=== PATIENT | female | born 1935 | race Caucasian/White ===

== ENCOUNTER 2018-05-09 16:05 | Inpatient (IN) | payer MEDICARE, OTHER ==
[~2018-05-09] VITALS: Ht 160 cm; Wt 59.7 kg
[~2018-05-09 16:05] MED LIST: APIX2.5T PO; ATOR10TA65 PO; CALC500T99 PO; CARV3.12 PO; CENTSILV PO; FERR325C PO; FURO-109 PO; LEVO-86 PO; PANT40TA4 PO; [UNRECOGNIZED DRUG - CODE] PO
[2018-05-09] MEDS ORDERED: SOD CHLORIDE 0.9% 500 ML IV STA (16:31)
--- NOTE | 2018-05-09 16:34 | ERD ---
ER Documentation Chief Complaint Chief Complaint BLOOD IN STOOL AND FEELING LIGHT HEADED HPI This is a 82-year-old female here for bright red blood in from rectum. The patient says she had a bowel movement today when she wiped there was bright red blood on the toilet paper. She says she is been constipated lately with straining. She says she does not remember if she was straining with his bowel movement. She said that she has no abdominal pain no rectal pain. The nephew has been taking care of her while the usual caretakers been out of town and he said that she has been sleeping more than usual and not eating quite as much. Patient has some mild dementia. She denies any cough or dysuria no vomiting or fever ROS All systems reviewed and are negative except as per history of present illness. Medications Home Meds Active Scripts Pantoprazole* (Pantoprazole*) 40 Mg Tabec, 40 MG PO DAILY@06 for 30 Days Prov:REGESTELLA SAUL 02/27/15 Furosemide* (Lasix*) 40 Mg Tab, 40 MG PO DAILY for 30 Days, TAB Prov:ESTELLA DRAKE 02/27/15 Reported Medications Apixaban* (Eliquis*) 2.5 Mg Tablet, 2.5 MG PO BID, TAB 02/22/15 Calcium Carbonate ([id number]) 1 Tab Tablet, 1 TAB PO BID, TAB 02/22/15 Atorvastatin Calcium (Atorvastatin Calcium) 10 Mg Tablet, 10 MG PO QHS, #30 TAB 02/22/15 Carvedilol* (Coreg*) 3.125 Mg Tablet, 3.125 MG PO BID, TAB 02/22/15 Levothyroxine Sodium (Levothroid) 100 Mcg Tablet, 100 MCG PO DAILY 02/22/12 Ferrous Sulfate (Iron) 325 Mg Capsr, 325 MG PO TID 02/22/12 Cyanocobalamin (Cyanocobalamin) 1,000 Mcg Tablet, 1000 MCG PO DAILY 02/22/12 Multivitamins/Minerals (Centrum Silver) 1 Tab Tab, 1 TAB PO DAILY 07/04/11 Allergies Allergies: Coded Allergies: No Known Allergy (Unverified , 03/01/15) PMhx/Soc History of Surgery: Yes (see EMR) Anesthesia Reaction: No 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 EDEMA) Hx Psychiatric Problems: Yes (PSYCHOSIS) Hx Miscellaneous Medical Probl: No Hx Alcohol Use: No Hx Substance Use: No Hx Tobacco Use: No FmHx Family History: No coronary disease Physical Exam Vitals Vital Signs Date Temp Pulse Resp B/P (MAP) Pulse Ox O2 O2 Flow FiO2 Time Delivery Rate 05/09/18 Nasal 16:38 Cannula 05/09/18 98.0 60 18 110/59 99 Room Air 16:35 (76) 05/09/18 97.2 71 18 111/55 99 16:11 (73) Physical Exam Const: Well-developed, well-nourished Head: Atraumatic, normocephalic Eyes: Normal Conjunctiva, PERRLA, EOMI, normal sclera, no nystagmus ENT: Normal External Ears, Nose and Mouth, moist mucus membranes. Neck: Full range of motion. No meningismus, no lymphadenopathy. Resp: Clear to auscultation bilaterally, no wheezing, rhonchi, rales Cardio: Regular rate and rhythm, no murmurs, S1 S2 present Abd: Soft, non tender x 4, non distended. Normal bowel sounds, no guarding or rebound, no pulsitile abdominal masses or bruits Skin: No petechiae or rashes, no ecchymosis , no maculopapular rash Back: No midline or flank tenderness Ext: No cyanosis, or edema, FROM x 4, normal inspection, neurovascularly intact x 4 Neur: Awake and alert, STR 5/5 x 4, sensation intact x 4, no focal findings, cerebellum intact Psych: Normal Mood and Affect Result Diagram: 05/09/18 1651 05/09/18 1651 Results 24 hrs Laboratory Tests Test 05/09/18 16:51 White Blood Count 8.1 10^3/ul Red Blood Count 2.23 10^6/ul Hemoglobin 7.6 g/dl Hematocrit 24.5 % Mean Corpuscular Volume 109.9 fl Mean Corpuscular Hemoglobin 34.1 pg Mean Corpuscular Hemoglobin Concent 31.0 g/dl Red Cell Distribution Width 13.9 % Platelet Count 223 10^3/UL Mean Platelet Volume 9.1 fl Immature Granulocytes % 0.500 % Neutrophils % 80.2 % Lymphocytes % 10.1 % Monocytes % 7.5 % Eosinophils % 1.2 % Basophils % 0.5 % Nucleated Red Blood Cells % 0.0 /100WBC Immature Granulocytes # 0.040 10^3/ul Neutrophils # 6.5 10^3/ul Lymphocytes # 0.8 10^3/ul Monocytes # 0.6 10^3/ul Eosinophils # 0.1 10^3/ul Basophils # 0.0 10^3/ul Nucleated Red Blood Cells # 0.0 10^3/ul Prothrombin Time 16.2 Sec Prothrombin Time Ratio 1.3 INR International Normalized Ratio 1.29 Activated Partial Thromboplast Time 30.1 Sec Sodium Level 139 mmol/L Potassium Level 4.4 mmol/L Chloride Level 102 mmol/L Carbon Dioxide Level 26 mmol/L Anion Gap 11 Blood Urea Nitrogen 43 mg/dl Creatinine 1.88 mg/dl Est Glomerular Filtrat Rate mL/min mL/min Glucose Level 117 mg/dl Calcium Level 9.4 mg/dl Total Bilirubin 0.0 mg/dl Direct Bilirubin 0.00 mg/dl Indirect Bilirubin 0.0 mg/dl Aspartate Amino Transf (AST/SGOT) 27 IU/L Alanine Aminotransferase (ALT/SGPT) 20 IU/L Alkaline Phosphatase 55 IU/L Total Protein 6.6 g/dl Albumin 3.9 g/dl Globulin 2.70 g/dl Albumin/Globulin Ratio 1.44 Current Medications Medications Dose Sig/Arvin Start Time Status Last (Trade) Ordered Route PRN Stop Time Admin Dose Reason Admin Sodium 500 ml @ Q1H STAT 05/09/18 DC 05/09/18 Chloride 500 mls/hr IV 16:31 16:48 05/09/18 17:30 Procedures/MDM PROCEDURE: CT abdomen and pelvis without contrast. CLINICAL INDICATION: GI bleed TECHNIQUE: CT scan of the abdomen and pelvis without contrast was performed and is reconstructed at 2.5 mm contiguous axial intervals from the dome of the diaphragm to the inferior pubic rami.. The patient was scanned without intravenous contrast. Sagittal and coronal reformatted images were obtained from the axial source images. The calculated radiation dose measures 627 mGy centimeters. The CTDI measures 11.7 mGy. Individualized dose optimization technique was used for the performance of this exam. This included 1. Automated exposure control. 2. Adjustment of the mA and / or kV according to the patient's size. 3. Use of iterative reconstructed technique. COMPARISON: None. FINDINGS: Lungs are clear of any infiltrate or mass. There is no pleural effusion. There is cardiomegaly with a small pericardial effusion. The patient is post transaortic valve replacement. The liver is of normal size, contour and attenuation with no mass . Gallbladder has been removed and there is mild intrahepatic and extrahepatic bile duct dila tation. No stone is seen.. No splenic, adrenal or pancreatic abnormalities present. The left kidney is atrophic. Right kidney is of normal size. Noted is a 15 mm cortical cyst of the right kidney. No hydronephrosis, calculus or masses seen. Ureters are of normal course and caliber with no stone. No bladder masses stone is present. Atrophic postmenopausal uterus appears normal. Atrophic postmenop ausal uterus appears normal. No adnexal mass is seen. There is no aneurysm. There is calcified plaque in the aorta and iliac arteries. No adenopathy is present. No bowel mass or obstruction is present. There is diverticulosis. The appendix is not confidently visualized.. No phlegmon, ascites or pneumoperitoneum is visualized. Senescent degenerative changes are seen in the spine. There is a chronic mild superior endplate compression fracture of T12. IMPRESSION: No evidence of urolithiasis, obstructive uropathy or diverticulitis. Diverticulosis. Nonvisualization appendix. Atrophic left kidney. Right renal cyst. No further workup required. Cholecystectomy. Cardiomegaly. T A V R.. Vascular calcifications. .Trevor Horn MD, MD Date Time Electronically viewed and signed by .Trevor Horn MD, MD on 05/09/2018 17:25 .A/ CC: EDYTA GARZON DO [id number] Ordering MD: EDYTA GARZON DO Location: E/R Room/Bed: PROCEDURE: XR Chest. CLINICAL INDICATION: GI bleed TECHNIQUE: Frontal chest x-ray was obtained. COMPARISON: Chest x-ray January 26, 2016 FINDINGS: There is cardiomegaly. Pacemaker wire is seen in the heart and patient is status post transaortic valve replacement.. Mediastinum is not widened. No hilar masses seen. Lungs are clear of any infiltrates. There is no effusion or pneumothorax. The osseous structures appear normal. IMPRESSION: Cardiomegaly. No pneumonia or failure. .Trevor Horn MD, Date Time Electronically viewed and signed by .Trevor Horn MD, on 05/09/2018 17:15 .A/ CC: EDYTA GARZON DO [id number] Type and cross 2 units of packed red cells to get for hemoglobin of 7.6. Patient is having some lower GI bleeding, she is on Xarelto for blood thinning purposes and is anemia requiring some blood I think is best to admit her give her some blood, have GI see her for colonoscopy. She likely has internal hemorrhoids but we need to make sure there is no other pathology there. I have paged Dr. robertson Departure Diagnosis: Primary Impression: Lower GI bleed Condition: Stable EDYTA GARZON DO May 09, 2018 16:34
[2018-05-09] MEDS ORDERED: ONDANSETRON 4 MG INJ IV PRN (21:00)
[2018-05-09] MEDS ORDERED: ACETAMINOPHEN 325 MG TAB PO PRN (21:00)
--- NOTE | 2018-05-09 21:15 | HP ---
Date/Time of Note Date/Time of Note DATE: 05/09/18 TIME: 21:03 Assessment/Plan VTE Prophylaxis SCD applied (from Nsg): Yes Pharmacological prophylaxis: NA/contraindicated Pharm contraindication: bleeding Lines/Catheters IV Catheter Type (from Nrsg): Saline Lock Assessment/Plan Hospital Course 82 yo female with h/o TAVR, A Fib on Xarelto, CKD II, dementia presents with GI bleeding Acute blood loss anemia: - Hold Xarelto - Transfuse PRBCs and monitor H/H - Start PPI - GI consulted A Fib, s/p TAVR: - Hold Xarelto for now - [facility] Dr Garcia alerted to admission, will see on Friday. If needed contact Dr Michelle tomorrow S/p PPM for SSS CKD III: - Stable, monitor creatinine CHF: - Continue lasix - Hold Coreg and Entresto until hemodynamics and bleeding stabilize Dementia: - Stable Dispo to home when stable Result Diagram: 05/09/18 1651 05/09/18 1651 Results 24hrs Laboratory Tests Test 05/09/18 16:51 White Blood Count 8.1 Red Blood Count 2.23 #L Hemoglobin 7.6 #L Hematocrit 24.5 #L Mean Corpuscular Volume 109.9 H Mean Corpuscular Hemoglobin 34.1 H Mean Corpuscular Hemoglobin Concent 31.0 L Red Cell Distribution Width 13.9 Platelet Count 223 Mean Platelet Volume 9.1 Immature Granulocytes % 0.500 H Neutrophils % 80.2 H Lymphocytes % 10.1 L Monocytes % 7.5 Eosinophils % 1.2 Basophils % 0.5 Nucleated Red Blood Cells % 0.0 Immature Granulocytes # 0.040 H Neutrophils # 6.5 Lymphocytes # 0.8 Monocytes # 0.6 Eosinophils # 0.1 Basophils # 0.0 Nucleated Red Blood Cells # 0.0 Prothrombin Time 16.2 H Prothrombin Time Ratio 1.3 INR International Normalized Ratio 1.29 Activated Partial Thromboplast Time 30.1 Sodium Level 139 Potassium Level 4.4 Chloride Level 102 Carbon Dioxide Level 26 Anion Gap 11 Blood Urea Nitrogen 43 H Creatinine 1.88 H Est Glomerular Filtrat Rate mL/min Glucose Level 117 Calcium Level 9.4 Total Bilirubin 0.0 L Direct Bilirubin 0.00 Indirect Bilirubin 0.0 Aspartate Amino Transf (AST/SGOT) 27 Alanine Aminotransferase (ALT/SGPT) 20 Alkaline Phosphatase 55 Total Protein 6.6 Albumin 3.9 Globulin 2.70 Albumin/Globulin Ratio 1.44 HPI/ROS Admit Date/Time Admit Date/Time Hx of Present Illness 82 yo female wtih h/o TAVR, A Fib s/p PPM, COPD, CKD II, dementia presenting with hematochezia Patient with mild dementia, unable to provide comprehensive history. Says she generally feels well however. No pain, no SOB. Per daughter at bedside, her mother complained of blood in the toilet today. She has noticed her being less energetic lately as well. In ED, found to be anemic to 7 Hgb, being tranfused PRBCs. No other complaints. Currently on Xarelto. No NSAIDs ROS Constitutional: no complaints, improved Eyes: no complaints ENT: no complaints Respiratory: no complaints Cardiovascular: no complaints Gastrointestinal: no complaints Genitourinary: no complaints Musculoskeletal: no complaints Skin: no complaints Neurologic: no complaints Endocrine: no complaints Lymphatic: no complaints Psychological: no complaints, nl mood/affect Immunologic: no complaints PMH/Family/Social Past Medical History TAVR Dementia CHF CKD II Medications Current Medications Ondansetron HCl (Zofran Inj) 4 mg ER BRIDGE PRN IV NAUSEA/VOMITING; Start 05/09/18 at 21:00; Stop 05/10/18 at 20:59 Acetaminophen (Tylenol Tab) 650 mg ER BRIDGE PRN PO .MILD PAIN 1-3 OR TEMP; Start 05/09/18 at 21:00; Stop 05/10/18 at 20:59 Coded Allergies: No Known Allergy (Unverified , 03/01/15) Social History Smoking Status: Never smoker Exam/Review of Systems Vital Signs Vitals Vital Signs Date Temp Pulse Resp B/P (MAP) Pulse Ox O2 O2 Flow FiO2 Time Delivery Rate 05/09/18 Nasal 16:38 Cannula 05/09/18 98.0 60 18 110/59 99 16:35 (76) Exam Exam Alert, pleasant, interactive Pale No distress Mild dementia RRR, 1/6 systolic murmur Slightly elevated neck veins Breathing comfortably Abdomen soft nt nd Ext without edema ANNE MARIEGRKATHY ELIZABETH MD May 09, 2018 21:15
[2018-05-09] MEDS ORDERED: NACL 0.9% 3 ML SYG IV SCH (21:30)
[2018-05-09 21:47] VITALS: PULSE 60
[2018-05-09] MEDS: PANTOPRAZOLE 40 MG INJ IV SCH (23:40)
[2018-05-10] VITALS (13 sets, daily range): BP systolic 116–172; BP diastolic 56–85; PULSE 60–79; RESP 18–20
[2018-05-10] MEDS: DEXTROSE 5% 1,000 ML IV SCH ×3 (03:11→23:13)
[2018-05-10] MEDS: LEVOTHYROXINE 100 MCG TAB PO SCH (05:59)
[2018-05-10] MEDS: PANTOPRAZOLE 40 MG INJ IV SCH ×2 (06:01→17:00)
[2018-05-10] MEDS: FUROSEMIDE 40 MG TAB PO SCH (08:45)
[2018-05-10] MEDS ORDERED: LEVOTHYROXINE (25 MCG/ML PO SYG) PO SCH (09:00)
--- NOTE | 2018-05-10 13:32 | CONS ---
Assessment/Plan Assessment/Plan Assessment/Plan (Daily) Assessment: Hematochezia Anemia Dementia A-fib - on Xarelto - held CKD CHF Plan: Colonoscopy tomorrow Clear liquid diet INR - 1.29 Monitor H and H Transfuse for hemoglobin less then 7.5 Patient seen in collaboration with Dr. Hendrickson Consultation Date/Type/Reason Admit Date/Time Date of Consultation: May 10, 2018 Type of Consult GI Reason for Consultation Hematochezia Date/Time of Note DATE: 05/10/18 TIME: 13:18 Hx of Present Illness This is an 82 yo female with h/o TAVR, A Fib s/p PPM, COPD, CKD II, dementia who was admitted for rectal bleeding that started yesterday. Patient had Hgb of 7.6 requiring a blood transfusion . She denies any h/o EGD of colonoscopy. She was on Xarelto for A-fib. Currently denies abd pain, nausea, vomiting, Hematemesis, Melena, diarrhea or constipation . Patient has occasional constipation at baseline. The plan is to prep the patient for Colonoscopy for tomorrow. Risks and benefits of the procedure have been discussed with the patient. Patient is agreeable to the procedure. Gastrointestinal: no complaints Past Medical History CHF, A-fib, CKD, Dementia Home Meds Active Scripts Pantoprazole* (Pantoprazole*) 40 Mg Tabec, 40 MG PO DAILY@06 for 30 Days Prov:ESTELLA DRAKE 02/27/15 Furosemide* (Lasix*) 40 Mg Tab, 40 MG PO DAILY for 30 Days, TAB Prov:ESTELLA DRAKE 02/27/15 Reported Medications Apixaban* (Eliquis*) 2.5 Mg Tablet, 2.5 MG PO BID, TAB 02/22/15 Calcium Carbonate ([id number]) 1 Tab Tablet, 1 TAB PO BID, TAB 02/22/15 Atorvastatin Calcium (Atorvastatin Calcium) 10 Mg Tablet, 10 MG PO QHS, #30 TAB 02/22/15 Carvedilol* (Coreg*) 3.125 Mg Tablet, 3.125 MG PO BID, TAB 02/22/15 Levothyroxine Sodium (Levothroid) 100 Mcg Tablet, 100 MCG PO DAILY 02/22/12 Ferrous Sulfate (Iron) 325 Mg Capsr, 325 MG PO TID 02/22/12 Cyanocobalamin (Cyanocobalamin) 1,000 Mcg Tablet, 1000 MCG PO DAILY 02/22/12 Multivitamins/Minerals (Centrum Silver) 1 Tab Tab, 1 TAB PO DAILY 07/04/11 Medications Current Medications Ondansetron HCl (Zofran Inj) 4 mg ER BRIDGE PRN IV NAUSEA/VOMITING; Start 05/09/18 at 21:00; Stop 05/10/18 at 20:59 Acetaminophen (Tylenol Tab) 650 mg ER BRIDGE PRN PO .MILD PAIN 1-3 OR TEMP; Start 05/09/18 at 21:00; Stop 05/10/18 at 20:59 Furosemide (Lasix) 40 mg DAILY PO Last administered on 05/10/18at 08:45; Admin Dose 40 MG; Start 05/10/18 at 09:00 Levothyroxine Sodium (Synthroid) 100 mcg DAILY@06 PO ; Start 05/10/18 at 06:00 IV Flush (NS 3 ml) 3 ml PER PROTOCOL IV ; Start 05/09/18 at 21:30 Pantoprazole (Protonix Iv) 40 mg BID@0600,1800 IV Last administered on 05/10/18at 06:01; Admin Dose 40 MG; Start 05/09/18 at 21:30 Dextrose 1,000 ml @ 80 mls/hr [id number] IV Last administered on 05/10/18at 10:26; Admin Dose 80 MLS/HR; Start 05/09/18 at 21:30 Allergies: Coded Allergies: No Known Allergy (Unverified , 03/01/15) Social History Alcohol Use: none Smoking Status: Never smoker Drug Use: none Exam/Review of Systems Exam Vitals Vital Signs Date Temp Pulse Resp B/P (MAP) Pulse Ox O2 O2 Flow FiO2 Time Delivery Rate 05/10/18 60 12:43 05/10/18 97.8 19 132/66 96 11:25 (88) 05/10/18 Room Air 03:45 Intake and Output 05/09/18 05/09/18 05/10/18 1515:00 23:00 07:00 IntakeIntake Total 240 ml OutputOutput Total 2 ml BalanceBalance 238 ml Exam PHYSICAL EXAMINATION: GENERAL: Well developed, well nourished, alert & oriented x 3, in no acute d istress SKIN: No lesions, no stigmata chronic liver disease, no evidence of bleeding diathesis LYMPHATIC: No palpable lymphadenopathy. HEAD: Normocephalic, atraumatic, no tenderness. EYES: Pupils equal reactive to light and accommodation, full extraocular movements, sclera clear, non-icteric, no discharge. EARS/NOSE AND THROAT: Ears normal, nose normal, oropharynx normal, oral membranes well hydrated without lesions. NECK: Supple, no masses, thyroid normal, JVP within normal limits, carotids nor mal without bruits. CHEST: Inspection within normal limits. CARDIOVASCULAR: Heart: Regular rate and rhythm, no murmurs, gallops or rubs. Peripheral pulses present within normal limits, no cyanosis, clubbing or edemas. No pulsatile abdominal mass RESPIRATORY: Lungs clear to auscultation and percussion, no wheezing, no rubs GASTROINTESTINAL AND LIVER: Abdomen: Soft, non tenderness, non-distended, no hernias, no masses, no organomegaly, no ascites, no guarding, no rebound tenderness, normoactive bowel sounds. Rectal: Deferred. GENITOURINARY: Female genitalia within normal limits. EXTREMITIES: No cyanosis, clubbing or edema. Results Result Diagram: 05/10/18 0459 05/10/18 0459 Results 24hrs Laboratory Tests Test 05/09/18 16:51 05/10/18 04:55 05/10/18 04:58 05/10/18 04:59 White Blood Count 8.1 6.9 Red Blood Count 2.23 #L 3.08 #L Hemoglobin 7.6 #L 10.0 #L Hematocrit 24.5 #L 30.9 #L Mean Corpuscular 109.9 H 100.3 Volume Mean Corpuscular 34.1 H 32.5 Hemoglobin Mean Corpuscular 31.0 L 32.4 Hemoglobin Concen t Red Cell 13.9 16.3 H Distribution Width Platelet Count 223 192 Mean Platelet 9.1 9.8 Volume Immature 0.500 H 0.300 Granulocytes % Neutrophils % 80.2 H 71.0 Lymphocytes % 10.1 L 17.5 Monocytes % 7.5 9.1 Eosinophils % 1.2 1.7 Basophils % 0.5 0.4 Nucleated Red 0.0 0.0 Blood Cells % Immature 0.040 H 0.020 Granulocytes # Neutrophils # 6.5 4.9 Lymphocytes # 0.8 1.2 Monocytes # 0.6 0.6 Eosinophils # 0.1 0.1 Basophils # 0.0 0.0 Nucleated Red 0.0 0.0 Blood Cells # Prothrombin Time 16.2 H Prothrombin Time 1.3 Ratio INR International 1.29 Normalized Ratio Activated 30.1 Partial Thrombopl ast Time Sodium Level 139 141 Potassium Level 4.4 4.6 Chloride Level 102 109 Carbon Dioxide 26 23 Level Anion Gap 11 9 Blood Urea 43 H 41 H Nitrogen Creatinine 1.88 H 1.67 H Est Glomerular Filtrat Rate mL/min Glucose Level 117 93 Calcium Level 9.4 9.0 Total Bilirubin 0.0 L 0.6 Direct Bilirubin 0.00 0.00 Indirect 0.0 0.6 Bilirubin Aspartate Amino 27 32 Transf (AST/SGOT) Alanine 20 15 Aminotransferase (ALT/SGPT) Alkaline 55 42 Phosphatase Total Protein 6.6 5.7 L Albumin 3.9 3.3 Globulin 2.70 2.40 Albumin/Globulin 1.44 1.37 Ratio Urine Color YELLOW Urine Clarity SLIGHTLY CLOUDY A Urine pH 6.0 Urine Specific 1.013 [place] Urine Ketones NEGATIVE Urine Nitrite NEGATIVE Urine Bilirubin NEGATIVE Urine NEGATIVE Urobilinogen Urine Leukocyte 3+ H Esterase Urine Microscopic 10 H RBC Urine Microscopic 40 H WBC Urine Squamous FEW Epithelial Cells Urine Amorphous FEW A Crystals Urine Bacteria FEW A Urine Hemoglobin 2+ H Urine Glucose NEGATIVE Urine Total NEGATIVE Protein Iron Level 127 Total Iron 253 Binding Capacity Percent Iron 50 Saturation Ferritin 523.0 H Hemoglobin A1c 5.4 Test 05/10/18 10:06 Stool Occult POSITIVE Blood Medications Medication Current Medications Ondansetron HCl (Zofran Inj) 4 mg ER BRIDGE PRN IV NAUSEA/VOMITING; Start 05/09/18 at 21:00; Stop 05/10/18 at 20:59 Acetaminophen (Tylenol Tab) 650 mg ER BRIDGE PRN PO .MILD PAIN 1-3 OR TEMP; Start 05/09/18 at 21:00; Stop 05/10/18 at 20:59 Furosemide (Lasix) 40 mg DAILY PO Last administered on 05/10/18at 08:45; Admin Dose 40 MG; Start 05/10/18 at 09:00 Levothyroxine Sodium (Synthroid) 100 mcg DAILY@06 PO ; Start 05/10/18 at 06:00 IV Flush (NS 3 ml) 3 ml PER PROTOCOL IV ; Start 05/09/18 at 21:30 Pantoprazole (Protonix Iv) 40 mg BID@0600,1800 IV Last administered on 05/10/18at 06:01; Admin Dose 40 MG; Start 05/09/18 at 21:30 Dextrose 1,000 ml @ 80 mls/hr [id number] IV Last administered on 05/10/18at 10:26; Admin Dose 80 MLS/HR; Start 05/09/18 at 21:30 RICKEY HARTMANN NP May 10, 2018 13:29
[2018-05-10] MEDS ORDERED: BISACODYL (EC) 5 MG TAB PO ONE (14:00)
--- NOTE | 2018-05-10 14:19 | PN ---
Date/Time of Note Date/Time of Note DATE: 05/10/18 TIME: 14:16 Assessment/Plan VTE Prophylaxis Risk score (from Ns)>0 risk: 6 SCD applied (from Ns): Yes Pharmacological prophylaxis: heparin Lines/Catheters IV Catheter Type (from Nrs): Saline Lock Urinary Cath still in place: No Assessment/Plan Hospital Course 82 yo female with h/o TAVR, A Fib on Xarelto, CKD II, dementia presents with GI bleeding Acute blood loss anemia: - Colonoscopy tomorrow - Hold Xarelto - Transfuse PRBCs and monitor H/H - Start PPI A Fib, s/p TAVR: - Hold Xarelto for now, decision to continue it post colonoscopy per Dr Garcia - Behavioral Health Case Manager Dr Garcia alerted to admission, will see on Friday S/p PPM for SSS CKD III: - Stable, monitor creatinine CHF: - Continue lasix - Hold Coreg and Entresto until hemodynamics and bleeding stabilize Dementia: - Stable Dispo to home when stable Result Diagram: 05/10/18 0459 05/10/18 0459 Results 24hrs Laboratory Tests Test 05/09/18 16:51 05/10/18 04:55 05/10/18 04:58 05/10/18 04:59 White Blood Count 8.1 6.9 Red Blood Count 2.23 #L 3.08 #L Hemoglobin 7.6 #L 10.0 #L Hematocrit 24.5 #L 30.9 #L Mean Corpuscular 109.9 H 100.3 Volume Mean Corpuscular 34.1 H 32.5 Hemoglobin Mean Corpuscular 31.0 L 32.4 Hemoglobin Concen t Red Cell 13.9 16.3 H Distribution Width Platelet Count 223 192 Mean Platelet 9.1 9.8 Volume Immature 0.500 H 0.300 Granulocytes % Neutrophils % 80.2 H 71.0 Lymphocytes % 10.1 L 17.5 Monocytes % 7.5 9.1 Eosinophils % 1.2 1.7 Basophils % 0.5 0.4 Nucleated Red 0.0 0.0 Blood Cells % Immature 0.040 H 0.020 Granulocytes # Neutrophils # 6.5 4.9 Lymphocytes # 0.8 1.2 Monocytes # 0.6 0.6 Eosinophils # 0.1 0.1 Basophils # 0.0 0.0 Nucleated Red 0.0 0.0 Blood Cells # Prothrombin Time 16.2 H Prothrombin Time 1.3 Ratio INR International 1.29 Normalized Ratio Activated 30.1 Partial Thrombopl ast Time Sodium Level 139 141 Potassium Level 4.4 4.6 Chloride Level 102 109 Carbon Dioxide 26 23 Level Anion Gap 11 9 Blood Urea 43 H 41 H Nitrogen Creatinine 1.88 H 1.67 H Est Glomerular Filtrat Rate mL/min Glucose Level 117 93 Calcium Level 9.4 9.0 Total Bilirubin 0.0 L 0.6 Direct Bilirubin 0.00 0.00 Indirect 0.0 0.6 Bilirubin Aspartate Amino 27 32 Transf (AST/SGOT) Alanine 20 15 Aminotransferase (ALT/SGPT) Alkaline 55 42 Phosphatase Total Protein 6.6 5.7 L Albumin 3.9 3.3 Globulin 2.70 2.40 Albumin/Globulin 1.44 1.37 Ratio Urine Color YELLOW Urine Clarity SLIGHTLY CLOUDY A Urine pH 6.0 Urine Specific 1.013 Rosamond Urine Ketones NEGATIVE Urine Nitrite NEGATIVE Urine Bilirubin NEGATIVE Urine NEGATIVE Urobilinogen Urine Leukocyte 3+ H Esterase Urine Microscopic 10 H RBC Urine Microscopic 40 H WBC Urine Squamous FEW Epithelial Cells Urine Amorphous FEW A Crystals Urine Bacteria FEW A Urine Hemoglobin 2+ H Urine Glucose NEGATIVE Urine Total NEGATIVE Protein Iron Level 127 Total Iron 253 Binding Capacity Percent Iron 50 Saturation Ferritin 523.0 H Hemoglobin A1c 5.4 Test 05/10/18 10:06 Stool Occult POSITIVE Blood Subjective 24 Hr Interval Summary Free Text/Dictation Stable since yesterday No further bleeding clinically To undergo prep for colonoscopy tomorrow Exam/Review of Systems Exam Vitals Vital Signs Date Temp Pulse Resp B/P (MAP) Pulse Ox O2 O2 Flow FiO2 Time Delivery Rate 05/10/18 60 12:43 05/10/18 97.8 19 132/66 96 11:25 (88) 05/10/18 Room Air 03:45 Intake and Output 05/09/18 05/09/18 05/10/18 1515:00 23:00 07:00 IntakeIntake Total 240 ml OutputOutput Total 2 ml BalanceBalance 238 ml Constitutional: alert, oriented, well developed Psych: no complaints, nl mood/affect Head: normocephalic, atraumatic Eyes: nl conjunctiva, EOMI, nl lids, nl sclera, PERRL ENMT: nl external ears & nose, nl lips & teeth, nl nasal mucosa & septum Neck: supple, non-tender Respiratory: clear to auscultation, normal air movement Cardiovascular: regular rate and rhythm, nl pulses Gastrointestinal: soft, nl liver, spleen, non-tender Musculoskeletal: nl extremities to inspection, nl gait and stance Extremities: normal pulses Neurological: [employer]NER [employer] CON[employer]ANT II-XII intact, nl mental status, nl speech, nl strength Skin: nl turgor; No rash or lesions Lymph: nl lymph nodes Results Results 24hrs Laboratory Tests Test 05/09/18 16:51 05/10/18 04:55 05/10/18 04:58 05/10/18 04:59 White Blood Count 8.1 6.9 Red Blood Count 2.23 #L 3.08 #L Hemoglobin 7.6 #L 10.0 #L Hematocrit 24.5 #L 30.9 #L Mean Corpuscular 109.9 H 100.3 Volume Mean Corpuscular 34.1 H 32.5 Hemoglobin Mean Corpuscular 31.0 L 32.4 Hemoglobin Concen t Red Cell 13.9 16.3 H Distribution Width Platelet Count 223 192 Mean Platelet 9.1 9.8 Volume Immature 0.500 H 0.300 Granulocytes % Neutrophils % 80.2 H 71.0 Lymphocytes % 10.1 L 17.5 Monocytes % 7.5 9.1 Eosinophils % 1.2 1.7 Basophils % 0.5 0.4 Nucleated Red 0.0 0.0 Blood Cells % Immature 0.040 H 0.020 Granulocytes # Neutrophils # 6.5 4.9 Lymphocytes # 0.8 1.2 Monocytes # 0.6 0.6 Eosinophils # 0.1 0.1 Basophils # 0.0 0.0 Nucleated Red 0.0 0.0 Blood Cells # Prothrombin Time 16.2 H Prothrombin Time 1.3 Ratio INR International 1.29 Normalized Ratio Activated 30.1 Partial Thrombopl ast Time Sodium Level 139 141 Potassium Level 4.4 4.6 Chloride Level 102 109 Carbon Dioxide 26 23 Level Anion Gap 11 9 Blood Urea 43 H 41 H Nitrogen Creatinine 1.88 H 1.67 H Est Glomerular Filtrat Rate mL/min Glucose Level 117 93 Calcium Level 9.4 9.0 Total Bilirubin 0.0 L 0.6 Direct Bilirubin 0.00 0.00 Indirect 0.0 0.6 Bilirubin Aspartate Amino 27 32 Transf (AST/SGOT) Alanine 20 15 Aminotransferase (ALT/SGPT) Alkaline 55 42 Phosphatase Total Protein 6.6 5.7 L Albumin 3.9 3.3 Globulin 2.70 2.40 Albumin/Globulin 1.44 1.37 Ratio Urine Color YELLOW Urine Clarity SLIGHTLY CLOUDY A Urine pH 6.0 Urine Specific 1.013 Rosamond Urine Ketones NEGATIVE Urine Nitrite NEGATIVE Urine Bilirubin NEGATIVE Urine NEGATIVE Urobilinogen Urine Leukocyte 3+ H Esterase Urine Microscopic 10 H RBC Urine Microscopic 40 H WBC Urine Squamous FEW Epithelial Cells Urine Amorphous FEW A Crystals Urine Bacteria FEW A Urine Hemoglobin 2+ H Urine Glucose NEGATIVE Urine Total NEGATIVE Protein Iron Level 127 Total Iron 253 Binding Capacity Percent Iron 50 Saturation Ferritin 523.0 H Hemoglobin A1c 5.4 Test 05/10/18 10:06 Stool Occult POSITIVE Blood Medications Medication Current Medications Ondansetron HCl (Zofran Inj) 4 mg ER BRIDGE PRN IV NAUSEA/VOMITING; Start 05/09/18 at 21:00; Stop 05/10/18 at 20:59 Acetaminophen (Tylenol Tab) 650 mg ER BRIDGE PRN PO .MILD PAIN 1-3 OR TEMP; Start 05/09/18 at 21:00; Stop 05/10/18 at 20:59 Furosemide (Lasix) 40 mg DAILY PO Last administered on 05/10/18at 08:45; Admin Dose 40 MG; Start 05/10/18 at 09:00 Levothyroxine Sodium (Synthroid) 100 mcg DAILY@06 PO ; Start 05/10/18 at 06:00 IV Flush (NS 3 ml) 3 ml PER PROTOCOL IV ; Start 05/09/18 at 21:30 Pantoprazole (Protonix Iv) 40 mg BID@0600,1800 IV Last administered on 05/10/18at 06:01; Admin Dose 40 MG; Start 05/09/18 at 21:30 Dextrose 1,000 ml @ 80 mls/hr [id number] IV Last administered on 05/10/18at 10:26; Admin Dose 80 MLS/HR; Start 05/09/18 at 21:30 Magnesium Citrate (Citroma) 300 ml ONCE ONCE PO ; Start 05/10/18 at 17:30; Stop 05/10/18 at 17:31 Polyethylene Glycol (Miralax) 119 gm ONCE ONCE PO ; Start 05/10/18 at 18:30; Stop 05/10/18 at 18:31 Polyethylene Glycol (Miralax) 119 gm 2ND DOSE (GI PREP) ONCE PO ; Start 05/11/18 at 06:00; Stop 05/11/18 at 06:01 Bisacodyl (Dulcolax) 10 mg 2ND DOSE (GI PREP) ONCE PO ; Start 05/11/18 at 08:00; Stop 05/11/18 at 08:01 KATHY ESTEVEZ MD May 10, 2018 14:19
[2018-05-10] MEDS ORDERED: MAGNESIUM CITRATE 300 ML BTL PO ONE (17:30)
[2018-05-10] MEDS ORDERED: POLYETHYLENE GLYCOL 3350 119 GM POWDER PO ONE (18:30)
[2018-05-11] VITALS (22 sets, daily range): BP systolic 99–167; BP diastolic 53–79; PULSE 59–78; RESP 16–24
[2018-05-11] MEDS: LEVOTHYROXINE 100 MCG TAB PO SCH (05:33)
[2018-05-11] MEDS: PANTOPRAZOLE 40 MG INJ IV SCH ×2 (05:49→18:34)
[2018-05-11] MEDS ORDERED: POLYETHYLENE GLYCOL 3350 119 GM POWDER PO ONE (06:00)
[2018-05-11] MEDS ORDERED: BISACODYL (EC) 5 MG TAB PO ONE (08:00)
[2018-05-11] MEDS: DEXTROSE 5% 1,000 ML IV SCH ×3 (11:00→23:30)
[2018-05-11] MEDS: POTASSIUM CHLORIDE 100 ML IVPB SCH ×2 (13:30→16:55)
--- NOTE | 2018-05-11 15:27 | PREAC ---
Date/Time of Note Date/Time of Note DATE: 05/11/18 TIME: 15:25 Anesthesia Eval and Record Evaluation Time Pre-Procedure Interview DATE: 05/11/18 TIME: 15:25 Age 82 Sex female NPO: 8 hrs Preoperative diagnosis lOWER gI BLEEDING Planned procedure COLONOSCOPY Past Medical History Past Medical History: Includes Cardio: CHF, Other (aFIB) Endo: Hypothyroid Renal: CKD Surgery & Anesthesia Issues No known issue Meds Anticoagulation: No Beta Jacob within 24 hr: No Reason Beta Jacob not given: Pt. not on B-Jacob Active Scripts Pantoprazole* (Pantoprazole*) 40 Mg Tabec, 40 MG PO DAILY@06 for 30 Days Prov:ESTELLA DRAKE 02/27/15 Furosemide* (Lasix*) 40 Mg Tab, 40 MG PO DAILY for 30 Days, TAB Prov:ESTELLA DRAKE 02/27/15 Reported Medications Apixaban* (Eliquis*) 2.5 Mg Tablet, 2.5 MG PO BID, TAB 02/22/15 Calcium Carbonate ([id number]) 1 Tab Tablet, 1 TAB PO BID, TAB 02/22/15 Atorvastatin Calcium (Atorvastatin Calcium) 10 Mg Tablet, 10 MG PO QHS, #30 TAB 02/22/15 Carvedilol* (Coreg*) 3.125 Mg Tablet, 3.125 MG PO BID, TAB 02/22/15 Levothyroxine Sodium (Levothroid) 100 Mcg Tablet, 100 MCG PO DAILY 02/22/12 Ferrous Sulfate (Iron) 325 Mg Capsr, 325 MG PO TID 02/22/12 Cyanocobalamin (Cyanocobalamin) 1,000 Mcg Tablet, 1000 MCG PO DAILY 02/22/12 Multivitamins/Minerals (Centrum Silver) 1 Tab Tab, 1 TAB PO DAILY 07/04/11 Current Medications Furosemide (Lasix) 40 mg DAILY PO Last administered on 05/10/18at 08:45; Admin Dose 40 MG; Start 05/10/18 at 09:00 Levothyroxine Sodium (Synthroid) 100 mcg DAILY@06 PO ; Start 05/10/18 at 06:00 IV Flush (NS 3 ml) 3 ml PER PROTOCOL IV ; Start 05/09/18 at 21:30 Pantoprazole (Protonix Iv) 40 mg BID@0600,1800 IV Last administered on 05/11/18at 05:49; Admin Dose 40 MG; Start 05/09/18 at 21:30 Dextrose 1,000 ml @ 80 mls/hr [id number] IV Last administered on 05/10/18at 23:13; Admin Dose 80 MLS/HR; Start 05/09/18 at 21:30 Potassium Chloride 100 ml @ 50 mls/hr Q2H IVPB ; Start 05/11/18 at 11:30; Stop 05/11/18 at 15:29 Meds reviewed: Yes Allergies Coded Allergies: No Known Allergy (Unverified , 03/01/15) Allergies Reviewed: Yes Labs/Studies Labs Reviewed: Reviewed by anesthesiologist Result Diagram: 05/11/18 0456 05/11/18 0456 Laboratory Tests 05/11/18 04:56 test: N/A Studies: ECG (A FIB), CXR (CARDIOMEGALLY) Pre-procedure Exam Last vitals Vital Signs Date Temp Pulse Resp B/P (MAP) Pulse Ox O2 O2 Flow FiO2 Time Delivery Rate 05/11/18 97.5 60 20 167/79 98 Room Air 14:53 (108) Airway: Adequate mouth opening Mallampati: Mallampati I Teeth: Abnormal Lung: Normal Heart: Normal ASA Physical Status ASA physical status: 2 Emergency: None Planned Anesthetic General/MAC: MAC Planned Pain Management Cont. Nerve Block, Parenteral pain med Pre-operative Attestations Prior to commencing anesthesia and surgery, the patient was re-evaluated, there was verification of: *The patient's identity *The results of appropriate recent lab work and preoperative vital signs *The above evaluation not changing prior to induction *Anesthetic plan, risk benefits, alternative and complications discussed with patient/family; questions answered; patient/family understands, accepts and wishes to proceed. MIGUEL PAEZ MD May 11, 2018 15:27
[2018-05-11] MEDS ORDERED: PROPOFOL 20 ML ONE (15:28)
[2018-05-11] MEDS ORDERED: ONDANSETRON 4 MG INJ IV PRN (15:30)
[2018-05-11] MEDS: FUROSEMIDE 40 MG TAB PO SCH (16:55)
--- NOTE | 2018-05-11 17:08 | CONS ---
Assessment/Plan Assessment/Plan Hospital Course (Demo Recall) 1. Lower GI bleed 2. Severe anemia probably secondary to above 3. History of chronic atrial fibrillation 4. History of severe aortic stenosis status post TAVR 5. Congestive heart failure chronic secondary systolic heart failure and stable 6. Severe cardiomyopathy 7. Sick sinus syndrome status post permanent pacemaker [employer] pacemaker 8. Hypertension 9. Dementia 10. History of CVA Recommendations: GI workup and treatment as per GI. Eliquis on hold now We will resume her carvedilol and Entresto aldactone to be continued Diuretic will be continued Eliquis to be resumed once GI clearance is given Thank you for his referral. We will continue to follow along with you KAYLAH BAXTER MD [facility] Consultation Date/Type/Reason Admit Date/Time Date of Consultation: May 11, 2018 Type of Consult Cardiology Reason for Consultation CHF. cardiomyopathy Requesting Provider: SHIRA ANTOINE MD Date/Time of Note DATE: 05/11/18 TIME: 16:55 Hx of Present Illness Interventional cardiology consultation note Chief complaint: Rectal bleeding Reason for consult: Congestive heart failure, cardiomyopathy History of present illness: Thank you for this referral. History was then from the patient discussion multiple family want the bedside. Review of systems review of the old chart. Patient also very well-known to me from previous admission to the hospital. Discussed with the physicians as well This is a pleasant 82-year-old female with multiple complicated medical history who was admitted because of rectal bleeding. Patient has a poor memory. According to the family they were out of town when they came back to see how she had complained that she started having rectal bleeding. She was brought into the emergency was noted to be severely anemic. GI workup is being done. Patient has significant cardiac history including history of coronary artery disease history of atrial fibrillation CVA severe cardiomyopathy and congestive heart failure. She is on Eliquis because of her multiple cardiac risk factors. Has not had any prior history of bleeding. Because of her multiple cardiac history coronary angiogram 3. Distant denies any chest pain or pressure to me denies any palpitation PND orthopnea to me. Allergies: No known drug allergies Medications were reviewed as per medical reconciliation sheet which includes Eliquis 2.5 mg p.o. twice daily Lipitor 10 mg p.o. nightly Coreg 6.25 p.o. twice daily iron Lasix daily levothyroxine 100 mcg p.o. daily omeprazole 20 Entresto [id number] Aldactone 12.5 a tablet p.o. daily Family history: No reported history of early coronary artery disease Social history: No tobacco alcohol drug abuse Past medical history: Severe aortic stenosis status post TAVR Chronic atrial fibrillation with a slow ventricular response status post permanent pacemaker Coronary artery disease status post PTCA Moderate to severe MR TR moderate AI Pulmonary hypertension/congestive heart failure CVA Dementia Hypertension Dyslipidemia Thyroid disorder Surgical history: 08/25/2012: VVI permanent pacemaker using a [employer] pacemaker done by 10/15/2011: TAVR at [facility] by Dr Leonard 04/18/11: [facility] corey PTCA RCA: LA 20% LAD 40% LCX 50% RCA distal 75% ---> 0% post PCI, KELLEN 0.6 cm, mod/severe MR Review of system: Patient denies all others except for above-mentioned Past Medical History Home Meds Active Scripts Pantoprazole* (Pantoprazole*) 40 Mg Tabec, 40 MG PO DAILY@06 for 30 Days Prov:ESTELLA DRAKE 02/27/15 Furosemide* (Lasix*) 40 Mg Tab, 40 MG PO DAILY for 30 Days, TAB Prov:ESTELLA DRAKE 02/27/15 Reported Medications Apixaban* (Eliquis*) 2.5 Mg Tablet, 2.5 MG PO BID, TAB 02/22/15 Calcium Carbonate ([id number]) 1 Tab Tablet, 1 TAB PO BID, TAB 02/22/15 Atorvastatin Calcium (Atorvastatin Calcium) 10 Mg Tablet, 10 MG PO QHS, #30 TAB 02/22/15 Carvedilol* (Coreg*) 3.125 Mg Tablet, 3.125 MG PO BID, TAB 02/22/15 Levothyroxine Sodium (Levothroid) 100 Mcg Tablet, 100 MCG PO DAILY 02/22/12 Ferrous Sulfate (Iron) 325 Mg Capsr, 325 MG PO TID 02/22/12 Cyanocobalamin (Cyanocobalamin) 1,000 Mcg Tablet, 1000 MCG PO DAILY 02/22/12 Multivitamins/Minerals (Centrum Silver) 1 Tab Tab, 1 TAB PO DAILY 07/04/11 Medications Current Medications Furosemide (Lasix) 40 mg DAILY PO Last administered on 05/10/18at 08:45; Admin Dose 40 MG; Start 2/24/19 at 09:00 Levothyroxine Sodium (Synthroid) 100 mcg DAILY@06 PO ; Start 05/10/18 at 06:00 IV Flush (NS 3 ml) 3 ml PER PROTOCOL IV ; Start 05/09/18 at 21:30 Pantoprazole (Protonix Iv) 40 mg BID@0600,1800 IV Last administered on 05/11/18at 05:49; Admin Dose 40 MG; Start 05/09/18 at 21:30 Dextrose 1,000 ml @ 80 mls/hr [id number] IV Last administered on 05/10/18at 23:13; Admin Dose 80 MLS/HR; Start 05/09/18 at 21:30 Ondansetron HCl (Zofran Inj) 4 mg PACU ORDER PRN IV NAUSEA/VOMITING; Start 05/11/18 at 15:30; Stop 05/11/18 at 19:30 Allergies: Coded Allergies: No Known Allergy (Unverified , 03/01/15) Social History Alcohol Use: none Smoking Status: Never smoker Drug Use: none Exam/Review of Systems Vital Signs Vitals Vital Signs Date Temp Pulse Resp B/P (MAP) Pulse Ox O2 O2 Flow FiO2 Time Delivery Rate 05/11/18 60 16:36 05/11/18 20 125/63 99 Room Air 16:25 (83) 05/11/18 2.0 16:15 05/11/18 98.3 15:51 Intake and Output 05/10/18 05/10/18 05/11/18 1515:00 23:00 07:00 IntakeIntake Total 1000 ml 2000 ml OutputOutput Total 5 ml 5 ml BalanceBalance 995 ml 1995 ml Exam Exam General: Thin elderly female acute to be older than stated age in no acute distress HEENT: NC/AT. pupils are equal. round. NECK: NO JVD. no stridor. CV: RRR. systolic murmur; no gallop or rubs. PULM: no wheezing or rhonchi. GI: SOFT, NT, ND, no rebound or guarding Extremity: trace B/L LE edema. no clubbing. neuro: awake and alert, OX2. Psych: calm and pleasant rectal: deferred Review of the old chart showed the patient echocardiogram done September 2017 has shown ejection fraction of 30% with mild to moderate MR with trace AI. Mild MR mild to moderate TR PA pressure was 49 mm mid Eulalio with biatrial enlargement History of present 05/09/2018 shows Cardiomegaly. No pneumonia or failure. Labs Result Diagram: 05/11/18 0456 05/11/18 0456 Results 24hrs Laboratory Tests Test 05/11/18 04:56 05/11/18 07:53 White Blood Count 7.7 Red Blood Count 3.52 L Hemoglobin 11.7 L Hematocrit 34.7 L Mean Corpuscular Volume 98.6 Mean Corpuscular Hemoglobin 33.2 H Mean Corpuscular Hemoglobin Concent 33.7 Red Cell Distribution Width 15.8 H Platelet Count 195 Mean Platelet Volume 9.5 Immature Granulocytes % 0.500 H Neutrophils % 76.5 Lymphocytes % 10.4 L Monocytes % 10.4 Eosinophils % 1.7 Basophils % 0.5 Nucleated Red Blood Cells % 0.0 Immature Granulocytes # 0.040 H Neutrophils # 5.9 Lymphocytes # 0.8 Monocytes # 0.8 Eosinophils # 0.1 Basophils # 0.0 Nucleated Red Blood Cells # 0.0 Sodium Level 141 Potassium Level 3.4 L Chloride Level 98 # Carbon Dioxide Level 31 Anion Gap 12 Blood Urea Nitrogen 35 H Creatinine 1.69 H Est Glomerular Filtrat Rate mL/min Glucose Level 99 Calcium Level 10.1 Lab Scanned Report BLOOD TRANSFUSION Medications Medications Current Medications Furosemide (Lasix) 40 mg DAILY PO Last administered on 05/10/18at 08:45; Admin Dose 40 MG; Start 05/10/18 at 09:00 Levothyroxine Sodium (Synthroid) 100 mcg DAILY@06 PO ; Start 05/10/18 at 06:00 IV Flush (NS 3 ml) 3 ml PER PROTOCOL IV ; Start 05/09/18 at 21:30 Pantoprazole (Protonix Iv) 40 mg BID@0600,1800 IV Last administered on 05/11/18at 05:49; Admin Dose 40 MG; Start 05/09/18 at 21:30 Dextrose 1,000 ml @ 80 mls/hr [id number] IV Last administered on 05/10/18at 23:13; Admin Dose 80 MLS/HR; Start 05/09/18 at 21:30 Ondansetron HCl (Zofran Inj) 4 mg PACU ORDER PRN IV NAUSEA/VOMITING; Start 04/18 08/02 at 15:30; Stop 05/11/18 at 19:30 KAYLAH BAXTER MD May 11, 2018 17:06
--- NOTE | 2018-05-11 17:23 | PN ---
Date/Time of Note Date/Time of Note DATE: 05/11/18 TIME: 17:06 Assessment/Plan VTE Prophylaxis Risk score (from Ns)>0 risk: 4 SCD applied (from [facility]): Yes Pharmacological prophylaxis: NA/contraindicated Pharm contraindication: bleeding Lines/Catheters IV [facility]ter [facility] (from [facility] Saline Lock Urinary Cath still in place: No Assessment/Plan Hospital Course 82 yo female with h/o TAVR, A Fib on Xarelto, CKD II, dementia presents with GI bleeding Acute blood loss anemia: - Colonoscopy today - Hold Xarelto - Transfuse PRBCs and monitor H/H -Continue PPI A Fib, s/p TAVR: - Hold Xarelto for now, decision to continue it post colonoscopy per Dr Gracia - [employer] Dr Garcia consultation appreciated S/p PPM for SSS CKD III: - Stable, monitor creatinine CHF: - Continue lasix -Resume home Coreg and Entresto per cardiology Dementia: - Stable Prophylaxis: SCDs Dispo to home when stable Result Diagram: 05/11/18 0456 05/11/18 0456 Results 24hrs Laboratory Tests Test 05/11/18 04:56 05/11/18 07:53 White Blood Count 7.7 Red Blood Count 3.52 L Hemoglobin 11.7 L Hematocrit 34.7 L Mean Corpuscular Volume 98.6 Mean Corpuscular Hemoglobin 33.2 H Mean Corpuscular Hemoglobin Concent 33.7 Red Cell Distribution Width 15.8 H Platelet Count 195 Mean Platelet Volume 9.5 Immature Granulocytes % 0.500 H Neutrophils % 76.5 Lymphocytes % 10.4 L Monocytes % 10.4 Eosinophils % 1.7 Basophils % 0.5 Nucleated Red Blood Cells % 0.0 Immature Granulocytes # 0.040 H Neutrophils # 5.9 Lymphocytes # 0.8 Monocytes # 0.8 Eosinophils # 0.1 Basophils # 0.0 Nucleated Red Blood Cells # 0.0 Sodium Level 141 Potassium Level 3.4 L Chloride Level 98 # Carbon Dioxide Level 31 Anion Gap 12 Blood Urea Nitrogen 35 H Creatinine 1.69 H Est Glomerular Filtrat Rate mL/min Glucose Level 99 Calcium Level 10.1 Lab Scanned Report BLOOD TRANSFUSION Subjective 24 Hr Interval Summary Gastrointestinal: blood Exam/Review of Systems Exam Vitals Vital Signs Date Temp Pulse Resp B/P (MAP) Pulse Ox O2 O2 Flow FiO2 Time Delivery Rate 05/11/18 60 16:36 2/25/19 20 125/63 99 Room Air 16:25 (83) 05/11/18 2.0 16:15 05/11/18 98.3 15:51 Intake and Output 05/10/18 05/10/18 05/11/18 1515:00 23:00 07:00 IntakeIntake Total 1000 ml 2000 ml OutputOutput Total 5 ml 5 ml BalanceBalance 995 ml 1995 ml Constitutional: alert Respiratory: clear to auscultation Cardiovascular: regular rate and rhythm Gastrointestinal: soft; No distended Musculoskeletal: nl extremities to inspection Results Results 24hrs Laboratory Tests Test 05/11/18 04:56 05/11/18 07:53 White Blood Count 7.7 Red Blood Count 3.52 L Hemoglobin 11.7 L Hematocrit 34.7 L Mean Corpuscular Volume 98.6 Mean Corpuscular Hemoglobin 33.2 H Mean Corpuscular Hemoglobin Concent 33.7 Red Cell Distribution Width 15.8 H Platelet Count 195 Mean Platelet Volume 9.5 Immature Granulocytes % 0.500 H Neutrophils % 76.5 Lymphocytes % 10.4 L Monocytes % 10.4 Eosinophils % 1.7 Basophils % 0.5 Nucleated Red Blood Cells % 0.0 Immature Granulocytes # 0.040 H Neutrophils # 5.9 Lymphocytes # 0.8 Monocytes # 0.8 Eosinophils # 0.1 Basophils # 0.0 Nucleated Red Blood Cells # 0.0 Sodium Level 141 Potassium Level 3.4 L Chloride Level 98 # Carbon Dioxide Level 31 Anion Gap 12 Blood Urea Nitrogen 35 H Creatinine 1.69 H Est Glomerular Filtrat Rate mL/min Glucose Level 99 Calcium Level 10.1 Lab Scanned Report BLOOD TRANSFUSION Medications Medication Current Medications Furosemide (Lasix) 40 mg DAILY PO Last administered on 05/11/18at 16:55; Admin Dose 40 MG; Start 05/10/18 at 09:00 Levothyroxine Sodium (Synthroid) 100 mcg DAILY@06 PO ; Start 05/10/18 at 06:00 IV Flush (NS 3 ml) 3 ml PER PROTOCOL IV ; Start 05/09/18 at 21:30 Pantoprazole (Protonix Iv) 40 mg BID@0600,1800 IV Last administered on 05/11/18at 05:49; Admin Dose 40 MG; Start 05/09/18 at 21:30 Dextrose 1,000 ml @ 80 mls/hr [id number] IV Last administered on 05/10/18at 23:13; Admin Dose 80 MLS/HR; Start 05/09/18 at 21:30 Ondansetron HCl (Zofran Inj) 4 mg PACU ORDER PRN IV NAUSEA/VOMITING; Start 05/11/18 at 15:30; Stop 05/11/18 at 19:30 IZABELA RIVERA May 11, 2018 17:16
[2018-05-11] MEDS ORDERED: POTASSIUM CHLORIDE (SR) 20 MEQ TAB PO STA (18:59)
[2018-05-11] MEDS: SACUBITRIL/VALSARTAN (49mg-51mg) TABLET PO SCH (20:47)
[2018-05-11] MEDS ORDERED: ATORVASTATIN 10 MG TAB PO SCH (21:00)
[2018-05-12] VITALS (8 sets, daily range): BP systolic 93–109; BP diastolic 51–59; PULSE 60; RESP 16–18
[2018-05-12] MEDS: LEVOTHYROXINE 100 MCG TAB PO SCH (06:03)
[2018-05-12] MEDS: PANTOPRAZOLE 40 MG INJ IV SCH (06:03)
[2018-05-12] MEDS: DEXTROSE 5% 1,000 ML IV SCH ×2 (06:03→12:00)
[2018-05-12] MEDS: SACUBITRIL/VALSARTAN (49mg-51mg) TABLET PO SCH (08:44)
[2018-05-12] MEDS ORDERED: SPIRONOLACTONE 25 MG TAB PO SCH (09:00)
--- NOTE | 2018-05-12 09:11 | PAC ---
Date/Time of Note Date/Time of Note DATE: 05/12/18 TIME: 09:11 Post-Anesthesia Notes Post-Anesthesia Note Last documented vital signs Vital Signs Date Temp Pulse Resp B/P (MAP) Pulse Ox O2 O2 Flow FiO2 Time Delivery Rate 05/12/18 60 08:37 05/12/18 98.0 60 18 109/59 96 07:51 (76) 05/11/18 Room Air 16:25 05/11/18 2.0 16:15 Activity: WNL Respiratory function: WNL Cardiovascular function: WNL Mental status: Baseline Pain reasonably controlled: Yes Hydration appropriate: Yes Nausea/Vomiting absent: No MIGUEL PAEZ MD May 12, 2018 09:11
--- NOTE | 2018-05-12 10:39 | CONS ---
Consult Date/Type/Reason Admit Date/Time May 09, 2018 at 20:31 Initial Consult Date 05/11/18 Type of Consultation: xc Requesting Provider: SHIRA ANTOINE MD Date/Time of Note DATE: 05/12/18 TIME: 10:34 Subjective Cardiology follow-up progress note Subjective: Discussed with the staff telemetry was reviewed. Patient remains a demand pacing. No chest pain or pressure no palpitation. Denies PND orthopnea to me Discussed with the family at the bedside who stated the patient has had a dark stool again Objective: General: Thin elderly female acute to be older than stated age in no acute distress HEENT: NC/AT. pupils are equal. round. NECK: NO JVD. no stridor. CV: RRR. systolic murmur; no gallop or rubs. PULM: no wheezing or rhonchi. GI: SOFT, NT, ND, no rebound or guarding Extremity: trace B/L LE edema. no clubbing. neuro: awake and alert, OX2. Psych: calm and pleasant rectal: deferred Review of the old chart showed the patient echocardiogram done September 2017 has shown ejection fraction of 30% with mild to moderate MR with trace AI. Mild MR mild to moderate TR PA pressure was 49 mm mid [place] with biatrial enlargement CXR 05/09/2018 shows Cardiomegaly. No pneumonia or failure. Objective Vitals Vital Signs Date Temp Pulse Resp B/P (MAP) Pulse Ox O2 O2 Flow FiO2 Time Delivery Rate 05/12/18 60 08:37 05/12/18 98.0 18 109/59 96 07:51 (76) 05/11/18 Room Air 16:25 05/11/18 2.0 16:15 Intake and Output 05/11/18 05/11/18 05/12/18 1515:00 23:00 07:00 IntakeIntake Total 1490 ml 1300 ml OutputOutput Total 4 ml BalanceBalance 1486 ml 1300 ml Results/Medications Result Diagram: 05/12/18 0501 05/12/18 0501 Results 24 hrs Laboratory Tests Test 05/12/18 05:01 White Blood Count 6.2 Red Blood Count 3.12 L Hemoglobin 10.2 L Hematocrit 31.0 L Mean Corpuscular Volume 99.4 Mean Corpuscular Hemoglobin 32.7 Mean Corpuscular Hemoglobin Concent 32.9 Red Cell Distribution Width 14.8 H Platelet Count 174 Mean Platelet Volume 9.4 Immature Granulocytes % 0.500 H Neutrophils % 72.7 Lymphocytes % 12.6 L Monocytes % 11.8 H Eosinophils % 2.1 Basophils % 0.3 Nucleated Red Blood Cells % 0.0 Immature Granulocytes # 0.030 Neutrophils # 4.5 Lymphocytes # 0.8 Monocytes # 0.7 Eosinophils # 0.1 Basophils # 0.0 Nucleated Red Blood Cells # 0.0 Sodium Level 136 Potassium Level 4.1 Chloride Level 101 Carbon Dioxide Level 28 Anion Gap 7 Blood Urea Nitrogen 33 H Creatinine 1.55 H Est Glomerular Filtrat Rate mL/min Glucose Level 106 Calcium Level 8.9 Magnesium Level 2.0 Total Bilirubin 0.3 Direct Bilirubin 0.00 Indirect Bilirubin 0.3 Aspartate Amino Transf (AST/SGOT) 28 Alanine Aminotransferase (ALT/SGPT) 22 Alkaline Phosphatase 44 Creatine Kinase 55 B-Type Natriuretic Peptide 5130 H Total Protein 5.6 L Albumin 3.3 Globulin 2.30 Albumin/Globulin Ratio 1.43 Triglycerides Level 85 Cholesterol Level 108 LDL Cholesterol, Calculated 51 HDL Cholesterol 40 Cholesterol/HDL Ratio 2.7 Thyroid Stimulating Hormone (TSH) 4.080 Free Thyroxine 0.94 Digoxin Level < 0.4 L Home Meds Active Scripts Pantoprazole* (Pantoprazole*) 40 Mg Tabec, 40 MG PO DAILY@06 for 30 Days Prov:ESTELLA DRAKE 02/27/15 Furosemide* (Lasix*) 40 Mg Tab, 40 MG PO DAILY for 30 Days, TAB Prov:ESTELLA DRAKE 02/27/15 Reported Medications Apixaban* (Eliquis*) 2.5 Mg Tablet, 2.5 MG PO BID, TAB 02/22/15 Calcium Carbonate ([id number]) 1 Tab Tablet, 1 TAB PO BID, TAB 02/22/15 Atorvastatin Calcium (Atorvastatin Calcium) 10 Mg Tablet, 10 MG PO QHS, #30 TAB 02/22/15 Carvedilol* (Coreg*) 3.125 Mg Tablet, 3.125 MG PO BID, TAB 02/22/15 Levothyroxine Sodium (Levothroid) 100 Mcg Tablet, 100 MCG PO DAILY 02/22/12 Ferrous Sulfate (Iron) 325 Mg Capsr, 325 MG PO TID 02/22/12 Cyanocobalamin (Cyanocobalamin) 1,000 Mcg Tablet, 1000 MCG PO DAILY 02/22/12 Multivitamins/Minerals (Centrum Silver) 1 Tab Tab, 1 TAB PO DAILY 07/04/11 Medications Current Medications Levothyroxine Sodium (Synthroid) 100 mcg DAILY@06 PO Last administered on 05/12/18at 06:03; Admin Dose 100 MCG; Start 05/10/18 at 06:00 IV Flush (NS 3 ml) 3 ml PER PROTOCOL IV ; Start 05/09/18 at 21:30 Pantoprazole (Protonix Iv) 40 mg BID@0600,1800 IV Last administered on 05/12/18 at 06:03; Admin Dose 40 MG; Start 05/09/18 at 21:30 Dextrose 1,000 ml @ 80 mls/hr [id number] IV Last administered on 05/12/18at 06:03; Admin Dose 80 MLS/HR; Start 05/09/18 at 21:30 Atorvastatin Calcium (Lipitor) 10 mg HS PO Last administered on 05/11/18at 20:47; Admin Dose 10 MG; Start 05/11/18 at 21:00 Carvedilol (Coreg) 6.25 mg BID PO Last administered on 05/12/18at 08:45; Admin Dose 6.25 MG; Start 05/11/18 at 21:00 Sacubitril/ Valsartan (Entresto 49 Mg-51 Mg) 1 tab BID PO Last administered on 05/12/18at 08:44; Admin Dose 1 TAB; Start 05/11/18 at 21:00 Spironolactone (Aldactone) 12.5 mg DAILY PO Last administered on 05/12/18at 08:45; Admin Dose 12.5 MG; Start 05/12/18 at 09:00 Furosemide (Lasix) 40 mg Q48H PO ; Start 05/13/18 at 09:00 Assessment/Plan Hospital Course (Demo Recall) 1. Lower GI bleed 2. Severe anemia probably secondary to above 3. History of chronic atrial fibrillation 4. History of severe aortic stenosis status post TAVR 5. Congestive heart failure chronic secondary systolic heart failure and stable 6. Severe cardiomyopathy 7. Sick sinus syndrome status post permanent pacemaker [employer] pacemaker 8. Hypertension 9. Dementia 10. History of CVA Recommendations: GI workup and treatment as per GI. Mukherjee on hold now We will resume her carvedilol and Entresto aldactone to be continued Diuretic will be continued Eliquis to be resumed once / IF GI clearance is given Thank you for his referral. We will continue to follow along with you KAYLAH BAXTER MD [facility] KAYLAH BAXTER MD May 12, 2018 10:39
--- NOTE | 2018-05-12 11:18 | PDOCDIS ---
Discharge Instructions CONDITION [id number] Patient Condition: [id number] Good HOME CARE INSTRUCTIONS: [id number] Diet Instructions: [id number] Reduced Sodium ACTIVITY: [id number] Activity Restrictions: [id number] Slowly Increase Activity FOLLOW UP/APPOINTMENTS Follow-up Plan FOLLOW UP WITH YOUR PCP AND BANK ADVISOR IN 1-2 WEEKS OTHER ORDERS: Other Orders: HOLD ELIQUIS FOR 3 DAYS IZABELA RIVERA May 12, 2018 11:18
--- NOTE | 2018-05-12 15:54 | DS ---
Date/Time of Note Date/Time of Note DATE: 05/12/18 TIME: 15:48 Discharge Summary Admission/Discharge Info Admit Date/Time May 09, 2018 at 20:31 Discharge Date/Time May 12, 2018 at 15:15 Discharge Diagnosis 82 yo female with h/o TAVR, A Fib on Xarelto, CKD II, dementia presents with GI bleeding Acute blood loss anemia secondary to lower GI bleed - Colonoscopy showed internal hemorrhoids as well as Dr. Prabhakar - Hold anticoagulation for 3 days per GI recommendations -Patient told to increase fiber in diet A Fib, s/p TAVR: -Hold anticoagulation for 3 days per GI but will resume -Supervisor [employer] Dr Garcia consultation appreciated S/p PPM for SSS CKD III: - Stable, monitor creatinine CHF: - Continue home meds Mild dementia: -Home health has been arranged Patient Condition: Good Hospital Course Patient is a 82 yo female with h/o TAVR, A Fib on anticoagulation, CKD II, dementia presents with GI bleeding. Patient was seen by GI and colonoscopy revealed internal hemorrhoids and diverticulosis, recommendation was to hold anticoagulation for 3 days. Patient was stable for DC to home with home health, on the day of discharge patient's vitals, labs of exam are stable. Home Meds Active Scripts Pantoprazole* (Pantoprazole*) 40 Mg Tabec, 40 MG PO DAILY@06 for 30 Days Prov:ESTELLA DRAKE 02/27/15 Furosemide* (Lasix*) 40 Mg Tab, 40 MG PO DAILY for 30 Days, TAB Prov:ESTELLA DRAKE 02/27/15 Reported Medications Apixaban* (Eliquis*) 2.5 Mg Tablet, 2.5 MG PO BID, TAB 02/22/15 Calcium Carbonate ([id number]) 1 Tab Tablet, 1 TAB PO BID, TAB 02/22/15 Atorvastatin Calcium (Atorvastatin Calcium) 10 Mg Tablet, 10 MG PO QHS, #30 TAB 02/22/15 Carvedilol* (Coreg*) 3.125 Mg Tablet, 3.125 MG PO BID, TAB 02/22/15 Levothyroxine Sodium (Levothroid) 100 Mcg Tablet, 100 MCG PO DAILY 02/22/12 Ferrous Sulfate (Iron) 325 Mg Capsr, 325 MG PO TID 02/22/12 Cyanocobalamin (Cyanocobalamin) 1,000 Mcg Tablet, 1000 MCG PO DAILY 02/22/12 Multivitamins/Minerals (Centrum Silver) 1 Tab Tab, 1 TAB PO DAILY 07/04/11 Follow-up Plan FOLLOW UP WITH YOUR PCP AND CLERK [employer] IN 1-2 WEEKS Primary Care Provider Fernando Lambert MD Time spent on discharge: > 30 minutes IZABELA RIVERA May 12, 2018 15:54
[2018-05-13] MEDS ORDERED: FUROSEMIDE 40 MG TAB PO SCH (09:00)
== END 2018-05-12 15:15 | disposition home health service (06) | DRG 378 ==
LOC: E/R 16:05 → 6WM 20:31
PROVIDERS: ADMIT Internal Medicine; ATTEND Internal Medicine
PROC: 0DJD8ZZ Inspection of Lower Intestinal Tract, Via Natural or Artificial Opening Endoscopic (ICD-10-PCS; principal; 2018-05-09)
PROC: 30233N1 Transfusion of Nonautologous Red Blood Cells into Peripheral Vein, Percutaneous Approach (ICD-10-PCS; 2018-05-11)
DX: K92.1 Melena (principal); D62 Acute posthemorrhagic anemia; I50.22 Chronic systolic (congestive) heart failure; I42.9 Cardiomyopathy, unspecified; N18.3 Chronic kidney disease, stage 3 (moderate); Z79.01 Long term (current) use of anticoagulants; F03.90 Unspecified dementia, unspecified severity, without behavioral disturbance, psychotic disturbance, mood disturbance, and anxiety; Z95.0 Presence of cardiac pacemaker; J44.9 Chronic obstructive pulmonary disease, unspecified; Z95.2 Presence of prosthetic heart valve; K57.30 Diverticulosis of large intestine without perforation or abscess without bleeding; K64.8 Other hemorrhoids; Z86.73 Personal history of transient ischemic attack (TIA), and cerebral infarction without residual deficits; I25.10 Atherosclerotic heart disease of native coronary artery without angina pectoris; I48.2 Chronic atrial fibrillation; I27.20 Pulmonary hypertension, unspecified; E07.9 Disorder of thyroid, unspecified
CPT/HCPCS: 36415; 36430; 71045; 74176; 80048; 80053; 80061; 80162; 81001; 82270; 82550; 82728; 83036; 83540; 83735; 83880; 84439; 84443; 85025; 85610; 85730; 86850; 86900; 86901; 86920; 97110; 97116; 97162; 97530; C9113; J3480; J7040; J7070; P9016

== ENCOUNTER 2018-05-28 16:45 | Inpatient (IN) | payer MEDICARE, OTHER ==
[~2018-05-28] VITALS: Ht 160 cm; Wt 59.8 kg
--- NOTE | 2018-05-28 17:30 | ERD ---
ER Documentation Chief Complaint Chief Complaint rectal bleeding x 1 week, pale HPI 82-year-old female history of paroxysmal atrial fibrillation on Eliquis, TAVR, congestive heart failure, lower GI bleeding with severe anemia requiring transfusion and recent colonoscopy which revealed internal hemorrhoids and diverticulosis presents the ED complaining of lower GI bleeding. Patient reports ongoing, dark, bloody stools since discharge 05/12/2018. Denies abdominal pain, nausea, vomiting or hematemesis. No chest pain, palpitations or shortness of breath. Generalized weakness but no headache, focal weakness or numbness. No fevers or chills. ROS All systems reviewed and are negative except as per history of present illness. Medications Home Meds Reported Medications Cyanocobalamin (Vitamin B-12) (Vitamin B-12) 1,000 Mcg Tab.subl, 1000 MCG SL DAILY 05/28/18 Multivitamin/Iron/Folic Acid (Centrum Adults Tablet) 1 Each Tablet, 1 EACH PO DAILY, TAB 05/28/18 Calcium Carbonate* (Calcium Carbonate*) 600 MG Ca Tab, 600 MG PO BID, TAB 05/28/18 Omeprazole* (Omeprazole*) 40 Mg Capsule.dr, 40 MG PO DAILY, #30 CAP 05/28/18 Atorvastatin Calcium (Atorvastatin Calcium) 10 Mg Tablet, 10 MG PO QHS, #30 TAB 05/28/18 Apixaban* (Eliquis*) 2.5 Mg Tablet, 2.5 MG PO DAILY, TAB 05/28/18 Sacubitril/Valsartan (Entresto 49 mg-51 mg Tablet) 1 Each Tablet, 1 EACH PO DAILY, TAB 05/28/18 Carvedilol* (Carvedilol*) 6.25 Mg Tablet, 6.25 MG PO DAILY, #60 TAB 05/28/18 Furosemide* (Furosemide*) 40 Mg Tablet, 40 MG PO DAILY, TAB 05/28/18 Spironolactone* (Aldactone*) 25 Mg Tablet, 25 MG PO DAILY, #30 TAB 05/28/18 Levothyroxine Sodium* (Levothyroxine Sodium*) 100 Mcg Tablet, 100 MCG PO BEFORE BREAKFAST, #30 TAB 05/28/18 Discontinued Reported Medications Apixaban* (Eliquis*) 2.5 Mg Tablet, 2.5 MG PO BID, TAB 02/22/15 Calcium Carbonate ([id number]) 1 Tab Tablet, 1 TAB PO BID, TAB 02/22/15 Atorvastatin Calcium (Atorvastatin Calcium) 10 Mg Tablet, 10 MG PO QHS, #30 TAB 02/22/15 Carvedilol* (Coreg*) 3.125 Mg Tablet, 3.125 MG PO BID, TAB 02/22/15 Levothyroxine Sodium (Levothroid) 100 Mcg Tablet, 100 MCG PO DAILY 02/22/12 Ferrous Sulfate (Iron) 325 Mg Capsr, 325 MG PO TID 02/22/12 Cyanocobalamin (Cyanocobalamin) 1,000 Mcg Tablet, 1000 MCG PO DAILY 02/22/12 Multivitamins/Minerals (Centrum Silver) 1 Tab Tab, 1 TAB PO DAILY 07/04/11 Discontinued Scripts Pantoprazole* (Pantoprazole*) 40 Mg Tabec, 40 MG PO DAILY@06 for 30 Days Prov:ESTELLA DRAKE 02/27/15 Furosemide* (Lasix*) 40 Mg Tab, 40 MG PO DAILY for 30 Days, TAB Prov:ESTELLA DRAKE 02/27/15 Allergies Allergies: Coded Allergies: No Known Allergy (Unverified , 05/28/18) PMhx/Soc Reviewed in chart. As per HPI. Lives with family History of Surgery: Yes (pacemaker, TAVR, gallbladder remove) Anesthesia Reaction: No Hx Neurological Disorder: Yes (CVA with no neuro deficits) Hx Respiratory Disorders: Yes (COPD) Hx Cardiac Disorders: Yes (HTN, hyperlipidemia, CHF, pulmonary edema) Hx Psychiatric Problems: Yes Hx Miscellaneous Medical Probl: Yes (internal hemorrhoids) Hx Alcohol Use: No Hx Substance Use: No Hx Tobacco Use: No Smoking Status: Never smoker FmHx No cancer or stroke Physical Exam Vitals Vital Signs Date Temp Pulse Resp B/P (MAP) Pulse Ox O2 O2 Flow FiO2 Time Delivery Rate 05/28/18 70 19 96/51 (66) 96 Room Air 17:59 05/28/18 98.0 60 18 87/47 (60) 100 16:53 Physical Exam Const: Mild distress Head: Atraumatic Eyes: Pale Conjunctiva ENT: Normal External Ears, Nose and Mouth. Mucous membranes are pale. Neck: Full range of motion. No meningismus. No JVD. Resp: Breath sounds are equal and clear to auscultation bilaterally Cardio: Regular rate and rhythm, 2/6 murmur. Abd: Soft, non tender, non distended. Normal bowel sounds. Rectal exam: Normal tone. Maroon stool Skin: Pale. No petechiae or rashes Back: No midline or flank tenderness Ext: No cyanosis, or edema Neur: Awake and alert Psych: Normal Mood and Affect Result Diagram: 05/31/18 1804 05/31/18 0517 Results 24 hrs Laboratory Tests Test 05/28/18 17:25 05/28/18 17:37 B-Type Natriuretic Peptide 60040 PG/ML Free Thyroxine 2.01 ng/dl White Blood Count 8.5 10^3/ul Red Blood Count 1.79 10^6/ul Hemoglobin 5.9 g/dl Hematocrit 19.7 % Mean Corpuscular Volume 110.1 fl Mean Corpuscular Hemoglobin 33.0 pg Mean Corpuscular Hemoglobin Concent 29.9 g/dl Red Cell Distribution Width 15.1 % Platelet Count 161 10^3/UL Mean Platelet Volume 9.8 fl Immature Granulocytes % 0.500 % Neutrophils % % Segmented Neutrophils % (Manual) 79 % Lymphocytes % % Lymphocytes % (Manual) 11 % Reactive Lymphocytes % (Manual) 1 % Monocytes % % Monocytes % (Manual) 9 % Eosinophils % % Basophils % % Nucleated Red Blood Cells % 0.4 /100WBC Immature Granulocytes # 0.040 10^3/ul Neutrophils # 10^3/ul Lymphocytes (Manual) 0.9 10^3/ul Lymphocytes # 10^3/ul Reactive Lymphocytes # 0.0 10^3/ul Monocytes # 10^3/ul Monocytes # (Manual) 0.7 10^3/ul Eosinophils # 10^3/ul Basophils # 10^3/ul Nucleated Red Blood Cells # 10^3/ul Platelet Estimate NORMAL Giant Platelets 1 % Polychromasia 3+ Hypochromasia 1+ Anisocytosis 1+ Microcytosis 1+ Prothrombin Time 14.6 Sec Prothrombin Time Ratio 1.1 INR International Normalized Ratio 1.13 Activated Partial Thromboplast Time 24.0 Sec Sodium Level 138 mmol/L Potassium Level 4.4 mmol/L Chloride Level 104 mmol/L Carbon Dioxide Level 20 mmol/L Anion Gap 14 Blood Urea Nitrogen 59 mg/dl Creatinine 2.30 mg/dl Est Glomerular Filtrat Rate mL/min mL/min Glucose Level 133 mg/dl Calcium Level 9.3 mg/dl Total Bilirubin 0.3 mg/dl Direct Bilirubin 0.00 mg/dl Indirect Bilirubin 0.3 mg/dl Aspartate Amino Transf (AST/SGOT) 25 IU/L Alanine Aminotransferase (ALT/SGPT) 25 IU/L Alkaline Phosphatase 43 IU/L Troponin I 0.091 ng/ml Total Protein 5.8 g/dl Albumin 3.5 g/dl Globulin 2.30 g/dl Albumin/Globulin Ratio 1.52 Current Medications Medications Dose Sig/Arvin Start Time Status Last (Trade) Ordered Route PRN Stop Time Admin Dose Reason Admin IV Flush 3 ml PER 05/28/18 (NS 3 ml) PROTOCOL IV 19:00 Ondansetron 4 mg Q6H PRN 05/28/18 HCl (Zofran IV 19:00 Inj) NAUSEA/VOMITI NG 650 mg Q6H PRN 05/28/18 Acetaminophen PO .PAIN 1-3 19:00 (Tylenol OR TEMP Tab) 1 tab Q6H PRN 05/28/18 Acetaminophen PO .MOD PAIN 19:00 / 4-6 Hydrocodone Bitart ([place] (5/325)) Morphine 2 mg Q4H PRN 05/28/18 Sulfate IV .SEVERE 19:00 (morphine) PAIN 7-10 Docusate 100 mg Q12H PRN 05/28/18 Sodium PO 19:00 (Colace) .CONSTIPATION Magnesium 30 ml DAILY PRN 05/28/18 Hydroxide PO 19:00 (Milk Of Mag) .CONSTIPATION Lorazepam 0.5 mg Q6H PRN 05/28/18 (Ativan) IV ANXIETY 19:00 Albuterol/ 3 ml Q4H RESP 05/28/18 Ipratropium THERAPY PRN 19:00 (Duoneb) HHN SHORTNESS OF BREATH Hydralazine 10 mg Q6H PRN 05/28/18 HCl IV ELEVATED 19:00 (Apresoline) BLOOD PRESSURE 1 tab Q5M PRN 05/28/18 Nitroglycerin SL ANGINA 19:00 (Nitroglyceri n (Sl Tab) 0.4 Mg) Procedures/MDM DOCUMENTS REVIEWED: ED nurse, prior ED, prior records EKG: Time: 17:42. Atrial flutter. Ventricular rate 60. Wide QRS: 154 ms. Left axis deviation. Lateral and inferior Q waves. No acute ST elevation or depression. MY Interpretation IMAGING: Cardiac silhouette is normal. The costophrenic angles are clear. No effusions or infiltrates. Cardiac rhythm device with wires intact. Prosthetic aortic valve. My interpretation. CONSENT FOR BLOOD/BLOOD PRODUCTS TRANSFUSION: Risks and benefits including but not limited to bacterial sepsis, viral transmission of HIV, hepatitis, malaria, variant Creutzfeldt-Didier disease, hemolytic reactions, anaphylactic reactions, fluid overload and transfusion related acute lung injury explained and understood by patient and daughter who was at the bedside. Informed consent obtained. CRITICAL CARE TIME: Due to the high probability of sudden clinically significant hemodynamic and cardiovascular deterioration, this patient with critical anemia secondary to GI bleeding required multiple, frequent reevaluations of vital signs and response to therapy including emergent transfusion of PRBCs. Additional critical care time was spent in extensive review of prior medical records, interpretation of relevant clinical data and arranging for admission and ongoing care. TOTAL CRITICAL CARE TIME: 35 minutes not including other separately reportable procedures. MEDICAL DECISION MAKIN-year-old female history of paroxysmal atrial fibrill ation on Eliquis, TAVR, congestive heart failure, lower GI bleeding with severe anemia requiring transfusion and recent colonoscopy which revealed internal hemorrhoids and diverticulosis presents the ED complaining of lower GI bleeding. CBC reveals critical anemia with H/H 5.9/19.7 but no leukocytosis or thrombocytopenia. Chemistry significant for elevated BUN/creatinine of 59/2.38 which is increased from 33/1.55 on 05/12/18 but no electrolyte abnormalities or hyperglycemia. Patient presents with severe anemia secondary to GI bleeding which is secondary to or exacerbated by anticoagulation on apixaban. Recent workup revealed internal hemorrhoids and diverticulosis. Hemodynamically stable . After informed consent was obtained transfusion initiated with PRBCs. Admit to telemetry for GI consultation, further evaluation and management. PATIENT CARE TRANSITIONED: Time: 18:12, Dr. Lynch. Counseled patient and family regarding diagnosis, diagnostic results and plan for admission. Departure Diagnosis: Primary Impression: Lower GI bleed Additional Impressions: Severe anemia Atrial flutter Atrial flutter type: unspecified Qualified Codes: I48.92 - Unspecified atrial flutter Anticoagulated by anticoagulation treatment S/P TAVR (transcatheter aortic valve replacement) Condition: Serious ABELINO ROB MD May 28, 2018 17:30
[2018-05-28] MEDS ORDERED: FURO40TA4 PO (18:19)
[2018-05-28] MEDS ORDERED: LEVO100T8 PO (18:19)
[2018-05-28] MEDS ORDERED: SPIR25TA PO (18:19)
[2018-05-28] MEDS ORDERED: CARV6.2579 PO (18:20)
[2018-05-28] MEDS ORDERED: SACU1TAB7 PO (18:20)
[2018-05-28] MEDS ORDERED: ATOR10TA65 PO (18:21)
[2018-05-28] MEDS ORDERED: APIX2.5T PO (18:21)
[2018-05-28] MEDS ORDERED: OMEP40CA6 PO (18:21)
[2018-05-28] MEDS ORDERED: CALC600T24 PO (18:22)
[2018-05-28] MEDS ORDERED: MULT-902 PO (18:23)
[2018-05-28] MEDS ORDERED: [UNRECOGNIZED DRUG - CODE] SL (18:24)
[2018-05-28] MEDS ORDERED: MAGNESIUM HYDROXIDE 30ML CUP PO PRN (19:00)
[2018-05-28] MEDS ORDERED: LORAZEPAM 2 MG INJ IV PRN (19:00)
[2018-05-28] MEDS ORDERED: ALBUTEROL/IPRATROPIUM (NEB) 3 ML AMP HHN PRN (19:00)
[2018-05-28] MEDS ORDERED: HYDROCODONE/APAP (5/325) TAB PO PRN (19:00)
[2018-05-28] MEDS ORDERED: ONDANSETRON 4 MG INJ IV PRN ×2 (19:00→19:30)
[2018-05-28] MEDS ORDERED: NITROGLYCERIN (SL) 0.4 MG TAB SL PRN (19:00)
[2018-05-28] MEDS ORDERED: NACL 0.9% 3 ML SYG IV SCH (19:00)
[2018-05-28] MEDS ORDERED: hydrALAzine 20 MG INJ IV PRN (19:00)
[2018-05-28] MEDS ORDERED: morphine 2 MG INJ IV PRN (19:00)
[2018-05-28] MEDS ORDERED: ACETAMINOPHEN 325 MG TAB PO PRN (19:30)
[2018-05-28] MEDS ORDERED: SOD CHLORIDE 0.45% 1,000 ML IV SCH (20:00)
--- NOTE | 2018-05-28 20:30 | HP ---
DATE OF ADMISSION: 05/28/2018 CHIEF COMPLAINT: Rectal bleeding x1 week, weakness. HISTORY OF PRESENT ILLNESS: An 82-year-old female with past medical history of paroxysmal AFib on El iquis, TAVR valve replacement, CHF, lower GI bleeding with severe anemia requiring blood transfusion last month when she was hospitalized here, and recent colonoscopy with internal hemorrhoids and diver ticulosis, who comes in with GI bleeding. The patient states that symptoms have been going on for e last 1 to 2 weeks, pretty much since she was discharged on 05/12/2018. She says she has been takin g her Eliquis at half the dose as recommended by her doctor. This was initially held when she was di scharged on 05/12/2018. She denies any upper GI bleeding. She denies any chest pain but she has been having generalized weak ness symptoms. She has noticed dark stool, not bright. No fevers or chills. No shortness of breath . No nausea or vomiting. No hemoptysis. When she came in today, she was found with a hemoglobin of 5.9 and the ER doctor ordered for 2 units of PRBC transfusion and that is currently being set up for patient to get right now, and a call was m brandon out to the GI doctor to come see the patient which will occur later. Again, patient was recently hospitalized here from 05/09 to 05/12/2018. At that time, she had acute blood loss secondary to lower GI bleeding and had a colonoscopy as mentioned above at that time. PAST MEDICAL HISTORY: As stated above. ALLERGIES: NO KNOWN DRUG ALLERGIES. HOME MEDICATIONS: 1. Eliquis 2.5 mg daily. 2. Atorvastatin 10 mg at bedtime. 3. Coreg 6.25 mg daily. 4. Entresto 49/51 daily. 5. Aldactone 25 mg daily. 6. Calcium carbonate 600 mg b.i.d. 7. Lasix 40 mg daily. 8. Omeprazole 40 mg daily. 9. Levothyroxine 100 mcg every morning. 10. Vitamin B12 1000 mcg sublingual daily. 11. Multivitamin 1 tab daily. PAST SURGICAL HISTORY: Again, TAVR. She also had a pacemaker placed in the past and gallbladder rem oval in the past. FAMILY HISTORY: Noncontributory. SOCIAL HISTORY: Negative for smoking, drinking or IV drug abuse. PHYSICAL EXAMINATION: VITAL SIGNS: Today, T-max 98.0, pulse 60, respirations 18, blood pressure 87/47, satting 100% on rickey m air. GENERAL: The patient lying in bed. Family members at the bedside. The patient is pale but answerin g questions and alert. HEENT: Pupils equal, round, reactive to light. Extraocular muscles intact. NECK: Supple. No thyromegaly. LUNGS: Clear to auscultation bilaterally. CARDIOVASCULAR: S1 and S2 heard. No rubs or gallops. ABDOMEN: Soft, nontender, nondistended. Normal bowel sounds. No rebound or guarding. MUSCULOSKELETAL: No lower extremity edema bilaterally. NEUROLOGIC: No focal deficits. LABORATORY DATA: Sodium 138, potassium 4.4, chloride 104, CO2 20, BUN of 59, creatinine 2.30, glucos e 133. Again, WBC 8.5, hemoglobin 5.9, hematocrit 19.7, platelets of 161. Coags appear to be normal . IMAGING STUDIES: There are no new imaging studies performed. ASSESSMENT AND PLAN: An 82-year-old female coming in with history of paroxysmal atrial fibrillation on Eliquis, transcatheter aortic valve replacement, congestive heart failure, recent lower gastrointe stinal bleeding 2 weeks ago, hospitalized for that, status post colonoscopy with internal hemorrhoids and diverticulosis, presents with continued lower gastrointestinal bleeding and anemia, hemoglobin 5 .9. 1. Anemia, lower gastrointestinal bleeding. Again, hemoglobin 5.9. Admit the patient. Get GI cons ult. Give her 2 units of PRBC transfusion. Monitor CBC in the morning. Hold all anticoagulants inc luding Eliquis. Get PT, OT and speech therapy consults. Consider checking TSH, A1c and lipid panel. We will discuss with GI team about whether to perform EGD or colonoscopy or both at this time. Con tinue Protonix. 2. History of congestive heart failure. BNP on last admission was 5130. Continue to monitor for no w. Continue current cardiac medications cautiously. 3. High cholesterol. Continue statin. Follow up lipid panel. 4. History of transcatheter aortic valve replacement. Again, holding Eliquis for now given likely g astrointestinal bleed. Continue to monitor heart rate. Carefully continue current cardiac medicatio ns. Otherwise, consider cardiology consult. 5. History of paroxysmal atrial fibrillation. Again, continue to monitor heart rate on telemetry. Holding off on anticoagulation given her gastrointestinal bleeding presently right now. 6. Thyroid issues. Continue current thyroid medications. Follow up thyroid panel. 7. Gastrointestinal prophylaxis. Again, continue on PPI IV b.i.d. 8. Deep venous thrombosis prophylaxis. SCDs. Dictated By: LES HOLLOWAY/SHAYNA Conf#: [id number] DID#: [id number]
[2018-05-28 21:15] VITALS: PULSE 60
[2018-05-28 22:38] VITALS: Ht 160 cm; Wt 59.8 kg
[2018-05-28] MEDS: PANTOPRAZOLE 40 MG INJ IV SCH (23:24)
[2018-05-28] MEDS: ATORVASTATIN 10 MG TAB PO SCH (23:24)
[2018-05-28] MEDS: CALCIUM CARBONATE 1.25 GM TAB PO SCH (23:24)
[2018-05-29] VITALS (22 sets, daily range): BP systolic 107–155; BP diastolic 57–83; PULSE 57–79; RESP 13–27
[2018-05-29] MEDS ORDERED: PANTOPRAZOLE (EC) 40 MG TAB PO SCH (06:00)
[2018-05-29] MEDS: PANTOPRAZOLE 40 MG INJ IV SCH ×2 (06:01→20:53)
[2018-05-29] MEDS: LEVOTHYROXINE 100 MCG TAB PO SCH (06:41)
[2018-05-29] MEDS: CYANOCOBALAMIN 500 MCG TAB PO SCH (09:00)
[2018-05-29] MEDS: CALCIUM CARBONATE 1.25 GM TAB PO SCH ×2 (09:00→21:00)
[2018-05-29] MEDS: MULTIVITAMINS/MINERALS TAB PO SCH (09:00)
--- NOTE | 2018-05-29 10:34 | PN ---
Date/Time of Note Date/Time of Note DATE: 05/29/18 TIME: 10:27 Assessment/Plan VTE Prophylaxis SCD applied (from Nsg): Yes Pharmacological prophylaxis: NA/contraindicated Pharm contraindication: bleeding Lines/Catheters IV Catheter Type (from Nrsg): Peripheral IV Assessment/Plan Hospital Course S: Patient received PRBC transfusion yesterday. No acute events overnight, no present signs of lower GI bleeding. O: VS - see below PHYSICAL EXAMINATION: GENERAL: lying in bed, NAD HEENT: Pupils equal, round, reactive to light. Extraocular muscles intact. NECK: Supple. No thyromegaly. LUNGS: Clear to auscultation bilaterally. CARDIOVASCULAR: S1 and S2 heard. No rubs or gallops. ABDOMEN: Soft, nontender, nondistended. Normal bowel sounds. No rebound or guarding. MUSCULOSKELETAL: No lower extremity edema bilaterally. NEUROLOGIC: No focal deficits. ASSESSMENT AND PLAN: 82-year-old female coming in with history of paroxysmal atrial fibrillation on Eliquis, transcatheter aortic valve replacement, congestive heart failure, recent lower gastrointestinal bleeding 2 weeks ago, hospitalized for that, status post colonoscopy with internal hemorrhoids and diverticulosis, presents with continued lower gastrointestinal bleeding and anemia, hemoglobin 5.9. 1. Anemia, lower gastrointestinal bleeding-on presentation the hemoglobin 5.9. -Status post 2 units of PRBC transfusion yesterday -hemoglobin improved. - Monitor CBC every morning and signs for further lower GI bleeding -Continue to hold all anticoagulants including Eliquis. -Follow-up GI team recommendations (particularly regarding whether to re- scope patient or not?), and PT, OT and speech therapy consults. - Continue Protonix IV BID for now 2. History of congestive heart failure. BNP 10,000 this admission. - Continue to monitor for now. - Continue current cardiac medications cautiously. 3. High cholesterol. - Continue statin. -Follow up lipid panel. 4. History of transcatheter aortic valve replacement (TAVR). - Again, holding Eliquis for now given likely gastrointestinal bleed. - Continue to monitor heart rate. - Carefully continue current cardiac medications, consider cardiology con sult. 5. History of paroxysmal atrial fibrillation. Presently rate controlled - again, continue to monitor heart rate on telemetry. -Again, holding off on anticoagulation given her gastrointestinal bleeding presently right now. 6. Thyroid issues. - Continue current thyroid medications. - Follow up thyroid panel. 7. Gastrointestinal prophylaxis. Again, continue on PPI IV b.i.d. 8. Deep venous thrombosis prophylaxis. SCDs. Result Diagram: 05/29/18 0509 05/29/18 0509 Results 24hrs Laboratory Tests Test 05/28/18 17:25 05/28/18 17:37 05/29/18 05:09 05/29/18 05:20 B-Type 64924 H Natriuretic Peptide Free Thyroxine 2.01 H White Blood Count 8.5 # 6.7 # Red Blood Count 1.79 #L 2.83 #L Hemoglobin 5.9 #*L 8.8 #L Hematocrit 19.7 #L 27.0 #L Mean Corpuscular 110.1 H 95.4 Volume Mean Corpuscular 33.0 31.1 Hemoglobin Mean Corpuscular 29.9 L 32.6 Hemoglobin Concen t Red Cell 15.1 H 19.3 #H Distribution Width Platelet Count 161 114 #L Mean Platelet 9.8 9.4 Volume Immature 0.500 H 0.400 Granulocytes % Neutrophils % 77.8 H Segmented 79 H Neutrophils % (Manual) Lymphocytes % 12.4 L Lymphocytes % 11 L (Manual) Reactive 1 H Lymphocytes % (Manual) Monocytes % 8.8 Monocytes % 9 (Manual) Eosinophils % 0.3 Basophils % 0.3 Nucleated Red 0.4 H 0.3 H Blood Cells % Immature 0.040 H 0.030 Granulocytes # Neutrophils # 5.2 Lymphocytes 0.9 (Manual) Lymphocytes # 0.8 Reactive 0.0 Lymphocytes # Monocytes # 0.6 Monocytes # 0.7 (Manual) Eosinophils # 0.0 Basophils # 0.0 Nucleated Red 0.0 Blood Cells # Platelet Estimate NORMAL Giant Platelets 1 H Polychromasia 3+ Hypochromasia 1+ Anisocytosis 1+ Microcytosis 1+ Prothrombin Time 14.6 Prothrombin Time 1.1 Ratio INR International 1.13 Normalized Ratio Activated 24.0 Partial Thrombopl ast Time Sodium Level 138 138 Potassium Level 4.4 4.2 Chloride Level 104 104 Carbon Dioxide 20 L 25 Level Anion Gap 14 H 9 # Blood Urea 59 H 57 H Nitrogen Creatinine 2.30 H 2.02 H Est Glomerular Filtrat Rate mL/min Glucose Level 133 78 # Calcium Level 9.3 8.7 Total Bilirubin 0.3 Direct Bilirubin 0.00 Indirect 0.3 Bilirubin Aspartate Amino 25 Transf (AST/SGOT) Alanine 25 Aminotransferase (ALT/SGPT) Alkaline 43 Phosphatase Troponin I 0.091 Total Protein 5.8 L Albumin 3.5 Globulin 2.30 Albumin/Globulin 1.52 Ratio Hemoglobin A1c 5.1 Phosphorus Level 5.1 H Magnesium Level 2.4 Triglycerides 58 Level Cholesterol Level 71 L LDL Cholesterol, 26 Calculated HDL Cholesterol 33 Cholesterol/HDL 2.1 Ratio Thyroid 0.838 Stimulating Hormone (TSH) Lab Scanned BLOOD TRANSFUSIO Report N Exam/Review of Systems Exam Vitals Vital Signs Date Temp Pulse Resp B/P (MAP) Pulse Ox O2 O2 Flow FiO2 Time Delivery Rate 05/29/18 60 08:07 05/29/18 97.7 16 107/57 97 07:34 (74) 05/29/18 Nasal 2.0 03:41 Cannula Intake and Output 05/28/18 05/28/18 05/29/18 1515:00 23:00 07:00 IntakeIntake Total 310 ml BalanceBalance 310 ml Results Results 24hrs Laboratory Tests Test 05/28/18 17:25 05/28/18 17:37 05/29/18 05:09 05/29/18 05:20 B-Type 84459 H Natriuretic Peptide Free Thyroxine 2.01 H White Blood Count 8.5 # 6.7 # Red Blood Count 1.79 #L 2.83 #L Hemoglobin 5.9 #*L 8.8 #L Hematocrit 19.7 #L 27.0 #L Mean Corpuscular 110.1 H 95.4 Volume Mean Corpuscular 33.0 31.1 Hemoglobin Mean Corpuscular 29.9 L 32.6 Hemoglobin Concen t Red Cell 15.1 H 19.3 #H Distribution Width Platelet Count 161 114 #L Mean Platelet 9.8 9.4 Volume Immature 0.500 H 0.400 Granulocytes % Neutrophils % 77.8 H Segmented 79 H Neutrophils % (Manual) Lymphocytes % 12.4 L Lymphocytes % 11 L (Manual) Reactive 1 H Lymphocytes % (Manual) Monocytes % 8.8 Monocytes % 9 (Manual) Eosinophils % 0.3 Basophils % 0.3 Nucleated Red 0.4 H 0.3 H Blood Cells % Immature 0.040 H 0.030 Granulocytes # Neutrophils # 5.2 Lymphocytes 0.9 (Manual) Lymphocytes # 0.8 Reactive 0.0 Lymphocytes # Monocytes # 0.6 Monocytes # 0.7 (Manual) Eosinophils # 0.0 Basophils # 0.0 Nucleated Red 0.0 Blood Cells # Platelet Estimate NORMAL Giant Platelets 1 H Polychromasia 3+ Hypochromasia 1+ Anisocytosis 1+ Microcytosis 1+ Prothrombin Time 14.6 Prothrombin Time 1.1 Ratio INR International 1.13 Normalized Ratio Activated 24.0 Partial Thrombopl ast Time Sodium Level 138 138 Potassium Level 4.4 4.2 Chloride Level 104 104 Carbon Dioxide 20 L 25 Level Anion Gap 14 H 9 # Blood Urea 59 H 57 H Nitrogen Creatinine 2.30 H 2.02 H Est Glomerular Filtrat Rate mL/min Glucose Level 133 78 # Calcium Level 9.3 8.7 Total Bilirubin 0.3 Direct Bilirubin 0.00 Indirect 0.3 Bilirubin Aspartate Amino 25 Transf (AST/SGOT) Alanine 25 Aminotransferase (ALT/SGPT) Alkaline 43 Phosphatase Troponin I 0.091 Total Protein 5.8 L Albumin 3.5 Globulin 2.30 Albumin/Globulin 1.52 Ratio Hemoglobin A1c 5.1 Phosphorus Level 5.1 H Magnesium Level 2.4 Triglycerides 58 Level Cholesterol Level 71 L LDL Cholesterol, 26 Calculated HDL Cholesterol 33 Cholesterol/HDL 2.1 Ratio Thyroid 0.838 Stimulating Hormone (TSH) Lab Scanned BLOOD TRANSFUSIO Report N Medications Medication Current Medications IV Flush (NS 3 ml) 3 ml PER PROTOCOL IV ; Start 05/28/18 at 19:00 Ondansetron HCl (Zofran Inj) 4 mg Q6H PRN IV NAUSEA/VOMITING; Start 05/28/18 at 19:00 Acetaminophen (Tylenol Tab) 650 mg Q6H PRN PO .PAIN 1-3 OR TEMP; Start 05/28/18 at 19:00 Acetaminophen/ Hydrocodone Bitart (Poneto (5/325)) 1 tab Q6H PRN PO .MOD PAIN 4- 6; Start 05/28/18 at 19:00 Morphine Sulfate (morphine) 2 mg Q4H PRN IV .SEVERE PAIN 7-10; Start 05/28/18 at 19:00 Docusate Sodium (Colace) 100 mg Q12H PRN PO .CONSTIPATION; Start 05/28/18 at 19:00 Magnesium Hydroxide (Milk Of Mag) 30 ml DAILY PRN PO .CONSTIPATION; Start 05/28/18 at 19:00 Lorazepam (Ativan) 0.5 mg Q6H PRN IV ANXIETY; Start 05/28/18 at 19:00 Albuterol/ Ipratropium (Duoneb) 3 ml Q4H RESP THERAPY PRN HHN SHORTNESS OF BREATH; Start 05/28/18 at 19:00 Hydralazine HCl (Apresoline) 10 mg Q6H PRN IV ELEVATED BLOOD PRESSURE; Start 05/28/18 at 19:00 Nitroglycerin (Nitroglycerin (Sl Tab) 0.4 Mg) 1 tab Q5M PRN SL ANGINA; Start 05/28/18 at 19:00 Atorvastatin Calcium (Lipitor) 10 mg QHS PO Last administered on 05/28/18at 23:24; Admin Dose 10 MG; Start 05/28/18 at 21:00 Carvedilol (Coreg) 6.25 mg DAILY PO ; Start 05/29/18 at 09:00 Levothyroxine Sodium (Synthroid) 100 mcg BEFORE BREAKFAST PO Last administered on 05/29/18at 06:41; Admin Dose 100 MCG; Start 05/29/18 at 07:00 Calcium Carbonate (Oyster Shell Calcium) 1.25 gm BID PO Last administered on 05/28/18at 23:24; Admin Dose 1.25 GM; Start 05/28/18 at 21:00 Cyanocobalamin (Vitamin B12) 1,000 mcg DAILY PO ; Start 05/29/18 at 09:00 Multivitamins/ Minerals (Theragran-M) 1 tab DAILY PO ; Start 05/29/18 at 09:00 Ondansetron HCl (Zofran Inj) 4 mg ER BRIDGE PRN IV NAUSEA/VOMITING; Start 05/28/18 at 19:30; Stop 05/29/18 at 19:29 Acetaminophen (Tylenol Tab) 650 mg ER BRIDGE PRN PO .MILD PAIN 1-3 OR TEMP; Start 05/28/18 at 19:30; Stop 05/29/18 at 19:29 Pantoprazole (Protonix Iv) 40 mg BID@06,18 IV Last administered on 05/29/18at 06:01; Admin Dose 40 MG; Start 05/28/18 at 19:30 LES SAUNDERS May 29, 2018 10:34
--- NOTE | 2018-05-29 13:03 | PREAC ---
Date/Time of Note Date/Time of Note DATE: 05/29/18 TIME: 13:01 Anesthesia Eval and Record Evaluation Time Pre-Procedure Interview DATE: 05/29/18 TIME: 13:01 Age 82 Sex female NPO: 8 hrs Preoperative diagnosis GI Bleed Planned procedure EGD Past Medical History Past Medical History: Includes Cardio: Dyslipidemia, Arrythmia (Proxysmal A-Fib), PPM/AICD, CHF Heme: Anemia Surgery & Anesthesia Issues No known issue Meds Anticoagulation: No Beta Jacob within 24 hr: No Reason Beta Jacob not given: Pt. not on B-Jacob Reported Medications Cyanocobalamin (Vitamin B-12) (Vitamin B-12) 1,000 Mcg Tab.subl, 1000 MCG SL DAILY 05/28/18 Multivitamin/Iron/Folic Acid (Centrum Adults Tablet) 1 Each Tablet, 1 EACH PO DAILY, TAB 05/28/18 Calcium Carbonate* (Calcium Carbonate*) 600 MG Ca Tab, 600 MG PO BID, TAB 05/28/18 Omeprazole* (Omeprazole*) 40 Mg Capsule.dr, 40 MG PO DAILY, #30 CAP 05/28/18 Atorvastatin Calcium (Atorvastatin Calcium) 10 Mg Tablet, 10 MG PO QHS, #30 TAB 05/28/18 Apixaban* (Eliquis*) 2.5 Mg Tablet, 2.5 MG PO DAILY, TAB 05/28/18 Sacubitril/Valsartan (Entresto 49 mg-51 mg Tablet) 1 Each Tablet, 1 EACH PO DAILY, TAB 05/28/18 Carvedilol* (Carvedilol*) 6.25 Mg Tablet, 6.25 MG PO DAILY, #60 TAB 05/28/18 Furosemide* (Furosemide*) 40 Mg Tablet, 40 MG PO DAILY, TAB 05/28/18 Spironolactone* (Aldactone*) 25 Mg Tablet, 25 MG PO DAILY, #30 TAB 05/28/18 Levothyroxine Sodium* (Levothyroxine Sodium*) 100 Mcg Tablet, 100 MCG PO BEFORE BREAKFAST, #30 TAB 05/28/18 Discontinued Reported Medications Apixaban* (Eliquis*) 2.5 Mg Tablet, 2.5 MG PO BID, TAB 02/22/15 Calcium Carbonate ([id number]) 1 Tab Tablet, 1 TAB PO BID, TAB 12/9/15 Atorvastatin Calcium (Atorvastatin Calcium) 10 Mg Tablet, 10 MG PO QHS, #30 TAB 02/22/15 Carvedilol* (Coreg*) 3.125 Mg Tablet, 3.125 MG PO BID, TAB 02/22/15 Levothyroxine Sodium (Levothroid) 100 Mcg Tablet, 100 MCG PO DAILY 02/22/12 Ferrous Sulfate (Iron) 325 Mg Capsr, 325 MG PO TID 02/22/12 Cyanocobalamin (Cyanocobalamin) 1,000 Mcg Tablet, 1000 MCG PO DAILY 02/22/12 Multivitamins/Minerals (Centrum Silver) 1 Tab Tab, 1 TAB PO DAILY 07/04/11 Discontinued Scripts Pantoprazole* (Pantoprazole*) 40 Mg Tabec, 40 MG PO DAILY@06 for 30 Days Prov:ESTELLA DRAKE 02/27/15 Furosemide* (Lasix*) 40 Mg Tab, 40 MG PO DAILY for 30 Days, TAB Prov:ESTELLA DRAKE 02/27/15 Current Medications IV Flush (NS 3 ml) 3 ml PER PROTOCOL IV ; Start 05/28/18 at 19:00 Ondansetron HCl (Zofran Inj) 4 mg Q6H PRN IV NAUSEA/VOMITING; Start 05/28/18 at 19:00 Acetaminophen (Tylenol Tab) 650 mg Q6H PRN PO .PAIN 1-3 OR TEMP; Start 05/28/18 at 19:00 Acetaminophen/ Hydrocodone Bitart ([place] (5/325)) 1 tab Q6H PRN PO .MOD PAIN 4- 6; Start 05/28/18 at 19:00 Morphine Sulfate (morphine) 2 mg Q4H PRN IV .SEVERE PAIN 7-10; Start 05/28/18 at 19:00 Docusate Sodium (Colace) 100 mg Q12H PRN PO .CONSTIPATION; Start 05/28/18 at 19:00 Magnesium Hydroxide (Milk Of Mag) 30 ml DAILY PRN PO .CONSTIPATION; Start 05/28/18 at 19:00 Lorazepam (Ativan) 0.5 mg Q6H PRN IV ANXIETY; Start 05/28/18 at 19:00 Albuterol/ Ipratropium (Duoneb) 3 ml Q4H RESP THERAPY PRN HHN SHORTNESS OF BREATH; Start 05/28/18 at 19:00 Hydralazine HCl (Apresoline) 10 mg Q6H PRN IV ELEVATED BLOOD PRESSURE; Start 05/28/18 at 19:00 Nitroglycerin (Nitroglycerin (Sl Tab) 0.4 Mg) 1 tab Q5M PRN SL ANGINA; Start 05/28/18 at 19:00 Atorvastatin Calcium (Lipitor) 10 mg QHS PO Last administered on 05/28/18at 23:24; Admin Dose 10 MG; Start 05/28/18 at 21:00 Carvedilol (Coreg) 6.25 mg DAILY PO ; Start 05/29/18 at 09:00 Levothyroxine Sodium (Synthroid) 100 mcg BEFORE BREAKFAST PO Last administered on 05/29/18at 06:41; Admin Dose 100 MCG; Start 05/29/18 at 07:00 Calcium Carbonate (Oyster Shell Calcium) 1.25 gm BID PO Last administered on 05/28/18at 23:24; Admin Dose 1.25 GM; Start 05/28/18 at 21:00 Cyanocobalamin (Vitamin B12) 1,000 mcg DAILY PO ; Start 05/29/18 at 09:00 Multivitamins/ Minerals (Theragran-M) 1 tab DAILY PO ; Start 05/29/18 at 09:00 Ondansetron HCl (Zofran Inj) 4 mg ER BRIDGE PRN IV NAUSEA/VOMITING; Start 05/28/18 at 19:30; Stop 05/29/18 at 19:29 Acetaminophen (Tylenol Tab) 650 mg ER BRIDGE PRN PO .MILD PAIN 1-3 OR TEMP; Start 05/28/18 at 19:30; Stop 05/29/18 at 19:29 Pantoprazole (Protonix Iv) 40 mg BID@06,18 IV Last administered on 05/29/18at 06:01; Admin Dose 40 MG; Start 05/28/18 at 19:30 Meds reviewed: Yes Allergies Coded Allergies: No Known Allergy (Unverified , 05/28/18) Allergies Reviewed: Yes Labs/Studies Labs Reviewed: Reviewed by anesthesiologist Result Diagram: 05/29/18 0509 05/29/18 0509 Laboratory Tests 05/29/18 05:09 Blood Bank Test 05/28/18 17:37 Antibody Screen NEGATIVE Blood Product Summary Counts Blood Type B NEGATIVE Crossmatch Red Blood Cells test: N/A Studies: ECG (n/a), CXR (n/a) Pre-procedure Exam Last vitals Vital Signs Date Temp Pulse Resp B/P (MAP) Pulse Ox O2 O2 Flow FiO2 Time Delivery Rate 05/29/18 60 12:03 05/29/18 97.7 18 140/67 98 11:32 (91) 05/29/18 Nasal 2.0 03:41 Cannula Airway: Adequate mouth opening, Adequate thyromental dist Mallampati: Mallampati II Teeth: Normal Lung: Normal Heart: Normal ASA Physical Status ASA physical status: 4 Emergency: None Planned Anesthetic General/MAC: MAC Planned Pain Management Parenteral pain med Pre-operative Attestations Prior to commencing anesthesia and surgery, the patient was re-evaluated, there was verification of: *The patient's identity *The results of appropriate recent lab work and preoperative vital signs *The above evaluation not changing prior to induction *Anesthetic plan, risk benefits, alternative and complications discussed with patient/family; questions answered; patient/family understands, accepts and wishes to proceed. KANG BURK MD May 29, 2018 13:03
[2018-05-29] MEDS ORDERED: PROPOFOL 20 ML ONE (13:15)
--- NOTE | 2018-05-29 13:19 | PAC ---
Date/Time of Note Date/Time of Note DATE: 05/29/18 TIME: 13:18 Post-Anesthesia Notes Post-Anesthesia Note Last documented vital signs Vital Signs Date Temp Pulse Resp B/P (MAP) Pulse Ox O2 O2 Flow FiO2 Time Delivery Rate 05/29/18 60 12:03 05/29/18 97.7 60 18 140/67 98 13:32 (91) 05/29/18 Nasal 2.0 03:41 Cannula Activity: WNL Respiratory function: WNL Cardiovascular function: WNL Mental status: Baseline Pain reasonably controlled: Yes Hydration appropriate: Yes Nausea/Vomiting absent: Yes KANG BURK MD May 29, 2018 13:19
--- NOTE | 2018-05-29 13:27 | CONS ---
Assessment/Plan Assessment/Plan Assessment/Plan (Daily) Assessment: GI bleeding/hematochezia/melena. Anemia. Anticoagulation Dementia A-fib - CKD CHF Plan: EGD now Monitor H and H Transfuse for hemoglobin less then 7.5 Consultation Date/Type/Reason Admit Date/Time May 28, 2018 at 19:26 Date of Consultation: May 29, 2018 Type of Consult Gastroenterology Reason for Consultation GI bleeding Date/Time of Note DATE: 05/29/18 TIME: 13:14 Hx of Present Illness 82-year-old female previously evaluated by GI team for gastrointestinal bleeding. The patient underwent colonoscopy at which time severe diverticulosis with evidence of recent bleeding was noted. No further bleeding occurred the patient was discharged. The patient returns with what she describes as dark melena and sometimes red bowel movements. She is again significantly anemic. The patient denies hematemesis. Patient denies abdominal pain. The patient will be evaluated endoscopically at this point to rule out upper GI source of bleeding. Further recommendation will depend on our findings. Review of Systems: [A 12 system, review was conducted and is negative except as noted in the HPI or here.] Gastrointestinal and liver: [As noted in HPI] Past Medical History Diverticulosis with evidence of recent bleeding. CHF, A-fib, CKD, Dementia Home Meds Reported Medications Cyanocobalamin (Vitamin B-12) (Vitamin B-12) 1,000 Mcg Tab.subl, 1000 MCG SL DAILY 05/28/18 Multivitamin/Iron/Folic Acid (Centrum Adults Tablet) 1 Each Tablet, 1 EACH PO DAILY, TAB 05/28/18 Calcium Carbonate* (Calcium Carbonate*) 600 MG Ca Tab, 600 MG PO BID, TAB 05/28/18 Omeprazole* (Omeprazole*) 40 Mg Capsule.dr, 40 MG PO DAILY, #30 CAP 05/28/18 Atorvastatin Calcium (Atorvastatin Calcium) 10 Mg Tablet, 10 MG PO QHS, #30 TAB 05/28/18 Apixaban* (Eliquis*) 2.5 Mg Tablet, 2.5 MG PO DAILY, TAB 05/28/18 Sacubitril/Valsartan (Entresto 49 mg-51 mg Tablet) 1 Each Tablet, 1 EACH PO DAILY, TAB 05/28/18 Carvedilol* (Carvedilol*) 6.25 Mg Tablet, 6.25 MG PO DAILY, #60 TAB 05/28/18 Furosemide* (Furosemide*) 40 Mg Tablet, 40 MG PO DAILY, TAB 05/28/18 Spironolactone* (Aldactone*) 25 Mg Tablet, 25 MG PO DAILY, #30 TAB 05/28/18 Levothyroxine Sodium* (Levothyroxine Sodium*) 100 Mcg Tablet, 100 MCG PO BEFORE BREAKFAST, #30 TAB 05/28/18 Discontinued Reported Medications Apixaban* (Eliquis*) 2.5 Mg Tablet, 2.5 MG PO BID, TAB 02/22/15 Calcium Carbonate (Qqcg-Sct-040) 1 Tab Tablet, 1 TAB PO BID, TAB 02/22/15 Atorvastatin Calcium (Atorvastatin Calcium) 10 Mg Tablet, 10 MG PO QHS, #30 TAB 02/22/15 Carvedilol* (Coreg*) 3.125 Mg Tablet, 3.125 MG PO BID, TAB 02/22/15 Levothyroxine Sodium (Levothroid) 100 Mcg Tablet, 100 MCG PO DAILY 02/22/12 Ferrous Sulfate (Iron) 325 Mg Capsr, 325 MG PO TID 02/22/12 Cyanocobalamin (Cyanocobalamin) 1,000 Mcg Tablet, 1000 MCG PO DAILY 02/22/12 Multivitamins/Minerals (Centrum Silver) 1 Tab Tab, 1 TAB PO DAILY 07/04/11 Discontinued Scripts Pantoprazole* (Pantoprazole*) 40 Mg Tabec, 40 MG PO DAILY@06 for 30 Days Prov:ESTELLA DRAKE 02/27/15 Furosemide* (Lasix*) 40 Mg Tab, 40 MG PO DAILY for 30 Days, TAB Prov:ESTELLA DRAKE 02/27/15 Medications Current Medications IV Flush (NS 3 ml) 3 ml PER PROTOCOL IV ; Start 05/28/18 at 19:00 Ondansetron HCl (Zofran Inj) 4 mg Q6H PRN IV NAUSEA/VOMITING; Start 05/28/18 at 19:00 Acetaminophen (Tylenol Tab) 650 mg Q6H PRN PO .PAIN 1-3 OR TEMP; Start 05/28/18 at 19:00 Acetaminophen/ Hydrocodone Bitart ([place] (5/325)) 1 tab Q6H PRN PO .MOD PAIN 4- 6; Start 05/28/18 at 19:00 Morphine Sulfate (morphine) 2 mg Q4H PRN IV .SEVERE PAIN 7-10; Start 05/28/18 at 19:00 Docusate Sodium (Colace) 100 mg Q12H PRN PO .CONSTIPATION; Start 05/28/18 at 19:00 Magnesium Hydroxide (Milk Of Mag) 30 ml DAILY PRN PO .CONSTIPATION; Start 05/28/18 at 19:00 Lorazepam (Ativan) 0.5 mg Q6H PRN IV ANXIETY; Start 05/28/18 at 19:00 Albuterol/ Ipratropium (Duoneb) 3 ml Q4H RESP THERAPY PRN HHN SHORTNESS OF BREATH; Start 05/28/18 at 19:00 Hydralazine HCl (Apresoline) 10 mg Q6H PRN IV ELEVATED BLOOD PRESSURE; Start 05/28/18 at 19:00 Nitroglycerin (Nitroglycerin (Sl Tab) 0.4 Mg) 1 tab Q5M PRN SL ANGINA; Start 05/28/18 at 19:00 Atorvastatin Calcium (Lipitor) 10 mg QHS PO Last administered on 05/28/18at 23:24; Admin Dose 10 MG; Start 05/28/18 at 21:00 Carvedilol (Coreg) 6.25 mg DAILY PO ; Start 05/29/18 at 09:00 Levothyroxine Sodium (Synthroid) 100 mcg BEFORE BREAKFAST PO Last administered on 05/29/18at 06:41; Admin Dose 100 MCG; Start 05/29/18 at 07:00 Calcium Carbonate (Oyster Shell Calcium) 1.25 gm BID PO Last administered on 05/28/18at 23:24; Admin Dose 1.25 GM; Start 05/28/18 at 21:00 Cyanocobalamin (Vitamin B12) 1,000 mcg DAILY PO ; Start 05/29/18 at 09:00 Multivitamins/ Minerals (Theragran-M) 1 tab DAILY PO ; Start 05/29/18 at 09:00 Ondansetron HCl (Zofran Inj) 4 mg ER BRIDGE PRN IV NAUSEA/VOMITING; Start 05/28/18 at 19:30; Stop 05/29/18 at 19:29 Acetaminophen (Tylenol Tab) 650 mg ER BRIDGE PRN PO .MILD PAIN 1-3 OR TEMP; Start 05/28/18 at 19:30; Stop 3/15/19 at 19:29 Pantoprazole (Protonix Iv) 40 mg BID@06,18 IV Last administered on 05/29/18at 06:01; Admin Dose 40 MG; Start 05/28/18 at 19:30 Allergies: Coded Allergies: No Known Allergy (Unverified , 05/28/18) Past Surgical History Past Surgical Hx: no surgical history Family History Significant Family History: no pertinent family hx Social History Alcohol Use: none Smoking Status: Never smoker Drug Use: none Exam/Review of Systems Exam Vitals Vital Signs Date Temp Pulse Resp B/P (MAP) Pulse Ox O2 O2 Flow FiO2 Time Delivery Rate 05/29/18 60 12:03 05/29/18 97.7 18 140/67 98 11:32 (91) 05/29/18 Nasal 2.0 03:41 Cannula Intake and Output 05/28/18 05/28/18 05/29/18 1515:00 23:00 07:00 IntakeIntake Total 310 ml BalanceBalance 310 ml Exam Exam PHYSICAL EXAMINATION: GENERAL: Well developed, poorly nourished, alert & oriented x 3, in no acute distress SKIN: No lesions, no stigmata chronic liver disease, no evidence of bleeding diathesis LYMPHATIC: No palpable lymphadenopathy. HEAD: Normocephalic, atraumatic, no tenderness. EYES: Pupils equal reactive to light and accommodation, full extraocular movements, sclera clear, non-icteric, no discharge. EARS/NOSE AND THROAT: Ears normal, nose normal, oropharynx normal, oral membranes well hydrated without lesions. NECK: Supple, no masses, thyroid normal, JVP within normal limits, carotids normal without bruits. CHEST: Inspection within normal limits. CARDIOVASCULAR: Heart: Regular rate and rhythm, no murmurs, gallops or rubs. Peripheral pulses present within normal limits, no cyanosis, clubbing or edemas. No pulsatile abdominal mass RESPIRATORY: Lungs clear to auscultation and percussion, no wheezing, no rubs GASTROINTESTINAL AND LIVER: Abdomen: Soft, non tenderness, non-distended, no hernias, no masses, no organomegaly, no ascites, no guarding, no rebound tenderness, normoactive bowel sounds. Rectal: Deferred. GENITOURINARY: Female genitalia within normal limits. EXTREMITIES: No cyanosis, clubbing or edema. Results Result Diagram: 05/29/18 0509 05/29/18 0509 Results 24hrs Laboratory Tests Test 05/28/18 17:25 05/28/18 17:37 05/29/18 05:09 05/29/18 05:20 B-Type 06650 H Natriuretic Peptide Free Thyroxine 2.01 H White Blood Count 8.5 # 6.7 # Red Blood Count 1.79 #L 2.83 #L Hemoglobin 5.9 #*L 8.8 #L Hematocrit 19.7 #L 27.0 #L Mean Corpuscular 110.1 H 95.4 Volume Mean Corpuscular 33.0 31.1 Hemoglobin Mean Corpuscular 29.9 L 32.6 Hemoglobin Concen t Red Cell 15.1 H 19.3 #H Distribution Width Platelet Count 161 114 #L Mean Platelet 9.8 9.4 Volume Immature 0.500 H 0.400 Granulocytes % Neutrophils % 77.8 H Segmented 79 H Neutrophils % (Manual) Lymphocytes % 12.4 L Lymphocytes % 11 L (Manual) Reactive 1 H Lymphocytes % (Manual) Monocytes % 8.8 Monocytes % 9 (Manual) Eosinophils % 0.3 Basophils % 0.3 Nucleated Red 0.4 H 0.3 H Blood Cells % Immature 0.040 H 0.030 Granulocytes # Neutrophils # 5.2 Lymphocytes 0.9 (Manual) Lymphocytes # 0.8 Reactive 0.0 Lymphocytes # Monocytes # 0.6 Monocytes # 0.7 (Manual) Eosinophils # 0.0 Basophils # 0.0 Nucleated Red 0.0 Blood Cells # Platelet Estimate NORMAL Giant Platelets 1 H Polychromasia 3+ Hypochromasia 1+ Anisocytosis 1+ Microcytosis 1+ Prothrombin Time 14.6 Prothrombin Time 1.1 Ratio INR International 1.13 Normalized Ratio Activated 24.0 Partial Thrombopl ast Time Sodium Level 138 138 Potassium Level 4.4 4.2 Chloride Level 104 104 Carbon Dioxide 20 L 25 Level Anion Gap 14 H 9 # Blood Urea 59 H 57 H Nitrogen Creatinine 2.30 H 2.02 H Est Glomerular Filtrat Rate mL/min Glucose Level 133 78 # Calcium Level 9.3 8.7 Total Bilirubin 0.3 Direct Bilirubin 0.00 Indirect 0.3 Bilirubin Aspartate Amino 25 Transf (AST/SGOT) Alanine 25 Aminotransferase (ALT/SGPT) Alkaline 43 Phosphatase Troponin I 0.091 Total Protein 5.8 L Albumin 3.5 Globulin 2.30 Albumin/Globulin 1.52 Ratio Hemoglobin A1c 5.1 Phosphorus Level 5.1 H Magnesium Level 2.4 Triglycerides 58 Level Cholesterol Level 71 L LDL Cholesterol, 26 Calculated HDL Cholesterol 33 Cholesterol/HDL 2.1 Ratio Thyroid 0.838 Stimulating Hormone (TSH) Lab Scanned BLOOD TRANSFUSIO Report N Medications Medication Current Medications IV Flush (NS 3 ml) 3 ml PER PROTOCOL IV ; Start 05/28/18 at 19:00 Ondansetron HCl (Zofran Inj) 4 mg Q6H PRN IV NAUSEA/VOMITING; Start 05/28/18 at 19:00 Acetaminophen (Tylenol Tab) 650 mg Q6H PRN PO .PAIN 1-3 OR TEMP; Start 05/28/18 at 19:00 Acetaminophen/ Hydrocodone Bitart ([place] (5/325)) 1 tab Q6H PRN PO .MOD PAIN 4- 6; Start 05/28/18 at 19:00 Morphine Sulfate (morphine) 2 mg Q4H PRN IV .SEVERE PAIN 7-10; Start 05/28/18 at 19:00 Docusate Sodium (Colace) 100 mg Q12H PRN PO .CONSTIPATION; Start 05/28/18 at 19:00 Magnesium Hydroxide (Milk Of Mag) 30 ml DAILY PRN PO .CONSTIPATION; Start 05/28/18 at 19:00 Lorazepam (Ativan) 0.5 mg Q6H PRN IV ANXIETY; Start 05/28/18 at 19:00 Albuterol/ Ipratropium (Duoneb) 3 ml Q4H RESP THERAPY PRN HHN SHORTNESS OF BREATH; Start 05/28/18 at 19:00 Hydralazine HCl (Apresoline) 10 mg Q6H PRN IV ELEVATED BLOOD PRESSURE; Start 05/28/18 at 19:00 Nitroglycerin (Nitroglycerin (Sl Tab) 0.4 Mg) 1 tab Q5M PRN SL ANGINA; Start 05/28/18 at 19:00 Atorvastatin Calcium (Lipitor) 10 mg QHS PO Last administered on 05/28/18at 23:24; Admin Dose 10 MG; Start 05/28/18 at 21:00 Carvedilol (Coreg) 6.25 mg DAILY PO ; Start 05/29/18 at 09:00 Levothyroxine Sodium (Synthroid) 100 mcg BEFORE BREAKFAST PO Last administered on 05/29/18at 06:41; Admin Dose 100 MCG; Start 05/29/18 at 07:00 Calcium Carbonate (Oyster Shell Calcium) 1.25 gm BID PO Last administered on 05/28/18at 23:24; Admin Dose 1.25 GM; Start 05/28/18 at 21:00 Cyanocobalamin (Vitamin B12) 1,000 mcg DAILY PO ; Start 05/29/18 at 09:00 Multivitamins/ Minerals (Theragran-M) 1 tab DAILY PO ; Start 05/29/18 at 09:00 Ondansetron HCl (Zofran Inj) 4 mg ER BRIDGE PRN IV NAUSEA/VOMITING; Start 05/28/18 at 19:30; Stop 05/29/18 at 19:29 Acetaminophen (Tylenol Tab) 650 mg ER BRIDGE PRN PO .MILD PAIN 1-3 OR TEMP; Start 05/28/18 at 19:30; Stop 05/29/18 at 19:29 Pantoprazole (Protonix Iv) 40 mg BID@06,18 IV Last administered on 05/29/18at 06:01; Admin Dose 40 MG; Start 05/28/18 at 19:30 ELVIRA MARK MD May 29, 2018 13:27
--- NOTE | 2018-05-29 16:35 | CONS ---
DATE OF ADMISSION: 05/28/2018 DATE OF CONSULTATION: 05/29/2018 TYPE OF CONSULTATION: Nephrology. REASON FOR CONSULTATION: Acute kidney injury, CKD. PHYSICIAN REQUESTING CONSULT: Isac Lynch M.D. HISTORY OF PRESENT ILLNESS: This is an 82-year-old female with the past medical history of CKD with the baseline creatinine around 1.5 to 2 mg/dL, history of atrial fibrillation, on Eliquis, history o f aortic valve replacement, history of CHF, history of lower GI bleed with rectal bleeding x1 week. The patient states her symptoms began last 1 to 2 weeks since her last discharge in mid April. Th e patient says she has been takingEliquis at half doses recommended by a physician. The patient upon arrival to the emergency room was noted to have hemoglobin of 5.9 mg/dL. The patient was typed and crossed, transfused 2 units of PRBC and admitted to telemetry for evaluation. In terms of the patien t's renal history, the patient has underlying CKD. She has an atrophic left kidney and right kidney that showed increased echogenicity. The patient states her renal function has been stable as far as she understood. She does not see an outpatient chief security officer. She denies any hematuria or any rashes . PAST MEDICAL HISTORY: History of paroxysmal atrial fibrillation, on Eliquis, history of aortic valve replacement, history of CHF, previous history of lower GI bleed. PAST SURGICAL HISTORY: Status post TVAR. ALLERGIES: NO KNOWN DRUG ALLERGIES. FAMILY HISTORY: No family history of kidney disease. SOCIAL HISTORY: Does not drink, smoke or do drugs. MEDICATIONS: The patient's medications have been reviewed. REVIEW OF SYSTEMS: A 14-point review of systems was conducted. Pertinent positives as stated in the HPI, otherwise negative. PHYSICAL EXAMINATION: VITAL SIGNS: Blood pressure is 100/67, respirations 16, pulse 60, temperature 98.0. HEENT: Head is normocephalic. NECK: Supple. HEART: Regular rate. LUNGS: Show diminished breath sounds at the base. ABDOMEN: Soft, nontender to palpation without rebound or guarding. EXTREMITIES: Negative for clubbing, cyanosis. Trace edema. DERMATOLOGIC: No rashes. MUSCULOSKELETAL: No joint effusion. NEUROLOGIC: No focal deficits. The patient's medications have been reviewed. LABORATORY DATA: Shows sodium 138, potassium 4.2, BUN 27, creatinine 2.02. White count 6.7, hemoglo bin 8.8, platelet count is 114. IMAGING STUDIES: Reviewed. ASSESSMENT AND PLAN: This is an 82-year-old female who presents with: 1. Nonoliguric chronic kidney disease with previous baseline creatinine of 1.5 to 2 mg/dL. Etiology of SHANEKA is likely secondary to hemodynamics from diuretic use. The possibility of tubular injury or interstitial nephritis is a consideration. Plan at this point is to do a full evaluation. We will c heck UA with microanalysis, check urine electrolytes, calculate a fractional excretion of urea. The patient's previous renal ultrasound was reviewed, which showed increased echogenicities consistent wi th chronic kidney disease. The patient's renal function has improved after gentle course of IV fluid s. At this point, we will continue to monitor closely. We would continue to hold diuretic therapy. Defer any CHARIS inhibitor or ARB at this time. 2. Mineral bone disorder, monitor calcium and phosphatase levels. 3. Anemia. Monitor H and H levels. The patient is status post blood transfusion. A GI consult has been placed. The patient is pending EGD. 4. Atrial fibrillation. Continue medical management. Holding anticoagulation in setting of possibl e gastrointestinal bleed. 5. History of congestive heart failure. The patient appears compensated. We will continue to monit or. If renal function remains stable, may reintroduce diuretic therapy. 6. History of dementia. Continue medical management. 7. High potassium. Continue Synthroid. 8. Dyslipidemia. Continue statin therapy. Thank you, Dr. Lynch, for this interesting consult. It will be a pleasure to follow patient with you throughout the hospital course. Dictated By: CATRACHO LILLY/SHAYNA Conf#: [id number] DID#: [id number]
[2018-05-29] MEDS: ATORVASTATIN 10 MG TAB PO SCH (21:00)
[2018-05-30] VITALS (11 sets, daily range): BP systolic 90–118; BP diastolic 52–62; PULSE 60–80; RESP 17–18
[2018-05-30] MEDS: LEVOTHYROXINE 100 MCG TAB PO SCH (06:02)
[2018-05-30] MEDS: PANTOPRAZOLE 40 MG INJ IV SCH ×2 (06:02→17:36)
[2018-05-30] MEDS ORDERED: DEXTROSE 50% 50 ML SYRINGE IV PRN (07:30)
[2018-05-30] MEDS: CYANOCOBALAMIN 500 MCG TAB PO SCH (08:22)
[2018-05-30] MEDS: MULTIVITAMINS/MINERALS TAB PO SCH (08:22)
[2018-05-30] MEDS: CALCIUM CARBONATE 1.25 GM TAB PO SCH ×2 (08:22→21:00)
--- NOTE | 2018-05-30 09:45 | PN ---
Date/Time of Note Date/Time of Note DATE: 05/30/18 TIME: 09:44 Assessment/Plan VTE Prophylaxis Risk score (from Ns)>0 risk: 4 SCD applied (from Ns): Yes Pharmacological prophylaxis: other Lines/Catheters IV Catheter Type ([facility]): Peripheral IV Assessment/Plan Hospital Course renal follow up all noted no significant event overnight d/w Dr Landis no fever, chills, hematuria or melena PHYSICAL EXAMINATION: HEENT: Head is normocephalic. NECK: Supple. HEART: Regular rate. LUNGS: Show diminished breath sounds at the base. ABDOMEN: Soft, nontender to palpation without rebound or guarding. EXTREMITIES: Negative for clubbing, cyanosis. Trace edema. DERMATOLOGIC: No rashes. MUSCULOSKELETAL: No joint effusion. NEUROLOGIC: No focal deficits. The patient's medications have been reviewed. IMAGING STUDIES: Reviewed. ASSESSMENT AND PLAN: This is an 82-year-old female who presents with: 1. Nonoliguric chronic kidney disease with previous baseline creatinine of 1.5 to 2 mg/dL. Etiology of SHANEKA is likely secondary to hemodynamics from diuretic use. The patient's renal function has improved after gentle course of IV fluids. At this point, we will continue to monitor closely. We would continue to hold diuretic therapy. Defer any CHARIS inhibitor or ARB at this time. 2. Mineral bone disorder, monitor calcium and phosphatase levels. 3. Anemia. Monitor H and H levels. The patient is status post blood transfusion. A GI consult has been placed. The patient is pending EGD. 4. Atrial fibrillation. Continue medical management. Holding anticoagulation in setting of possible gastrointestinal bleed. 5. History of congestive heart failure. The patient appears compensated. We will continue to monitor. If renal function remains stable, may reintroduce diuretic therapy. 6. History of dementia. Continue medical management. 7. High potassium. Continue Synthroid. 8. Dyslipidemia. Continue statin therapy. Result Diagram: 05/30/18 0506 05/30/18 0506 Results 24hrs Laboratory Tests Test 05/29/18 18:42 05/29/18 19:30 05/30/18 00:33 05/30/18 05:06 Hemoglobin 10.0 L 9.5 L 9.0 L Hematocrit 31.4 L 29.2 L 28.0 L Urine Color YELLOW Urine Clarity CLOUDY A Urine pH 5.0 Urine Specific 1.014 [place] Urine Ketones TRACE A Urine Nitrite NEGATIVE Urine Bilirubin NEGATIVE Urine Urobilinogen NEGATIVE Urine Leukocyte 3+ H Esterase Urine Microscopic 6 H RBC Urine Microscopic > 182 H WBC Urine Squamous FEW Epithelial Cells Urine Bacteria FEW A Urine Hemoglobin 3+ H Urine Random 76.57 Creatinine Urine Random Sodium 66 Urine Glucose NEGATIVE Urine Total Protein 16.0 H White Blood Count 6.4 Red Blood Count 2.87 L Mean Corpuscular 97.6 Volume Mean Corpuscular 31.4 Hemoglobin Mean Corpuscular 32.1 Hemoglobin Concent Red Cell 19.9 H Distribution Width Platelet Count 107 L Mean Platelet Volume 9.5 Immature 0.500 H Granulocytes % Neutrophils % 77.4 H Lymphocytes % 10.8 L Monocytes % 8.3 Eosinophils % 2.5 Basophils % 0.5 Nucleated Red Blood 0.3 H Cells % Immature 0.030 Granulocytes # Neutrophils # 5.0 Lymphocytes # 0.7 L Monocytes # 0.5 Eosinophils # 0.2 Basophils # 0.0 Nucleated Red Blood 0.0 Cells # Sodium Level 140 Potassium Level 4.3 Chloride Level 108 Carbon Dioxide Level 20 L Anion Gap 12 Blood Urea Nitrogen 51 H Creatinine 1.67 H Est Glomerular Filtrat Rate mL/min Glucose Level 42 #*L Calcium Level 8.9 Test 05/30/18 07:28 05/30/18 07:58 05/30/18 08:21 Bedside Glucose 44 *L 190 180 Exam/Review of Systems Exam Vitals Vital Signs Date Temp Pulse Resp B/P (MAP) Pulse Ox O2 O2 Flow FiO2 Time Delivery Rate 05/30/18 65 08:00 05/30/18 97.7 17 90/55 (67) 90 07:19 05/30/18 Room Air 03:42 Nasal Cannula 05/29/18 10 12:51 Intake and Output 05/29/18 05/29/18 05/30/18 1515:00 23:00 07:00 IntakeIntake Total 250 ml BalanceBalance 250 ml Results Results 24hrs Laboratory Tests Test 05/29/18 18:42 05/29/18 19:30 05/30/18 00:33 05/30/18 05:06 Hemoglobin 10.0 L 9.5 L 9.0 L Hematocrit 31.4 L 29.2 L 28.0 L Urine Color YELLOW Urine Clarity CLOUDY A Urine pH 5.0 Urine Specific 1.014 [place] Urine Ketones TRACE A Urine Nitrite NEGATIVE Urine Bilirubin NEGATIVE Urine Urobilinogen NEGATIVE Urine Leukocyte 3+ H Esterase Urine Microscopic 6 H RBC Urine Microscopic > 182 H WBC Urine Squamous FEW Epithelial Cells Urine Bacteria FEW A Urine Hemoglobin 3+ H Urine Random 76.57 Creatinine Urine Random Sodium 66 Urine Glucose NEGATIVE Urine Total Protein 16.0 H White Blood Count 6.4 Red Blood Count 2.87 L Mean Corpuscular 97.6 Volume Mean Corpuscular 31.4 Hemoglobin Mean Corpuscular 32.1 Hemoglobin Concent Red Cell 19.9 H Distribution Width Platelet Count 107 L Mean Platelet Volume 9.5 Immature 0.500 H Granulocytes % Neutrophils % 77.4 H Lymphocytes % 10.8 L Monocytes % 8.3 Eosinophils % 2.5 Basophils % 0.5 Nucleated Red Blood 0.3 H Cells % Immature 0.030 Granulocytes # Neutrophils # 5.0 Lymphocytes # 0.7 L Monocytes # 0.5 Eosinophils # 0.2 Basophils # 0.0 Nucleated Red Blood 0.0 Cells # Sodium Level 140 Potassium Level 4.3 Chloride Level 108 Carbon Dioxide Level 20 L Anion Gap 12 Blood Urea Nitrogen 51 H Creatinine 1.67 H Est Glomerular Filtrat Rate mL/min Glucose Level 42 #*L Calcium Level 8.9 Test 05/30/18 07:28 05/30/18 07:58 05/30/18 08:21 Bedside Glucose 44 *L 190 180 Medications Medication Current Medications IV Flush (NS 3 ml) 3 ml PER PROTOCOL IV ; Start 05/28/18 at 19:00 Ondansetron HCl (Zofran Inj) 4 mg Q6H PRN IV NAUSEA/VOMITING; Start 05/28/18 at 19:00 Acetaminophen (Tylenol Tab) 650 mg Q6H PRN PO .PAIN 1-3 OR TEMP; Start 05/28/18 at 19:00 Acetaminophen/ Hydrocodone Bitart ([place] (5/325)) 1 tab Q6H PRN PO .MOD PAIN 4- 6; Start 05/28/18 at 19:00 Morphine Sulfate (morphine) 2 mg Q4H PRN IV .SEVERE PAIN 7-10; Start 05/28/18 at 19:00 Docusate Sodium (Colace) 100 mg Q12H PRN PO .CONSTIPATION; Start 05/28/18 at 19:00 Magnesium Hydroxide (Milk Of Mag) 30 ml DAILY PRN PO .CONSTIPATION; Start 05/28/18 at 19:00 Lorazepam (Ativan) 0.5 mg Q6H PRN IV ANXIETY; Start 05/28/18 at 19:00 Albuterol/ Ipratropium (Duoneb) 3 ml Q4H RESP THERAPY PRN HHN SHORTNESS OF BREATH; Start 05/28/18 at 19:00 Hydralazine HCl (Apresoline) 10 mg Q6H PRN IV ELEVATED BLOOD PRESSURE; Start 05/28/18 at 19:00 Nitroglycerin (Nitroglycerin (Sl Tab) 0.4 Mg) 1 tab Q5M PRN SL ANGINA; Start 05/28/18 at 19:00 Atorvastatin Calcium (Lipitor) 10 mg QHS PO Last administered on 05/28/18 23:24; Admin Dose 10 MG; Start 05/28/18 at 21:00 Carvedilol (Coreg) 6.25 mg DAILY PO ; Start 05/29/18 at 09:00 Levothyroxine Sodium (Synthroid) 100 mcg BEFORE BREAKFAST PO Last administered on 05/30/18 06:02; Admin Dose 100 MCG; Start 05/29/18 at 07:00 Calcium Carbonate (Oyster Shell Calcium) 1.25 gm BID PO Last administered on 05/28/18 23:24; Admin Dose 1.25 GM; Start 05/28/18 at 21:00 Cyanocobalamin (Vitamin B12) 1,000 mcg DAILY PO ; Start 05/29/18 at 09:00 Multivitamins/ Minerals (Theragran-M) 1 tab DAILY PO ; Start 05/29/18 at 09:00 Pantoprazole (Protonix Iv) 40 mg BID@18 IV Last administered on 05/30/18 06:02; Admin Dose 40 MG; Start 05/28/18 at 19:30 Dextrose (D50w Syringe) 50 ml PRN PRN IV DECREASED GLUCOSE Last administered on 05/30/18 07:36; Admin Dose 50 ML; Start 05/30/18 at 07:30 RJ DEVINE DO May 30, 2018 09:45
--- NOTE | 2018-05-30 10:53 | PN ---
Date/Time of Note Date/Time of Note DATE: 05/30/18 TIME: 10:51 Assessment/Plan VTE Prophylaxis Risk score (from Ns)>0 risk: 4 SCD applied (from Ns): Yes Pharmacological prophylaxis: NA/contraindicated Pharm contraindication: bleeding Lines/Catheters IV Catheter Type (from [facility]): Peripheral IV Assessment/Plan Hospital Course S: Patient had no lower GI bleeding episodes overnight. Tagged RBC scan nuclear significant for positive result, likely right lower quadrant source of bleed. Seen by GI team and renal team today. O: VS - see below PHYSICAL EXAMINATION: GENERAL: lying in bed, NAD HEENT: Pupils equal, round, reactive to light. Extraocular muscles intact. NECK: Supple. No thyromegaly. LUNGS: Clear to auscultation bilaterally. CARDIOVASCULAR: S1 and S2 heard. No rubs or gallops. ABDOMEN: Soft, nontender, nondistended. Normal bowel sounds. No rebound or guarding. MUSCULOSKELETAL: No lower extremity edema bilaterally. NEUROLOGIC: No focal deficits. ASSESSMENT AND PLAN: 82-year-old female coming in with history of paroxysmal atrial fibrillation on Eliquis, transcatheter aortic valve replacement, congestive heart failure, recent lower gastrointestinal bleeding 2 weeks ago, hospitalized for that, status post colonoscopy with internal hemorrhoids and diverticulosis, presents with continued lower gastrointestinal bleeding and anemia, hemoglobin 5.9. 1. Anemia, lower gastrointestinal bleeding-on presentation the hemoglobin 5.9. -Status post 2 units of PRBC transfusion 2 days ago, hemoglobin since has been improved - Monitor CBC every morning and signs for further lower GI bleeding - Continue to hold all anticoagulants including Eliquis. - Per GI team recommendations -given positive nuclear tagged RBC scan results (likely right colon diverticular source), they feel no therapeutic intervention other than colectomy will decrease this risk -they are also recommending ordering small bowel series to rule out remote possibility of alternative explanation of bleeding from small bowel - Continue Protonix IV BID for now 2. History of congestive heart failure. BNP 10,000 this admission. - Continue to monitor for now. - Continue current cardiac medications cautiously. 3. High cholesterol. - Continue statin. -Follow up lipid panel. 4. History of transcatheter aortic valve replacement (TAVR). - Again, holding Eliquis for now given likely gastrointestinal bleed. - Continue to monitor heart rate. - Carefully continue current cardiac medications, will go ahead and get cardiology consult particularly now that GI team is recommending stopping the anticoagulation altogether given the patient's likely diverticular bleeding source. 5. History of paroxysmal atrial fibrillation. Presently rate controlled - again, continue to monitor heart rate on telemetry. -Again, holding off on anticoagulation given her gastrointestinal bleeding presently right now. 6. Thyroid issues. - Continue current thyroid medications. - Follow up thyroid panel. 7. Gastrointestinal prophylaxis. Again, continue on PPI IV b.i.d. 8. Deep venous thrombosis prophylaxis. SCDs. Result Diagram: 05/30/18 0506 05/30/18 0506 Results 24hrs Laboratory Tests Test 05/29/18 18:42 05/29/18 19:30 05/30/18 00:33 05/30/18 05:06 Hemoglobin 10.0 L 9.5 L 9.0 L Hematocrit 31.4 L 29.2 L 28.0 L Urine Color YELLOW Urine Clarity CLOUDY A Urine pH 5.0 Urine Specific 1.014 [place] Urine Ketones TRACE A Urine Nitrite NEGATIVE Urine Bilirubin NEGATIVE Urine Urobilinogen NEGATIVE Urine Leukocyte 3+ H Esterase Urine Microscopic 6 H RBC Urine Microscopic > 182 H WBC Urine Squamous FEW Epithelial Cells Urine Bacteria FEW A Urine Hemoglobin 3+ H Urine Random 76.57 Creatinine Urine Random Sodium 66 Urine Glucose NEGATIVE Urine Total Protein 16.0 H White Blood Count 6.4 Red Blood Count 2.87 L Mean Corpuscular 97.6 Volume Mean Corpuscular 31.4 Hemoglobin Mean Corpuscular 32.1 Hemoglobin Concent Red Cell 19.9 H Distribution Width Platelet Count 107 L Mean Platelet Volume 9.5 Immature 0.500 H Granulocytes % Neutrophils % 77.4 H Lymphocytes % 10.8 L Monocytes % 8.3 Eosinophils % 2.5 Basophils % 0.5 Nucleated Red Blood 0.3 H Cells % Immature 0.030 Granulocytes # Neutrophils # 5.0 Lymphocytes # 0.7 L Monocytes # 0.5 Eosinophils # 0.2 Basophils # 0.0 Nucleated Red Blood 0.0 Cells # Sodium Level 140 Potassium Level 4.3 Chloride Level 108 Carbon Dioxide Level 20 L Anion Gap 12 Blood Urea Nitrogen 51 H Creatinine 1.67 H Est Glomerular Filtrat Rate mL/min Glucose Level 42 #*L Calcium Level 8.9 Test 05/30/18 07:28 05/30/18 07:58 05/30/18 08:21 Bedside Glucose 44 *L 190 180 Exam/Review of Systems Exam Vitals Vital Signs Date Temp Pulse Resp B/P (MAP) Pulse Ox O2 O2 Flow FiO2 Time Delivery Rate 05/30/18 65 08:00 05/30/18 97.7 17 90/55 (67) 90 07:19 05/30/18 Room Air 03:42 Nasal Cannula 05/29/18 10 12:51 Intake and Output 05/29/18 05/29/18 05/30/18 1414:59 22:59 06:59 IntakeIntake Total 250 ml BalanceBalance 250 ml Results Results 24hrs Laboratory Tests Test 05/29/18 18:42 05/29/18 19:30 05/30/18 00:33 05/30/18 05:06 Hemoglobin 10.0 L 9.5 L 9.0 L Hematocrit 31.4 L 29.2 L 28.0 L Urine Color YELLOW Urine Clarity CLOUDY A Urine pH 5.0 Urine Specific 1.014 [place] Urine Ketones TRACE A Urine Nitrite NEGATIVE Urine Bilirubin NEGATIVE Urine Urobilinogen NEGATIVE Urine Leukocyte 3+ H Esterase Urine Microscopic 6 H RBC Urine Microscopic > 182 H WBC Urine Squamous FEW Epithelial Cells Urine Bacteria FEW A Urine Hemoglobin 3+ H Urine Random 76.57 Creatinine Urine Random Sodium 66 Urine Glucose NEGATIVE Urine Total Protein 16.0 H White Blood Count 6.4 Red Blood Count 2.87 L Mean Corpuscular 97.6 Volume Mean Corpuscular 31.4 Hemoglobin Mean Corpuscular 32.1 Hemoglobin Concent Red Cell 19.9 H Distribution Width Platelet Count 107 L Mean Platelet Volume 9.5 Immature 0.500 H Granulocytes % Neutrophils % 77.4 H Lymphocytes % 10.8 L Monocytes % 8.3 Eosinophils % 2.5 Basophils % 0.5 Nucleated Red Blood 0.3 H Cells % Immature 0.030 Granulocytes # Neutrophils # 5.0 Lymphocytes # 0.7 L Monocytes # 0.5 Eosinophils # 0.2 Basophils # 0.0 Nucleated Red Blood 0.0 Cells # Sodium Level 140 Potassium Level 4.3 Chloride Level 108 Carbon Dioxide Level 20 L Anion Gap 12 Blood Urea Nitrogen 51 H Creatinine 1.67 H Est Glomerular Filtrat Rate mL/min Glucose Level 42 #*L Calcium Level 8.9 Test 05/30/18 07:28 05/30/18 07:58 05/30/18 08:21 Bedside Glucose 44 *L 190 180 Medications Medication Current Medications IV Flush (NS 3 ml) 3 ml PER PROTOCOL IV ; Start 05/28/18 at 19:00 Ondansetron HCl (Zofran Inj) 4 mg Q6H PRN IV NAUSEA/VOMITING; Start 05/28/18 at 19:00 Acetaminophen (Tylenol Tab) 650 mg Q6H PRN PO .PAIN 1-3 OR TEMP; Start 05/28/18 at 19:00 Acetaminophen/ Hydrocodone Bitart ([place] (5/325)) 1 tab Q6H PRN PO .MOD PAIN 4- 6; Start 05/28/18 at 19:00 Morphine Sulfate (morphine) 2 mg Q4H PRN IV .SEVERE PAIN 7-10; Start 05/28/18 at 19:00 Docusate Sodium (Colace) 100 mg Q12H PRN PO .CONSTIPATION; Start 05/28/18 at 19:00 Magnesium Hydroxide (Milk Of Mag) 30 ml DAILY PRN PO .CONSTIPATION; Start at 19:00 Lorazepam (Ativan) 0.5 mg Q6H PRN IV ANXIETY; Start 05/28/18 at 19:00 Albuterol/ Ipratropium (Duoneb) 3 ml Q4H RESP THERAPY PRN HHN SHORTNESS OF BREATH; Start 05/28/18 at 19:00 Hydralazine HCl (Apresoline) 10 mg Q6H PRN IV ELEVATED BLOOD PRESSURE; Start 05/28/18 at 19:00 Nitroglycerin (Nitroglycerin (Sl Tab) 0.4 Mg) 1 tab Q5M PRN SL ANGINA; Start 05/28/18 at 19:00 Atorvastatin Calcium (Lipitor) 10 mg QHS PO Last administered on 05/28/18at 23:24; Admin Dose 10 MG; Start 05/28/18 at 21:00 Carvedilol (Coreg) 6.25 mg DAILY PO ; Start 05/29/18 at 09:00 Levothyroxine Sodium (Synthroid) 100 mcg BEFORE BREAKFAST PO Last administered on 05/30/18at 06:02; Admin Dose 100 MCG; Start 05/29/18 at 07:00 Calcium Carbonate (Oyster Shell Calcium) 1.25 gm BID PO Last administered on 05/28/18at 23:24; Admin Dose 1.25 GM; Start 05/28/18 at 21:00 Cyanocobalamin (Vitamin B12) 1,000 mcg DAILY PO ; Start 05/29/18 at 09:00 Multivitamins/ Minerals (Theragran-M) 1 tab DAILY PO ; Start 05/29/18 at 09:00 Pantoprazole (Protonix Iv) 40 mg BID@06,18 IV Last administered on 05/30/18at 06:02; Admin Dose 40 MG; Start 05/28/18 at 19:30 LES SAUNDERS May 30, 2018 10:53
[2018-05-30] MEDS: DEXTROSE 5%-0.45% NACL 1,000 ML IV SCH (11:03)
--- NOTE | 2018-05-30 11:20 | PN ---
Date/Time of Note Date/Time of Note DATE: 05/30/18 TIME: 11:15 Assessment/Plan VTE Prophylaxis Risk score (from [facility])>0 risk: 4 SCD applied (from [facility]): Yes Pharmacological prophylaxis: NA/contraindicated Pharm contraindication: bleeding Assessment/Plan Hospital Course Assessment: GI bleeding/hematochezia/melena. Likely right colon diverticular source EGD 05/29/2018 distal esophagitis/gastritis no active bleeding colonoscopy Colonoscopy 05/11/2018 plan diverticulitis with evidence of recent bleeding Anemia. Anticoagulation Dementia A-fib - CKD CHF Plan: Avoid anticoagulation as risk of rebleeding is very high Unfortunately no therapeutic intervention other than colectomy will decrease this risk We will obtain small bowel series to rule out remote possibility of alternative explanation of bleeding from small bowel Result Diagram: 05/30/18 0506 05/30/18 0506 Results 24hrs Laboratory Tests Test 05/29/18 18:42 05/29/18 19:30 05/30/18 00:33 05/30/18 05:06 Hemoglobin 10.0 L 9.5 L 9.0 L Hematocrit 31.4 L 29.2 L 28.0 L Urine Color YELLOW Urine Clarity CLOUDY A Urine pH 5.0 Urine Specific 1.014 [place] Urine Ketones TRACE A Urine Nitrite NEGATIVE Urine Bilirubin NEGATIVE Urine Urobilinogen NEGATIVE Urine Leukocyte 3+ H Esterase Urine Microscopic 6 H RBC Urine Microscopic > 182 H WBC Urine Squamous FEW Epithelial Cells Urine Bacteria FEW A Urine Hemoglobin 3+ H Urine Random 76.57 Creatinine Urine Random Sodium 66 Urine Glucose NEGATIVE Urine Total Protein 16.0 H White Blood Count 6.4 Red Blood Count 2.87 L Mean Corpuscular 97.6 Volume Mean Corpuscular 31.4 Hemoglobin Mean Corpuscular 32.1 Hemoglobin Concent Red Cell 19.9 H Distribution Width Platelet Count 107 L Mean Platelet Volume 9.5 Immature 0.500 H Granulocytes % Neutrophils % 77.4 H Lymphocytes % 10.8 L Monocytes % 8.3 Eosinophils % 2.5 Basophils % 0.5 Nucleated Red Blood 0.3 H Cells % Immature 0.030 Granulocytes # Neutrophils # 5.0 Lymphocytes # 0.7 L Monocytes # 0.5 Eosinophils # 0.2 Basophils # 0.0 Nucleated Red Blood 0.0 Cells # Sodium Level 140 Potassium Level 4.3 Chloride Level 108 Carbon Dioxide Level 20 L Anion Gap 12 Blood Urea Nitrogen 51 H Creatinine 1.67 H Est Glomerular Filtrat Rate mL/min Glucose Level 42 #*L Calcium Level 8.9 Test 05/30/18 07:28 05/30/18 07:58 05/30/18 08:21 Bedside Glucose 44 *L 190 180 Subjective 24 Hr Interval Summary Free Text/Dictation Course reviewed with nursing staff. All studies reviewed personally. Patient complains of feeling weak. No bowel movements, no overt gas intestinal bleeding. Bleeding scan late last night showed activity in the right lower quadrant consistent with proximal colon Patient was evaluated with colonoscopy 05/11/2018 found plan diverticulitis with evidence of recent bleeding but no active bleeding Given findings most likely examination is diverticular bleed recurrent while anticoagulated We will obtain small bowel series to rule out remote possibility of alternative explanations small intestine. Anticoagulation appears contraindicated, only option to decrease the risk of recurrent bleeding would be a colectomy Exam/Review of Systems Exam Vitals Vital Signs Date Temp Pulse Resp B/P (MAP) Pulse Ox O2 O2 Flow FiO2 Time Delivery Rate 05/30/18 65 08:00 05/30/18 97.7 17 90/55 (67) 90 07:19 05/30/18 Room Air 03:42 Nasal Cannula 05/29/18 10 12:51 Intake and Output 05/29/18 05/29/18 05/30/18 1515:00 23:00 07:00 IntakeIntake Total 250 ml BalanceBalance 250 ml Exam PHYSICAL EXAMINATION: GENERAL: Well developed, poorly nourished, alert & oriented x 3, in no acute distress SKIN: No lesions, no stigmata chronic liver disease, no evidence of bleeding diathesis LYMPHATIC: No palpable lymphadenopathy. HEAD: Normocephalic, atraumatic, no tenderness. EYES: Pupils equal reactive to light and accommodation, full extraocular movements, sclera clear, non-icteric, no discharge. EARS/NOSE AND THROAT: Ears normal, nose normal, oropharynx normal, oral membranes well hydrated without lesions. NECK: Supple, no masses, thyroid normal, JVP within normal limits, carotids normal without bruits. CHEST: Inspection within normal limits. CARDIOVASCULAR: Heart: Regular rate and rhythm, no murmurs, gallops or rubs. Peripheral pulses present within normal limits, no cyanosis, clubbing or edemas. No pulsatile abdominal mass RESPIRATORY: Lungs clear to auscultation and percussion, no wheezing, no rubs GASTROINTESTINAL AND LIVER: Abdomen: Soft, non tenderness, non-distended, no hernias, no masses, no organomegaly, no ascites, no guarding, no rebound tenderness, normoactive bowel sounds. Rectal: Deferred. GENITOURINARY: [Female genitalia within normal limits.] EXTREMITIES: No cyanosis, clubbing or edema. Results Results 24hrs Laboratory Tests Test 05/29/18 18:42 05/29/18 19:30 05/30/18 00:33 05/30/18 05:06 Hemoglobin 10.0 L 9.5 L 9.0 L Hematocrit 31.4 L 29.2 L 28.0 L Urine Color YELLOW Urine Clarity CLOUDY A Urine pH 5.0 Urine Specific 1.014 [place] Urine Ketones TRACE A Urine Nitrite NEGATIVE Urine Bilirubin NEGATIVE Urine Urobilinogen NEGATIVE Urine Leukocyte 3+ H Esterase Urine Microscopic 6 H RBC Urine Microscopic > 182 H WBC Urine Squamous FEW Epithelial Cells Urine Bacteria FEW A Urine Hemoglobin 3+ H Urine Random 76.57 Creatinine Urine Random Sodium 66 Urine Glucose NEGATIVE Urine Total Protein 16.0 H White Blood Count 6.4 Red Blood Count 2.87 L Mean Corpuscular 97.6 Volume Mean Corpuscular 31.4 Hemoglobin Mean Corpuscular 32.1 Hemoglobin Concent Red Cell 19.9 H Distribution Width Platelet Count 107 L Mean Platelet Volume 9.5 Immature 0.500 H Granulocytes % Neutrophils % 77.4 H Lymphocytes % 10.8 L Monocytes % 8.3 Eosinophils % 2.5 Basophils % 0.5 Nucleated Red Blood 0.3 H Cells % Immature 0.030 Granulocytes # Neutrophils # 5.0 Lymphocytes # 0.7 L Monocytes # 0.5 Eosinophils # 0.2 Basophils # 0.0 Nucleated Red Blood 0.0 Cells # Sodium Level 140 Potassium Level 4.3 Chloride Level 108 Carbon Dioxide Level 20 L Anion Gap 12 Blood Urea Nitrogen 51 H Creatinine 1.67 H Est Glomerular Filtrat Rate mL/min Glucose Level 42 #*L Calcium Level 8.9 Test 05/30/18 07:28 05/30/18 07:58 05/30/18 08:21 Bedside Glucose 44 *L 190 180 Medications Medication Current Medications IV Flush (NS 3 ml) 3 ml PER PROTOCOL IV ; Start 05/28/18 at 19:00 Ondansetron HCl (Zofran Inj) 4 mg Q6H PRN IV NAUSEA/VOMITING; Start 05/28/18 at 19:00 Acetaminophen (Tylenol Tab) 650 mg Q6H PRN PO .PAIN 1-3 OR TEMP; Start 05/28/18 at 19:00 Acetaminophen/ Hydrocodone Bitart ([place] (5/325)) 1 tab Q6H PRN PO .MOD PAIN 4- 6; Start 05/28/18 at 19:00 Morphine Sulfate (morphine) 2 mg Q4H PRN IV .SEVERE PAIN 7-10; Start 05/28/18 at 19:00 Docusate Sodium (Colace) 100 mg Q12H PRN PO .CONSTIPATION; Start 05/28/18 at 19:00 Magnesium Hydroxide (Milk Of Mag) 30 ml DAILY PRN PO .CONSTIPATION; Start 05/28/18 at 19:00 Lorazepam (Ativan) 0.5 mg Q6H PRN IV ANXIETY; Start 05/28/18 at 19:00 Albuterol/ Ipratropium (Duoneb) 3 ml Q4H RESP THERAPY PRN HHN SHORTNESS OF BREATH; Start 05/28/18 at 19:00 Hydralazine HCl (Apresoline) 10 mg Q6H PRN IV ELEVATED BLOOD PRESSURE; Start 05/28/18 at 19:00 Nitroglycerin (Nitroglycerin (Sl Tab) 0.4 Mg) 1 tab Q5M PRN SL ANGINA; Start 05/28/18 at 19:00 Atorvastatin Calcium (Lipitor) 10 mg QHS PO Last administered on 05/28/18at 23:24; Admin Dose 10 MG; Start 05/28/18 at 21:00 Carvedilol (Coreg) 6.25 mg DAILY PO ; Start 05/29/18 at 09:00 Levothyroxine Sodium (Synthroid) 100 mcg BEFORE BREAKFAST PO Last administered on 05/30/18at 06:02; Admin Dose 100 MCG; Start 05/29/18 at 07:00 Calcium Carbonate (Oyster Shell Calcium) 1.25 gm BID PO Last administered on 05/28/18at 23:24; Admin Dose 1.25 GM; Start 05/28/18 at 21:00 Cyanocobalamin (Vitamin B12) 1,000 mcg DAILY PO ; Start 05/29/18 at 09:00 Multivitamins/ Minerals (Theragran-M) 1 tab DAILY PO ; Start 05/29/18 at 09:00 Pantoprazole (Protonix Iv) 40 mg BID@06,18 IV Last administered on 05/30/18at 06:02; Admin Dose 40 MG; Start 05/28/18 at 19:30 Dextrose/Sodium Chloride 1,000 ml @ 70 mls/hr [id number] IV Last administered on 05/30/18at 11:03; Admin Dose 70 MLS/HR; Start 05/30/18 at 11:00; Stop 05/31/18 at 07:00 ELVIRA MARK MD May 30, 2018 11:20
[2018-05-30] MEDS ORDERED: BARIUM SULF 2% 450 ML BTL (BERRY SMOOTHIE) PO ONE (11:30)
--- NOTE | 2018-05-30 15:05 | CONS ---
Assessment/Plan Cardiology NYHA: III Heart Failure Type: Chronic Heart Failure Type: Both Assessment/Plan Assessment/Plan (Daily) Assessment 1. Lower GI bleed 2. Severe anemia probably secondary to above 3. History of chronic atrial fibrillation 4. History of severe aortic stenosis status post TAVR 5. Congestive heart failure chronic secondary systolic heart failure and stable 6. Severe cardiomyopathy 7. Sick sinus syndrome status post permanent pacemaker [employer] pacemaker 8. Hypertension 9. Dementia 10. History of CVA Plan: ok to held eliquis given ongoing bleed. patient at increased risk of CVA though AC contraindicated at this time continue other meds Consultation Date/Type/Reason Admit Date/Time May 28, 2018 at 19:26 Type of Consult Cardiology Date/Time of Note DATE: 05/30/18 TIME: 15:02 Hx of Present Illness admitted with LGI bleed, no chest pain, no sob, is weak, Respiratory: no complaints Cardiovascular: no complaints Gastrointestinal: blood Musculoskeletal: no complaints Skin: no complaints Neurologic: no complaints Past Medical History Medical History: congestive heart failure, coronary artery disease, GI bleed, high cholesterol, hypertension, renal disease Home Meds Reported Medications Cyanocobalamin (Vitamin B-12) (Vitamin B-12) 1,000 Mcg Tab.subl, 1000 MCG SL DAILY 05/28/18 Multivitamin/Iron/Folic Acid (Centrum Adults Tablet) 1 Each Tablet, 1 EACH PO DAILY, TAB 05/28/18 Calcium Carbonate* (Calcium Carbonate*) 600 MG Ca Tab, 600 MG PO BID, TAB 05/28/18 Omeprazole* (Omeprazole*) 40 Mg Capsule.dr, 40 MG PO DAILY, #30 CAP 05/28/18 Atorvastatin Calcium (Atorvastatin Calcium) 10 Mg Tablet, 10 MG PO QHS, #30 TAB 05/28/18 Apixaban* (Eliquis*) 2.5 Mg Tablet, 2.5 MG PO DAILY, TAB 05/28/18 Sacubitril/Valsartan (Entresto 49 mg-51 mg Tablet) 1 Each Tablet, 1 EACH PO DAILY, TAB 05/28/18 Carvedilol* (Carvedilol*) 6.25 Mg Tablet, 6.25 MG PO DAILY, #60 TAB 05/28/18 Furosemide* (Furosemide*) 40 Mg Tablet, 40 MG PO DAILY, TAB 05/28/18 Spironolactone* (Aldactone*) 25 Mg Tablet, 25 MG PO DAILY, #30 TAB 05/28/18 Levothyroxine Sodium* (Levothyroxine Sodium*) 100 Mcg Tablet, 100 MCG PO BEFORE BREAKFAST, #30 TAB 05/28/18 Discontinued Reported Medications Apixaban* (Eliquis*) 2.5 Mg Tablet, 2.5 MG PO BID, TAB 02/22/15 Calcium Carbonate ([id number]) 1 Tab Tablet, 1 TAB PO BID, TAB 02/22/15 Atorvastatin Calcium (Atorvastatin Calcium) 10 Mg Tablet, 10 MG PO QHS, #30 TAB 02/22/15 Carvedilol* (Coreg*) 3.125 Mg Tablet, 3.125 MG PO BID, TAB 02/22/15 Levothyroxine Sodium (Levothroid) 100 Mcg Tablet, 100 MCG PO DAILY 02/22/12 Ferrous Sulfate (Iron) 325 Mg Capsr, 325 MG PO TID 02/22/12 Cyanocobalamin (Cyanocobalamin) 1,000 Mcg Tablet, 1000 MCG PO DAILY 02/22/12 Multivitamins/Minerals (Centrum Silver) 1 Tab Tab, 1 TAB PO DAILY 07/04/11 Discontinued Scripts Pantoprazole* (Pantoprazole*) 40 Mg Tabec, 40 MG PO DAILY@06 for 30 Days Prov:ESTELLA DRAKE 02/27/15 Furosemide* (Lasix*) 40 Mg Tab, 40 MG PO DAILY for 30 Days, TAB Prov:ESTELLA DRAKE 02/27/15 Medications Current Medications IV Flush (NS 3 ml) 3 ml PER PROTOCOL IV ; Start 05/28/18 at 19:00 Ondansetron HCl (Zofran Inj) 4 mg Q6H PRN IV NAUSEA/VOMITING; Start 05/28/18 at 19:00 Acetaminophen (Tylenol Tab) 650 mg Q6H PRN PO .PAIN 1-3 OR TEMP; Start 05/28/18 at 19:00 Acetaminophen/ Hydrocodone Bitart ([place] (5/325)) 1 tab Q6H PRN PO .MOD PAIN 4- 6; Start 05/28/18 at 19:00 Morphine Sulfate (morphine) 2 mg Q4H PRN IV .SEVERE PAIN 7-10; Start 05/28/18 at 19:00 Docusate Sodium (Colace) 100 mg Q12H PRN PO .CONSTIPATION; Start 05/28/18 at 19:00 Magnesium Hydroxide (Milk Of Mag) 30 ml DAILY PRN PO .CONSTIPATION; Start 05/28/18 at 19:00 Lorazepam (Ativan) 0.5 mg Q6H PRN IV ANXIETY; Start 05/28/18 at 19:00 Albuterol/ Ipratropium (Duoneb) 3 ml Q4H RESP THERAPY PRN HHN SHORTNESS OF BREATH; Start 05/28/18 at 19:00 Hydralazine HCl (Apresoline) 10 mg Q6H PRN IV ELEVATED BLOOD PRESSURE; Start 05/28/18 at 19:00 Nitroglycerin (Nitroglycerin (Sl Tab) 0.4 Mg) 1 tab Q5M PRN SL ANGINA; Start 05/28/18 at 19:00 Atorvastatin Calcium (Lipitor) 10 mg QHS PO Last administered on 05/28/18at 23:24; Admin Dose 10 MG; Start 05/28/18 at 21:00 Carvedilol (Coreg) 6.25 mg DAILY PO ; Start 05/29/18 at 09:00 Levothyroxine Sodium (Synthroid) 100 mcg BEFORE BREAKFAST PO Last administered on 05/30/18at 06:02; Admin Dose 100 MCG; Start 05/29/18 at 07:00 Calcium Carbonate (Oyster Shell Calcium) 1.25 gm BID PO Last administered on 05/28/18at 23:24; Admin Dose 1.25 GM; Start 05/28/18 at 21:00 Cyanocobalamin (Vitamin B12) 1,000 mcg DAILY PO ; Start 05/29/18 at 09:00 Multivitamins/ Minerals (Theragran-M) 1 tab DAILY PO ; Start 05/29/18 at 09:00 Pantoprazole (Protonix Iv) 40 mg BID@06,18 IV Last administered on 05/30/18at 06:02; Admin Dose 40 MG; Start 05/28/18 at 19:30 Dextrose/Sodium Chloride 1,000 ml @ 70 mls/hr [id number] IV Last administered on 05/30/18at 11:03; Admin Dose 70 MLS/HR; Start 05/30/18 at 11:00; Stop 05/31/18 at 07:00 Allergies: Coded Allergies: No Known Allergy (Unverified , 05/28/18) Past Surgical History Past Surgical Hx: no surgical history Social History Alcohol Use: none Smoking Status: Never smoker Drug Use: none Exam/Review of Systems Vital Signs Vitals Vital Signs Date Temp Pulse Resp B/P (MAP) Pulse Ox O2 O2 Flow FiO2 Time Delivery Rate 05/30/18 60 12:00 05/30/18 97.8 17 104/57 98 11:16 (73) 05/30/18 Room Air 03:42 Nasal Cannula 05/29/18 10 12:51 Intake and Output 05/29/18 05/29/18 05/30/18 1515:00 23:00 07:00 IntakeIntake Total 250 ml BalanceBalance 250 ml Exam Constitutional: frail Neck: supple Respiratory: clear to auscultation Cardiovascular: regular rate and rhythm Gastrointestinal: soft Musculoskeletal: muscle weakness Extremities: normal pulses Labs Result Diagram: 05/30/18 1310 05/30/18 0506 Results 24hrs Laboratory Tests Test 05/29/18 18:42 05/29/18 19:30 05/30/18 00:33 05/30/18 05:06 Hemoglobin 10.0 L 9.5 L 9.0 L Hematocrit 31.4 L 29.2 L 28.0 L Urine Color YELLOW Urine Clarity CLOUDY A Urine pH 5.0 Urine Specific 1.014 [place] Urine Ketones TRACE A Urine Nitrite NEGATIVE Urine Bilirubin NEGATIVE Urine Urobilinogen NEGATIVE Urine Leukocyte 3+ H Esterase Urine Microscopic 6 H RBC Urine Microscopic > 182 H WBC Urine Squamous FEW Epithelial Cells Urine Bacteria FEW A Urine Hemoglobin 3+ H Urine Random 76.57 Creatinine Urine Random Sodium 66 Urine Glucose NEGATIVE Urine Total Protein 16.0 H White Blood Count 6.4 Red Blood Count 2.87 L Mean Corpuscular 97.6 Volume Mean Corpuscular 31.4 Hemoglobin Mean Corpuscular 32.1 Hemoglobin Concent Red Cell 19.9 H Distribution Width Platelet Count 107 L Mean Platelet Volume 9.5 Immature 0.500 H Granulocytes % Neutrophils % 77.4 H Lymphocytes % 10.8 L Monocytes % 8.3 Eosinophils % 2.5 Basophils % 0.5 Nucleated Red Blood 0.3 H Cells % Immature 0.030 Granulocytes # Neutrophils # 5.0 Lymphocytes # 0.7 L Monocytes # 0.5 Eosinophils # 0.2 Basophils # 0.0 Nucleated Red Blood 0.0 Cells # Sodium Level 140 Potassium Level 4.3 Chloride Level 108 Carbon Dioxide Level 20 L Anion Gap 12 Blood Urea Nitrogen 51 H Creatinine 1.67 H Est Glomerular Filtrat Rate mL/min Glucose Level 42 #*L Calcium Level 8.9 Test 05/30/18 07:28 05/30/18 07:58 05/30/18 08:21 05/30/18 13:10 Bedside Glucose 44 *L 190 180 Hemoglobin 9.2 L Hematocrit 29.2 L Medications Medications Current Medications IV Flush (NS 3 ml) 3 ml PER PROTOCOL IV ; Start 05/28/18 at 19:00 Ondansetron HCl (Zofran Inj) 4 mg Q6H PRN IV NAUSEA/VOMITING; Start 05/28/18 at 19:00 Acetaminophen (Tylenol Tab) 650 mg Q6H PRN PO .PAIN 1-3 OR TEMP; Start 05/28/18 at 19:00 Acetaminophen/ Hydrocodone Bitart ([place] (5/325)) 1 tab Q6H PRN PO .MOD PAIN 4- 6; Start 05/28/18 at 19:00 Morphine Sulfate (morphine) 2 mg Q4H PRN IV .SEVERE PAIN 7-10; Start 05/28/18 at 19:00 Docusate Sodium (Colace) 100 mg Q12H PRN PO .CONSTIPATION; Start 05/28/18 at 19:00 Magnesium Hydroxide (Milk Of Mag) 30 ml DAILY PRN PO .CONSTIPATION; Start 05/28/18 at 19:00 Lorazepam (Ativan) 0.5 mg Q6H PRN IV ANXIETY; Start 05/28/18 at 19:00 Albuterol/ Ipratropium (Duoneb) 3 ml Q4H RESP THERAPY PRN HHN SHORTNESS OF BREATH; Start 05/28/18 at 19:00 Hydralazine HCl (Apresoline) 10 mg Q6H PRN IV ELEVATED BLOOD PRESSURE; Start 05/28/18 at 19:00 Nitroglycerin (Nitroglycerin (Sl Tab) 0.4 Mg) 1 tab Q5M PRN SL ANGINA; Start 05/28/18 at 19:00 Atorvastatin Calcium (Lipitor) 10 mg QHS PO Last administered on 05/28/18at 23:24; Admin Dose 10 MG; Start 05/28/18 at 21:00 Carvedilol (Coreg) 6.25 mg DAILY PO ; Start 05/29/18 at 09:00 Levothyroxine Sodium (Synthroid) 100 mcg BEFORE BREAKFAST PO Last administered on 05/30/18at 06:02; Admin Dose 100 MCG; Start 05/29/18 at 07:00 Calcium Carbonate (Oyster Shell Calcium) 1.25 gm BID PO Last administered on 05/28/18at 23:24; Admin Dose 1.25 GM; Start 05/28/18 at 21:00 Cyanocobalamin (Vitamin B12) 1,000 mcg DAILY PO ; Start 05/29/18 at 09:00 Multivitamins/ Minerals (Theragran-M) 1 tab DAILY PO ; Start 05/29/18 at 09:00 Pantoprazole (Protonix Iv) 40 mg BID@06,18 IV Last administered on 05/30/18at 06:02; Admin Dose 40 MG; Start 05/28/18 at 19:30 Dextrose/Sodium Chloride 1,000 ml @ 70 mls/hr [id number] IV Last administered on 05/30/18at 11:03; Admin Dose 70 MLS/HR; Start 05/30/18 at 11:00; Stop 05/31/18 at 07:00 ANNA KHAN MD May 30, 2018 15:05
[2018-05-30] MEDS: ATORVASTATIN 10 MG TAB PO SCH (21:00)
[2018-05-30] MEDS ORDERED: VITAMIN A & D 5 GM OINT PACKET TOP ONE (21:37)
[2018-05-31] VITALS (18 sets, daily range): BP systolic 77–126; BP diastolic 41–60; PULSE 59–76; RESP 16–19
[2018-05-31] MEDS: DEXTROSE 5%-0.45% NACL 1,000 ML IV SCH (03:59)
[2018-05-31] MEDS: PANTOPRAZOLE 40 MG INJ IV SCH ×2 (06:59→17:29)
[2018-05-31] MEDS: CYANOCOBALAMIN 500 MCG TAB PO SCH (09:00)
[2018-05-31] MEDS: MULTIVITAMINS/MINERALS TAB PO SCH (09:00)
[2018-05-31] MEDS: CALCIUM CARBONATE 1.25 GM TAB PO SCH ×2 (09:00→20:52)
[2018-05-31] MEDS: LEVOTHYROXINE 100 MCG TAB PO SCH (09:41)
--- NOTE | 2018-05-31 09:57 | PN ---
Date/Time of Note Date/Time of Note DATE: 05/31/18 TIME: 09:57 Assessment/Plan VTE Prophylaxis Risk score (from Ns)>0 risk: 4 SCD applied (from Ns): Yes Pharmacological prophylaxis: NA/contraindicated Pharm contraindication: bleeding Lines/Catheters [facility] Peripheral IV Urinary Cath still in place: No Assessment/Plan Hospital Course S: Patient still with some occasional dark stools since yesterday. Seen by cardiology and GI teams yesterday. Tolerating diet. O: VS - see below PHYSICAL EXAMINATION: GENERAL: lying in bed, NAD HEENT: Pupils equal, round, reactive to light. Extraocular muscles intact. NECK: Supple. No thyromegaly. LUNGS: Clear to auscultation bilaterally. CARDIOVASCULAR: S1 and S2 heard. No rubs or gallops. ABDOMEN: Soft, nontender, nondistended. Normal bowel sounds. No rebound or guarding. MUSCULOSKELETAL: No lower extremity edema bilaterally. NEUROLOGIC: No focal deficits. ASSESSMENT AND PLAN: 82-year-old female coming in with history of paroxysmal atrial fibrillation on Eliquis, transcatheter aortic valve replacement, congestive heart failure, recent lower gastrointestinal bleeding 2 weeks ago, hospitalized for that, status post colonoscopy with internal hemorrhoids and diverticulosis, presents with continued lower gastrointestinal bleeding and anemia, hemoglobin 5.9. 1. Anemia, lower gastrointestinal bleeding-on presentation the hemoglobin 5.9. -Status post 2 units of PRBC transfusion 3 days ago, hemoglobin since has been improved. - Monitor CBC every morning and signs for further lower GI bleeding - Continue to hold all anticoagulants including Eliquis-Per cardiology it is ok to hold eliquis given ongoing bleed, although per them patient at increased risk of CVA though AC contraindicated at this time - Per GI team recommendations -given positive nuclear tagged RBC scan results (likely right colon diverticular source), they feel no therapeutic intervention other than colectomy will decrease future risk of lower GI [id number] small bowel series as recommended by them to rule out the possibility of any other source of bleeding such as small intestine - Continue Protonix IV BID for now 2. History of congestive heart failure. BNP 10,000 this admission. - Continue to monitor for now. - Continue current cardiac medications cautiously -although we have been holding Entresto since admission secondary to renal insufficiency 3. High cholesterol. -Continue statin 4. History of transcatheter aortic valve replacement (TAVR). - Continue to monitor heart rate. - Carefully continue current cardiac medications per cardiology recommendations 5. History of paroxysmal atrial fibrillation. Presently rate controlled - again, continue to monitor heart rate on telemetry. -Again, holding off on anticoagulation given her gastrointestinal bleeding presently right now. 6. SHANEKA -slowly improving with intermittent doses of IV fluids cautiously given given her CHF history -Monitor for now, still holding Entresto as well 7. Gastrointestinal prophylaxis. Again, continue on PPI IV b.i.d. 8. Deep venous thrombosis prophylaxis. SCDs -avoid anticoagulants given GI bleeding Result Diagram: 05/31/1817 05/31/1817 Results 24hrs Laboratory Tests Test 05/30/18 13:10 05/30/18 19:09 05/31/18 00:37 05/31/18 05:17 Hemoglobin 9.2 L 9.4 L 8.3 L 8.7 L Hematocrit 29.2 L 28.9 L 25.4 L 26.9 L White Blood Count 6.3 Red Blood Count 2.79 L Mean Corpuscular 96.4 Volume Mean Corpuscular 31.2 Hemoglobin Mean Corpuscular 32.3 Hemoglobin Concent Red Cell 18.6 H Distribution Width Platelet Count 93 L Mean Platelet Volume 9.5 Immature 0.500 H Granulocytes % Neutrophils % 74.0 Lymphocytes % 11.4 L Monocytes % 11.1 H Eosinophils % 2.7 Basophils % 0.3 Nucleated Red Blood 0.3 H Cells % Immature 0.030 Granulocytes # Neutrophils # 4.7 Lymphocytes # 0.7 L Monocytes # 0.7 Eosinophils # 0.2 Basophils # 0.0 Nucleated Red Blood 0.0 Cells # Sodium Level 137 Potassium Level 3.6 Chloride Level 108 Carbon Dioxide Level 22 Anion Gap 7 Blood Urea Nitrogen 39 #H Creatinine 1.34 H Est Glomerular Filtrat Rate mL/min Glucose Level 79 Calcium Level 8.6 Exam/Review of Systems Exam Vitals Vital Signs Date Temp Pulse Resp B/P (MAP) Pulse Ox O2 O2 Flow FiO2 Time Delivery Rate 05/31/18 59 93/54 (67) 09:41 05/31/18 98.3 17 99 07:22 05/30/18 Room Air 03:42 Nasal Cannula 05/29/18 10 12:51 Intake and Output 05/30/18 05/30/18 05/31/18 1414:59 22:59 06:59 IntakeIntake Total 450 ml 1100 ml BalanceBalance 450 ml 1100 ml Results Results 24hrs Laboratory Tests Test 05/30/18 13:10 05/30/18 19:09 05/31/18 00:37 05/31/18 05:17 Hemoglobin 9.2 L 9.4 L 8.3 L 8.7 L Hematocrit 29.2 L 28.9 L 25.4 L 26.9 L White Blood Count 6.3 Red Blood Count 2.79 L Mean Corpuscular 96.4 Volume Mean Corpuscular 31.2 Hemoglobin Mean Corpuscular 32.3 Hemoglobin Concent Red Cell 18.6 H Distribution Width Platelet Count 93 L Mean Platelet Volume 9.5 Immature 0.500 H Granulocytes % Neutrophils % 74.0 Lymphocytes % 11.4 L Monocytes % 11.1 H Eosinophils % 2.7 Basophils % 0.3 Nucleated Red Blood 0.3 H Cells % Immature 0.030 Granulocytes # Neutrophils # 4.7 Lymphocytes # 0.7 L Monocytes # 0.7 Eosinophils # 0.2 Basophils # 0.0 Nucleated Red Blood 0.0 Cells # Sodium Level 137 Potassium Level 3.6 Chloride Level 108 Carbon Dioxide Level 22 Anion Gap 7 Blood Urea Nitrogen 39 #H Creatinine 1.34 H Est Glomerular Filtrat Rate mL/min Glucose Level 79 Calcium Level 8.6 Medications Medication Current Medications IV Flush (NS 3 ml) 3 ml PER PROTOCOL IV ; Start 05/28/18 at 19:00 Ondansetron HCl (Zofran Inj) 4 mg Q6H PRN IV NAUSEA/VOMITING; Start 05/28/18 at 19:00 Acetaminophen (Tylenol Tab) 650 mg Q6H PRN PO .PAIN 1-3 OR TEMP; Start 05/28/18 at 19:00 Acetaminophen/ Hydrocodone Bitart ([place] (5/325)) 1 tab Q6H PRN PO .MOD PAIN 4- 6; Start 05/28/18 at 19:00 Morphine Sulfate (morphine) 2 mg Q4H PRN IV .SEVERE PAIN 7-10; Start 05/28/18 at 19:00 Docusate Sodium (Colace) 100 mg Q12H PRN PO .CONSTIPATION; Start 05/28/18 at 19:00 Magnesium Hydroxide (Milk Of Mag) 30 ml DAILY PRN PO .CONSTIPATION; Start 05/28/18 at 19:00 Lorazepam (Ativan) 0.5 mg Q6H PRN IV ANXIETY; Start 05/28/18 at 19:00 Albuterol/ Ipratropium (Duoneb) 3 ml Q4H RESP THERAPY PRN HHN SHORTNESS OF BREATH; Start 05/28/18 at 19:00 Hydralazine HCl (Apresoline) 10 mg Q6H PRN IV ELEVATED BLOOD PRESSURE; Start 05/28/18 at 19:00 Nitroglycerin (Nitroglycerin (Sl Tab) 0.4 Mg) 1 tab Q5M PRN SL ANGINA; Start 05/28/18 at 19:00 Atorvastatin Calcium (Lipitor) 10 mg QHS PO Last administered on 05/28/18at 23:24; Admin Dose 10 MG; Start 05/28/18 at 21:00 Carvedilol (Coreg) 6.25 mg DAILY PO ; Start 05/29/18 at 09:00 Levothyroxine Sodium (Synthroid) 100 mcg BEFORE BREAKFAST PO Last administered on 05/31/18at 09:41; Admin Dose 100 MCG; Start 05/29/18 at 07:00 Calcium Carbonate (Oyster Shell Calcium) 1.25 gm BID PO Last administered on 05/28/18 23:24; Admin Dose 1.25 GM; Start 05/28/18 at 21:00 Cyanocobalamin (Vitamin B12) 1,000 mcg DAILY PO ; Start 05/29/18 at 09:00 Multivitamins/ Minerals (Theragran-M) 1 tab DAILY PO ; Start 05/29/18 at 09:00 Pantoprazole (Protonix Iv) 40 mg BID@18 IV Last administered on 05/31/18at 06:59; Admin Dose 40 MG; Start 05/28/18 at 19:30 LES SAUNDERS May 31, 2018 09:57
--- NOTE | 2018-05-31 10:37 | PN ---
Date/Time of Note Date/Time of Note DATE: 05/31/18 TIME: 10:36 Assessment/Plan VTE Prophylaxis Risk score (from Ns)>0 risk: 4 SCD applied (from Ns): Yes Pharmacological prophylaxis: other Lines/Catheters [facility] Peripheral IV Urinary Cath still in place: No Assessment/Plan Hospital Course renal follow up all noted no significant event overnight d/w Dr Landis no fever, chills, hematuria or melena PHYSICAL EXAMINATION: HEENT: Head is normocephalic. NECK: Supple. HEART: Regular rate. LUNGS: Show diminished breath sounds at the base. ABDOMEN: Soft, nontender to palpation without rebound or guarding. EXTREMITIES: Negative for clubbing, cyanosis. Trace edema. DERMATOLOGIC: No rashes. MUSCULOSKELETAL: No joint effusion. NEUROLOGIC: No focal deficits. The patient's medications have been reviewed. IMAGING STUDIES: Reviewed. ASSESSMENT AND PLAN: This is an 82-year-old female who presents with: 1. Nonoliguric chronic kidney disease with previous baseline creatinine of 1.5 to 2 mg/dL. Etiology of SHANEKA is likely secondary to hemodynamics from diuretic use. The patient's renal function has improved after gentle course of IV fluids. At this point, we will continue to monitor closely. We would continue to hold diuretic therapy. Defer any CHARIS inhibitor or ARB at this time. 2. Mineral bone disorder, monitor calcium and phosphatase levels. 3. Anemia. Monitor H and H levels. The patient is status post blood transfusion. A GI consult has been placed. The patient is pending EGD. 4. Atrial fibrillation. Continue medical management. Holding anticoagulation in setting of possible gastrointestinal bleed. 5. History of congestive heart failure. The patient appears compensated. We will continue to monitor. If renal function remains stable, may reintroduce diuretic therapy. 6. History of dementia. Continue medical management. 7. High potassium. Continue Synthroid. 8. Dyslipidemia. Continue statin therapy. Result Diagram: 05/31/1851605/31/18516 Results 24hrs Laboratory Tests Test 05/30/18 13:10 05/30/18 19:09 05/31/18 00:37 05/31/18 05:17 Hemoglobin 9.2 L 9.4 L 8.3 L 8.7 L Hematocrit 29.2 L 28.9 L 25.4 L 26.9 L White Blood Count 6.3 Red Blood Count 2.79 L Mean Corpuscular 96.4 Volume Mean Corpuscular 31.2 Hemoglobin Mean Corpuscular 32.3 Hemoglobin Concent Red Cell 18.6 H Distribution Width Platelet Count 93 L Mean Platelet Volume 9.5 Immature 0.500 H Granulocytes % Neutrophils % 74.0 Lymphocytes % 11.4 L Monocytes % 11.1 H Eosinophils % 2.7 Basophils % 0.3 Nucleated Red Blood 0.3 H Cells % Immature 0.030 Granulocytes # Neutrophils # 4.7 Lymphocytes # 0.7 L Monocytes # 0.7 Eosinophils # 0.2 Basophils # 0.0 Nucleated Red Blood 0.0 Cells # Sodium Level 137 Potassium Level 3.6 Chloride Level 108 Carbon Dioxide Level 22 Anion Gap 7 Blood Urea Nitrogen 39 #H Creatinine 1.34 H Est Glomerular Filtrat Rate mL/min Glucose Level 79 Calcium Level 8.6 Exam/Review of Systems Exam Vitals Vital Signs Date Temp Pulse Resp B/P (MAP) Pulse Ox O2 O2 Flow FiO2 Time Delivery Rate 05/31/18 59 93/54 (67) 09:41 05/31/18 98.3 17 99 07:22 05/30/18 Room Air 03:42 Nasal Cannula 05/29/18 10 12:51 Intake and Output 05/30/18 05/30/18 05/31/18 1515:00 23:00 07:00 IntakeIntake Total 450 ml 1100 ml BalanceBalance 450 ml 1100 ml Results Results 24hrs Laboratory Tests Test 05/30/18 13:10 05/30/18 19:09 05/31/18 00:37 05/31/18 05:17 Hemoglobin 9.2 L 9.4 L 8.3 L 8.7 L Hematocrit 29.2 L 28.9 L 25.4 L 26.9 L White Blood Count 6.3 Red Blood Count 2.79 L Mean Corpuscular 96.4 Volume Mean Corpuscular 31.2 Hemoglobin Mean Corpuscular 32.3 Hemoglobin Concent Red Cell 18.6 H Distribution Width Platelet Count 93 L Mean Platelet Volume 9.5 Immature 0.500 H Granulocytes % Neutrophils % 74.0 Lymphocytes % 11.4 L Monocytes % 11.1 H Eosinophils % 2.7 Basophils % 0.3 Nucleated Red Blood 0.3 H Cells % Immature 0.030 Granulocytes # Neutrophils # 4.7 Lymphocytes # 0.7 L Monocytes # 0.7 Eosinophils # 0.2 Basophils # 0.0 Nucleated Red Blood 0.0 Cells # Sodium Level 137 Potassium Level 3.6 Chloride Level 108 Carbon Dioxide Level 22 Anion Gap 7 Blood Urea Nitrogen 39 #H Creatinine 1.34 H Est Glomerular Filtrat Rate mL/min Glucose Level 79 Calcium Level 8.6 Medications Medication Current Medications IV Flush (NS 3 ml) 3 ml PER PROTOCOL IV ; Start 05/28/18 at 19:00 Ondansetron HCl (Zofran Inj) 4 mg Q6H PRN IV NAUSEA/VOMITING; Start 05/28/18 at 19:00 Acetaminophen (Tylenol Tab) 650 mg Q6H PRN PO .PAIN 1-3 OR TEMP; Start 05/28/18 at 19:00 Acetaminophen/ Hydrocodone Bitart ([place] (5/325)) 1 tab Q6H PRN PO .MOD PAIN 4- 6; Start 05/28/18 at 19:00 Morphine Sulfate (morphine) 2 mg Q4H PRN IV .SEVERE PAIN 7-10; Start 05/28/18 at 19:00 Docusate Sodium (Colace) 100 mg Q12H PRN PO .CONSTIPATION; Start 05/28/18 at 19:00 Magnesium Hydroxide (Milk Of Mag) 30 ml DAILY PRN PO .CONSTIPATION; Start 05/28/18 at 19:00 Lorazepam (Ativan) 0.5 mg Q6H PRN IV ANXIETY; Start 05/28/18 at 19:00 Albuterol/ Ipratropium (Duoneb) 3 ml Q4H RESP THERAPY PRN HHN SHORTNESS OF BREATH; Start 05/28/18 at 19:00 Hydralazine HCl (Apresoline) 10 mg Q6H PRN IV ELEVATED BLOOD PRESSURE; Start 05/28/18 at 19:00 Nitroglycerin (Nitroglycerin (Sl Tab) 0.4 Mg) 1 tab Q5M PRN SL ANGINA; Start 05/28/18 at 19:00 Atorvastatin Calcium (Lipitor) 10 mg QHS PO Last administered on 05/28/18at 23:24; Admin Dose 10 MG; Start 05/28/18 at 21:00 Carvedilol (Coreg) 6.25 mg DAILY PO ; Start 05/29/18 at 09:00 Levothyroxine Sodium (Synthroid) 100 mcg BEFORE BREAKFAST PO Last administered on 05/31/18at 09:41; Admin Dose 100 MCG; Start 05/29/18 at 07:00 Calcium Carbonate (Oyster Shell Calcium) 1.25 gm BID PO Last administered on 05/28/18at 23:24; Admin Dose 1.25 GM; Start 05/28/18 at 21:00 Cyanocobalamin (Vitamin B12) 1,000 mcg DAILY PO ; Start 05/29/18 at 09:00 Multivitamins/ Minerals (Theragran-M) 1 tab DAILY PO ; Start 05/29/18 at 09:00 Pantoprazole (Protonix Iv) 40 mg BID@06,18 IV Last administered on 05/31/18at 06:59; Admin Dose 40 MG; Start 05/28/18 at 19:30 RJ DEVINE DO May 31, 2018 10:37
--- NOTE | 2018-05-31 16:44 | CONS ---
Assessment/Plan Cardiology NYHA: III Heart Failure Type: Chronic Heart Failure Type: Both Assessment/Plan Hospital Course (Demo Recall) 1. GI bleed 2. Severe anemia probably secondary to above 3. History of chronic atrial fibrillation 4. History of severe aortic stenosis status post TAVR 5. Congestive heart failure chronic secondary systolic heart failure and stable 6. Severe cardiomyopathy 7. Sick sinus syndrome status post permanent pacemaker [employer] pace maker 8. Hypertension 9. Dementia 10. History of CVA -Patient with recurrent GI bleed. Anticoagulation will be held at the current time -Blood pressure on the lower side, asymptomatic, would hold beta-shelley. -Dr. Garcia to resume care 06/01/2018 Consultation Date/Type/Reason Admit Date/Time May 28, 2018 at 19:26 Initial Consult Date 05/29/18 Type of Consult Cardiology Date/Time of Note DATE: 05/31/18 TIME: 16:42 24 HR Interval Summary Free Text/Dictation Denies chest pain, shortness of breath, palpitations or dizziness Exam/Review of Systems Vital Signs Vitals Vital Signs Date Temp Pulse Resp B/P (MAP) Pulse Ox O2 O2 Flow FiO2 Time Delivery Rate 05/31/18 60 16:08 05/31/18 98.0 19 126/60 98 15:34 (82) 05/30/18 Room Air 03:42 Nasal Cannula 05/29/18 10 12:51 Intake and Output 05/30/18 05/30/18 05/31/18 1515:00 23:00 07:00 IntakeIntake Total 450 ml 1100 ml BalanceBalance 450 ml 1100 ml Exam Constitutional: alert, oriented (No apparent distress) Respiratory: other (Coarse breath sounds bilaterally, no wheezing) Cardiovascular: regular rate and rhythm, systolic murmur Gastrointestinal: soft, non-tender, bowel sounds Extremities: other (No significant edema) Labs Result Diagram: 05/31/18 1328 05/31/18 0517 Results 24hrs Laboratory Tests Test 05/30/18 19:09 05/31/18 00:37 05/31/18 05:17 05/31/18 13:28 Hemoglobin 9.4 L 8.3 L 8.7 L 9.9 L Hematocrit 28.9 L 25.4 L 26.9 L 30.2 L White Blood Count 6.3 Red Blood Count 2.79 L Mean Corpuscular 96.4 Volume Mean Corpuscular 31.2 Hemoglobin Mean Corpuscular 32.3 Hemoglobin Concent Red Cell 18.6 H Distribution Width Platelet Count 93 L Mean Platelet Volume 9.5 Immature 0.500 H Granulocytes % Neutrophils % 74.0 Lymphocytes % 11.4 L Monocytes % 11.1 H Eosinophils % 2.7 Basophils % 0.3 Nucleated Red Blood 0.3 H Cells % Immature 0.030 Granulocytes # Neutrophils # 4.7 Lymphocytes # 0.7 L Monocytes # 0.7 Eosinophils # 0.2 Basophils # 0.0 Nucleated Red Blood 0.0 Cells # Sodium Level 137 Potassium Level 3.6 Chloride Level 108 Carbon Dioxide Level 22 Anion Gap 7 Blood Urea Nitrogen 39 #H Creatinine 1.34 H Est Glomerular Filtrat Rate mL/min Glucose Level 79 Calcium Level 8.6 Medications Medications Current Medications IV Flush (NS 3 ml) 3 ml PER PROTOCOL IV ; Start 05/28/18 at 19:00 Ondansetron HCl (Zofran Inj) 4 mg Q6H PRN IV NAUSEA/VOMITING; Start 05/28/18 at 19:00 Acetaminophen (Tylenol Tab) 650 mg Q6H PRN PO .PAIN 1-3 OR TEMP; Start 05/28/18 at 19:00 Acetaminophen/ Hydrocodone Bitart ([place] (5/325)) 1 tab Q6H PRN PO .MOD PAIN 4- 6; Start 05/28/18 at 19:00 Morphine Sulfate (morphine) 2 mg Q4H PRN IV .SEVERE PAIN 7-10; Start 05/28/18 at 19:00 Docusate Sodium (Colace) 100 mg Q12H PRN PO .CONSTIPATION; Start 05/28/18 at 19:00 Magnesium Hydroxide (Milk Of Mag) 30 ml DAILY PRN PO .CONSTIPATION; Start 05/28/18 at 19:00 Lorazepam (Ativan) 0.5 mg Q6H PRN IV ANXIETY; Start 05/28/18 at 19:00 Albuterol/ Ipratropium (Duoneb) 3 ml Q4H RESP THERAPY PRN HHN SHORTNESS OF BREATH; Start 05/28/18 at 19:00 Hydralazine HCl (Apresoline) 10 mg Q6H PRN IV ELEVATED BLOOD PRESSURE; Start 05/28/18 at 19:00 Nitroglycerin (Nitroglycerin (Sl Tab) 0.4 Mg) 1 tab Q5M PRN SL ANGINA; Start 05/28/18 at 19:00 Atorvastatin Calcium (Lipitor) 10 mg QHS PO Last administered on 05/28/18at 23:24; Admin Dose 10 MG; Start 05/28/18 at 21:00 Carvedilol (Coreg) 6.25 mg DAILY PO ; Start 05/29/18 at 09:00 Levothyroxine Sodium (Synthroid) 100 mcg BEFORE BREAKFAST PO Last administered on 05/31/18at 09:41; Admin Dose 100 MCG; Start 05/29/18 at 07:00 Calcium Carbonate (Oyster Shell Calcium) 1.25 gm BID PO Last administered on 05/28/18at 23:24; Admin Dose 1.25 GM; Start 05/28/18 at 21:00 Cyanocobalamin (Vitamin B12) 1,000 mcg DAILY PO ; Start 05/29/18 at 09:00 Multivitamins/ Minerals (Theragran-M) 1 tab DAILY PO ; Start 05/29/18 at 09:00 Pantoprazole (Protonix Iv) 40 mg BID@,18 IV Last administered on 05/31/18at 06:59; Admin Dose 40 MG; Start 05/28/18 at 19:30 Jerry Michelle DO May 31, 2018 16:44
[2018-05-31] MEDS: ATORVASTATIN 10 MG TAB PO SCH (20:52)
[2018-05-31] MEDS ORDERED: SOD CHLORIDE 0.9% 250 ML IV ONE (23:30)
[2018-06-01] VITALS (13 sets, daily range): BP systolic 89–111; BP diastolic 49–58; PULSE 60–64; RESP 16–18
[2018-06-01] MEDS ORDERED: SOD CHLORIDE 0.9% 250 ML IV ONE
[2018-06-01] MEDS: LEVOTHYROXINE 100 MCG TAB PO SCH (07:00)
[2018-06-01] MEDS: PANTOPRAZOLE 40 MG INJ IV SCH ×2 (07:00→17:26)
[2018-06-01] MEDS: CALCIUM CARBONATE 1.25 GM TAB PO SCH ×2 (08:18→20:36)
[2018-06-01] MEDS: MULTIVITAMINS/MINERALS TAB PO SCH (08:18)
[2018-06-01] MEDS: CYANOCOBALAMIN 500 MCG TAB PO SCH (08:18)
--- NOTE | 2018-06-01 09:06 | PN ---
DATE: 06/01/2018 SUBJECTIVE: The patient is stable. No events overnight. OBJECTIVE: VITAL SIGNS: Blood pressure is 93/54, pulse 62, respirations 16, temperature 97.6. HEENT: Head is normocephalic. NECK: Supple. HEART: Regular rate. LUNGS: Show diminished breath sounds at the base. ABDOMEN: Soft, nontender to palpation without rebound or guarding. EXTREMITIES: Negative for clubbing, cyanosis, no edema. DERMATOLOGIC: No rashes. MUSCULOSKELETAL: No joint effusion. NEUROLOGIC: No change in exam. MEDICATIONS: Reviewed. LABORATORY DATA: From 06/01/2018 was reviewed. ASSESSMENT AND PLAN: 1. Nonoliguric acute kidney injury with previous baseline creatinine of 1.5 to 1.2 mg/dL. Etiology of acute kidney injury is secondary to hemodynamics, from diuretic use. Renal function has improved with IV fluids. At this point, continue current treatment plan, supportive care, renally dose all me dicines. 2. Chronic kidney disease. The patient has noted atrophic kidney. The patient is currently in acut e kidney injury as stated above. Continue current medical management. Continue current treatment pl an. 3. Mineral bone disorder, monitor calcium and phosphorus levels. 4. Anemia. Continue to monitor hemoglobin and hematocrit levels. The patient had episode of GI ble ed and antiplatelets have been held. 5. Atrial fibrillation. Continue medical management. Follow up with Cardiology. 6. History of congestive heart failure. The patient appears hypovolemic to euvolemic. Continue to hold diuretic therapy. 7. Dementia. Continue medical management. 8. Hypothyroidism. Continue Synthroid. 9. Dyslipidemia. Continue statin therapy. Dictated By: CATRACHO PALENCIA DO NR/NTS Conf#: [id number] DID#: [id number] CC: LES SAUNDERS; SHIRA ANTOINE MD; CATRACHO PALENCIA DO;*EndCC*
--- NOTE | 2018-06-01 11:29 | PN ---
Date/Time of Note Date/Time of Note DATE: 06/01/18 TIME: 11:23 Assessment/Plan VTE Prophylaxis Risk score (from Ns)>0 risk: 4 SCD applied (from Ns): Yes Pharmacological prophylaxis: NA/contraindicated Pharm contraindication: bleeding Lines/Catheters [facility] Saline Lock Urinary Cath still in place: No Assessment/Plan Assessment/Plan ASSESSMENT AND PLAN: 82-year-old female coming in with history of paroxysmal atrial fibrillation on Eliquis, transcatheter aortic valve replacement, congestive heart failure, recent lower gastrointestinal bleeding 2 weeks ago, hospitalized for that, status post colonoscopy with internal hemorrhoids and d iverticulosis, presents with continued lower gastrointestinal bleeding and anemia, hemoglobin 5.9. 1. Anemia, lower gastrointestinal bleeding-on presentation the hemoglobin 5.9. -Status post 2 units of PRBC transfusion 3 days ago, hemoglobin since has been improved. - Monitor CBC every morning and signs for further lower GI bleeding - Continue to hold all anticoagulants including Eliquis-Per cardiology it is ok to hold eliquis given ongoing bleed, although per them patient at increased risk of CVA though AC contraindicated at this time - Per GI team recommendations -given positive nuclear tagged RBC scan results (likely right colon diverticular source), they feel no therapeutic intervention other than colectomy will decrease future risk of lower GI [id number] small bowel series as recommended by them to rule out the possibility of any other source of bleeding such as small intestine - Continue Protonix IV BID for now 2. History of congestive heart failure. BNP 10,000 this admission. - Continue to monitor for now. - Continue current cardiac medications cautiously -although we have been holding Entresto since admission secondary to renal insufficiency 3. High cholesterol. -Continue statin 4. History of transcatheter aortic valve replacement (TAVR). - Continue to monitor heart rate. - Carefully continue current cardiac medications per cardiology r ecommendations 5. History of paroxysmal atrial fibrillation. Presently rate controlled - again, continue to monitor heart rate on telemetry. -Again, holding off on anticoagulation given her gastrointestinal bleeding presently right now. 6. SHANEKA -slowly improving with intermittent doses of IV fluids cautiously given given her CHF history -Monitor for now, still holding Entresto as well 7. Gastrointestinal prophylaxis. Again, continue on PPI IV b.i.d. 8. Deep venous thrombosis prophylaxis. SCDs -avoid anticoagulants given GI bleeding Result Diagram: 06/01/18 0501 06/01/18 0501 Subjective 24 Hr Interval Summary Free Text/Dictation Patient had a formed, maroon-colored bowel movement today. Able to ambulate with physical therapy this morning, but slightly hypotensive. Son was at bedside, update him on the plan. After further discussion, son and patient agree that colostomy poses unreasonable operative risk, and leaving off anticoagulation and risking stroke may be the better option. Introduced DNR status. Son is concerned that her pacemaker will shock her if she goes into arrest. Will double check with cardiology. Exam/Review of Systems Exam Vitals Vital Signs Date Temp Pulse Resp B/P (MAP) Pulse Ox O2 O2 Flow FiO2 Time Delivery Rate 06/01/18 62 08:21 06/01/18 97.6 16 93/54 (67) 92 07:38 05/30/18 Room Air 03:42 Nasal Cannula 05/29/18 10 12:51 Intake and Output 05/31/18 05/31/18 06/01/18 1515:00 23:00 07:00 IntakeIntake Total 600 ml 650 ml OutputOutput Total 2 ml BalanceBalance 598 ml 650 ml Exam GENERAL: Frail elderly woman lying in bed, NAD HEENT: Pupils equal, round, reactive to light. Extraocular muscles intact. NECK: Supple. No thyromegaly. LUNGS: Clear to auscultation bilaterally. CARDIOVASCULAR: S1 and S2 heard. No rubs or gallops. ABDOMEN: Soft, nontender, nondistended. Normal bowel sounds. No rebound or guarding. MUSCULOSKELETAL: No lower extremity edema bilaterally. NEUROLOGIC: No focal deficits. Results Results 24hrs Laboratory Tests Test 05/31/18 13:28 05/31/18 18:04 06/01/18 01:03 06/01/18 05:01 Hemoglobin 9.9 L 9.1 L 7.6 L 8.4 L Hematocrit 30.2 L 27.9 L 23.7 L 26.4 L White Blood Count 6.5 Red Blood Count 2.71 L Mean Corpuscular 97.4 Volume Mean Corpuscular 31.0 Hemoglobin Mean Corpuscular 31.8 L Hemoglobin Concent Red Cell 18.6 H Distribution Width Platelet Count 79 L Mean Platelet Volume 9.9 Immature 0.500 H Granulocytes % Neutrophils % 77.6 H Lymphocytes % 8.4 L Monocytes % 11.2 H Eosinophils % 1.8 Basophils % 0.5 Nucleated Red Blood 0.3 H Cells % Immature 0.030 Granulocytes # Neutrophils # 5.1 Lymphocytes # 0.6 L Monocytes # 0.7 Eosinophils # 0.1 Basophils # 0.0 Nucleated Red Blood 0.0 Cells # Sodium Level 141 Potassium Level 3.6 Chloride Level 107 Carbon Dioxide Level 23 Anion Gap 11 Blood Urea Nitrogen 42 H Creatinine 1.37 H Est Glomerular Filtrat Rate mL/min Glucose Level 105 Calcium Level 8.7 Medications Medication Current Medications IV Flush (NS 3 ml) 3 ml PER PROTOCOL IV ; Start 05/28/18 at 19:00 Ondansetron HCl (Zofran Inj) 4 mg Q6H PRN IV NAUSEA/VOMITING; Start 05/28/18 at 19:00 Acetaminophen (Tylenol Tab) 650 mg Q6H PRN PO .PAIN 1-3 OR TEMP; Start 05/28/18 at 19:00 Acetaminophen/ Hydrocodone Bitart ([place] (5/325)) 1 tab Q6H PRN PO .MOD PAIN 4- 6; Start 05/28/18 at 19:00 Morphine Sulfate (morphine) 2 mg Q4H PRN IV .SEVERE PAIN 7-10; Start 05/28/18 at 19:00 Docusate Sodium (Colace) 100 mg Q12H PRN PO .CONSTIPATION; Start 05/28/18 at 19:00 Magnesium Hydroxide (Milk Of Mag) 30 ml DAILY PRN PO .CONSTIPATION; Start 05/28/18 at 19:00 Lorazepam (Ativan) 0.5 mg Q6H PRN IV ANXIETY; Start 05/28/18 at 19:00 Albuterol/ Ipratropium (Duoneb) 3 ml Q4H RESP THERAPY PRN HHN SHORTNESS OF BREATH; Start 05/28/18 at 19:00 Hydralazine HCl (Apresoline) 10 mg Q6H PRN IV ELEVATED BLOOD PRESSURE; Start 05/28/18 at 19:00 Nitroglycerin (Nitroglycerin (Sl Tab) 0.4 Mg) 1 tab Q5M PRN SL ANGINA; Start 05/28/18 at 19:00 Atorvastatin Calcium (Lipitor) 10 mg QHS PO Last administered on 05/31/18at 20:52; Admin Dose 10 MG; Start 05/28/18 at 21:00 Carvedilol (Coreg) 6.25 mg DAILY PO ; Start 05/29/18 at 09:00; Status Hold Levothyroxine Sodium (Synthroid) 100 mcg BEFORE BREAKFAST PO Last administered on 06/01/18 07:00; Admin Dose 100 MCG; Start 05/29/18 at 07:00 Calcium Carbonate (Oyster Shell Calcium) 1.25 gm BID PO Last administered on 06/01/18 08:18; Admin Dose 1.25 GM; Start 05/28/18 at 21:00 Cyanocobalamin (Vitamin B12) 1,000 mcg DAILY PO Last administered on 06/01/18 08:18; Admin Dose 1,000 MCG; Start 05/29/18 at 09:00 Multivitamins/ Minerals (Theragran-M) 1 tab DAILY PO Last administered on 06/01/18 08:18; Admin Dose 1 TAB; Start 05/29/18 at 09:00 Pantoprazole (Protonix Iv) 40 mg BID@ IV Last administered on 06/01/18 07:00; Admin Dose 40 MG; Start 05/28/18 at 19:30 SHIRA ANTOINE MD Jun 01, 2018 11:29
--- NOTE | 2018-06-01 13:59 | PN ---
Date/Time of Note Date/Time of Note DATE: 06/01/18 TIME: 13:47 Assessment/Plan VTE Prophylaxis Risk score (from Ns)>0 risk: 4 SCD applied (from Ns): Yes Pharmacological prophylaxis: other (scds) Lines/Catheters [facility] Saline Lock Urinary Cath still in place: No Assessment/Plan Hospital Course Assessment: GI bleeding/hematochezia/melena. Likely right colon diverticular source EGD 05/29/2018 distal esophagitis/gastritis no active bleeding colonoscopy Colonoscopy 05/11/2018 plan diverticulosis with evidence of recent bleeding NM bleed scan- Source likely right colon Anemia. Anticoagulation Dementia A-fib - CKD CHF Plan: Avoid anticoagulation as risk of rebleeding is very high Unfortunately no therapeutic intervention other than colectomy will decrease this risk We will obtain small bowel series to rule out remote possibility of alternative explanation of bleeding from small bowel- reviewed no SB etiology noted in CT abd/pelvis Patient seen in collaboration with Dr. Hendrickson/Barbre Subjective: Course reviewed with nursing staff Patient interviewed and examined All labs, imaging and other results reviewed The patient resting in bed, appears comfortable Discussed results of improved HGB. Pt did have x1 maroon stool earlier this morning. per nursing staff We will continue to monitor h/h transfuse as needed PHYSICAL EXAMINATION: GENERAL: Well developed, poorly nourished, alert & oriented x 3, in no acute distress SKIN: No lesions EYES: Pupils equal reactive to light and accommodation, full extraocular movements, sclera clear, non-icteric, no discharge. EARS/NOSE AND THROAT: Ears normal, nose normal, oropharynx normal, oral membranes well hydrated without lesions. NECK: Supple, no masses, thyroid normal CHEST: Inspection within normal limits. CARDIOVASCULAR: Heart: Regular rate and rhythm RESPIRATORY: Lungs clear to auscultation GASTROINTESTINAL AND LIVER: Abdomen: Soft, non tenderness, non-distended, no hernias, no masses, no organomegaly, no ascites, no guarding, no rebound tenderness, normoactive bowel sounds. Rectal: Deferred. GENITOURINARY: Female genitalia within normal limits. EXTREMITIES: No cyanosis, clubbing or edema. Result Diagram: 06/01/18 1220 06/01/18 0501 Results 24hrs Laboratory Tests Test 05/31/18 18:04 06/01/18 01:03 06/01/18 05:01 06/01/18 12:20 Hemoglobin 9.1 L 7.6 L 8.4 L 9.5 L Hematocrit 27.9 L 23.7 L 26.4 L 30.2 L White Blood Count 6.5 Red Blood Count 2.71 L Mean Corpuscular 97.4 Volume Mean Corpuscular 31.0 Hemoglobin Mean Corpuscular 31.8 L Hemoglobin Concent Red Cell 18.6 H Distribution Width Platelet Count 79 L Mean Platelet Volume 9.9 Immature 0.500 H Granulocytes % Neutrophils % 77.6 H Lymphocytes % 8.4 L Monocytes % 11.2 H Eosinophils % 1.8 Basophils % 0.5 Nucleated Red Blood 0.3 H Cells % Immature 0.030 Granulocytes # Neutrophils # 5.1 Lymphocytes # 0.6 L Monocytes # 0.7 Eosinophils # 0.1 Basophils # 0.0 Nucleated Red Blood 0.0 Cells # Sodium Level 141 Potassium Level 3.6 Chloride Level 107 Carbon Dioxide Level 23 Anion Gap 11 Blood Urea Nitrogen 42 H Creatinine 1.37 H Est Glomerular Filtrat Rate mL/min Glucose Level 105 Calcium Level 8.7 Exam/Review of Systems Exam Vitals Vital Signs Date Temp Pulse Resp B/P (MAP) Pulse Ox O2 O2 Flow FiO2 Time Delivery Rate 06/01/18 60 12:06 06/01/18 97.6 17 89/50 (63) 99 11:24 05/30/18 Room Air 03:42 Nasal Cannula 05/29/18 10 12:51 Intake and Output 05/31/18 05/31/18 06/01/18 1414:59 22:59 06:59 IntakeIntake Total 600 ml 650 ml OutputOutput Total 2 ml BalanceBalance 598 ml 650 ml Results Results 24hrs Laboratory Tests Test 05/31/18 18:04 06/01/18 01:03 06/01/18 05:01 06/01/18 12:20 Hemoglobin 9.1 L 7.6 L 8.4 L 9.5 L Hematocrit 27.9 L 23.7 L 26.4 L 30.2 L White Blood Count 6.5 Red Blood Count 2.71 L Mean Corpuscular 97.4 Volume Mean Corpuscular 31.0 Hemoglobin Mean Corpuscular 31.8 L Hemoglobin Concent Red Cell 18.6 H Distribution Width Platelet Count 79 L Mean Platelet Volume 9.9 Immature 0.500 H Granulocytes % Neutrophils % 77.6 H Lymphocytes % 8.4 L Monocytes % 11.2 H Eosinophils % 1.8 Basophils % 0.5 Nucleated Red Blood 0.3 H Cells % Immature 0.030 Granulocytes # Neutrophils # 5.1 Lymphocytes # 0.6 L Monocytes # 0.7 Eosinophils # 0.1 Basophils # 0.0 Nucleated Red Blood 0.0 Cells # Sodium Level 141 Potassium Level 3.6 Chloride Level 107 Carbon Dioxide Level 23 Anion Gap 11 Blood Urea Nitrogen 42 H Creatinine 1.37 H Est Glomerular Filtrat Rate mL/min Glucose Level 105 Calcium Level 8.7 Medications Medication Current Medications IV Flush (NS 3 ml) 3 ml PER PROTOCOL IV ; Start 05/28/18 at 19:00 Ondansetron HCl (Zofran Inj) 4 mg Q6H PRN IV NAUSEA/VOMITING; Start 05/28/18 at 19:00 Acetaminophen (Tylenol Tab) 650 mg Q6H PRN PO .PAIN 1-3 OR TEMP; Start 05/28/18 at 19:00 Acetaminophen/ Hydrocodone Bitart ([place] (5/325)) 1 tab Q6H PRN PO .MOD PAIN 4- 6; Start 05/28/18 at 19:00 Morphine Sulfate (morphine) 2 mg Q4H PRN IV .SEVERE PAIN 7-10; Start 05/28/18 at 19:00 Docusate Sodium (Colace) 100 mg Q12H PRN PO .CONSTIPATION; Start 05/28/18 at 19:00 Magnesium Hydroxide (Milk Of Mag) 30 ml DAILY PRN PO .CONSTIPATION; Start 05/28/18 at 19:00 Lorazepam (Ativan) 0.5 mg Q6H PRN IV ANXIETY; Start 05/28/18 at 19:00 Albuterol/ Ipratropium (Duoneb) 3 ml Q4H RESP THERAPY PRN HHN SHORTNESS OF BREATH; Start 05/28/18 at 19:00 Hydralazine HCl (Apresoline) 10 mg Q6H PRN IV ELEVATED BLOOD PRESSURE; Start 05/28/18 at 19:00 Nitroglycerin (Nitroglycerin (Sl Tab) 0.4 Mg) 1 tab Q5M PRN SL ANGINA; Start 05/28/18 at 19:00 Atorvastatin Calcium (Lipitor) 10 mg QHS PO Last administered on 05/31/18at 20:52; Admin Dose 10 MG; Start 05/28/18 at 21:00 Carvedilol (Coreg) 6.25 mg DAILY PO ; Start 05/29/18 at 09:00; Status Hold Levothyroxine Sodium (Synthroid) 100 mcg BEFORE BREAKFAST PO Last administered on 06/01/18 07:00; Admin Dose 100 MCG; Start 05/29/18 at 07:00 Calcium Carbonate (Oyster Shell Calcium) 1.25 gm BID PO Last administered on 06/01/18 08:18; Admin Dose 1.25 GM; Start 05/28/18 at 21:00 Cyanocobalamin (Vitamin B12) 1,000 mcg DAILY PO Last administered on 06/01/18 08:18; Admin Dose 1,000 MCG; Start 05/29/18 at 09:00 Multivitamins/ Minerals (Theragran-M) 1 tab DAILY PO Last administered on 05/15 08:18; Admin Dose 1 TAB; Start 05/29/18 at 09:00 Pantoprazole (Protonix Iv) 40 mg BID@ IV Last administered on 06/01/18 07:00; Admin Dose 40 MG; Start 05/28/18 at 19:30 JERROD MORGAN Jun 01, 2018 13:59
--- NOTE | 2018-06-01 17:25 | CONS ---
Consult Date/Type/Reason Admit Date/Time May 28, 2018 at 19:26 Initial Consult Date 05/29/18 Type of Consultation: cv Date/Time of Note DATE: 06/01/18 TIME: 17:20 Subjective Interventional cardiology follow-up progress note Subjective: Discussed with staff and telemetry was reviewed. Patient remains ventricular paced rhythm. Discussed with the patient's son as well. Patient is unaware of any more bleeding but according to the son stool was still dark She denies any chest pain or pressure to me has any palpitation to me. Objective: General: Elderly female no acute distress HEENT: NC/AT. pupils are equal. round. NECK: . no stridor. CV: RRR. systolic murmur; no gallop or rubs. PULM: no wheezing or rhonchi. GI: SOFT, NT, ND, no rebound or guarding Extremity: trace B/L LE edema. no clubbing. neuro: awake and alert, Psych: calm and pleasant rectal: deferred Abdominal/pelvic CT done May 30, 2018 shows: No evidence of urolithiasis, obstructive uropathy or diverticulitis. Diverticulosis. Nonvisualization appendix. No bowel mass or obstruction is seen. Cholecystectomy with presumed physiologic intra and extrahepatic bile duct dilatation. Correlation with serum bilirubin levels could be performed if clinically indicated. Aortic valve replacement. Cardiomegaly. Small pericardial effusion. Vascular calcifications. Senescent degenerative changes spine. Tiny right pleural effusion. Objective Vitals Vital Signs Date Temp Pulse Resp B/P (MAP) Pulse Ox O2 O2 Flow FiO2 Time Delivery Rate 06/01/18 60 16:06 06/01/18 98.2 18 111/58 100 15:04 (75) 05/30/18 Room Air 03:42 Nasal Cannula 05/29/18 10 12:51 Intake and Output 05/31/18 05/31/18 06/01/18 1515:00 23:00 07:00 IntakeIntake Total 600 ml 650 ml OutputOutput Total 2 ml BalanceBalance 598 ml 650 ml Results/Medications Result Diagram: 06/01/18 1220 06/01/18 0501 Results 24 hrs Laboratory Tests Test 05/31/18 18:04 06/01/18 01:03 06/01/18 05:01 06/01/18 12:20 Hemoglobin 9.1 L 7.6 L 8.4 L 9.5 L Hematocrit 27.9 L 23.7 L 26.4 L 30.2 L White Blood Count 6.5 Red Blood Count 2.71 L Mean Corpuscular 97.4 Volume Mean Corpuscular 31.0 Hemoglobin Mean Corpuscular 31.8 L Hemoglobin Concent Red Cell 18.6 H Distribution Width Platelet Count 79 L Mean Platelet Volume 9.9 Immature 0.500 H Granulocytes % Neutrophils % 77.6 H Lymphocytes % 8.4 L Monocytes % 11.2 H Eosinophils % 1.8 Basophils % 0.5 Nucleated Red Blood 0.3 H Cells % Immature 0.030 Granulocytes # Neutrophils # 5.1 Lymphocytes # 0.6 L Monocytes # 0.7 Eosinophils # 0.1 Basophils # 0.0 Nucleated Red Blood 0.0 Cells # Sodium Level 141 Potassium Level 3.6 Chloride Level 107 Carbon Dioxide Level 23 Anion Gap 11 Blood Urea Nitrogen 42 H Creatinine 1.37 H Est Glomerular Filtrat Rate mL/min Glucose Level 105 Calcium Level 8.7 Home Meds Reported Medications Cyanocobalamin (Vitamin B-12) (Vitamin B-12) 1,000 Mcg Tab.subl, 1000 MCG SL DAILY 05/28/18 Multivitamin/Iron/Folic Acid (Centrum Adults Tablet) 1 Each Tablet, 1 EACH PO DAILY, TAB 05/28/18 Calcium Carbonate* (Calcium Carbonate*) 600 MG Ca Tab, 600 MG PO BID, TAB 05/28/18 Omeprazole* (Omeprazole*) 40 Mg Capsule.dr, 40 MG PO DAILY, #30 CAP 05/28/18 Atorvastatin Calcium (Atorvastatin Calcium) 10 Mg Tablet, 10 MG PO QHS, #30 TAB 05/28/18 Apixaban* (Eliquis*) 2.5 Mg Tablet, 2.5 MG PO DAILY, TAB 05/28/18 Sacubitril/Valsartan (Entresto 49 mg-51 mg Tablet) 1 Each Tablet, 1 EACH PO DAILY, TAB 05/28/18 Carvedilol* (Carvedilol*) 6.25 Mg Tablet, 6.25 MG PO DAILY, #60 TAB 05/28/18 Furosemide* (Furosemide*) 40 Mg Tablet, 40 MG PO DAILY, TAB 05/28/18 Spironolactone* (Aldactone*) 25 Mg Tablet, 25 MG PO DAILY, #30 TAB 05/28/18 Levothyroxine Sodium* (Levothyroxine Sodium*) 100 Mcg Tablet, 100 MCG PO BEFORE BREAKFAST, #30 TAB 05/28/18 Discontinued Reported Medications Apixaban* (Eliquis*) 2.5 Mg Tablet, 2.5 MG PO BID, TAB 02/22/15 Calcium Carbonate ([id number]-593) 1 Tab Tablet, 1 TAB PO BID, TAB 02/22/15 Atorvastatin Calcium (Atorvastatin Calcium) 10 Mg Tablet, 10 MG PO QHS, #30 TAB 02/22/15 Carvedilol* (Coreg*) 3.125 Mg Tablet, 3.125 MG PO BID, TAB 02/22/15 Levothyroxine Sodium (Levothroid) 100 Mcg Tablet, 100 MCG PO DAILY 02/22/12 Ferrous Sulfate (Iron) 325 Mg Capsr, 325 MG PO TID 02/22/12 Cyanocobalamin (Cyanocobalamin) 1,000 Mcg Tablet, 1000 MCG PO DAILY 02/22/12 Multivitamins/Minerals (Centrum Silver) 1 Tab Tab, 1 TAB PO DAILY 07/04/11 Discontinued Scripts Pantoprazole* (Pantoprazole*) 40 Mg Tabec, 40 MG PO DAILY@06 for 30 Days Prov:ESTELLA DRAKE 02/27/15 Furosemide* (Lasix*) 40 Mg Tab, 40 MG PO DAILY for 30 Days, TAB Prov:ESTELLA DRAKE 02/27/15 Medications Current Medications IV Flush (NS 3 ml) 3 ml PER PROTOCOL IV ; Start 05/28/18 at 19:00 Ondansetron HCl (Zofran Inj) 4 mg Q6H PRN IV NAUSEA/VOMITING; Start 05/28/18 at 19:00 Acetaminophen (Tylenol Tab) 650 mg Q6H PRN PO .PAIN 1-3 OR TEMP; Start 05/28/18 at 19:00 Acetaminophen/ Hydrocodone Bitart ([place] (5/325)) 1 tab Q6H PRN PO .MOD PAIN 4- 6; Start 05/28/18 at 19:00 Morphine Sulfate (morphine) 2 mg Q4H PRN IV .SEVERE PAIN 7-10; Start 05/28/18 at 19:00 Docusate Sodium (Colace) 100 mg Q12H PRN PO .CONSTIPATION; Start 05/28/18 at 19:00 Magnesium Hydroxide (Milk Of Mag) 30 ml DAILY PRN PO .CONSTIPATION; Start 05/28/18 at 19:00 Lorazepam (Ativan) 0.5 mg Q6H PRN IV ANXIETY; Start 05/28/18 at 19:00 Albuterol/ Ipratropium (Duoneb) 3 ml Q4H RESP THERAPY PRN HHN SHORTNESS OF BREATH; Start 05/28/18 at 19:00 Hydralazine HCl (Apresoline) 10 mg Q6H PRN IV ELEVATED BLOOD PRESSURE; Start at 19:00 Nitroglycerin (Nitroglycerin (Sl Tab) 0.4 Mg) 1 tab Q5M PRN SL ANGINA; Start 05/28/18 at 19:00 Atorvastatin Calcium (Lipitor) 10 mg QHS PO Last administered on 05/31/18at 20:52; Admin Dose 10 MG; Start 05/28/18 at 21:00 Carvedilol (Coreg) 6.25 mg DAILY PO ; Start 05/29/18 at 09:00; Status Hold Levothyroxine Sodium (Synthroid) 100 mcg BEFORE BREAKFAST PO Last administered on 06/01/18at 07:00; Admin Dose 100 MCG; Start 05/29/18 at 07:00 Calcium Carbonate (Oyster Shell Calcium) 1.25 gm BID PO Last administered on 06/01/18 08:18; Admin Dose 1.25 GM; Start 05/28/18 at 21:00 Cyanocobalamin (Vitamin B12) 1,000 mcg DAILY PO Last administered on 06/01/18 08:18; Admin Dose 1,000 MCG; Start 05/29/18 at 09:00 Multivitamins/ Minerals (Theragran-M) 1 tab DAILY PO Last administered on 06/01/18at 08:18; Admin Dose 1 TAB; Start 05/29/18 at 09:00 Pantoprazole (Protonix Iv) 40 mg BID@ IV Last administered on 06/01/18at 07:00; Admin Dose 40 MG; Start 05/28/18 at 19:30 Assessment/Plan Hospital Course (Demo Recall) 1. Recurrent lower GI bleed on anticoagulation: Currently off Eliquis 2. 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 Severe cardiomyopathy 4. Sick sinus syndrome with permanent pacemaker 5. History of aortic stenosis status post transcutaneous aortic valve replacement 6 permissive hypertension 7. Chronic kidney disease 8. Anemia secondary to GI bleeding Recommendations: BP medication on hold due to low blood pressure Transfusion has been given GI has already evaluate the patient follow-up with recommendations Given her recurrent GI bleed on Eliquis we have to stop Eliquis unfortunately she will be a candidate to resume with most likely. Different options discussed with the patient and her son at the bedside who has also explained this to the rest of the family members including daughters. I have recommended her to undergo watchman procedure for closure left atrial appendage since she is noncontributory to tolerate anticoagulation.However patient and the family have refused . She is considering changing CODE STATUS is DNR. Patient is very well-known to me for the past many years from hospitalization as well as office visits. We will continue to monitor for now. Thank you for his referral. We will continue to follow along with you. KAYLAH BAXTER MD [facility] KAYLAH BAXTER MD Jun 01, 2018 17:25
[2018-06-01] MEDS: ATORVASTATIN 10 MG TAB PO SCH (20:37)
[2018-06-02] VITALS (12 sets, daily range): BP systolic 90–110; BP diastolic 50–60; PULSE 60–70; RESP 16–17
[2018-06-02] MEDS: PANTOPRAZOLE 40 MG INJ IV SCH (05:25)
[2018-06-02] MEDS: LEVOTHYROXINE 100 MCG TAB PO SCH (06:13)
[2018-06-02] MEDS: CALCIUM CARBONATE 1.25 GM TAB PO SCH ×2 (08:36→20:28)
[2018-06-02] MEDS: CYANOCOBALAMIN 500 MCG TAB PO SCH (08:36)
[2018-06-02] MEDS: MULTIVITAMINS/MINERALS TAB PO SCH (08:36)
--- NOTE | 2018-06-02 09:00 | PN ---
DATE: 06/02/2018 SUBJECTIVE: The patient is currently stable. No events overnight. No fevers, chills, nausea, or vo miting. OBJECTIVE: VITAL SIGNS: Blood pressure is 92/50, pulse 60, respirations 17, temperature 97.5. HEENT: Head is normocephalic. NECK: Supple. HEART: Regular rate. LUNGS: Show diminished breath sounds at the base. ABDOMEN: Soft, nontender to palpation without rebound or guarding. EXTREMITIES: Negative for clubbing, cyanosis, no edema. DERMATOLOGIC: No rashes. MUSCULOSKELETAL: No joint effusion. NEUROLOGIC: No change in exam. LABORATORY DATA: From 06/02/2018 was reviewed. MEDICATIONS: The patient's medications have been reviewed. ASSESSMENT AND PLAN: 1. Nonoliguric acute kidney injury with previous baseline creatinine of 1.2 to 1.5 mg/dL. Etiology of acute kidney injury is secondary to hemodynamics from diuretic use. Renal function is currently a t baseline. Continue current treatment plans, supportive care, renally dose all medicines. 2. Chronic kidney disease. The patient is currently in acute kidney injury as stated above. Contin ue disease factor modification. 3. Mineral bone disorder, monitor calcium and phosphorus levels. 4. Anemia with acute gastrointestinal bleed. The patient is status post EGD, colonoscopy with noted gastritis. Nuclear scan was positive. This is likely source of colon. The patient unfortunately w ould require colectomy for definitive therapy. At this point, we will continue to monitor, holding a ll anticoagulation. Follow up with GI and primary team. 5. Atrial fibrillation. Continue medical management. 6. History of congestive heart failure. The patient is currently compensated. Continue to hold diu retic therapy. 7. Hypothyroidism. Continue Synthroid. 8. Dementia. Continue medical management. 9. Dyslipidemia. Continue statin therapy. Dictated By: CATRACHO PALENCIA DO NR/NTS Conf#: [id number] DID#: [id number] CC: CATRACHO PALENCIA DO; SHIRA ANTOINE MD; LES SAUNDERS;*EndCC*
--- NOTE | 2018-06-02 12:50 | CONS ---
Consult Date/Type/Reason Admit Date/Time May 28, 2018 at 19:26 Initial Consult Date 05/29/18 Type of Consultation: cv Date/Time of Note DATE: 06/02/18 TIME: 12:49 Subjective Interventional cardiology follow-up progress note Subjective: Discussed with staff and telemetry was reviewed. Patient remains ventricular paced rhythm. Discussed with the patient's DAUGHTER at bedside Patient is unaware of any more bleeding She denies any chest pain or pressure to me has any palpitation to me. Patient and family have discussed that the do not want to proceed with any procedure including watchman procedure Objective: General: Elderly female no acute distress HEENT: NC/AT. pupils are equal. round. NECK: . no stridor. CV: RRR. systolic murmur; no gallop or rubs. PULM: no wheezing or rhonchi. GI: SOFT, NT, ND, no rebound or guarding Extremity: trace B/L LE edema. no clubbing. neuro: awake and alert, Psych: calm and pleasant rectal: deferred Abdominal/pelvic CT done May 30, 2018 shows: No evidence of urolithiasis, obstructive uropathy or diverticulitis. Diverti culosis. Nonvisualization appendix. No bowel mass or obstruction is seen. Cholecystectomy with presumed physiologic intra and extrahepatic bile duct dilatation. Correlation with serum bilirubin levels could be performed if clinically indicated. Aortic valve replacement. Cardiomegaly. Small pericardial effusion. Vascular calcifications. Senescent degenerative changes spine. Tiny right pleural effusion. Objective Vitals Vital Signs Date Temp Pulse Resp B/P (MAP) Pulse Ox O2 O2 Flow FiO2 Time Delivery Rate 06/02/18 62 12:03 06/02/18 97.6 16 98/55 (69) 91 11:13 05/30/18 Room Air 03:42 Nasal Cannula 05/29/18 10 12:51 Intake and Output 06/01/18 06/01/18 06/02/18 1515:00 23:00 07:00 IntakeIntake Total 800 ml 500 ml BalanceBalance 800 ml 500 ml Results/Medications Result Diagram: 06/02/1851806/02/18 05 Results 24 hrs Laboratory Tests Test 06/02/18 05:19 06/02/18 05:26 06/02/18 09:56 White Blood Count 8.2 # Red Blood Count 2.51 L Hemoglobin 8.0 L Hematocrit 25.0 L Mean Corpuscular Volume 99.6 Mean Corpuscular Hemoglobin 31.9 Mean Corpuscular Hemoglobin Concent 32.0 Red Cell Distribution Width 18.4 H Platelet Count 72 L Mean Platelet Volume 10.2 Immature Granulocytes % 0.400 Neutrophils % 74.1 Lymphocytes % 14.0 L Monocytes % 9.3 Eosinophils % 2.0 Basophils % 0.2 Nucleated Red Blood Cells % 0.0 Immature Granulocytes # 0.030 Neutrophils # 6.1 Lymphocytes # 1.2 Monocytes # 0.8 Eosinophils # 0.2 Basophils # 0.0 Nucleated Red Blood Cells # 0.0 Sodium Level 140 Potassium Level 3.8 Chloride Level 111 H Carbon Dioxide Level 21 Anion Gap 8 Blood Urea Nitrogen 47 H Creatinine 1.41 H Est Glomerular Filtrat Rate mL/min Glucose Level 92 Calcium Level 9.0 Bedside Glucose 118 Home Meds Reported Medications Cyanocobalamin (Vitamin B-12) (Vitamin B-12) 1,000 Mcg Tab.subl, 1000 MCG SL DAILY 05/28/18 Multivitamin/Iron/Folic Acid (Centrum Adults Tablet) 1 Each Tablet, 1 EACH PO DAILY, TAB 05/28/18 Calcium Carbonate* (Calcium Carbonate*) 600 MG Ca Tab, 600 MG PO BID, TAB 05/28/18 Omeprazole* (Omeprazole*) 40 Mg Capsule.dr, 40 MG PO DAILY, #30 CAP 05/28/18 Atorvastatin Calcium (Atorvastatin Calcium) 10 Mg Tablet, 10 MG PO QHS, #30 TAB 05/28/18 Apixaban* (Eliquis*) 2.5 Mg Tablet, 2.5 MG PO DAILY, TAB 05/28/18 Sacubitril/Valsartan (Entresto 49 mg-51 mg Tablet) 1 Each Tablet, 1 EACH PO DAILY, TAB 05/28/18 Carvedilol* (Carvedilol*) 6.25 Mg Tablet, 6.25 MG PO DAILY, #60 TAB 05/28/18 Furosemide* (Furosemide*) 40 Mg Tablet, 40 MG PO DAILY, TAB 05/28/18 Spironolactone* (Aldactone*) 25 Mg Tablet, 25 MG PO DAILY, #30 TAB 05/28/18 Levothyroxine Sodium* (Levothyroxine Sodium*) 100 Mcg Tablet, 100 MCG PO BEFORE BREAKFAST, #30 TAB 05/28/18 Discontinued Reported Medications Apixaban* (Eliquis*) 2.5 Mg Tablet, 2.5 MG PO BID, TAB 02/22/15 Calcium Carbonate ([id number]) 1 Tab Tablet, 1 TAB PO BID, TAB 02/22/15 Atorvastatin Calcium (Atorvastatin Calcium) 10 Mg Tablet, 10 MG PO QHS, #30 TAB 02/22/15 Carvedilol* (Coreg*) 3.125 Mg Tablet, 3.125 MG PO BID, TAB 02/22/15 Levothyroxine Sodium (Levothroid) 100 Mcg Tablet, 100 MCG PO DAILY 02/22/12 Ferrous Sulfate (Iron) 325 Mg Capsr, 325 MG PO TID 02/22/12 Cyanocobalamin (Cyanocobalamin) 1,000 Mcg Tablet, 1000 MCG PO DAILY 02/22/12 Multivitamins/Minerals (Centrum Silver) 1 Tab Tab, 1 TAB PO DAILY 07/04/11 Discontinued Scripts Pantoprazole* (Pantoprazole*) 40 Mg Tabec, 40 MG PO DAILY@06 for 30 Days Prov:ESTELLA DRAKE 02/27/15 Furosemide* (Lasix*) 40 Mg Tab, 40 MG PO DAILY for 30 Days, TAB Prov:ESTELLA DRAKE 02/27/15 Medications Current Medications IV Flush (NS 3 ml) 3 ml PER PROTOCOL IV ; Start 05/28/18 at 19:00 Ondansetron HCl (Zofran Inj) 4 mg Q6H PRN IV NAUSEA/VOMITING; Start 05/28/18 at 19:00 Acetaminophen (Tylenol Tab) 650 mg Q6H PRN PO .PAIN 1-3 OR TEMP; Start 05/28/18 at 19:00 Acetaminophen/ Hydrocodone Bitart ([place] (5/325)) 1 tab Q6H PRN PO .MOD PAIN 4- 6; Start 05/28/18 at 19:00 Morphine Sulfate (morphine) 2 mg Q4H PRN IV .SEVERE PAIN 7-10; Start 05/28/18 at 19:00 Docusate Sodium (Colace) 100 mg Q12H PRN PO .CONSTIPATION; Start 05/28/18 at 19:00 Magnesium Hydroxide (Milk Of Mag) 30 ml DAILY PRN PO .CONSTIPATION; Start 05/28/18 at 19:00 Lorazepam (Ativan) 0.5 mg Q6H PRN IV ANXIETY; Start 05/28/18 at 19:00 Albuterol/ Ipratropium (Duoneb) 3 ml Q4H RESP THERAPY PRN HHN SHORTNESS OF BREATH; Start 05/28/18 at 19:00 Hydralazine HCl (Apresoline) 10 mg Q6H PRN IV ELEVATED BLOOD PRESSURE; Start 05/28/18 at 19:00 Nitroglycerin (Nitroglycerin (Sl Tab) 0.4 Mg) 1 tab Q5M PRN SL ANGINA; Start 05/28/18 at 19:00 Atorvastatin Calcium (Lipitor) 10 mg QHS PO Last administered on 06/01/18at 20:37; Admin Dose 10 MG; Start 05/28/18 at 21:00 Carvedilol (Coreg) 6.25 mg DAILY PO ; Start 05/29/18 at 09:00; Status Hold Levothyroxine Sodium (Synthroid) 100 mcg BEFORE BREAKFAST PO Last administered on 06/02/18 06:13; Admin Dose 100 MCG; Start 05/29/18 at 07:00 Calcium Carbonate (Oyster Shell Calcium) 1.25 gm BID PO Last administered on 06/02/18 08:36; Admin Dose 1.25 GM; Start 05/28/18 at 21:00 Cyanocobalamin (Vitamin B12) 1,000 mcg DAILY PO Last administered on 06/02/18 08:36; Admin Dose 1,000 MCG; Start 05/29/18 at 09:00 Multivitamins/ Minerals (Theragran-M) 1 tab DAILY PO Last administered on 06/02/18 08:36; Admin Dose 1 TAB; Start 05/29/18 at 09:00 Pantoprazole (Protonix Iv) 40 mg BID@,18 IV Last administered on 06/02/18at 05:25; Admin Dose 40 MG; Start 05/28/18 at 19:30 Assessment/Plan Hospital Course (Demo Recall) 1. Recurrent lower GI bleed on anticoagulation: Currently off Eliquis 2. 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 Severe cardiomyopathy 4. Sick sinus syndrome with permanent pacemaker 5. History of aortic stenosis status post transcutaneous aortic valve replacement 6 permissive hypertension 7. Chronic kidney disease 8. Anemia secondary to GI bleeding Recommendations: BP medication on hold due to low blood pressure Transfusion as needed GI has already evaluate the patient follow-up with recommendations Given her recurrent GI bleed on Eliquis we have to stop Eliquis unfortunately she will be a candidate to resume Eliquis at this point.. Different options discussed with the patient and her son at the bedside who has also explained this to the rest of the family members including daughters. I have recommended her to undergo watchman procedure for closure left atrial appendage since she is noncontributory to tolerate anticoagulation. However patient and the family have refused . Patient is very well-known to me for the past many years from hospitalization as well as office visits. We will continue to monitor for now. Thank you for his referral. We will continue to follow along with you. KAYLAH BAXTER MD [facility] KAYLAH BAXTER MD Jun 02, 2018 12:50
--- NOTE | 2018-06-02 14:25 | PN ---
Date/Time of Note Date/Time of Note DATE: 06/02/18 TIME: 14:15 Assessment/Plan VTE Prophylaxis Risk score (from Ns)>0 risk: 4 SCD applied (from Ns): Yes Pharmacological prophylaxis: other (scds) Lines/Catheters IV Catheter Type (from [facility]): [place] Urinary Cath still in place: No Assessment/Plan Hospital Course Assessment: GI bleeding/hematochezia/melena. Likely right colon diverticular source EGD 05/29/2018 distal esophagitis/gastritis no active bleeding colonoscopy Colonoscopy 05/11/2018 plan diverticulosis with evidence of recent bleeding NM bleed scan- Source likely right colon Anemia. Anticoagulation Dementia A-fib - CKD CHF Plan: Avoid anticoagulation as risk of rebleeding is very high Unfortunately no therapeutic intervention other than colectomy will decrease this risk Will check INR in am. Patient seen in collaboration with Dr. Hendrickson/Barber Subjective: Course reviewed with nursing staff Patient interviewed and examined All labs, imaging and other results reviewed The patient resting in bed, appears comfortable Poor appetite, boost has been added HGB trending down. will transfuse as needed. Treatment options are limited PHYSICAL EXAMINATION: GENERAL: Well developed, poorly nourished, alert & oriented x 3, in no acute distress SKIN: No lesions EYES: Pupils equal reactive to light and accommodation, full extraocular movements, sclera clear, non-icteric, no discharge. EARS/NOSE AND THROAT: Ears normal, nose normal, oropharynx normal, oral membranes well hydrated without lesions. NECK: Supple, no masses, thyroid normal CHEST: Inspection within normal limits. CARDIOVASCULAR: Heart: Regular rate and rhythm RESPIRATORY: Lungs clear to auscultation GASTROINTESTINAL AND LIVER: Abdomen: Soft, non tenderness, non-distended, no hernias, no masses, no organomegaly, no ascites, no guarding, no rebound tenderness, normoactive bowel sounds. Rectal: Deferred. GENITOURINARY: Female genitalia within normal limits. EXTREMITIES: No cyanosis, clubbing or edema. Result Diagram: 06/02/1851806/02/18 05 Results 24hrs Laboratory Tests Test 06/02/18 05:19 06/02/18 05:26 06/02/18 09:56 White Blood Count 8.2 # Red Blood Count 2.51 L Hemoglobin 8.0 L Hematocrit 25.0 L Mean Corpuscular Volume 99.6 Mean Corpuscular Hemoglobin 31.9 Mean Corpuscular Hemoglobin Concent 32.0 Red Cell Distribution Width 18.4 H Platelet Count 72 L Mean Platelet Volume 10.2 Immature Granulocytes % 0.400 Neutrophils % 74.1 Lymphocytes % 14.0 L Monocytes % 9.3 Eosinophils % 2.0 Basophils % 0.2 Nucleated Red Blood Cells % 0.0 Immature Granulocytes # 0.030 Neutrophils # 6.1 Lymphocytes # 1.2 Monocytes # 0.8 Eosinophils # 0.2 Basophils # 0.0 Nucleated Red Blood Cells # 0.0 Sodium Level 140 Potassium Level 3.8 Chloride Level 111 H Carbon Dioxide Level 21 Anion Gap 8 Blood Urea Nitrogen 47 H Creatinine 1.41 H Est Glomerular Filtrat Rate mL/min Glucose Level 92 Calcium Level 9.0 Bedside Glucose 118 Exam/Review of Systems Exam Vitals Vital Signs Date Temp Pulse Resp B/P (MAP) Pulse Ox O2 O2 Flow FiO2 Time Delivery Rate 06/02/18 62 12:03 06/02/18 97.6 16 98/55 (69) 91 11:13 05/30/18 Room Air 03:42 Nasal Cannula 05/29/18 10 12:51 Intake and Output 06/01/18 06/01/18 06/02/18 1515:00 23:00 07:00 IntakeIntake Total 800 ml 500 ml BalanceBalance 800 ml 500 ml Results Results 24hrs Laboratory Tests Test 06/02/18 05:19 06/02/18 05:26 06/02/18 09:56 White Blood Count 8.2 # Red Blood Count 2.51 L Hemoglobin 8.0 L Hematocrit 25.0 L Mean Corpuscular Volume 99.6 Mean Corpuscular Hemoglobin 31.9 Mean Corpuscular Hemoglobin Concent 32.0 Red Cell Distribution Width 18.4 H Platelet Count 72 L Mean Platelet Volume 10.2 Immature Granulocytes % 0.400 Neutrophils % 74.1 Lymphocytes % 14.0 L Monocytes % 9.3 Eosinophils % 2.0 Basophils % 0.2 Nucleated Red Blood Cells % 0.0 Immature Granulocytes # 0.030 Neutrophils # 6.1 Lymphocytes # 1.2 Monocytes # 0.8 Eosinophils # 0.2 Basophils # 0.0 Nucleated Red Blood Cells # 0.0 Sodium Level 140 Potassium Level 3.8 Chloride Level 111 H Carbon Dioxide Level 21 Anion Gap 8 Blood Urea Nitrogen 47 H Creatinine 1.41 H Est Glomerular Filtrat Rate mL/min Glucose Level 92 Calcium Level 9.0 Bedside Glucose 118 Medications Medication Current Medications IV Flush (NS 3 ml) 3 ml PER PROTOCOL IV ; Start 05/28/18 at 19:00 Ondansetron HCl (Zofran Inj) 4 mg Q6H PRN IV NAUSEA/VOMITING; Start 05/28/18 at 19:00 Acetaminophen (Tylenol Tab) 650 mg Q6H PRN PO .PAIN 1-3 OR TEMP; Start 05/28/18 at 19:00 Acetaminophen/ Hydrocodone Bitart ([place] (5/325)) 1 tab Q6H PRN PO .MOD PAIN 4- 6; Start 05/28/18 at 19:00 Morphine Sulfate (morphine) 2 mg Q4H PRN IV .SEVERE PAIN 7-10; Start 05/28/18 at 19:00 Docusate Sodium (Colace) 100 mg Q12H PRN PO .CONSTIPATION; Start 05/28/18 at 19:00 Magnesium Hydroxide (Milk Of Mag) 30 ml DAILY PRN PO .CONSTIPATION; Start 05/28/18 at 19:00 Lorazepam (Ativan) 0.5 mg Q6H PRN IV ANXIETY; Start 05/28/18 at 19:00 Albuterol/ Ipratropium (Duoneb) 3 ml Q4H RESP THERAPY PRN HHN SHORTNESS OF BREATH; Start 05/28/18 at 19:00 Hydralazine HCl (Apresoline) 10 mg Q6H PRN IV ELEVATED BLOOD PRESSURE; Start 05/28/18 at 19:00 Nitroglycerin (Nitroglycerin (Sl Tab) 0.4 Mg) 1 tab Q5M PRN SL ANGINA; Start 05/28/18 at 19:00 Atorvastatin Calcium (Lipitor) 10 mg QHS PO Last administered on 06/01/18at 20:37; Admin Dose 10 MG; Start 05/28/18 at 21:00 Carvedilol (Coreg) 6.25 mg DAILY PO ; Start 05/29/18 at 09:00; Status Hold Levothyroxine Sodium (Synthroid) 100 mcg BEFORE BREAKFAST PO Last administered on 06/02/18at 06:13; Admin Dose 100 MCG; Start 05/29/18 at 07:00 Calcium Carbonate (Oyster Shell Calcium) 1.25 gm BID PO Last administered on 08:36; Admin Dose 1.25 GM; Start 05/28/18 at 21:00 Cyanocobalamin (Vitamin B12) 1,000 mcg DAILY PO Last administered on 06/02/18 08:36; Admin Dose 1,000 MCG; Start 05/29/18 at 09:00 Multivitamins/ Minerals (Theragran-M) 1 tab DAILY PO Last administered on 06/02/18 08:36; Admin Dose 1 TAB; Start 05/29/18 at 09:00 Pantoprazole (Protonix Tab) 40 mg BID@06,18 PO ; Start 06/02/18 at 18:00 JERROD MORGAN Jun 02, 2018 14:25
--- NOTE | 2018-06-02 15:11 | PN ---
Date/Time of Note Date/Time of Note DATE: 06/02/18 TIME: 15:08 Assessment/Plan VTE Prophylaxis Risk score (from Ns)>0 risk: 4 SCD applied (from Ns): Yes Pharmacological prophylaxis: NA/contraindicated Pharm contraindication: bleeding Lines/Catheters [facility] Urinary Cath still in place: No Assessment/Plan Assessment/Plan ASSESSMENT AND PLAN: 82-year-old female coming in with history of paroxysmal atrial fibrillation on Eliquis, transcatheter aortic valve replacement, congestive heart failure, recent lower gastrointestinal bleeding 2 weeks ago, hospitalized for that, status post colonoscopy with internal hemorrhoids and d iverticulosis, presents with continued lower gastrointestinal bleeding and anemia, hemoglobin 5.9. 1. Anemia, lower gastrointestinal bleeding-on presentation the hemoglobin 5.9. -Status post 2 units of PRBC transfusion, hemoglobin since has been improved and is stable - Monitor CBC every morning and signs for further lower GI bleeding - Continue to hold all anticoagulants including Eliquis -Per cardiology it is ok to hold eliquis given ongoing bleed, although per them patient at increased risk of CVA though AC contraindicated at this time - Per GI team recommendations: -given positive nuclear tagged RBC scan results (likely right colon diverticular source), they feel no therapeutic intervention other than colectomy will decrease future risk of lower GI [id number] small bowel series as recommended by them to rule out the possibility of any other source of bleeding such as small intestine - Continue Protonix for now - Discussed with son and patient. Colostomy is an unacceptable surgical risk, will continue with no anticoagulation and risk the stroke. 2. History of congestive heart failure. BNP 10,000 this admission. - Continue to monitor for now. - Continue current cardiac medications cautiously -although we have been holding Entresto since admission secondary to renal insufficiency 3. High cholesterol. -Continue statin 4. History of transcatheter aortic valve replacement (TAVR). - Continue to monitor heart rate. - Carefully continue current cardiac medications per cardiology recommendations 5. History of paroxysmal atrial fibrillation. Presently rate controlled - again, continue to monitor heart rate on telemetry. -Again, holding off on anticoagulation given her gastrointestinal bleeding presently right now. 6. SHANEKA -slowly improving with intermittent doses of IV fluids cautiously given given her CHF history -Monitor for now, still holding Entresto as well 7. Gastrointestinal prophylaxis. Again, continue on PPI IV b.i.d. 8. Deep venous thrombosis prophylaxis. SCDs -avoid anticoagulants given GI bleeding Dispo: Anticipate discharge home (with home health) and son who will provide 24 hour care. Currently patient very deconditioned and still trouble walking. Will continue inpatient PT. Result Diagram: 06/02/1851806/02/18 05 Subjective 24 Hr Interval Summary Free Text/Dictation No acute overnight events. Patient continues to have dizziness when standing and walking. Introduced the idea of SNF, but son wants her discharged home. Exam/Review of Systems Exam Vitals Vital Signs Date Temp Pulse Resp B/P (MAP) Pulse Ox O2 O2 Flow FiO2 Time Delivery Rate 06/02/18 62 12:03 06/02/18 97.6 16 98/55 (69) 91 11:13 05/30/18 Room Air 03:42 Nasal Cannula 05/29/18 10 12:51 Intake and Output 06/01/18 06/01/18 06/02/18 1515:00 23:00 07:00 IntakeIntake Total 800 ml 500 ml BalanceBalance 800 ml 500 ml Exam GENERAL: Frail elderly woman lying in bed, NAD HEENT: Pupils equal, round, reactive to light. Extraocular muscles intact. NECK: Supple. No thyromegaly. LUNGS: Clear to auscultation bilaterally. CARDIOVASCULAR: S1 and S2 heard. No rubs or gallops. ABDOMEN: Soft, nontender, nondistended. Normal bowel sounds. No rebound or guarding. MUSCULOSKELETAL: No lower extremity edema bilaterally. NEUROLOGIC: No focal deficits. Results Results 24hrs Laboratory Tests Test 06/02/18 05:19 06/02/18 05:26 06/02/18 09:56 White Blood Count 8.2 # Red Blood Count 2.51 L Hemoglobin 8.0 L Hematocrit 25.0 L Mean Corpuscular Volume 99.6 Mean Corpuscular Hemoglobin 31.9 Mean Corpuscular Hemoglobin Concent 32.0 Red Cell Distribution Width 18.4 H Platelet Count 72 L Mean Platelet Volume 10.2 Immature Granulocytes % 0.400 Neutrophils % 74.1 Lymphocytes % 14.0 L Monocytes % 9.3 Eosinophils % 2.0 Basophils % 0.2 Nucleated Red Blood Cells % 0.0 Immature Granulocytes # 0.030 Neutrophils # 6.1 Lymphocytes # 1.2 Monocytes # 0.8 Eosinophils # 0.2 Basophils # 0.0 Nucleated Red Blood Cells # 0.0 Sodium Level 140 Potassium Level 3.8 Chloride Level 111 H Carbon Dioxide Level 21 Anion Gap 8 Blood Urea Nitrogen 47 H Creatinine 1.41 H Est Glomerular Filtrat Rate mL/min Glucose Level 92 Calcium Level 9.0 Bedside Glucose 118 Medications Medication Current Medications IV Flush (NS 3 ml) 3 ml PER PROTOCOL IV ; Start 05/28/18 at 19:00 Ondansetron HCl (Zofran Inj) 4 mg Q6H PRN IV NAUSEA/VOMITING; Start 05/28/18 at 19:00 Acetaminophen (Tylenol Tab) 650 mg Q6H PRN PO .PAIN 1-3 OR TEMP; Start 05/28/18 at 19:00 Acetaminophen/ Hydrocodone Bitart ([place] (5/325)) 1 tab Q6H PRN PO .MOD PAIN 4-6; Start 05/28/18 at 19:00 Morphine Sulfate (morphine) 2 mg Q4H PRN IV .SEVERE PAIN 7-10; Start 05/28/18 at 19:00 Docusate Sodium (Colace) 100 mg Q12H PRN PO .CONSTIPATION; Start 05/28/18 at 19:00 Magnesium Hydroxide (Milk Of Mag) 30 ml DAILY PRN PO .CONSTIPATION; Start 05/28/18 at 19:00 Lorazepam (Ativan) 0.5 mg Q6H PRN IV ANXIETY; Start 05/28/18 at 19:00 Albuterol/ Ipratropium (Duoneb) 3 ml Q4H RESP THERAPY PRN HHN SHORTNESS OF BREATH; Start 05/28/18 at 19:00 Hydralazine HCl (Apresoline) 10 mg Q6H PRN IV ELEVATED BLOOD PRESSURE; Start 05/28/18 at 19:00 Nitroglycerin (Nitroglycerin (Sl Tab) 0.4 Mg) 1 tab Q5M PRN SL ANGINA; Start 05/28/18 at 19:00 Atorvastatin Calcium (Lipitor) 10 mg QHS PO Last administered on 06/01/18at 20:37; Admin Dose 10 MG; Start 05/28/18 at 21:00 Carvedilol (Coreg) 6.25 mg DAILY PO ; Start 05/29/18 at 09:00; Status Hold Levothyroxine Sodium (Synthroid) 100 mcg BEFORE BREAKFAST PO Last administered on 06/02/18 06:13; Admin Dose 100 MCG; Start 05/29/18 at 07:00 Calcium Carbonate (Oyster Shell Calcium) 1.25 gm BID PO Last administered on 06/02/18 08:36; Admin Dose 1.25 GM; Start 05/28/18 at 21:00 Cyanocobalamin (Vitamin B12) 1,000 mcg DAILY PO Last administered on 06/02/18 08:36; Admin Dose 1,000 MCG; Start 05/29/18 at 09:00 Multivitamins/ Minerals (Theragran-M) 1 tab DAILY PO Last administered on 06/02/18 08:36; Admin Dose 1 TAB; Start 05/29/18 at 09:00 Pantoprazole (Protonix Tab) 40 mg BID@,18 PO ; Start 06/02/18 at 18:00 SHIRA ANTOINE MD Jun 02, 2018 15:11
[2018-06-02] MEDS: PANTOPRAZOLE (EC) 40 MG TAB PO SCH (17:15)
[2018-06-02] MEDS: ATORVASTATIN 10 MG TAB PO SCH (20:28)
[2018-06-03] VITALS (18 sets, daily range): BP systolic 94–112; BP diastolic 49–61; PULSE 60–75; RESP 16–22
[2018-06-03] MEDS: PANTOPRAZOLE (EC) 40 MG TAB PO SCH ×2 (06:09→19:18)
[2018-06-03] MEDS: LEVOTHYROXINE 100 MCG TAB PO SCH (06:09)
[2018-06-03] MEDS ORDERED: SOD CHLORIDE 0.9% 250 ML IV* ONE (06:16)
[2018-06-03] MEDS: CALCIUM CARBONATE 1.25 GM TAB PO SCH ×2 (08:21→20:18)
[2018-06-03] MEDS: MULTIVITAMINS/MINERALS TAB PO SCH (08:21)
[2018-06-03] MEDS: CYANOCOBALAMIN 500 MCG TAB PO SCH (08:21)
--- NOTE | 2018-06-03 08:52 | CONS ---
Consult Date/Type/Reason Admit Date/Time May 28, 2018 at 19:26 Initial Consult Date 05/29/18 Type of Consultation: cv Date/Time of Note DATE: 06/03/18 TIME: 08:51 Subjective Interventional cardiology follow-up progress note Subjective: Discussed with staff and telemetry was reviewed. Patient remains ventricular paced rhythm. Discussed with the patient's son at bedside Patient is unaware of any more bleeding but has had no more BM. She denies any chest pain or pressure to me has any palpitation to me. Patient and family have discussed that the do not want to proceed with any procedure including watchman procedure Objective: General: Elderly female no acute distress HEENT: NC/AT. pupils are equal. round. NECK: . no stridor. CV: RRR. systolic murmur; no gallop or rubs. PULM: no wheezing or rhonchi. GI: SOFT, NT, ND, no rebound or guarding Extremity: trace B/L LE edema. no clubbing. neuro: awake and alert, Psych: calm and pleasant rectal: deferred Abdominal/pelvic CT done May 30, 2018 shows: No evidence of urolithiasis, obstructive uropathy or diverticulitis. Diverticulosis. Nonvisualization appendix. No bowel mass or obstruction is seen. Cholecystectomy with presumed physiologic intra and extrahepatic bile duct dilatation. Correlation with serum bilirubin levels could be performed if clinically indicated. Aortic valve replacement. Cardiomegaly. Small pericardial effusion. Vascular calcifications. Senescent degenerative changes spine. Tiny right pleural effusion. Objective Vitals Vital Signs Date Temp Pulse Resp B/P (MAP) Pulse Ox O2 O2 Flow FiO2 Time Delivery Rate 06/03/18 97.5 64 22 104/55 96 Room Air 08:15 (71) Intake and Output 06/02/18 06/02/18 06/03/18 1515:00 23:00 07:00 IntakeIntake Total 800 ml 500 ml BalanceBalance 800 ml 500 ml Results/Medications Result Diagram: 06/03/1852206/03/18522 Results 24 hrs Laboratory Tests Test 06/02/18 09:56 06/03/18 05:23 Bedside Glucose 118 White Blood Count 7.5 Red Blood Count 2.28 L Hemoglobin 7.1 L Hematocrit 22.8 L Mean Corpuscular Volume 100.0 Mean Corpuscular Hemoglobin 31.1 Mean Corpuscular Hemoglobin Concent 31.1 L Red Cell Distribution Width 18.6 H Platelet Count 63 L Mean Platelet Volume 9.9 Immature Granulocytes % 0.400 Neutrophils % 81.5 H Lymphocytes % 7.2 L Monocytes % 8.6 Eosinophils % 2.0 Basophils % 0.3 Nucleated Red Blood Cells % 0.0 Immature Granulocytes # 0.030 Neutrophils # 6.1 Lymphocytes # 0.5 L Monocytes # 0.6 Eosinophils # 0.2 Basophils # 0.0 Nucleated Red Blood Cells # 0.0 Prothrombin Time 13.1 Prothrombin Time Ratio 1.0 INR International Normalized Ratio 0.98 Sodium Level 142 Potassium Level 3.7 Chloride Level 113 H Carbon Dioxide Level 22 Anion Gap 7 Blood Urea Nitrogen 51 H Creatinine 1.30 H Est Glomerular Filtrat Rate mL/min Glucose Level 97 Calcium Level 8.9 Home Meds Reported Medications Cyanocobalamin (Vitamin B-12) (Vitamin B-12) 1,000 Mcg Tab.subl, 1000 MCG SL D AILY 05/28/18 Multivitamin/Iron/Folic Acid (Centrum Adults Tablet) 1 Each Tablet, 1 EACH PO DAILY, TAB 05/28/18 Calcium Carbonate* (Calcium Carbonate*) 600 MG Ca Tab, 600 MG PO BID, TAB 05/28/18 Omeprazole* (Omeprazole*) 40 Mg Capsule.dr, 40 MG PO DAILY, #30 CAP 05/28/18 Atorvastatin Calcium (Atorvastatin Calcium) 10 Mg Tablet, 10 MG PO QHS, #30 TAB 05/28/18 Apixaban* (Eliquis*) 2.5 Mg Tablet, 2.5 MG PO DAILY, TAB 05/28/18 Sacubitril/Valsartan (Entresto 49 mg-51 mg Tablet) 1 Each Tablet, 1 EACH PO DAILY, TAB 05/28/18 Carvedilol* (Carvedilol*) 6.25 Mg Tablet, 6.25 MG PO DAILY, #60 TAB 05/28/18 Furosemide* (Furosemide*) 40 Mg Tablet, 40 MG PO DAILY, TAB 05/28/18 Spironolactone* (Aldactone*) 25 Mg Tablet, 25 MG PO DAILY, #30 TAB 05/28/18 Levothyroxine Sodium* (Levothyroxine Sodium*) 100 Mcg Tablet, 100 MCG PO BEFORE BREAKFAST, #30 TAB 05/28/18 Discontinued Reported Medications Apixaban* (Eliquis*) 2.5 Mg Tablet, 2.5 MG PO BID, TAB 02/22/15 Calcium Carbonate ([id number]) 1 Tab Tablet, 1 TAB PO BID, TAB 02/22/15 Atorvastatin Calcium (Atorvastatin Calcium) 10 Mg Tablet, 10 MG PO QHS, #30 TAB 02/22/15 Carvedilol* (Coreg*) 3.125 Mg Tablet, 3.125 MG PO BID, TAB 02/22/15 Levothyroxine Sodium (Levothroid) 100 Mcg Tablet, 100 MCG PO DAILY 02/22/12 Ferrous Sulfate (Iron) 325 Mg Capsr, 325 MG PO TID 02/22/12 Cyanocobalamin (Cyanocobalamin) 1,000 Mcg Tablet, 1000 MCG PO DAILY 02/22/12 Multivitamins/Minerals (Centrum Silver) 1 Tab Tab, 1 TAB PO DAILY 07/04/11 Discontinued Scripts Pantoprazole* (Pantoprazole*) 40 Mg Tabec, 40 MG PO DAILY@06 for 30 Days Prov:ESTELLA DRAKE 02/27/15 Furosemide* (Lasix*) 40 Mg Tab, 40 MG PO DAILY for 30 Days, TAB Prov:ESTELLA DRAKE 02/27/15 Medications Current Medications IV Flush (NS 3 ml) 3 ml PER PROTOCOL IV ; Start 05/28/18 at 19:00 Ondansetron HCl (Zofran Inj) 4 mg Q6H PRN IV NAUSEA/VOMITING; Start 05/28/18 at 19:00 Acetaminophen (Tylenol Tab) 650 mg Q6H PRN PO .PAIN 1-3 OR TEMP; Start 05/28/18 at 19:00 Acetaminophen/ Hydrocodone Bitart ([place] (5/325)) 1 tab Q6H PRN PO .MOD PAIN 4- 6; Start 05/28/18 at 19:00 Morphine Sulfate (morphine) 2 mg Q4H PRN IV .SEVERE PAIN 7-10; Start 05/28/18 at 19:00 Docusate Sodium (Colace) 100 mg Q12H PRN PO .CONSTIPATION; Start 05/28/18 at 19:00 Magnesium Hydroxide (Milk Of Mag) 30 ml DAILY PRN PO .CONSTIPATION; Start 05/28/18 at 19:00 Lorazepam (Ativan) 0.5 mg Q6H PRN IV ANXIETY; Start 05/28/18 at 19:00 Albuterol/ Ipratropium (Duoneb) 3 ml Q4H RESP THERAPY PRN HHN SHORTNESS OF BREATH; Start 05/28/18 at 19:00 Hydralazine HCl (Apresoline) 10 mg Q6H PRN IV ELEVATED BLOOD PRESSURE; Start 05/28/18 at 19:00 Nitroglycerin (Nitroglycerin (Sl Tab) 0.4 Mg) 1 tab Q5M PRN SL ANGINA; Start 05/28/18 at 19:00 Atorvastatin Calcium (Lipitor) 10 mg QHS PO Last administered on 06/02/18at 20:28; Admin Dose 10 MG; Start 05/28/18 at 21:00 Carvedilol (Coreg) 6.25 mg DAILY PO ; Start 05/29/18 at 09:00; Status Hold Levothyroxine Sodium (Synthroid) 100 mcg BEFORE BREAKFAST PO Last administered on 06/03/18at 06:09; Admin Dose 100 MCG; Start 05/29/18 at 07:00 Calcium Carbonate (Oyster Shell Calcium) 1.25 gm BID PO Last administered on at 08:21; Admin Dose 1.25 GM; Start 05/28/18 at 21:00 Cyanocobalamin (Vitamin B12) 1,000 mcg DAILY PO Last administered on 06/03/18 08:21; Admin Dose 1,000 MCG; Start 05/29/18 at 09:00 Multivitamins/ Minerals (Theragran-M) 1 tab DAILY PO Last administered on 06/03/18 08:21; Admin Dose 1 TAB; Start 05/29/18 at 09:00 Pantoprazole (Protonix Tab) 40 mg BID@06,18 PO Last administered on 06/03/18 06:09; Admin Dose 40 MG; Start 06/02/18 at 18:00 Assessment/Plan Hospital Course (Demo Recall) 1. Recurrent lower GI bleed on anticoagulation: Currently off Eliquis 2. 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 Severe cardiomyopathy 4. Sick sinus syndrome with permanent pacemaker 5. History of aortic stenosis status post transcutaneous aortic valve replacement 6 permissive hypertension 7. Chronic kidney disease 8. Anemia secondary to GI bleeding Recommendations: Transfusion as needed GI has already evaluate the patient follow-up with recommendations Given her recurrent GI bleed on Eliquis we have to stop Eliquis unfortunately she will be a candidate to resume Eliquis at this point.. Different options discussed with the patient and her son at the bedside who has also explained this to the rest of the family members including daughters. I have recommended her to undergo watchman procedure for closure left atrial appendage since she is noncontributory to tolerate anticoagulation. However patient and the family have refused . Patient is very well-known to me for the past many years from hospitalization as well as office visits. We will continue to monitor for now. Thank you for his referral. We will continue to follow along with you. KAYLAH BAXTER MD [facility] KAYLAH BAXTER MD Jun 03, 2018 08:52
--- NOTE | 2018-06-03 09:18 | PN ---
DATE: 06/03/2018 SUBJECTIVE: The patient is stable, no events overnight. OBJECTIVE: VITAL SIGNS: Blood pressure is 104/55, pulse 64, respirations 22, temperature 97.5. HEENT: Head is normocephalic. NECK: Supple. HEART: Regular rate. LUNGS: Show diminished breath sounds at the base. ABDOMEN: Soft, nontender to palpation without rebound or guarding. EXTREMITIES: Negative for clubbing, cyanosis, or edema. DERMATOLOGIC: No rashes. MUSCULOSKELETAL: No joint effusion. NEUROLOGIC: No change in exam. MEDICATIONS: Reviewed. LABORATORY DATA: From 06/03/2018 was reviewed. ASSESSMENT AND PLAN: 1. Nonoliguric acute kidney injury with a previous baseline creatinine of 1.2 to 1.5 mg/dL. Etiolog y of acute kidney injury is secondary to hemodynamics. Renal function is fluctuating, but overall st able. Continue current treatment plans, supportive care, renally dose all medicines. 2. Chronic kidney disease. The patient is currently in acute kidney injury as stated above. Contin ue disease factor modification. 3. Mineral bone disorder, monitor calcium and phosphorus levels. 4. Anemia with acute gastrointestinal bleed. The patient is status post EGD, colonoscopy with noted gastritis. The patient's nuclear scan was positive likely source is colon. However, the patient is not a candidate for colectomy. We will therefore continue current treatment plan. Monitor hemoglob in and hematocrit levels. Follow up with GI primary team. 5. Atrial fibrillation. Continue medical management. 6. History of congestive heart failure, currently compensated. Diuretics are on hold. 7. Hypothyroidism. Continue Synthroid. 8. History of dementia. 9. Dyslipidemia. Continue statin therapy. Dictated By: CATRACHO PALENCIA DO NR/NTS Conf#: [id number] DID#: [id number] CC: LES SAUNDERS; SHIRA ANTOINE MD; CATRACHO PALENCIA DO;*EndCC*
--- NOTE | 2018-06-03 10:30 | PN ---
Date/Time of Note Date/Time of Note DATE: 06/03/18 TIME: 10:27 Assessment/Plan VTE Prophylaxis Risk score (from Ns)>0 risk: 4 SCD applied (from Ns): Yes Pharmacological prophylaxis: NA/contraindicated Pharm contraindication: bleeding Lines/Catheters [facility] Saline Lock Urinary Cath still in place: No Assessment/Plan Assessment/Plan ASSESSMENT AND PLAN: 82-year-old female coming in with history of paroxysmal atrial fibrillation on Eliquis, transcatheter aortic valve replacement, congestive heart failure, recent lower gastrointestinal bleeding 2 weeks ago, hospitalized for that, status post colonoscopy with internal hemorrhoids and d iverticulosis, presents with continued lower gastrointestinal bleeding and anemia, hemoglobin 5.9. 1. Anemia, lower gastrointestinal bleeding-on presentation the hemoglobin 5.9. -Status post 2 units of PRBC transfusion on admission - Continue to hold all anticoagulants including Eliquis -Per cardiology it is ok to hold eliquis given ongoing bleed, although per them patient at increased risk of CVA though AC contraindicated at this time - Per GI team recommendations: -given positive nuclear tagged RBC scan results (likely right colon diverticular source), they feel no therapeutic intervention other than colectomy will decrease future risk of lower GI [id number] small bowel series as recommended by them to rule out the possibility of any other source of bleeding such as small intestine - Continue Protonix for now - Discussed with son and patient. Colostomy is an unacceptable surgical risk, will continue with no anticoagulation and risk the stroke. - Last transfusion is 06/03 2. History of congestive heart failure. BNP 10,000 this admission. - Continue to monitor for now. - Continue current cardiac medications cautiously -although we have been holding Entresto since admission secondary to renal insufficiency 3. High cholesterol. -Continue statin 4. History of transcatheter aortic valve replacement (TAVR). - Continue to monitor heart rate. - Carefully continue current cardiac medications per cardiology recommendations 5. History of paroxysmal atrial fibrillation. Presently rate controlled - again, continue to monitor heart rate on telemetry. -Again, holding off on anticoagulation given her gastrointestinal bleeding presently right now. 6. SHANEKA -slowly improving with intermittent doses of IV fluids cautiously given given her CHF history -Monitor for now, still holding Entresto as well 7. Gastrointestinal prophylaxis. Again, continue on PPI IV b.i.d. 8. Deep venous thrombosis prophylaxis. SCDs -avoid anticoagulants given GI bleeding Dispo: Anticipate discharge home (with home health) and son who will provide 24 hour care. Currently patient very deconditioned and still trouble walking. Will continue inpatient PT. Result Diagram: 06/03/18 0523 06/03/18 0523 Subjective 24 Hr Interval Summary Free Text/Dictation No acute overnight events. Able to ambulate to bathroom with assistance. According to son, she is near baseline. Nursing concerned because blood pressure remain low; near 80s systolic Required another unit pRBCs today Exam/Review of Systems Exam Vitals Vital Signs Date Temp Pulse Resp B/P (MAP) Pulse Ox O2 O2 Flow FiO2 Time Delivery Rate 06/03/18 97.5 64 22 104/55 96 Room Air 08:15 (71) Intake and Output 06/02/18 06/02/18 06/03/18 1515:00 23:00 07:00 IntakeIntake Total 800 ml 500 ml BalanceBalance 800 ml 500 ml Exam GENERAL: Frail elderly woman lying in bed, NAD HEENT: Pupils equal, round, reactive to light. Extraocular muscles intact. NECK: Supple. No thyromegaly. LUNGS: Clear to auscultation bilaterally. CARDIOVASCULAR: S1 and S2 heard. No rubs or gallops. ABDOMEN: Soft, nontender, nondistended. Normal bowel sounds. No rebound or guarding. MUSCULOSKELETAL: No lower extremity edema bilaterally. NEUROLOGIC: No focal deficits. Results Results 24hrs Laboratory Tests Test 06/03/18 05:23 White Blood Count 7.5 Red Blood Count 2.28 L Hemoglobin 7.1 L Hematocrit 22.8 L Mean Corpuscular Volume 100.0 Mean Corpuscular Hemoglobin 31.1 Mean Corpuscular Hemoglobin Concent 31.1 L Red Cell Distribution Width 18.6 H Platelet Count 63 L Mean Platelet Volume 9.9 Immature Granulocytes % 0.400 Neutrophils % 81.5 H Lymphocytes % 7.2 L Monocytes % 8.6 Eosinophils % 2.0 Basophils % 0.3 Nucleated Red Blood Cells % 0.0 Immature Granulocytes # 0.030 Neutrophils # 6.1 Lymphocytes # 0.5 L Monocytes # 0.6 Eosinophils # 0.2 Basophils # 0.0 Nucleated Red Blood Cells # 0.0 Prothrombin Time 13.1 Prothrombin Time Ratio 1.0 INR International Normalized Ratio 0.98 Sodium Level 142 Potassium Level 3.7 Chloride Level 113 H Carbon Dioxide Level 22 Anion Gap 7 Blood Urea Nitrogen 51 H Creatinine 1.30 H Est Glomerular Filtrat Rate mL/min Glucose Level 97 Calcium Level 8.9 Medications Medication Current Medications IV Flush (NS 3 ml) 3 ml PER PROTOCOL IV ; Start 05/28/18 at 19:00 Ondansetron HCl (Zofran Inj) 4 mg Q6H PRN IV NAUSEA/VOMITING; Start 05/28/18 at 19:00 Acetaminophen (Tylenol Tab) 650 mg Q6H PRN PO .PAIN 1-3 OR TEMP; Start 05/28/18 at 19:00 Acetaminophen/ Hydrocodone Bitart ([place] (5/325)) 1 tab Q6H PRN PO .MOD PAIN 4- 6; Start 05/28/18 at 19:00 Morphine Sulfate (morphine) 2 mg Q4H PRN IV .SEVERE PAIN 7-10; Start 05/28/18 at 19:00 Docusate Sodium (Colace) 100 mg Q12H PRN PO .CONSTIPATION; Start 05/28/18 at 19:00 Magnesium Hydroxide (Milk Of Mag) 30 ml DAILY PRN PO .CONSTIPATION; Start 05/28/18 at 19:00 Lorazepam (Ativan) 0.5 mg Q6H PRN IV ANXIETY; Start 05/28/18 at 19:00 Albuterol/ Ipratropium (Duoneb) 3 ml Q4H RESP THERAPY PRN HHN SHORTNESS OF BREATH; Start 05/28/18 at 19:00 Hydralazine HCl (Apresoline) 10 mg Q6H PRN IV ELEVATED BLOOD PRESSURE; Start 05/28/18 at 19:00 Nitroglycerin (Nitroglycerin (Sl Tab) 0.4 Mg) 1 tab Q5M PRN SL ANGINA; Start 05/28/18 at 19:00 Atorvastatin Calcium (Lipitor) 10 mg QHS PO Last administered on 06/02/18at 20:28; Admin Dose 10 MG; Start 05/28/18 at 21:00 Carvedilol (Coreg) 6.25 mg DAILY PO ; Start 05/29/18 at 09:00; Status Hold Levothyroxine Sodium (Synthroid) 100 mcg BEFORE BREAKFAST PO Last administered on 06/03/18at 06:09; Admin Dose 100 MCG; Start 05/29/18 at 07:00 Calcium Carbonate ([place] Calcium) 1.25 gm BID PO Last administered on 06/03/18 08:21; Admin Dose 1.25 GM; Start 05/28/18 at 21:00 Cyanocobalamin (Vitamin B12) 1,000 mcg DAILY PO Last administered on 06/03/18 08:21; Admin Dose 1,000 MCG; Start 05/29/18 at 09:00 Multivitamins/ Minerals (Theragran-M) 1 tab DAILY PO Last administered on 06/03/18at 08:21; Admin Dose 1 TAB; Start 05/29/18 at 09:00 Pantoprazole (Protonix Tab) 40 mg BID@18 PO Last administered on 06/03/18 06:09; Admin Dose 40 MG; Start 06/02/18 at 18:00 SHIRA ANTOINE MD Jun 03, 2018 10:30
--- NOTE | 2018-06-03 14:32 | PN ---
Date/Time of Note Date/Time of Note DATE: 06/03/18 TIME: 14:31 Assessment/Plan VTE Prophylaxis Risk score (from Ns)>0 risk: 5 SCD applied (from Ns): Yes Pharmacological prophylaxis: other Lines/Catheters IV [facility]ter [facility] (from [facility]): Peripheral IV Urinary Cath still in place: No Assessment/Plan Hospital Course Assessment: GI bleeding/hematochezia/melena. Likely right colon diverticular source EGD 05/29/2018 distal esophagitis/gastritis no active bleeding colonoscopy Colonoscopy 05/11/2018 plan diverticulosis with evidence of recent bleeding NM bleed scan- Source likely right colon Anemia. Anticoagulation Dementia A-fib - CKD CHF Plan: Avoid anticoagulation as risk of rebleeding is very high Unfortunately no therapeutic intervention other than colectomy will decrease this risk D/c planning per hospitalist Continue to monitor h/h- transfuse as needed No new GI recommendations Patient seen in collaboration with Dr. Hendrickson/Barber Subjective: Course reviewed with nursing staff Patient interviewed and examined All labs, imaging and other results reviewed The patient resting in bed, appears comfortable Poor appetite, boost has been added HGB trending down.Nurse denies overt signs of GI bleed Treatment options are limited, continue to monitor. PHYSICAL EXAMINATION: GENERAL: Well developed, poorly nourished, alert & oriented x 3, in no acute distress SKIN: No lesions EYES: Pupils equal reactive to light and accommodation, full extraocular movements, sclera clear, non-icteric, no discharge. EARS/NOSE AND THROAT: Ears normal, nose normal, oropharynx normal, oral membranes well hydrated without lesions. NECK: Supple, no masses, thyroid normal CHEST: Inspection within normal limits. CARDIOVASCULAR: Heart: Regular rate and rhythm RESPIRATORY: Lungs clear to auscultation GASTROINTESTINAL AND LIVER: Abdomen: Soft, non tenderness, non-distended, no hernias, no masses, no organomegaly, no ascites, no guarding, no rebound tenderness, normoactive bowel sounds. Rectal: Deferred. GENITOURINARY: Female genitalia within normal limits. EXTREMITIES: No cyanosis, clubbing or edema. Result Diagram: 06/03/18 0523 06/03/18 0523 Results 24hrs Laboratory Tests Test 06/03/18 05:23 White Blood Count 7.5 Red Blood Count 2.28 L Hemoglobin 7.1 L Hematocrit 22.8 L Mean Corpuscular Volume 100.0 Mean Corpuscular Hemoglobin 31.1 Mean Corpuscular Hemoglobin Concent 31.1 L Red Cell Distribution Width 18.6 H Platelet Count 63 L Mean Platelet Volume 9.9 Immature Granulocytes % 0.400 Neutrophils % 81.5 H Lymphocytes % 7.2 L Monocytes % 8.6 Eosinophils % 2.0 Basophils % 0.3 Nucleated Red Blood Cells % 0.0 Immature Granulocytes # 0.030 Neutrophils # 6.1 Lymphocytes # 0.5 L Monocytes # 0.6 Eosinophils # 0.2 Basophils # 0.0 Nucleated Red Blood Cells # 0.0 Prothrombin Time 13.1 Prothrombin Time Ratio 1.0 INR International Normalized Ratio 0.98 Sodium Level 142 Potassium Level 3.7 Chloride Level 113 H Carbon Dioxide Level 22 Anion Gap 7 Blood Urea Nitrogen 51 H Creatinine 1.30 H Est Glomerular Filtrat Rate mL/min Glucose Level 97 Calcium Level 8.9 Exam/Review of Systems Exam Vitals Vital Signs Date Temp Pulse Resp B/P (MAP) Pulse Ox O2 O2 Flow FiO2 Time Delivery Rate 06/03/18 98.4 64 20 108/53 97 Room Air 13:30 (71) Intake and Output 06/02/18 06/02/18 06/03/18 1515:00 23:00 07:00 IntakeIntake Total 800 ml 500 ml BalanceBalance 800 ml 500 ml Results Results 24hrs Laboratory Tests Test 06/03/18 05:23 White Blood Count 7.5 Red Blood Count 2.28 L Hemoglobin 7.1 L Hematocrit 22.8 L Mean Corpuscular Volume 100.0 Mean Corpuscular Hemoglobin 31.1 Mean Corpuscular Hemoglobin Concent 31.1 L Red Cell Distribution Width 18.6 H Platelet Count 63 L Mean Platelet Volume 9.9 Immature Granulocytes % 0.400 Neutrophils % 81.5 H Lymphocytes % 7.2 L Monocytes % 8.6 Eosinophils % 2.0 Basophils % 0.3 Nucleated Red Blood Cells % 0.0 Immature Granulocytes # 0.030 Neutrophils # 6.1 Lymphocytes # 0.5 L Monocytes # 0.6 Eosinophils # 0.2 Basophils # 0.0 Nucleated Red Blood Cells # 0.0 Prothrombin Time 13.1 Prothrombin Time Ratio 1.0 INR International Normalized Ratio 0.98 Sodium Level 142 Potassium Level 3.7 Chloride Level 113 H Carbon Dioxide Level 22 Anion Gap 7 Blood Urea Nitrogen 51 H Creatinine 1.30 H Est Glomerular Filtrat Rate mL/min Glucose Level 97 Calcium Level 8.9 Medications Medication Current Medications IV Flush (NS 3 ml) 3 ml PER PROTOCOL IV ; Start 05/28/18 at 19:00 Ondansetron HCl (Zofran Inj) 4 mg Q6H PRN IV NAUSEA/VOMITING; Start 05/28/18 at 19:00 Acetaminophen (Tylenol Tab) 650 mg Q6H PRN PO .PAIN 1-3 OR TEMP; Start 05/28/18 at 19:00 Acetaminophen/ Hydrocodone Bitart ([place] (5/325)) 1 tab Q6H PRN PO .MOD PAIN 4- 6; Start 05/28/18 at 19:00 Morphine Sulfate (morphine) 2 mg Q4H PRN IV .SEVERE PAIN 7-10; Start 05/28/18 at 19:00 Docusate Sodium (Colace) 100 mg Q12H PRN PO .CONSTIPATION; Start 05/28/18 at 19:00 Magnesium Hydroxide (Milk Of Mag) 30 ml DAILY PRN PO .CONSTIPATION; Start 05/28/18 at 19:00 Lorazepam (Ativan) 0.5 mg Q6H PRN IV ANXIETY; Start 05/28/18 at 19:00 Albuterol/ Ipratropium (Duoneb) 3 ml Q4H RESP THERAPY PRN HHN SHORTNESS OF BREATH; Start 05/28/18 at 19:00 Hydralazine HCl (Apresoline) 10 mg Q6H PRN IV ELEVATED BLOOD PRESSURE; Start 05/28/18 at 19:00 Nitroglycerin (Nitroglycerin (Sl Tab) 0.4 Mg) 1 tab Q5M PRN SL ANGINA; Start 05/28/18 at 19:00 Atorvastatin Calcium (Lipitor) 10 mg QHS PO Last administered on 06/02/18at 20:28; Admin Dose 10 MG; Start 05/28/18 at 21:00 Carvedilol (Coreg) 6.25 mg DAILY PO ; Start 05/29/18 at 09:00; Status Hold Levothyroxine Sodium (Synthroid) 100 mcg BEFORE BREAKFAST PO Last administered on 06/03/18at 06:09; Admin Dose 100 MCG; Start 05/29/18 at 07:00 Calcium Carbonate (Oyster Shell Calcium) 1.25 gm BID PO Last administered on 3/20/19at 08:21; Admin Dose 1.25 GM; Start 05/28/18 at 21:00 Cyanocobalamin (Vitamin B12) 1,000 mcg DAILY PO Last administered on 06/03/18 08:21; Admin Dose 1,000 MCG; Start 05/29/18 at 09:00 Multivitamins/ Minerals (Theragran-M) 1 tab DAILY PO Last administered on 06/03/18 08:21; Admin Dose 1 TAB; Start 05/29/18 at 09:00 Pantoprazole (Protonix Tab) 40 mg BID@06,18 PO Last administered on 06/03/18 06:09; Admin Dose 40 MG; Start 06/02/18 at 18:00 JERROD MORGAN Jun 03, 2018 14:32
[2018-06-03] MEDS: ATORVASTATIN 10 MG TAB PO SCH (20:18)
[2018-06-04] MEDS: LEVOTHYROXINE 100 MCG TAB PO SCH (06:02)
[2018-06-04] MEDS: PANTOPRAZOLE (EC) 40 MG TAB PO SCH ×2 (06:02→17:23)
[2018-06-04 07:41] VITALS: BP 101/61; PULSE 60; RESP 19
[2018-06-04] MEDS: MULTIVITAMINS/MINERALS TAB PO SCH (08:45)
[2018-06-04] MEDS: CYANOCOBALAMIN 500 MCG TAB PO SCH (08:45)
[2018-06-04] MEDS: CALCIUM CARBONATE 1.25 GM TAB PO SCH ×2 (08:45→20:56)
--- NOTE | 2018-06-04 09:02 | PN ---
DATE: 06/04/2018 SUBJECTIVE: The patient is stable, no events overnight. No episodes of bleeding. The patient is st atus post blood transfusion yesterday. No other events noted. OBJECTIVE: VITAL SIGNS: Blood pressure is 101/61, pulse 60, respirations 19, temperature 98.2. HEENT: Head is normocephalic. NECK: Supple. HEART: Regular rate. LUNGS: Show diminished breath sounds at the base. ABDOMEN: Soft, nontender to palpation without rebound or guarding. EXTREMITIES: Negative for clubbing, cyanosis, no edema. DERMATOLOGIC: No rashes. MUSCULOSKELETAL: No joint effusion. NEUROLOGIC: No change in exam. MEDICATIONS: Reviewed. LABORATORY DATA: Reviewed. ASSESSMENT AND PLAN: 1. Nonoliguric acute kidney injury with previous baseline creatinine of 1.2 to 1.5 mg/dL. Etiology of acute kidney injury is secondary to hemodynamics. Renal function is fluctuated, but overall stabl e. Continue current treatment plans, supportive care, renally dose all medicines. 2. Chronic kidney disease. The patient is currently in acute kidney injury as stated above. Contin ue current medical management. Continue disease factor modification. 3. Mineral bone disorder, monitor calcium and phosphorus levels. 4. Anemia with gastrointestinal bleed. The patient is status post blood transfusion. The patient's positive nuclear scan they just called as an underlying source. The patient, however, does not wish to have a colectomy at this time. We will continue to monitor. Follow up with GI. 5. Atrial fibrillation. Continue medical management, off anticoagulation. 6. History of congestive heart failure, currently compensated. 7. Hypothyroidism. Continue Synthroid. 8. History of dementia. 9. Dyslipidemia. Continue statin therapy. Dictated By: CATRACHO PALENCIA DO NR/NTS Conf#: [id number] DID#: [id number] CC: LES SAUNDERS; SHIRA ANTOINE MD; CATRACHO PALENCIA DO;*EndCC*
--- NOTE | 2018-06-04 09:36 | CONS ---
Consult Date/Type/Reason Admit Date/Time May 28, 2018 at 19:26 Initial Consult Date 05/29/18 Type of Consultation: cv Date/Time of Note DATE: 06/04/18 TIME: 09:32 Subjective Interventional cardiology follow-up progress note Subjective: Discussed with staff and telemetry was reviewed. Patient is off tele now Discussed with the patient's son at bedside Patient is unaware of any more bleeding but has had no more BM. She denies any chest pain or pressure to me has any palpitation to me. Patient and family have discussed that the do not want to proceed with any procedure including watchman procedure Objective: General: Elderly female no acute distress HEENT: NC/AT. pupils are equal. round. NECK: . no stridor. CV: RRR. systolic murmur; no gallop or rubs. PULM: no wheezing or rhonchi. GI: SOFT, NT, ND, no rebound or guarding Extremity: trace B/L LE edema. no clubbing. neuro: awake and alert, Psych: calm and pleasant rectal: deferred Abdominal/pelvic CT done May 30, 2018 shows: No evidence of urolithiasis, obstructive uropathy or diverticulitis. Divert iculosis. Nonvisualization appendix. No bowel mass or obstruction is seen. Cholecystectomy with presumed physiologic intra and extrahepatic bile duct dilatation. Correlation with serum bilirubin levels could be performed if clinically indicated. Aortic valve replacement. Cardiomegaly. Small pericardial effusion. Vascular calcifications. Senescent degenerative changes spine. Tiny right pleural effusion. Objective Vitals Vital Signs Date Temp Pulse Resp B/P (MAP) Pulse Ox O2 O2 Flow FiO2 Time Delivery Rate 06/04/18 98.2 60 19 101/61 98 07:41 (74) 06/03/18 Nasal 2.0 15:44 Cannula Intake and Output 06/03/18 06/03/18 06/04/18 1515:00 23:00 07:00 IntakeIntake Total 1080 ml BalanceBalance 1080 ml Results/Medications Result Diagram: 06/04/18 0504 06/04/18 0504 Results 24 hrs Laboratory Tests Test 06/04/18 05:04 White Blood Count 8.3 Red Blood Count 2.78 #L Hemoglobin 8.8 #L Hematocrit 27.4 #L Mean Corpuscular Volume 98.6 Mean Corpuscular Hemoglobin 31.7 Mean Corpuscular Hemoglobin Concent 32.1 Red Cell Distribution Width 17.6 H Platelet Count 59 L Mean Platelet Volume 10.4 Immature Granulocytes % 0.400 Neutrophils % 78.1 H Lymphocytes % 8.7 L Monocytes % 9.8 Eosinophils % 2.5 Basophils % 0.5 Nucleated Red Blood Cells % 0.0 Immature Granulocytes # 0.030 Neutrophils # 6.5 Lymphocytes # 0.7 L Monocytes # 0.8 Eosinophils # 0.2 Basophils # 0.0 Nucleated Red Blood Cells # 0.0 Sodium Level 141 Potassium Level 4.0 Chloride Level 110 Carbon Dioxide Level 23 Anion Gap 8 Blood Urea Nitrogen 49 H Creatinine 1.24 H Est Glomerular Filtrat Rate mL/min Glucose Level 95 Calcium Level 9.0 Home Meds Reported Medications Cyanocobalamin (Vitamin B-12) (Vitamin B-12) 1,000 Mcg Tab.subl, 1000 MCG SL DAILY 05/28/18 Multivitamin/Iron/Folic Acid (Centrum Adults Tablet) 1 Each Tablet, 1 EACH PO DAILY, TAB 05/28/18 Calcium Carbonate* (Calcium Carbonate*) 600 MG Ca Tab, 600 MG PO BID, TAB 05/28/18 Omeprazole* (Omeprazole*) 40 Mg Capsule.dr, 40 MG PO DAILY, #30 CAP 05/28/18 Atorvastatin Calcium (Atorvastatin Calcium) 10 Mg Tablet, 10 MG PO QHS, #30 TAB 05/28/18 Apixaban* (Eliquis*) 2.5 Mg Tablet, 2.5 MG PO DAILY, TAB 05/28/18 Sacubitril/Valsartan (Entresto 49 mg-51 mg Tablet) 1 Each Tablet, 1 EACH PO DAILY, TAB 05/28/18 Carvedilol* (Carvedilol*) 6.25 Mg Tablet, 6.25 MG PO DAILY, #60 TAB 05/28/18 Furosemide* (Furosemide*) 40 Mg Tablet, 40 MG PO DAILY, TAB 05/28/18 Spironolactone* (Aldactone*) 25 Mg Tablet, 25 MG PO DAILY, #30 TAB 05/28/18 Levothyroxine Sodium* (Levothyroxine Sodium*) 100 Mcg Tablet, 100 MCG PO BEFORE BREAKFAST, #30 TAB 05/28/18 Discontinued Reported Medications Apixaban* (Eliquis*) 2.5 Mg Tablet, 2.5 MG PO BID, TAB 02/22/15 Calcium Carbonate ([id number]) 1 Tab Tablet, 1 TAB PO BID, TAB 02/22/15 Atorvastatin Calcium (Atorvastatin Calcium) 10 Mg Tablet, 10 MG PO QHS, #30 TAB 02/22/15 Carvedilol* (Coreg*) 3.125 Mg Tablet, 3.125 MG PO BID, TAB 02/22/15 Levothyroxine Sodium (Levothroid) 100 Mcg Tablet, 100 MCG PO DAILY 02/22/12 Ferrous Sulfate (Iron) 325 Mg Capsr, 325 MG PO TID 02/22/12 Cyanocobalamin (Cyanocobalamin) 1,000 Mcg Tablet, 1000 MCG PO DAILY 02/22/12 Multivitamins/Minerals (Centrum Silver) 1 Tab Tab, 1 TAB PO DAILY 07/04/11 Discontinued Scripts Pantoprazole* (Pantoprazole*) 40 Mg Tabec, 40 MG PO DAILY@06 for 30 Days Prov:ESTELLA DRAKE 02/27/15 Furosemide* (Lasix*) 40 Mg Tab, 40 MG PO DAILY for 30 Days, TAB Prov:ESTELLA DRAKE 02/27/15 Medications Current Medications IV Flush (NS 3 ml) 3 ml PER PROTOCOL IV ; Start 05/28/18 at 19:00 Ondansetron HCl (Zofran Inj) 4 mg Q6H PRN IV NAUSEA/VOMITING; Start 05/28/18 at 19:00 Acetaminophen (Tylenol Tab) 650 mg Q6H PRN PO .PAIN 1-3 OR TEMP; Start 05/28/18 at 19:00 Acetaminophen/ Hydrocodone Bitart ([place] (5/325)) 1 tab Q6H PRN PO .MOD PAIN 4- 6; Start 05/28/18 at 19:00 Morphine Sulfate (morphine) 2 mg Q4H PRN IV .SEVERE PAIN 7-10; Start 05/28/18 at 19:00 Docusate Sodium (Colace) 100 mg Q12H PRN PO .CONSTIPATION; Start 05/28/18 at 19:00 Magnesium Hydroxide (Milk Of Mag) 30 ml DAILY PRN PO .CONSTIPATION; Start 05/28/18 at 19:00 Lorazepam (Ativan) 0.5 mg Q6H PRN IV ANXIETY; Start 05/28/18 at 19:00 Albuterol/ Ipratropium (Duoneb) 3 ml Q4H RESP THERAPY PRN HHN SHORTNESS OF BREATH; Start 05/28/18 at 19:00 Hydralazine HCl (Apresoline) 10 mg Q6H PRN IV ELEVATED BLOOD PRESSURE; Start 05/28/18 at 19:00 Nitroglycerin (Nitroglycerin (Sl Tab) 0.4 Mg) 1 tab Q5M PRN SL ANGINA; Start 05/28/18 at 19:00 Atorvastatin Calcium (Lipitor) 10 mg QHS PO Last administered on 06/03/18at 20:18; Admin Dose 10 MG; Start 05/28/18 at 21:00 Carvedilol (Coreg) 6.25 mg DAILY PO ; Start 05/29/18 at 09:00; Status Hold Levothyroxine Sodium (Synthroid) 100 mcg BEFORE BREAKFAST PO Last administered on 06/04/18at 06:02; Admin Dose 100 MCG; Start 05/29/18 at 07:00 Calcium Carbonate (Oyster Shell Calcium) 1.25 gm BID PO Last administered on 06/04/18at 08:45; Admin Dose 1.25 GM; Start 05/28/18 at 21:00 Cyanocobalamin (Vitamin B12) 1,000 mcg DAILY PO Last administered on 06/04/18 08:45; Admin Dose 1,000 MCG; Start 05/29/18 at 09:00 Multivitamins/ Minerals (Theragran-M) 1 tab DAILY PO Last administered on 06/04/18 08:45; Admin Dose 1 TAB; Start 05/29/18 at 09:00 Pantoprazole (Protonix Tab) 40 mg BID@18 PO Last administered on 06/04/18at 06:02; Admin Dose 40 MG; Start 06/02/18 at 18:00 Assessment/Plan Hospital Course (Demo Recall) 1. Recurrent lower GI bleed on anticoagulation: Currently off Eliquis 2. 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 Severe cardiomyopathy 4. Sick sinus syndrome with permanent pacemaker 5. History of aortic stenosis status post transcutaneous aortic valve replacement 6 permissive hypertension 7. Chronic kidney disease 8. Anemia secondary to GI bleeding 9. anemia: s/p transfusions Recommendations: Will resume coreg at lower dose of 3.125 bid Transfusion as needed follow-up with GI recommendations will resume entresto once BP remains stable Thank you for his referral. We will continue to follow along with you. KAYLAH BAXTER MD [facility] KAYLAH BAXTER MD Jun 04, 2018 09:36
--- NOTE | 2018-06-04 11:26 | PN ---
Date/Time of Note Date/Time of Note DATE: 06/04/18 TIME: 11:14 Assessment/Plan VTE Prophylaxis Risk score (from Ns)>0 risk: 5 SCD applied (from Ns): Yes Pharmacological prophylaxis: other (scds) Lines/Catheters [facility] [place] Urinary Cath still in place: No Assessment/Plan Hospital Course Assessment: GI bleeding/hematochezia/melena. Likely right colon diverticular source EGD 05/29/2018 distal esophagitis/gastritis no active bleeding colonoscopy Colonoscopy 05/11/2018 plan diverticulosis with evidence of recent bleeding NM bleed scan- Source likely right colon Anemia. Anticoagulation Dementia A-fib - CKD CHF Thrombocytopenia- trending down Plan: Avoid anticoagulation as risk of rebleeding is very high Unfortunately no therapeutic intervention other than colectomy will decrease thi s risk Continue to monitor h/h- transfuse as needed No overt signs of GI bleed. PPI BID x4 weeks GI will sign off but will be available upon reconsult as needed Patient seen in collaboration with Dr. Hendrickson/Barber Subjective: Course reviewed with nursing staff Patient interviewed and examined All labs, imaging and other results reviewed Patient sitting up in chair, appears more energetic today Son at bedside. Pt has not had a BM in a few days will add MiraLAX to regimen. PHYSICAL EXAMINATION: GENERAL: Well developed, poorly nourished, alert & oriented x 3, in no acute distress SKIN: No lesions EYES: Pupils equal reactive to light and accommodation, full extraocular movements, sclera clear, non-icteric, no discharge. EARS/NOSE AND THROAT: Ears normal, nose normal, oropharynx normal, oral me mbranes well hydrated without lesions. NECK: Supple, no masses, thyroid normal CHEST: Inspection within normal limits. CARDIOVASCULAR: Heart: Regular rate and rhythm RESPIRATORY: Lungs clear to auscultation GASTROINTESTINAL AND LIVER: Abdomen: Soft, non tenderness, non-distended, no hernias, no masses, no organomegaly, no ascites, no guarding, no rebound tenderness, normoactive bowel sounds. Rectal: Deferred. GENITOURINARY: Female genitalia within normal limits. EXTREMITIES: No cyanosis, clubbing or edema. Result Diagram: 06/04/18 0504 06/04/18 0504 Results 24hrs Laboratory Tests Test 06/04/18 05:04 White Blood Count 8.3 Red Blood Count 2.78 #L Hemoglobin 8.8 #L Hematocrit 27.4 #L Mean Corpuscular Volume 98.6 Mean Corpuscular Hemoglobin 31.7 Mean Corpuscular Hemoglobin Concent 32.1 Red Cell Distribution Width 17.6 H Platelet Count 59 L Mean Platelet Volume 10.4 Immature Granulocytes % 0.400 Neutrophils % 78.1 H Lymphocytes % 8.7 L Monocytes % 9.8 Eosinophils % 2.5 Basophils % 0.5 Nucleated Red Blood Cells % 0.0 Immature Granulocytes # 0.030 Neutrophils # 6.5 Lymphocytes # 0.7 L Monocytes # 0.8 Eosinophils # 0.2 Basophils # 0.0 Nucleated Red Blood Cells # 0.0 Sodium Level 141 Potassium Level 4.0 Chloride Level 110 Carbon Dioxide Level 23 Anion Gap 8 Blood Urea Nitrogen 49 H Creatinine 1.24 H Est Glomerular Filtrat Rate mL/min Glucose Level 95 Calcium Level 9.0 Exam/Review of Systems Exam Vitals Vital Signs Date Temp Pulse Resp B/P (MAP) Pulse Ox O2 O2 Flow FiO2 Time Delivery Rate 06/04/18 98.2 60 19 101/61 98 07:41 (74) 06/03/18 Nasal 2.0 15:44 Cannula Intake and Output 06/03/18 06/03/18 06/04/18 1414:59 22:59 06:59 IntakeIntake Total 1080 ml BalanceBalance 1080 ml Results Results 24hrs Laboratory Tests Test 06/04/18 05:04 White Blood Count 8.3 Red Blood Count 2.78 #L Hemoglobin 8.8 #L Hematocrit 27.4 #L Mean Corpuscular Volume 98.6 Mean Corpuscular Hemoglobin 31.7 Mean Corpuscular Hemoglobin Concent 32.1 Red Cell Distribution Width 17.6 H Platelet Count 59 L Mean Platelet Volume 10.4 Immature Granulocytes % 0.400 Neutrophils % 78.1 H Lymphocytes % 8.7 L Monocytes % 9.8 Eosinophils % 2.5 Basophils % 0.5 Nucleated Red Blood Cells % 0.0 Immature Granulocytes # 0.030 Neutrophils # 6.5 Lymphocytes # 0.7 L Monocytes # 0.8 Eosinophils # 0.2 Basophils # 0.0 Nucleated Red Blood Cells # 0.0 Sodium Level 141 Potassium Level 4.0 Chloride Level 110 Carbon Dioxide Level 23 Anion Gap 8 Blood Urea Nitrogen 49 H Creatinine 1.24 H Est Glomerular Filtrat Rate mL/min Glucose Level 95 Calcium Level 9.0 Medications Medication Current Medications IV Flush (NS 3 ml) 3 ml PER PROTOCOL IV ; Start 05/28/18 at 19:00 Ondansetron HCl (Zofran Inj) 4 mg Q6H PRN IV NAUSEA/VOMITING; Start 05/28/18 at 19:00 Acetaminophen (Tylenol Tab) 650 mg Q6H PRN PO .PAIN 1-3 OR TEMP; Start 05/28/18 at 19:00 Acetaminophen/ Hydrocodone Bitart ([place] (5/325)) 1 tab Q6H PRN PO .MOD PAIN 4- 6; Start 05/28/18 at 19:00 Morphine Sulfate (morphine) 2 mg Q4H PRN IV .SEVERE PAIN 7-10; Start 05/28/18 at 19:00 Docusate Sodium (Colace) 100 mg Q12H PRN PO .CONSTIPATION; Start 05/28/18 at 19:00 Magnesium Hydroxide (Milk Of Mag) 30 ml DAILY PRN PO .CONSTIPATION; Start 05/28/18 at 19:00 Lorazepam (Ativan) 0.5 mg Q6H PRN IV ANXIETY; Start 05/28/18 at 19:00 Albuterol/ Ipratropium (Duoneb) 3 ml Q4H RESP THERAPY PRN HHN SHORTNESS OF BREATH; Start 05/28/18 at 19:00 Hydralazine HCl (Apresoline) 10 mg Q6H PRN IV ELEVATED BLOOD PRESSURE; Start 05/28/18 at 19:00 Nitroglycerin (Nitroglycerin (Sl Tab) 0.4 Mg) 1 tab Q5M PRN SL ANGINA; Start 05/28/18 at 19:00 Atorvastatin Calcium (Lipitor) 10 mg QHS PO Last administered on 06/03/18at 20:18; Admin Dose 10 MG; Start 05/28/18 at 21:00 Levothyroxine Sodium (Synthroid) 100 mcg BEFORE BREAKFAST PO Last administered on 06/04/18at 06:02; Admin Dose 100 MCG; Start 05/29/18 at 07:00 Calcium Carbonate (Oyster Shell Calcium) 1.25 gm BID PO Last administered on 06/04/18at 08:45; Admin Dose 1.25 GM; Start 05/28/18 at 21:00 Cyanocobalamin (Vitamin B12) 1,000 mcg DAILY PO Last administered on 06/04/18at 08:45; Admin Dose 1,000 MCG; Start 05/29/18 at 09:00 Multivitamins/ Minerals (Theragran-M) 1 tab DAILY PO Last administered on 06/04/18at 08:45; Admin Dose 1 TAB; Start 05/29/18 at 09:00 Pantoprazole (Protonix Tab) 40 mg BID@,18 PO Last administered on 06/04/18at 06:02; Admin Dose 40 MG; Start 06/02/18 at 18:00 Carvedilol (Coreg) 3.125 mg BID PO ; Start 06/04/18 at 10:00 JERROD MORGAN Jun 04, 2018 11:25
[2018-06-04 11:59] VITALS: BP 107/52; PULSE 70; RESP 19
[2018-06-04] MEDS: POLYETHYLENE GLYCOL 17 GM PACKET PO SCH (12:07)
--- NOTE | 2018-06-04 14:46 | CONS ---
Assessment/Plan Assessment/Plan Hospital Course (Demo Recall) # Thrombocytopenia # Diverticular GI bleed # AVR # CHF -I believe the thrombocytopenia is likely secondary to consumption from the brisk GI Bleed -will need to evaluate what her platelet count was as an out patient prior to this admission. will call her PMD -need to r/o DIC. will order DIC panel and fibrinogen -r/o TTP. will check LDH and review peripheral smear -I have reviewed her pedication list and there are no specific medication that should cause thrombocytopenia. pt should continue her current medications -no platelet transfusion needed at this time Consultation Date/Type/Reason Admit Date/Time May 28, 2018 at 19:26 Date of Consultation: Jun 04, 2018 Type of Consult Hematology Reason for Consultation thrombocytopenia Requesting Provider: SHIRA ANTOINE MD Date/Time of Note DATE: 06/04/18 TIME: 14:37 Hx of Present Illness 82 yo female with persistent diverticular bleed. Pt needed blood transfusion 2 weeks ago and again presents with a Hg 5.9. Pt has since received 3 units of PRBCs on this admission. Pt has had the following GI workup done including: EGD 05/29/2018 distal esophagitis/gastritis no active bleeding colonoscopy C olonoscopy 05/11/2018 plan diverticulosis with evidence of recent bleeding, NM bleed scan- Source likely right colon. During the hospitalization pt is noted to have a progressively declining platelet count, hence the reason for this consult. Per the nurse, GI bleed has subsided but pt has not yet had a BM today.Of note patient as a history of paroxysmal AFib on Eliquis, TAVR valve replacement and was on Eliquis which has since been held. Constitutional: poor po Eyes: no complaints ENT: no complaints Respiratory: shortness of breath Cardiovascular: chest pain, lightheadedness Gastrointestinal: decreased appetite Genitourinary: no complaints Musculoskeletal: back pain, bone/joint pain Skin: no complaints Neurologic: no complaints Past Medical History AFib on Eliquis TAVR valve replacement CHF lower GI bleeding Home Meds Reported Medications Cyanocobalamin (Vitamin B-12) (Vitamin B-12) 1,000 Mcg Tab.subl, 1000 MCG SL DAILY 05/28/18 Multivitamin/Iron/Folic Acid (Centrum Adults Tablet) 1 Each Tablet, 1 EACH PO DAILY, TAB 05/28/18 Calcium Carbonate* (Calcium Carbonate*) 600 MG Ca Tab, 600 MG PO BID, TAB 05/28/18 Omeprazole* (Omeprazole*) 40 Mg Capsule.dr, 40 MG PO DAILY, #30 CAP 05/28/18 Atorvastatin Calcium (Atorvastatin Calcium) 10 Mg Tablet, 10 MG PO QHS, #30 TAB 05/28/18 Apixaban* (Eliquis*) 2.5 Mg Tablet, 2.5 MG PO DAILY, TAB 05/28/18 Sacubitril/Valsartan (Entresto 49 mg-51 mg Tablet) 1 Each Tablet, 1 EACH PO DAILY, TAB 05/28/18 Carvedilol* (Carvedilol*) 6.25 Mg Tablet, 6.25 MG PO DAILY, #60 TAB 05/28/18 Furosemide* (Furosemide*) 40 Mg Tablet, 40 MG PO DAILY, TAB 05/28/18 Spironolactone* (Aldactone*) 25 Mg Tablet, 25 MG PO DAILY, #30 TAB 05/28/18 Levothyroxine Sodium* (Levothyroxine Sodium*) 100 Mcg Tablet, 100 MCG PO BEFORE BREAKFAST, #30 TAB 05/28/18 Discontinued Reported Medications Apixaban* (Eliquis*) 2.5 Mg Tablet, 2.5 MG PO BID, TAB 02/22/15 Calcium Carbonate ([id number]) 1 Tab Tablet, 1 TAB PO BID, TAB 02/22/15 Atorvastatin Calcium (Atorvastatin Calcium) 10 Mg Tablet, 10 MG PO QHS, #30 TAB 02/22/15 Carvedilol* (Coreg*) 3.125 Mg Tablet, 3.125 MG PO BID, TAB 02/22/15 Levothyroxine Sodium (Levothroid) 100 Mcg Tablet, 100 MCG PO DAILY 02/22/12 Ferrous Sulfate (Iron) 325 Mg Capsr, 325 MG PO TID 02/22/12 Cyanocobalamin (Cyanocobalamin) 1,000 Mcg Tablet, 1000 MCG PO DAILY 02/22/12 Multivitamins/Minerals (Centrum Silver) 1 Tab Tab, 1 TAB PO DAILY 07/04/11 Discontinued Scripts Pantoprazole* (Pantoprazole*) 40 Mg Tabec, 40 MG PO DAILY@06 for 30 Days Prov:ESTELLA DRAKE 02/27/15 Furosemide* (Lasix*) 40 Mg Tab, 40 MG PO DAILY for 30 Days, TAB Prov:ESTELLA DRAKE 02/27/15 Medications Current Medications IV Flush (NS 3 ml) 3 ml PER PROTOCOL IV ; Start 05/28/18 at 19:00 Ondansetron HCl (Zofran Inj) 4 mg Q6H PRN IV NAUSEA/VOMITING; Start 05/28/18 at 19:00 Acetaminophen (Tylenol Tab) 650 mg Q6H PRN PO .PAIN 1-3 OR TEMP; Start 05/28/18 at 19:00 Acetaminophen/ Hydrocodone Bitart ([place] (5/325)) 1 tab Q6H PRN PO .MOD PAIN 4- 6; Start 05/28/18 at 19:00 Morphine Sulfate (morphine) 2 mg Q4H PRN IV .SEVERE PAIN 7-10; Start 05/28/18 at 19:00 Docusate Sodium (Colace) 100 mg Q12H PRN PO .CONSTIPATION; Start 05/28/18 at 19:00 Magnesium Hydroxide (Milk Of Mag) 30 ml DAILY PRN PO .CONSTIPATION; Start 05/28/18 at 19:00 Lorazepam (Ativan) 0.5 mg Q6H PRN IV ANXIETY; Start 05/28/18 at 19:00 Albuterol/ Ipratropium (Duoneb) 3 ml Q4H RESP THERAPY PRN HHN SHORTNESS OF BREATH; Start 05/28/18 at 19:00 Hydralazine HCl (Apresoline) 10 mg Q6H PRN IV ELEVATED BLOOD PRESSURE; Start 05/28/18 at 19:00 Nitroglycerin (Nitroglycerin (Sl Tab) 0.4 Mg) 1 tab Q5M PRN SL ANGINA; Start 05/28/18 at 19:00 Atorvastatin Calcium (Lipitor) 10 mg QHS PO Last administered on 06/03/18at 20:18; Admin Dose 10 MG; Start 05/28/18 at 21:00 Levothyroxine Sodium (Synthroid) 100 mcg BEFORE BREAKFAST PO Last administered on 06/04/18at 06:02; Admin Dose 100 MCG; Start 05/29/18 at 07:00 Calcium Carbonate (Oyster Shell Calcium) 1.25 gm BID PO Last administered on 06/04/18at 08:45; Admin Dose 1.25 GM; Start 05/28/18 at 21:00 Cyanocobalamin (Vitamin B12) 1,000 mcg DAILY PO Last administered on 06/04/18at 08:45; Admin Dose 1,000 MCG; Start 05/29/18 at 09:00 Multivitamins/ Minerals (Theragran-M) 1 tab DAILY PO Last administered on 06/04/18at 08:45; Admin Dose 1 TAB; Start 05/29/18 at 09:00 Pantoprazole (Protonix Tab) 40 mg BID@06,18 PO Last administered on 06/04/18at 06:02; Admin Dose 40 MG; Start 06/02/18 at 18:00 Carvedilol (Coreg) 3.125 mg BID PO ; Start 06/04/18 at 10:00 Polyethylene Glycol (Miralax) 17 gm DAILY PO Last administered on 06/04/18at 12:07; Admin Dose 17 GM; Start 06/04/18 at 11:30 Allergies: Coded Allergies: No Known Allergy (Unverified , 06/02/18) Past Surgical History Past Surgical Hx: no surgical history Family History Significant Family History: no pertinent family hx Social History Alcohol Use: none Smoking Status: Never smoker Drug Use: none Exam/Review of Systems Exam Vitals Vital Signs Date Temp Pulse Resp B/P (MAP) Pulse Ox O2 O2 Flow FiO2 Time Delivery Rate 06/04/18 98.0 70 19 107/52 97 11:59 (70) 06/03/18 Nasal 2.0 15:44 Cannula Intake and Output 06/03/18 06/03/18 06/04/18 1515:00 23:00 07:00 IntakeIntake Total 1080 ml BalanceBalance 1080 ml Constitutional: alert, frail Head: normocephalic Eyes: nl conjunctiva ENMT: nl external ears & nose Neck: supple Respiratory: clear to auscultation Cardiovascular: regular rate and rhythm Gastrointestinal: soft Musculoskeletal: nl extremities to inspection Extremities: normal pulses Results Result Diagram: 06/04/18 0504 06/04/18 0504 Results 24hrs Laboratory Tests Test 06/04/18 05:04 White Blood Count 8.3 Red Blood Count 2.78 #L Hemoglobin 8.8 #L Hematocrit 27.4 #L Mean Corpuscular Volume 98.6 Mean Corpuscular Hemoglobin 31.7 Mean Corpuscular Hemoglobin Concent 32.1 Red Cell Distribution Width 17.6 H Platelet Count 59 L Mean Platelet Volume 10.4 Immature Granulocytes % 0.400 Neutrophils % 78.1 H Lymphocytes % 8.7 L Monocytes % 9.8 Eosinophils % 2.5 Basophils % 0.5 Nucleated Red Blood Cells % 0.0 Immature Granulocytes # 0.030 Neutrophils # 6.5 Lymphocytes # 0.7 L Monocytes # 0.8 Eosinophils # 0.2 Basophils # 0.0 Nucleated Red Blood Cells # 0.0 Sodium Level 141 Potassium Level 4.0 Chloride Level 110 Carbon Dioxide Level 23 Anion Gap 8 Blood Urea Nitrogen 49 H Creatinine 1.24 H Est Glomerular Filtrat Rate mL/min Glucose Level 95 Calcium Level 9.0 Medications Medication Current Medications IV Flush (NS 3 ml) 3 ml PER PROTOCOL IV ; Start 05/28/18 at 19:00 Ondansetron HCl (Zofran Inj) 4 mg Q6H PRN IV NAUSEA/VOMITING; Start 05/28/18 at 19:00 Acetaminophen (Tylenol Tab) 650 mg Q6H PRN PO .PAIN 1-3 OR TEMP; Start 05/28/18 at 19:00 Acetaminophen/ Hydrocodone Bitart ([place] (5/325)) 1 tab Q6H PRN PO .MOD PAIN 4- 6; Start 05/28/18 at 19:00 Morphine Sulfate (morphine) 2 mg Q4H PRN IV .SEVERE PAIN 7-10; Start 05/28/18 at 19:00 Docusate Sodium (Colace) 100 mg Q12H PRN PO .CONSTIPATION; Start 05/28/18 at 19 :00 Magnesium Hydroxide (Milk Of Mag) 30 ml DAILY PRN PO .CONSTIPATION; Start 05/28/18 at 19:00 Lorazepam (Ativan) 0.5 mg Q6H PRN IV ANXIETY; Start 05/28/18 at 19:00 Albuterol/ Ipratropium (Duoneb) 3 ml Q4H RESP THERAPY PRN HHN SHORTNESS OF BREATH; Start 05/28/18 at 19:00 Hydralazine HCl (Apresoline) 10 mg Q6H PRN IV ELEVATED BLOOD PRESSURE; Start 05/28/18 at 19:00 Nitroglycerin (Nitroglycerin (Sl Tab) 0.4 Mg) 1 tab Q5M PRN SL ANGINA; Start 05/28/18 at 19:00 Atorvastatin Calcium (Lipitor) 10 mg QHS PO Last administered on 06/03/18 20:18; Admin Dose 10 MG; Start 05/28/18 at 21:00 Levothyroxine Sodium (Synthroid) 100 mcg BEFORE BREAKFAST PO Last administered on 06/04/18 06:02; Admin Dose 100 MCG; Start 05/29/18 at 07:00 Calcium Carbonate (Oyster Shell Calcium) 1.25 gm BID PO Last administered on 06/04/18 08:45; Admin Dose 1.25 GM; Start 05/28/18 at 21:00 Cyanocobalamin (Vitamin B12) 1,000 mcg DAILY PO Last administered on 06/04/18 08:45; Admin Dose 1,000 MCG; Start 05/29/18 at 09:00 Multivitamins/ Minerals (Theragran-M) 1 tab DAILY PO Last administered on 06/04/18 08:45; Admin Dose 1 TAB; Start 05/29/18 at 09:00 Pantoprazole (Protonix Tab) 40 mg BID@,18 PO Last administered on 06/04/18 06:02; Admin Dose 40 MG; Start 06/02/18 at 18:00 Carvedilol (Coreg) 3.125 mg BID PO ; Start 06/04/18 at 10:00 Polyethylene Glycol (Miralax) 17 gm DAILY PO Last administered on 06/04/18 12:07; Admin Dose 17 GM; Start 06/04/18 at 11:30 CHARITY OG M.D. Jun 04, 2018 14:46
[2018-06-04 15:29] VITALS: BP 108/55; PULSE 71; RESP 19
--- NOTE | 2018-06-04 15:59 | PN ---
Date/Time of Note Date/Time of Note DATE: 06/04/18 TIME: 15:57 Assessment/Plan VTE Prophylaxis Risk score (from Ns)>0 risk: 5 SCD applied (from Ns): Yes Pharmacological prophylaxis: NA/contraindicated Pharm contraindication: bleeding Lines/Catheters IV [facility] [place] Urinary Cath still in place: No Assessment/Plan Assessment/Plan ASSESSMENT AND PLAN: 82-year-old female coming in with history of paroxysmal atrial fibrillation on Eliquis, transcatheter aortic valve replacement, congestive heart failure, recent lower gastrointestinal bleeding 2 weeks ago, hospitalized for that, status post colonoscopy with internal hemorrhoids and d iverticulosis, presents with continued lower gastrointestinal bleeding and anemia, hemoglobin 5.9. 1. Anemia, lower gastrointestinal bleeding-on presentation the hemoglobin 5.9. -Status post 2 units of PRBC transfusion on admission - Continue to hold all anticoagulants including Eliquis -Per cardiology it is ok to hold eliquis given ongoing bleed, although per them patient at increased risk of CVA though AC contraindicated at this time - Per GI team recommendations: -given positive nuclear tagged RBC scan results (likely right colon diverticular source), they feel no therapeutic intervention other than colectomy will decrease future risk of lower GI [id number] small bowel series as recommended by them to rule out the possibility of any other source of bleeding such as small intestine - Continue Protonix for now - Discussed with son and patient. Colostomy is an unacceptable surgical risk, will continue with no anticoagulation and risk the stroke. - Last transfusion is 06/03 2. Thrombocytopenia - Platelets progressively dropping since admission - Dr. Riddle consulted, proceed with DIC workup. 3. History of congestive heart failure. BNP 10,000 this admission. - Continue to monitor for now. - Continue current cardiac medications cautiously -although we have been holding Entresto since admission secondary to renal insufficiency 4. High cholesterol. -Continue statin 5. History of transcatheter aortic valve replacement (TAVR). - Continue to monitor heart rate. - Carefully continue current cardiac medications per cardiology recommendations 6. History of paroxysmal atrial fibrillation. Presently rate controlled - again, continue to monitor heart rate on telemetry. -Again, holding off on anticoagulation given her gastrointestinal bleeding presently right now. 7. SHANEKA -slowly improving with intermittent doses of IV fluids cautiously given given her CHF history -Monitor for now, still holding Entresto as well 8. Gastrointestinal prophylaxis. Again, continue on PPI IV b.i.d. 9. Deep venous thrombosis prophylaxis. SCDs -avoid anticoagulants given GI bleeding Dispo: Anticipate discharge home (with home health) and son who will provide 24 hour care. Currently patient very deconditioned and still trouble walking. Also with dropping platelets. Result Diagram: 06/04/18 1535 06/04/18 0504 Subjective 24 Hr Interval Summary Free Text/Dictation Blood pressures significantly better. Patient ambulating with son Bakari. On my exam, she's sitting in chair. Exam/Review of Systems Exam Vitals Vital Signs Date Temp Pulse Resp B/P (MAP) Pulse Ox O2 O2 Flow FiO2 Time Delivery Rate 06/04/18 98.2 71 19 108/55 98 15:29 (72) 06/03/18 Nasal 2.0 15:44 Cannula Intake and Output 06/03/18 06/03/18 06/04/18 1515:00 23:00 07:00 IntakeIntake Total 1080 ml BalanceBalance 1080 ml Exam GENERAL: Frail elderly woman lying in bed, NAD HEENT: Pupils equal, round, reactive to light. Extraocular muscles intact. NECK: Supple. No thyromegaly. LUNGS: Clear to auscultation bilaterally. CARDIOVASCULAR: S1 and S2 heard. No rubs or gallops. ABDOMEN: Soft, nontender, nondistended. Normal bowel sounds. No rebound or guarding. MUSCULOSKELETAL: No lower extremity edema bilaterally. Results Results 24hrs Laboratory Tests Test 06/04/18 05:04 06/04/18 15:35 White Blood Count 8.3 Red Blood Count 2.78 #L Hemoglobin 8.8 #L Hematocrit 27.4 #L Mean Corpuscular Volume 98.6 Mean Corpuscular Hemoglobin 31.7 Mean Corpuscular Hemoglobin Concent 32.1 Red Cell Distribution Width 17.6 H Platelet Count 59 L 61 L Mean Platelet Volume 10.4 Immature Granulocytes % 0.400 Neutrophils % 78.1 H Lymphocytes % 8.7 L Monocytes % 9.8 Eosinophils % 2.5 Basophils % 0.5 Nucleated Red Blood Cells % 0.0 Immature Granulocytes # 0.030 Neutrophils # 6.5 Lymphocytes # 0.7 L Monocytes # 0.8 Eosinophils # 0.2 Basophils # 0.0 Nucleated Red Blood Cells # 0.0 Sodium Level 141 Potassium Level 4.0 Chloride Level 110 Carbon Dioxide Level 23 Anion Gap 8 Blood Urea Nitrogen 49 H Creatinine 1.24 H Est Glomerular Filtrat Rate mL/min Glucose Level 95 Calcium Level 9.0 Prothrombin Time Pending Prothrombin Time Ratio Pending INR International Normalized Ratio Pending Activated Partial Thromboplast Time Pending Thrombin Time Pending Fibrinogen Pending Plasma Fibrin Degradation Products Pending D-Dimer Pending Medications Medication Current Medications IV Flush (NS 3 ml) 3 ml PER PROTOCOL IV ; Start 05/28/18 at 19:00 Ondansetron HCl (Zofran Inj) 4 mg Q6H PRN IV NAUSEA/VOMITING; Start 05/28/18 at 19:00 Acetaminophen (Tylenol Tab) 650 mg Q6H PRN PO .PAIN 1-3 OR TEMP; Start 05/28/18 at 19:00 Acetaminophen/ Hydrocodone Bitart ([place] (5/325)) 1 tab Q6H PRN PO .MOD PAIN 4- 6; Start 05/28/18 at 19:00 Morphine Sulfate (morphine) 2 mg Q4H PRN IV .SEVERE PAIN 7-10; Start 05/28/18 at 19:00 Docusate Sodium (Colace) 100 mg Q12H PRN PO .CONSTIPATION; Start 05/28/18 at 19:00 Magnesium Hydroxide (Milk Of Mag) 30 ml DAILY PRN PO .CONSTIPATION; Start 05/28/18 at 19:00 Lorazepam (Ativan) 0.5 mg Q6H PRN IV ANXIETY; Start 05/28/18 at 19:00 Albuterol/ Ipratropium (Duoneb) 3 ml Q4H RESP THERAPY PRN HHN SHORTNESS OF BREATH; Start 05/28/18 at 19:00 Hydralazine HCl (Apresoline) 10 mg Q6H PRN IV ELEVATED BLOOD PRESSURE; Start 05/28/18 at 19:00 Nitroglycerin (Nitroglycerin (Sl Tab) 0.4 Mg) 1 tab Q5M PRN SL ANGINA; Start 05/28/18 at 19:00 Atorvastatin Calcium (Lipitor) 10 mg QHS PO Last administered on 06/03/18at 20:18; Admin Dose 10 MG; Start 05/28/18 at 21:00 Levothyroxine Sodium (Synthroid) 100 mcg BEFORE BREAKFAST PO Last administered on 06/04/18at 06:02; Admin Dose 100 MCG; Start 05/29/18 at 07:00 Calcium Carbonate (Oyster Shell Calcium) 1.25 gm BID PO Last administered on 06/04/18 08:45; Admin Dose 1.25 GM; Start 05/28/18 at 21:00 Cyanocobalamin (Vitamin B12) 1,000 mcg DAILY PO Last administered on 06/04/18 08:45; Admin Dose 1,000 MCG; Start 05/29/18 at 09:00 Multivitamins/ Minerals (Theragran-M) 1 tab DAILY PO Last administered on 06/04/18 08:45; Admin Dose 1 TAB; Start 05/29/18 at 09:00 Pantoprazole (Protonix Tab) 40 mg BID@,18 PO Last administered on 06/04/18 06:02; Admin Dose 40 MG; Start 06/02/18 at 18:00 Carvedilol (Coreg) 3.125 mg BID PO ; Start 06/04/18 at 10:00 Polyethylene Glycol (Miralax) 17 gm DAILY PO Last administered on 06/04/18 12:07; Admin Dose 17 GM; Start 06/04/18 at 11:30 SHIRA ANTOINE MD Jun 04, 2018 15:59
[2018-06-04 19:14] VITALS: BP 100/51; PULSE 61; RESP 19
[2018-06-04] MEDS: ATORVASTATIN 10 MG TAB PO SCH (20:58)
[2018-06-05] MEDS: PANTOPRAZOLE (EC) 40 MG TAB PO SCH ×2 (06:52→18:36)
[2018-06-05] MEDS: DOCUSATE SODIUM 100 MG CAP PO PRN (06:53)
[2018-06-05] MEDS: LEVOTHYROXINE 100 MCG TAB PO SCH (06:53)
[2018-06-05 07:59] VITALS: BP 117/53; PULSE 60; RESP 19
[2018-06-05] MEDS: CALCIUM CARBONATE 1.25 GM TAB PO SCH ×2 (08:34→21:00)
[2018-06-05] MEDS: MULTIVITAMINS/MINERALS TAB PO SCH (08:34)
[2018-06-05] MEDS: CYANOCOBALAMIN 500 MCG TAB PO SCH (08:34)
[2018-06-05] MEDS: POLYETHYLENE GLYCOL 17 GM PACKET PO SCH (08:36)
--- NOTE | 2018-06-05 08:48 | PN ---
DATE: 06/05/2018 SUBJECTIVE: The patient was stable overnight. No events noted. No gross evidence of bleeding. OBJECTIVE: VITAL SIGNS: Blood pressure is 117/53, respirations 19, pulse 60, temperature 98.2. HEENT: Head is normocephalic. NECK: Supple. HEART: Regular rate. LUNGS: Show diminished breath sounds at the base. ABDOMEN: Soft, nontender to palpation without rebound or guarding. EXTREMITIES: Negative for clubbing, cyanosis, no edema. DERMATOLOGIC: No rashes. MUSCULOSKELETAL: No joint effusion. NEUROLOGIC: No change in exam. MEDICATIONS: Reviewed. LABORATORY DATA: Shows a sodium 138, potassium 5.0, BUN 47, creatinine 1.32, white count 8.3, hemogl obin 8.1, and platelet count is 69. ASSESSMENT AND PLAN: 1. Nonoliguric acute kidney injury with previous baseline creatinine of 1.2 to 1.5 mg/dL. Etiology of acute kidney injury is secondary to hemodynamics. Renal function is fluctuating, but overall stab le. Continue current treatment plan, supportive care, renally dose all medicines. 2. Chronic kidney disease. Continue treatment for acute injury as stated above otherwise continue d isease factor modification. 3. Mineral bone disorder. Monitor calcium and phosphorus levels. 4. Anemia with GI bleed. The patient is status post blood transfusion. Underlying etiology of blee ding is believed to be secondary to colon per nuclear bleeding scan. Continue to monitor. Follow up with GI. 5. Atrial fibrillation. Continue medical management. The patient is off anticoagulation. 6. History of congestive heart failure, currently compensated. 7. Hypothyroidism. Continue Synthroid. 8. History of dementia. 9. Dyslipidemia. Continue statin therapy. Dictated By: CATRACHO PALENCIA DO NR/NTS Conf#: [id number] DID#: [id number] CC: SHIRA ANTOINE MD; LES SAUNDERS; CATRACHO PALENCIA DO;*EndCC*
[2018-06-05 11:31] VITALS: BP 98/75; PULSE 60; RESP 19
--- NOTE | 2018-06-05 13:20 | CONS ---
Assessment/Plan Assessment/Plan Hospital Course (Demo Recall) # Thrombocytopenia # Diverticular GI bleed # AVR # CHF -upon review of out patient labs, patient platelets 08/2017 were at 201 -I believe the thrombocytopenia is likely secondary to consumption from the brisk GI Bleed. platelets are stable around 70. -no evidence of DIC. elevated D dimer noted which is likely 2/2 underlying inflammation -LDH only mildly elevated making TTP unlikely. furthermore peripheral smear does not show evidence of schistocytes -no platelet transfusion needed at this time Consultation Date/Type/Reason Admit Date/Time May 28, 2018 at 19:26 Initial Consult Date 06/04/18 Type of Consult Hematology Reason for Consultation thrombocytopenia Requesting Provider: SHIRA ANTOINE MD Date/Time of Note DATE: 06/05/18 TIME: 13:16 24 HR Interval Summary Free Text/Dictation no acute overnight events. HG stable Exam/Review of Systems Exam Vitals Vital Signs Date Temp Pulse Resp B/P (MAP) Pulse Ox O2 O2 Flow FiO2 Time Delivery Rate 06/05/18 98.2 60 19 98/75 (83) 98 11:31 06/03/18 Nasal 2.0 15:44 Cannula Intake and Output 06/04/18 06/04/18 06/05/18 1515:00 23:00 07:00 IntakeIntake Total 1300 ml 250 ml BalanceBalance 1300 ml 250 ml Constitutional: alert, oriented, frail Psych: no complaints Head: normocephalic Eyes: nl conjunctiva ENMT: nl external ears & nose Neck: supple Respiratory: clear to auscultation Cardiovascular: regular rate and rhythm Gastrointestinal: soft Musculoskeletal: nl extremities to inspection Extremities: normal pulses Results Result Diagram: 06/05/18 0526 06/05/18 0526 Results 24hrs Laboratory Tests Test 06/04/18 15:35 06/05/18 05:22 06/05/18 05:26 Platelet Count 61 L 69 L Prothrombin Time 13.2 Prothrombin Time Ratio 1.0 INR International Normalized Ratio 0.99 Activated Partial Thromboplast Time 24.0 Thrombin Time 14.4 Fibrinogen 288.0 Plasma Fibrin Degradation Products <10 D-Dimer 1855.14 H D-Dimer Comment Lactate Dehydrogenase 628 H Iron Level 31 L Total Iron Binding Capacity 219 L Percent Iron Saturation 14 L Ferritin 489.0 H White Blood Count 8.3 Red Blood Count 2.54 L Hemoglobin 8.1 L Hematocrit 25.5 L Mean Corpuscular Volume 100.4 Mean Corpuscular Hemoglobin 31.9 Mean Corpuscular Hemoglobin Concent 31.8 L Red Cell Distribution Width 17.5 H Mean Platelet Volume 10.4 Immature Granulocytes % 0.400 Neutrophils % 79.3 H Lymphocytes % 6.9 L Monocytes % 11.2 H Eosinophils % 1.8 Basophils % 0.4 Nucleated Red Blood Cells % 0.0 Immature Granulocytes # 0.030 Neutrophils # 6.6 Lymphocytes # 0.6 L Monocytes # 0.9 Eosinophils # 0.2 Basophils # 0.0 Nucleated Red Blood Cells # 0.0 Sodium Level 138 Potassium Level 4.0 Chloride Level 110 Carbon Dioxide Level 21 Anion Gap 7 Blood Urea Nitrogen 47 H Creatinine 1.32 H Est Glomerular Filtrat Rate mL/min Glucose Level 97 Calcium Level 9.1 Medications Medication Current Medications IV Flush (NS 3 ml) 3 ml PER PROTOCOL IV ; Start 05/28/18 at 19:00 Ondansetron HCl (Zofran Inj) 4 mg Q6H PRN IV NAUSEA/VOMITING; Start 05/28/18 at 19:00 Acetaminophen (Tylenol Tab) 650 mg Q6H PRN PO .PAIN 1-3 OR TEMP; Start 05/28/18 at 19:00 Acetaminophen/ Hydrocodone Bitart ([place] (5/325)) 1 tab Q6H PRN PO .MOD PAIN 4- 6; Start 05/28/18 at 19:00 Morphine Sulfate (morphine) 2 mg Q4H PRN IV .SEVERE PAIN 7-10; Start 05/28/18 at 19:00 Docusate Sodium (Colace) 100 mg Q12H PRN PO .CONSTIPATION Last administered on 06/05/18at 06:53; Admin Dose 100 MG; Start 05/28/18 at 19:00 Magnesium Hydroxide (Milk Of Mag) 30 ml DAILY PRN PO .CONSTIPATION; Start 05/28/18 at 19:00 Lorazepam (Ativan) 0.5 mg Q6H PRN IV ANXIETY; Start 05/28/18 at 19:00 Albuterol/ Ipratropium (Duoneb) 3 ml Q4H RESP THERAPY PRN HHN SHORTNESS OF BREATH; Start 05/28/18 at 19:00 Hydralazine HCl (Apresoline) 10 mg Q6H PRN IV ELEVATED BLOOD PRESSURE; Start 05/28/18 at 19:00 Nitroglycerin (Nitroglycerin (Sl Tab) 0.4 Mg) 1 tab Q5M PRN SL ANGINA; Start 05/28/18 at 19:00 Atorvastatin Calcium (Lipitor) 10 mg QHS PO Last administered on 06/04/18 20:58; Admin Dose 10 MG; Start 05/28/18 at 21:00 Levothyroxine Sodium (Synthroid) 100 mcg BEFORE BREAKFAST PO Last administered on 06/05/18 06:53; Admin Dose 100 MCG; Start 05/29/18 at 07:00 Calcium Carbonate (Oyster Shell Calcium) 1.25 gm BID PO Last administered on 06/05/18 08:34; Admin Dose 1.25 GM; Start 05/28/18 at 21:00 Cyanocobalamin (Vitamin B12) 1,000 mcg DAILY PO Last administered on 06/05/18 08:34; Admin Dose 1,000 MCG; Start 05/29/18 at 09:00 Multivitamins/ Minerals (Theragran-M) 1 tab DAILY PO Last administered on 06/05/18 08:34; Admin Dose 1 TAB; Start 05/29/18 at 09:00 Pantoprazole (Protonix Tab) 40 mg BID@06,18 PO Last administered on 06/05/18 06:52; Admin Dose 40 MG; Start 06/02/18 at 18:00 Carvedilol (Coreg) 3.125 mg BID PO ; Start 06/04/18 at 10:00 Polyethylene Glycol (Miralax) 17 gm DAILY PO Last administered on 06/05/18 08:36; Admin Dose 17 GM; Start 06/04/18 at 11:30 CHARITY OG M.D. Jun 05, 2018 13:20
--- NOTE | 2018-06-05 15:21 | CONS ---
Consult Date/Type/Reason Admit Date/Time May 28, 2018 at 19:26 Initial Consult Date 05/29/18 Type of Consultation: cv Requesting Provider: SHIRA ANTOINE MD Date/Time of Note DATE: 06/05/18 TIME: 15:20 Subjective Interventional cardiology follow-up progress note Subjective: Discussed with staff and telemetry was reviewed. Patient is off tele now Discussed with the patient's daughter at bedside Patient is unaware of any more bleeding but stool appears to be very dark and she continues to have low H&H She denies any chest pain or pressure to me has any palpitation to me. Objective: General: Elderly female no acute distress HEENT: NC/AT. pupils are equal. round. NECK: . no stridor. CV: RRR. systolic murmur; no gallop or rubs. PULM: no wheezing or rhonchi. GI: SOFT, NT, ND, no rebound or guarding Extremity: trace B/L LE edema. no clubbing. neuro: awake and alert, Psych: calm and pleasant rectal: deferred Abdominal/pelvic CT done May 30, 2018 shows: No evidence of urolithiasis, obstructive uropathy or diverticulitis. Divertic ulosis. Nonvisualization appendix. No bowel mass or obstruction is seen. Cholecystectomy with presumed physiologic intra and extrahepatic bile duct dilatation. Correlation with serum bilirubin levels could be performed if clinically indicated. Aortic valve replacement. Cardiomegaly. Small pericardial effusion. Vascular calcifications. Senescent degenerative changes spine. Tiny right pleural effusion. Objective Vitals Vital Signs Date Temp Pulse Resp B/P (MAP) Pulse Ox O2 O2 Flow FiO2 Time Delivery Rate 06/05/18 98.2 60 19 98/75 (83) 98 11:31 06/03/18 Nasal 2.0 15:44 Cannula Intake and Output 06/04/18 06/04/18 06/05/18 1515:00 23:00 07:00 IntakeIntake Total 1300 ml 250 ml BalanceBalance 1300 ml 250 ml Results/Medications Result Diagram: 06/05/1852506/05/18525 Results 24 hrs Laboratory Tests Test 06/04/18 15:35 06/05/18 05:22 06/05/18 05:26 Platelet Count 61 L 69 L Prothrombin Time 13.2 Prothrombin Time Ratio 1.0 INR International Normalized Ratio 0.99 Activated Partial Thromboplast Time 24.0 Thrombin Time 14.4 Fibrinogen 288.0 Plasma Fibrin Degradation Products <10 D-Dimer 1855.14 H D-Dimer Comment Lactate Dehydrogenase 628 H Iron Level 31 L Total Iron Binding Capacity 219 L Percent Iron Saturation 14 L Ferritin 489.0 H White Blood Count 8.3 Red Blood Count 2.54 L Hemoglobin 8.1 L Hematocrit 25.5 L Mean Corpuscular Volume 100.4 Mean Corpuscular Hemoglobin 31.9 Mean Corpuscular Hemoglobin Concent 31.8 L Red Cell Distribution Width 17.5 H Mean Platelet Volume 10.4 Immature Granulocytes % 0.400 Neutrophils % 79.3 H Lymphocytes % 6.9 L Monocytes % 11.2 H Eosinophils % 1.8 Basophils % 0.4 Nucleated Red Blood Cells % 0.0 Immature Granulocytes # 0.030 Neutrophils # 6.6 Lymphocytes # 0.6 L Monocytes # 0.9 Eosinophils # 0.2 Basophils # 0.0 Nucleated Red Blood Cells # 0.0 Sodium Level 138 Potassium Level 4.0 Chloride Level 110 Carbon Dioxide Level 21 Anion Gap 7 Blood Urea Nitrogen 47 H Creatinine 1.32 H Est Glomerular Filtrat Rate mL/min Glucose Level 97 Calcium Level 9.1 Home Meds Reported Medications Cyanocobalamin (Vitamin B-12) (Vitamin B-12) 1,000 Mcg Tab.subl, 1000 MCG SL DAILY 05/28/18 Multivitamin/Iron/Folic Acid (Centrum Adults Tablet) 1 Each Tablet, 1 EACH PO DA KALYAN, TAB 05/28/18 Calcium Carbonate* (Calcium Carbonate*) 600 MG Ca Tab, 600 MG PO BID, TAB 05/28/18 Omeprazole* (Omeprazole*) 40 Mg Capsule.dr, 40 MG PO DAILY, #30 CAP 05/28/18 Atorvastatin Calcium (Atorvastatin Calcium) 10 Mg Tablet, 10 MG PO QHS, #30 TAB 05/28/18 Apixaban* (Eliquis*) 2.5 Mg Tablet, 2.5 MG PO DAILY, TAB 05/28/18 Sacubitril/Valsartan (Entresto 49 mg-51 mg Tablet) 1 Each Tablet, 1 EACH PO DAILY, TAB 05/28/18 Carvedilol* (Carvedilol*) 6.25 Mg Tablet, 6.25 MG PO DAILY, #60 TAB 05/28/18 Furosemide* (Furosemide*) 40 Mg Tablet, 40 MG PO DAILY, TAB 05/28/18 Spironolactone* (Aldactone*) 25 Mg Tablet, 25 MG PO DAILY, #30 TAB 05/28/18 Levothyroxine Sodium* (Levothyroxine Sodium*) 100 Mcg Tablet, 100 MCG PO BEFORE BREAKFAST, #30 TAB 05/28/18 Medications Current Medications IV Flush (NS 3 ml) 3 ml PER PROTOCOL IV ; Start 05/28/18 at 19:00 Ondansetron HCl (Zofran Inj) 4 mg Q6H PRN IV NAUSEA/VOMITING; Start 05/28/18 at 19:00 Acetaminophen (Tylenol Tab) 650 mg Q6H PRN PO .PAIN 1-3 OR TEMP; Start 05/28/18 at 19:00 Acetaminophen/ Hydrocodone Bitart ([place] (5/325)) 1 tab Q6H PRN PO .MOD PAIN 4- 6; Start 05/28/18 at 19:00 Morphine Sulfate (morphine) 2 mg Q4H PRN IV .SEVERE PAIN 7-10; Start 05/28/18 at 19:00 Docusate Sodium (Colace) 100 mg Q12H PRN PO .CONSTIPATION Last administered on 06/05/18at 06:53; Admin Dose 100 MG; Start 05/28/18 at 19:00 Magnesium Hydroxide (Milk Of Mag) 30 ml DAILY PRN PO .CONSTIPATION; Start 05/28/18 at 19:00 Lorazepam (Ativan) 0.5 mg Q6H PRN IV ANXIETY; Start 05/28/18 at 19:00 Albuterol/ Ipratropium (Duoneb) 3 ml Q4H RESP THERAPY PRN HHN SHORTNESS OF BREATH; Start 05/28/18 at 19:00 Hydralazine HCl (Apresoline) 10 mg Q6H PRN IV ELEVATED BLOOD PRESSURE; Start 05/28/18 at 19:00 Nitroglycerin (Nitroglycerin (Sl Tab) 0.4 Mg) 1 tab Q5M PRN SL ANGINA; Start 05/28/18 at 19:00 Atorvastatin Calcium (Lipitor) 10 mg QHS PO Last administered on 06/04/18at 20:58; Admin Dose 10 MG; Start 05/28/18 at 21:00 Levothyroxine Sodium (Synthroid) 100 mcg BEFORE BREAKFAST PO Last administered on 06/05/18 06:53; Admin Dose 100 MCG; Start 05/29/18 at 07:00 Calcium Carbonate (Oyster Shell Calcium) 1.25 gm BID PO Last administered on 06/05/18 08:34; Admin Dose 1.25 GM; Start 05/28/18 at 21:00 Cyanocobalamin (Vitamin B12) 1,000 mcg DAILY PO Last administered on 06/05/18 08:34; Admin Dose 1,000 MCG; Start 05/29/18 at 09:00 Multivitamins/ Minerals (Theragran-M) 1 tab DAILY PO Last administered on 06/05/18 08:34; Admin Dose 1 TAB; Start 05/29/18 at 09:00 Pantoprazole (Protonix Tab) 40 mg BID@18 PO Last administered on 06/05/18 06:52; Admin Dose 40 MG; Start 06/02/18 at 18:00 Carvedilol (Coreg) 3.125 mg BID PO ; Start 06/04/18 at 10:00 Polyethylene Glycol (Miralax) 17 gm DAILY PO Last administered on 06/05/18 08:36; Admin Dose 17 GM; Start 06/04/18 at 11:30 Assessment/Plan Hospital Course (Demo Recall) 1. Recurrent lower GI bleed on anticoagulation: Currently off Eliquis 2. 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 Severe cardiomyopathy 4. Sick sinus syndrome with permanent pacemaker 5. History of aortic stenosis status post transcutaneous aortic valve replacement 6 permissive hypertension 7. Chronic kidney disease 8. Anemia secondary to GI bleeding 9. anemia: s/p transfusions Recommendations: Will cont coreg at lower dose of 3.125 bid as tolerated Transfusion as needed follow-up with GI recommendations will resume entresto once BP remains stable. Currently too hypotensive to tolerate it Thank you for his referral. We will follow-up as needed over the weekend KAYLAH BAXTER MD [facility] KAYLAH BAXTER MD Jun 05, 2018 15:21
[2018-06-05 15:43] VITALS: BP 109/54; PULSE 88; RESP 19
--- NOTE | 2018-06-05 16:36 | PN ---
Date/Time of Note Date/Time of Note DATE: 06/05/18 TIME: 16:35 Assessment/Plan VTE Prophylaxis Risk score (from Ns)>0 risk: 5 SCD applied (from Ns): Yes Pharmacological prophylaxis: NA/contraindicated Pharm contraindication: bleeding Lines/Catheters [facility] Saline Lock Urinary Cath still in place: No Assessment/Plan Assessment/Plan ASSESSMENT AND PLAN: 82-year-old female coming in with history of paroxysmal atrial fibrillation on Eliquis, transcatheter aortic valve replacement, congestive heart failure, recent lower gastrointestinal bleeding 2 weeks ago, hospitalized for that, status post colonoscopy with internal hemorrhoids and d iverticulosis, presents with continued lower gastrointestinal bleeding and anemia, hemoglobin 5.9. 1. Anemia, lower gastrointestinal bleeding-on presentation the hemoglobin 5.9. -Status post 2 units of PRBC transfusion on admission - Continue to hold all anticoagulants including Eliquis -Per cardiology it is ok to hold eliquis given ongoing bleed, although per them patient at increased risk of CVA though AC contraindicated at this time - Per GI team recommendations: -given positive nuclear tagged RBC scan results (likely right colon diverticular source), they feel no therapeutic intervention other than colectomy will decrease future risk of lower GI [id number] small bowel series as recommended by them to rule out the possibility of any other source of bleeding such as small intestine - Continue Protonix for now - Discussed with son and patient. Colostomy is an unacceptable surgical risk, will continue with no anticoagulation and risk the stroke. - Last transfusion is 06/03 2. Thrombocytopenia - Platelets progressively dropping since admission - Dr. Riddle consulted, proceed with DIC workup. 3. History of congestive heart failure. BNP 10,000 this admission. - Continue to monitor for now. - Continue current cardiac medications cautiously -although we have been holding Entresto since admission secondary to renal insufficiency 4. High cholesterol. -Continue statin 5. History of transcatheter aortic valve replacement (TAVR). - Continue to monitor heart rate. - Carefully continue current cardiac medications per cardiology recommendations 6. History of paroxysmal atrial fibrillation. Presently rate controlled - again, continue to monitor heart rate on telemetry. -Again, holding off on anticoagulation given her gastrointestinal bleeding presently right now. 7. SHANEKA -slowly improving with intermittent doses of IV fluids cautiously given given her CHF history -Monitor for now, still holding Entresto as well 8. Gastrointestinal prophylaxis. Again, continue on PPI IV b.i.d. 9. Deep venous thrombosis prophylaxis. SCDs -avoid anticoagulants given GI bleeding Dispo: Anticipate discharge home (with home health) and son who will provide 24 hour care. If Hgb stable anticipate discharge in 24-48 hours. Result Diagram: 06/05/18 0506/05/18525 Subjective 24 Hr Interval Summary Free Text/Dictation No acute overnight events. Patient walking to doorway with physical therapy today, still very weak. Bakari her son was at bedside, I updated him. Exam/Review of Systems Exam Vitals Vital Signs Date Temp Pulse Resp B/P (MAP) Pulse Ox O2 O2 Flow FiO2 Time Delivery Rate 06/05/18 98.1 88 19 109/54 98 15:43 (72) 06/03/18 Nasal 2.0 15:44 Cannula Intake and Output 06/04/18 06/04/18 06/05/18 1515:00 23:00 07:00 IntakeIntake Total 1300 ml 250 ml BalanceBalance 1300 ml 250 ml Exam GENERAL: Frail elderly woman lying in bed, NAD HEENT: Pupils equal, round, reactive to light. Extraocular muscles intact. NECK: Supple. No thyromegaly. LUNGS: Clear to auscultation bilaterally. CARDIOVASCULAR: S1 and S2 heard. No rubs or gallops. ABDOMEN: Soft, nontender, nondistended. Normal bowel sounds. No rebound or guarding. MUSCULOSKELETAL: No lower extremity edema bilaterally. Results Results 24hrs Laboratory Tests Test 06/05/18 05:22 06/05/18 05:26 Iron Level 31 L Total Iron Binding Capacity 219 L Percent Iron Saturation 14 L Ferritin 489.0 H White Blood Count 8.3 Red Blood Count 2.54 L Hemoglobin 8.1 L Hematocrit 25.5 L Mean Corpuscular Volume 100.4 Mean Corpuscular Hemoglobin 31.9 Mean Corpuscular Hemoglobin Concent 31.8 L Red Cell Distribution Width 17.5 H Platelet Count 69 L Mean Platelet Volume 10.4 Immature Granulocytes % 0.400 Neutrophils % 79.3 H Lymphocytes % 6.9 L Monocytes % 11.2 H Eosinophils % 1.8 Basophils % 0.4 Nucleated Red Blood Cells % 0.0 Immature Granulocytes # 0.030 Neutrophils # 6.6 Lymphocytes # 0.6 L Monocytes # 0.9 Eosinophils # 0.2 Basophils # 0.0 Nucleated Red Blood Cells # 0.0 Sodium Level 138 Potassium Level 4.0 Chloride Level 110 Carbon Dioxide Level 21 Anion Gap 7 Blood Urea Nitrogen 47 H Creatinine 1.32 H Est Glomerular Filtrat Rate mL/min Glucose Level 97 Calcium Level 9.1 Medications Medication Current Medications IV Flush (NS 3 ml) 3 ml PER PROTOCOL IV ; Start 05/28/18 at 19:00 Ondansetron HCl (Zofran Inj) 4 mg Q6H PRN IV NAUSEA/VOMITING; Start 05/28/18 at 19:00 Acetaminophen (Tylenol Tab) 650 mg Q6H PRN PO .PAIN 1-3 OR TEMP; Start 05/28/18 at 19:00 Acetaminophen/ Hydrocodone Bitart ([place] (5/325)) 1 tab Q6H PRN PO .MOD PAIN 4- 6; Start 05/28/18 at 19:00 Morphine Sulfate (morphine) 2 mg Q4H PRN IV .SEVERE PAIN 7-10; Start 05/28/18 at 19:00 Docusate Sodium (Colace) 100 mg Q12H PRN PO .CONSTIPATION Last administered on 06/05/18at 06:53; Admin Dose 100 MG; Start 05/28/18 at 19:00 Magnesium Hydroxide (Milk Of Mag) 30 ml DAILY PRN PO .CONSTIPATION; Start 05/28/18 at 19:00 Lorazepam (Ativan) 0.5 mg Q6H PRN IV ANXIETY; Start 05/28/18 at 19:00 Albuterol/ Ipratropium (Duoneb) 3 ml Q4H RESP THERAPY PRN HHN SHORTNESS OF BREATH; Start 05/28/18 at 19:00 Hydralazine HCl (Apresoline) 10 mg Q6H PRN IV ELEVATED BLOOD PRESSURE; Start 05/28/18 at 19:00 Nitroglycerin (Nitroglycerin (Sl Tab) 0.4 Mg) 1 tab Q5M PRN SL ANGINA; Start 05/28/18 at 19:00 Atorvastatin Calcium (Lipitor) 10 mg QHS PO Last administered on 06/04/18at 20:58; Admin Dose 10 MG; Start 05/28/18 at 21:00 Levothyroxine Sodium (Synthroid) 100 mcg BEFORE BREAKFAST PO Last administered on 06/05/18at 06:53; Admin Dose 100 MCG; Start 05/29/18 at 07:00 Calcium Carbonate (Oyster Shell Calcium) 1.25 gm BID PO Last administered on 06/05/18 08:34; Admin Dose 1.25 GM; Start 05/28/18 at 21:00 Cyanocobalamin (Vitamin B12) 1,000 mcg DAILY PO Last administered on 06/05/18 08:34; Admin Dose 1,000 MCG; Start 05/29/18 at 09:00 Multivitamins/ Minerals (Theragran-M) 1 tab DAILY PO Last administered on 06/05/18 08:34; Admin Dose 1 TAB; Start 05/29/18 at 09:00 Pantoprazole (Protonix Tab) 40 mg BID@06,18 PO Last administered on 06/05/18 06:52; Admin Dose 40 MG; Start 06/02/18 at 18:00 Carvedilol (Coreg) 3.125 mg BID PO ; Start 06/04/18 at 10:00 Polyethylene Glycol (Miralax) 17 gm DAILY PO Last administered on 06/05/18 08:36; Admin Dose 17 GM; Start 06/04/18 at 11:30 SHIRA ANTOINE MD Jun 05, 2018 16:36
[2018-06-05 17:22] VITALS: BP 110/55; RESP 19
[2018-06-05 17:23] VITALS: PULSE 67
[2018-06-05 19:10] VITALS: BP_SYST 116; BP_SYST 156; BP_DIAS 58; BP_DIAS 76; PULSE 68; PULSE 71; RESP 16; RESP 18
[2018-06-05] MEDS: ATORVASTATIN 10 MG TAB PO SCH (21:21)
[2018-06-06 02:30] VITALS: BP 104/55; PULSE 64; RESP 18
[2018-06-06] MEDS: LEVOTHYROXINE 100 MCG TAB PO SCH (06:43)
[2018-06-06] MEDS: PANTOPRAZOLE (EC) 40 MG TAB PO SCH ×2 (06:43→17:28)
[2018-06-06] MEDS: DOCUSATE SODIUM 100 MG CAP PO PRN ×2 (06:47→20:45)
[2018-06-06 08:46] VITALS: BP 101/53; PULSE 60; RESP 18
[2018-06-06] MEDS: POLYETHYLENE GLYCOL 17 GM PACKET PO SCH (09:29)
[2018-06-06] MEDS: CYANOCOBALAMIN 500 MCG TAB PO SCH (09:29)
[2018-06-06] MEDS: CALCIUM CARBONATE 1.25 GM TAB PO SCH ×2 (09:29→20:45)
[2018-06-06] MEDS: MULTIVITAMINS/MINERALS TAB PO SCH (09:29)
--- NOTE | 2018-06-06 09:37 | PN ---
DATE: 06/06/2018 SUBJECTIVE: The patient is stable, no events overnight. No fevers, chills, nausea, vomiting. OBJECTIVE: VITAL SIGNS: Blood pressure is 104/55, respiration 18, pulse 64, temperature 98.2. HEENT: Head is normocephalic. NECK: Supple. HEART: Regular rate. LUNGS: Show diminished breath sounds at the base. ABDOMEN: Soft, nontender to palpation. No rebound or guarding. EXTREMITIES: Negative for clubbing, cyanosis, no edema. DERMATOLOGIC: No rashes. MUSCULOSKELETAL: No joint effusions. NEUROLOGIC: No change in exam. MEDICATIONS: The patient's medications have been reviewed. LABORATORY DATA: Has been reviewed. ASSESSMENT AND PLAN: 1. Nonoliguric acute kidney injury. Previous baseline creatinine 1.2 and 1.5 mg per deciliter. Ayesha ology of SHANEKA is secondary to hemodynamics. Renal function is fluctuating, but overall stable. Devon nue current treatment plan, supportive care and renally dose all meds. 2. Chronic kidney disease. The patient is currently in acute SHANEKA secondary to above. Continue curre nt treatment plan. Otherwise, continue disease factor modification. 3. Mineral bone disorder, monitor calcium and phosphorus levels. 4. Anemia with GI bleed. The patient is status post blood transfusion. Underlying etiology of blee ding is believed to be secondary to colon from recent nuclear medicine bleeding scan. Continue to mo nitor. Follow up with GI to monitor hemoglobin and hematocrit levels. 5. Atrial fibrillation. Continue medical management. 6. History of congestive heart failure, currently compensated. 7. Hypothyroidism. Continue Synthroid. 8. History of dementia. 9. Dyslipidemia. Continue statin therapy. Dictated By: CATRACHO LILLY/SHAYNA Conf#: [id number] DID#: [id number]
--- NOTE | 2018-06-06 10:44 | PN ---
Date/Time of Note Date/Time of Note DATE: 06/06/18 TIME: 10:40 Assessment/Plan [place] [facility] [place]: 4 [place] [facility] [place] Yes Pharmacological prophylaxis: NA/contraindicated Pharm contraindication: bleeding Lines/Catheters IV [facility]ter Type (from [facility] Saline Lock Urinary Cath still in place: No Assessment/Plan Assessment/Plan ASSESSMENT AND PLAN: 82-year-old female coming in with history of paroxysmal atrial fibrillation on Eliquis, transcatheter aortic valve replacement, congestive heart failure, recent lower gastrointestinal bleeding 2 weeks ago, hospitalized for that, status post colonoscopy with internal hemorrhoids and d iverticulosis, presents with continued lower gastrointestinal bleeding and anemia, hemoglobin 5.9. 1. Anemia, lower gastrointestinal bleeding-on presentation the hemoglobin 5.9. -Status post 2 units of PRBC transfusion on admission - Continue to hold all anticoagulants including Eliquis -Per cardiology it is ok to hold eliquis given ongoing bleed, although per them patient at increased risk of CVA though AC contraindicated at this time - Per GI team recommendations: -given positive nuclear tagged RBC scan results (likely right colon diverticular source), they feel no therapeutic intervention other than colectomy will decrease future risk of lower GI [id number] small bowel series as recommended by them to rule out the possibility of any other source of bleeding such as small intestine - Continue Protonix for now - Last transfusion is 06/03 - Discussed with son and patient 06/06. Given option between colectomy, waiting longer, and home hospice. Patient says "I'm 82, how much longer do I really need? ....But if there's something to be done I don't want to go too early". Son is considering surgery evaluation but will wait until more family comes. 2. Thrombocytopenia - Platelets progressively dropping since admission - Dr. Riddle consulted, proceed with DIC workup. 3. History of congestive heart failure. BNP 10,000 this admission. - Continue current cardiac medications cautiously -although we have been holding Entresto since admission secondary to renal insufficiency 4. High cholesterol. -Continue statin 5. History of transcatheter aortic valve replacement (TAVR). - Carefully continue current cardiac medications per cardiology recommend ations 6. History of paroxysmal atrial fibrillation. Presently rate controlled - again, continue to monitor heart rate on telemetry. -Again, holding off on anticoagulation given her gastrointestinal bleeding presently right now. 7. SHANEKA -slowly improving with intermittent doses of IV fluids cautiously given given her CHF history -Monitor for now, still holding Entresto as well 8. Gastrointestinal prophylaxis. Again, continue on PPI IV b.i.d. 9. Deep venous thrombosis prophylaxis. SCDs -avoid anticoagulants given GI bleeding Dispo: Hgb continues to drop off antiplatelets, anticoag. Patient and children to decide surgery vs hospice. Result Diagram: 06/06/18 0706/05/18 0526 Subjective 24 Hr Interval Summary Free Text/Dictation No acute overnight events. Spoke to patient and son at bedside about the plan . Exam/Review of Systems Exam Vitals Vital Signs Date Temp Pulse Resp B/P (MAP) Pulse Ox O2 O2 Flow FiO2 Time Delivery Rate 06/06/18 98.5 60 18 101/53 96 Room Air 08:46 (69) 06/03/18 2.0 15:44 Intake and Output 06/05/18 06/05/18 06/06/18 1515:00 23:00 07:00 IntakeIntake Total 540 ml BalanceBalance 540 ml Exam GENERAL: Frail elderly woman lying in bed, NAD HEENT: Pupils equal, round, reactive to light. Extraocular muscles intact. NECK: Supple. No thyromegaly. LUNGS: Clear to auscultation bilaterally. CARDIOVASCULAR: S1 and S2 heard. No rubs or gallops. ABDOMEN: Soft, nontender, nondistended. Normal bowel sounds. No rebound or guarding. MUSCULOSKELETAL: No lower extremity edema bilaterally. Results Results 24hrs Laboratory Tests Test 06/06/18 07:19 White Blood Count 6.8 Red Blood Count 2.21 L Hemoglobin 7.3 L Hematocrit 22.3 L Mean Corpuscular Volume 100.9 Mean Corpuscular Hemoglobin 33.0 Mean Corpuscular Hemoglobin Concent 32.7 Red Cell Distribution Width 17.3 H Platelet Count 75 L Mean Platelet Volume 10.1 Immature Granulocytes % 0.600 H Neutrophils % 74.3 Lymphocytes % 10.3 L Monocytes % 11.6 H Eosinophils % 2.8 Basophils % 0.4 Nucleated Red Blood Cells % 0.0 Immature Granulocytes # 0.040 H Neutrophils # 5.1 Lymphocytes # 0.7 L Monocytes # 0.8 Eosinophils # 0.2 Basophils # 0.0 Nucleated Red Blood Cells # 0.0 Medications Medication Current Medications IV Flush (NS 3 ml) 3 ml PER PROTOCOL IV ; Start 05/28/18 at 19:00 Ondansetron HCl (Zofran Inj) 4 mg Q6H PRN IV NAUSEA/VOMITING; Start 05/28/18 at 19:00 Acetaminophen (Tylenol Tab) 650 mg Q6H PRN PO .PAIN 1-3 OR TEMP; Start 05/28/18 at 19:00 Acetaminophen/ Hydrocodone Bitart ([place] (5/325)) 1 tab Q6H PRN PO .MOD PAIN 4- 6; Start 05/28/18 at 19:00 Docusate Sodium (Colace) 100 mg Q12H PRN PO .CONSTIPATION Last administered on 06/06/18 06:47; Admin Dose 100 MG; Start 05/28/18 at 19:00 Magnesium Hydroxide (Milk Of Mag) 30 ml DAILY PRN PO .CONSTIPATION Last administered on 06/06/18 06:47; Admin Dose 30 ML; Start 05/28/18 at 19:00 Albuterol/ Ipratropium (Duoneb) 3 ml Q4H RESP THERAPY PRN HHN SHORTNESS OF BREATH; Start 05/28/18 at 19:00 Hydralazine HCl (Apresoline) 10 mg Q6H PRN IV ELEVATED BLOOD PRESSURE; Start 05/28/18 at 19:00 Nitroglycerin (Nitroglycerin (Sl Tab) 0.4 Mg) 1 tab Q5M PRN SL ANGINA; Start 05/28/18 at 19:00 Atorvastatin Calcium (Lipitor) 10 mg QHS PO Last administered on 06/05/18 21:21; Admin Dose 10 MG; Start 05/28/18 at 21:00 Levothyroxine Sodium (Synthroid) 100 mcg BEFORE BREAKFAST PO Last administered on 06/06/18 06:43; Admin Dose 100 MCG; Start 05/29/18 at 07:00 Calcium Carbonate (Oyster Shell Calcium) 1.25 gm BID PO Last administered on 06/06/18 09:29; Admin Dose 1.25 GM; Start 05/28/18 at 21:00 Cyanocobalamin (Vitamin B12) 1,000 mcg DAILY PO Last administered on 06/06/18 09:29; Admin Dose 1,000 MCG; Start 05/29/18 at 09:00 Multivitamins/ Minerals (Theragran-M) 1 tab DAILY PO Last administered on 06/06/18 09:29; Admin Dose 1 TAB; Start 05/29/18 at 09:00 Pantoprazole (Protonix Tab) 40 mg BID@06,18 PO Last administered on 06/06/18 06:43; Admin Dose 40 MG; Start 06/02/18 at 18:00 Carvedilol (Coreg) 3.125 mg BID PO Last administered on 06/05/18at 21:21; Admin Dose 3.125 MG; Start 06/04/18 at 10:00 Polyethylene Glycol (Miralax) 17 gm DAILY PO Last administered on 06/06/18 09:29; Admin Dose 17 GM; Start 06/04/18 at 11:30 SHIRA ANTOINE MD Jun 06, 2018 10:44
--- NOTE | 2018-06-06 12:01 | CONS ---
Assessment/Plan Assessment/Plan Assessment/Plan (Daily) # Thrombocytopenia- Platelet 75 today --no platelet transfusion needed at this time -upon review of out patient labs, patient platelets 08/2017 were at 201 -thrombocytopenia is likely secondary to consumption from the brisk GI Bleed. # Diverticular GI bleed # Anemia- Hgb 7.3 today # AVR # CHF -no evidence of DIC. elevated D dimer noted which is likely 2/2 underlying inflammation -LDH only mildly elevated making TTP unlikely. furthermore peripheral smear does not show evidence of schistocytes Patient seen in collaboration with Dr Riddle. dw staff Consultation Date/Type/Reason Admit Date/Time May 28, 2018 at 19:26 Date/Time of Note DATE: 06/06/18 TIME: 11:57 Hx of Present Illness -resting in bed -Hgb is low no active GI bleed reported but pa has blck stools - pending family decision for Hospice -family at bed side- all Qs answered -no new events reported last night -dw staff Constitutional: requiring O2 Eyes: no complaints Past Medical History Home Meds Reported Medications Cyanocobalamin (Vitamin B-12) (Vitamin B-12) 1,000 Mcg Tab.subl, 1000 MCG SL DAILY 05/28/18 Multivitamin/Iron/Folic Acid (Centrum Adults Tablet) 1 Each Tablet, 1 EACH PO DAILY, TAB 05/28/18 Calcium Carbonate* (Calcium Carbonate*) 600 MG Ca Tab, 600 MG PO BID, TAB 05/28/18 Omeprazole* (Omeprazole*) 40 Mg Capsule.dr, 40 MG PO DAILY, #30 CAP 05/28/18 Atorvastatin Calcium (Atorvastatin Calcium) 10 Mg Tablet, 10 MG PO QHS, #30 TAB 05/28/18 Apixaban* (Eliquis*) 2.5 Mg Tablet, 2.5 MG PO DAILY, TAB 05/28/18 Sacubitril/Valsartan (Entresto 49 mg-51 mg Tablet) 1 Each Tablet, 1 EACH PO DAILY, TAB 05/28/18 Carvedilol* (Carvedilol*) 6.25 Mg Tablet, 6.25 MG PO DAILY, #60 TAB 05/28/18 Furosemide* (Furosemide*) 40 Mg Tablet, 40 MG PO DAILY, TAB 05/28/18 Spironolactone* (Aldactone*) 25 Mg Tablet, 25 MG PO DAILY, #30 TAB 05/28/18 Levothyroxine Sodium* (Levothyroxine Sodium*) 100 Mcg Tablet, 100 MCG PO BEFORE BREAKFAST, #30 TAB 05/28/18 Medications Current Medications IV Flush (NS 3 ml) 3 ml PER PROTOCOL IV ; Start 05/28/18 at 19:00 Ondansetron HCl (Zofran Inj) 4 mg Q6H PRN IV NAUSEA/VOMITING; Start 05/28/18 at 19:00 Acetaminophen (Tylenol Tab) 650 mg Q6H PRN PO .PAIN 1-3 OR TEMP; Start 05/28/18 at 19:00 Acetaminophen/ Hydrocodone Bitart ([place] (5/325)) 1 tab Q6H PRN PO .MOD PAIN 4- 6; Start 05/28/18 at 19:00 Docusate Sodium (Colace) 100 mg Q12H PRN PO .CONSTIPATION Last administered on 06/06/18 06:47; Admin Dose 100 MG; Start 05/28/18 at 19:00 Magnesium Hydroxide (Milk Of Mag) 30 ml DAILY PRN PO .CONSTIPATION Last administered on 06/06/18 06:47; Admin Dose 30 ML; Start 05/28/18 at 19:00 Albuterol/ Ipratropium (Duoneb) 3 ml Q4H RESP THERAPY PRN HHN SHORTNESS OF BREATH; Start 05/28/18 at 19:00 Hydralazine HCl (Apresoline) 10 mg Q6H PRN IV ELEVATED BLOOD PRESSURE; Start 05/28/18 at 19:00 Nitroglycerin (Nitroglycerin (Sl Tab) 0.4 Mg) 1 tab Q5M PRN SL ANGINA; Start 05/28/18 at 19:00 Atorvastatin Calcium (Lipitor) 10 mg QHS PO Last administered on 06/05/18 21:21; Admin Dose 10 MG; Start 05/28/18 at 21:00 Levothyroxine Sodium (Synthroid) 100 mcg BEFORE BREAKFAST PO Last administered on 06/06/18 06:43; Admin Dose 100 MCG; Start 05/29/18 at 07:00 Calcium Carbonate (Oyster Shell Calcium) 1.25 gm BID PO Last administered on 06/06/18 09:29; Admin Dose 1.25 GM; Start 05/28/18 at 21:00 Cyanocobalamin (Vitamin B12) 1,000 mcg DAILY PO Last administered on 06/06/18at 09:29; Admin Dose 1,000 MCG; Start 05/29/18 at 09:00 Multivitamins/ Minerals (Theragran-M) 1 tab DAILY PO Last administered on 06/06/18at 09:29; Admin Dose 1 TAB; Start 05/29/18 at 09:00 Pantoprazole (Protonix Tab) 40 mg BID@06,18 PO Last administered on 06/06/18at 06:43; Admin Dose 40 MG; Start 06/02/18 at 18:00 Carvedilol (Coreg) 3.125 mg BID PO Last administered on 06/05/18at 21:21; Admin Dose 3.125 MG; Start 06/04/18 at 10:00 Polyethylene Glycol (Miralax) 17 gm DAILY PO Last administered on 06/06/18at 09:29; Admin Dose 17 GM; Start 06/04/18 at 11:30 Allergies: Coded Allergies: No Known Allergy (Unverified , 06/02/18) Past Surgical History Past Surgical Hx: no surgical history Social History Alcohol Use: none Smoking Status: Never smoker Drug Use: none Exam/Review of Systems Exam Vitals Vital Signs Date Temp Pulse Resp B/P (MAP) Pulse Ox O2 O2 Flow FiO2 Time Delivery Rate 06/06/18 98.5 60 18 101/53 96 Room Air 08:46 (69) 06/03/18 2.0 15:44 Intake and Output 06/05/18 06/05/18 06/06/18 1515:00 23:00 07:00 IntakeIntake Total 540 ml BalanceBalance 540 ml Constitutional: alert, well developed, frail Eyes: nl lids, nl sclera ENMT: nl external ears & nose Neck: non-tender Respiratory: diminished breath sounds (at bases) Cardiovascular: nl pulses, other (s1s2) Gastrointestinal: soft Musculoskeletal: muscle weakness Extremities: normal pulses Neurological: other (alert) Results Result Diagram: 06/06/18 0719 06/05/18 0526 Results 24hrs Laboratory Tests Test 06/06/18 07:19 White Blood Count 6.8 Red Blood Count 2.21 L Hemoglobin 7.3 L Hematocrit 22.3 L Mean Corpuscular Volume 100.9 Mean Corpuscular Hemoglobin 33.0 Mean Corpuscular Hemoglobin Concent 32.7 Red Cell Distribution Width 17.3 H Platelet Count 75 L Mean Platelet Volume 10.1 Immature Granulocytes % 0.600 H Neutrophils % 74.3 Lymphocytes % 10.3 L Monocytes % 11.6 H Eosinophils % 2.8 Basophils % 0.4 Nucleated Red Blood Cells % 0.0 Immature Granulocytes # 0.040 H Neutrophils # 5.1 Lymphocytes # 0.7 L Monocytes # 0.8 Eosinophils # 0.2 Basophils # 0.0 Nucleated Red Blood Cells # 0.0 Medications Medication Current Medications IV Flush (NS 3 ml) 3 ml PER PROTOCOL IV ; Start 05/28/18 at 19:00 Ondansetron HCl (Zofran Inj) 4 mg Q6H PRN IV NAUSEA/VOMITING; Start 05/28/18 at 19:00 Acetaminophen (Tylenol Tab) 650 mg Q6H PRN PO .PAIN 1-3 OR TEMP; Start 05/28/18 at 19:00 Acetaminophen/ Hydrocodone Bitart ([place] (5/325)) 1 tab Q6H PRN PO .MOD PAIN 4- 6; Start 05/28/18 at 19:00 Docusate Sodium (Colace) 100 mg Q12H PRN PO .CONSTIPATION Last administered on 06/06/18 06:47; Admin Dose 100 MG; Start 05/28/18 at 19:00 Magnesium Hydroxide (Milk Of Mag) 30 ml DAILY PRN PO .CONSTIPATION Last administered on 06/06/18 06:47; Admin Dose 30 ML; Start 05/28/18 at 19:00 Albuterol/ Ipratropium (Duoneb) 3 ml Q4H RESP THERAPY PRN HHN SHORTNESS OF BREATH; Start 05/28/18 at 19:00 Hydralazine HCl (Apresoline) 10 mg Q6H PRN IV ELEVATED BLOOD PRESSURE; Start 05/28/18 at 19:00 Nitroglycerin (Nitroglycerin (Sl Tab) 0.4 Mg) 1 tab Q5M PRN SL ANGINA; Start at 19:00 Atorvastatin Calcium (Lipitor) 10 mg QHS PO Last administered on 06/05/18 21:21; Admin Dose 10 MG; Start 05/28/18 at 21:00 Levothyroxine Sodium (Synthroid) 100 mcg BEFORE BREAKFAST PO Last administered on 06/06/18at 06:43; Admin Dose 100 MCG; Start 05/29/18 at 07:00 Calcium Carbonate (Oyster Shell Calcium) 1.25 gm BID PO Last administered on 06/06/18 09:29; Admin Dose 1.25 GM; Start 05/28/18 at 21:00 Cyanocobalamin (Vitamin B12) 1,000 mcg DAILY PO Last administered on 06/06/18 09:29; Admin Dose 1,000 MCG; Start 05/29/18 at 09:00 Multivitamins/ Minerals (Theragran-M) 1 tab DAILY PO Last administered on 06/06/18 09:29; Admin Dose 1 TAB; Start 05/29/18 at 09:00 Pantoprazole (Protonix Tab) 40 mg BID@18 PO Last administered on 06/06/18 06:43; Admin Dose 40 MG; Start 06/02/18 at 18:00 Carvedilol (Coreg) 3.125 mg BID PO Last administered on 06/05/18 21:21; Admin Dose 3.125 MG; Start 06/04/18 at 10:00 Polyethylene Glycol (Miralax) 17 gm DAILY PO Last administered on 06/06/18 09:29; Admin Dose 17 GM; Start 06/04/18 at 11:30 SOHAN BASILIO Jun 06, 2018 12:01
[2018-06-06 14:00] VITALS: BP 110/56; PULSE 66; RESP 18
[2018-06-06 20:33] VITALS: BP 133/62; PULSE 74; RESP 20
[2018-06-06] MEDS: ATORVASTATIN 10 MG TAB PO SCH (20:45)
[2018-06-07] VITALS (10 sets, daily range): BP systolic 107–134; BP diastolic 55–84; PULSE 59–77; RESP 16–20
[2018-06-07] MEDS: PANTOPRAZOLE (EC) 40 MG TAB PO SCH ×2 (06:57→19:02)
[2018-06-07] MEDS: DOCUSATE SODIUM 100 MG CAP PO PRN (06:57)
[2018-06-07] MEDS: LEVOTHYROXINE 100 MCG TAB PO SCH (06:57)
[2018-06-07] MEDS ORDERED: SOD CHLORIDE 0.9% 250 ML IV* ONE (08:12)
[2018-06-07] MEDS: CYANOCOBALAMIN 500 MCG TAB PO SCH (08:37)
[2018-06-07] MEDS: CALCIUM CARBONATE 1.25 GM TAB PO SCH ×2 (08:37→21:35)
[2018-06-07] MEDS: MULTIVITAMINS/MINERALS TAB PO SCH (08:38)
[2018-06-07] MEDS: POLYETHYLENE GLYCOL 17 GM PACKET PO SCH (08:39)
[2018-06-07] MEDS ORDERED: LIDOCAINE 1% (MPF) 5 ML VIAL SC ONE (09:30)
--- NOTE | 2018-06-07 10:54 | PN ---
DATE: 06/07/2018 SUBJECTIVE: The patient is pending blood transfusion. No other events noted. OBJECTIVE: VITAL SIGNS: Blood pressure is 125/58, pulse 60, respirations 18, temperature 97.9. HEENT: Head is normocephalic. NECK: Supple. HEART: Regular rate. LUNGS: Show diminished breath sounds at the base. ABDOMEN: Soft, nontender to palpation. No rebound or guarding. EXTREMITIES: Negative for clubbing, cyanosis. No edema. DERMATOLOGIC: No rashes. MUSCULOSKELETAL: No joint effusions. NEUROLOGIC: No change in exam. MEDICATIONS: Reviewed. LABORATORY DATA: Has been reviewed. The patient had a hemoglobin of 6.8. ASSESSMENT AND PLAN: 1. Nonoliguric acute kidney injury. The patient has a previous baseline creatinine of 1.2 to 1.5 mg /dL. Etiology of acute kidney injury is secondary to hemodynamics. Renal function has been stable. Continue to monitor. 2. Chronic kidney disease. The patient's renal function has stabilized. Continue current treatment plan. Continue disease factor modification. 3. Mineral bone disorder. Monitor calcium and phosphorus levels. 4. Anemia with ongoing gastrointestinal bleed. The patient is pending blood transfusion. Continue to monitor. 5. Atrial fibrillation. Continue medical management. 6. History of congestive heart failure, currently compensated. Continue to monitor. 7. Hypothyroidism. Continue Synthroid. 8. History of dementia. 9. Dyslipidemia. Continue statin therapy. Dictated By: CATRACHO LILLY/NTS Conf#: [id number] DID#: [id number] CC: LES SAUNDERS;*EndCC*
--- NOTE | 2018-06-07 11:06 | PN ---
Date/Time of Note Date/Time of Note DATE: 06/07/18 TIME: 11:01 Assessment/Plan VTE Prophylaxis Risk score (from Ns)>0 risk: 3 SCD applied (from Ns): Yes Pharmacological prophylaxis: NA/contraindicated Pharm contraindication: bleeding Lines/Catheters [facility] [place] Urinary Cath still in place: No Assessment/Plan Assessment/Plan ASSESSMENT AND PLAN: 82-year-old female coming in with history of paroxysmal atrial fibrillation on Eliquis, transcatheter aortic valve replacement, congestive heart failure, recent lower gastrointestinal bleeding 2 weeks ago, hospitalized for that, status post colonoscopy with internal hemorrhoids and d iverticulosis, presents with continued lower gastrointestinal bleeding and anemia, hemoglobin 5.9. 1. Anemia, lower gastrointestinal bleeding-on presentation the hemoglobin 5.9. - Continues to require pRBC transfusions; last Friday and today (Friday) - Continue to hold all anticoagulants including Eliquis (since admission, 05/28) - Per GI team recommendations: -given positive nuclear tagged RBC scan results (likely right colon diverticular source), they feel no therapeutic intervention other than colectomy will decrease future risk of lower GI bleeding - Continue Protonix for now - Discussed with son and patient 06/06. Given option between colectomy, waiting longer, and home hospice. Patient says "I'm 82, how much longer do I really need? ....But if there's something to be done I don't want to go too early". Son is considering surgery evaluation but will wait until more fam judy comes. - Plan to talk to IR tomorrow (Friday) about possible embolization for diverticular bleed. 2. Thrombocytopenia - Platelets progressively dropping since admission. Now coming back up. - Dr. Riddle consulted, proceed with DIC workup. 3. History of congestive heart failure. BNP 10,000 this admission. - Continue current cardiac medications cautiously -although we have been holding Entresto since admission secondary to renal insufficiency 4. High cholesterol. -Continue statin 5. History of transcatheter aortic valve replacement (TAVR). - Carefully continue current cardiac medications per cardiology recommendations 6. History of paroxysmal atrial fibrillation. Presently rate controlled - again, continue to monitor heart rate on telemetry. -Again, holding off on anticoagulation given her gastrointestinal bleeding presently right now. 7. SHANEKA -slowly improving with intermittent doses of IV fluids cautiously given given her CHF history -Monitor for now, still holding Entresto as well 8. Gastrointestinal prophylaxis. Again, continue on PPI IV b.i.d. 9. Deep venous thrombosis prophylaxis. SCDs -avoid anticoagulants given GI bleeding Dispo: Hgb continues to drop off antiplatelets, anticoag. Children want to get evaluation for IR embolization. If not possible, they will consider surgery although I warned she is very high risk and possible a surgeon would not choose to even operate. They may choose to take her home and return to the ED as needed for blood transfusions. They do not want hospice currently. Result Diagram: 06/07/18 0452 06/07/18 045 Subjective 24 Hr Interval Summary Free Text/Dictation Had bowel movements last night and this morning. Per family, still having trace maroon colored stool. Patient otherwise feeling well, able to ambulate to bathroom with minimal assistance. Exam/Review of Systems Exam Vitals Vital Signs Date Temp Pulse Resp B/P (MAP) Pulse Ox O2 O2 Flow FiO2 Time Delivery Rate 06/07/18 97.9 60 18 125/58 97 Room Air 08:14 (80) 06/03/18 2.0 15:44 Intake and Output 06/06/18 06/06/18 06/07/18 1414:59 22:59 06:59 IntakeIntake Total 830 ml 500 ml OutputOutput Total 500 ml 450 ml BalanceBalance -500 ml 380 ml 500 ml Exam GENERAL: Frail elderly woman lying in bed, NAD HEENT: Pupils equal, round, reactive to light. Extraocular muscles intact. NECK: Supple. No thyromegaly. LUNGS: Clear to auscultation bilaterally. CARDIOVASCULAR: S1 and S2 heard. No rubs or gallops. ABDOMEN: Soft, nontender, nondistended. Normal bowel sounds. No rebound or guarding. MUSCULOSKELETAL: No lower extremity edema bilaterally. Results Results 24hrs Laboratory Tests Test 06/06/18 13:45 06/07/18 04:52 Stool Occult Blood POSITIVE White Blood Count 5.9 Red Blood Count 1.99 L Hemoglobin 6.3 *L Hematocrit 20.4 L Mean Corpuscular Volume 102.5 H Mean Corpuscular Hemoglobin 31.7 Mean Corpuscular Hemoglobin Concent 30.9 L Red Cell Distribution Width 17.2 H Platelet Count 80 L Mean Platelet Volume 9.8 Immature Granulocytes % 0.500 H Neutrophils % 74.0 Lymphocytes % 11.5 L Monocytes % 11.0 Eosinophils % 2.5 Basophils % 0.5 Nucleated Red Blood Cells % 0.0 Immature Granulocytes # 0.030 Neutrophils # 4.4 Lymphocytes # 0.7 L Monocytes # 0.7 Eosinophils # 0.2 Basophils # 0.0 Nucleated Red Blood Cells # 0.0 Sodium Level 137 Potassium Level 4.5 Chloride Level 108 Carbon Dioxide Level 23 Anion Gap 6 Blood Urea Nitrogen 45 H Creatinine 1.32 H Est Glomerular Filtrat Rate mL/min Glucose Level 114 Calcium Level 9.3 Medications Medication Current Medications IV Flush (NS 3 ml) 3 ml PER PROTOCOL IV ; Start 05/28/18 at 19:00 Ondansetron HCl (Zofran Inj) 4 mg Q6H PRN IV NAUSEA/VOMITING; Start 05/28/18 at 19:00 Acetaminophen (Tylenol Tab) 650 mg Q6H PRN PO .PAIN 1-3 OR TEMP; Start 05/28/18 at 19:00 Acetaminophen/ Hydrocodone Bitart ([place] (5/325)) 1 tab Q6H PRN PO .MOD PAIN 4- 6; Start 05/28/18 at 19:00 Docusate Sodium (Colace) 100 mg Q12H PRN PO .CONSTIPATION Last administered on 06/07/18at 06:57; Admin Dose 100 MG; Start 05/28/18 at 19:00 Magnesium Hydroxide (Milk Of Mag) 30 ml DAILY PRN PO .CONSTIPATION Last administered on 06/06/18at 06:47; Admin Dose 30 ML; Start 05/28/18 at 19:00 Albuterol/ Ipratropium (Duoneb) 3 ml Q4H RESP THERAPY PRN HHN SHORTNESS OF BREATH; Start 05/28/18 at 19:00 Hydralazine HCl (Apresoline) 10 mg Q6H PRN IV ELEVATED BLOOD PRESSURE; Start 05/28/18 at 19:00 Nitroglycerin (Nitroglycerin (Sl Tab) 0.4 Mg) 1 tab Q5M PRN SL ANGINA; Start 05/28/18 at 19:00 Atorvastatin Calcium (Lipitor) 10 mg QHS PO Last administered on 06/06/18at 20:45; Admin Dose 10 MG; Start 05/28/18 at 21:00 Levothyroxine Sodium (Synthroid) 100 mcg BEFORE BREAKFAST PO Last administered on 06/07/18 06:57; Admin Dose 100 MCG; Start 05/29/18 at 07:00 Calcium Carbonate (Oyster Shell Calcium) 1.25 gm BID PO Last administered on 06/07/18 08:37; Admin Dose 1.25 GM; Start 05/28/18 at 21:00 Cyanocobalamin (Vitamin B12) 1,000 mcg DAILY PO Last administered on 06/07/18 08:37; Admin Dose 1,000 MCG; Start 05/29/18 at 09:00 Multivitamins/ Minerals (Theragran-M) 1 tab DAILY PO Last administered on 06/07/18 08:38; Admin Dose 1 TAB; Start 05/29/18 at 09:00 Pantoprazole (Protonix Tab) 40 mg BID@06,18 PO Last administered on 06/07/18 06:57; Admin Dose 40 MG; Start 06/02/18 at 18:00 Carvedilol (Coreg) 3.125 mg BID PO Last administered on 06/07/18 08:38; Admin Dose 3.125 MG; Start 06/04/18 at 10:00 Polyethylene Glycol (Miralax) 17 gm DAILY PO Last administered on 06/07/18 08:39; Admin Dose 17 GM; Start 06/04/18 at 11:30 SHIRA ANTOINE MD Jun 07, 2018 11:06
--- NOTE | 2018-06-07 12:37 | CONS ---
Assessment/Plan Assessment/Plan Assessment/Plan (Daily) # Thrombocytopenia- Platelet 80 today -upon review of out patient labs, patient platelets 08/2017 were at 201 -thrombocytopenia is likely secondary to consumption from the brisk GI Bleed. # Diverticular GI bleed # Anemia- Hgb 6.3 today -2 units PRBC transfusion today -- Plan possible embolization for diverticular bleed by IR # AVR # CHF -no evidence of DIC. elevated D dimer noted which is likely 2/2 underlying inflammation -LDH only mildly elevated making TTP unlikely. furthermore peripheral smear does not show evidence of schistocytes -no platelet transfusion needed at this time Patient seen in collaboration wit Dr Riddle Consultation Date/Type/Reason Admit Date/Time May 28, 2018 at 19:26 Initial Consult Date 06/04/18 Requesting Provider: SHIRA ANTOINE MD Date/Time of Note DATE: 06/07/18 TIME: 12:35 24 HR Interval Summary Free Text/Dictation Patient is off floor- taken for PICC line placement - Hgb 6.3- 2 units PRBC transfusion today - Plan for possible embolization for diverticular bleed. - dw Dr Tucker /staff Exam/Review of Systems Exam Vitals Vital Signs Date Temp Pulse Resp B/P (MAP) Pulse Ox O2 O2 Flow FiO2 Time Delivery Rate 06/07/18 97.9 60 18 125/58 97 Room Air 08:14 (80) 06/03/18 2.0 15:44 Intake and Output 06/06/18 06/06/18 06/07/18 1515:00 23:00 07:00 IntakeIntake Total 830 ml 500 ml OutputOutput Total 500 ml 450 ml BalanceBalance -500 ml 380 ml 500 ml Results Result Diagram: 06/07/18 0452 06/07/18 0452 Results 24hrs Laboratory Tests Test 06/06/18 13:45 06/07/18 04:52 Stool Occult Blood POSITIVE White Blood Count 5.9 Red Blood Count 1.99 L Hemoglobin 6.3 *L Hematocrit 20.4 L Mean Corpuscular Volume 102.5 H Mean Corpuscular Hemoglobin 31.7 Mean Corpuscular Hemoglobin Concent 30.9 L Red Cell Distribution Width 17.2 H Platelet Count 80 L Mean Platelet Volume 9.8 Immature Granulocytes % 0.500 H Neutrophils % 74.0 Lymphocytes % 11.5 L Monocytes % 11.0 Eosinophils % 2.5 Basophils % 0.5 Nucleated Red Blood Cells % 0.0 Immature Granulocytes # 0.030 Neutrophils # 4.4 Lymphocytes # 0.7 L Monocytes # 0.7 Eosinophils # 0.2 Basophils # 0.0 Nucleated Red Blood Cells # 0.0 Sodium Level 137 Potassium Level 4.5 Chloride Level 108 Carbon Dioxide Level 23 Anion Gap 6 Blood Urea Nitrogen 45 H Creatinine 1.32 H Est Glomerular Filtrat Rate mL/min Glucose Level 114 Calcium Level 9.3 Medications Medication Current Medications IV Flush (NS 3 ml) 3 ml PER PROTOCOL IV ; Start 05/28/18 at 19:00 Ondansetron HCl (Zofran Inj) 4 mg Q6H PRN IV NAUSEA/VOMITING; Start 05/28/18 at 19:00 Acetaminophen (Tylenol Tab) 650 mg Q6H PRN PO .PAIN 1-3 OR TEMP; Start 05/28/18 at 19:00 Acetaminophen/ Hydrocodone Bitart ([place] (5/325)) 1 tab Q6H PRN PO .MOD PAIN 4- 6; Start 05/28/18 at 19:00 Docusate Sodium (Colace) 100 mg Q12H PRN PO .CONSTIPATION Last administered on 06/07/18 06:57; Admin Dose 100 MG; Start 05/28/18 at 19:00 Magnesium Hydroxide (Milk Of Mag) 30 ml DAILY PRN PO .CONSTIPATION Last administered on 06/06/18 06:47; Admin Dose 30 ML; Start 05/28/18 at 19:00 Albuterol/ Ipratropium (Duoneb) 3 ml Q4H RESP THERAPY PRN HHN SHORTNESS OF BREATH; Start 05/28/18 at 19:00 Hydralazine HCl (Apresoline) 10 mg Q6H PRN IV ELEVATED BLOOD PRESSURE; Start 05/28/18 at 19:00 Nitroglycerin (Nitroglycerin (Sl Tab) 0.4 Mg) 1 tab Q5M PRN SL ANGINA; Start 05/28/18 at 19:00 Atorvastatin Calcium (Lipitor) 10 mg QHS PO Last administered on 06/06/18 20:45; Admin Dose 10 MG; Start 05/28/18 at 21:00 Levothyroxine Sodium (Synthroid) 100 mcg BEFORE BREAKFAST PO Last administered on 06/07/18 06:57; Admin Dose 100 MCG; Start 05/29/18 at 07:00 Calcium Carbonate (Oyster Shell Calcium) 1.25 gm BID PO Last administered on 06/07/18 08:37; Admin Dose 1.25 GM; Start 05/28/18 at 21:00 Cyanocobalamin (Vitamin B12) 1,000 mcg DAILY PO Last administered on 06/07/18 08:37; Admin Dose 1,000 MCG; Start 05/29/18 at 09:00 Multivitamins/ Minerals (Theragran-M) 1 tab DAILY PO Last administered on 06/07/18 08:38; Admin Dose 1 TAB; Start 05/29/18 at 09:00 Pantoprazole (Protonix Tab) 40 mg BID@18 PO Last administered on 06/07/18 06:57; Admin Dose 40 MG; Start 06/02/18 at 18:00 Carvedilol (Coreg) 3.125 mg BID PO Last administered on 06/07/18 08:38; Admin Dose 3.125 MG; Start 06/04/18 at 10:00 Polyethylene Glycol (Miralax) 17 gm DAILY PO Last administered on 06/07/18 08:39; Admin Dose 17 GM; Start 06/04/18 at 11:30 SOHAN BASILIO Jun 07, 2018 12:37
[2018-06-07] MEDS: ATORVASTATIN 10 MG TAB PO SCH (21:35)
[2018-06-08] VITALS: BP 137/65; PULSE 60; RESP 18
[2018-06-08] MEDS: PANTOPRAZOLE (EC) 40 MG TAB PO SCH ×2 (06:03→18:20)
[2018-06-08] MEDS: LEVOTHYROXINE 100 MCG TAB PO SCH (06:03)
[2018-06-08 07:43] VITALS: BP 136/66; PULSE 60; RESP 19
[2018-06-08] MEDS: CYANOCOBALAMIN 500 MCG TAB PO SCH (09:00)
[2018-06-08] MEDS: CALCIUM CARBONATE 1.25 GM TAB PO SCH ×2 (09:00→21:01)
[2018-06-08] MEDS: POLYETHYLENE GLYCOL 17 GM PACKET PO SCH (09:00)
[2018-06-08] MEDS: MULTIVITAMINS/MINERALS TAB PO SCH (09:00)
--- NOTE | 2018-06-08 09:13 | PN ---
DATE: 06/08/2018 SUBJECTIVE: The patient is status post blood transfusion. No other events noted overnight. OBJECTIVE: VITAL SIGNS: Blood pressures 136/66, respirations 19, pulse 60, temperature 98.2. HEENT: Head is normocephalic. NECK: Supple. HEART: Regular rate. LUNGS: Show diminished breath sounds at the base. ABDOMEN: Soft, nontender to palpation without rebound or guarding. EXTREMITIES: Negative for clubbing, cyanosis, no edema. DERMATOLOGIC: No rashes. MUSCULOSKELETAL: No joint effusion. NEUROLOGIC: No change in exam. MEDICATIONS: Reviewed. ASSESSMENT AND PLAN: 1. Nonoliguric acute kidney injury with previous baseline creatinine of 1.2 to 1.5 mg/dL, etiology o f acute kidney injury is secondary to hemodynamics. Renal function is stable. Continue to monitor. 2. Chronic kidney disease. Continue current treatment plan. Continue disease factor modification. 3. Mineral bone disorder. Monitor calcium and phosphorus levels. 4. Anemia with ongoing GI bleed. The patient has positive RBC scan, which showed colon as a source of active bleeding versus embolization versus possible colectomy. 5. Atrial fibrillation. Continue medical management. 6. Congestive heart failure. The patient is currently compensated. 7. Hypothyroidism. Continue Synthroid. 8. History of dementia. 9. Dyslipidemia. Continue statin therapy. Dictated By: CATRACHO PALENCIA DO NR/NTS Conf#: [id number] DID#: [id number] CC: SHIRA ANTOINE MD; LES SAUNDERS; CATRACHO PALENCIA DO;*EndCC*
--- NOTE | 2018-06-08 12:58 | PN ---
Date/Time of Note Date/Time of Note DATE: 06/08/18 TIME: 12:54 Assessment/Plan VTE Prophylaxis Risk score (from Ns)>0 risk: 4 SCD applied (from Ns): Yes Pharmacological prophylaxis: NA/contraindicated Pharm contraindication: bleeding Lines/Catheters IV C[facility]ter Type (from [facility]): PICC Line Central line still needed: Yes Urinary Cath still in place: No Assessment/Plan Hospital Course S: Patient still with some occasional dark stools, received PRBC transfusion again yesterday. O: VS - see below PHYSICAL EXAMINATION: GENERAL: lying in bed, NAD HEENT: Pupils equal, round, reactive to light. Extraocular muscles intact. NECK: Supple. No thyromegaly. LUNGS: Clear to auscultation bilaterally. CARDIOVASCULAR: S1 and S2 heard. No rubs or gallops. ABDOMEN: Soft, nontender, nondistended. Normal bowel sounds. No rebound or guarding. MUSCULOSKELETAL: No lower extremity edema bilaterally. NEUROLOGIC: No focal deficits. ASSESSMENT AND PLAN: 82-year-old female coming in with history of paroxysmal atrial fibrillation on Eliquis, transcatheter aortic valve replacement, congestive heart failure, recent lower gastrointestinal bleeding 2 weeks ago, hospitalized for that, status post colonoscopy with internal hemorrhoids and diverticulosis, presents with continued lower gastrointestinal bleeding and anemia, hemoglobin 5.9. 1. Anemia, lower gastrointestinal bleeding-likely secondary to diverticular source. On presentation the hemoglobin 5.9. Has had 2 separate occurrences where she needed PRBC transfusions this admission, most recently yesterday. - Continue to hold all anticoagulants including Eliquis (since admission, 05/28) - Per GI team recommendations:given positive nuclear tagged RBC scan results (likely right colon diverticular source), they feel no therapeutic intervention other than colectomy will decrease future risk of lower GI bleeding - Continue Protonix twice daily for now - Hospitalist discussed with son and patient 06/06. Given option between colectomy, waiting longer, and home hospice. Patient says "I'm 82, how much longer do I really need? ....But if there's something to be done I don't want to go too early". Son is considering surgery evaluation but will wait until more family comes. -Plan for IR procedure later today for possible embolization for diverticular bleed. 2. Thrombocytopenia- Platelets had been progressively dropping since admission. Now coming back up. - Dr. Riddle consulted, proceed with DIC workup. 3. History of congestive heart failure. BNP 10,000 this admission. - Continue current cardiac medications cautiously - although we have been holding Entresto since admission secondary to renal insufficiency 4. High cholesterol. -Continue statin 5. History of transcatheter aortic valve replacement (TAVR). - Carefully continue current cardiac medications per cardiology recommendations 6. History of paroxysmal atrial fibrillation. Presently rate controlled - again, continue to monitor heart rate on telemetry. - Again, holding off on anticoagulation given her gastrointestinal bleeding presently right now. 7. SHANEKA -slowly improving with intermittent doses of IV fluids cautiously given given her CHF history -Monitor for now, still holding Entresto as well 8. Gastrointestinal prophylaxis. Again, continue on PPI IV b.i.d. 9. Deep venous thrombosis prophylaxis. SCDs -avoid anticoagulants given GI bleeding Dispo: Hgb continues to drop off antiplatelets, anticoag. Children want to get evaluation for IR embolization -which is planned for later today. If not possible, they will consider surgery although prior hospitalist warned to patient and family she is very high risk and possible a surgeon would not choose to even operate. They may choose to take her home and return to the ED as needed for blood transfusions. They do not want hospice currently. Result Diagram: 06/08/18 1008 06/07/18 0452 Results 24hrs Laboratory Tests Test 06/08/18 07:13 06/08/18 10:08 Lab Scanned Report BLOOD TRANSFUSION White Blood Count 6.7 Red Blood Count 2.93 #L Hemoglobin 9.3 #L Hematocrit 27.8 #L Mean Corpuscular Volume 94.9 Mean Corpuscular Hemoglobin 31.7 Mean Corpuscular Hemoglobin Concent 33.5 Red Cell Distribution Width 16.6 H Platelet Count 85 L Mean Platelet Volume 9.7 Immature Granulocytes % 0.500 H Neutrophils % 75.6 Lymphocytes % 10.8 L Monocytes % 10.7 Eosinophils % 1.8 Basophils % 0.6 Nucleated Red Blood Cells % 0.0 Immature Granulocytes # 0.030 Neutrophils # 5.0 Lymphocytes # 0.7 L Monocytes # 0.7 Eosinophils # 0.1 Basophils # 0.0 Nucleated Red Blood Cells # 0.0 Exam/Review of Systems Exam Vitals Vital Signs Date Temp Pulse Resp B/P (MAP) Pulse Ox O2 O2 Flow FiO2 Time Delivery Rate 06/08/18 98.2 60 19 136/66 96 07:43 (89) 06/08/18 Room Air 00:00 Intake and Output 06/07/18 06/07/18 06/08/18 1515:00 23:00 07:00 IntakeIntake Total 590 ml 200 ml BalanceBalance 590 ml 200 ml Results Results 24hrs Laboratory Tests Test 06/08/18 07:13 06/08/18 10:08 Lab Scanned Report BLOOD TRANSFUSION White Blood Count 6.7 Red Blood Count 2.93 #L Hemoglobin 9.3 #L Hematocrit 27.8 #L Mean Corpuscular Volume 94.9 Mean Corpuscular Hemoglobin 31.7 Mean Corpuscular Hemoglobin Concent 33.5 Red Cell Distribution Width 16.6 H Platelet Count 85 L Mean Platelet Volume 9.7 Immature Granulocytes % 0.500 H Neutrophils % 75.6 Lymphocytes % 10.8 L Monocytes % 10.7 Eosinophils % 1.8 Basophils % 0.6 Nucleated Red Blood Cells % 0.0 Immature Granulocytes # 0.030 Neutrophils # 5.0 Lymphocytes # 0.7 L Monocytes # 0.7 Eosinophils # 0.1 Basophils # 0.0 Nucleated Red Blood Cells # 0.0 Medications Medication Current Medications IV Flush (NS 3 ml) 3 ml PER PROTOCOL IV ; Start 05/28/18 at 19:00 Ondansetron HCl (Zofran Inj) 4 mg Q6H PRN IV NAUSEA/VOMITING; Start 05/28/18 at 19:00 Acetaminophen (Tylenol Tab) 650 mg Q6H PRN PO .PAIN 1-3 OR TEMP; Start 05/28/18 at 19:00 Acetaminophen/ Hydrocodone Bitart ([place] (5/325)) 1 tab Q6H PRN PO .MOD PAIN 4- 6; Start 05/28/18 at 19:00 Docusate Sodium (Colace) 100 mg Q12H PRN PO .CONSTIPATION Last administered on 06/07/18at 06:57; Admin Dose 100 MG; Start 05/28/18 at 19:00 Magnesium Hydroxide (Milk Of Mag) 30 ml DAILY PRN PO .CONSTIPATION Last administered on 06/06/18at 06:47; Admin Dose 30 ML; Start 05/28/18 at 19:00 Albuterol/ Ipratropium (Duoneb) 3 ml Q4H RESP THERAPY PRN HHN SHORTNESS OF BREATH; Start 05/28/18 at 19:00 Hydralazine HCl (Apresoline) 10 mg Q6H PRN IV ELEVATED BLOOD PRESSURE; Start 05/28/18 at 19:00 Nitroglycerin (Nitroglycerin (Sl Tab) 0.4 Mg) 1 tab Q5M PRN SL ANGINA; Start 05/28/18 at 19:00 Atorvastatin Calcium (Lipitor) 10 mg QHS PO Last administered on 06/07/18 21:35; Admin Dose 10 MG; Start 05/28/18 at 21:00 Levothyroxine Sodium (Synthroid) 100 mcg BEFORE BREAKFAST PO Last administered on 06/08/18 06:03; Admin Dose 100 MCG; Start 05/29/18 at 07:00 Calcium Carbonate (Oyster Shell Calcium) 1.25 gm BID PO Last administered on 06/07/18 21:35; Admin Dose 1.25 GM; Start 05/28/18 at 21:00 Cyanocobalamin (Vitamin B12) 1,000 mcg DAILY PO Last administered on 06/07/18 08:37; Admin Dose 1,000 MCG; Start 05/29/18 at 09:00 Multivitamins/ Minerals (Theragran-M) 1 tab DAILY PO Last administered on 06/07/18 08:38; Admin Dose 1 TAB; Start 05/29/18 at 09:00 Pantoprazole (Protonix Tab) 40 mg BID@06,18 PO Last administered on 06/08/18 06:03; Admin Dose 40 MG; Start 06/02/18 at 18:00 Carvedilol (Coreg) 3.125 mg BID PO Last administered on 06/07/18 21:36; Admin Dose 3.125 MG; Start 06/04/18 at 10:00 Polyethylene Glycol (Miralax) 17 gm DAILY PO Last administered on 06/07/18 08:39; Admin Dose 17 GM; Start 06/04/18 at 11:30 LES SAUNDERS 25, 2019 12:58
--- NOTE | 2018-06-08 15:12 | CONS ---
Consult Date/Type/Reason Admit Date/Time May 28, 2018 at 19:26 Initial Consult Date 05/29/18 Type of Consultation: cv Requesting Provider: SHIRA ANTOINE MD Date/Time of Note DATE: 06/08/18 TIME: 15:08 Subjective Interventional cardiology follow-up progress note Subjective: Discussed with staff and telemetry was reviewed. Patient is off tele now Discussed with the patient's daughter and son at bedside Patient is unaware of any more bleeding but stool appears to be very dark and she continues to have low H&H and has required to get blood transfusion over the weekend She denies any chest pain or pressure to me has any palpitation to me. Objective: General: Elderly female no acute distress HEENT: NC/AT. pupils are equal. round. NECK: . no stridor. CV: RRR. systolic murmur; no gallop or rubs. PULM: no wheezing or rhonchi. GI: SOFT, NT, ND, no rebound or guarding Extremity: trace B/L LE edema. no clubbing. neuro: awake and alert, Psych: calm and pleasant rectal: deferred Abdominal/pelvic CT done May 30, 2018 shows: No evidence of urolithiasis, obstructive uropathy or diverticulitis. Diverticulosis. Nonvisualization appendix. No bowel mass or obstruction is seen. Cholecystectomy with presumed physiologic intra and extrahepatic bile duct dilatation. Correlation with serum bilirubin levels could be performed if clinically indicated. Aortic valve replacement. Cardiomegaly. Small pericardial effusion. Vascular calcifications. Senescent degenerative changes spine. Tiny right pleural effusion. Objective Vitals Vital Signs Date Temp Pulse Resp B/P (MAP) Pulse Ox O2 O2 Flow FiO2 Time Delivery Rate 06/08/18 98.2 60 19 136/66 96 07:43 (89) 06/08/18 Room Air 00:00 Intake and Output 06/07/18 06/07/18 06/08/18 1515:00 23:00 07:00 IntakeIntake Total 590 ml 200 ml BalanceBalance 590 ml 200 ml Results/Medications Result Diagram: 06/08/18 1008 06/07/18 0452 Results 24 hrs Laboratory Tests Test 06/08/18 07:13 06/08/18 10:08 Lab Scanned Report BLOOD TRANSFUSION White Blood Count 6.7 Red Blood Count 2.93 #L Hemoglobin 9.3 #L Hematocrit 27.8 #L Mean Corpuscular Volume 94.9 Mean Corpuscular Hemoglobin 31.7 Mean Corpuscular Hemoglobin Concent 33.5 Red Cell Distribution Width 16.6 H Platelet Count 85 L Mean Platelet Volume 9.7 Immature Granulocytes % 0.500 H Neutrophils % 75.6 Lymphocytes % 10.8 L Monocytes % 10.7 Eosinophils % 1.8 Basophils % 0.6 Nucleated Red Blood Cells % 0.0 Immature Granulocytes # 0.030 Neutrophils # 5.0 Lymphocytes # 0.7 L Monocytes # 0.7 Eosinophils # 0.1 Basophils # 0.0 Nucleated Red Blood Cells # 0.0 Home Meds Reported Medications Cyanocobalamin (Vitamin B-12) (Vitamin B-12) 1,000 Mcg Tab.subl, 1000 MCG SL DAILY 05/28/18 Multivitamin/Iron/Folic Acid (Centrum Adults Tablet) 1 Each Tablet, 1 EACH PO DAILY, TAB 05/28/18 Calcium Carbonate* (Calcium Carbonate*) 600 MG Ca Tab, 600 MG PO BID, TAB 05/28/18 Omeprazole* (Omeprazole*) 40 Mg Capsule.dr, 40 MG PO DAILY, #30 CAP 05/28/18 Atorvastatin Calcium (Atorvastatin Calcium) 10 Mg Tablet, 10 MG PO QHS, #30 TAB 05/28/18 Apixaban* (Eliquis*) 2.5 Mg Tablet, 2.5 MG PO DAILY, TAB 05/28/18 Sacubitril/Valsartan (Entresto 49 mg-51 mg Tablet) 1 Each Tablet, 1 EACH PO DAILY, TAB 05/28/18 Carvedilol* (Carvedilol*) 6.25 Mg Tablet, 6.25 MG PO DAILY, #60 TAB 05/28/18 Furosemide* (Furosemide*) 40 Mg Tablet, 40 MG PO DAILY, TAB 05/28/18 Spironolactone* (Aldactone*) 25 Mg Tablet, 25 MG PO DAILY, #30 TAB 05/28/18 Levothyroxine Sodium* (Levothyroxine Sodium*) 100 Mcg Tablet, 100 MCG PO BEFORE BREAKFAST, #30 TAB 05/28/18 Medications Current Medications IV Flush (NS 3 ml) 3 ml PER PROTOCOL IV ; Start 05/28/18 at 19:00 Ondansetron HCl (Zofran Inj) 4 mg Q6H PRN IV NAUSEA/VOMITING; Start 05/28/18 at 19:00 Acetaminophen (Tylenol Tab) 650 mg Q6H PRN PO .PAIN 1-3 OR TEMP; Start 05/28/18 at 19:00 Acetaminophen/ Hydrocodone Bitart ([place] (5/325)) 1 tab Q6H PRN PO .MOD PAIN 4- 6; Start 05/28/18 at 19:00 Docusate Sodium (Colace) 100 mg Q12H PRN PO .CONSTIPATION Last administered on 06/07/18 06:57; Admin Dose 100 MG; Start 05/28/18 at 19:00 Magnesium Hydroxide (Milk Of Mag) 30 ml DAILY PRN PO .CONSTIPATION Last administered on 06/06/18 06:47; Admin Dose 30 ML; Start 05/28/18 at 19:00 Albuterol/ Ipratropium (Duoneb) 3 ml Q4H RESP THERAPY PRN HHN SHORTNESS OF BREATH; Start 05/28/18 at 19:00 Hydralazine HCl (Apresoline) 10 mg Q6H PRN IV ELEVATED BLOOD PRESSURE; Start 05/28/18 at 19:00 Nitroglycerin (Nitroglycerin (Sl Tab) 0.4 Mg) 1 tab Q5M PRN SL ANGINA; Start 05/28/18 at 19:00 Atorvastatin Calcium (Lipitor) 10 mg QHS PO Last administered on 06/07/18 21:35; Admin Dose 10 MG; Start 05/28/18 at 21:00 Levothyroxine Sodium (Synthroid) 100 mcg BEFORE BREAKFAST PO Last administered on 06/08/18 06:03; Admin Dose 100 MCG; Start 05/29/18 at 07:00 Calcium Carbonate (Oyster Shell Calcium) 1.25 gm BID PO Last administered on 06/07/18 21:35; Admin Dose 1.25 GM; Start 05/28/18 at 21:00 Cyanocobalamin (Vitamin B12) 1,000 mcg DAILY PO Last administered on 06/07/18 08:37; Admin Dose 1,000 MCG; Start 05/29/18 at 09:00 Multivitamins/ Minerals (Theragran-M) 1 tab DAILY PO Last administered on 06/07/18 08:38; Admin Dose 1 TAB; Start 05/29/18 at 09:00 Pantoprazole (Protonix Tab) 40 mg BID@06,18 PO Last administered on 06/08/18at 06:03; Admin Dose 40 MG; Start 06/02/18 at 18:00 Carvedilol (Coreg) 3.125 mg BID PO Last administered on 06/07/18at 21:36; Admin Dose 3.125 MG; Start 06/04/18 at 10:00 Polyethylene Glycol (Miralax) 17 gm DAILY PO Last administered on 06/07/18at 08 :39; Admin Dose 17 GM; Start 06/04/18 at 11:30 Assessment/Plan Hospital Course (Demo Recall) 1. Recurrent lower GI bleed on anticoagulation: Currently off Eliquis 2. 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 Severe cardiomyopathy 4. Sick sinus syndrome with permanent pacemaker 5. History of aortic stenosis status post transcutaneous aortic valve replacement 6 permissive hypertension 7. Chronic kidney disease 8. Anemia secondary to GI bleeding 9. anemia: s/p transfusions Recommendations: Will cont coreg at lower dose of 3.125 bid as tolerated Transfusion as needed follow-up with GI recommendations. ? embolization will resume entresto once BP remains stable. Thank you for his referral. We will follow-up with you KAYLAH BAXTER MD [facility] KAYLAH BAXTER MD Jun 08, 2018 15:12
[2018-06-08 20:05] VITALS: BP 134/61; PULSE 60; RESP 18
[2018-06-08] MEDS: ATORVASTATIN 10 MG TAB PO SCH (21:01)
[2018-06-09 02:40] VITALS: BP 132/60; PULSE 60; RESP 18
[2018-06-09] MEDS: PANTOPRAZOLE (EC) 40 MG TAB PO SCH ×2 (06:00→09:34)
[2018-06-09] MEDS: LEVOTHYROXINE 100 MCG TAB PO SCH (06:37)
[2018-06-09 07:36] VITALS: BP 144/67; PULSE 62; RESP 19
[2018-06-09] MEDS: MULTIVITAMINS/MINERALS TAB PO SCH (09:33)
[2018-06-09] MEDS: CALCIUM CARBONATE 1.25 GM TAB PO SCH ×2 (09:34→20:34)
[2018-06-09] MEDS: POLYETHYLENE GLYCOL 17 GM PACKET PO SCH (09:35)
--- NOTE | 2018-06-09 09:46 | PN ---
DATE: 06/09/2018 SUBJECTIVE: The patient is pending IR embolization today. No other events noted. OBJECTIVE: VITAL SIGNS: Blood pressure is 144/67, pulse 62, respirations 19, temperature 98.2. HEENT: Head is normocephalic. NECK: Supple. HEART: Regular rate. LUNGS: Show diminished breath sounds at the base. ABDOMEN: Soft, nontender to palpation without rebound or guarding. EXTREMITIES: Negative for clubbing, cyanosis, no edema. DERMATOLOGIC: No rashes. MUSCULOSKELETAL: No joint effusion. NEUROLOGIC: No change in exam. MEDICATIONS: Reviewed. LABORATORY DATA: From 06/09/2018 was reviewed. The patient's BUN 32, creatinine 1.11. CBC was revi ewed. ASSESSMENT AND PLAN: 1. Nonoliguric acute kidney injury with previous baseline creatinine of 1.2 to 1.5 mg/dL. Etiology of acute kidney injury is secondary to hemodynamics. Renal function has stabilized, improving. Cont inue current treatment plan, supportive care, renally dose all medicines. 2. Chronic kidney disease. The patient's renal function appears to have stabilized. Continue to mo nitor. 3. Mineral bone disorder, monitor calcium and phosphorus levels. 4. Anemia with active GI bleeding. The patient is pending IR embolization, continue to monitor hemo globin and hematocrit levels. 5. Atrial fibrillation. Continue medical management. 6. Congestive heart failure. Continue current treatment plan. 7. Hypothyroidism. Continue Synthroid. 8. History of dementia. 9. Dyslipidemia. Continue statin therapy. Dictated By: CATRACHO PALENCIA DO NR/NTS Conf#: [id number] DID#: [id number] CC: LES SAUNDERS; CATRACHO PALENCIA DO;*EndCC*
[2018-06-09] MEDS: CYANOCOBALAMIN 500 MCG TAB PO SCH (10:20)
--- NOTE | 2018-06-09 10:29 | CONS ---
Consult Date/Type/Reason Admit Date/Time May 28, 2018 at 19:26 Initial Consult Date 05/29/18 Type of Consultation: cv Requesting Provider: SHIRA ANTOINE MD Date/Time of Note DATE: 06/09/18 TIME: 10:27 Subjective Interventional cardiology follow-up progress note Subjective: Discussed with staff and telemetry was reviewed. Patient is off tele now Discussed with the patient's daughter and son at bedside She still has dark stool She denies any chest pain or pressure to me has any palpitation to me. Objective: General: Elderly female no acute distress HEENT: NC/AT. pupils are equal. round. NECK: . no stridor. CV: RRR. systolic murmur; no gallop or rubs. PULM: no wheezing or rhonchi. GI: SOFT, NT, ND, no rebound or guarding Extremity: trace B/L LE edema. no clubbing. neuro: awake and alert, Psych: calm and pleasant rectal: deferred Abdominal/pelvic CT done May 30, 2018 shows: No evidence of urolithiasis, obstructive uropathy or diverticulitis. Diverticulosis. Nonvisualization appendix. No bowel mass or obstruction is seen. Cholecystectomy with presumed physiologic intra and extrahepatic bile duct dilatation. Correlation with serum bilirubin levels could be performed if clinically indicated. Aortic valve replacement. Cardiomegaly. Small pericardial effusion. Vascular calcifications. Senescent degenerative changes spine. Tiny right pleural effusion. Objective Vitals Vital Signs Date Temp Pulse Resp B/P (MAP) Pulse Ox O2 O2 Flow FiO2 Time Delivery Rate 06/09/18 98.2 62 19 144/67 96 07:36 (92) 06/08/18 Room Air 00:00 Intake and Output 06/08/18 06/08/18 06/09/18 1515:00 23:00 07:00 IntakeIntake Total 482 ml OutputOutput Total 2 ml BalanceBalance 480 ml Results/Medications Result Diagram: 06/09/18 04406/09/18 044 Results 24 hrs Laboratory Tests Test 06/09/18 04:41 White Blood Count 6.2 Red Blood Count 2.63 L Hemoglobin 8.5 L Hematocrit 25.5 L Mean Corpuscular Volume 97.0 Mean Corpuscular Hemoglobin 32.3 Mean Corpuscular Hemoglobin Concent 33.3 Red Cell Distribution Width 16.6 H Platelet Count 93 L Mean Platelet Volume 9.9 Immature Granulocytes % 0.500 H Neutrophils % 72.9 Lymphocytes % 10.5 L Monocytes % 12.8 H Eosinophils % 2.3 Basophils % 1.0 Nucleated Red Blood Cells % 0.0 Immature Granulocytes # 0.030 Neutrophils # 4.5 Lymphocytes # 0.7 L Monocytes # 0.8 Eosinophils # 0.1 Basophils # 0.1 Nucleated Red Blood Cells # 0.0 Sodium Level 137 Potassium Level 4.0 Chloride Level 108 Carbon Dioxide Level 25 Anion Gap 4 L Blood Urea Nitrogen 32 #H Creatinine 1.11 H Est Glomerular Filtrat Rate mL/min Glucose Level 81 Calcium Level 8.6 Home Meds Reported Medications Cyanocobalamin (Vitamin B-12) (Vitamin B-12) 1,000 Mcg Tab.subl, 1000 MCG SL DAILY 05/28/18 Multivitamin/Iron/Folic Acid (Centrum Adults Tablet) 1 Each Tablet, 1 EACH PO DAILY, TAB 05/28/18 Calcium Carbonate* (Calcium Carbonate*) 600 MG Ca Tab, 600 MG PO BID, TAB 05/28/18 Omeprazole* (Omeprazole*) 40 Mg Capsule.dr, 40 MG PO DAILY, #30 CAP 05/28/18 Atorvastatin Calcium (Atorvastatin Calcium) 10 Mg Tablet, 10 MG PO QHS, #30 TAB 05/28/18 Apixaban* (Eliquis*) 2.5 Mg Tablet, 2.5 MG PO DAILY, TAB 05/28/18 Sacubitril/Valsartan (Entresto 49 mg-51 mg Tablet) 1 Each Tablet, 1 EACH PO DAILY, TAB 05/28/18 Carvedilol* (Carvedilol*) 6.25 Mg Tablet, 6.25 MG PO DAILY, #60 TAB 05/28/18 Furosemide* (Furosemide*) 40 Mg Tablet, 40 MG PO DAILY, TAB 05/28/18 Spironolactone* (Aldactone*) 25 Mg Tablet, 25 MG PO DAILY, #30 TAB 05/28/18 Levothyroxine Sodium* (Levothyroxine Sodium*) 100 Mcg Tablet, 100 MCG PO BEFORE BREAKFAST, #30 TAB 05/28/18 Medications Current Medications IV Flush (NS 3 ml) 3 ml PER PROTOCOL IV ; Start 05/28/18 at 19:00 Ondansetron HCl (Zofran Inj) 4 mg Q6H PRN IV NAUSEA/VOMITING; Start 05/28/18 at 19:00 Acetaminophen (Tylenol Tab) 650 mg Q6H PRN PO .PAIN 1-3 OR TEMP; Start 05/28/18 at 19:00 Acetaminophen/ Hydrocodone Bitart ([place] (5/325)) 1 tab Q6H PRN PO .MOD PAIN 4- 6; Start 05/28/18 at 19:00 Docusate Sodium (Colace) 100 mg Q12H PRN PO .CONSTIPATION Last administered on 06/07/18 06:57; Admin Dose 100 MG; Start 05/28/18 at 19:00 Magnesium Hydroxide (Milk Of Mag) 30 ml DAILY PRN PO .CONSTIPATION Last administered on 06/06/18 06:47; Admin Dose 30 ML; Start 05/28/18 at 19:00 Albuterol/ Ipratropium (Duoneb) 3 ml Q4H RESP THERAPY PRN HHN SHORTNESS OF BREATH; Start 05/28/18 at 19:00 Hydralazine HCl (Apresoline) 10 mg Q6H PRN IV ELEVATED BLOOD PRESSURE; Start 05/28/18 at 19:00 Nitroglycerin (Nitroglycerin (Sl Tab) 0.4 Mg) 1 tab Q5M PRN SL ANGINA; Start 05/28/18 at 19:00 Atorvastatin Calcium (Lipitor) 10 mg QHS PO Last administered on 06/08/18 21:01; Admin Dose 10 MG; Start 05/28/18 at 21:00 Levothyroxine Sodium (Synthroid) 100 mcg BEFORE BREAKFAST PO Last administered on 06/08/18 06:03; Admin Dose 100 MCG; Start 05/29/18 at 07:00 Calcium Carbonate (Oyster Shell Calcium) 1.25 gm BID PO Last administered on 06/09/18 09:34; Admin Dose 1.25 GM; Start 05/28/18 at 21:00 Cyanocobalamin (Vitamin B12) 1,000 mcg DAILY PO Last administered on 06/09/18 10:20; Admin Dose 1,000 MCG; Start 05/29/18 at 09:00 Multivitamins/ Minerals (Theragran-M) 1 tab DAILY PO Last administered on 06/09/18 09:33; Admin Dose 1 TAB; Start 05/29/18 at 09:00 Pantoprazole (Protonix Tab) 40 mg BID@06,18 PO Last administered on 06/09/18at 09:34; Admin Dose 40 MG; Start 06/02/18 at 18:00 Carvedilol (Coreg) 3.125 mg BID PO Last administered on 06/09/18at 09:33; Admin Dose 3.125 MG; Start 06/04/18 at 10:00 Polyethylene Glycol (Miralax) 17 gm DAILY PO Last administered on 06/09/18at 09:35; Admin Dose 17 GM; Start 06/04/18 at 11:30 Assessment/Plan Hospital Course (Demo Recall) 1. Recurrent lower GI bleed on anticoagulation: Currently off Eliquis 2. 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 Severe cardiomyopathy 4. Sick sinus syndrome with permanent pacemaker 5. History of aortic stenosis status post transcutaneous aortic valve replacement 6 permissive hypertension 7. Chronic kidney disease 8. Anemia secondary to GI bleeding 9. anemia: s/p transfusions Recommendations: Will cont coreg and inc as tolerated Transfusion as needed follow-up with GI recommendations. ? embolization will resume entresto once BP remains stable. We will hold off for now since the patient is going to be getting angiogram most likely Thank you for his referral. We will follow-up with you KAYLAH BAXTER MD [facility] KAYLAH BAXTER MD Jun 09, 2018 10:29
[2018-06-09 15:00] VITALS: BP 131/62; PULSE 60; RESP 18
--- NOTE | 2018-06-09 15:11 | PN ---
Date/Time of Note Date/Time of Note DATE: 06/09/18 TIME: 15:06 Assessment/Plan VTE Prophylaxis Risk score (from Nsg)>0 risk: 7 SCD applied (from Ns): Yes Pharmacological prophylaxis: other (scds) Lines/Catheters IV Catheter Type (from Nrsg): PICC Line Central line still needed: Yes (meds) Urinary Cath still in place: No Assessment/Plan Hospital Course Assessment: GI bleeding/hematochezia/melena. Likely right colon diverticular source EGD 05/29/2018 distal esophagitis/gastritis no active bleeding Colonoscopy 05/11/2018 sun-diverticulosis with evidence of recent bleeding NM bleed scan- Source likely right colon Anemia. Anticoagulation Dementia A-fib - CKD CHF Thrombocytopenia- trending down Plan: NM bleeding scan to assess area of bleed- if positive will plan to repeat colonoscopy Avoid anticoagulation as risk of rebleeding is very high PPI BID Patient seen in collaboration with Dr. Hendrickson/Barber Subjective: Course reviewed with nursing staff Patient interviewed and examined All labs, imaging and other results reviewed Family at bedside.Pt with intermittent rectal bleeding and correlating drop in Hgb Hgb trending down- will continue to monitor. Discussed plan with patient and f radha all verbalized understanding PHYSICAL EXAMINATION: GENERAL: Well developed, poorly nourished, alert & oriented x 3, in no acute distress SKIN: No lesions EYES: Pupils equal reactive to light and accommodation, full extraocular movements, sclera clear, non-icteric, no discharge. EARS/NOSE AND THROAT: Ears normal, nose normal, oropharynx normal, oral membranes well hydrated without lesions. NECK: Supple, no masses, thyroid normal CHEST: Inspection within normal limits. CARDIOVASCULAR: Heart: Regular rate and rhythm RESPIRATORY: Lungs clear to auscultation GASTROINTESTINAL AND LIVER: Abdomen: Soft, non tenderness, non-distended, no hernias, no masses, no organomegaly, no ascites, no guarding, no rebound tenderness, normoactive bowel sounds. Rectal: Deferred. GENITOURINARY: Female genitalia within normal limits. EXTREMITIES: No cyanosis, clubbing or edema. Result Diagram: 06/09/1844006/09/18 0441 Results 24hrs Laboratory Tests Test 06/09/18 04:41 White Blood Count 6.2 Red Blood Count 2.63 L Hemoglobin 8.5 L Hematocrit 25.5 L Mean Corpuscular Volume 97.0 Mean Corpuscular Hemoglobin 32.3 Mean Corpuscular Hemoglobin Concent 33.3 Red Cell Distribution Width 16.6 H Platelet Count 93 L Mean Platelet Volume 9.9 Immature Granulocytes % 0.500 H Neutrophils % 72.9 Lymphocytes % 10.5 L Monocytes % 12.8 H Eosinophils % 2.3 Basophils % 1.0 Nucleated Red Blood Cells % 0.0 Immature Granulocytes # 0.030 Neutrophils # 4.5 Lymphocytes # 0.7 L Monocytes # 0.8 Eosinophils # 0.1 Basophils # 0.1 Nucleated Red Blood Cells # 0.0 Sodium Level 137 Potassium Level 4.0 Chloride Level 108 Carbon Dioxide Level 25 Anion Gap 4 L Blood Urea Nitrogen 32 #H Creatinine 1.11 H Est Glomerular Filtrat Rate mL/min Glucose Level 81 Calcium Level 8.6 Exam/Review of Systems Exam Vitals Vital Signs Date Temp Pulse Resp B/P (MAP) Pulse Ox O2 O2 Flow FiO2 Time Delivery Rate 06/09/18 98.2 62 19 144/67 96 07:36 (92) 06/08/18 Room Air 00:00 Intake and Output 06/08/18 06/08/18 06/09/18 1515:00 23:00 07:00 IntakeIntake Total 482 ml OutputOutput Total 2 ml BalanceBalance 480 ml Results Results 24hrs Laboratory Tests Test 06/09/18 04:41 White Blood Count 6.2 Red Blood Count 2.63 L Hemoglobin 8.5 L Hematocrit 25.5 L Mean Corpuscular Volume 97.0 Mean Corpuscular Hemoglobin 32.3 Mean Corpuscular Hemoglobin Concent 33.3 Red Cell Distribution Width 16.6 H Platelet Count 93 L Mean Platelet Volume 9.9 Immature Granulocytes % 0.500 H Neutrophils % 72.9 Lymphocytes % 10.5 L Monocytes % 12.8 H Eosinophils % 2.3 Basophils % 1.0 Nucleated Red Blood Cells % 0.0 Immature Granulocytes # 0.030 Neutrophils # 4.5 Lymphocytes # 0.7 L Monocytes # 0.8 Eosinophils # 0.1 Basophils # 0.1 Nucleated Red Blood Cells # 0.0 Sodium Level 137 Potassium Level 4.0 Chloride Level 108 Carbon Dioxide Level 25 Anion Gap 4 L Blood Urea Nitrogen 32 #H Creatinine 1.11 H Est Glomerular Filtrat Rate mL/min Glucose Level 81 Calcium Level 8.6 Medications Medication Current Medications IV Flush (NS 3 ml) 3 ml PER PROTOCOL IV ; Start 05/28/18 at 19:00 Ondansetron HCl (Zofran Inj) 4 mg Q6H PRN IV NAUSEA/VOMITING; Start 05/28/18 at 19:00 Acetaminophen (Tylenol Tab) 650 mg Q6H PRN PO .PAIN 1-3 OR TEMP; Start 05/28/18 at 19:00 Acetaminophen/ Hydrocodone Bitart ([place] (5/325)) 1 tab Q6H PRN PO .MOD PAIN 4- 6; Start 05/28/18 at 19:00 Docusate Sodium (Colace) 100 mg Q12H PRN PO .CONSTIPATION Last administered on 06/07/18 06:57; Admin Dose 100 MG; Start 05/28/18 at 19:00 Magnesium Hydroxide (Milk Of Mag) 30 ml DAILY PRN PO .CONSTIPATION Last administered on 06/06/18 06:47; Admin Dose 30 ML; Start 05/28/18 at 19:00 Albuterol/ Ipratropium (Duoneb) 3 ml Q4H RESP THERAPY PRN HHN SHORTNESS OF LISA TH; Start 05/28/18 at 19:00 Hydralazine HCl (Apresoline) 10 mg Q6H PRN IV ELEVATED BLOOD PRESSURE; Start 05/28/18 at 19:00 Nitroglycerin (Nitroglycerin (Sl Tab) 0.4 Mg) 1 tab Q5M PRN SL ANGINA; Start 05/28/18 at 19:00 Atorvastatin Calcium (Lipitor) 10 mg QHS PO Last administered on 06/08/18at 21:0 1; Admin Dose 10 MG; Start 05/28/18 at 21:00 Levothyroxine Sodium (Synthroid) 100 mcg BEFORE BREAKFAST PO Last administered on 06/08/18 06:03; Admin Dose 100 MCG; Start 05/29/18 at 07:00 Calcium Carbonate (Oyster Shell Calcium) 1.25 gm BID PO Last administered on 06/09/18 09:34; Admin Dose 1.25 GM; Start 05/28/18 at 21:00 Cyanocobalamin (Vitamin B12) 1,000 mcg DAILY PO Last administered on 06/09/18 10:20; Admin Dose 1,000 MCG; Start 05/29/18 at 09:00 Multivitamins/ Minerals (Theragran-M) 1 tab DAILY PO Last administered on 06/09/18at 09:33; Admin Dose 1 TAB; Start 05/29/18 at 09:00 Pantoprazole (Protonix Tab) 40 mg BID@06,18 PO Last administered on 06/09/18 09:34; Admin Dose 40 MG; Start 06/02/18 at 18:00 Polyethylene Glycol (Miralax) 17 gm DAILY PO Last administered on 06/09/18at 09:35; Admin Dose 17 GM; Start 06/04/18 at 11:30 Carvedilol (Coreg) 6.25 mg BID PO ; Start 06/09/18 at 21:00 JERROD MORGAN Jun 09, 2018 15:10
--- NOTE | 2018-06-09 15:52 | PN ---
Date/Time of Note Date/Time of Note DATE: 06/09/18 TIME: 15:44 Assessment/Plan VTE Prophylaxis Risk score (from Ns)>0 risk: 7 SCD applied (from Ns): Yes Pharmacological prophylaxis: NA/contraindicated Pharm contraindication: bleeding Lines/Catheters IV Catheter Type (from Nrsg): PICC Line Central line still needed: Yes Urinary Cath still in place: No Assessment/Plan Hospital Course S: Patient still with some occasional dark stools, IR procedure was not performed yesterday secondary to this slightly suboptimal kidney function. Seen by renal, cardiology, and GI teams today. O: VS - see below PHYSICAL EXAMINATION: GENERAL: lying in bed, NAD HEENT: Pupils equal, round, reactive to light. Extraocular muscles intact. NECK: Supple. No thyromegaly. LUNGS: Clear to auscultation bilaterally. CARDIOVASCULAR: S1 and S2 heard. No rubs or gallops. ABDOMEN: Soft, nontender, nondistended. Normal bowel sounds. No rebound or guarding. MUSCULOSKELETAL: No lower extremity edema bilaterally. NEUROLOGIC: No focal deficits. ASSESSMENT AND PLAN: 82-year-old female coming in with history of paroxysmal atrial fibrillation on Eliquis, transcatheter aortic valve replacement, congestive heart failure, recent lower gastrointestinal bleeding 2 weeks ago, hospitalized for that, status post colonoscopy with internal hemorrhoids and diverticulosis, presents with continued lower gastrointestinal bleeding and anemia, hemoglobin 5.9. 1. Anemia, lower gastrointestinal bleeding-likely secondary to diverticular source. On presentation the hemoglobin 5.9. Has had 2 separate occurrences where she needed PRBC transfusions this admission, most recently 2 days ago - Continue to hold all anticoagulants including Eliquis (since admission, 05/28) - Per GI team recommendations:given positive nuclear tagged RBC scan results from earlier (likely right colon diverticular source), they initially felt no therapeutic intervention other than colectomy will decrease future risk of lower GI bleeding -although again they are going to repeat the nuclear scan today and make a determination if they have to repeat the colonoscopy based on those results (i.e.: If specific bleeding source can be identified and treated) - Continue Protonix twice daily for now - Hospitalist discussed with son and patient 06/06. Given option between colectomy, waiting longer, and home hospice. Patient says "I'm 82, how much longer do I really need? ....But if there's something to be done I don't want to go too early". - IR procedure on hold for now until we had further discussion with hematology oncology team about whether it is okay to administer DDAVP to help improve platelet function and thus lessen the chance of any further bleeding. They are also waiting for further confirmation from renal team to see if the renal function is more optimal at this point to proceed with an IR procedure if that is indeed what we are going to do in the near future. 2. Thrombocytopenia- Platelets had been progressively dropping since admission. Now coming back up, today up to 93 per - Dr. Riddle consulted, follow-up further hematology oncology recognitions, particularly regarding of DDAVP will need to be given 3. History of congestive heart failure. BNP 10,000 this admission. - Continue current cardiac medications cautiously - although we have been holding Entresto since admission secondary to renal insufficiency 4. High cholesterol. -Continue statin 5. History of transcatheter aortic valve replacement (TAVR). - Carefully continue current cardiac medications per cardiology recommendations 6. History of paroxysmal atrial fibrillation. Presently rate controlled - again, continue to monitor heart rate on telemetry. - Again, holding off on anticoagulation given her gastrointestinal bleeding presently right now. -Continue Coreg and follow further cardiology recommendations, particularly regarding when they will consider resuming Entresto 7. SHANEKA -slowly improving with intermittent doses of IV fluids cautiously given given her CHF history -Monitor for now, still holding Entresto as well 8. Gastrointestinal prophylaxis. Again, continue on PPI IV b.i.d. 9. Deep venous thrombosis prophylaxis. SCDs -avoid anticoagulants given GI bleeding Result Diagram: 06/09/181 06/09/18 0441 Results 24hrs Laboratory Tests Test 06/09/18 04:41 White Blood Count 6.2 Red Blood Count 2.63 L Hemoglobin 8.5 L Hematocrit 25.5 L Mean Corpuscular Volume 97.0 Mean Corpuscular Hemoglobin 32.3 Mean Corpuscular Hemoglobin Concent 33.3 Red Cell Distribution Width 16.6 H Platelet Count 93 L Mean Platelet Volume 9.9 Immature Granulocytes % 0.500 H Neutrophils % 72.9 Lymphocytes % 10.5 L Monocytes % 12.8 H Eosinophils % 2.3 Basophils % 1.0 Nucleated Red Blood Cells % 0.0 Immature Granulocytes # 0.030 Neutrophils # 4.5 Lymphocytes # 0.7 L Monocytes # 0.8 Eosinophils # 0.1 Basophils # 0.1 Nucleated Red Blood Cells # 0.0 Sodium Level 137 Potassium Level 4.0 Chloride Level 108 Carbon Dioxide Level 25 Anion Gap 4 L Blood Urea Nitrogen 32 #H Creatinine 1.11 H Est Glomerular Filtrat Rate mL/min Glucose Level 81 Calcium Level 8.6 Exam/Review of Systems Exam Vitals Vital Signs Date Temp Pulse Resp B/P (MAP) Pulse Ox O2 O2 Flow FiO2 Time Delivery Rate 06/09/18 98.2 62 19 144/67 96 07:36 (92) 06/08/18 Room Air 00:00 Intake and Output 06/08/18 06/08/18 06/09/18 1515:00 23:00 07:00 IntakeIntake Total 482 ml OutputOutput Total 2 ml BalanceBalance 480 ml Results Results 24hrs Laboratory Tests Test 06/09/18 04:41 White Blood Count 6.2 Red Blood Count 2.63 L Hemoglobin 8.5 L Hematocrit 25.5 L Mean Corpuscular Volume 97.0 Mean Corpuscular Hemoglobin 32.3 Mean Corpuscular Hemoglobin Concent 33.3 Red Cell Distribution Width 16.6 H Platelet Count 93 L Mean Platelet Volume 9.9 Immature Granulocytes % 0.500 H Neutrophils % 72.9 Lymphocytes % 10.5 L Monocytes % 12.8 H Eosinophils % 2.3 Basophils % 1.0 Nucleated Red Blood Cells % 0.0 Immature Granulocytes # 0.030 Neutrophils # 4.5 Lymphocytes # 0.7 L Monocytes # 0.8 Eosinophils # 0.1 Basophils # 0.1 Nucleated Red Blood Cells # 0.0 Sodium Level 137 Potassium Level 4.0 Chloride Level 108 Carbon Dioxide Level 25 Anion Gap 4 L Blood Urea Nitrogen 32 #H Creatinine 1.11 H Est Glomerular Filtrat Rate mL/min Glucose Level 81 Calcium Level 8.6 Medications Medication Current Medications IV Flush (NS 3 ml) 3 ml PER PROTOCOL IV ; Start 05/28/18 at 19:00 Ondansetron HCl (Zofran Inj) 4 mg Q6H PRN IV NAUSEA/VOMITING; Start 05/28/18 at 19:00 Acetaminophen (Tylenol Tab) 650 mg Q6H PRN PO .PAIN 1-3 OR TEMP; Start 05/28/18 at 19:00 Acetaminophen/ Hydrocodone Bitart ([place] (5/325)) 1 tab Q6H PRN PO .MOD PAIN 4- 6; Start 05/28/18 at 19:00 Docusate Sodium (Colace) 100 mg Q12H PRN PO .CONSTIPATION Last administered on 06/07/18 06:57; Admin Dose 100 MG; Start 05/28/18 at 19:00 Magnesium Hydroxide (Milk Of Mag) 30 ml DAILY PRN PO .CONSTIPATION Last a dministered on 06/06/18 06:47; Admin Dose 30 ML; Start 05/28/18 at 19:00 Albuterol/ Ipratropium (Duoneb) 3 ml Q4H RESP THERAPY PRN HHN SHORTNESS OF BREATH; Start 05/28/18 at 19:00 Hydralazine HCl (Apresoline) 10 mg Q6H PRN IV ELEVATED BLOOD PRESSURE; Start 05/28/18 at 19:00 Nitroglycerin (Nitroglycerin (Sl Tab) 0.4 Mg) 1 tab Q5M PRN SL ANGINA; Start 05/28/18 at 19:00 Atorvastatin Calcium (Lipitor) 10 mg QHS PO Last administered on 06/08/18 21:01; Admin Dose 10 MG; Start 05/28/18 at 21:00 Levothyroxine Sodium (Synthroid) 100 mcg BEFORE BREAKFAST PO Last administered on 06/08/18 06:03; Admin Dose 100 MCG; Start 05/29/18 at 07:00 Calcium Carbonate (Oyster Shell Calcium) 1.25 gm BID PO Last administered on 06/09/18 09:34; Admin Dose 1.25 GM; Start 05/28/18 at 21:00 Cyanocobalamin (Vitamin B12) 1,000 mcg DAILY PO Last administered on 06/09/18 10:20; Admin Dose 1,000 MCG; Start 05/29/18 at 09:00 Multivitamins/ Minerals (Theragran-M) 1 tab DAILY PO Last administered on 06/09/18 09:33; Admin Dose 1 TAB; Start 05/29/18 at 09:00 Pantoprazole (Protonix Tab) 40 mg BID@ PO Last administered on 06/09/18 09:34; Admin Dose 40 MG; Start 06/02/18 at 18:00 Polyethylene Glycol (Miralax) 17 gm DAILY PO Last administered on 3/26/19at 09:35; Admin Dose 17 GM; Start 06/04/18 at 11:30 Carvedilol (Coreg) 6.25 mg BID PO ; Start 06/09/18 at 21:00 LES SAUNDERS Jun 09, 2018 15:52
[2018-06-09 20:30] VITALS: BP 130/60; PULSE 62; RESP 18
[2018-06-09] MEDS: ATORVASTATIN 10 MG TAB PO SCH (20:34)
[2018-06-10] VITALS (18 sets, daily range): BP systolic 104–148; BP diastolic 53–72; PULSE 60–62; RESP 11–18
[2018-06-10] MEDS: PANTOPRAZOLE (EC) 40 MG TAB PO SCH ×2 (06:12→19:00)
[2018-06-10] MEDS: LEVOTHYROXINE 100 MCG TAB PO SCH (06:12)
--- NOTE | 2018-06-10 08:52 | CONS ---
Consult Date/Type/Reason Admit Date/Time May 28, 2018 at 19:26 Initial Consult Date 05/29/18 Type of Consultation: cv Requesting Provider: SHIRA ANTOINE MD Date/Time of Note DATE: 06/10/18 TIME: 08:51 Subjective Interventional cardiology follow-up progress note Subjective: Discussed with staff and telemetry was reviewed. Patient is off tele now Discussed with the patient's daughter and son at bedside She still has dark stool She denies any chest pain or pressure to me has any palpitation to me. she c/o cough Objective: General: Elderly female no acute distress HEENT: NC/AT. pupils are equal. round. NECK: . no stridor. CV: RRR. systolic murmur; no gallop or rubs. PULM: no wheezing or rhonchi. GI: SOFT, NT, ND, no rebound or guarding Extremity: trace B/L LE edema. no clubbing. neuro: awake and alert, Psych: calm and pleasant rectal: deferred Abdominal/pelvic CT done May 30, 2018 shows: No evidence of urolithiasis, obstructive uropathy or diverticulitis. Diverticulosis. Nonvisualization appendix. No bowel mass or obstruction is seen. Cholecystectomy with presumed physiologic intra and extrahepatic bile duct dilatation. Correlation with serum bilirubin levels could be performed if clinically indicated. Aortic valve replacement. Cardiomegaly. Small pericardial effusion. Vascular calcifications. Senescent degenerative changes spine. Tiny right pleural effusion. Objective Vitals Vital Signs Date Temp Pulse Resp B/P (MAP) Pulse Ox O2 O2 Flow FiO2 Time Delivery Rate 06/10/18 97.7 60 18 125/56 98 Room Air 07:59 (79) Intake and Output 06/09/18 06/09/18 06/10/18 1515:00 23:00 07:00 IntakeIntake Total 150 ml 530 ml OutputOutput Total 100 ml 200 ml BalanceBalance 50 ml 330 ml Results/Medications Result Diagram: 06/10/18 0454 06/09/18 0441 Results 24 hrs Laboratory Tests Test 06/10/18 04:54 White Blood Count 6.2 Red Blood Count 2.44 L Hemoglobin 7.9 L Hematocrit 24.2 L Mean Corpuscular Volume 99.2 Mean Corpuscular Hemoglobin 32.4 Mean Corpuscular Hemoglobin Concent 32.6 Red Cell Distribution Width 16.3 H Platelet Count 101 L Mean Platelet Volume 9.6 Immature Granulocytes % 0.500 H Neutrophils % 74.3 Lymphocytes % 10.2 L Monocytes % 12.6 H Eosinophils % 1.8 Basophils % 0.6 Nucleated Red Blood Cells % 0.0 Immature Granulocytes # 0.030 Neutrophils # 4.6 Lymphocytes # 0.6 L Monocytes # 0.8 Eosinophils # 0.1 Basophils # 0.0 Nucleated Red Blood Cells # 0.0 Home Meds Reported Medications Cyanocobalamin (Vitamin B-12) (Vitamin B-12) 1,000 Mcg Tab.subl, 1000 MCG SL DAILY 05/28/18 Multivitamin/Iron/Folic Acid (Centrum Adults Tablet) 1 Each Tablet, 1 EACH PO DAILY, TAB 05/28/18 Calcium Carbonate* (Calcium Carbonate*) 600 MG Ca Tab, 600 MG PO BID, TAB 05/28/18 Omeprazole* (Omeprazole*) 40 Mg Capsule.dr, 40 MG PO DAILY, #30 CAP 05/28/18 Atorvastatin Calcium (Atorvastatin Calcium) 10 Mg Tablet, 10 MG PO QHS, #30 TAB 05/28/18 Apixaban* (Eliquis*) 2.5 Mg Tablet, 2.5 MG PO DAILY, TAB 05/28/18 Sacubitril/Valsartan (Entresto 49 mg-51 mg Tablet) 1 Each Tablet, 1 EACH PO DAILY, TAB 05/28/18 Carvedilol* (Carvedilol*) 6.25 Mg Tablet, 6.25 MG PO DAILY, #60 TAB 05/28/18 Furosemide* (Furosemide*) 40 Mg Tablet, 40 MG PO DAILY, TAB 05/28/18 Spironolactone* (Aldactone*) 25 Mg Tablet, 25 MG PO DAILY, #30 TAB 05/28/18 Levothyroxine Sodium* (Levothyroxine Sodium*) 100 Mcg Tablet, 100 MCG PO BEFORE BREAKFAST, #30 TAB 05/28/18 Medications Current Medications IV Flush (NS 3 ml) 3 ml PER PROTOCOL IV ; Start 05/28/18 at 19:00 Ondansetron HCl (Zofran Inj) 4 mg Q6H PRN IV NAUSEA/VOMITING; Start 05/28/18 at 19:00 Acetaminophen (Tylenol Tab) 650 mg Q6H PRN PO .PAIN 1-3 OR TEMP; Start 05/28/18 at 19:00 Acetaminophen/ Hydrocodone Bitart ([place] (5/325)) 1 tab Q6H PRN PO .MOD PAIN 4- 6; Start 05/28/18 at 19:00 Docusate Sodium (Colace) 100 mg Q12H PRN PO .CONSTIPATION Last administered on 06/07/18 06:57; Admin Dose 100 MG; Start 05/28/18 at 19:00 Magnesium Hydroxide (Milk Of Mag) 30 ml DAILY PRN PO .CONSTIPATION Last administered on 06/06/18 06:47; Admin Dose 30 ML; Start 05/28/18 at 19:00 Albuterol/ Ipratropium (Duoneb) 3 ml Q4H RESP THERAPY PRN HHN SHORTNESS OF BREATH; Start 05/28/18 at 19:00 Hydralazine HCl (Apresoline) 10 mg Q6H PRN IV ELEVATED BLOOD PRESSURE; Start 05/28/18 at 19:00 Nitroglycerin (Nitroglycerin (Sl Tab) 0.4 Mg) 1 tab Q5M PRN SL ANGINA; Start 05/28/18 at 19:00 Atorvastatin Calcium (Lipitor) 10 mg QHS PO Last administered on 06/09/18 20:34; Admin Dose 10 MG; Start 05/28/18 at 21:00 Levothyroxine Sodium (Synthroid) 100 mcg BEFORE BREAKFAST PO Last administered on 06/10/18 06:12; Admin Dose 100 MCG; Start 05/29/18 at 07:00 Calcium Carbonate (Oyster Shell Calcium) 1.25 gm BID PO Last administered on 06/09/18 20:34; Admin Dose 1.25 GM; Start 05/28/18 at 21:00 Cyanocobalamin (Vitamin B12) 1,000 mcg DAILY PO Last administered on 06/09/18 10:20; Admin Dose 1,000 MCG; Start 05/29/18 at 09:00 Multivitamins/ Minerals (Theragran-M) 1 tab DAILY PO Last administered on 06/09/18 09:33; Admin Dose 1 TAB; Start 05/29/18 at 09:00 Pantoprazole (Protonix Tab) 40 mg BID@18 PO Last administered on 06/10/18 06:12; Admin Dose 40 MG; Start 06/02/18 at 18:00 Polyethylene Glycol (Miralax) 17 gm DAILY PO Last administered on 06/09/18at 09:35; Admin Dose 17 GM; Start 06/04/18 at 11:30 Carvedilol (Coreg) 6.25 mg BID PO Last administered on 06/09/18at 20:35; Admin Dose 6.25 MG; Start 06/09/18 at 21:00 Assessment/Plan Hospital Course (Demo Recall) 1. Recurrent lower GI bleed on anticoagulation: Currently off Eliquis 2. 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 Severe cardiomyopathy 4. Sick sinus syndrome with permanent pacemaker 5. History of aortic stenosis status post transcutaneous aortic valve replacement 6 permissive hypertension 7. Chronic kidney disease 8. Anemia secondary to GI bleeding 9. anemia: s/p transfusions Recommendations: Will cont coreg and inc as tolerated Transfusion as needed follow-up with GI recommendations. ? embolization vs colo will resume entresto once BP remains stable. We will hold off for now since the patient is going to be getting angiogram most likely avoid fluid overload Thank you for his referral. We will follow-up with you KAYLAH BAXTER MD [facility] KAYLAH BAXTER MD Jun 10, 2018 08:51
[2018-06-10] MEDS: POLYETHYLENE GLYCOL 17 GM PACKET PO SCH (09:00)
[2018-06-10] MEDS: CYANOCOBALAMIN 500 MCG TAB PO SCH (09:00)
[2018-06-10] MEDS: MULTIVITAMINS/MINERALS TAB PO SCH (09:00)
--- NOTE | 2018-06-10 09:02 | PN ---
DATE: 06/10/2018 SUBJECTIVE: The patient had nuclear scan yesterday which showed ongoing bleeding in the cecum region . The patient's hemoglobin levels continue to decline. No other events noted. OBJECTIVE: VITAL SIGNS: Blood pressure is 125/56, pulse 60, respiration 18, temperature 97.7. HEENT: Head is normocephalic. NECK: Supple. HEART: Regular rate. LUNGS: Show diminished breath sounds at the base. ABDOMEN: Soft, nontender to palpation without rebound or guarding. EXTREMITIES: Negative for clubbing, cyanosis, no edema. DERMATOLOGIC: No rashes. MUSCULOSKELETAL: No joint effusion. NEUROLOGIC: No change in exam. MEDICATIONS: Reviewed. LABORATORY DATA: From 06/10/2018 showed a hemoglobin of 7.9, platelet count is 101. ASSESSMENT AND PLAN: 1. Nonoliguric acute kidney injury with previous baseline creatinine of 1.2 to 1.5 mg/dL. Etiology is secondary to hemodynamics. Renal function stabilized, creatinine below previous baseline. At thi s point, continue current treatment plan, renally dose meds, avoid nephrotoxins. If the patient is t o have a contrast study, would recommend IV hydration and Mucomyst. 2. Chronic kidney disease. Renal function appears to have stabilized. Continue current treatment p mihaela, supportive care, renally dose all meds. 3. Mineral bone disorder. Monitor calcium and phosphorus levels. 4. Anemia with active GI bleeding. The patient had a repeat nuclear scan positive for active bleedi ng. The patient has bloody stools. The patient is pending possible IR embolization. Continue to mo nitor. 5. Atrial fibrillation. Continue medical management. 6. Congestive heart failure. Continue current treatment plan. 7. Hypothyroidism. Continue Synthroid. 8. History of dementia. 9. Dyslipidemia. Continue statin therapy. Dictated By: CATRACHO PALENCIA DO NR/NTS Conf#: [id number] DID#: [id number] CC: LES SAUNDERS;*EndCC*
[2018-06-10] MEDS ORDERED: PEG/ELECTROLYTES 4L BTL PO STA (09:14)
--- NOTE | 2018-06-10 09:32 | PN ---
Date/Time of Note Date/Time of Note DATE: 06/10/18 TIME: 09:28 Assessment/Plan VTE Prophylaxis Risk score (from Ns)>0 risk: 6 SCD applied (from Ns): Yes Pharmacological prophylaxis: other (scds) Lines/Catheters IV Catheter Type (from Nrsg): PICC Line Central line still needed: Yes (meds) Urinary Cath still in place: No Assessment/Plan Hospital Course Assessment: GI bleeding/hematochezia/melena. Likely right colon diverticular source EGD 05/29/2018 distal esophagitis/gastritis no active bleeding Colonoscopy 05/11/2018 sun-diverticulosis with evidence of recent bleeding Anemia Anticoagulation- on hold Dementia A-fib - CKD CHF Thrombocytopenia= Plan: NM bleeding scan positive- will plan for 2 liters Golyltey prep over two hours NPO after 1200 for colonoscopy today Patient seen in collaboration with Dr. Hendrickson/Barber Subjective: Course reviewed with nursing staff Patient interviewed and examined All labs, imaging and other results reviewed Discussed NM bleeding scan results with patient and family Discussed plan for colonoscopy today. I reviewed risk/benefits of sedation and procedure. Family and patient verbalized understanding. PHYSICAL EXAMINATION: GENERAL: Alert & oriented x 3, in no acute distress SKIN: No lesions CHEST: Inspection within normal limits. CARDIOVASCULAR: Heart: Regular rate and rhythm RESPIRATORY: Lungs clear to auscultation GASTROINTESTINAL AND LIVER: Abdomen: Soft, non tenderness, non-distended, no hernias, no masses, no organomegaly, no ascites, no guarding, no rebound te nderness, normoactive bowel sounds. Rectal: Deferred. GENITOURINARY: Female genitalia within normal limits. EXTREMITIES: No cyanosis, clubbing or edema. Result Diagram: 06/10/18 0454 06/09/18 0441 Results 24hrs Laboratory Tests Test 06/10/18 04:54 White Blood Count 6.2 Red Blood Count 2.44 L Hemoglobin 7.9 L Hematocrit 24.2 L Mean Corpuscular Volume 99.2 Mean Corpuscular Hemoglobin 32.4 Mean Corpuscular Hemoglobin Concent 32.6 Red Cell Distribution Width 16.3 H Platelet Count 101 L Mean Platelet Volume 9.6 Immature Granulocytes % 0.500 H Neutrophils % 74.3 Lymphocytes % 10.2 L Monocytes % 12.6 H Eosinophils % 1.8 Basophils % 0.6 Nucleated Red Blood Cells % 0.0 Immature Granulocytes # 0.030 Neutrophils # 4.6 Lymphocytes # 0.6 L Monocytes # 0.8 Eosinophils # 0.1 Basophils # 0.0 Nucleated Red Blood Cells # 0.0 Exam/Review of Systems Exam Vitals Vital Signs Date Temp Pulse Resp B/P (MAP) Pulse Ox O2 O2 Flow FiO2 Time Delivery Rate 06/10/18 97.7 60 18 125/56 98 Room Air 07:59 (79) Intake and Output 06/09/18 06/09/18 06/10/18 1515:00 23:00 07:00 IntakeIntake Total 150 ml 530 ml OutputOutput Total 100 ml 200 ml BalanceBalance 50 ml 330 ml Results Results 24hrs Laboratory Tests Test 06/10/18 04:54 White Blood Count 6.2 Red Blood Count 2.44 L Hemoglobin 7.9 L Hematocrit 24.2 L Mean Corpuscular Volume 99.2 Mean Corpuscular Hemoglobin 32.4 Mean Corpuscular Hemoglobin Concent 32.6 Red Cell Distribution Width 16.3 H Platelet Count 101 L Mean Platelet Volume 9.6 Immature Granulocytes % 0.500 H Neutrophils % 74.3 Lymphocytes % 10.2 L Monocytes % 12.6 H Eosinophils % 1.8 Basophils % 0.6 Nucleated Red Blood Cells % 0.0 Immature Granulocytes # 0.030 Neutrophils # 4.6 Lymphocytes # 0.6 L Monocytes # 0.8 Eosinophils # 0.1 Basophils # 0.0 Nucleated Red Blood Cells # 0.0 Medications Medication Current Medications IV Flush (NS 3 ml) 3 ml PER PROTOCOL IV ; Start 05/28/18 at 19:00 Ondansetron HCl (Zofran Inj) 4 mg Q6H PRN IV NAUSEA/VOMITING; Start 05/28/18 at 19:00 Acetaminophen (Tylenol Tab) 650 mg Q6H PRN PO .PAIN 1-3 OR TEMP; Start 05/28/18 at 19:00 Acetaminophen/ Hydrocodone Bitart ([place] (5/325)) 1 tab Q6H PRN PO .MOD PAIN 4- 6; Start 05/28/18 at 19:00 Docusate Sodium (Colace) 100 mg Q12H PRN PO .CONSTIPATION Last administered on 06/07/18at 06:57; Admin Dose 100 MG; Start 05/28/18 at 19:00 Magnesium Hydroxide (Milk Of Mag) 30 ml DAILY PRN PO .CONSTIPATION Last administered on 06/06/18 06:47; Admin Dose 30 ML; Start 05/28/18 at 19:00 Albuterol/ Ipratropium (Duoneb) 3 ml Q4H RESP THERAPY PRN HHN SHORTNESS OF BREATH; Start 05/28/18 at 19:00 Hydralazine HCl (Apresoline) 10 mg Q6H PRN IV ELEVATED BLOOD PRESSURE; Start 05/28/18 at 19:00 Nitroglycerin (Nitroglycerin (Sl Tab) 0.4 Mg) 1 tab Q5M PRN SL ANGINA; Start 05/28/18 at 19:00 Atorvastatin Calcium (Lipitor) 10 mg QHS PO Last administered on 06/09/18 20:34; Admin Dose 10 MG; Start 05/28/18 at 21:00 Levothyroxine Sodium (Synthroid) 100 mcg BEFORE BREAKFAST PO Last administered on 06/10/18 06:12; Admin Dose 100 MCG; Start 05/29/18 at 07:00 Calcium Carbonate (Oyster Shell Calcium) 1.25 gm BID PO Last administered on 06/09/18 20:34; Admin Dose 1.25 GM; Start 05/28/18 at 21:00 Cyanocobalamin (Vitamin B12) 1,000 mcg DAILY PO Last administered on 06/09/18 10:20; Admin Dose 1,000 MCG; Start 05/29/18 at 09:00 Multivitamins/ Minerals (Theragran-M) 1 tab DAILY PO Last administered on 06/09/18 09:33; Admin Dose 1 TAB; Start 05/29/18 at 09:00 Pantoprazole (Protonix Tab) 40 mg BID@06,18 PO Last administered on 06/10/18 06:12; Admin Dose 40 MG; Start 06/02/18 at 18:00 Polyethylene Glycol (Miralax) 17 gm DAILY PO Last administered on 06/09/18 09:35; Admin Dose 17 GM; Start 06/04/18 at 11:30 Carvedilol (Coreg) 6.25 mg BID PO Last administered on 06/09/18 20:35; Admin Dose 6.25 MG; Start 06/09/18 at 21:00 Polyethylene Glycol/ Electrolytes (Golytely) 2,000 ml ONCE STAT PO ; Start 06/10/18 at 09:14; Stop 06/10/18 at 09:15; Status UNV JERROD MORGAN Jun 10, 2018 09:32
[2018-06-10] MEDS: CALCIUM CARBONATE 1.25 GM TAB PO SCH ×2 (09:48→21:37)
[2018-06-10] MEDS ORDERED: BISACODYL (EC) 5 MG TAB PO ONE (10:00)
--- NOTE | 2018-06-10 12:13 | CONS ---
Assessment/Plan Assessment/Plan Hospital Course (Demo Recall) # Thrombocytopenia- Platelet 101K today * -she had normal plt count of 201K as an outpt so the thrombocytopenia is a new development * thrombocytopenia is likely secondary to consumption from the brisk GI Bleed. no DIC or TTP * I do not feel that DDAVP will add much to her situation # Diverticular GI bleed * s/p recent scopes with EGD 05/29/2018 distal esophagitis/gastritis no active bleeding Colonoscopy 05/11/2018 sun-diverticulosis with evidence of recent bleeding * Nuclear medicine bleeding scan positive * at colonoscopy now # Anemia- * due to above, Hgb 7.9 today * transfuse to keep hgb > 7 will sign off, please call with questions or acute issues. thank you. Consultation Date/Type/Reason Admit Date/Time May 28, 2018 at 19:26 Initial Consult Date 06/04/18 Requesting Provider: SHIRA ANTOINE MD Date/Time of Note DATE: 06/10/18 TIME: 12:13 24 HR Interval Summary Free Text/Dictation plt count 101K today, has been trending up pt off of floor for colonoscopy Exam/Review of Systems Exam Vitals Vital Signs Date Temp Pulse Resp B/P (MAP) Pulse Ox O2 O2 Flow FiO2 Time Delivery Rate 06/10/18 97.7 60 18 125/56 98 Room Air 07:59 (79) Intake and Output 06/09/18 06/09/18 06/10/18 1515:00 23:00 07:00 IntakeIntake Total 150 ml 530 ml OutputOutput Total 100 ml 200 ml BalanceBalance 50 ml 330 ml Results Result Diagram: 06/10/18 0454 06/09/18 0441 Results 24hrs Laboratory Tests Test 06/10/18 04:54 White Blood Count 6.2 Red Blood Count 2.44 L Hemoglobin 7.9 L Hematocrit 24.2 L Mean Corpuscular Volume 99.2 Mean Corpuscular Hemoglobin 32.4 Mean Corpuscular Hemoglobin Concent 32.6 Red Cell Distribution Width 16.3 H Platelet Count 101 L Mean Platelet Volume 9.6 Immature Granulocytes % 0.500 H Neutrophils % 74.3 Lymphocytes % 10.2 L Monocytes % 12.6 H Eosinophils % 1.8 Basophils % 0.6 Nucleated Red Blood Cells % 0.0 Immature Granulocytes # 0.030 Neutrophils # 4.6 Lymphocytes # 0.6 L Monocytes # 0.8 Eosinophils # 0.1 Basophils # 0.0 Nucleated Red Blood Cells # 0.0 Medications Medication Current Medications IV Flush (NS 3 ml) 3 ml PER PROTOCOL IV ; Start 05/28/18 at 19:00 Ondansetron HCl (Zofran Inj) 4 mg Q6H PRN IV NAUSEA/VOMITING; Start 05/28/18 at 19:00 Acetaminophen (Tylenol Tab) 650 mg Q6H PRN PO .PAIN 1-3 OR TEMP; Start 05/28/18 at 19:00 Acetaminophen/ Hydrocodone Bitart ([place] (5/325)) 1 tab Q6H PRN PO .MOD PAIN 4- 6; Start 05/28/18 at 19:00 Docusate Sodium (Colace) 100 mg Q12H PRN PO .CONSTIPATION Last administered on 06/07/18 06:57; Admin Dose 100 MG; Start 05/28/18 at 19:00 Magnesium Hydroxide (Milk Of Mag) 30 ml DAILY PRN PO .CONSTIPATION Last administered on 06/06/18at 06:47; Admin Dose 30 ML; Start 05/28/18 at 19:00 Albuterol/ Ipratropium (Duoneb) 3 ml Q4H RESP THERAPY PRN HHN SHORTNESS OF BREATH; Start 05/28/18 at 19:00 Hydralazine HCl (Apresoline) 10 mg Q6H PRN IV ELEVATED BLOOD PRESSURE; Start 05/28/18 at 19:00 Nitroglycerin (Nitroglycerin (Sl Tab) 0.4 Mg) 1 tab Q5M PRN SL ANGINA; Start 05/28/18 at 19:00 Atorvastatin Calcium (Lipitor) 10 mg QHS PO Last administered on 06/09/18at 20:34; Admin Dose 10 MG; Start 05/28/18 at 21:00 Levothyroxine Sodium (Synthroid) 100 mcg BEFORE BREAKFAST PO Last administered on 06/10/18at 06:12; Admin Dose 100 MCG; Start 05/29/18 at 07:00 Calcium Carbonate (Oyster Shell Calcium) 1.25 gm BID PO Last administered on 06/10/18at 09:48; Admin Dose 1.25 GM; Start 05/28/18 at 21:00 Cyanocobalamin (Vitamin B12) 1,000 mcg DAILY PO Last administered on 06/09/18 10:20; Admin Dose 1,000 MCG; Start 05/29/18 at 09:00 Multivitamins/ Minerals (Theragran-M) 1 tab DAILY PO Last administered on 06/09/18 09:33; Admin Dose 1 TAB; Start 05/29/18 at 09:00 Pantoprazole (Protonix Tab) 40 mg BID@06,18 PO Last administered on 06/10/18 06:12; Admin Dose 40 MG; Start 06/02/18 at 18:00 Polyethylene Glycol (Miralax) 17 gm DAILY PO Last administered on 06/09/18 09:35; Admin Dose 17 GM; Start 06/04/18 at 11:30 Carvedilol (Coreg) 6.25 mg BID PO Last administered on 06/10/18 09:48; Admin Dose 6.25 MG; Start 06/09/18 at 21:00 AIME LASSITER Jun 10, 2018 12:13
--- NOTE | 2018-06-10 13:38 | PN ---
Date/Time of Note Date/Time of Note DATE: 06/10/18 TIME: 13:33 Assessment/Plan VTE Prophylaxis Risk score (from Ns)>0 risk: 6 SCD applied (from Ns): Yes Pharmacological prophylaxis: NA/contraindicated Pharm contraindication: bleeding Lines/Catheters IV Catheter Type (from Nrsg): PICC Line Central line still needed: Yes Urinary Cath still in place: No Assessment/Plan Hospital Course S: Patient had nuclear GI bleeding scan performed yesterday, now about to undergo colonoscopy later this afternoon. O: VS - see below PHYSICAL EXAMINATION: GENERAL: lying in bed, NAD HEENT: Pupils equal, round, reactive to light. Extraocular muscles intact. NECK: Supple. No thyromegaly. LUNGS: Clear to auscultation bilaterally. CARDIOVASCULAR: S1 and S2 heard. No rubs or gallops. ABDOMEN: Soft, nontender, nondistended. Normal bowel sounds. No rebound or guarding. MUSCULOSKELETAL: No lower extremity edema bilaterally. NEUROLOGIC: No focal deficits. GI bleeding scan June 09, 2018: IMPRESSION: Scintigraphically detectable gastrointestinal bleeding in the right lower abdominal quadrant, with the likely origin in the cecum. ASSESSMENT AND PLAN: 82-year-old female coming in with history of paroxysmal atrial fibrillation on Eliquis, transcatheter aortic valve replacement, congestive heart failure, recent lower gastrointestinal bleeding 2 weeks ago, hospitalized for that, status post colonoscopy with internal hemorrhoids and diverticulosis, presents with continued lower gastrointestinal bleeding and anemia, hemoglobin 5.9. 1. Anemia, lower gastrointestinal bleeding-likely secondary to diverticular source. On presentation the hemoglobin 5.9. Has had 2 separate occurrences where she needed PRBC transfusions this admission, most recently 3 days ago - Continue to hold all anticoagulants including Eliquis (since admission, 05/28) - Per GI team recommendations:given positive nuclear tagged RBC scan results both from May 29 and from yesterday June 09 (likely right colon diverticular source), they will plan to perform colonoscopy today, follow-up post procedure recommendations - Continue Protonix twice daily for now -Of note, IR procedure has been on hold for now until we had further discussion with hematology oncology team about whether it is okay to administer DDAVP to help improve platelet function and thus lessen the chance of any further bleeding. They are also waiting for further confirmation from renal team to see if the renal function is more optimal at this point to proceed with an IR procedure if that is indeed what we are going to do in the near future. -We will check H&H later this evening 2. Thrombocytopenia- Platelets had been progressively dropping since admission. Now coming back up, today up to 101 today. -Monitor, follow-up further hematology oncology recommendations, they are not recommending DDAVP to be given at this time. 3. History of congestive heart failure. BNP 10,000 this admission. - Continue current cardiac medications cautiously - although we have been holding Entresto since admission secondary to renal insufficiency 4. High cholesterol. -Continue statin 5. History of transcatheter aortic valve replacement (TAVR). - Carefully continue current cardiac medications per cardiology recommendations 6. History of paroxysmal atrial fibrillation. Presently rate controlled - again, continue to monitor heart rate on telemetry. - Again, holding off on anticoagulation given her gastrointestinal bleeding presently right now. -Continue Coreg and follow further cardiology recommendations, particularly regarding when they will consider resuming Entresto 7. SHANEKA -slowly improving with intermittent doses of IV fluids cautiously given given her CHF history -Monitor for now, still holding Entresto as well 8. Gastrointestinal prophylaxis. Again, continue on PPI IV b.i.d. 9. Deep venous thrombosis prophylaxis. SCDs - avoid anticoagulants given GI bleeding Result Diagram: 06/10/18 0454 06/09/18 0441 Results 24hrs Laboratory Tests Test 06/10/18 04:54 White Blood Count 6.2 Red Blood Count 2.44 L Hemoglobin 7.9 L Hematocrit 24.2 L Mean Corpuscular Volume 99.2 Mean Corpuscular Hemoglobin 32.4 Mean Corpuscular Hemoglobin Concent 32.6 Red Cell Distribution Width 16.3 H Platelet Count 101 L Mean Platelet Volume 9.6 Immature Granulocytes % 0.500 H Neutrophils % 74.3 Lymphocytes % 10.2 L Monocytes % 12.6 H Eosinophils % 1.8 Basophils % 0.6 Nucleated Red Blood Cells % 0.0 Immature Granulocytes # 0.030 Neutrophils # 4.6 Lymphocytes # 0.6 L Monocytes # 0.8 Eosinophils # 0.1 Basophils # 0.0 Nucleated Red Blood Cells # 0.0 Exam/Review of Systems Exam Vitals Vital Signs Date Temp Pulse Resp B/P (MAP) Pulse Ox O2 O2 Flow FiO2 Time Delivery Rate 06/10/18 97.7 60 18 125/56 98 Room Air 07:59 (79) Intake and Output 06/09/18 06/09/18 06/10/18 1515:00 23:00 07:00 IntakeIntake Total 150 ml 530 ml OutputOutput Total 100 ml 200 ml BalanceBalance 50 ml 330 ml Results Results 24hrs Laboratory Tests Test 06/10/18 04:54 White Blood Count 6.2 Red Blood Count 2.44 L Hemoglobin 7.9 L Hematocrit 24.2 L Mean Corpuscular Volume 99.2 Mean Corpuscular Hemoglobin 32.4 Mean Corpuscular Hemoglobin Concent 32.6 Red Cell Distribution Width 16.3 H Platelet Count 101 L Mean Platelet Volume 9.6 Immature Granulocytes % 0.500 H Neutrophils % 74.3 Lymphocytes % 10.2 L Monocytes % 12.6 H Eosinophils % 1.8 Basophils % 0.6 Nucleated Red Blood Cells % 0.0 Immature Granulocytes # 0.030 Neutrophils # 4.6 Lymphocytes # 0.6 L Monocytes # 0.8 Eosinophils # 0.1 Basophils # 0.0 Nucleated Red Blood Cells # 0.0 Medications Medication Current Medications IV Flush (NS 3 ml) 3 ml PER PROTOCOL IV ; Start 05/28/18 at 19:00 Ondansetron HCl (Zofran Inj) 4 mg Q6H PRN IV NAUSEA/VOMITING; Start 05/28/18 at 19:00 Acetaminophen (Tylenol Tab) 650 mg Q6H PRN PO .PAIN 1-3 OR TEMP; Start 05/28/18 at 19:00 Acetaminophen/ Hydrocodone Bitart ([place] (5/325)) 1 tab Q6H PRN PO .MOD PAIN 4- 6; Start 05/28/18 at 19:00 Docusate Sodium (Colace) 100 mg Q12H PRN PO .CONSTIPATION Last administered on 06/07/18at 06:57; Admin Dose 100 MG; Start 05/28/18 at 19:00 Magnesium Hydroxide (Milk Of Mag) 30 ml DAILY PRN PO .CONSTIPATION Last a dministered on 06/06/18at 06:47; Admin Dose 30 ML; Start 05/28/18 at 19:00 Albuterol/ Ipratropium (Duoneb) 3 ml Q4H RESP THERAPY PRN HHN SHORTNESS OF BREATH; Start 05/28/18 at 19:00 Hydralazine HCl (Apresoline) 10 mg Q6H PRN IV ELEVATED BLOOD PRESSURE; Start 05/28/18 at 19:00 Nitroglycerin (Nitroglycerin (Sl Tab) 0.4 Mg) 1 tab Q5M PRN SL ANGINA; Start 05/28/18 at 19:00 Atorvastatin Calcium (Lipitor) 10 mg QHS PO Last administered on 06/09/18 20:34; Admin Dose 10 MG; Start 05/28/18 at 21:00 Levothyroxine Sodium (Synthroid) 100 mcg BEFORE BREAKFAST PO Last administered on 06/10/18 06:12; Admin Dose 100 MCG; Start 05/29/18 at 07:00 Calcium Carbonate (Oyster Shell Calcium) 1.25 gm BID PO Last administered on 06/10/18 09:48; Admin Dose 1.25 GM; Start 05/28/18 at 21:00 Cyanocobalamin (Vitamin B12) 1,000 mcg DAILY PO Last administered on 06/09/18 10:20; Admin Dose 1,000 MCG; Start 05/29/18 at 09:00; Status Hold Multivitamins/ Minerals (Theragran-M) 1 tab DAILY PO Last administered on 06/09/18 09:33; Admin Dose 1 TAB; Start 05/29/18 at 09:00 Pantoprazole (Protonix Tab) 40 mg BID@06,18 PO Last administered on 06/10/18 06:12; Admin Dose 40 MG; Start 06/02/18 at 18:00 Polyethylene Glycol (Miralax) 17 gm DAILY PO Last administered on 06/09/18 09:35; Admin Dose 17 GM; Start 06/04/18 at 11:30 Carvedilol (Coreg) 6.25 mg BID PO Last administered on 06/10/18 09:48; Admin Dose 6.25 MG; Start 06/09/18 at 21:00 LES SAUNDERS Jun 10, 2018 13:38
--- NOTE | 2018-06-10 13:39 | PREAC ---
Date/Time of Note Date/Time of Note DATE: 06/10/18 TIME: 13:37 Anesthesia Eval and Record Evaluation Time Pre-Procedure Interview DATE: 06/10/18 TIME: 13:37 Age 82 Sex female NPO: 2 hrs clear liquids Preoperative diagnosis rectal bleeding Planned procedure colonoscopy Past Medical History Past Medical History: Includes Cardio: Dyslipidemia, CAD, PTCA/Stent, Arrythmia, PPM/AICD, CHF Heme: Anemia Surgery & Anesthesia Issues No known issue Meds Anticoagulation: No Beta Jacob within 24 hr: No Reason Beta Jacob not given: Pt. not on B-Jacob Reported Medications Cyanocobalamin (Vitamin B-12) (Vitamin B-12) 1,000 Mcg Tab.subl, 1000 MCG SL DAILY 05/28/18 Multivitamin/Iron/Folic Acid (Centrum Adults Tablet) 1 Each Tablet, 1 EACH PO DAILY, TAB 05/28/18 Calcium Carbonate* (Calcium Carbonate*) 600 MG Ca Tab, 600 MG PO BID, TAB 05/28/18 Omeprazole* (Omeprazole*) 40 Mg Capsule.dr, 40 MG PO DAILY, #30 CAP 05/28/18 Atorvastatin Calcium (Atorvastatin Calcium) 10 Mg Tablet, 10 MG PO QHS, #30 TAB 05/28/18 Apixaban* (Eliquis*) 2.5 Mg Tablet, 2.5 MG PO DAILY, TAB 05/28/18 Sacubitril/Valsartan (Entresto 49 mg-51 mg Tablet) 1 Each Tablet, 1 EACH PO DAILY, TAB 05/28/18 Carvedilol* (Carvedilol*) 6.25 Mg Tablet, 6.25 MG PO DAILY, #60 TAB 05/28/18 Furosemide* (Furosemide*) 40 Mg Tablet, 40 MG PO DAILY, TAB 05/28/18 Spironolactone* (Aldactone*) 25 Mg Tablet, 25 MG PO DAILY, #30 TAB 05/28/18 Levothyroxine Sodium* (Levothyroxine Sodium*) 100 Mcg Tablet, 100 MCG PO BEFORE BREAKFAST, #30 TAB 05/28/18 Current Medications IV Flush (NS 3 ml) 3 ml PER PROTOCOL IV ; Start 05/28/18 at 19:00 Ondansetron HCl (Zofran Inj) 4 mg Q6H PRN IV NAUSEA/VOMITING; Start 05/28/18 at 19:00 Acetaminophen (Tylenol Tab) 650 mg Q6H PRN PO .PAIN 1-3 OR TEMP; Start 05/28/18 at 19:00 Acetaminophen/ Hydrocodone Bitart ([place] (5/325)) 1 tab Q6H PRN PO .MOD PAIN 4- 6; Start 05/28/18 at 19:00 Docusate Sodium (Colace) 100 mg Q12H PRN PO .CONSTIPATION Last administered on 06/07/18 06:57; Admin Dose 100 MG; Start 05/28/18 at 19:00 Magnesium Hydroxide (Milk Of Mag) 30 ml DAILY PRN PO .CONSTIPATION Last administered on 06/06/18 06:47; Admin Dose 30 ML; Start 05/28/18 at 19:00 Albuterol/ Ipratropium (Duoneb) 3 ml Q4H RESP THERAPY PRN HHN SHORTNESS OF BREATH; Start 05/28/18 at 19:00 Hydralazine HCl (Apresoline) 10 mg Q6H PRN IV ELEVATED BLOOD PRESSURE; Start 05/28/18 at 19:00 Nitroglycerin (Nitroglycerin (Sl Tab) 0.4 Mg) 1 tab Q5M PRN SL ANGINA; Start 05/28/18 at 19:00 Atorvastatin Calcium (Lipitor) 10 mg QHS PO Last administered on 06/09/18 20:34; Admin Dose 10 MG; Start 05/28/18 at 21:00 Levothyroxine Sodium (Synthroid) 100 mcg BEFORE BREAKFAST PO Last administered on 06/10/18 06:12; Admin Dose 100 MCG; Start 05/29/18 at 07:00 Calcium Carbonate (Oyster Shell Calcium) 1.25 gm BID PO Last administered on 06/10/18 09:48; Admin Dose 1.25 GM; Start 05/28/18 at 21:00 Cyanocobalamin (Vitamin B12) 1,000 mcg DAILY PO Last administered on 06/09/18 10:20; Admin Dose 1,000 MCG; Start 05/29/18 at 09:00; Status Hold Multivitamins/ Minerals (Theragran-M) 1 tab DAILY PO Last administered on 06/09/18 09:33; Admin Dose 1 TAB; Start 05/29/18 at 09:00 Pantoprazole (Protonix Tab) 40 mg BID@06,18 PO Last administered on 06/10/18at 06:12; Admin Dose 40 MG; Start 06/02/18 at 18:00 Polyethylene Glycol (Miralax) 17 gm DAILY PO Last administered on 06/09/18at 09:35; Admin Dose 17 GM; Start 06/04/18 at 11:30 Carvedilol (Coreg) 6.25 mg BID PO Last administered on 06/10/18at 09:48; Admin Dose 6.25 MG; Start 06/09/18 at 21:00 Meds reviewed: Yes Allergies Coded Allergies: No Known Allergy (Unverified , 06/02/18) Allergies Reviewed: Yes Labs/Studies Labs Reviewed: Reviewed by anesthesiologist Result Diagram: 06/10/18 0454 06/09/18 0441 Laboratory Tests 06/10/18 04:54 test: N/A Pre-procedure Exam Last vitals Vital Signs Date Temp Pulse Resp B/P (MAP) Pulse Ox O2 O2 Flow FiO2 Time Delivery Rate 06/10/18 97.7 60 18 125/56 98 Room Air 07:59 (79) Airway: Adequate mouth opening, Adequate thyromental dist Mallampati: Mallampati II Teeth: Normal Lung: Normal Heart: Normal ASA Physical Status ASA physical status: 4 Emergency: None Pre-operative Attestations Prior to commencing anesthesia and surgery, the patient was re-evaluated, there was verification of: *The patient's identity *The results of appropriate recent lab work and preoperative vital signs *The above evaluation not changing prior to induction *Anesthetic plan, risk benefits, alternative and complications discussed with patient/family; questions answered; patient/family understands, accepts and wishes to proceed. TANNER HERRERA DO Jun 10, 2018 13:39
--- NOTE | 2018-06-10 13:40 | HPN ---
Date/Time of Note Date/Time of Note DATE: 06/10/18 TIME: 13:40 Interval H&P Admission Note Pt. seen H&P reviewed: No system changes JASPREET MCCULLOUGH Jun 10, 2018 13:40
[2018-06-10] MEDS ORDERED: MIDAZOLAM 1 MG/ML 2 ML INJ ONE (13:45)
[2018-06-10] MEDS ORDERED: FENTAnyl 50 MCG/ML VIAL ONE (13:45)
[2018-06-10] MEDS ORDERED: ONDANSETRON 4 MG INJ IV PRN (14:00)
[2018-06-10] MEDS ORDERED: LABETALOL HCL 20MG INJ IV PRN (14:00)
[2018-06-10] MEDS ORDERED: hydrALAzine 20 MG INJ IV PRN (14:00)
[2018-06-10] MEDS ORDERED: DIATR MEGLU/DIATRIZOATE SODIUM 120 ML BTL ONE (18:13)
[2018-06-10] MEDS: ATORVASTATIN 10 MG TAB PO SCH (21:37)
[2018-06-11] VITALS (7 sets, daily range): BP systolic 110–152; BP diastolic 58–71; PULSE 60–74; RESP 16–20
[2018-06-11] MEDS: LEVOTHYROXINE 100 MCG TAB PO SCH (06:09)
[2018-06-11] MEDS: PANTOPRAZOLE (EC) 40 MG TAB PO SCH ×2 (06:09→18:59)
[2018-06-11] MEDS ORDERED: POTASSIUM CHLORIDE (SR) 20 MEQ TAB PO STA ×2 (08:36→08:58)
--- NOTE | 2018-06-11 08:36 | CONS ---
Consult Date/Type/Reason Admit Date/Time May 28, 2018 at 19:26 Initial Consult Date 05/29/18 Type of Consultation: cv Requesting Provider: SHIRA ANTOINE MD Date/Time of Note DATE: 06/11/18 TIME: 08:32 Subjective Interventional cardiology follow-up progress note Subjective: Discussed with staff and telemetry was reviewed. Patient is off tele now Discussed with the patient's son at bedside She still has dark stool She denies any chest pain or pressure to me has any palpitation to me. she c/o cough s/p colo again on 06/10 Objective: General: Elderly female no acute distress HEENT: NC/AT. pupils are equal. round. NECK: . no stridor. CV: RRR. systolic murmur; no gallop or rubs. PULM: no wheezing or rhonchi. GI: SOFT, NT, ND, no rebound or guarding Extremity: trace B/L LE edema. no clubbing. neuro: awake and alert, Psych: calm and pleasant rectal: deferred Abdominal/pelvic CT done May 30, 2018 shows: No evidence of urolithiasis, obstructive uropathy or diverticulitis. Diverticulosis. Nonvisualization appendix. No bowel mass or obstruction is seen. Cholecystectomy with presumed physiologic intra and extrahepatic bile duct dilatation. Correlation with serum bilirubin levels could be performed if clinically indicated. Aortic valve replacement. Cardiomegaly. Small pericardial effusion. Vascular calcifications. Senescent degenerative changes spine. Tiny right pleural effusion. Objective Vitals Vital Signs Date Temp Pulse Resp B/P (MAP) Pulse Ox O2 O2 Flow FiO2 Time Delivery Rate 06/11/18 97.7 60 16 124/60 95 02:30 (81) 06/10/18 Room Air 16:35 06/10/18 2.0 14:19 Intake and Output 06/10/18 06/10/18 06/11/18 1515:00 23:00 07:00 IntakeIntake Total 450 ml OutputOutput Total 5 ml 1 ml BalanceBalance 445 ml -1 ml Results/Medications Result Diagram: 06/11/18 0432 06/11/18 0432 Results 24 hrs Laboratory Tests Test 06/10/18 20:26 06/11/18 04:32 Hemoglobin 8.5 L 7.3 L Hematocrit 25.4 L 22.7 L White Blood Count 5.5 Red Blood Count 2.28 L Mean Corpuscular Volume 99.6 Mean Corpuscular Hemoglobin 32.0 Mean Corpuscular Hemoglobin Concent 32.2 Red Cell Distribution Width 16.5 H Platelet Count 122 #L Mean Platelet Volume 9.7 Immature Granulocytes % 0.400 Neutrophils % 78.1 H Lymphocytes % 10.1 L Monocytes % 9.4 Eosinophils % 1.3 Basophils % 0.7 Nucleated Red Blood Cells % 0.0 Immature Granulocytes # 0.020 Neutrophils # 4.3 Lymphocytes # 0.6 L Monocytes # 0.5 Eosinophils # 0.1 Basophils # 0.0 Nucleated Red Blood Cells # 0.0 Sodium Level 144 Potassium Level 3.3 L Chloride Level 109 Carbon Dioxide Level 27 Anion Gap 8 Blood Urea Nitrogen 26 H Creatinine 1.00 Est Glomerular Filtrat Rate mL/min Glucose Level 86 Calcium Level 8.7 Phosphorus Level 4.0 Magnesium Level 1.9 Home Meds Reported Medications Cyanocobalamin (Vitamin B-12) (Vitamin B-12) 1,000 Mcg Tab.subl, 1000 MCG SL DAILY 05/28/18 Multivitamin/Iron/Folic Acid (Centrum Adults Tablet) 1 Each Tablet, 1 EACH PO DAILY, TAB 05/28/18 Calcium Carbonate* (Calcium Carbonate*) 600 MG Ca Tab, 600 MG PO BID, TAB 05/28/18 Omeprazole* (Omeprazole*) 40 Mg Capsule.dr, 40 MG PO DAILY, #30 CAP 05/28/18 Atorvastatin Calcium (Atorvastatin Calcium) 10 Mg Tablet, 10 MG PO QHS, #30 TAB 05/28/18 Apixaban* (Eliquis*) 2.5 Mg Tablet, 2.5 MG PO DAILY, TAB 05/28/18 Sacubitril/Valsartan (Entresto 49 mg-51 mg Tablet) 1 Each Tablet, 1 EACH PO DAILY, TAB 05/28/18 Carvedilol* (Carvedilol*) 6.25 Mg Tablet, 6.25 MG PO DAILY, #60 TAB 05/28/18 Furosemide* (Furosemide*) 40 Mg Tablet, 40 MG PO DAILY, TAB 05/28/18 Spironolactone* (Aldactone*) 25 Mg Tablet, 25 MG PO DAILY, #30 TAB 05/28/18 Levothyroxine Sodium* (Levothyroxine Sodium*) 100 Mcg Tablet, 100 MCG PO BEFORE BREAKFAST, #30 TAB 05/28/18 Medications Current Medications IV Flush (NS 3 ml) 3 ml PER PROTOCOL IV ; Start 05/28/18 at 19:00 Ondansetron HCl (Zofran Inj) 4 mg Q6H PRN IV NAUSEA/VOMITING; Start 05/28/18 at 19:00 Acetaminophen (Tylenol Tab) 650 mg Q6H PRN PO .PAIN 1-3 OR TEMP; Start 05/28/18 at 19:00 Acetaminophen/ Hydrocodone Bitart ([place] (5/325)) 1 tab Q6H PRN PO .MOD PAIN 4- 6; Start 05/28/18 at 19:00 Docusate Sodium (Colace) 100 mg Q12H PRN PO .CONSTIPATION Last administered on 06/07/18 06:57; Admin Dose 100 MG; Start 05/28/18 at 19:00 Magnesium Hydroxide (Milk Of Mag) 30 ml DAILY PRN PO .CONSTIPATION Last administered on 06/06/18 06:47; Admin Dose 30 ML; Start 05/28/18 at 19:00 Albuterol/ Ipratropium (Duoneb) 3 ml Q4H RESP THERAPY PRN HHN SHORTNESS OF BREATH; Start 05/28/18 at 19:00 Hydralazine HCl (Apresoline) 10 mg Q6H PRN IV ELEVATED BLOOD PRESSURE; Start 05/28/18 at 19:00 Nitroglycerin (Nitroglycerin (Sl Tab) 0.4 Mg) 1 tab Q5M PRN SL ANGINA; Start 05/28/18 at 19:00 Atorvastatin Calcium (Lipitor) 10 mg QHS PO Last administered on 06/10/18at 21:37; Admin Dose 10 MG; Start 05/28/18 at 21:00 Levothyroxine Sodium (Synthroid) 100 mcg BEFORE BREAKFAST PO Last administered on 06/11/18 06:09; Admin Dose 100 MCG; Start 05/29/18 at 07:00 Calcium Carbonate (Oyster Shell Calcium) 1.25 gm BID PO Last administered on 06/10/18 21:37; Admin Dose 1.25 GM; Start 05/28/18 at 21:00 Cyanocobalamin (Vitamin B12) 1,000 mcg DAILY PO Last administered on 06/09/18at 10:20; Admin Dose 1,000 MCG; Start 05/29/18 at 09:00; Status Hold Multivitamins/ Minerals (Theragran-M) 1 tab DAILY PO Last administered on 06/09/18at 09:33; Admin Dose 1 TAB; Start 05/29/18 at 09:00 Pantoprazole (Protonix Tab) 40 mg BID@06,18 PO Last administered on 06/11/18at 06:09; Admin Dose 40 MG; Start 06/02/18 at 18:00 Polyethylene Glycol (Miralax) 17 gm DAILY PO Last administered on 06/09/18at 09 :35; Admin Dose 17 GM; Start 06/04/18 at 11:30 Carvedilol (Coreg) 6.25 mg BID PO Last administered on 06/10/18at 21:37; Admin Dose 6.25 MG; Start 06/09/18 at 21:00 Assessment/Plan Hospital Course (Demo Recall) 1. Recurrent lower GI bleed on anticoagulation: Currently off Eliquis 2. 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 Severe cardiomyopathy 4. Sick sinus syndrome with permanent pacemaker 5. History of aortic stenosis status post transcutaneous aortic valve replacement 6 permissive hypertension 7. Chronic kidney disease 8. Anemia secondary to GI bleeding 9. anemia: s/p transfusions Recommendations: Will cont coreg and inc as tolerated Transfusion as needed follow-up with GI recommendations. ? embolization vs colo will need to resume entresto if the patient is not going to be getting angiogram avoid fluid overload Thank you for his referral. We will follow-up with you KAYLAH BAXTER MD [facility] KAYLAH BAXTER MD Jun 11, 2018 08:36
[2018-06-11] MEDS: POLYETHYLENE GLYCOL 17 GM PACKET PO SCH (09:00)
[2018-06-11] MEDS: CALCIUM CARBONATE 1.25 GM TAB PO SCH ×2 (09:02→21:00)
[2018-06-11] MEDS: MULTIVITAMINS/MINERALS TAB PO SCH (09:02)
--- NOTE | 2018-06-11 09:17 | PN ---
DATE: 06/11/2018 SUBJECTIVE: The patient is stable. The patient had a small bowel study performed yesterday. The narinder rivas continues to have bloody stools, dark. No episodes of hemoptysis, hematemesis or hematochezia. OBJECTIVE: VITAL SIGNS: Blood pressure is 119/58, respirations 18, pulse 68, temperature 98.1. HEENT: Head is normocephalic. NECK: Supple. HEART: Regular rate. LUNGS: Show diminished breath sounds at the base. ABDOMEN: Soft, nontender to palpation. No rebound or guarding. EXTREMITIES: Negative for clubbing, cyanosis, no edema. DERMATOLOGIC: No rashes. MUSCULOSKELETAL: No joint effusion. NEUROLOGIC: No change in exam. MEDICATIONS: Reviewed. LABORATORY DATA: Reviewed from 06/11/2018. ASSESSMENT AND PLAN: 1. Nonoliguric acute kidney injury with a baseline creatinine of 1.2 to 1.5 mg/dL. Etiology of acut e kidney injury is secondary to hemodynamics. Renal function stabilized, currently below baseline. Continue current treatment plan, supportive care, renally dose all medicines. The patient is to have IV contrast study. We would recommend IV hydration and Mucomyst prior to the procedure. The patien t is at moderate risk for contrast associated nephropathy. 2. Chronic kidney disease. Renal function stabilized. Continue current treatment plan. Continue s upportive care, renally dose all medicines. 3. Mineral bone disorder. Continue to monitor calcium and phosphorus levels. 4. Anemia with active GI bleeding. The patient has a small bowel series and repeat nuclear scan was reviewed. Continue to monitor. Follow up with GI. The patient is pending possible embolization. 5. Atrial fibrillation. Continue medical management. 6. Congestive heart failure. Continue current treatment plan. 7. Hypothyroidism. Continue Synthroid. 8. History of dementia. 9. Dyslipidemia. Continue statin therapy. Dictated By: CATRACHO PALENCIA DO NR/NTS Conf#: [id number] DID#: [id number] CC: LES SAUNDERS; CATRACHO PALENCIA DO;*EndCC*
[2018-06-11] MEDS ORDERED: MAGNESIUM SULFATE 1 GM/D5W 100 ML IVPB ONE (09:30)
--- NOTE | 2018-06-11 12:25 | PN ---
Date/Time of Note Date/Time of Note DATE: 06/11/18 TIME: 12:24 Assessment/Plan VTE Prophylaxis Risk score (from Ns)>0 risk: 7 SCD applied (from Ns): Yes Pharmacological prophylaxis: NA/contraindicated Pharm contraindication: bleeding Lines/Catheters [facility] PICC Line Central line still needed: Yes Urinary Cath still in place: No Assessment/Plan Hospital Course S: Patient had colonoscopy performed yesterday with no source of bleeding found in the colon. Awaiting likely IR embolization procedure later this afternoon. Presently getting PRBC transfusion. O: VS - see below PHYSICAL EXAMINATION: GENERAL: lying in bed, NAD HEENT: Pupils equal, round, reactive to light. Extraocular muscles intact. NECK: Supple. No thyromegaly. LUNGS: Clear to auscultation bilaterally. CARDIOVASCULAR: S1 and S2 heard. No rubs or gallops. ABDOMEN: Soft, nontender, nondistended. Normal bowel sounds. No rebound or guarding. MUSCULOSKELETAL: No lower extremity edema bilaterally. NEUROLOGIC: No focal deficits. GI bleeding scan June 09, 2018: IMPRESSION: Scintigraphically detectable gastrointestinal bleeding in the right lower abdominal quadrant, with the likely origin in the cecum. Colonoscopy June 10, 2018: Mcnair diverticulosis, no active bleeding noted ASSESSMENT AND PLAN: 82-year-old female coming in with history of paroxysmal atrial fibrillation on Eliquis, transcatheter aortic valve replacement, congestive heart failure, recent lower gastrointestinal bleeding 2 weeks ago, hospitalized for that, status post colonoscopy with internal hemorrhoids and diverticulosis, presents with continued lower gastrointestinal bleeding and anemia, hemoglobin 5.9. 1. Anemia, lower gastrointestinal bleeding-likely secondary to diverticular source. On presentation the hemoglobin 5.9. Has had 3 separate occurrences where she needed PRBC transfusions this admission, including getting another one now. - Continue to hold all anticoagulants including Eliquis (since admission, 05/28) -Despite positive tagged RBC scan results, colonoscopy, again, did not show any active bleeding. Follow-up GI team recommendations - Continue Protonix twice daily for now - IR procedure for embolization likely to be performed later today given the most recent colonoscopy findings from yesterday (ie no signs of active bleeding found on colonoscopy) -follow-up post procedure recommendations -Per discussion renal team, we will hydrate patient before IR procedure and shortly afterwards, and also give Mucomyst 600 mg p.o. twice daily times 2 days as well 2. Thrombocytopenia- Platelets initially were found to be in the 30-50 range earlier during her admission, now have been slowly trending up the last few days, today 122. -Monitor, follow-up further hematology oncology recommendations, they are not recommending DDAVP to be given at this time. 3. History of congestive heart failure. BNP 10,000 this admission. - Continue current cardiac medications cautiously - although we have been holding Entresto since admission secondary to renal insufficiency 4. High cholesterol. -Continue statin 5. History of transcatheter aortic valve replacement (TAVR). - Carefully continue current cardiac medications per cardiology recommendations 6. History of paroxysmal atrial fibrillation. Presently rate controlled - again, continue to monitor heart rate on telemetry. - Again, holding off on anticoagulation given her gastrointestinal bleeding presently right now. -Continue Coreg and follow further cardiology recommendations, particularly regarding when they will consider resuming Entresto 7. SHANEKA -slowly improving with intermittent doses of IV fluids cautiously given given her CHF history -Monitor for now, still holding Entresto as well 8. Gastrointestinal prophylaxis. Again, continue on PPI IV b.i.d. 9. Deep venous thrombosis prophylaxis. SCDs - avoid anticoagulants given GI bleeding Result Diagram: 06/11/18 0432 06/11/18 0432 Results 24hrs Laboratory Tests Test 06/10/18 20:26 06/11/18 04:32 Hemoglobin 8.5 L 7.3 L Hematocrit 25.4 L 22.7 L White Blood Count 5.5 Red Blood Count 2.28 L Mean Corpuscular Volume 99.6 Mean Corpuscular Hemoglobin 32.0 Mean Corpuscular Hemoglobin Concent 32.2 Red Cell Distribution Width 16.5 H Platelet Count 122 #L Mean Platelet Volume 9.7 Immature Granulocytes % 0.400 Neutrophils % 78.1 H Lymphocytes % 10.1 L Monocytes % 9.4 Eosinophils % 1.3 Basophils % 0.7 Nucleated Red Blood Cells % 0.0 Immature Granulocytes # 0.020 Neutrophils # 4.3 Lymphocytes # 0.6 L Monocytes # 0.5 Eosinophils # 0.1 Basophils # 0.0 Nucleated Red Blood Cells # 0.0 Sodium Level 144 Potassium Level 3.3 L Chloride Level 109 Carbon Dioxide Level 27 Anion Gap 8 Blood Urea Nitrogen 26 H Creatinine 1.00 Est Glomerular Filtrat Rate mL/min Glucose Level 86 Calcium Level 8.7 Phosphorus Level 4.0 Magnesium Level 1.9 Exam/Review of Systems Exam Vitals Vital Signs Date Temp Pulse Resp B/P (MAP) Pulse Ox O2 O2 Flow FiO2 Time Delivery Rate 06/11/18 98.1 61 18 119/58 97 Room Air 08:23 (78) 06/10/18 2.0 14:19 Intake and Output 06/10/18 06/10/18 06/11/18 1515:00 23:00 07:00 IntakeIntake Total 450 ml OutputOutput Total 5 ml 1 ml BalanceBalance 445 ml -1 ml Results Results 24hrs Laboratory Tests Test 06/10/18 20:26 06/11/18 04:32 Hemoglobin 8.5 L 7.3 L Hematocrit 25.4 L 22.7 L White Blood Count 5.5 Red Blood Count 2.28 L Mean Corpuscular Volume 99.6 Mean Corpuscular Hemoglobin 32.0 Mean Corpuscular Hemoglobin Concent 32.2 Red Cell Distribution Width 16.5 H Platelet Count 122 #L Mean Platelet Volume 9.7 Immature Granulocytes % 0.400 Neutrophils % 78.1 H Lymphocytes % 10.1 L Monocytes % 9.4 Eosinophils % 1.3 Basophils % 0.7 Nucleated Red Blood Cells % 0.0 Immature Granulocytes # 0.020 Neutrophils # 4.3 Lymphocytes # 0.6 L Monocytes # 0.5 Eosinophils # 0.1 Basophils # 0.0 Nucleated Red Blood Cells # 0.0 Sodium Level 144 Potassium Level 3.3 L Chloride Level 109 Carbon Dioxide Level 27 Anion Gap 8 Blood Urea Nitrogen 26 H Creatinine 1.00 Est Glomerular Filtrat Rate mL/min Glucose Level 86 Calcium Level 8.7 Phosphorus Level 4.0 Magnesium Level 1.9 Medications Medication Current Medications IV Flush (NS 3 ml) 3 ml PER PROTOCOL IV ; Start 05/28/18 at 19:00 Ondansetron HCl (Zofran Inj) 4 mg Q6H PRN IV NAUSEA/VOMITING; Start 05/28/18 at 19:00 Acetaminophen (Tylenol Tab) 650 mg Q6H PRN PO .PAIN 1-3 OR TEMP; Start 05/28/18 at 19:00 Acetaminophen/ Hydrocodone Bitart ([place] (5/325)) 1 tab Q6H PRN PO .MOD PAIN 4- 6; Start 05/28/18 at 19:00 Docusate Sodium (Colace) 100 mg Q12H PRN PO .CONSTIPATION Last administered on 06/07/18 06:57; Admin Dose 100 MG; Start 05/28/18 at 19:00 Magnesium Hydroxide (Milk Of Mag) 30 ml DAILY PRN PO .CONSTIPATION Last administered on 06/06/18 06:47; Admin Dose 30 ML; Start 05/28/18 at 19:00 Albuterol/ Ipratropium (Duoneb) 3 ml Q4H RESP THERAPY PRN HHN SHORTNESS OF BREATH; Start 05/28/18 at 19:00 Hydralazine HCl (Apresoline) 10 mg Q6H PRN IV ELEVATED BLOOD PRESSURE; Start 05/28/18 at 19:00 Nitroglycerin (Nitroglycerin (Sl Tab) 0.4 Mg) 1 tab Q5M PRN SL ANGINA; Start 05/28/18 at 19:00 Atorvastatin Calcium (Lipitor) 10 mg QHS PO Last administered on 06/10/18 21:37; Admin Dose 10 MG; Start 05/28/18 at 21:00 Levothyroxine Sodium (Synthroid) 100 mcg BEFORE BREAKFAST PO Last administered on 06/11/18 06:09; Admin Dose 100 MCG; Start 05/29/18 at 07:00 Calcium Carbonate (Oyster Shell Calcium) 1.25 gm BID PO Last administered on 06/11/18 09:02; Admin Dose 1.25 GM; Start 05/28/18 at 21:00 Cyanocobalamin (Vitamin B12) 1,000 mcg DAILY PO Last administered on 06/09/18 10:20; Admin Dose 1,000 MCG; Start 05/29/18 at 09:00; Status Hold Multivitamins/ Minerals (Theragran-M) 1 tab DAILY PO Last administered on 06/11/18 09:02; Admin Dose 1 TAB; Start 05/29/18 at 09:00 Pantoprazole (Protonix Tab) 40 mg BID@,18 PO Last administered on 06/11/18 06:09; Admin Dose 40 MG; Start 06/02/18 at 18:00 Polyethylene Glycol (Miralax) 17 gm DAILY PO Last administered on 06/09/18 09:35; Admin Dose 17 GM; Start 06/04/18 at 11:30 Carvedilol (Coreg) 6.25 mg BID PO Last administered on 06/11/18at 09:03; Admin Dose 6.25 MG; Start 06/09/18 at 21:00 Sodium Chloride 1,000 ml @ 100 mls/hr Q10H IV ; Start 06/11/18 at 12:30; Stop 06/11/18 at 22:00; Status UNV Acetylcysteine (Nac) 600 mg BID PO ; Start 06/11/18 at 12:30; Stop 06/13/18 at 09:00; Status UNV LES SAUNDERS Jun 11, 2018 12:25
[2018-06-11] MEDS ORDERED: SOD CHLORIDE 0.9% 1,000 ML IV SCH (12:30)
[2018-06-11] MEDS: ACETYLCYSTEINE 600 MG CAP PO SCH ×2 (14:01→21:11)
--- NOTE | 2018-06-11 14:33 | PN ---
Date/Time of Note Date/Time of Note DATE: 06/11/18 TIME: 14:31 Assessment/Plan VTE Prophylaxis Risk score (from Ns)>0 risk: 7 SCD applied (from Ns): Yes Pharmacological prophylaxis: other (scds) Lines/Catheters IV Catheter Type (from Nrs): PICC Line Central line still needed: Yes (meds) Urinary Cath still in place: No Assessment/Plan Hospital Course Assessment: GI bleeding/hematochezia/melena. Likely right colon diverticular source EGD 05/29/2018 distal esophagitis/gastritis no active bleeding Colonoscopy 05/11/2018 sun-diverticulosis with evidence of recent bleeding Colonoscopy 06/10/18- Sun-diverticulosis, no active bleeding Anemia Anticoagulation- on hold Dementia A-fib - CKD CHF Thrombocytopenia= Plan: SBFT- neg Plan for IR embolization today Patient seen in collaboration with Dr. Hendrickson/Barber Subjective: Course reviewed with nursing staff Patient interviewed and examined All labs, imaging and other results reviewed Discussed results of colonoscopy as well as small bowel follow-through Currently no complaint of nausea vomiting no bowel movement noted today. Discuss overall plan patient and son verbalized understanding. PHYSICAL EXAMINATION: GENERAL: Alert & oriented x 3, in no acute distress SKIN: No lesions CHEST: Inspection within normal limits. CARDIOVASCULAR: Heart: Regular rate and rhythm RESPIRATORY: Lungs clear to auscultation GASTROINTESTINAL AND LIVER: Abdomen: Soft, non tenderness, non-distended, no hernias, no masses, no organomegaly, no ascites, no guarding, no rebound tenderness, normoactive bowel sounds. Rectal: Deferred. GENITOURINARY: Female genitalia within normal limits. EXTREMITIES: No cyanosis, clubbing or edema. Result Diagram: 06/11/18 0432 06/11/18 0432 Results 24hrs Laboratory Tests Test 06/10/18 20:26 06/11/18 04:32 Hemoglobin 8.5 L 7.3 L Hematocrit 25.4 L 22.7 L White Blood Count 5.5 Red Blood Count 2.28 L Mean Corpuscular Volume 99.6 Mean Corpuscular Hemoglobin 32.0 Mean Corpuscular Hemoglobin Concent 32.2 Red Cell Distribution Width 16.5 H Platelet Count 122 #L Mean Platelet Volume 9.7 Immature Granulocytes % 0.400 Neutrophils % 78.1 H Lymphocytes % 10.1 L Monocytes % 9.4 Eosinophils % 1.3 Basophils % 0.7 Nucleated Red Blood Cells % 0.0 Immature Granulocytes # 0.020 Neutrophils # 4.3 Lymphocytes # 0.6 L Monocytes # 0.5 Eosinophils # 0.1 Basophils # 0.0 Nucleated Red Blood Cells # 0.0 Sodium Level 144 Potassium Level 3.3 L Chloride Level 109 Carbon Dioxide Level 27 Anion Gap 8 Blood Urea Nitrogen 26 H Creatinine 1.00 Est Glomerular Filtrat Rate mL/min Glucose Level 86 Calcium Level 8.7 Phosphorus Level 4.0 Magnesium Level 1.9 Exam/Review of Systems Exam Vitals Vital Signs Date Temp Pulse Resp B/P (MAP) Pulse Ox O2 O2 Flow FiO2 Time Delivery Rate 06/11/18 98.1 61 18 119/58 97 Room Air 08:23 (78) 06/10/18 2.0 14:19 Intake and Output 06/10/18 06/10/18 06/11/18 1414:59 22:59 06:59 IntakeIntake Total 450 ml OutputOutput Total 5 ml 1 ml BalanceBalance 445 ml -1 ml Results Results 24hrs Laboratory Tests Test 06/10/18 20:26 06/11/18 04:32 Hemoglobin 8.5 L 7.3 L Hematocrit 25.4 L 22.7 L White Blood Count 5.5 Red Blood Count 2.28 L Mean Corpuscular Volume 99.6 Mean Corpuscular Hemoglobin 32.0 Mean Corpuscular Hemoglobin Concent 32.2 Red Cell Distribution Width 16.5 H Platelet Count 122 #L Mean Platelet Volume 9.7 Immature Granulocytes % 0.400 Neutrophils % 78.1 H Lymphocytes % 10.1 L Monocytes % 9.4 Eosinophils % 1.3 Basophils % 0.7 Nucleated Red Blood Cells % 0.0 Immature Granulocytes # 0.020 Neutrophils # 4.3 Lymphocytes # 0.6 L Monocytes # 0.5 Eosinophils # 0.1 Basophils # 0.0 Nucleated Red Blood Cells # 0.0 Sodium Level 144 Potassium Level 3.3 L Chloride Level 109 Carbon Dioxide Level 27 Anion Gap 8 Blood Urea Nitrogen 26 H Creatinine 1.00 Est Glomerular Filtrat Rate mL/min Glucose Level 86 Calcium Level 8.7 Phosphorus Level 4.0 Magnesium Level 1.9 Medications Medication Current Medications IV Flush (NS 3 ml) 3 ml PER PROTOCOL IV ; Start 05/28/18 at 19:00 Ondansetron HCl (Zofran Inj) 4 mg Q6H PRN IV NAUSEA/VOMITING; Start 05/28/18 at 19:00 Acetaminophen (Tylenol Tab) 650 mg Q6H PRN PO .PAIN 1-3 OR TEMP; Start 05/28/18 at 19:00 Acetaminophen/ Hydrocodone Bitart ([place] (5/325)) 1 tab Q6H PRN PO .MOD PAIN 4- 6; Start 05/28/18 at 19:00 Docusate Sodium (Colace) 100 mg Q12H PRN PO .CONSTIPATION Last administered on 06/07/18 06:57; Admin Dose 100 MG; Start 05/28/18 at 19:00 Magnesium Hydroxide (Milk Of Mag) 30 ml DAILY PRN PO .CONSTIPATION Last administered on 06/06/18 06:47; Admin Dose 30 ML; Start 05/28/18 at 19:00 Albuterol/ Ipratropium (Duoneb) 3 ml Q4H RESP THERAPY PRN HHN SHORTNESS OF BREATH; Start 05/28/18 at 19:00 Hydralazine HCl (Apresoline) 10 mg Q6H PRN IV ELEVATED BLOOD PRESSURE; Start 05/28/18 at 19:00 Nitroglycerin (Nitroglycerin (Sl Tab) 0.4 Mg) 1 tab Q5M PRN SL ANGINA; Start 05/28/18 at 19:00 Atorvastatin Calcium (Lipitor) 10 mg QHS PO Last administered on 06/10/18 21:37; Admin Dose 10 MG; Start 05/28/18 at 21:00 Levothyroxine Sodium (Synthroid) 100 mcg BEFORE BREAKFAST PO Last administered on 06/11/18 06:09; Admin Dose 100 MCG; Start 05/29/18 at 07:00 Calcium Carbonate (Oyster Shell Calcium) 1.25 gm BID PO Last administered on 06/11/18 09:02; Admin Dose 1.25 GM; Start 05/28/18 at 21:00 Cyanocobalamin (Vitamin B12) 1,000 mcg DAILY PO Last administered on 06/09/18 10:20; Admin Dose 1,000 MCG; Start 05/29/18 at 09:00; Status Hold Multivitamins/ Minerals (Theragran-M) 1 tab DAILY PO Last administered on 06/11/18 09:02; Admin Dose 1 TAB; Start 05/29/18 at 09:00 Pantoprazole (Protonix Tab) 40 mg BID@06,18 PO Last administered on 06/11/18at 06:09; Admin Dose 40 MG; Start 06/02/18 at 18:00 Polyethylene Glycol (Miralax) 17 gm DAILY PO Last administered on 06/09/18at 09:35; Admin Dose 17 GM; Start 06/04/18 at 11:30 Carvedilol (Coreg) 6.25 mg BID PO Last administered on 06/11/18at 09:03; Admin Dose 6.25 MG; Start 06/09/18 at 21:00 Sodium Chloride 1,000 ml @ 100 mls/hr Q10H IV Last administered on 06/11/18at 12:38; Admin Dose 100 MLS/HR; Start 06/11/18 at 12:30; Stop 06/11/18 at 22:00 Acetylcysteine (Nac) 600 mg BID PO Last administered on 06/11/18at 14:01; Admin Dose 600 MG; Start 06/11/18 at 13:30; Stop 06/13/18 at 13:29 JERROD MORGAN Jun 11, 2018 14:33
[2018-06-11] MEDS ORDERED: MIDAZOLAM 1 MG/ML 2 ML INJ ONE (17:34)
[2018-06-11] MEDS ORDERED: LIDOCAINE 1% (MDV) 20 ML INJ ONE (17:34)
[2018-06-11] MEDS ORDERED: IODIXANOL LOCM 100 ML BTL ONE (17:34)
[2018-06-11] MEDS ORDERED: FENTAnyl 50 MCG/ML VIAL ONE (17:34)
[2018-06-11] MEDS ORDERED: HEPARIN 1000 UNITS/NS (A-LINE) 1,000 ML ONE (18:39)
[2018-06-11] MEDS: ATORVASTATIN 10 MG TAB PO SCH (21:10)
[2018-06-12 02:37] VITALS: BP 117/75; RESP 17
[2018-06-12] MEDS: PANTOPRAZOLE (EC) 40 MG TAB PO SCH ×2 (06:08→17:57)
[2018-06-12 07:21] VITALS: BP 137/65; PULSE 62; RESP 18
[2018-06-12] MEDS: LEVOTHYROXINE 100 MCG TAB PO SCH (07:34)
[2018-06-12] MEDS: POLYETHYLENE GLYCOL 17 GM PACKET PO SCH (09:00)
--- NOTE | 2018-06-12 09:12 | PN ---
DATE: 06/12/2018 SUBJECTIVE: The patient is stable. The patient had angiogram yesterday with no active bleeding note d. OBJECTIVE: VITAL SIGNS: Blood pressure 137/65, respirations 18, pulse 62, temperature 97.6. HEENT: Head is normocephalic. NECK: Supple. HEART: Regular rate. LUNGS: Show diminished breath sounds at the base. ABDOMEN: Soft, nontender to palpation without rebound or guarding. EXTREMITIES: Negative for clubbing, cyanosis, no edema. DERMATOLOGIC: No rashes. MUSCULOSKELETAL: No joint effusion. NEUROLOGIC: No change in exam. MEDICATIONS: Reviewed. LABORATORY DATA: From 06/08/2018 show BUN 24, creatinine 1.1. ASSESSMENT AND PLAN: 1. Nonoliguric acute kidney injury with a baseline creatinine of 1.2 to 1.5 m/dL. Etiology of acute kidney injury is secondary to hemodynamics. Renal function stabilized. Continue to monitor closely for any signs of contrast-associated nephropathy. Urinary output has been adequate. 2. Chronic kidney disease. Renal function stabilized. Continue current treatment plan. Continue s upportive care, renally dose all medicines. 3. Mineral bone disorder. Monitor calcium and phosphorus levels. 4. Anemia with active GI bleeding. Patient is status post angiogram which was negative. Questionab le ovarian lesion which is abutting to cecum, potentially could be ovarian cancer invading into the c ecum. At this point, will continue to monitor. Follow up with GI and primary team. 6. Atrial fibrillation. Continue medical management. 7. Congestive heart failure. The patient is currently compensated. 8. Hypothyroidism. Continue Synthroid. 9. History of dementia. 10. Dyslipidemia. Continue statin therapy. Dictated By: CATRACHO LILLY/SHAYNA Conf#: [id number] DID#: [id number]
[2018-06-12] MEDS: CALCIUM CARBONATE 1.25 GM TAB PO SCH ×2 (09:33→22:00)
[2018-06-12] MEDS: ACETYLCYSTEINE 600 MG CAP PO SCH ×2 (09:33→22:01)
[2018-06-12] MEDS: MULTIVITAMINS/MINERALS TAB PO SCH (09:33)
[2018-06-12] MEDS: BALSAM PERU/CASTOR OIL 60 GM TUBE TOP SCH ×2 (09:34→22:01)
--- NOTE | 2018-06-12 10:35 | CONS ---
Consult Date/Type/Reason Admit Date/Time May 28, 2018 at 19:26 Initial Consult Date 05/29/18 Type of Consultation: cv Requesting Provider: SHIRA ANTOINE MD Date/Time of Note DATE: 06/12/18 TIME: 10:29 Subjective Interventional cardiology follow-up progress note Subjective: Discussed with staff and telemetry was reviewed. Patient is off tele now Discussed with the patient's son at bedside and multiple questions answered. She has had BRBPR per family report She denies any chest pain or pressure to me has any palpitation to me. s/p colo again on 06/10 Objective: General: Elderly female no acute distress HEENT: NC/AT. pupils are equal. round. NECK: . no stridor. CV: RRR. systolic murmur; no gallop or rubs. PULM: no wheezing or rhonchi. GI: SOFT, NT, ND, no rebound or guarding Extremity: trace B/L LE edema. no clubbing. neuro: awake and alert, Psych: calm and pleasant rectal: deferred Abdominal/pelvic CT done May 30, 2018 shows: No evidence of urolithiasis, obstructive uropathy or diverticulitis. Diverticulosis. Nonvisualization appendix. No bowel mass or obstruction is seen. Cholecystectomy with presumed physiologic intra and extrahepatic bile duct dilatation. Correlation with serum bilirubin levels could be performed if clinically indicated. Aortic valve replacement. Cardiomegaly. Small pericardial effusion. Vascular calcifications. Senescent degenerative changes spine. Tiny right pleural effusion. Objective Vitals Vital Signs Date Temp Pulse Resp B/P (MAP) Pulse Ox O2 O2 Flow FiO2 Time Delivery Rate 06/12/18 97.7 62 18 137/65 90 07:21 (89) 06/12/18 Room Air 02:37 06/10/18 2.0 14:19 Intake and Output 06/11/18 06/11/18 06/12/18 1515:00 23:00 07:00 IntakeIntake Total 1050 ml 1601 ml BalanceBalance 1050 ml 1601 ml Results/Medications Result Diagram: 06/12/18 0448 06/12/18 0448 Results 24 hrs Laboratory Tests Test 06/11/18 14:30 06/11/18 22:19 06/12/18 04:48 06/12/18 07:29 Hemoglobin 8.4 L 8.2 L 8.0 L Hematocrit 25.6 L 24.9 L 24.2 L White Blood Count 7.2 # Red Blood Count 2.47 L Mean Corpuscular 98.0 Volume Mean Corpuscular 32.4 Hemoglobin Mean Corpuscular 33.1 Hemoglobin Concen t Red Cell 17.3 H Distribution Width Platelet Count 107 L Mean Platelet 9.5 Volume Immature 0.300 Granulocytes % Neutrophils % 78.8 H Lymphocytes % 8.4 L Monocytes % 10.6 Eosinophils % 1.5 Basophils % 0.4 Nucleated Red 0.0 Blood Cells % Immature 0.020 Granulocytes # Neutrophils # 5.7 Lymphocytes # 0.6 L Monocytes # 0.8 Eosinophils # 0.1 Basophils # 0.0 Nucleated Red 0.0 Blood Cells # Sodium Level 137 Potassium Level 4.0 Chloride Level 105 Carbon Dioxide 24 Level Anion Gap 8 Blood Urea 24 H Nitrogen Creatinine 1.01 H Est Glomerular Filtrat Rate mL/min Glucose Level 84 Calcium Level 8.2 L Phosphorus Level 3.3 Magnesium Level 2.0 Lab Scanned BLOOD TRANSFUSIO Report N Home Meds Reported Medications Cyanocobalamin (Vitamin B-12) (Vitamin B-12) 1,000 Mcg Tab.subl, 1000 MCG SL DAILY 05/28/18 Multivitamin/Iron/Folic Acid (Centrum Adults Tablet) 1 Each Tablet, 1 EACH PO DAILY, TAB 05/28/18 Calcium Carbonate* (Calcium Carbonate*) 600 MG Ca Tab, 600 MG PO BID, TAB 05/28/18 Omeprazole* (Omeprazole*) 40 Mg Capsule.dr, 40 MG PO DAILY, #30 CAP 05/28/18 Atorvastatin Calcium (Atorvastatin Calcium) 10 Mg Tablet, 10 MG PO QHS, #30 TAB 05/28/18 Apixaban* (Eliquis*) 2.5 Mg Tablet, 2.5 MG PO DAILY, TAB 05/28/18 Sacubitril/Valsartan (Entresto 49 mg-51 mg Tablet) 1 Each Tablet, 1 EACH PO DAILY, TAB 05/28/18 Carvedilol* (Carvedilol*) 6.25 Mg Tablet, 6.25 MG PO DAILY, #60 TAB 05/28/18 Furosemide* (Furosemide*) 40 Mg Tablet, 40 MG PO DAILY, TAB 05/28/18 Spironolactone* (Aldactone*) 25 Mg Tablet, 25 MG PO DAILY, #30 TAB 05/28/18 Levothyroxine Sodium* (Levothyroxine Sodium*) 100 Mcg Tablet, 100 MCG PO BEFORE BREAKFAST, #30 TAB 05/28/18 Medications Current Medications IV Flush (NS 3 ml) 3 ml PER PROTOCOL IV ; Start 05/28/18 at 19:00 Ondansetron HCl (Zofran Inj) 4 mg Q6H PRN IV NAUSEA/VOMITING; Start 05/28/18 at 19:00 Acetaminophen (Tylenol Tab) 650 mg Q6H PRN PO .PAIN 1-3 OR TEMP; Start 05/28/18 at 19:00 Acetaminophen/ Hydrocodone Bitart ([place] (5/325)) 1 tab Q6H PRN PO .MOD PAIN 4- 6; Start 05/28/18 at 19:00 Docusate Sodium (Colace) 100 mg Q12H PRN PO .CONSTIPATION Last administered on 06/07/18at 06:57; Admin Dose 100 MG; Start 05/28/18 at 19:00 Magnesium Hydroxide (Milk Of Mag) 30 ml DAILY PRN PO .CONSTIPATION Last administered on 06/06/18at 06:47; Admin Dose 30 ML; Start 05/28/18 at 19:00 Albuterol/ Ipratropium (Duoneb) 3 ml Q4H RESP THERAPY PRN HHN SHORTNESS OF BREATH; Start 05/28/18 at 19:00 Hydralazine HCl (Apresoline) 10 mg Q6H PRN IV ELEVATED BLOOD PRESSURE; Start 05/28/18 at 19:00 Nitroglycerin (Nitroglycerin (Sl Tab) 0.4 Mg) 1 tab Q5M PRN SL ANGINA; Start 05/28/18 at 19:00 Atorvastatin Calcium (Lipitor) 10 mg QHS PO Last administered on 06/11/18at 21:10; Admin Dose 10 MG; Start 05/28/18 at 21:00 Levothyroxine Sodium (Synthroid) 100 mcg BEFORE BREAKFAST PO Last administered on 06/12/18at 07:34; Admin Dose 100 MCG; Start 05/29/18 at 07:00 Calcium Carbonate (Oyster Shell Calcium) 1.25 gm BID PO Last administered on 06/12/18 09:33; Admin Dose 1.25 GM; Start 05/28/18 at 21:00 Cyanocobalamin (Vitamin B12) 1,000 mcg DAILY PO Last administered on 06/09/18 10:20; Admin Dose 1,000 MCG; Start 05/29/18 at 09:00; Status Hold Multivitamins/ Minerals (Theragran-M) 1 tab DAILY PO Last administered on 06/12/18 09:33; Admin Dose 1 TAB; Start 05/29/18 at 09:00 Pantoprazole (Protonix Tab) 40 mg BID@06,18 PO Last administered on 06/12/18 06:08; Admin Dose 40 MG; Start 06/02/18 at 18:00 Polyethylene Glycol (Miralax) 17 gm DAILY PO Last administered on 06/09/18 09:35; Admin Dose 17 GM; Start 06/04/18 at 11:30 Carvedilol (Coreg) 6.25 mg BID PO Last administered on 06/12/18 09:33; Admin Dose 6.25 MG; Start 06/09/18 at 21:00 Acetylcysteine (Nac) 600 mg BID PO Last administered on 06/12/18 09:33; Admin Dose 600 MG; Start 06/11/18 at 13:30; Stop 06/13/18 at 13:29 Assessment/Plan Hospital Course (Demo Recall) 1. Recurrent lower GI bleed on anticoagulation: Currently off Eliquis 2. 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 Severe cardiomyopathy 4. Sick sinus syndrome with permanent pacemaker 5. History of aortic stenosis status post transcutaneous aortic valve replacement 6 permissive hypertension 7. Chronic kidney disease 8. Anemia secondary to GI bleeding 9. anemia: s/p transfusions Recommendations: Will cont coreg and inc as tolerated Transfusion as needed follow-up with GI recommendations regarding bleeding and anemia will resume entresto avoid fluid overload Thank you for his referral. We will follow-up with you KAYLAH BAXTER MD [facility] KAYLAH BAXTER MD Jun 12, 2018 10:35
--- NOTE | 2018-06-12 12:24 | PN ---
Date/Time of Note Date/Time of Note DATE: 06/12/18 TIME: 12:01 Assessment/Plan VTE Prophylaxis Risk score (from Ns)>0 risk: 7 SCD applied (from Ns): Yes Pharmacological prophylaxis: NA/contraindicated Pharm contraindication: bleeding Lines/Catheters [facility] (from [facility]): PICC Line Central line still needed: Yes Urinary Cath still in place: No Assessment/Plan Hospital Course S: Patient had IR embolization procedure performed yesterday and blood transfusion as well. No source of bleeding found during the IR procedure apparently. Patient still with dark stools today. O: VS - see below PHYSICAL EXAMINATION: GENERAL: lying in bed, NAD HEENT: Pupils equal, round, reactive to light. Extraocular muscles intact. NECK: Supple. No thyromegaly. LUNGS: Clear to auscultation bilaterally. CARDIOVASCULAR: S1 and S2 heard. No rubs or gallops. ABDOMEN: Soft, nontender, nondistended. Normal bowel sounds. No rebound or guarding. MUSCULOSKELETAL: No lower extremity edema bilaterally. NEUROLOGIC: No focal deficits. GI bleeding scan June 09, 2018: IMPRESSION: Scintigraphically detectable gastrointestinal bleeding in the right lower abdominal quadrant, with the likely origin in the cecum. Colonoscopy June 10, 2018: [place] diverticulosis, no active bleeding noted ASSESSMENT AND PLAN: 82-year-old female coming in with history of paroxysmal atrial fibrillation on Eliquis, transcatheter aortic valve replacement, congestive heart failure, recent lower gastrointestinal bleeding 2 weeks ago, hospitalized for that, status post colonoscopy with internal hemorrhoids and diverticulosis, presents with continued lower gastrointestinal bleeding and anemia, hemoglobin 5.9. 1. Anemia, lower gastrointestinal bleeding-likely secondary to diverticular source. On presentation the hemoglobin 5.9. Has had 3 separate occurrences where she needed PRBC transfusions this admission, including getting another one now. - Continue to hold all anticoagulants including Eliquis (since admission, 05/28) -Despite positive tagged RBC scan results, colonoscopy, again, did not show any active bleeding. Follow-up GI team recommendations -they are recommending to go ahead with CT enterography which we will order for tomorrow - Continue Protonix twice daily for now - IR procedure embolization performed yesterday and did not find active bleeding.-follow-up post procedure recommendations -Per discussion with the renal and hematology oncology teams, will also order for transvaginal and pelvic ultrasounds to further evaluate possible right adnexal mass possibly growing into the cecum. Continue Mucomyst 600 mg p.o. tw ice daily times 2 days as well 2. Thrombocytopenia- Platelets initially were found to be in the 30-50 range earlier during her admission, had been trending up the last few days but today is down to 107 -Monitor, follow-up further hematology oncology recommendations, they are not recommending DDAVP to be given at this time. 3. History of congestive heart failure. BNP 10,000 this admission. - Continue current cardiac medications cautiously -Has been restarted on Entresto as well 4. High cholesterol. -Continue statin 5. History of transcatheter aortic valve replacement (TAVR). - Carefully continue current cardiac medications per cardiology recommendations 6. History of paroxysmal atrial fibrillation. Presently rate controlled - again, continue to monitor heart rate on telemetry. - Again, holding off on anticoagulation given her gastrointestinal bleeding presently right now. -Continue Coreg and follow further cardiology recommendations 7. SHANEKA -slowly improving with intermittent doses of IV fluids cautiously given given her CHF history -Monitor for now, still holding Entresto as well 8. Gastrointestinal prophylaxis. Again, continue on PPI IV b.i.d. 9. Deep venous thrombosis prophylaxis. SCDs - avoid anticoagulants given GI bleeding Result Diagram: 06/12/188 06/12/188 Results 24hrs Laboratory Tests Test 06/11/18 14:30 06/11/18 22:19 06/12/18 04:48 06/12/18 07:29 Hemoglobin 8.4 L 8.2 L 8.0 L Hematocrit 25.6 L 24.9 L 24.2 L White Blood Count 7.2 # Red Blood Count 2.47 L Mean Corpuscular 98.0 Volume Mean Corpuscular 32.4 Hemoglobin Mean Corpuscular 33.1 Hemoglobin Concen t Red Cell 17.3 H Distribution Width Platelet Count 107 L Mean Platelet 9.5 Volume Immature 0.300 Granulocytes % Neutrophils % 78.8 H Lymphocytes % 8.4 L Monocytes % 10.6 Eosinophils % 1.5 Basophils % 0.4 Nucleated Red 0.0 Blood Cells % Immature 0.020 Granulocytes # Neutrophils # 5.7 Lymphocytes # 0.6 L Monocytes # 0.8 Eosinophils # 0.1 Basophils # 0.0 Nucleated Red 0.0 Blood Cells # Sodium Level 137 Potassium Level 4.0 Chloride Level 105 Carbon Dioxide 24 Level Anion Gap 8 Blood Urea 24 H Nitrogen Creatinine 1.01 H Est Glomerular Filtrat Rate mL/min Glucose Level 84 Calcium Level 8.2 L Phosphorus Level 3.3 Magnesium Level 2.0 Lab Scanned BLOOD TRANSFUSIO Report N Exam/Review of Systems Exam Vitals Vital Signs Date Temp Pulse Resp B/P (MAP) Pulse Ox O2 O2 Flow FiO2 Time Delivery Rate 06/12/18 97.7 62 18 137/65 90 07:21 (89) 06/12/18 Room Air 02:37 06/10/18 2.0 14:19 Intake and Output 06/11/18 06/11/18 06/12/18 1515:00 23:00 07:00 IntakeIntake Total 1050 ml 1601 ml BalanceBalance 1050 ml 1601 ml Results Results 24hrs Laboratory Tests Test 06/11/18 14:30 06/11/18 22:19 06/12/18 04:48 06/12/18 07:29 Hemoglobin 8.4 L 8.2 L 8.0 L Hematocrit 25.6 L 24.9 L 24.2 L White Blood Count 7.2 # Red Blood Count 2.47 L Mean Corpuscular 98.0 Volume Mean Corpuscular 32.4 Hemoglobin Mean Corpuscular 33.1 Hemoglobin Concen t Red Cell 17.3 H Distribution Width Platelet Count 107 L Mean Platelet 9.5 Volume Immature 0.300 Granulocytes % Neutrophils % 78.8 H Lymphocytes % 8.4 L Monocytes % 10.6 Eosinophils % 1.5 Basophils % 0.4 Nucleated Red 0.0 Blood Cells % Immature 0.020 Granulocytes # Neutrophils # 5.7 Lymphocytes # 0.6 L Monocytes # 0.8 Eosinophils # 0.1 Basophils # 0.0 Nucleated Red 0.0 Blood Cells # Sodium Level 137 Potassium Level 4.0 Chloride Level 105 Carbon Dioxide 24 Level Anion Gap 8 Blood Urea 24 H Nitrogen Creatinine 1.01 H Est Glomerular Filtrat Rate mL/min Glucose Level 84 Calcium Level 8.2 L Phosphorus Level 3.3 Magnesium Level 2.0 Lab Scanned BLOOD TRANSFUSIO Report N Medications Medication Current Medications IV Flush (NS 3 ml) 3 ml PER PROTOCOL IV ; Start 05/28/18 at 19:00 Ondansetron HCl (Zofran Inj) 4 mg Q6H PRN IV NAUSEA/VOMITING; Start 05/28/18 at 19:00 Acetaminophen (Tylenol Tab) 650 mg Q6H PRN PO .PAIN 1-3 OR TEMP; Start 05/28/18 at 19:00 Acetaminophen/ Hydrocodone Bitart ([place] (5/325)) 1 tab Q6H PRN PO .MOD PAIN 4- 6; Start 05/28/18 at 19:00 Docusate Sodium (Colace) 100 mg Q12H PRN PO .CONSTIPATION Last administered on 06/07/18 06:57; Admin Dose 100 MG; Start 05/28/18 at 19:00 Magnesium Hydroxide (Milk Of Mag) 30 ml DAILY PRN PO .CONSTIPATION Last administered on 06/06/18 06:47; Admin Dose 30 ML; Start 05/28/18 at 19:00 Albuterol/ Ipratropium (Duoneb) 3 ml Q4H RESP THERAPY PRN HHN SHORTNESS OF BREATH; Start 05/28/18 at 19:00 Hydralazine HCl (Apresoline) 10 mg Q6H PRN IV ELEVATED BLOOD PRESSURE; Start 05/28/18 at 19:00 Nitroglycerin (Nitroglycerin (Sl Tab) 0.4 Mg) 1 tab Q5M PRN SL ANGINA; Start 05/28/18 at 19:00 Atorvastatin Calcium (Lipitor) 10 mg QHS PO Last administered on 06/11/18 21:10; Admin Dose 10 MG; Start 05/28/18 at 21:00 Levothyroxine Sodium (Synthroid) 100 mcg BEFORE BREAKFAST PO Last administered on 06/12/18 07:34; Admin Dose 100 MCG; Start 05/29/18 at 07:00 Calcium Carbonate (Oyster Shell Calcium) 1.25 gm BID PO Last administered on 06/12/18 09:33; Admin Dose 1.25 GM; Start 05/28/18 at 21:00 Cyanocobalamin (Vitamin B12) 1,000 mcg DAILY PO Last administered on 06/09/18 10:20; Admin Dose 1,000 MCG; Start 05/29/18 at 09:00; Status Hold Multivitamins/ Minerals (Theragran-M) 1 tab DAILY PO Last administered on 06/12/18 09:33; Admin Dose 1 TAB; Start 05/29/18 at 09:00 Pantoprazole (Protonix Tab) 40 mg BID@06,18 PO Last administered on 06/12/18at 06:08; Admin Dose 40 MG; Start 06/02/18 at 18:00 Polyethylene Glycol (Miralax) 17 gm DAILY PO Last administered on 06/09/18at 09:35; Admin Dose 17 GM; Start 06/04/18 at 11:30 Carvedilol (Coreg) 6.25 mg BID PO Last administered on 06/12/18at 09:33; Admin Dose 6.25 MG; Start 06/09/18 at 21:00 Acetylcysteine (Nac) 600 mg BID PO Last administered on 06/12/18at 09:33; Admin Dose 600 MG; Start 06/11/18 at 13:30; Stop 06/13/18 at 13:29 Sacubitril/ Valsartan (Entresto 24 Mg-26 Mg) 1 tab BID PO ; Start 06/12/18 at 21:00 LES SAUNDERS Jun 12, 2018 12:11
[2018-06-12] MEDS ORDERED: SOD CHLORIDE 0.45% 1,000 ML IV SCH (12:30)
--- NOTE | 2018-06-12 13:09 | PN ---
Date/Time of Note Date/Time of Note DATE: 06/12/18 TIME: 13:01 Assessment/Plan VTE Prophylaxis Risk score (from Ns)>0 risk: 7 SCD applied (from [facility] [place]): Yes SCD contraindicated: low risk/ambulating Pharmacological prophylaxis: NA/contraindicated Pharm contraindication: bleeding Lines/Catheters [facility] (from [facility]): PICC Line Central line still needed: Yes Urinary Cath still in place: No Assessment/Plan Assessment/Plan Assessment: GI bleeding/hematochezia/melena. Likely right colon diverticular source EGD 05/29/2018 distal esophagitis/gastritis no active bleeding Colonoscopy 05/11/2018 sun-diverticulosis with evidence of recent bleeding Colonoscopy 06/10/18- Sun-diverticulosis, no active bleeding Anemia Anticoagulation- on hold Dementia A-fib - CKD CHF Thrombocytopenia= Plan: SBFT- neg IR embolization -no bleeding Plan for CT enterography tomorrow if cleared by the parole supervisor Monitor H&H Transfuse for hemoglobin less than 7.5 Patient seen in collaboration with Dr. Hendrickson/Barber Subjective: Course reviewed with nursing staff Patient interviewed and examined All labs, imaging and other results reviewed Patient is doing well. Tolerating diet well without abdominal pain, nausea vomiting. Patient had one maroon colored stool today. Hemoglobin is 8.0. No further blood transfusions. Discussed labs and the plan for CT enterography with the son at the bedside. Continue observation. PHYSICAL EXAMINATION: GENERAL: Alert & oriented x 3, in no acute distress SKIN: No lesions CHEST: Inspection within normal limits. CARDIOVASCULAR: Heart: Regular rate and rhythm RESPIRATORY: Lungs clear to auscultation GASTROINTESTINAL AND LIVER: Abdomen: Soft, non tenderness, non-distended, no hernias, no masses, no organomegaly, no ascites, no guarding, no rebound tenderness, normoactive bowel sounds. Rectal: Deferred. GENITOURINARY: Female genitalia within normal limits. EXTREMITIES: No cyanosis, clubbing or edema. Result Diagram: 06/12/18 0448 06/12/18447 Results 24hrs Laboratory Tests Test 06/11/18 14:30 06/11/18 22:19 06/12/18 04:48 06/12/18 07:29 Hemoglobin 8.4 L 8.2 L 8.0 L Hematocrit 25.6 L 24.9 L 24.2 L White Blood Count 7.2 # Red Blood Count 2.47 L Mean Corpuscular 98.0 Volume Mean Corpuscular 32.4 Hemoglobin Mean Corpuscular 33.1 Hemoglobin Concen t Red Cell 17.3 H Distribution Width Platelet Count 107 L Mean Platelet 9.5 Volume Immature 0.300 Granulocytes % Neutrophils % 78.8 H Lymphocytes % 8.4 L Monocytes % 10.6 Eosinophils % 1.5 Basophils % 0.4 Nucleated Red 0.0 Blood Cells % Immature 0.020 Granulocytes # Neutrophils # 5.7 Lymphocytes # 0.6 L Monocytes # 0.8 Eosinophils # 0.1 Basophils # 0.0 Nucleated Red 0.0 Blood Cells # Sodium Level 137 Potassium Level 4.0 Chloride Level 105 Carbon Dioxide 24 Level Anion Gap 8 Blood Urea 24 H Nitrogen Creatinine 1.01 H Est Glomerular Filtrat Rate mL/min Glucose Level 84 Calcium Level 8.2 L Phosphorus Level 3.3 Magnesium Level 2.0 Lab Scanned BLOOD TRANSFUSIO Report N CC: JSAPREET MCCULLOUGH ; Exam/Review of Systems Exam Vitals Vital Signs Date Temp Pulse Resp B/P (MAP) Pulse Ox O2 O2 Flow FiO2 Time Delivery Rate 06/12/18 97.7 62 18 137/65 90 07:21 (89) 06/12/18 Room Air 02:37 06/10/18 2.0 14:19 Intake and Output 06/11/18 06/11/18 06/12/18 1515:00 23:00 07:00 IntakeIntake Total 1050 ml 1601 ml BalanceBalance 1050 ml 1601 ml Results Results 24hrs Laboratory Tests Test 06/11/18 14:30 06/11/18 22:19 06/12/18 04:48 06/12/18 07:29 Hemoglobin 8.4 L 8.2 L 8.0 L Hematocrit 25.6 L 24.9 L 24.2 L White Blood Count 7.2 # Red Blood Count 2.47 L Mean Corpuscular 98.0 Volume Mean Corpuscular 32.4 Hemoglobin Mean Corpuscular 33.1 Hemoglobin Concen t Red Cell 17.3 H Distribution Width Platelet Count 107 L Mean Platelet 9.5 Volume Immature 0.300 Granulocytes % Neutrophils % 78.8 H Lymphocytes % 8.4 L Monocytes % 10.6 Eosinophils % 1.5 Basophils % 0.4 Nucleated Red 0.0 Blood Cells % Immature 0.020 Granulocytes # Neutrophils # 5.7 Lymphocytes # 0.6 L Monocytes # 0.8 Eosinophils # 0.1 Basophils # 0.0 Nucleated Red 0.0 Blood Cells # Sodium Level 137 Potassium Level 4.0 Chloride Level 105 Carbon Dioxide 24 Level Anion Gap 8 Blood Urea 24 H Nitrogen Creatinine 1.01 H Est Glomerular Filtrat Rate mL/min Glucose Level 84 Calcium Level 8.2 L Phosphorus Level 3.3 Magnesium Level 2.0 Lab Scanned BLOOD TRANSFUSIO Report N Medications Medication Current Medications IV Flush (NS 3 ml) 3 ml PER PROTOCOL IV ; Start 05/28/18 at 19:00 Ondansetron HCl (Zofran Inj) 4 mg Q6H PRN IV NAUSEA/VOMITING; Start 05/28/18 at 19:00 Acetaminophen (Tylenol Tab) 650 mg Q6H PRN PO .PAIN 1-3 OR TEMP; Start 05/28/18 at 19:00 Acetaminophen/ Hydrocodone Bitart ([place] (5/325)) 1 tab Q6H PRN PO .MOD PAIN 4- 6; Start 05/28/18 at 19:00 Docusate Sodium (Colace) 100 mg Q12H PRN PO .CONSTIPATION Last administered on 06/07/18 06:57; Admin Dose 100 MG; Start 05/28/18 at 19:00 Magnesium Hydroxide (Milk Of Mag) 30 ml DAILY PRN PO .CONSTIPATION Last administered on 06/06/18 06:47; Admin Dose 30 ML; Start 05/28/18 at 19:00 Albuterol/ Ipratropium (Duoneb) 3 ml Q4H RESP THERAPY PRN HHN SHORTNESS OF BREATH; Start 05/28/18 at 19:00 Hydralazine HCl (Apresoline) 10 mg Q6H PRN IV ELEVATED BLOOD PRESSURE; Start 05/28/18 at 19:00 Nitroglycerin (Nitroglycerin (Sl Tab) 0.4 Mg) 1 tab Q5M PRN SL ANGINA; Start 05/28/18 at 19:00 Atorvastatin Calcium (Lipitor) 10 mg QHS PO Last administered on 06/11/18 21:10; Admin Dose 10 MG; Start 05/28/18 at 21:00 Levothyroxine Sodium (Synthroid) 100 mcg BEFORE BREAKFAST PO Last administered on 06/12/18 07:34; Admin Dose 100 MCG; Start 05/29/18 at 07:00 Calcium Carbonate (Oyster Shell Calcium) 1.25 gm BID PO Last administered on 06/12/18 09:33; Admin Dose 1.25 GM; Start 05/28/18 at 21:00 Cyanocobalamin (Vitamin B12) 1,000 mcg DAILY PO Last administered on 06/09/18 10:20; Admin Dose 1,000 MCG; Start 05/29/18 at 09:00; Status Hold Multivitamins/ Minerals (Theragran-M) 1 tab DAILY PO Last administered on 06/12/18 09:33; Admin Dose 1 TAB; Start 05/29/18 at 09:00 Pantoprazole (Protonix Tab) 40 mg BID@06,18 PO Last administered on 06/12/18 06:08; Admin Dose 40 MG; Start 06/02/18 at 18:00 Polyethylene Glycol (Miralax) 17 gm DAILY PO Last administered on 06/09/18 09:35; Admin Dose 17 GM; Start 06/04/18 at 11:30 Carvedilol (Coreg) 6.25 mg BID PO Last administered on 06/12/18 09:33; Admin Dose 6.25 MG; Start 06/09/18 at 21:00 Acetylcysteine (Nac) 600 mg BID PO Last administered on 06/12/18 09:33; Admin Dose 600 MG; Start 06/11/18 at 13:30; Stop 06/13/18 at 13:29 Sacubitril/ Valsartan (Entresto 24 Mg-26 Mg) 1 tab BID PO ; Start 06/12/18 at 21:00 Sodium Chloride 1,000 ml @ 70 mls/hr [id number] IV Last administered on 06/12/18 12:53; Admin Dose 70 MLS/HR; Start 06/12/18 at 12:30; Stop 06/12/18 at 22:30 RICKEY HARTMANN NP Jun 12, 2018 13:09
[2018-06-12 13:53] VITALS: BP 132/62; PULSE 63; RESP 18
[2018-06-12] MEDS: ACETAMINOPHEN 325 MG TAB PO PRN (18:23)
[2018-06-12 20:07] VITALS: BP 113/63; PULSE 66; RESP 20
[2018-06-12] MEDS: SACUBITRIL/VALSARTAN (24mg-26mg) TABLET PO SCH (22:00)
[2018-06-12] MEDS: ATORVASTATIN 10 MG TAB PO SCH (22:01)
[2018-06-13] VITALS (9 sets, daily range): BP systolic 101–135; BP diastolic 59–67; PULSE 60–68; RESP 17–18
[2018-06-13] MEDS: PANTOPRAZOLE (EC) 40 MG TAB PO SCH ×2 (06:00→20:56)
[2018-06-13] MEDS: LEVOTHYROXINE 100 MCG TAB PO SCH (06:18)
--- NOTE | 2018-06-13 08:42 | PN ---
Date/Time of Note Date/Time of Note DATE: 06/13/18 TIME: 08:40 Assessment/Plan VTE Prophylaxis Risk score (from Nsg)>0 risk: 7 SCD applied (from Nsg): Yes Pharmacological prophylaxis: other Lines/Catheters IV Catheter Type (from Nrsg): PICC Line Central line still needed: Yes Urinary Cath still in place: No Reason Cath still needed: urinary retention Assessment/Plan Hospital Course renal follow up SUBJECTIVE: The patient is stable. The patient had angiogram 2 days ago with no active bleeding noted. no significant event overnight d/w Dr Landis OBJECTIVE: HEENT: Head is normocephalic. NECK: Supple. HEART: Regular rate. LUNGS: Show diminished breath sounds at the base. ABDOMEN: Soft, nontender to palpation without rebound or guarding. EXTREMITIES: Negative for clubbing, cyanosis, no edema. DERMATOLOGIC: No rashes. MUSCULOSKELETAL: No joint effusion. NEUROLOGIC: No change in exam. MEDICATIONS: Reviewed. ASSESSMENT AND PLAN: 1. Nonoliguric acute kidney injury with a baseline creatinine of 1.2 to 1.5 m/dL. Etiology of acute kidney injury is secondary to hemodynamics. Renal function stabilized. Continue to monitor closely for any signs of contrast- associated nephropathy. Urinary output has been adequate. 2. Chronic kidney disease. Renal function stabilized. Continue current treatment plan. Continue supportive care, renally dose all medicines. 3. Mineral bone disorder. Monitor calcium and phosphorus levels. 4. Anemia with active GI bleeding. Patient is status post angiogram which was negative. Questionable ovarian lesion which is abutting to cecum, potentially could be ovarian cancer invading into the cecum. At this point, will continue to monitor. Follow up with GI and primary team. 6. Atrial fibrillation. Continue medical management. 7. Congestive heart failure. The patient is currently compensated. 8. Hypothyroidism. Continue Synthroid. 9. History of dementia. 10. Dyslipidemia. Continue statin therapy. Result Diagram: 06/12/18 0448 06/13/18 0429 Results 24hrs Laboratory Tests Test 06/13/18 04:28 06/13/18 04:29 White Blood Count Pending Red Blood Count Pending Hemoglobin Pending Hematocrit Pending Mean Corpuscular Volume Pending Mean Corpuscular Hemoglobin Pending Mean Corpuscular Hemoglobin Concent Pending Red Cell Distribution Width Pending Platelet Count Pending Mean Platelet Volume Pending Sodium Level 131 L Potassium Level 4.0 Chloride Level 101 Carbon Dioxide Level 23 Anion Gap 7 Blood Urea Nitrogen 23 H Creatinine 1.11 H Est Glomerular Filtrat Rate mL/min Glucose Level 86 Calcium Level 8.2 L Phosphorus Level 3.3 Magnesium Level 1.9 Exam/Review of Systems Exam Vitals Vital Signs Date Temp Pulse Resp B/P (MAP) Pulse Ox O2 O2 Flow FiO2 Time Delivery Rate 06/13/18 98.2 60 18 135/67 93 07:50 (89) 06/12/18 Room Air 02:37 06/10/18 2.0 14:19 Intake and Output 06/12/18 06/12/18 06/13/18 1515:00 23:00 07:00 IntakeIntake Total 1380 ml 300 ml BalanceBalance 1380 ml 300 ml Results Results 24hrs Laboratory Tests Test 06/13/18 04:28 06/13/18 04:29 White Blood Count Pending Red Blood Count Pending Hemoglobin Pending Hematocrit Pending Mean Corpuscular Volume Pending Mean Corpuscular Hemoglobin Pending Mean Corpuscular Hemoglobin Concent Pending Red Cell Distribution Width Pending Platelet Count Pending Mean Platelet Volume Pending Sodium Level 131 L Potassium Level 4.0 Chloride Level 101 Carbon Dioxide Level 23 Anion Gap 7 Blood Urea Nitrogen 23 H Creatinine 1.11 H Est Glomerular Filtrat Rate mL/min Glucose Level 86 Calcium Level 8.2 L Phosphorus Level 3.3 Magnesium Level 1.9 Medications Medication Current Medications IV Flush (NS 3 ml) 3 ml PER PROTOCOL IV ; Start 05/28/18 at 19:00 Ondansetron HCl (Zofran Inj) 4 mg Q6H PRN IV NAUSEA/VOMITING; Start 05/28/18 at 19:00 Acetaminophen (Tylenol Tab) 650 mg Q6H PRN PO .PAIN 1-3 OR TEMP Last administered on 06/12/18at 18:23; Admin Dose 650 MG; Start 05/28/18 at 19:00 Acetaminophen/ Hydrocodone Bitart ([place] (5/325)) 1 tab Q6H PRN PO .MOD PAIN 4- 6; Start 05/28/18 at 19:00 Docusate Sodium (Colace) 100 mg Q12H PRN PO .CONSTIPATION Last administered on 06/07/18at 06:57; Admin Dose 100 MG; Start 05/28/18 at 19:00 Magnesium Hydroxide (Milk Of Mag) 30 ml DAILY PRN PO .CONSTIPATION Last adm inistered on 06/06/18 06:47; Admin Dose 30 ML; Start 05/28/18 at 19:00 Albuterol/ Ipratropium (Duoneb) 3 ml Q4H RESP THERAPY PRN HHN SHORTNESS OF BREATH; Start 05/28/18 at 19:00 Hydralazine HCl (Apresoline) 10 mg Q6H PRN IV ELEVATED BLOOD PRESSURE; Start 05/28/18 at 19:00 Nitroglycerin (Nitroglycerin (Sl Tab) 0.4 Mg) 1 tab Q5M PRN SL ANGINA; Start 05/28/18 at 19:00 Atorvastatin Calcium (Lipitor) 10 mg QHS PO Last administered on 06/12/18 22:01; Admin Dose 10 MG; Start 05/28/18 at 21:00 Levothyroxine Sodium (Synthroid) 100 mcg BEFORE BREAKFAST PO Last administered on 06/12/18 07:34; Admin Dose 100 MCG; Start 05/29/18 at 07:00 Calcium Carbonate (Oyster Shell Calcium) 1.25 gm BID PO Last administered on 06/12/18 22:00; Admin Dose 1.25 GM; Start 05/28/18 at 21:00 Cyanocobalamin (Vitamin B12) 1,000 mcg DAILY PO Last administered on 06/09/18 10:20; Admin Dose 1,000 MCG; Start 05/29/18 at 09:00; Status Hold Multivitamins/ Minerals (Theragran-M) 1 tab DAILY PO Last administered on 06/12/18 09:33; Admin Dose 1 TAB; Start 05/29/18 at 09:00 Pantoprazole (Protonix Tab) 40 mg BID@06,18 PO Last administered on 06/12/18 17:57; Admin Dose 40 MG; Start 06/02/18 at 18:00 Polyethylene Glycol (Miralax) 17 gm DAILY PO Last administered on 06/09/18 09:35; Admin Dose 17 GM; Start 06/04/18 at 11:30 Carvedilol (Coreg) 6.25 mg BID PO Last administered on 06/12/18 22:16; Admin Dose 6.25 MG; Start 06/09/18 at 21:00 Acetylcysteine (Nac) 600 mg BID PO Last administered on 06/12/18at 22:01; Admin Dose 600 MG; Start 06/11/18 at 13:30; Stop 06/13/18 at 13:29 Sacubitril/ Valsartan (Entresto 24 Mg-26 Mg) 1 tab BID PO Last administered on 06/12/18at 22:00; Admin Dose 1 TAB; Start 06/12/18 at 21:00 RJ DEVINE DO Jun 13, 2018 08:42
[2018-06-13] MEDS: POLYETHYLENE GLYCOL 17 GM PACKET PO SCH (09:00)
[2018-06-13] MEDS ORDERED: SOD CHLORIDE 0.45% 1,000 ML IV SCH (09:30)
[2018-06-13] MEDS: ACETYLCYSTEINE 600 MG CAP PO SCH (09:58)
[2018-06-13] MEDS: MULTIVITAMINS/MINERALS TAB PO SCH (09:59)
[2018-06-13] MEDS: CALCIUM CARBONATE 1.25 GM TAB PO SCH ×2 (09:59→20:57)
[2018-06-13] MEDS: SACUBITRIL/VALSARTAN (24mg-26mg) TABLET PO SCH (10:00)
[2018-06-13] MEDS: BALSAM PERU/CASTOR OIL 60 GM TUBE TOP SCH ×2 (10:00→20:56)
[2018-06-13] MEDS ORDERED: SOD CHLORIDE 0.9% 250 ML IV* ONE (10:52)
[2018-06-13] MEDS ORDERED: IOHEXOL 350MG/ML 50 ML BTL ONE (11:30)
[2018-06-13] MEDS ORDERED: BARIUM SULFATE 0.1% 450 ML BTL (VOLUMEN) PO ONE ×3 (11:30)
[2018-06-13] MEDS ORDERED: IOHEXOL 100 ML ONE (11:30)
[2018-06-13] MEDS ORDERED: SOD CHLORIDE 0.9% 100 ML ONE (11:30)
[2018-06-13] MEDS ORDERED: DESMOPRESSIN 20 MCG in SOD CHLORIDE 0.9% 50 ML IVPB ONE (12:00)
[2018-06-13] MEDS ORDERED: GLUCAGON 1 MG INJ ONE (13:20)
[2018-06-13] MEDS ORDERED: GLUCAGON 1 MG INJ IV STA (13:30)
--- NOTE | 2018-06-13 14:52 | PN ---
Date/Time of Note Date/Time of Note DATE: 06/13/18 TIME: 14:47 Assessment/Plan VTE Prophylaxis Risk score (from Ns)>0 risk: 6 SCD applied (from Ns): Yes Pharmacological prophylaxis: NA/contraindicated Pharm contraindication: bleeding Lines/Catheters IV Catheter Type (from Nrsg): PICC Line Central line still needed: Yes Urinary Cath still in place: No Assessment/Plan Hospital Course S: Patient had CT enterography performed this AM. Still having signs of lower GI bleeding, ordered for 2 units PRBC today. O: VS - see below PHYSICAL EXAMINATION: GENERAL: lying in bed, NAD HEENT: Pupils equal, round, reactive to light. Extraocular muscles intact. NECK: Supple. No thyromegaly. LUNGS: Clear to auscultation bilaterally. CARDIOVASCULAR: S1 and S2 heard. No rubs or gallops. ABDOMEN: Soft, nontender, nondistended. Normal bowel sounds. No rebound or guarding. MUSCULOSKELETAL: No lower extremity edema bilaterally, some mild upper extremity swelling bilaterally in the arms. PICC site in right upper extremity appears clean dry and intact otherwise NEUROLOGIC: No focal deficits. GI bleeding scan June 09, 2018: IMPRESSION: Scintigraphically detectable gastrointestinal bleeding in the right lower abdominal quadrant, with the likely origin in the cecum. Colonoscopy June 10, 2018: Mcnair diverticulosis, no active bleeding noted ASSESSMENT AND PLAN: 82-year-old female coming in with history of paroxysmal atrial fibrillation on Eliquis, transcatheter aortic valve replacement, congestive heart failure, recent lower gastrointestinal bleeding 2 weeks ago, hospitalized for that, status post colonoscopy with internal hemorrhoids and diverticulosis, presents with continued lower gastrointestinal bleeding and anem ia, hemoglobin 5.9. 1. Anemia, lower gastrointestinal bleeding-likely secondary to diverticular so urce. On presentation the hemoglobin 5.9. Has had 4 separate occurrences where she needed PRBC transfusions this admission, and again we will get another transfusion now. - Continue to hold all anticoagulants including Eliquis (since admission, 05/28), going to get 2 more units PRBC transfusion today. -Despite positive tagged RBC scan results, colonoscopy, again, did not show any active bleeding. Follow-up GI team recommendations -follow-up the results of CT enterography performed earlier today - Continue Protonix twice daily for now - IR procedure embolization performed 2 days ago and did not find active bleeding.-follow-up post procedure recommendations -We will discuss with hematology team about giving DDAVP and if this will have any benefit for patient regarding her bleeding and slightly lower platelets today. - Continue Mucomyst 600 mg p.o. twice daily times 2 days as well, last day today. 2. Thrombocytopenia- Platelets initially were found to be in the 30-50 range ear lier during her admission, had been trending up the last few days but today is down to 102 -Monitor, follow-up further hematology oncology recommendations, again we will discuss with hematology team about giving DDAVP and if this will have any benefit for patient regarding her bleeding and slightly lower platelets today. 3. History of congestive heart failure. BNP 10,000 this admission. - Continue current cardiac medications cautiously -Holding Entresto for at least 24 hours today given slight bump in creatinine elevation today. 4. High cholesterol. -Continue statin 5. History of transcatheter aortic valve replacement (TAVR). - Carefully continue current cardiac medications per cardiology recommendations 6. History of paroxysmal atrial fibrillation. Presently rate controlled - again, continue to monitor heart rate on telemetry. - Again, holding off on anticoagulation given her gastrointestinal bleeding presently right now. -Continue Coreg and follow further cardiology recommendations 7. SHANEKA -slowly improving with intermittent doses of IV fluids cautiously given given her CHF history -Monitor for now, 8. Gastrointestinal prophylaxis. Again, continue on PPI IV b.i.d. 9. Deep venous thrombosis prophylaxis. SCDs - avoid anticoagulants given GI bleeding Result Diagram: 06/13/18 0428 06/13/18 0429 Results 24hrs Laboratory Tests Test 06/13/18 04:28 06/13/18 04:29 White Blood Count 7.2 Red Blood Count 2.28 L Hemoglobin 7.4 L Hematocrit 22.1 L Mean Corpuscular Volume 96.9 Mean Corpuscular Hemoglobin 32.5 Mean Corpuscular Hemoglobin Concent 33.5 Red Cell Distribution Width 16.8 H Platelet Count 102 L Mean Platelet Volume 9.7 Immature Granulocytes % 0.400 Neutrophils % 80.4 H Lymphocytes % 8.1 L Monocytes % 8.7 Eosinophils % 1.8 Basophils % 0.6 Nucleated Red Blood Cells % 0.0 Immature Granulocytes # 0.030 Neutrophils # 5.8 Lymphocytes # 0.6 L Monocytes # 0.6 Eosinophils # 0.1 Basophils # 0.0 Nucleated Red Blood Cells # 0.0 Sodium Level 131 L Potassium Level 4.0 Chloride Level 101 Carbon Dioxide Level 23 Anion Gap 7 Blood Urea Nitrogen 23 H Creatinine 1.11 H Est Glomerular Filtrat Rate mL/min Glucose Level 86 Calcium Level 8.2 L Phosphorus Level 3.3 Magnesium Level 1.9 Exam/Review of Systems Exam Vitals Vital Signs Date Temp Pulse Resp B/P (MAP) Pulse Ox O2 O2 Flow FiO2 Time Delivery Rate 06/13/18 97.2 60 18 101/59 87 13:49 (73) 06/12/18 Room Air 02:37 06/10/18 2.0 14:19 Intake and Output 06/12/18 06/12/18 06/13/18 1515:00 23:00 07:00 IntakeIntake Total 1380 ml 300 ml BalanceBalance 1380 ml 300 ml Results Results 24hrs Laboratory Tests Test 06/13/18 04:28 06/13/18 04:29 White Blood Count 7.2 Red Blood Count 2.28 L Hemoglobin 7.4 L Hematocrit 22.1 L Mean Corpuscular Volume 96.9 Mean Corpuscular Hemoglobin 32.5 Mean Corpuscular Hemoglobin Concent 33.5 Red Cell Distribution Width 16.8 H Platelet Count 102 L Mean Platelet Volume 9.7 Immature Granulocytes % 0.400 Neutrophils % 80.4 H Lymphocytes % 8.1 L Monocytes % 8.7 Eosinophils % 1.8 Basophils % 0.6 Nucleated Red Blood Cells % 0.0 Immature Granulocytes # 0.030 Neutrophils # 5.8 Lymphocytes # 0.6 L Monocytes # 0.6 Eosinophils # 0.1 Basophils # 0.0 Nucleated Red Blood Cells # 0.0 Sodium Level 131 L Potassium Level 4.0 Chloride Level 101 Carbon Dioxide Level 23 Anion Gap 7 Blood Urea Nitrogen 23 H Creatinine 1.11 H Est Glomerular Filtrat Rate mL/min Glucose Level 86 Calcium Level 8.2 L Phosphorus Level 3.3 Magnesium Level 1.9 Medications Medication Current Medications IV Flush (NS 3 ml) 3 ml PER PROTOCOL IV ; Start 05/28/18 at 19:00 Ondansetron HCl (Zofran Inj) 4 mg Q6H PRN IV NAUSEA/VOMITING; Start 05/28/18 at 19:00 Acetaminophen (Tylenol Tab) 650 mg Q6H PRN PO .PAIN 1-3 OR TEMP Last administered on 06/12/18at 18:23; Admin Dose 650 MG; Start 05/28/18 at 19:00 Acetaminophen/ Hydrocodone Bitart ([place] (5/325)) 1 tab Q6H PRN PO .MOD PAIN 4- 6; Start 05/28/18 at 19:00 Docusate Sodium (Colace) 100 mg Q12H PRN PO .CONSTIPATION Last administered on 06/07/18 06:57; Admin Dose 100 MG; Start 05/28/18 at 19:00 Magnesium Hydroxide (Milk Of Mag) 30 ml DAILY PRN PO .CONSTIPATION Last administered on 06/06/18 06:47; Admin Dose 30 ML; Start 05/28/18 at 19:00 Albuterol/ Ipratropium (Duoneb) 3 ml Q4H RESP THERAPY PRN HHN SHORTNESS OF BREATH; Start 05/28/18 at 19:00 Hydralazine HCl (Apresoline) 10 mg Q6H PRN IV ELEVATED BLOOD PRESSURE; Start 05/28/18 at 19:00 Nitroglycerin (Nitroglycerin (Sl Tab) 0.4 Mg) 1 tab Q5M PRN SL ANGINA; Start 05/28/18 at 19:00 Atorvastatin Calcium (Lipitor) 10 mg QHS PO Last administered on 06/12/18 22:01; Admin Dose 10 MG; Start 05/28/18 at 21:00 Levothyroxine Sodium (Synthroid) 100 mcg BEFORE BREAKFAST PO Last administered on 06/12/18 07:34; Admin Dose 100 MCG; Start 05/29/18 at 07:00 Calcium Carbonate (Oyster Shell Calcium) 1.25 gm BID PO Last administered on 06/13/18 09:59; Admin Dose 1.25 GM; Start 05/28/18 at 21:00 Cyanocobalamin (Vitamin B12) 1,000 mcg DAILY PO Last administered on 06/09/18 10:20; Admin Dose 1,000 MCG; Start 05/29/18 at 09:00; Status Hold Multivitamins/ Minerals (Theragran-M) 1 tab DAILY PO Last administered on 06/13/18 09:59; Admin Dose 1 TAB; Start 05/29/18 at 09:00 Pantoprazole (Protonix Tab) 40 mg BID@18 PO Last administered on 06/12/18 17:57; Admin Dose 40 MG; Start 06/02/18 at 18:00 Polyethylene Glycol (Miralax) 17 gm DAILY PO Last administered on 06/09/18at 09:35; Admin Dose 17 GM; Start 06/04/18 at 11:30 Carvedilol (Coreg) 6.25 mg BID PO Last administered on 06/13/18at 10:00; Admin Dose 6.25 MG; Start 06/09/18 at 21:00 Sacubitril/ Valsartan (Entresto 24 Mg-26 Mg) 1 tab BID PO Last administered on 06/13/18at 10:00; Admin Dose 1 TAB; Start 06/12/18 at 21:00; Status Hold Sodium Chloride 1,000 ml @ 70 mls/hr [id number] IV ; Start 06/13/18 at 09:30; Stop 06/13/18 at 19:00 LES SAUNDERS Jun 13, 2018 14:52
--- NOTE | 2018-06-13 15:24 | CONS ---
Consult Date/Type/Reason Admit Date/Time May 28, 2018 at 19:26 Initial Consult Date 05/29/18 Type of Consultation: cv Requesting Provider: SHIRA ANTOINE MD Date/Time of Note DATE: 06/13/18 TIME: 15:23 Subjective Interventional cardiology follow-up progress note Subjective: Discussed with staff and telemetry was reviewed. Patient is off tele now Discussed with the patient's family at bedside pt states she has been confused today She denies any chest pain or pressure to me has any palpitation to me. s/p colo again on 06/10 Objective: General: Elderly female no acute distress HEENT: NC/AT. pupils are equal. round. NECK: . no stridor. CV: RRR. systolic murmur; no gallop or rubs. PULM: no wheezing or rhonchi. GI: SOFT, NT, ND, no rebound or guarding Extremity: trace B/L LE edema. no clubbing. neuro: awake and alert, Psych: calm and pleasant rectal: deferred Abdominal/pelvic CT done May 30, 2018 shows: No evidence of urolithiasis, obstructive uropathy or diverticulitis. Diverticulosis. Nonvisualization appendix. No bowel mass or obstruction is seen. Cholecystectomy with presumed physiologic intra and extrahepatic bile duct dilatation. Correlation with serum bilirubin levels could be performed if clinically indicated. Aortic valve replacement. Cardiomegaly. Small pericardial effusion. Vascular calcifications. Senescent degenerative changes spine. Tiny right pleural effusion. Objective Vitals Vital Signs Date Temp Pulse Resp B/P (MAP) Pulse Ox O2 O2 Flow FiO2 Time Delivery Rate 06/13/18 97.2 60 18 101/59 87 13:49 (73) 06/12/18 Room Air 02:37 06/10/18 2.0 14:19 Intake and Output 06/12/18 06/12/18 06/13/18 1515:00 23:00 07:00 IntakeIntake Total 1380 ml 300 ml BalanceBalance 1380 ml 300 ml Results/Medications Result Diagram: 06/13/18 0428 06/13/18 0429 Results 24 hrs Laboratory Tests Test 06/13/18 04:28 06/13/18 04:29 White Blood Count 7.2 Red Blood Count 2.28 L Hemoglobin 7.4 L Hematocrit 22.1 L Mean Corpuscular Volume 96.9 Mean Corpuscular Hemoglobin 32.5 Mean Corpuscular Hemoglobin Concent 33.5 Red Cell Distribution Width 16.8 H Platelet Count 102 L Mean Platelet Volume 9.7 Immature Granulocytes % 0.400 Neutrophils % 80.4 H Lymphocytes % 8.1 L Monocytes % 8.7 Eosinophils % 1.8 Basophils % 0.6 Nucleated Red Blood Cells % 0.0 Immature Granulocytes # 0.030 Neutrophils # 5.8 Lymphocytes # 0.6 L Monocytes # 0.6 Eosinophils # 0.1 Basophils # 0.0 Nucleated Red Blood Cells # 0.0 Sodium Level 131 L Potassium Level 4.0 Chloride Level 101 Carbon Dioxide Level 23 Anion Gap 7 Blood Urea Nitrogen 23 H Creatinine 1.11 H Est Glomerular Filtrat Rate mL/min Glucose Level 86 Calcium Level 8.2 L Phosphorus Level 3.3 Magnesium Level 1.9 Home Meds Reported Medications Cyanocobalamin (Vitamin B-12) (Vitamin B-12) 1,000 Mcg Tab.subl, 1000 MCG SL LAURA LY 05/28/18 Multivitamin/Iron/Folic Acid (Centrum Adults Tablet) 1 Each Tablet, 1 EACH PO DAILY, TAB 05/28/18 Calcium Carbonate* (Calcium Carbonate*) 600 MG Ca Tab, 600 MG PO BID, TAB 05/28/18 Omeprazole* (Omeprazole*) 40 Mg Capsule.dr, 40 MG PO DAILY, #30 CAP 05/28/18 Atorvastatin Calcium (Atorvastatin Calcium) 10 Mg Tablet, 10 MG PO QHS, #30 TAB 05/28/18 Apixaban* (Eliquis*) 2.5 Mg Tablet, 2.5 MG PO DAILY, TAB 05/28/18 Sacubitril/Valsartan (Entresto 49 mg-51 mg Tablet) 1 Each Tablet, 1 EACH PO DAILY, TAB 05/28/18 Carvedilol* (Carvedilol*) 6.25 Mg Tablet, 6.25 MG PO DAILY, #60 TAB 05/28/18 Furosemide* (Furosemide*) 40 Mg Tablet, 40 MG PO DAILY, TAB 05/28/18 Spironolactone* (Aldactone*) 25 Mg Tablet, 25 MG PO DAILY, #30 TAB 05/28/18 Levothyroxine Sodium* (Levothyroxine Sodium*) 100 Mcg Tablet, 100 MCG PO BEFORE BREAKFAST, #30 TAB 05/28/18 Medications Current Medications IV Flush (NS 3 ml) 3 ml PER PROTOCOL IV ; Start 05/28/18 at 19:00 Ondansetron HCl (Zofran Inj) 4 mg Q6H PRN IV NAUSEA/VOMITING; Start 05/28/18 at 19:00 Acetaminophen (Tylenol Tab) 650 mg Q6H PRN PO .PAIN 1-3 OR TEMP Last administered on 06/12/18 18:23; Admin Dose 650 MG; Start 05/28/18 at 19:00 Acetaminophen/ Hydrocodone Bitart ([place] (5/325)) 1 tab Q6H PRN PO .MOD PAIN 4- 6; Start 05/28/18 at 19:00 Docusate Sodium (Colace) 100 mg Q12H PRN PO .CONSTIPATION Last administered on 06/07/18 06:57; Admin Dose 100 MG; Start 05/28/18 at 19:00 Magnesium Hydroxide (Milk Of Mag) 30 ml DAILY PRN PO .CONSTIPATION Last administered on 06/06/18 06:47; Admin Dose 30 ML; Start 05/28/18 at 19:00 Albuterol/ Ipratropium (Duoneb) 3 ml Q4H RESP THERAPY PRN HHN SHORTNESS OF BREATH; Start 05/28/18 at 19:00 Hydralazine HCl (Apresoline) 10 mg Q6H PRN IV ELEVATED BLOOD PRESSURE; Start 05/28/18 at 19:00 Nitroglycerin (Nitroglycerin (Sl Tab) 0.4 Mg) 1 tab Q5M PRN SL ANGINA; Start 05/28/18 at 19:00 Atorvastatin Calcium (Lipitor) 10 mg QHS PO Last administered on 06/12/18 22:01; Admin Dose 10 MG; Start 05/28/18 at 21:00 Levothyroxine Sodium (Synthroid) 100 mcg BEFORE BREAKFAST PO Last administered on 06/12/18 07:34; Admin Dose 100 MCG; Start 05/29/18 at 07:00 Calcium Carbonate (Oyster Shell Calcium) 1.25 gm BID PO Last administered on 06/13/18 09:59; Admin Dose 1.25 GM; Start 05/28/18 at 21:00 Cyanocobalamin (Vitamin B12) 1,000 mcg DAILY PO Last administered on 06/09/18 10:20; Admin Dose 1,000 MCG; Start 05/29/18 at 09:00; Status Hold Multivitamins/ Minerals (Theragran-M) 1 tab DAILY PO Last administered on 06/13/18 09:59; Admin Dose 1 TAB; Start 05/29/18 at 09:00 Pantoprazole (Protonix Tab) 40 mg BID@06,18 PO Last administered on 06/12/18at 1 7:57; Admin Dose 40 MG; Start 06/02/18 at 18:00 Polyethylene Glycol (Miralax) 17 gm DAILY PO Last administered on 06/09/18at 09:35; Admin Dose 17 GM; Start 06/04/18 at 11:30 Carvedilol (Coreg) 6.25 mg BID PO Last administered on 06/13/18 10:00; Admin Dose 6.25 MG; Start 06/09/18 at 21:00 Sacubitril/ Valsartan (Entresto 24 Mg-26 Mg) 1 tab BID PO Last administered on 06/13/18at 10:00; Admin Dose 1 TAB; Start 06/12/18 at 21:00; Status Hold Sodium Chloride 1,000 ml @ 70 mls/hr [id number] IV ; Start 06/13/18 at 09:30; Stop 06/13/18 at 19:00 Assessment/Plan Hospital Course (Demo Recall) 1. Recurrent lower GI bleed on anticoagulation: Currently off Eliquis 2. 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 Severe cardiomyopathy 4. Sick sinus syndrome with permanent pacemaker 5. History of aortic stenosis status post transcutaneous aortic valve replacement 6 permissive hypertension 7. Chronic kidney disease 8. Anemia secondary to GI bleeding 9. anemia: s/p transfusions 10. Pericardial effusion seen on CT scan Recommendations: Will cont coreg and inc as tolerated Transfusion as needed follow-up with GI recommendations regarding bleeding and anemia will resume entresto avoid fluid overload We will check echocardiogram Thank you for his referral. We will follow-up with you KAYLAH BAXTER MD [facility] KALYAH BAXTER MD Jun 13, 2018 15:24
--- NOTE | 2018-06-13 17:35 | PN ---
Date/Time of Note Date/Time of Note DATE: 06/13/18 TIME: 17:15 Assessment/Plan VTE Prophylaxis Risk score (from Ns)>0 risk: 6 SCD applied (from Ns): Yes Pharmacological prophylaxis: NA/contraindicated Pharm contraindication: bleeding Lines/Catheters IV Catheter Type (from [facility]): PICC Line Central line still needed: Yes Urinary Cath still in place: No Assessment/Plan Assessment/Plan Assessment: GI bleeding/hematochezia/melena. Likely right colon diverticular source EGD 05/29/2018 distal esophagitis/gastritis no active bleeding Colonoscopy 05/11/2018 sun-diverticulosis with evidence of recent bleeding Colonoscopy 06/10/18- Sun-diverticulosis, no active bleeding Anemia Anticoagulation- on hold Dementia A-fib CKD CHF Thrombocytopenia Plan: IR embolization -no bleeding found CT enterography with concern for persistent bleeding from cecum and ascending colon. Continue to monitor, no more procedures at this time. Monitor H&H - stable overall, hgb 8.0 -> 7.4, despite this she is getting 2 more units of blood Continue supportive measures. Patient seen in collaboration with Dr. Hendrickson/Barber Subjective: Course reviewed with nursing staff Patient interviewed and examined All labs, imaging and other results reviewed Patient is comfortable. Family at bedside. Reports ongoing dark stools and bright red blood per rectum. She is getting 2 more units of PRBC today for a hgb of 7.4. PHYSICAL EXAMINATION: GENERAL: Alert & oriented x 3, in no acute distress SKIN: No lesions CHEST: Inspection within normal limits. CARDIOVASCULAR: Heart: Regular rate and rhythm RESPIRATORY: Lungs clear to auscultation GASTROINTESTINAL AND LIVER: Abdomen: Soft, non tenderness, non-distended, no hernias, no masses, no organomegaly, no ascites, no guarding, no rebound tenderness, normoactive bowel sounds. Rectal: Deferred. GENITOURINARY: Female genitalia within normal limits. EXTREMITIES: No cyanosis, clubbing or edema. Result Diagram: 06/13/18 0428 06/13/18 0429 Results 24hrs Laboratory Tests Test 06/13/18 04:28 06/13/18 04:29 06/13/18 15:37 White Blood Count 7.2 Red Blood Count 2.28 L Hemoglobin 7.4 L Hematocrit 22.1 L Mean Corpuscular Volume 96.9 Mean Corpuscular Hemoglobin 32.5 Mean Corpuscular Hemoglobin Concent 33.5 Red Cell Distribution Width 16.8 H Platelet Count 102 L Mean Platelet Volume 9.7 Immature Granulocytes % 0.400 Neutrophils % 80.4 H Lymphocytes % 8.1 L Monocytes % 8.7 Eosinophils % 1.8 Basophils % 0.6 Nucleated Red Blood Cells % 0.0 Immature Granulocytes # 0.030 Neutrophils # 5.8 Lymphocytes # 0.6 L Monocytes # 0.6 Eosinophils # 0.1 Basophils # 0.0 Nucleated Red Blood Cells # 0.0 Sodium Level 131 L Potassium Level 4.0 Chloride Level 101 Carbon Dioxide Level 23 Anion Gap 7 Blood Urea Nitrogen 23 H Creatinine 1.11 H Est Glomerular Filtrat Rate mL/min Glucose Level 86 Calcium Level 8.2 L Phosphorus Level 3.3 Magnesium Level 1.9 Platelet Func Collagen/Epinephrine 160 Platelet Function Collagen/ADP CC: ; Exam/Review of Systems Exam Vitals Vital Signs Date Temp Pulse Resp B/P (MAP) Pulse Ox O2 O2 Flow FiO2 Time Delivery Rate 06/13/18 97.2 60 18 101/59 87 13:49 (73) 06/12/18 Room Air 02:37 06/10/18 2.0 14:19 Intake and Output 06/12/18 06/12/18 06/13/18 1515:00 23:00 07:00 IntakeIntake Total 1380 ml 300 ml BalanceBalance 1380 ml 300 ml Results Results 24hrs Laboratory Tests Test 06/13/18 04:28 06/13/18 04:29 06/13/18 15:37 White Blood Count 7.2 Red Blood Count 2.28 L Hemoglobin 7.4 L Hematocrit 22.1 L Mean Corpuscular Volume 96.9 Mean Corpuscular Hemoglobin 32.5 Mean Corpuscular Hemoglobin Concent 33.5 Red Cell Distribution Width 16.8 H Platelet Count 102 L Mean Platelet Volume 9.7 Immature Granulocytes % 0.400 Neutrophils % 80.4 H Lymphocytes % 8.1 L Monocytes % 8.7 Eosinophils % 1.8 Basophils % 0.6 Nucleated Red Blood Cells % 0.0 Immature Granulocytes # 0.030 Neutrophils # 5.8 Lymphocytes # 0.6 L Monocytes # 0.6 Eosinophils # 0.1 Basophils # 0.0 Nucleated Red Blood Cells # 0.0 Sodium Level 131 L Potassium Level 4.0 Chloride Level 101 Carbon Dioxide Level 23 Anion Gap 7 Blood Urea Nitrogen 23 H Creatinine 1.11 H Est Glomerular Filtrat Rate mL/min Glucose Level 86 Calcium Level 8.2 L Phosphorus Level 3.3 Magnesium Level 1.9 Platelet Func Collagen/Epinephrine 160 Platelet Function Collagen/ADP Imaging Imaging CT enterography 06/13/18: IMPRESSION: 1. Mild thickening and adjacent stranding of the cecum and ascending colon. Small layering mild hyperdensity within the cecum and ascending colon may represent contrast versus ingested contents. However, given findings of recent prior nuclear medicine bleeding scan, findings are concerning for persistent gastrointestinal bleeding. 2. Mild thickening of the distal stomach may be due to underdistension or gastritis. 3. Extensive atherosclerotic vascular calcifications. 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 4. Interval increased moderate bilateral pleural effusions, with adjacent atelectasis / consolidation. 5. Moderate pericardial effusion. Medications Medication Current Medications IV Flush (NS 3 ml) 3 ml PER PROTOCOL IV ; Start 05/28/18 at 19:00 Ondansetron HCl (Zofran Inj) 4 mg Q6H PRN IV NAUSEA/VOMITING; Start 05/28/18 at 19:00 Acetaminophen (Tylenol Tab) 650 mg Q6H PRN PO .PAIN 1-3 OR TEMP Last administered on 06/12/18at 18:23; Admin Dose 650 MG; Start 05/28/18 at 19:00 Acetaminophen/ Hydrocodone Bitart ([place] (5/325)) 1 tab Q6H PRN PO .MOD PAIN 4- 6; Start 05/28/18 at 19:00 Docusate Sodium (Colace) 100 mg Q12H PRN PO .CONSTIPATION Last administered on 06/07/18at 06:57; Admin Dose 100 MG; Start 05/28/18 at 19:00 Magnesium Hydroxide (Milk Of Mag) 30 ml DAILY PRN PO .CONSTIPATION Last administered on 06/06/18at 06:47; Admin Dose 30 ML; Start 05/28/18 at 19:00 Albuterol/ Ipratropium (Duoneb) 3 ml Q4H RESP THERAPY PRN HHN SHORTNESS OF BREATH; Start 05/28/18 at 19:00 Hydralazine HCl (Apresoline) 10 mg Q6H PRN IV ELEVATED BLOOD PRESSURE; Start 05/28/18 at 19:00 Nitroglycerin (Nitroglycerin (Sl Tab) 0.4 Mg) 1 tab Q5M PRN SL ANGINA; Start 05/28/18 at 19:00 Atorvastatin Calcium (Lipitor) 10 mg QHS PO Last administered on 06/12/18 22:01; Admin Dose 10 MG; Start 05/28/18 at 21:00 Levothyroxine Sodium (Synthroid) 100 mcg BEFORE BREAKFAST PO Last administered on 06/12/18 07:34; Admin Dose 100 MCG; Start 05/29/18 at 07:00 Calcium Carbonate (Oyster Shell Calcium) 1.25 gm BID PO Last administered on 06/13/18 09:59; Admin Dose 1.25 GM; Start 05/28/18 at 21:00 Cyanocobalamin (Vitamin B12) 1,000 mcg DAILY PO Last administered on 06/09/18 10:20; Admin Dose 1,000 MCG; Start 05/29/18 at 09:00; Status Hold Multivitamins/ Minerals (Theragran-M) 1 tab DAILY PO Last administered on 06/13/18 09:59; Admin Dose 1 TAB; Start 05/29/18 at 09:00 Pantoprazole (Protonix Tab) 40 mg BID@06,18 PO Last administered on 06/12/18 17:57; Admin Dose 40 MG; Start 06/02/18 at 18:00 Polyethylene Glycol (Miralax) 17 gm DAILY PO Last administered on 06/09/18 09:35; Admin Dose 17 GM; Start 06/04/18 at 11:30 Carvedilol (Coreg) 6.25 mg BID PO Last administered on 06/13/18 10:00; Admin Dose 6.25 MG; Start 06/09/18 at 21:00 Sacubitril/ Valsartan (Entresto 24 Mg-26 Mg) 1 tab BID PO Last administered on 06/13/18 10:00; Admin Dose 1 TAB; Start 06/12/18 at 21:00; Status Hold Sodium Chloride 1,000 ml @ 70 mls/hr [id number] IV ; Start 06/13/18 at 09:30; Stop 06/13/18 at 19:00 CATRACHITO SAN NP Jun 13, 2018 17:32
--- NOTE | 2018-06-13 17:58 | CONS ---
Assessment/Plan Assessment/Plan Assessment/Plan (Daily) Lower GI bleed of unknown source. Patient has had nuclear scans, angiography, and enterography. Unable to localize. Recommend transfer to higher level of care for capsule first double-balloon enterography Diagnostic laparoscopy is not recommended. There is no mass seen on any study. Further the bleeding is not been localized. She is a very high surgical risk for a low yield procedure per Consultation Date/Type/Reason Admit Date/Time May 28, 2018 at 19:26 Date/Time of Note DATE: 06/13/18 TIME: 17:50 Hx of Present Illness Patient is an 82-year-old female with a complicated medical history. She has been hospitalized for approximately 3 weeks for recurrent lower GI bleed. The bleeding has been unable to be localized. I was called for surgical consultation. She has had multiple colonoscopies, IR procedures, and a bleeding scan. There is some questionable bleeding in the right lower quadrant but this is not been able to be localized. Patient atrial fibrillation. She is on Eliquis. She also has had a transcatheter aortic valve replacement. She has CHF as well. \ Past Medical History Home Meds Reported Medications Cyanocobalamin (Vitamin B-12) (Vitamin B-12) 1,000 Mcg Tab.subl, 1000 MCG SL DAILY 05/28/18 Multivitamin/Iron/Folic Acid (Centrum Adults Tablet) 1 Each Tablet, 1 EACH PO DAILY, TAB 05/28/18 Calcium Carbonate* (Calcium Carbonate*) 600 MG Ca Tab, 600 MG PO BID, TAB 05/28/18 Omeprazole* (Omeprazole*) 40 Mg Capsule.dr, 40 MG PO DAILY, #30 CAP 05/28/18 Atorvastatin Calcium (Atorvastatin Calcium) 10 Mg Tablet, 10 MG PO QHS, #30 TAB 05/28/18 Apixaban* (Eliquis*) 2.5 Mg Tablet, 2.5 MG PO DAILY, TAB 05/28/18 Sacubitril/Valsartan (Entresto 49 mg-51 mg Tablet) 1 Each Tablet, 1 EACH PO DAILY, TAB 05/28/18 Carvedilol* (Carvedilol*) 6.25 Mg Tablet, 6.25 MG PO DAILY, #60 TAB 05/28/18 Furosemide* (Furosemide*) 40 Mg Tablet, 40 MG PO DAILY, TAB 05/28/18 Spironolactone* (Aldactone*) 25 Mg Tablet, 25 MG PO DAILY, #30 TAB 05/28/18 Levothyroxine Sodium* (Levothyroxine Sodium*) 100 Mcg Tablet, 100 MCG PO BEFORE BREAKFAST, #30 TAB 05/28/18 Medications Current Medications IV Flush (NS 3 ml) 3 ml PER PROTOCOL IV ; Start 05/28/18 at 19:00 Ondansetron HCl (Zofran Inj) 4 mg Q6H PRN IV NAUSEA/VOMITING; Start 05/28/18 at 19:00 Acetaminophen (Tylenol Tab) 650 mg Q6H PRN PO .PAIN 1-3 OR TEMP Last administ ered on 06/12/18at 18:23; Admin Dose 650 MG; Start 05/28/18 at 19:00 Acetaminophen/ Hydrocodone Bitart ([place] (5/325)) 1 tab Q6H PRN PO .MOD PAIN 4- 6; Start 05/28/18 at 19:00 Docusate Sodium (Colace) 100 mg Q12H PRN PO .CONSTIPATION Last administered on 06/07/18at 06:57; Admin Dose 100 MG; Start 05/28/18 at 19:00 Magnesium Hydroxide (Milk Of Mag) 30 ml DAILY PRN PO .CONSTIPATION Last administered on 06/06/18at 06:47; Admin Dose 30 ML; Start 05/28/18 at 19:00 Albuterol/ Ipratropium (Duoneb) 3 ml Q4H RESP THERAPY PRN HHN SHORTNESS OF BREATH; Start 05/28/18 at 19:00 Hydralazine HCl (Apresoline) 10 mg Q6H PRN IV ELEVATED BLOOD PRESSURE; Start 05/28/18 at 19:00 Nitroglycerin (Nitroglycerin (Sl Tab) 0.4 Mg) 1 tab Q5M PRN SL ANGINA; Start 05/28/18 at 19:00 Atorvastatin Calcium (Lipitor) 10 mg QHS PO Last administered on 06/12/18at 22:01; Admin Dose 10 MG; Start 05/28/18 at 21:00 Levothyroxine Sodium (Synthroid) 100 mcg BEFORE BREAKFAST PO Last administered on 06/12/18 07:34; Admin Dose 100 MCG; Start 05/29/18 at 07:00 Calcium Carbonate (Oyster Shell Calcium) 1.25 gm BID PO Last administered on 06/13/18 09:59; Admin Dose 1.25 GM; Start 05/28/18 at 21:00 Cyanocobalamin (Vitamin B12) 1,000 mcg DAILY PO Last administered on 06/09/18 10:20; Admin Dose 1,000 MCG; Start 05/29/18 at 09:00; Status Hold Multivitamins/ Minerals (Theragran-M) 1 tab DAILY PO Last administered on 06/13/18 09:59; Admin Dose 1 TAB; Start 05/29/18 at 09:00 Pantoprazole (Protonix Tab) 40 mg BID@06,18 PO Last administered on 06/12/18 17:57; Admin Dose 40 MG; Start 06/02/18 at 18:00 Polyethylene Glycol (Miralax) 17 gm DAILY PO Last administered on 06/09/18 09:35; Admin Dose 17 GM; Start 06/04/18 at 11:30 Carvedilol (Coreg) 6.25 mg BID PO Last administered on 06/13/18 10:00; Admin Dose 6.25 MG; Start 06/09/18 at 21:00 Sacubitril/ Valsartan (Entresto 24 Mg-26 Mg) 1 tab BID PO Last administered on 06/13/18 10:00; Admin Dose 1 TAB; Start 06/12/18 at 21:00; Status Hold Sodium Chloride 1,000 ml @ 70 mls/hr [id number] IV ; Start 06/13/18 at 09:30; Stop 06/13/18 at 19:00 Allergies: Coded Allergies: No Known Allergy (Unverified , 06/02/18) Past Surgical History Past Surgical Hx: no surgical history Social History Alcohol Use: none Smoking Status: Never smoker Drug Use: none Exam/Review of Systems Exam Vitals Vital Signs Date Temp Pulse Resp B/P (MAP) Pulse Ox O2 O2 Flow FiO2 Time Delivery Rate 06/13/18 97.2 60 18 101/59 87 13:49 (73) 06/12/18 Room Air 02:37 06/10/18 2.0 14:19 Intake and Output 06/12/18 06/12/18 06/13/18 1515:00 23:00 07:00 IntakeIntake Total 1380 ml 300 ml BalanceBalance 1380 ml 300 ml Constitutional: alert, oriented, well developed Psych: no complaints Head: normocephalic Eyes: nl conjunctiva ENMT: nl external ears & nose Neck: supple Respiratory: clear to auscultation Cardiovascular: regular rate and rhythm Gastrointestinal: soft, non-tender Musculoskeletal: nl extremities to inspection Extremities: normal pulses Results Result Diagram: 06/13/18 0428 06/13/18 0429 Results 24hrs Laboratory Tests Test 06/13/18 04:28 06/13/18 04:29 06/13/18 15:37 White Blood Count 7.2 Red Blood Count 2.28 L Hemoglobin 7.4 L Hematocrit 22.1 L Mean Corpuscular Volume 96.9 Mean Corpuscular Hemoglobin 32.5 Mean Corpuscular Hemoglobin Concent 33.5 Red Cell Distribution Width 16.8 H Platelet Count 102 L Mean Platelet Volume 9.7 Immature Granulocytes % 0.400 Neutrophils % 80.4 H Lymphocytes % 8.1 L Monocytes % 8.7 Eosinophils % 1.8 Basophils % 0.6 Nucleated Red Blood Cells % 0.0 Immature Granulocytes # 0.030 Neutrophils # 5.8 Lymphocytes # 0.6 L Monocytes # 0.6 Eosinophils # 0.1 Basophils # 0.0 Nucleated Red Blood Cells # 0.0 Sodium Level 131 L Potassium Level 4.0 Chloride Level 101 Carbon Dioxide Level 23 Anion Gap 7 Blood Urea Nitrogen 23 H Creatinine 1.11 H Est Glomerular Filtrat Rate mL/min Glucose Level 86 Calcium Level 8.2 L Phosphorus Level 3.3 Magnesium Level 1.9 Platelet Func Collagen/Epinephrine 160 Platelet Function Collagen/ADP Medications Medication Current Medications IV Flush (NS 3 ml) 3 ml PER PROTOCOL IV ; Start 05/28/18 at 19:00 Ondansetron HCl (Zofran Inj) 4 mg Q6H PRN IV NAUSEA/VOMITING; Start 05/28/18 at 19:00 Acetaminophen (Tylenol Tab) 650 mg Q6H PRN PO .PAIN 1-3 OR TEMP Last administered on 06/12/18at 18:23; Admin Dose 650 MG; Start 05/28/18 at 19:00 Acetaminophen/ Hydrocodone Bitart ([place] (5/325)) 1 tab Q6H PRN PO .MOD PAIN 4- 6; Start 05/28/18 at 19:00 Docusate Sodium (Colace) 100 mg Q12H PRN PO .CONSTIPATION Last administered on 06/07/18 06:57; Admin Dose 100 MG; Start 05/28/18 at 19:00 Magnesium Hydroxide (Milk Of Mag) 30 ml DAILY PRN PO .CONSTIPATION Last administered on 06/06/18 06:47; Admin Dose 30 ML; Start 05/28/18 at 19:00 Albuterol/ Ipratropium (Duoneb) 3 ml Q4H RESP THERAPY PRN HHN SHORTNESS OF BREATH; Start 05/28/18 at 19:00 Hydralazine HCl (Apresoline) 10 mg Q6H PRN IV ELEVATED BLOOD PRESSURE; Start 05/28/18 at 19:00 Nitroglycerin (Nitroglycerin (Sl Tab) 0.4 Mg) 1 tab Q5M PRN SL ANGINA; Start 05/28/18 at 19:00 Atorvastatin Calcium (Lipitor) 10 mg QHS PO Last administered on 06/12/18 22:01; Admin Dose 10 MG; Start 05/28/18 at 21:00 Levothyroxine Sodium (Synthroid) 100 mcg BEFORE BREAKFAST PO Last administered on 06/12/18 07:34; Admin Dose 100 MCG; Start 05/29/18 at 07:00 Calcium Carbonate (Oyster Shell Calcium) 1.25 gm BID PO Last administered on 06/13/18 09:59; Admin Dose 1.25 GM; Start 05/28/18 at 21:00 Cyanocobalamin (Vitamin B12) 1,000 mcg DAILY PO Last administered on 06/09/18 10:20; Admin Dose 1,000 MCG; Start 05/29/18 at 09:00; Status Hold Multivitamins/ Minerals (Theragran-M) 1 tab DAILY PO Last administered on 06/13/18 09:59; Admin Dose 1 TAB; Start 05/29/18 at 09:00 Pantoprazole (Protonix Tab) 40 mg BID@,18 PO Last administered on 06/12/18 17:57; Admin Dose 40 MG; Start 06/02/18 at 18:00 Polyethylene Glycol (Miralax) 17 gm DAILY PO Last administered on 06/09/18 09:35; Admin Dose 17 GM; Start 06/04/18 at 11:30 Carvedilol (Coreg) 6.25 mg BID PO Last administered on 3/30/19at 10:00; Admin Dose 6.25 MG; Start 06/09/18 at 21:00 Sacubitril/ Valsartan (Entresto 24 Mg-26 Mg) 1 tab BID PO Last administered on 06/13/18at 10:00; Admin Dose 1 TAB; Start 06/12/18 at 21:00; Status Hold Sodium Chloride 1,000 ml @ 70 mls/hr [id number] IV ; Start 06/13/18 at 09:30; Stop 06/13/18 at 19:00 JO SANCHEZ MD Jun 13, 2018 17:58
[2018-06-13] MEDS: ATORVASTATIN 10 MG TAB PO SCH (20:56)
[2018-06-14] VITALS: BP 119/60; PULSE 63; RESP 18
[2018-06-14 00:15] VITALS: BP 115/59; PULSE 60; RESP 17
[2018-06-14 02:00] VITALS: BP 119/65; PULSE 60; RESP 18
[2018-06-14] MEDS: PANTOPRAZOLE (EC) 40 MG TAB PO SCH ×2 (07:42→18:35)
[2018-06-14] MEDS: LEVOTHYROXINE 100 MCG TAB PO SCH (07:42)
--- NOTE | 2018-06-14 08:56 | PN ---
Date/Time of Note Date/Time of Note DATE: 06/14/18 TIME: 08:53 Assessment/Plan VTE Prophylaxis Risk score (from Nsg)>0 risk: 7 SCD applied (from Nsg): Yes Pharmacological prophylaxis: other Lines/Catheters IV Catheter Type (from Nrsg): PICC Line Central line still needed: Yes Urinary Cath still in place: No Assessment/Plan Hospital Course renal follow up SUBJECTIVE: The patient is stable. still has melena s/p transfusion d/w Dr Landis and son at the bedside OBJECTIVE: HEENT: Head is normocephalic. NECK: Supple. HEART: Regular rate. LUNGS: Show diminished breath sounds at the base. ABDOMEN: Soft, nontender to palpation without rebound or guarding. EXTREMITIES: Negative for clubbing, cyanosis, no edema. DERMATOLOGIC: No rashes. MUSCULOSKELETAL: No joint effusion. NEUROLOGIC: No change in exam. MEDICATIONS: Reviewed. ASSESSMENT AND PLAN: 1. Nonoliguric acute kidney injury secondary to hemodynamics. Renal function stabilized. Continue to monitor closely for any signs of contrast-associated nephropathy. Urinary output has been adequate. 2. Chronic kidney disease. Renal function stabilized. Continue current treatment plan. Continue supportive care, renally dose all medicines. 3. Mineral bone disorder. Monitor calcium and phosphorus levels. 4. Anemia with active GI bleeding. Patient is status post angiogram which was negative. Questionable ovarian lesion which is abutting to cecum, potentially could be ovarian cancer invading into the cecum. awaiting transfer to a tertiary center. no indication for DDAVP to reverse platelet dysfunction due to uremia as her BUN level is normal 6. Atrial fibrillation. Continue medical management. 7. Congestive heart failure. The patient is currently compensated. 8. Hypothyroidism. Continue Synthroid. 9. History of dementia. 10. Dyslipidemia. Continue statin therapy. Result Diagram: 06/14/18 0434 06/14/18 0434 Results 24hrs Laboratory Tests Test 06/13/18 15:37 06/14/18 01:09 06/14/18 04:34 Platelet Func Collagen/Epinephrine 160 Platelet Function Collagen/ADP Hemoglobin 10.0 #L 10.2 L Hematocrit 29.7 #L 30.8 L White Blood Count 5.7 # Red Blood Count 3.28 #L Mean Corpuscular Volume 93.9 Mean Corpuscular Hemoglobin 31.1 Mean Corpuscular Hemoglobin Concent 33.1 Red Cell Distribution Width 16.4 H Platelet Count 99 L Mean Platelet Volume 9.6 Immature Granulocytes % 0.500 H Neutrophils % 77.4 H Lymphocytes % 10.9 L Monocytes % 8.4 Eosinophils % 2.1 Basophils % 0.7 Nucleated Red Blood Cells % 0.0 Immature Granulocytes # 0.030 Neutrophils # 4.4 Lymphocytes # 0.6 L Monocytes # 0.5 Eosinophils # 0.1 Basophils # 0.0 Nucleated Red Blood Cells # 0.0 Sodium Level 131 L Potassium Level 4.1 Chloride Level 105 Carbon Dioxide Level 22 Anion Gap 4 L Blood Urea Nitrogen 18 Creatinine 0.88 Est Glomerular Filtrat Rate mL/min Glucose Level 72 Calcium Level 8.6 Exam/Review of Systems Exam Vitals Vital Signs Date Temp Pulse Resp B/P (MAP) Pulse Ox O2 O2 Flow FiO2 Time Delivery Rate 06/14/18 98.4 60 18 119/65 94 02:00 (83) 06/14/18 Room Air 00:15 06/10/18 2.0 14:19 Intake and Output 06/13/18 06/13/18 06/14/18 1515:00 23:00 07:00 IntakeIntake Total 420 ml 470 ml BalanceBalance 420 ml 470 ml Results Results 24hrs Laboratory Tests Test 06/13/18 15:37 06/14/18 01:09 06/14/18 04:34 Platelet Func Collagen/Epinephrine 160 Platelet Function Collagen/ADP Hemoglobin 10.0 #L 10.2 L Hematocrit 29.7 #L 30.8 L White Blood Count 5.7 # Red Blood Count 3.28 #L Mean Corpuscular Volume 93.9 Mean Corpuscular Hemoglobin 31.1 Mean Corpuscular Hemoglobin Concent 33.1 Red Cell Distribution Width 16.4 H Platelet Count 99 L Mean Platelet Volume 9.6 Immature Granulocytes % 0.500 H Neutrophils % 77.4 H Lymphocytes % 10.9 L Monocytes % 8.4 Eosinophils % 2.1 Basophils % 0.7 Nucleated Red Blood Cells % 0.0 Immature Granulocytes # 0.030 Neutrophils # 4.4 Lymphocytes # 0.6 L Monocytes # 0.5 Eosinophils # 0.1 Basophils # 0.0 Nucleated Red Blood Cells # 0.0 Sodium Level 131 L Potassium Level 4.1 Chloride Level 105 Carbon Dioxide Level 22 Anion Gap 4 L Blood Urea Nitrogen 18 Creatinine 0.88 Est Glomerular Filtrat Rate mL/min Glucose Level 72 Calcium Level 8.6 Medications Medication Current Medications IV Flush (NS 3 ml) 3 ml PER PROTOCOL IV ; Start 05/28/18 at 19:00 Ondansetron HCl (Zofran Inj) 4 mg Q6H PRN IV NAUSEA/VOMITING; Start 05/28/18 at 19:00 Acetaminophen (Tylenol Tab) 650 mg Q6H PRN PO .PAIN 1-3 OR TEMP Last administered on 06/12/18 18:23; Admin Dose 650 MG; Start 05/28/18 at 19:00 Acetaminophen/ Hydrocodone Bitart ([place] (5/325)) 1 tab Q6H PRN PO .MOD PAIN 4- 6; Start 05/28/18 at 19:00 Docusate Sodium (Colace) 100 mg Q12H PRN PO .CONSTIPATION Last administered on 06/07/18 06:57; Admin Dose 100 MG; Start 05/28/18 at 19:00 Magnesium Hydroxide (Milk Of Mag) 30 ml DAILY PRN PO .CONSTIPATION Last administered on 06/06/18 06:47; Admin Dose 30 ML; Start 05/28/18 at 19:00 Albuterol/ Ipratropium (Duoneb) 3 ml Q4H RESP THERAPY PRN HHN SHORTNESS OF BREATH; Start 05/28/18 at 19:00 Hydralazine HCl (Apresoline) 10 mg Q6H PRN IV ELEVATED BLOOD PRESSURE; Start 05/28/18 at 19:00 Nitroglycerin (Nitroglycerin (Sl Tab) 0.4 Mg) 1 tab Q5M PRN SL ANGINA; Start 05/28/18 at 19:00 Atorvastatin Calcium (Lipitor) 10 mg QHS PO Last administered on 06/13/18 20:56; Admin Dose 10 MG; Start 05/28/18 at 21:00 Levothyroxine Sodium (Synthroid) 100 mcg BEFORE BREAKFAST PO Last administered on 06/14/18 07:42; Admin Dose 100 MCG; Start 05/29/18 at 07:00 Calcium Carbonate (Oyster Shell Calcium) 1.25 gm BID PO Last administered on 06/13/18 20:57; Admin Dose 1.25 GM; Start 05/28/18 at 21:00 Cyanocobalamin (Vitamin B12) 1,000 mcg DAILY PO Last administered on 06/09/18 10:20; Admin Dose 1,000 MCG; Start 05/29/18 at 09:00; Status Hold Multivitamins/ Minerals (Theragran-M) 1 tab DAILY PO Last administered on 06/13/18 09:59; Admin Dose 1 TAB; Start 05/29/18 at 09:00 Pantoprazole (Protonix Tab) 40 mg BID@,18 PO Last administered on 06/14/18 07:42; Admin Dose 40 MG; Start 06/02/18 at 18:00 Polyethylene Glycol (Miralax) 17 gm DAILY PO Last administered on 06/09/18 09:35; Admin Dose 17 GM; Start 06/04/18 at 11:30 Carvedilol (Coreg) 6.25 mg BID PO Last administered on 06/13/18 20:57; Admin Dose 6.25 MG; Start 06/09/18 at 21:00 Sacubitril/ Valsartan (Entresto 24 Mg-26 Mg) 1 tab BID PO Last administered on 06/13/18at 10:00; Admin Dose 1 TAB; Start 06/12/18 at 21:00; Status Hold RJ DEVINE DO Jun 14, 2018 08:56
[2018-06-14] MEDS: BALSAM PERU/CASTOR OIL 60 GM TUBE TOP SCH ×2 (09:00→20:34)
[2018-06-14] MEDS: CALCIUM CARBONATE 1.25 GM TAB PO SCH ×2 (09:05→20:29)
[2018-06-14] MEDS: MULTIVITAMINS/MINERALS TAB PO SCH (09:05)
[2018-06-14] MEDS: POLYETHYLENE GLYCOL 17 GM PACKET PO SCH (09:08)
--- NOTE | 2018-06-14 12:36 | CONS ---
[facility] LIVE HCIS Consult Follow-up Patient Name: Theresa Coello Unit Number: [id number] Date of : 1935 Patient Status: Admitted Inpatient Attending Doctor: Shira Bell MD Edit: MARSHASMOOTH DO on 06/16/18 @ 13:53 I saw the patient with the SOILS TECHNICIAN and agreed with her assessment and plan. Assessment/Plan Assessment/Plan Assessment/Plan (Daily) # Thrombocytopenia- Platelet 101K today * she had normal plt count of 201K as an outpt so the thrombocytopenia is a new development * thrombocytopenia is likely secondary to consumption from the brisk GI Bleed. no DIC or TTP * DDAVP will add much to her situation at present # Diverticular GI bleed * s/p recent scopes with EGD 05/29/2018 distal esophagitis/gastritis no active bleeding Colonoscopy 05/11/2018 sun-diverticulosis with evidence of recent bleeding * Nuclear medicine bleeding scan positive * at colonoscopy now # Anemia-Hgb 7.4 today * due to above, Hgb 7.4 today * transfuse 2 units PRBC TODAY to keep hgb > 7 Patient seen in collaboration with Dr Walden. Please call with questions or acute issues. thank you. Consultation Date/Type/Reason Admit Date/Time May 28, 2018 at 19:26 Initial Consult Date 06/04/18 Type of Consult Oncology Reason for Consultation Thrombocytopenia/Anemia Requesting Provider: SHIRA BELL MD Date/Time of Note DATE: 06/14/18 TIME: 12:34 24 HR Interval Summary Free Text/Dictation 06/13/2018 Entry Will get 2 units PRBC today family at bed side- all QS answered GI bleed reported dw staff Constitutional: requiring IVF, requiring O2, other (generelized weakness) Detailed Summary Eyes: no complaints ENT: no complaints Respiratory: no complaints Cardiovascular: no complaints Gastrointestinal: blood Genitourinary: no complaints Musculoskeletal: other (c/o genereleized weakness) Skin: no complaints Neurologic: no complaints Endocrine: no complaints Exam/Review of Systems Exam Vitals Vital Signs Date Temp Pulse Resp B/P (MAP) Pulse Ox O2 O2 Flow FiO2 Time Delivery Rate 06/14/18 98.4 60 18 119/65 94 02:00 (83) 06/14/18 Room Air 00:15 06/10/18 2.0 14:19 Intake and Output 06/13/18 06/13/18 06/14/18 1515:00 23:00 07:00 IntakeIntake Total 420 ml 470 ml BalanceBalance 420 ml 470 ml Constitutional: alert, well developed, frail Psych: nl mood/affect Head: atraumatic Eyes: nl lids, nl sclera ENMT: nl external ears & nose Neck: non-tender Respiratory: diminished breath sounds (bilaterally) Cardiovascular: nl pulses, other (s1s2) Gastrointestinal: soft, non-tender Musculoskeletal: nl extremities to inspection Extremities: normal pulses Neurological: other (alert/responsive) Skin: nl turgor Lymph: nontender Results Result Diagram: 06/14/18 0434 06/14/18 0434 Results 24hrs Laboratory Tests Test 06/13/18 15:37 06/14/18 01:09 06/14/18 04:34 Platelet Func Collagen/Epinephrine 160 Platelet Function Collagen/ADP Hemoglobin 10.0 #L 10.2 L Hematocrit 29.7 #L 30.8 L White Blood Count 5.7 # Red Blood Count 3.28 #L Mean Corpuscular Volume 93.9 Mean Corpuscular Hemoglobin 31.1 Mean Corpuscular Hemoglobin Concent 33.1 Red Cell Distribution Width 16.4 H Platelet Count 99 L Mean Platelet Volume 9.6 Immature Granulocytes % 0.500 H Neutrophils % 77.4 H Lymphocytes % 10.9 L Monocytes % 8.4 Eosinophils % 2.1 Basophils % 0.7 Nucleated Red Blood Cells % 0.0 Immature Granulocytes # 0.030 Neutrophils # 4.4 Lymphocytes # 0.6 L Monocytes # 0.5 Eosinophils # 0.1 Basophils # 0.0 Nucleated Red Blood Cells # 0.0 Sodium Level 131 L Potassium Level 4.1 Chloride Level 105 Carbon Dioxide Level 22 Anion Gap 4 L Blood Urea Nitrogen 18 Creatinine 0.88 Est Glomerular Filtrat Rate mL/min Glucose Level 72 Calcium Level 8.6 Medications Medication Current Medications IV Flush (NS 3 ml) 3 ml PER PROTOCOL IV ; Start 05/28/18 at 19:00 Ondansetron HCl (Zofran Inj) 4 mg Q6H PRN IV NAUSEA/VOMITING; Start 05/28/18 at 19:00 Acetaminophen (Tylenol Tab) 650 mg Q6H PRN PO .PAIN 1-3 OR TEMP Last admini stered on 06/12/18 18:23; Admin Dose 650 MG; Start 05/28/18 at 19:00 Acetaminophen/ Hydrocodone Bitart ([place] (5/325)) 1 tab Q6H PRN PO .MOD PAIN 4- 6; Start 05/28/18 at 19:00 Docusate Sodium (Colace) 100 mg Q12H PRN PO .CONSTIPATION Last administered on 06/07/18 06:57; Admin Dose 100 MG; Start 05/28/18 at 19:00 Magnesium Hydroxide (Milk Of Mag) 30 ml DAILY PRN PO .CONSTIPATION Last administered on 06/06/18 06:47; Admin Dose 30 ML; Start 05/28/18 at 19:00 Albuterol/ Ipratropium (Duoneb) 3 ml Q4H RESP THERAPY PRN HHN SHORTNESS OF BREATH; Start 05/28/18 at 19:00 Hydralazine HCl (Apresoline) 10 mg Q6H PRN IV ELEVATED BLOOD PRESSURE; Start 05/28/18 at 19:00 Nitroglycerin (Nitroglycerin (Sl Tab) 0.4 Mg) 1 tab Q5M PRN SL ANGINA; Start 05/28/18 at 19:00 Atorvastatin Calcium (Lipitor) 10 mg QHS PO Last administered on 06/13/18 20:56; Admin Dose 10 MG; Start 05/28/18 at 21:00 Levothyroxine Sodium (Synthroid) 100 mcg BEFORE BREAKFAST PO Last administered on 06/14/18 07:42; Admin Dose 100 MCG; Start 05/29/18 at 07:00 Calcium Carbonate (Oyster Shell Calcium) 1.25 gm BID PO Last administered on 06/14/18 09:05; Admin Dose 1.25 GM; Start 05/28/18 at 21:00 Cyanocobalamin (Vitamin B12) 1,000 mcg DAILY PO Last administered on 3/26/19at 10:20; Admin Dose 1,000 MCG; Start 05/29/18 at 09:00; Status Hold Multivitamins/ Minerals (Theragran-M) 1 tab DAILY PO Last administered on 06/14 09:05; Admin Dose 1 TAB; Start 05/29/18 at 09:00 Pantoprazole (Protonix Tab) 40 mg BID@06,18 PO Last administered on 06/14/18 07:42; Admin Dose 40 MG; Start 06/02/18 at 18:00 Polyethylene Glycol (Miralax) 17 gm DAILY PO Last administered on 06/14/18at 09:08; Admin Dose 17 GM; Start 06/04/18 at 11:30 Carvedilol (Coreg) 6.25 mg BID PO Last administered on 06/14/18 09:06; Admin Dose 6.25 MG; Start 06/09/18 at 21:00 Sacubitril/ Valsartan (Entresto 24 Mg-26 Mg) 1 tab BID PO Last administered on 06/13/18at 10:00; Admin Dose 1 TAB; Start 06/12/18 at 21:00; Status Hold SOHAN BASILIO Jun 14, 2018 12:36
--- NOTE | 2018-06-14 12:38 | CONS ---
Assessment/Plan Assessment/Plan Assessment/Plan (Daily) # Thrombocytopenia- Platelet 99 K today * she had normal plt count of 201K as an outpt so the thrombocytopenia is a new development * thrombocytopenia is likely secondary to consumption from the brisk GI Bleed. no DIC or TTP * DDAVP will add much to her situation at present # Diverticular GI bleed * s/p recent scopes with EGD 05/29/2018 distal esophagitis/gastritis no active bleeding Colonoscopy 05/11/2018 sun-diverticulosis with evidence of recent bleeding * Nuclear medicine bleeding scan positive * at colonoscopy now # Anemia- Hgb 10.2 * SP 2 units PRBC * transfuse to keep hgb > 7 Patient seen in collaboration with Dr Walden. Plan to transfer patient to [facility] for higher level of care. Please call with questions or acute issues. thank you. Consultation Date/Type/Reason Admit Date/Time May 28, 2018 at 19:26 Initial Consult Date 06/04/18 Type of Consult Oncology Reason for Consultation Anemia/Thrombocytopenia Requesting Provider: SHIRA ANTOINE MD Date/Time of Note DATE: 06/14/18 TIME: 12:36 24 HR Interval Summary Free Text/Dictation Patient is resting in bed; seems comfortable Family ay bed side- reported GI bleed ; Hgb is elevated today. All Qs answered No new issues reported overnight per staff Plan to transfer patient for high level of care dw staff Constitutional: requiring IVF, requiring O2, other (generelized weakness) Detailed Summary Eyes: no complaints ENT: no complaints Respiratory: no complaints Cardiovascular: no complaints Gastrointestinal: no complaints Genitourinary: no complaints Musculoskeletal: other (generelized weakness) Skin: no complaints Neurologic: no complaints Endocrine: no complaints Lymphatic: no complaints Psychological: no complaints Exam/Review of Systems Exam Vitals Vital Signs Date Temp Pulse Resp B/P (MAP) Pulse Ox O2 O2 Flow FiO2 Time Delivery Rate 06/14/18 98.4 60 18 119/65 94 02:00 (83) 06/14/18 Room Air 00:15 06/10/18 2.0 14:19 Intake and Output 06/13/18 06/13/18 06/14/18 1515:00 23:00 07:00 IntakeIntake Total 420 ml 470 ml BalanceBalance 420 ml 470 ml Constitutional: alert, well developed Psych: nl mood/affect Head: normocephalic Eyes: EOMI, nl lids, nl sclera ENMT: nl external ears & nose Neck: non-tender Respiratory: clear to auscultation Cardiovascular: nl pulses, other (s1s2) Gastrointestinal: soft, non-tender Musculoskeletal: nl extremities to inspection Extremities: normal pulses Neurological: other (alert/responsive) Skin: nl turgor Lymph: nontender Results Result Diagram: 06/14/18 0434 06/14/18 0434 Results 24hrs Laboratory Tests Test 06/13/18 15:37 06/14/18 01:09 06/14/18 04:34 Platelet Func Collagen/Epinephrine 160 Platelet Function Collagen/ADP Hemoglobin 10.0 #L 10.2 L Hematocrit 29.7 #L 30.8 L White Blood Count 5.7 # Red Blood Count 3.28 #L Mean Corpuscular Volume 93.9 Mean Corpuscular Hemoglobin 31.1 Mean Corpuscular Hemoglobin Concent 33.1 Red Cell Distribution Width 16.4 H Platelet Count 99 L Mean Platelet Volume 9.6 Immature Granulocytes % 0.500 H Neutrophils % 77.4 H Lymphocytes % 10.9 L Monocytes % 8.4 Eosinophils % 2.1 Basophils % 0.7 Nucleated Red Blood Cells % 0.0 Immature Granulocytes # 0.030 Neutrophils # 4.4 Lymphocytes # 0.6 L Monocytes # 0.5 Eosinophils # 0.1 Basophils # 0.0 Nucleated Red Blood Cells # 0.0 Sodium Level 131 L Potassium Level 4.1 Chloride Level 105 Carbon Dioxide Level 22 Anion Gap 4 L Blood Urea Nitrogen 18 Creatinine 0.88 Est Glomerular Filtrat Rate mL/min Glucose Level 72 Calcium Level 8.6 Medications Medication Current Medications IV Flush (NS 3 ml) 3 ml PER PROTOCOL IV ; Start 05/28/18 at 19:00 Ondansetron HCl (Zofran Inj) 4 mg Q6H PRN IV NAUSEA/VOMITING; Start 05/28/18 at 19:00 Acetaminophen (Tylenol Tab) 650 mg Q6H PRN PO .PAIN 1-3 OR TEMP Last administered on 06/12/18at 18:23; Admin Dose 650 MG; Start 05/28/18 at 19:00 Acetaminophen/ Hydrocodone Bitart ([place] (5/325)) 1 tab Q6H PRN PO .MOD PAIN 4- 6; Start 05/28/18 at 19:00 Docusate Sodium (Colace) 100 mg Q12H PRN PO .CONSTIPATION Last administered on 06/07/18 06:57; Admin Dose 100 MG; Start 05/28/18 at 19:00 Magnesium Hydroxide (Milk Of Mag) 30 ml DAILY PRN PO .CONSTIPATION Last administered on 06/06/18 06:47; Admin Dose 30 ML; Start 05/28/18 at 19:00 Albuterol/ Ipratropium (Duoneb) 3 ml Q4H RESP THERAPY PRN HHN SHORTNESS OF BREATH; Start 05/28/18 at 19:00 Hydralazine HCl (Apresoline) 10 mg Q6H PRN IV ELEVATED BLOOD PRESSURE; Start 05/28/18 at 19:00 Nitroglycerin (Nitroglycerin (Sl Tab) 0.4 Mg) 1 tab Q5M PRN SL ANGINA; Start 05/28/18 at 19:00 Atorvastatin Calcium (Lipitor) 10 mg QHS PO Last administered on 06/13/18 20:56; Admin Dose 10 MG; Start 05/28/18 at 21:00 Levothyroxine Sodium (Synthroid) 100 mcg BEFORE BREAKFAST PO Last administered on 06/14/18 07:42; Admin Dose 100 MCG; Start 05/29/18 at 07:00 Calcium Carbonate (Oyster Shell Calcium) 1.25 gm BID PO Last administered on 06/14/18 09:05; Admin Dose 1.25 GM; Start 05/28/18 at 21:00 Cyanocobalamin (Vitamin B12) 1,000 mcg DAILY PO Last administered on 06/09/18 10:20; Admin Dose 1,000 MCG; Start 05/29/18 at 09:00; Status Hold Multivitamins/ Minerals (Theragran-M) 1 tab DAILY PO Last administered on 06/14/18 09:05; Admin Dose 1 TAB; Start 05/29/18 at 09:00 Pantoprazole (Protonix Tab) 40 mg BID@,18 PO Last administered on 06/14/18 07:42; Admin Dose 40 MG; Start 06/02/18 at 18:00 Polyethylene Glycol (Miralax) 17 gm DAILY PO Last administered on 06/14/18 09:08; Admin Dose 17 GM; Start 06/04/18 at 11:30 Carvedilol (Coreg) 6.25 mg BID PO Last administered on 06/14/18at 09:06; Admin Dose 6.25 MG; Start 06/09/18 at 21:00 Sacubitril/ Valsartan (Entresto 24 Mg-26 Mg) 1 tab BID PO Last administered on 06/13/18at 10:00; Admin Dose 1 TAB; Start 06/12/18 at 21:00; Status Hold SOHAN BASILIO Jun 14, 2018 12:38
--- NOTE | 2018-06-14 13:45 | PN ---
Date/Time of Note Date/Time of Note DATE: 06/14/18 TIME: 13:33 Assessment/Plan VTE Prophylaxis Risk score (from Nsg)>0 risk: 7 SCD applied (from Nsg): Yes Pharmacological prophylaxis: NA/contraindicated Pharm contraindication: bleeding Lines/Catheters IV Catheter Type (from Nrsg): PICC Line Central line still needed: Yes Urinary Cath still in place: No Assessment/Plan Hospital Course S: Patient still with signs of lower GI bleeding, had PRBC transfusion performed yesterday. Seen by surgery team yesterday as well. Awaiting possible transfer to higher level of care facility such as [facility] for further workup. O: VS - see below PHYSICAL EXAMINATION: GENERAL: lying in bed, NAD HEENT: Pupils equal, round, reactive to light. Extraocular muscles intact. NECK: Supple. No thyromegaly. LUNGS: Clear to auscultation bilaterally. CARDIOVASCULAR: S1 and S2 heard. No rubs or gallops. ABDOMEN: Soft, nontender, nondistended. Normal bowel sounds. No rebound or guarding. MUSCULOSKELETAL: No lower extremity edema bilaterally, some mild upper extremity swelling bilaterally in the arms. PICC site in right upper extremity appears clean dry and intact otherwise NEUROLOGIC: No focal deficits. GI bleeding scan June 09, 2018: IMPRESSION: Scintigraphically detectable gastrointestinal bleeding in the right lower abdominal quadrant, with the likely origin in the cecum. Colonoscopy June 10, 2018: [place] diverticulosis, no active bleeding noted CT enterography: IMPRESSION: 1. Mild thickening and adjacent stranding of the cecum and ascending colon. Small layering mild hyperdensity within the cecum and ascending colon may represent contrast versus ingested contents. However, given findings of recent prior nuclear medicine bleeding scan, findings are concerning for persistent gastrointestinal bleeding. 2. Mild thickening of the distal stomach may be due to underdistension or gastritis. 3. Extensive atherosclerotic vascular calcifications. 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 4. Interval increased moderate bilateral pleural effusions, with adjacent atelectasis / consolidation. 5. Moderate pericardial effusion. ASSESSMENT AND PLAN: 82-year-old female coming in with history of paroxysmal atrial fibrillation on Eliquis, transcatheter aortic valve replacement, congestive heart failure, recent lower gastrointestinal bleeding 2 weeks ago, hospitalized for that, status post colonoscopy with internal hemorrhoids and d iverticulosis, presents with continued lower gastrointestinal bleeding and anemia, hemoglobin 5.9. 1. Anemia, lower gastrointestinal bleeding-likely secondary to diverticular source. On presentation the hemoglobin 5.9. Has had 4 separate occurrences where she needed PRBC transfusions this admission, and again we will get another transfusion now. - Continue to hold all anticoagulants including Eliquis (held since admission 05/28) -Despite positive tagged RBC scan results, colonoscopy, as well as IR embolization procedure again did not show any active bleeding. CT enterography results reviewed as well. As of now unable to localize site of what is likely a bleed -and general surgery team evaluated the patient as well yesterday. -Follow-up GI, cardiology, renal, and surgery recommendations. -Again, consults now agreeing patient needs to be transferred to higher level of care for either double balloon enterography to be performed, capsule test, or other test to identify the source of bleed that we cannot perform here. Family is in agreement for this, supportive employment case manager actively working on this now. 2. Thrombocytopenia- Platelets initially were found to be in the 30-50 range earlier during her admission, had been trending up the last few days but today is down 99, likely having a slow downtrend again as a result from her still active bleeding occurring. -Monitor, follow-up further hematology oncology recommendations, -We will check another H&H tonight. 3. History of congestive heart failure. BNP 10,000 this admission. - Continue current cardiac medications cautiously -Had been holding Entresto but since the creatinine improved today will restart today. 4. High cholesterol. -Continue statin 5. History of transcatheter aortic valve replacement (TAVR). - Carefully continue current cardiac medications per cardiology recommendations 6. History of paroxysmal atrial fibrillation. Presently rate controlled - again, continue to monitor heart rate on telemetry. - Again, holding off on anticoagulation given her gastrointestinal bleeding presently right now. - Continue Coreg and follow further cardiology recommendations 7. SHANEKA -slowly improving with intermittent doses of IV fluids cautiously given given her CHF history -Monitor for now, follow-up renal recs. 8. Gastrointestinal prophylaxis. Again, continue on PPI IV b.i.d. 9. Deep venous thrombosis prophylaxis. SCDs - avoid anticoagulants given GI bleeding Result Diagram: 06/14/18 0434 06/14/18 043 Results 24hrs Laboratory Tests Test 06/13/18 15:37 06/14/18 01:09 06/14/18 04:34 Platelet Func Collagen/Epinephrine 160 Platelet Function Collagen/ADP Hemoglobin 10.0 #L 10.2 L Hematocrit 29.7 #L 30.8 L White Blood Count 5.7 # Red Blood Count 3.28 #L Mean Corpuscular Volume 93.9 Mean Corpuscular Hemoglobin 31.1 Mean Corpuscular Hemoglobin Concent 33.1 Red Cell Distribution Width 16.4 H Platelet Count 99 L Mean Platelet Volume 9.6 Immature Granulocytes % 0.500 H Neutrophils % 77.4 H Lymphocytes % 10.9 L Monocytes % 8.4 Eosinophils % 2.1 Basophils % 0.7 Nucleated Red Blood Cells % 0.0 Immature Granulocytes # 0.030 Neutrophils # 4.4 Lymphocytes # 0.6 L Monocytes # 0.5 Eosinophils # 0.1 Basophils # 0.0 Nucleated Red Blood Cells # 0.0 Sodium Level 131 L Potassium Level 4.1 Chloride Level 105 Carbon Dioxide Level 22 Anion Gap 4 L Blood Urea Nitrogen 18 Creatinine 0.88 Est Glomerular Filtrat Rate mL/min Glucose Level 72 Calcium Level 8.6 Exam/Review of Systems Exam Vitals Vital Signs Date Temp Pulse Resp B/P (MAP) Pulse Ox O2 O2 Flow FiO2 Time Delivery Rate 06/14/18 Nasal 2 13:12 Cannula 06/14/18 98.4 60 18 119/65 94 02:00 (83) Intake and Output 06/13/18 06/13/18 06/14/18 1515:00 23:00 07:00 IntakeIntake Total 420 ml 470 ml BalanceBalance 420 ml 470 ml Results Results 24hrs Laboratory Tests Test 06/13/18 15:37 06/14/18 01:09 06/14/18 04:34 Platelet Func Collagen/Epinephrine 160 Platelet Function Collagen/ADP Hemoglobin 10.0 #L 10.2 L Hematocrit 29.7 #L 30.8 L White Blood Count 5.7 # Red Blood Count 3.28 #L Mean Corpuscular Volume 93.9 Mean Corpuscular Hemoglobin 31.1 Mean Corpuscular Hemoglobin Concent 33.1 Red Cell Distribution Width 16.4 H Platelet Count 99 L Mean Platelet Volume 9.6 Immature Granulocytes % 0.500 H Neutrophils % 77.4 H Lymphocytes % 10.9 L Monocytes % 8.4 Eosinophils % 2.1 Basophils % 0.7 Nucleated Red Blood Cells % 0.0 Immature Granulocytes # 0.030 Neutrophils # 4.4 Lymphocytes # 0.6 L Monocytes # 0.5 Eosinophils # 0.1 Basophils # 0.0 Nucleated Red Blood Cells # 0.0 Sodium Level 131 L Potassium Level 4.1 Chloride Level 105 Carbon Dioxide Level 22 Anion Gap 4 L Blood Urea Nitrogen 18 Creatinine 0.88 Est Glomerular Filtrat Rate mL/min Glucose Level 72 Calcium Level 8.6 Medications Medication Current Medications IV Flush (NS 3 ml) 3 ml PER PROTOCOL IV ; Start 05/28/18 at 19:00 Ondansetron HCl (Zofran Inj) 4 mg Q6H PRN IV NAUSEA/VOMITING; Start 05/28/18 at 19:00 Acetaminophen (Tylenol Tab) 650 mg Q6H PRN PO .PAIN 1-3 OR TEMP Last administered on 06/12/18at 18:23; Admin Dose 650 MG; Start 05/28/18 at 19:00 Acetaminophen/ Hydrocodone Bitart ([place] (5/325)) 1 tab Q6H PRN PO .MOD PAIN 4- 6; Start 05/28/18 at 19:00 Docusate Sodium (Colace) 100 mg Q12H PRN PO .CONSTIPATION Last administered on 06/07/18at 06:57; Admin Dose 100 MG; Start 05/28/18 at 19:00 Magnesium Hydroxide (Milk Of Mag) 30 ml DAILY PRN PO .CONSTIPATION Last administered on 06/06/18at 06:47; Admin Dose 30 ML; Start 05/28/18 at 19:00 Albuterol/ Ipratropium (Duoneb) 3 ml Q4H RESP THERAPY PRN HHN SHORTNESS OF BREATH; Start 05/28/18 at 19:00 Hydralazine HCl (Apresoline) 10 mg Q6H PRN IV ELEVATED BLOOD PRESSURE; Start 05/28/18 at 19:00 Nitroglycerin (Nitroglycerin (Sl Tab) 0.4 Mg) 1 tab Q5M PRN SL ANGINA; Start 05/28/18 at 19:00 Atorvastatin Calcium (Lipitor) 10 mg QHS PO Last administered on 06/13/18at 20:56; Admin Dose 10 MG; Start 05/28/18 at 21:00 Levothyroxine Sodium (Synthroid) 100 mcg BEFORE BREAKFAST PO Last administered on 06/14/18 07:42; Admin Dose 100 MCG; Start 05/29/18 at 07:00 Calcium Carbonate (Oyster Shell Calcium) 1.25 gm BID PO Last administered on 06/14/18 09:05; Admin Dose 1.25 GM; Start 05/28/18 at 21:00 Cyanocobalamin (Vitamin B12) 1,000 mcg DAILY PO Last administered on 06/09/18 10:20; Admin Dose 1,000 MCG; Start 05/29/18 at 09:00; Status Hold Multivitamins/ Minerals (Theragran-M) 1 tab DAILY PO Last administered on 06/14/18 09:05; Admin Dose 1 TAB; Start 05/29/18 at 09:00 Pantoprazole (Protonix Tab) 40 mg BID@06,18 PO Last administered on 06/14/18 07:42; Admin Dose 40 MG; Start 06/02/18 at 18:00 Polyethylene Glycol (Miralax) 17 gm DAILY PO Last administered on 06/14/18 09:08; Admin Dose 17 GM; Start 06/04/18 at 11:30 Carvedilol (Coreg) 6.25 mg BID PO Last administered on 06/14/18 09:06; Admin Dose 6.25 MG; Start 06/09/18 at 21:00 Sacubitril/ Valsartan (Entresto 24 Mg-26 Mg) 1 tab BID PO Last administered on 06/13/18 10:00; Admin Dose 1 TAB; Start 06/12/18 at 21:00; Status Hold LES SAUNDERS Jun 14, 2018 13:45
--- NOTE | 2018-06-14 13:48 | PN ---
Date/Time of Note Date/Time of Note DATE: 06/14/18 TIME: 13:44 Assessment/Plan VTE Prophylaxis Risk score (from Ns)>0 risk: 7 SCD applied (from Ns): Yes Pharmacological prophylaxis: NA/contraindicated Pharm contraindication: bleeding Lines/Catheters IV Catheter Type (from Nrsg): PICC Line Central line still needed: Yes (meds) Urinary Cath still in place: No Assessment/Plan Hospital Course Assessment: GI bleeding/hematochezia/melena. Likely right colon diverticular source EGD 05/29/2018 distal esophagitis/gastritis no active bleeding Colonoscopy 05/11/2018 sun-diverticulosis with evidence of recent bleeding Colonoscopy 06/10/18- Sun-diverticulosis, no active bleeding IR embolization -no bleeding found Anemia Anticoagulation- on hold Dementia A-fib CKD CHF Thrombocytopenia Plan: Transfer to tertiary center consider double balloon enteroscopy versus capsule endoscopy to assess for small bowel AVMs vs other Continue to monitor, no more procedures at this time per Dr. Blandon Monitor H&H - transfuse as needed Continue supportive measures. Patient seen in collaboration with Dr. Hendrickson/Barber Subjective: Course reviewed with nursing staff Patient interviewed and examined All labs, imaging and other results reviewed Ct enterography reviewed and copied below Pt with on-going bleeding- transfuse as needed PHYSICAL EXAMINATION: GENERAL: Alert & oriented x 3 SKIN: No lesions CHEST: Inspection within normal limits. CARDIOVASCULAR: Heart: Regular rate and rhythm RESPIRATORY: Lungs clear to auscultation GASTROINTESTINAL AND LIVER: Abdomen: Soft, non tenderness, non-distended, no hernias, no masses, no organomegaly, no ascites, no guarding, no rebound tenderness, normoactive bowel sounds. Rectal: Deferred. GENITOURINARY: Female genitalia within normal limits. EXTREMITIES: No cyanosis, clubbing or edema. [place] [id number] Radiology Main Line: [phone] DIAGNOSTIC IMAGING REPORT Patient: JOSUÉ JOHNSON : 1935 Age: 82 Sex: F MR #: [id number] DOS: 06/13/18 0600 Ordering MD: LES SAUNDERS [place] [facility] [place] [facility]: CT angiogram and enterography with and without intravenous contrast. CLINICAL INDICATION: GI bleeding . TECHNIQUE: CT angiogram and enterography scan of the abdomen and pelvis with and without intravenous contrast was performed on a multi-detector high- resolution CT scanner. The patient was scanned before and following the uncomplicated intravenous administration of 120 cc of Omnipaque 350 contrast. Coronal and sagittal reformatted images were obtained from the axial source images. CTDIvol 53.21 mGy, and DLP 2906.64 mGy.cm. Volumetric acquisition of the abdomen and pelvis was performed following the enteric administration of Volumen contrast in order to optimize bowel distension and uncomplicated intravenous administration of 100 cc of Omnipaque 300. One or more of the following dose reduction techniques were used: - Automated exposure control. - Adjustment of the mA and/or kV according to patient size. - Use of iterative reconstruction technique. COMPARISON: XA SC 06/11/2018; NM 06/09/2018; CT 05/30/2018 FINDINGS: Lower thorax: Increased moderate bilateral pleural effusions with adjacent atel ectasis / consolidation of the bilateral lung bases. Stable to slight increased moderate pericardial effusion. Prosthetic aortic valve. Partially visualized cardiac pacer wire in the right ventricle. There are coronary artery calcifications. Liver: Stable scattered sub-centimeter hypoattenuating lesions in the liver which are too small to characterize . Portal vein is patent. Biliary: Postsurgical changes of cholecystectomy. Mild prominence of the bile ducts, likely related to post-cholecystectomy state. Pancreas: Stable atrophy of the pancreas. Spleen: Normal. Adrenal Glands: Normal. Urinary: Stable atrophy and cortical scarring of the bilateral kidneys, worse on the left. Stable bilateral renal cysts. No hydronephrosis. The ureters and bladder, as visualized, are unremarkable. Gastrointestinal: There is thickening of the distal stomach. There is mild thickening of the cecum and proximal ascending colon with mild adjacent stranding. Mild layering hyperdensity within the ascending colon may represent a contrast versus ingested material.. Sigmoid diverticulosis without evidence of diverticulitis. Lymph nodes: No enlarged abdominal or pelvic lymph nodes. Vascular: Extensive atherosclerotic calcifications of the aorta and major branches. Atherosclerotic calcifications at the ostium of the celiac artery causes mild stenosis. There is ectasia of the right common iliac artery measuring 1.6 cm, with penetrating ulcer. Peritoneum/mesentery: Trace free fluid in the pelvis. No free air. Reproductive organs: Normal. Musculoskeletal: Degenerative changes of the spine. IMPRESSION: 1. Mild thickening and adjacent stranding of the cecum and ascending colon. Small layering mild hyperdensity within the cecum and ascending colon may represent contrast versus ingested contents. However, given findings of recent prior nuclear medicine bleeding scan, findings are concerning for persistent gastrointestinal bleeding. 2. Mild thickening of the distal stomach may be due to underdistension or gastritis. 3. Extensive atherosclerotic vascular calcifications. 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 4. Interval increased moderate bilateral pleural effusions, with adjacent atelectasis / consolidation. 5. Moderate pericardial effusion. Result Diagram: 06/14/18 0434 06/14/184 Results 24hrs Laboratory Tests Test 06/13/18 15:37 06/14/18 01:09 06/14/18 04:34 Platelet Func Collagen/Epinephrine 160 Platelet Function Collagen/ADP Hemoglobin 10.0 #L 10.2 L Hematocrit 29.7 #L 30.8 L White Blood Count 5.7 # Red Blood Count 3.28 #L Mean Corpuscular Volume 93.9 Mean Corpuscular Hemoglobin 31.1 Mean Corpuscular Hemoglobin Concent 33.1 Red Cell Distribution Width 16.4 H Platelet Count 99 L Mean Platelet Volume 9.6 Immature Granulocytes % 0.500 H Neutrophils % 77.4 H Lymphocytes % 10.9 L Monocytes % 8.4 Eosinophils % 2.1 Basophils % 0.7 Nucleated Red Blood Cells % 0.0 Immature Granulocytes # 0.030 Neutrophils # 4.4 Lymphocytes # 0.6 L Monocytes # 0.5 Eosinophils # 0.1 Basophils # 0.0 Nucleated Red Blood Cells # 0.0 Sodium Level 131 L Potassium Level 4.1 Chloride Level 105 Carbon Dioxide Level 22 Anion Gap 4 L Blood Urea Nitrogen 18 Creatinine 0.88 Est Glomerular Filtrat Rate mL/min Glucose Level 72 Calcium Level 8.6 Exam/Review of Systems Exam Vitals Vital Signs Date Temp Pulse Resp B/P (MAP) Pulse Ox O2 O2 Flow FiO2 Time Delivery Rate 06/14/18 Nasal 2 13:12 Cannula 06/14/18 98.4 60 18 119/65 94 02:00 (83) Intake and Output 06/13/18 06/13/18 06/14/18 1515:00 23:00 07:00 IntakeIntake Total 420 ml 470 ml BalanceBalance 420 ml 470 ml Results Results 24hrs Laboratory Tests Test 06/13/18 15:37 06/14/18 01:09 06/14/18 04:34 Platelet Func Collagen/Epinephrine 160 Platelet Function Collagen/ADP Hemoglobin 10.0 #L 10.2 L Hematocrit 29.7 #L 30.8 L White Blood Count 5.7 # Red Blood Count 3.28 #L Mean Corpuscular Volume 93.9 Mean Corpuscular Hemoglobin 31.1 Mean Corpuscular Hemoglobin Concent 33.1 Red Cell Distribution Width 16.4 H Platelet Count 99 L Mean Platelet Volume 9.6 Immature Granulocytes % 0.500 H Neutrophils % 77.4 H Lymphocytes % 10.9 L Monocytes % 8.4 Eosinophils % 2.1 Basophils % 0.7 Nucleated Red Blood Cells % 0.0 Immature Granulocytes # 0.030 Neutrophils # 4.4 Lymphocytes # 0.6 L Monocytes # 0.5 Eosinophils # 0.1 Basophils # 0.0 Nucleated Red Blood Cells # 0.0 Sodium Level 131 L Potassium Level 4.1 Chloride Level 105 Carbon Dioxide Level 22 Anion Gap 4 L Blood Urea Nitrogen 18 Creatinine 0.88 Est Glomerular Filtrat Rate mL/min Glucose Level 72 Calcium Level 8.6 Medications Medication Current Medications IV Flush (NS 3 ml) 3 ml PER PROTOCOL IV ; Start 05/28/18 at 19:00 Ondansetron HCl (Zofran Inj) 4 mg Q6H PRN IV NAUSEA/VOMITING; Start 05/28/18 at 19:00 Acetaminophen (Tylenol Tab) 650 mg Q6H PRN PO .PAIN 1-3 OR TEMP Last a dministered on 06/12/18at 18:23; Admin Dose 650 MG; Start 05/28/18 at 19:00 Acetaminophen/ Hydrocodone Bitart ([place] (5/325)) 1 tab Q6H PRN PO .MOD PAIN 4- 6; Start 05/28/18 at 19:00 Docusate Sodium (Colace) 100 mg Q12H PRN PO .CONSTIPATION Last administered on 06/07/18 06:57; Admin Dose 100 MG; Start 05/28/18 at 19:00 Magnesium Hydroxide (Milk Of Mag) 30 ml DAILY PRN PO .CONSTIPATION Last admin istered on 06/06/18 06:47; Admin Dose 30 ML; Start 05/28/18 at 19:00 Albuterol/ Ipratropium (Duoneb) 3 ml Q4H RESP THERAPY PRN HHN SHORTNESS OF BREATH; Start 05/28/18 at 19:00 Hydralazine HCl (Apresoline) 10 mg Q6H PRN IV ELEVATED BLOOD PRESSURE; Start 05/28/18 at 19:00 Nitroglycerin (Nitroglycerin (Sl Tab) 0.4 Mg) 1 tab Q5M PRN SL ANGINA; Start 05/28/18 at 19:00 Atorvastatin Calcium (Lipitor) 10 mg QHS PO Last administered on 06/13/18 20:56; Admin Dose 10 MG; Start 05/28/18 at 21:00 Levothyroxine Sodium (Synthroid) 100 mcg BEFORE BREAKFAST PO Last administered on 06/14/18 07:42; Admin Dose 100 MCG; Start 05/29/18 at 07:00 Calcium Carbonate (Oyster Shell Calcium) 1.25 gm BID PO Last administered on 06/14/18 09:05; Admin Dose 1.25 GM; Start 05/28/18 at 21:00 Cyanocobalamin (Vitamin B12) 1,000 mcg DAILY PO Last administered on 06/09/18 10:20; Admin Dose 1,000 MCG; Start 05/29/18 at 09:00; Status Hold Multivitamins/ Minerals (Theragran-M) 1 tab DAILY PO Last administered on 06/14/18 09:05; Admin Dose 1 TAB; Start 05/29/18 at 09:00 Pantoprazole (Protonix Tab) 40 mg BID@,18 PO Last administered on 06/14/18 07:42; Admin Dose 40 MG; Start 06/02/18 at 18:00 Polyethylene Glycol (Miralax) 17 gm DAILY PO Last administered on 06/14/18 09:08; Admin Dose 17 GM; Start 06/04/18 at 11:30 Carvedilol (Coreg) 6.25 mg BID PO Last administered on 06/14/18 09:06; Admin Dose 6.25 MG; Start 06/09/18 at 21:00 Sacubitril/ Valsartan (Entresto 24 Mg-26 Mg) 1 tab BID PO Last administered on 06/13/18 10:00; Admin Dose 1 TAB; Start 06/12/18 at 21:00 JERROD MORGAN Jun 14, 2018 13:48
[2018-06-14 14:00] VITALS: BP 126/68; PULSE 66; RESP 18
--- NOTE | 2018-06-14 14:52 | CONS ---
Consult Date/Type/Reason Admit Date/Time May 28, 2018 at 19:26 Initial Consult Date 05/29/18 Type of Consultation: cv Reason for Consultation Interventional cardiology follow-up progress note Subjective: Discussed with staff and telemetry was reviewed. Patient is off tele now Discussed with the patient's familyb including daughters at bedside + more bleeding per family report She denies any chest pain or pressure to me has any palpitation to me. s/p colo again on 06/10 Objective: General: Elderly female no acute distress HEENT: NC/AT. pupils are equal. round. NECK: . no stridor. CV: RRR. systolic murmur; no gallop or rubs. PULM: no wheezing or rhonchi. GI: SOFT, NT, ND, no rebound or guarding Extremity: trace B/L LE edema. no clubbing. neuro: awake and alert, Psych: calm and pleasant rectal: deferred Abdominal/pelvic CT done May 30, 2018 shows: No evidence of urolithiasis, obstructive uropathy or diverticulitis. Diverticulosis. Nonvisualization appendix. No bowel mass or obstruction is seen. Cholecystectomy with presumed physiologic intra and extrahepatic bile duct dilatation. Correlation with serum bilirubin levels could be performed if clinically indicated. Aortic valve replacement. Cardiomegaly. Small pericardial effusion. Vascular calcifications. Senescent degenerative changes spine. Tiny right pleural effusion. Requesting Provider: SHIRA ANTOINE MD Date/Time of Note DATE: 06/14/18 TIME: 14:51 Objective Vitals Vital Signs Date Temp Pulse Resp B/P (MAP) Pulse Ox O2 O2 Flow FiO2 Time Delivery Rate 06/14/18 Nasal 2 13:12 Cannula 06/14/18 98.4 60 18 119/65 94 02:00 (83) Intake and Output 06/13/18 06/13/18 06/14/18 1515:00 23:00 07:00 IntakeIntake Total 420 ml 470 ml BalanceBalance 420 ml 470 ml Results/Medications Result Diagram: 06/14/18 0434 06/14/18 0434 Results 24 hrs Laboratory Tests Test 06/13/18 15:37 06/14/18 01:09 06/14/18 04:34 Platelet Func Collagen/Epinephrine 160 Platelet Function Collagen/ADP Hemoglobin 10.0 #L 10.2 L Hematocrit 29.7 #L 30.8 L White Blood Count 5.7 # Red Blood Count 3.28 #L Mean Corpuscular Volume 93.9 Mean Corpuscular Hemoglobin 31.1 Mean Corpuscular Hemoglobin Concent 33.1 Red Cell Distribution Width 16.4 H Platelet Count 99 L Mean Platelet Volume 9.6 Immature Granulocytes % 0.500 H Neutrophils % 77.4 H Lymphocytes % 10.9 L Monocytes % 8.4 Eosinophils % 2.1 Basophils % 0.7 Nucleated Red Blood Cells % 0.0 Immature Granulocytes # 0.030 Neutrophils # 4.4 Lymphocytes # 0.6 L Monocytes # 0.5 Eosinophils # 0.1 Basophils # 0.0 Nucleated Red Blood Cells # 0.0 Sodium Level 131 L Potassium Level 4.1 Chloride Level 105 Carbon Dioxide Level 22 Anion Gap 4 L Blood Urea Nitrogen 18 Creatinine 0.88 Est Glomerular Filtrat Rate mL/min Glucose Level 72 Calcium Level 8.6 Home Meds Reported Medications Cyanocobalamin (Vitamin B-12) (Vitamin B-12) 1,000 Mcg Tab.subl, 1000 MCG SL DAILY 05/28/18 Multivitamin/Iron/Folic Acid (Centrum Adults Tablet) 1 Each Tablet, 1 EACH PO DAILY, TAB 05/28/18 Calcium Carbonate* (Calcium Carbonate*) 600 MG Ca Tab, 600 MG PO BID, TAB 05/28/18 Omeprazole* (Omeprazole*) 40 Mg Capsule.dr, 40 MG PO DAILY, #30 CAP 05/28/18 Atorvastatin Calcium (Atorvastatin Calcium) 10 Mg Tablet, 10 MG PO QHS, #30 TAB 05/28/18 Apixaban* (Eliquis*) 2.5 Mg Tablet, 2.5 MG PO DAILY, TAB 05/28/18 Sacubitril/Valsartan (Entresto 49 mg-51 mg Tablet) 1 Each Tablet, 1 EACH PO DAILY, TAB 05/28/18 Carvedilol* (Carvedilol*) 6.25 Mg Tablet, 6.25 MG PO DAILY, #60 TAB 05/28/18 Furosemide* (Furosemide*) 40 Mg Tablet, 40 MG PO DAILY, TAB 05/28/18 Spironolactone* (Aldactone*) 25 Mg Tablet, 25 MG PO DAILY, #30 TAB 05/28/18 Levothyroxine Sodium* (Levothyroxine Sodium*) 100 Mcg Tablet, 100 MCG PO BEFORE BREAKFAST, #30 TAB 05/28/18 Medications Current Medications IV Flush (NS 3 ml) 3 ml PER PROTOCOL IV ; Start 05/28/18 at 19:00 Ondansetron HCl (Zofran Inj) 4 mg Q6H PRN IV NAUSEA/VOMITING; Start 05/28/18 at 19:00 Acetaminophen (Tylenol Tab) 650 mg Q6H PRN PO .PAIN 1-3 OR TEMP Last administered on 06/12/18 18:23; Admin Dose 650 MG; Start 05/28/18 at 19:00 Acetaminophen/ Hydrocodone Bitart ([place] (5/325)) 1 tab Q6H PRN PO .MOD PAIN 4- 6; Start 05/28/18 at 19:00 Docusate Sodium (Colace) 100 mg Q12H PRN PO .CONSTIPATION Last administered on 06/07/18 06:57; Admin Dose 100 MG; Start 05/28/18 at 19:00 Magnesium Hydroxide (Milk Of Mag) 30 ml DAILY PRN PO .CONSTIPATION Last administered on 06/06/18 06:47; Admin Dose 30 ML; Start 05/28/18 at 19:00 Albuterol/ Ipratropium (Duoneb) 3 ml Q4H RESP THERAPY PRN HHN SHORTNESS OF BREATH; Start 05/28/18 at 19:00 Hydralazine HCl (Apresoline) 10 mg Q6H PRN IV ELEVATED BLOOD PRESSURE; Start 05/28/18 at 19:00 Nitroglycerin (Nitroglycerin (Sl Tab) 0.4 Mg) 1 tab Q5M PRN SL ANGINA; Start 05/28/18 at 19:00 Atorvastatin Calcium (Lipitor) 10 mg QHS PO Last administered on 06/13/18 20:56; Admin Dose 10 MG; Start 05/28/18 at 21:00 Levothyroxine Sodium (Synthroid) 100 mcg BEFORE BREAKFAST PO Last administered on 06/14/18 07:42; Admin Dose 100 MCG; Start 05/29/18 at 07:00 Calcium Carbonate (Oyster Shell Calcium) 1.25 gm BID PO Last administered on 06/14/18 09:05; Admin Dose 1.25 GM; Start 05/28/18 at 21:00 Cyanocobalamin (Vitamin B12) 1,000 mcg DAILY PO Last administered on 06/09/18 10:20; Admin Dose 1,000 MCG; Start 05/29/18 at 09:00; Status Hold Multivitamins/ Minerals (Theragran-M) 1 tab DAILY PO Last administered on 06/14/18 09:05; Admin Dose 1 TAB; Start 05/29/18 at 09:00 Pantoprazole (Protonix Tab) 40 mg BID@06,18 PO Last administered on 06/14/18 07:42; Admin Dose 40 MG; Start 06/02/18 at 18:00 Polyethylene Glycol (Miralax) 17 gm DAILY PO Last administered on 06/14/18 09:08; Admin Dose 17 GM; Start 06/04/18 at 11:30 Carvedilol (Coreg) 6.25 mg BID PO Last administered on 06/14/18 09:06; Admin Dose 6.25 MG; Start 06/09/18 at 21:00 Sacubitril/ Valsartan (Entresto 24 Mg-26 Mg) 1 tab BID PO Last administered on 06/13/18 10:00; Admin Dose 1 TAB; Start 06/12/18 at 21:00 Assessment/Plan Hospital Course (Demo Recall) 1. Recurrent lower GI bleed on anticoagulation: Currently off Eliquis 2. 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 Severe cardiomyopathy 4. Sick sinus syndrome with permanent pacemaker 5. History of aortic stenosis status post transcutaneous aortic valve replacement 6 permissive hypertension 7. Chronic kidney disease 8. Anemia secondary to GI bleeding 9. anemia: s/p transfusions 10. Pericardial effusion seen on CT scan Recommendations: Will cont coreg and inc as tolerated Transfusion as needed follow-up with GI recommendations regarding bleeding and anemia will resume entresto avoid fluid overload awaiting repeat echocardiogram awaiting transfer to [facility] for higher level of care Thank you for his referral. We will follow-up with you KAYLAH BAXTER MD [facility] KAYLAH BAXTER MD Jun 14, 2018 14:52
--- NOTE | 2018-06-14 17:52 | RADRPT ---
Echocardiogram Report Patient Name: JOSUÉ JOHNSONPatient ID: [id number] : 1935 (82y 7m)Study Date: 06/14/2018 8:00:23 AM Gender: FAccession #: [id number] [place] [facility] [place] Ref.Physician: KAYLAH GARCIA Height(Cm): 160 BSA: 1.8Weight(Kg): 72.6 Quality: AdequateAccount #: Procedures: Echocardiographic Report: Transthoracic echocardiogram with complete 2D, M-Mode, and doppler examination. Indications: Cardiomyopathy, and Congestive Heart Failure. Measurements: 2D/M Mode Doppler Measurement Value Normal Range Measurement Value Normal Range LVIDd 2D 4.4 [ 3.8 - 5.2 ] cm KELLEN VTI 1.1 [ 2.0 - 4.0 ] cm2 LVIDs 2D 2.8 [ 2.2 - 3.5 ] cm AV Mean Theron 1.2 [ 70.0 - 90.0 ] cm/sec LVPWd 2D 1.1 [ 0.6 - 0.9 ] cm AV Mean PG 7.0 [ 2.0 - 4.0 ] mmHg IVSd 2D 0.9 [ 0.6 - 0.9 ] cm AV VTI 38.3 cm EF 2D 65.3 [ 54.0 - 74.0 ] percent LVOT Mean Theron 0.3 [ 60.0 - 80.0 ] cm/sec LA Dimen 2D 4.0 [ 2.7 - 3.8 ] cm LVOT Mean PG 1.0 [ 1.0 - 3.0 ] mmHg LVOT Diam 2.0 [ 2.1 - 2.5 ] cm LVOT Peak Theron 0.5 [ 70.0 - 110.0 ] cm/se c LVOT Peak PG 1.0 [ 2.0 - 6.0 ] mmHg LVOT VTI 13.5 [ 20.0 - 30.0 ] cm MV PHT 181.0 [ 20.0 - 100.0 ] msec MV Peak Theron 1.8 [ 60.0 - 130.0 ] cm/se c MV Peak PG 13.0 [ 1.0 - 10.0 ] mmHg MV Mean Theron 1.0 cm/sec MV Mean PG 5.0 mmHg MV Decel [place] 3 MV PHT Peak Theron 1.8 cm/sec MV VTI 60.4 cm MVA PHT 1.2 [ 2.0 - 4.0 ] cm2 MVA VTI 0.7 cm TR Peak Theron 3.4 [ 100.0 - 280.0 ] cm/s ec TR Peak PG 46.0 mmHg PV Peak Theron 0.7 [ 40.0 - 80.0 ] cm/sec PV Peak PG 2.0 mmHg RVSP 56.0 [ 10.0 - 36.0 ] mmHg RA Pressure 10.0 mmHg Findings: Left Ventricle: Lower limits of normal systolic function. Normal left ventricular cavity size. Normal left ventricular wall thickness. Paradoxical septal motion consistent with RV pacemaker. Ejection fraction is visually estimated at 35 %. Tissue Doppler/Mitral Doppler indices are indeterminate in this study due to the presence of . Multiple segmental wall motion abnormalities. Right Ventricle: Normal right ventricular size. Normal right ventricular systolic function. Left Atrium: There is severe enlargement of left atrium. Right Atrium: There is moderate enlargement of right atrium. Atrial Septum: Normal atrial septum. Mitral Valve: Mitral valve leaflets appear moderately thickened. Moderate mitral leaflet calcification, there is also mild chordal calcification noted. Mild mitral valve regurgitation. Moderate mitral stenosis. Mitral valve Max Velocity 1.80 m/sec. MaxPG 13.00 mmHg. MeanPG 5.00 mmHg. Mitral Valve Area by PHT 1.20 cm2. Aortic Valve: Aortic valve Max velocity 1.90 m/sec. Max PG 14.00 mmHg. Mean PG 7.00 mmHg. Aortic valve area 1.10 cm2. Mild aortic valve regurgitation. Tricuspid Valve: Normal appearance of the tricuspid valve. Estimated peak PA systolic pressure 56 mmHg. There is moderate tricuspid regurgitation. Pulmonic Valve: Normal pulmonic valve appearance. There is trace pulmonic regurgitation. Pericardium: Small pericardial effusion. Pleural effusion seen bilateral. Aorta: Normal aortic root. IVC: Normal size and normal respiratory collapse consistent with normal right atrial pressure. Pulmonary Artery: Normal pulmonary artery size. Conclusions: There is severe enlargement of left atrium. There is moderate enlargement of right atrium. Lower limits of normal systolic function. Normal left ventricular cavity size. Normal left ventricular wall thickness. Paradoxical septal motion consistent with RV pacemaker. Ejection fraction is visually estimated at 35 %. Tissue Doppler/Mitral Doppler indices are indeterminate in this study due to the presence of . Multiple segmental wall motion abnormalities. Aortic valve Max velocity 1.90 m/sec. Max PG 14.00 mmHg. Mean PG 7.00 mmHg. Aortic valve area 1.10 cm2. Mild aortic valve regurgitation. Mitral valve leaflets appear moderately thickened. Moderate mitral leaflet calcification, there is also mild chordal calcification noted. Mild mitral valve regurgitation. Moderate mitral stenosis. Mitral valve Max Velocity 1.80 m/sec. MaxPG 13.00 mmHg. MeanPG 5.00 mmHg. Mitral Valve Area by PHT 1.20 cm2. Normal appearance of the tricuspid valve. Estimated peak PA systolic pressure 56 mmHg. There is moderate tricuspid regurgitation. Small pericardial effusion. Pleural effusion seen bilateral. Electronically Signed By: Kaylah Garcia 2018-06-14 17:51:29 PDT
[2018-06-14 20:04] VITALS: BP 124/62; PULSE 60; RESP 18
[2018-06-14] MEDS: ATORVASTATIN 10 MG TAB PO SCH (20:28)
[2018-06-14] MEDS: SACUBITRIL/VALSARTAN (24mg-26mg) TABLET PO SCH (20:29)
[2018-06-14] MEDS: LEVOFLOXACIN 500 MG TAB PO SCH (23:54)
[2018-06-15 02:09] VITALS: BP 110/56; PULSE 60; RESP 18
[2018-06-15] MEDS: PANTOPRAZOLE (EC) 40 MG TAB PO SCH ×2 (06:36→17:47)
[2018-06-15] MEDS: LEVOFLOXACIN 500 MG TAB PO SCH (06:36)
[2018-06-15] MEDS: LEVOTHYROXINE 100 MCG TAB PO SCH (06:36)
[2018-06-15 08:08] VITALS: BP 114/60; PULSE 60; RESP 18
--- NOTE | 2018-06-15 09:38 | CONS ---
Assessment/Plan Assessment/Plan Hospital Course (Demo Recall) # Thrombocytopenia- Platelet are stable at 113 K today -she had normal plt count of 201K as an outpt so the thrombocytopenia is a new development thrombocytopenia is likely secondary to consumption from the brisk GI Bleed. no DIC or TTP -I do not feel that DDAVP will add much to her situation. THis was discussed with her daughter who is at the bedside # Diverticular GI bleed s/p recent scopes with EGD 05/29/2018 distal esophagitis/gastritis no active bleeding Colonoscopy 05/11/2018 sun-diverticulosis with evidence of recent bleeding Nuclear medicine bleeding scan positive -pt to transfer to higher level of care given we are not able to control this lower GI bleed. PT will likely need surgery # Anemia- due to above, Hgb 10.2 today; SP 2 units PRBC transfuse to keep hgb > 7 Plan to transfer patient [facility] for higher level of care. Consultation Date/Type/Reason Admit Date/Time May 28, 2018 at 19:26 Initial Consult Date 06/04/18 Type of Consult Hematology Reason for Consultation anemia/ thrombocytopenia Requesting Provider: SHIRA ANTOINE MD Date/Time of Note DATE: 06/15/18 TIME: 09:34 24 HR Interval Summary Free Text/Dictation pt continues to have melena Exam/Review of Systems Exam Vitals Vital Signs Date Temp Pulse Resp B/P (MAP) Pulse Ox O2 O2 Flow FiO2 Time Delivery Rate 06/15/18 98.2 60 18 114/60 98 Room Air 08:08 (78) 06/14/18 2 13:12 Intake and Output 06/14/18 06/14/18 06/15/18 1515:00 23:00 07:00 IntakeIntake Total 200 ml OutputOutput Total 400 ml 350 ml 300 ml BalanceBalance -200 ml -350 ml -300 ml Constitutional: alert, oriented Psych: no complaints Head: normocephalic Eyes: nl conjunctiva ENMT: nl external ears & nose Neck: supple Respiratory: clear to auscultation Cardiovascular: regular rate and rhythm Gastrointestinal: soft Musculoskeletal: nl extremities to inspection Results Result Diagram: 06/15/18 0501 06/15/18 0500 Results 24hrs Laboratory Tests Test 06/14/18 18:00 06/14/18 18:39 06/15/18 05:00 06/15/18 05:01 Urine Color YELLOW Urine Clarity CLOUDY A Urine pH 5.0 Urine Specific 1.027 [place] Urine Ketones NEGATIVE Urine Nitrite NEGATIVE Urine Bilirubin NEGATIVE Urine Urobilinogen NEGATIVE Urine Leukocyte 3+ H Esterase Urine Microscopic 11 H RBC Urine Microscopic 139 H WBC Urine Squamous MODERATE Epithelial Cells Urine Bacteria FEW A Urine Mucus FEW A Urine Hemoglobin 1+ H Urine Glucose NEGATIVE Urine Total NEGATIVE Protein Hemoglobin 10.1 L 9.7 L Hematocrit 30.8 L 29.4 L Sodium Level 134 L Potassium Level 4.4 Chloride Level 107 Carbon Dioxide 25 Level Anion Gap 2 L Blood Urea 21 H Nitrogen Creatinine 1.01 H Est Glomerular Filtrat Rate mL/min Glucose Level 79 Calcium Level 9.0 White Blood Count 7.0 # Red Blood Count 3.13 L Mean Corpuscular 93.9 Volume Mean Corpuscular 31.0 Hemoglobin Mean Corpuscular 33.0 Hemoglobin Concent Red Cell 17.1 H Distribution Width Platelet Count 113 L Mean Platelet 9.4 Volume Immature 0.400 Granulocytes % Neutrophils % 81.9 H Lymphocytes % 7.0 L Monocytes % 7.4 Eosinophils % 2.3 Basophils % 1.0 Nucleated Red 0.0 Blood Cells % Immature 0.030 Granulocytes # Neutrophils # 5.7 Lymphocytes # 0.5 L Monocytes # 0.5 Eosinophils # 0.2 Basophils # 0.1 Nucleated Red 0.0 Blood Cells # Phosphorus Level 3.6 Magnesium Level 2.0 Test 06/15/18 06:22 Lab Scanned BLOOD TRANSFUSION Report Medications Medication Current Medications IV Flush (NS 3 ml) 3 ml PER PROTOCOL IV ; Start 05/28/18 at 19:00 Ondansetron HCl (Zofran Inj) 4 mg Q6H PRN IV NAUSEA/VOMITING; Start 05/28/18 at 19:00 Acetaminophen (Tylenol Tab) 650 mg Q6H PRN PO .PAIN 1-3 OR TEMP Last administered on 06/12/18at 18:23; Admin Dose 650 MG; Start 05/28/18 at 19:00 Acetaminophen/ Hydrocodone Bitart ([place] (5/325)) 1 tab Q6H PRN PO .MOD PAIN 4- 6; Start 05/28/18 at 19:00 Docusate Sodium (Colace) 100 mg Q12H PRN PO .CONSTIPATION Last administered on 06/07/18at 06:57; Admin Dose 100 MG; Start 05/28/18 at 19:00 Magnesium Hydroxide (Milk Of Mag) 30 ml DAILY PRN PO .CONSTIPATION Last administered on 06/06/18 06:47; Admin Dose 30 ML; Start 05/28/18 at 19:00 Albuterol/ Ipratropium (Duoneb) 3 ml Q4H RESP THERAPY PRN HHN SHORTNESS OF BR EATH; Start 05/28/18 at 19:00 Hydralazine HCl (Apresoline) 10 mg Q6H PRN IV ELEVATED BLOOD PRESSURE; Start 05/28/18 at 19:00 Nitroglycerin (Nitroglycerin (Sl Tab) 0.4 Mg) 1 tab Q5M PRN SL ANGINA; Start 05/28/18 at 19:00 Atorvastatin Calcium (Lipitor) 10 mg QHS PO Last administered on 06/14/18 20 :28; Admin Dose 10 MG; Start 05/28/18 at 21:00 Levothyroxine Sodium (Synthroid) 100 mcg BEFORE BREAKFAST PO Last administered on 06/15/18 06:36; Admin Dose 100 MCG; Start 05/29/18 at 07:00 Calcium Carbonate (Oyster Shell Calcium) 1.25 gm BID PO Last administered on 06/14/18 20:29; Admin Dose 1.25 GM; Start 05/28/18 at 21:00 Cyanocobalamin (Vitamin B12) 1,000 mcg DAILY PO Last administered on 06/09/18 10:20; Admin Dose 1,000 MCG; Start 05/29/18 at 09:00; Status Hold Multivitamins/ Minerals (Theragran-M) 1 tab DAILY PO Last administered on 06/14/18 09:05; Admin Dose 1 TAB; Start 05/29/18 at 09:00 Pantoprazole (Protonix Tab) 40 mg BID@,18 PO Last administered on 06/15/18 06:36; Admin Dose 40 MG; Start 06/02/18 at 18:00 Polyethylene Glycol (Miralax) 17 gm DAILY PO Last administered on 06/14/18 09:08; Admin Dose 17 GM; Start 06/04/18 at 11:30 Carvedilol (Coreg) 6.25 mg BID PO Last administered on 06/14/18 20:29; Admin Dose 6.25 MG; Start 06/09/18 at 21:00 Sacubitril/ Valsartan (Entresto 24 Mg-26 Mg) 1 tab BID PO Last administered on 06/14/18at 20:29; Admin Dose 1 TAB; Start 06/12/18 at 21:00 Levofloxacin (Levaquin) 500 mg DAILY@06 PO Last administered on 06/15/18at 06:36; Admin Dose 500 MG; Start 06/14/18 at 23:30; Stop 06/18/18 at 23:55 CHARITY OG M.D. Jun 15, 2018 09:38
[2018-06-15] MEDS: MULTIVITAMINS/MINERALS TAB PO SCH (09:46)
[2018-06-15] MEDS: SACUBITRIL/VALSARTAN (24mg-26mg) TABLET PO SCH ×2 (09:46→21:45)
[2018-06-15] MEDS: POLYETHYLENE GLYCOL 17 GM PACKET PO SCH (09:46)
[2018-06-15] MEDS: BALSAM PERU/CASTOR OIL 60 GM TUBE TOP SCH ×2 (09:47→21:45)
[2018-06-15] MEDS: CALCIUM CARBONATE 1.25 GM TAB PO SCH ×2 (09:47→21:45)
--- NOTE | 2018-06-15 09:57 | PN ---
DATE: 06/15/2018 SUBJECTIVE: The patient is stable, no events overnight. No hemoptysis or hematemesis. No active bl eeding noted last night. OBJECTIVE: VITAL SIGNS: Blood pressure is 114/60, respirations 18, pulse 60, temperature 98.2. HEENT: Head is normocephalic. NECK: Supple. HEART: Regular rate. LUNGS: Show diminished breath sounds at the base. ABDOMEN: Soft, nontender to palpation without rebound or guarding. EXTREMITIES: Negative for clubbing, cyanosis, no edema. DERMATOLOGIC: No rashes. MUSCULOSKELETAL: No joint effusion. NEUROLOGIC: No change in exam. MEDICATIONS: Reviewed. LABORATORY DATA: From 06/15/2018 was reviewed. ASSESSMENT AND PLAN: 1. Nonoliguric acute kidney injury on top of chronic kidney disease. Etiology of acute kidney injur y is secondary to hemodynamics. The patient's renal function is stabilized. There was no evidence o f contrast-associated nephropathy. Continue to monitor. 2. Chronic kidney disease. The patient's renal function is stabilized. Continue current treatment plan, supportive care, continue disease factor modification. 3. Mild hypernatremia. Continue to monitor and limit free water intake. 4. Mineral bone disorder. Monitor hemoglobin and hematocrit levels. 5. Anemia with active GI bleeding. The patient is status post angiogram, which was negative. [facility] ionable ovarian lesion abutting to cecum as a potential source. The patient is pending [facility]. Continue to monitor. 6. Atrial fibrillation. Continue medical management. 7. Congestive heart failure. Continue current treatment plan. 8. Hypothyroidism. Continue Synthroid. 9. History of dementia. 10. Dyslipidemia. Continue statin therapy. Dictated By: CATRACHO PALENCIA DO NR/NTS Conf#: [id number] DID#: [id number] CC: SHIRA ANTOINE MD; LES SAUNDERS; JO SANCHEZ MD;*End*
[2018-06-15 14:11] VITALS: BP 94/50; PULSE 59; RESP 18
--- NOTE | 2018-06-15 17:17 | CONS ---
Consult Date/Type/Reason Admit Date/Time May 28, 2018 at 19:26 Initial Consult Date 05/29/18 Type of Consultation: cv Requesting Provider: SHIRA ANTOINE MD Date/Time of Note DATE: 06/15/18 TIME: 17:14 Subjective Interventional cardiology follow-up progress note Subjective: Discussed with staff and telemetry was reviewed. Patient is off tele now Discussed with the patient's family including daughters at bedside + more bleeding per family report with [facility] She denies any chest pain or pressure to me has any palpitation to me. s/p colo again on 06/10 Objective: General: Elderly female no acute distress HEENT: NC/AT. pupils are equal. round. NECK: . no stridor. CV: RRR. systolic murmur; no gallop or rubs. PULM: no wheezing or rhonchi. GI: SOFT, NT, ND, no rebound or guarding Extremity: trace B/L LE edema. no clubbing. neuro: awake and alert, Psych: calm and pleasant rectal: deferred Abdominal/pelvic CT done May 30, 2018 shows: No evidence of urolithiasis, obstructive uropathy or diverticulitis. Diverticulosis. Nonvisualization appendix. No bowel mass or obstruction is seen. Cholecystectomy with presumed physiologic intra and extrahepatic bile duct dilatation. Correlation with serum bilirubin levels could be performed if clinically indicated. Aortic valve replacement. Cardiomegaly. Small pericardial effusion. Vascular calcifications. Senescent degenerative changes spine. Tiny right pleural effusion. Objective Vitals Vital Signs Date Temp Pulse Resp B/P (MAP) Pulse Ox O2 O2 Flow FiO2 Time Delivery Rate 06/15/18 96.2 59 18 94/50 (65) 97 14:11 06/15/18 Room Air 08:08 06/14/18 2 13:12 Intake and Output 06/14/18 06/14/18 06/15/18 1515:00 23:00 07:00 IntakeIntake Total 200 ml OutputOutput Total 400 ml 350 ml 300 ml BalanceBalance -200 ml -350 ml -300 ml Results/Medications Result Diagram: 06/15/18 0501 06/15/18 0500 Results 24 hrs Laboratory Tests Test 06/14/18 18:00 06/14/18 18:39 06/15/18 05:00 06/15/18 05:01 Urine Color YELLOW Urine Clarity CLOUDY A Urine pH 5.0 Urine Specific 1.027 [place] Urine Ketones NEGATIVE Urine Nitrite NEGATIVE Urine Bilirubin NEGATIVE Urine Urobilinogen NEGATIVE Urine Leukocyte 3+ H Esterase Urine Microscopic 11 H RBC Urine Microscopic 139 H WBC Urine Squamous MODERATE Epithelial Cells Urine Bacteria FEW A Urine Mucus FEW A Urine Hemoglobin 1+ H Urine Glucose NEGATIVE Urine Total NEGATIVE Protein Hemoglobin 10.1 L 9.7 L Hematocrit 30.8 L 29.4 L Sodium Level 134 L Potassium Level 4.4 Chloride Level 107 Carbon Dioxide 25 Level Anion Gap 2 L Blood Urea 21 H Nitrogen Creatinine 1.01 H Est Glomerular Filtrat Rate mL/min Glucose Level 79 Calcium Level 9.0 White Blood Count 7.0 # Red Blood Count 3.13 L Mean Corpuscular 93.9 Volume Mean Corpuscular 31.0 Hemoglobin Mean Corpuscular 33.0 Hemoglobin Concent Red Cell 17.1 H Distribution Width Platelet Count 113 L Mean Platelet 9.4 Volume Immature 0.400 Granulocytes % Neutrophils % 81.9 H Lymphocytes % 7.0 L Monocytes % 7.4 Eosinophils % 2.3 Basophils % 1.0 Nucleated Red 0.0 Blood Cells % Immature 0.030 Granulocytes # Neutrophils # 5.7 Lymphocytes # 0.5 L Monocytes # 0.5 Eosinophils # 0.2 Basophils # 0.1 Nucleated Red 0.0 Blood Cells # Phosphorus Level 3.6 Magnesium Level 2.0 Test 06/15/18 06:22 Lab Scanned BLOOD TRANSFUSION Report Home Meds Reported Medications Cyanocobalamin (Vitamin B-12) (Vitamin B-12) 1,000 Mcg Tab.subl, 1000 MCG SL DAILY 05/28/18 Multivitamin/Iron/Folic Acid (Centrum Adults Tablet) 1 Each Tablet, 1 EACH PO DAILY, TAB 05/28/18 Calcium Carbonate* (Calcium Carbonate*) 600 MG Ca Tab, 600 MG PO BID, TAB 05/28/18 Omeprazole* (Omeprazole*) 40 Mg Capsule.dr, 40 MG PO DAILY, #30 CAP 05/28/18 Atorvastatin Calcium (Atorvastatin Calcium) 10 Mg Tablet, 10 MG PO QHS, #30 TAB 05/28/18 Apixaban* (Eliquis*) 2.5 Mg Tablet, 2.5 MG PO DAILY, TAB 05/28/18 Sacubitril/Valsartan (Entresto 49 mg-51 mg Tablet) 1 Each Tablet, 1 EACH PO DAILY, TAB 05/28/18 Carvedilol* (Carvedilol*) 6.25 Mg Tablet, 6.25 MG PO DAILY, #60 TAB 05/28/18 Furosemide* (Furosemide*) 40 Mg Tablet, 40 MG PO DAILY, TAB 05/28/18 Spironolactone* (Aldactone*) 25 Mg Tablet, 25 MG PO DAILY, #30 TAB 05/28/18 Levothyroxine Sodium* (Levothyroxine Sodium*) 100 Mcg Tablet, 100 MCG PO BEFORE BREAKFAST, #30 TAB 05/28/18 Medications Current Medications IV Flush (NS 3 ml) 3 ml PER PROTOCOL IV ; Start 05/28/18 at 19:00 Ondansetron HCl (Zofran Inj) 4 mg Q6H PRN IV NAUSEA/VOMITING; Start 05/28/18 at 19:00 Acetaminophen (Tylenol Tab) 650 mg Q6H PRN PO .PAIN 1-3 OR TEMP Last administered on 06/12/18at 18:23; Admin Dose 650 MG; Start 05/28/18 at 19:00 Acetaminophen/ Hydrocodone Bitart ([place] (5/325)) 1 tab Q6H PRN PO .MOD PAIN 4-6; Start 05/28/18 at 19:00 Docusate Sodium (Colace) 100 mg Q12H PRN PO .CONSTIPATION Last administered on 06/07/18at 06:57; Admin Dose 100 MG; Start 05/28/18 at 19:00 Magnesium Hydroxide (Milk Of Mag) 30 ml DAILY PRN PO .CONSTIPATION Last administered on 06/06/18at 06:47; Admin Dose 30 ML; Start 05/28/18 at 19:00 Albuterol/ Ipratropium (Duoneb) 3 ml Q4H RESP THERAPY PRN HHN SHORTNESS OF BREATH; Start 05/28/18 at 19:00 Hydralazine HCl (Apresoline) 10 mg Q6H PRN IV ELEVATED BLOOD PRESSURE; Start 05/28/18 at 19:00 Nitroglycerin (Nitroglycerin (Sl Tab) 0.4 Mg) 1 tab Q5M PRN SL ANGINA; Start 05/28/18 at 19:00 Atorvastatin Calcium (Lipitor) 10 mg QHS PO Last administered on 06/14/18at 20:28; Admin Dose 10 MG; Start 05/28/18 at 21:00 Levothyroxine Sodium (Synthroid) 100 mcg BEFORE BREAKFAST PO Last administered on 06/15/18 06:36; Admin Dose 100 MCG; Start 05/29/18 at 07:00 Calcium Carbonate (Oyster Shell Calcium) 1.25 gm BID PO Last administered on 06/15/18 09:47; Admin Dose 1.25 GM; Start 05/28/18 at 21:00 Cyanocobalamin (Vitamin B12) 1,000 mcg DAILY PO Last administered on 06/09/18 10:20; Admin Dose 1,000 MCG; Start 05/29/18 at 09:00; Status Hold Multivitamins/ Minerals (Theragran-M) 1 tab DAILY PO Last administered on 06/15/18 09:46; Admin Dose 1 TAB; Start 05/29/18 at 09:00 Pantoprazole (Protonix Tab) 40 mg BID@06,18 PO Last administered on 06/15/18 06:36; Admin Dose 40 MG; Start 06/02/18 at 18:00 Polyethylene Glycol (Miralax) 17 gm DAILY PO Last administered on 06/15/18 09:46; Admin Dose 17 GM; Start 06/04/18 at 11:30 Carvedilol (Coreg) 6.25 mg BID PO Last administered on 06/15/18 09:47; Admin Dose 6.25 MG; Start 06/09/18 at 21:00 Sacubitril/ Valsartan (Entresto 24 Mg-26 Mg) 1 tab BID PO Last administered on 06/15/18 09:46; Admin Dose 1 TAB; Start 06/12/18 at 21:00 Levofloxacin (Levaquin) 500 mg DAILY@06 PO Last administered on 06/15/18 06:36; Admin Dose 500 MG; Start 06/14/18 at 23:30; Stop 06/18/18 at 23:55 Assessment/Plan Hospital Course (Demo Recall) 1. Recurrent lower GI bleed on anticoagulation: Currently off Eliquis 2. 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 Severe cardiomyopathy 4. Sick sinus syndrome with permanent pacemaker 5. History of aortic stenosis status post transcutaneous aortic valve replacement 6 permissive hypertension 7. Chronic kidney disease 8. Anemia secondary to GI bleeding 9. anemia: s/p transfusions 10. Pericardial effusion seen on CT scan Recommendations: Will cont coreg and inc as tolerated Transfusion as needed follow-up with GI recommendations regarding bleeding and anemia will resume entresto avoid fluid overload awaiting repeat echocardiogram awaiting transfer to [facility] for higher level of care Thank you for his referral. We will follow-up with you KAYLAH BAXTER MD [facility] KAYLAH BAXTER MD Jun 15, 2018 17:17
--- NOTE | 2018-06-15 18:26 | PN ---
Date/Time of Note Date/Time of Note DATE: 06/15/18 TIME: 18:24 Assessment/Plan VTE Prophylaxis Risk score (from Ns)>0 risk: 8 SCD applied (from Ns): Yes Pharmacological prophylaxis: NA/contraindicated Pharm contraindication: bleeding Lines[facility] Central line still needed: Yes Urinary Cath still in place: No Assessment/Plan Assessment/Plan ASSESSMENT AND PLAN: 82-year-old female coming in with history of paroxysmal atrial fibrillation on Eliquis, transcatheter aortic valve replacement, conges tive heart failure, recent lower gastrointestinal bleeding 2 weeks ago, hospitalized for that, status post colonoscopy with internal hemorrhoids and diverticulosis, presents with continued lower gastrointestinal bleeding and anemia, hemoglobin 5.9. 1. Anemia, lower gastrointestinal bleeding-likely secondary to diverticular source. On presentation the hemoglobin 5.9. Has had 4 separate occurrences where she needed PRBC transfusions this admission, and again we will get another transfusion now. - Continue to hold all anticoagulants including Eliquis (held since admission 05/28) -Despite positive tagged RBC scan results, colonoscopy, as well as IR embolization procedure again did not show any active bleeding. CT enterography results reviewed as well. As of now unable to localize site of what is likely a bleed -and general surgery team evaluated the patient as well yesterday. -Follow-up GI, cardiology, renal, and surgery recommendations. -Again, consults now agreeing patient needs to be transferred to higher level of care for either double balloon enterography to be performed, capsule test, or other test to identify the source of bleed that we cannot perform here. Family is in agreement for this, correctional case records supervisor actively working on this now. 2. Thrombocytopenia- Platelets initially were found to be in the 30-50 range earlier during her admission, had been trending up the last few days but today is down 99, likely having a slow downtrend again as a result from her still active bleeding occurring. -Monitor, follow-up further hematology oncology recommendations, -We will check another H&H tonight. 3. History of congestive heart failure. BNP 10,000 this admission. - Continue current cardiac medications cautiously -Had been holding Entresto but since the creatinine improved today will restart today. 4. High cholesterol. -Continue statin 5. History of transcatheter aortic valve replacement (TAVR). - Carefully continue current cardiac medications per cardiology recommendations 6. History of paroxysmal atrial fibrillation. Presently rate controlled - again, continue to monitor heart rate on telemetry. - Again, holding off on anticoagulation given her gastrointestinal bleeding presently right now. - Continue Coreg and follow further cardiology recommendations 7. SHANEKA -slowly improving with intermittent doses of IV fluids cautiously given given her CHF history -Monitor for now, follow-up renal recs. 8. Gastrointestinal prophylaxis. Again, continue on PPI IV b.i.d. 9. Deep venous thrombosis prophylaxis. SCDs - avoid anticoagulants given GI bleeding Result Diagram: 06/15/18 0501 06/15/18 0500 Subjective 24 Hr Interval Summary Free Text/Dictation No acute overnight events. Updated son Bakari about the plan to transfer to [facility]; he is in agreement. Exam/Review of Systems Exam Vitals Vital Signs Date Temp Pulse Resp B/P (MAP) Pulse Ox O2 O2 Flow FiO2 Time Delivery Rate 06/15/18 96.2 59 18 94/50 (65) 97 14:11 06/15/18 Room Air 08:08 06/14/18 2 13:12 Intake and Output 06/14/18 06/14/18 06/15/18 1515:00 23:00 07:00 IntakeIntake Total 200 ml OutputOutput Total 400 ml 350 ml 300 ml BalanceBalance -200 ml -350 ml -300 ml Exam GENERAL: lying in bed, NAD HEENT: Pupils equal, round, reactive to light. Extraocular muscles intact. NECK: Supple. No thyromegaly. LUNGS: Clear to auscultation bilaterally. CARDIOVASCULAR: S1 and S2 heard. No rubs or gallops. ABDOMEN: Soft, nontender, nondistended. Normal bowel sounds. No rebound or guarding. MUSCULOSKELETAL: No lower extremity edema bilaterally, some mild upper extre mity swelling bilaterally in the arms. PICC site in right upper extremity appears clean dry and intact otherwise Results Results 24hrs Laboratory Tests Test 06/14/18 18:39 06/15/18 05:00 06/15/18 05:01 06/15/18 06:22 Hemoglobin 10.1 L 9.7 L Hematocrit 30.8 L 29.4 L Sodium Level 134 L Potassium Level 4.4 Chloride Level 107 Carbon Dioxide 25 Level Anion Gap 2 L Blood Urea 21 H Nitrogen Creatinine 1.01 H Est Glomerular Filtrat Rate mL/min Glucose Level 79 Calcium Level 9.0 White Blood Count 7.0 # Red Blood Count 3.13 L Mean Corpuscular 93.9 Volume Mean Corpuscular 31.0 Hemoglobin Mean Corpuscular 33.0 Hemoglobin Concent Red Cell 17.1 H Distribution Width Platelet Count 113 L Mean Platelet 9.4 Volume Immature 0.400 Granulocytes % Neutrophils % 81.9 H Lymphocytes % 7.0 L Monocytes % 7.4 Eosinophils % 2.3 Basophils % 1.0 Nucleated Red 0.0 Blood Cells % Immature 0.030 Granulocytes # Neutrophils # 5.7 Lymphocytes # 0.5 L Monocytes # 0.5 Eosinophils # 0.2 Basophils # 0.1 Nucleated Red 0.0 Blood Cells # Phosphorus Level 3.6 Magnesium Level 2.0 Lab Scanned BLOOD TRANSFUSION Report Medications Medication Current Medications IV Flush (NS 3 ml) 3 ml PER PROTOCOL IV ; Start 05/28/18 at 19:00 Ondansetron HCl (Zofran Inj) 4 mg Q6H PRN IV NAUSEA/VOMITING; Start 05/28/18 at 19:00 Acetaminophen (Tylenol Tab) 650 mg Q6H PRN PO .PAIN 1-3 OR TEMP Last administered on 06/12/18at 18:23; Admin Dose 650 MG; Start 05/28/18 at 19:00 Acetaminophen/ Hydrocodone Bitart ([place] (5/325)) 1 tab Q6H PRN PO .MOD PAIN 4- 6; Start 05/28/18 at 19:00 Docusate Sodium (Colace) 100 mg Q12H PRN PO .CONSTIPATION Last administered on 06/07/18at 06:57; Admin Dose 100 MG; Start 05/28/18 at 19:00 Magnesium Hydroxide (Milk Of Mag) 30 ml DAILY PRN PO .CONSTIPATION Last administered on 06/06/18at 06:47; Admin Dose 30 ML; Start 05/28/18 at 19:00 Albuterol/ Ipratropium (Duoneb) 3 ml Q4H RESP THERAPY PRN HHN SHORTNESS OF BREATH; Start 05/28/18 at 19:00 Hydralazine HCl (Apresoline) 10 mg Q6H PRN IV ELEVATED BLOOD PRESSURE; Start 05/28/18 at 19:00 Nitroglycerin (Nitroglycerin (Sl Tab) 0.4 Mg) 1 tab Q5M PRN SL ANGINA; Start 05/28/18 at 19:00 Atorvastatin Calcium (Lipitor) 10 mg QHS PO Last administered on 06/14/18 20:28; Admin Dose 10 MG; Start 05/28/18 at 21:00 Levothyroxine Sodium (Synthroid) 100 mcg BEFORE BREAKFAST PO Last administered on 06/15/18 06:36; Admin Dose 100 MCG; Start 05/29/18 at 07:00 Calcium Carbonate (Oyster Shell Calcium) 1.25 gm BID PO Last administered on 06/15/18 09:47; Admin Dose 1.25 GM; Start 05/28/18 at 21:00 Cyanocobalamin (Vitamin B12) 1,000 mcg DAILY PO Last administered on 06/09/18 10:20; Admin Dose 1,000 MCG; Start 05/29/18 at 09:00; Status Hold Multivitamins/ Minerals (Theragran-M) 1 tab DAILY PO Last administered on 06/15/18 09:46; Admin Dose 1 TAB; Start 05/29/18 at 09:00 Pantoprazole (Protonix Tab) 40 mg BID@06,18 PO Last administered on 06/15/18 17:47; Admin Dose 40 MG; Start 06/02/18 at 18:00 Polyethylene Glycol (Miralax) 17 gm DAILY PO Last administered on 06/15/18 09:46; Admin Dose 17 GM; Start 06/04/18 at 11:30 Carvedilol (Coreg) 6.25 mg BID PO Last administered on 06/15/18 09:47; Admin Dose 6.25 MG; Start 06/09/18 at 21:00 Sacubitril/ Valsartan (Entresto 24 Mg-26 Mg) 1 tab BID PO Last administered on 06/15/18 09:46; Admin Dose 1 TAB; Start 06/12/18 at 21:00 Levofloxacin (Levaquin) 500 mg DAILY@06 PO Last administered on 06/15/18 06:36; Admin Dose 500 MG; Start 06/14/18 at 23:30; Stop 06/18/18 at 23:55 SHIRA ANTOINE MD Jun 15, 2018 18:26
[2018-06-15 19:58] VITALS: BP 103/57; PULSE 60; RESP 18
[2018-06-15] MEDS: ATORVASTATIN 10 MG TAB PO SCH (21:45)
[2018-06-16 02:07] VITALS: BP 121/58; PULSE 60; RESP 18
[2018-06-16] MEDS: LEVOFLOXACIN 500 MG TAB PO SCH (05:49)
[2018-06-16] MEDS: PANTOPRAZOLE (EC) 40 MG TAB PO SCH ×2 (05:49→17:20)
[2018-06-16] MEDS: LEVOTHYROXINE 100 MCG TAB PO SCH (05:49)
[2018-06-16 07:40] VITALS: BP 97/54; PULSE 60
[2018-06-16] MEDS: SACUBITRIL/VALSARTAN (24mg-26mg) TABLET PO SCH ×3 (09:00→20:23)
[2018-06-16] MEDS: BALSAM PERU/CASTOR OIL 60 GM TUBE TOP SCH ×2 (09:28→20:23)
[2018-06-16] MEDS: MULTIVITAMINS/MINERALS TAB PO SCH (09:28)
[2018-06-16] MEDS: POLYETHYLENE GLYCOL 17 GM PACKET PO SCH (09:28)
[2018-06-16] MEDS: CALCIUM CARBONATE 1.25 GM TAB PO SCH ×2 (09:28→20:23)
--- NOTE | 2018-06-16 09:31 | PN ---
DATE: 06/16/2018 SUBJECTIVE: The patient is stable. No events overnight. OBJECTIVE: VITAL SIGNS: Blood pressure is 97/54, pulse 60, temperature 97.4. HEENT: Head is normocephalic. NECK: Supple. HEART: Regular rate. LUNGS: Show diminished breath sounds at the base. ABDOMEN: Soft, nontender to palpation. No rebound or guarding. EXTREMITIES: Negative for clubbing, cyanosis, no edema. DERMATOLOGIC: No rashes. MUSCULOSKELETAL: No joint effusion. NEUROLOGIC: No change in exam. MEDICATIONS: Reviewed. LABORATORY DATA: Reviewed. ASSESSMENT AND PLAN: 1. Nonoliguric acute kidney injury on top of chronic kidney disease. Etiology of acute kidney injur y is secondary to hemodynamics. Renal function is stabilized. No evidence of contrast-associated ne phropathy. Continue to monitor. 2. Chronic kidney disease. Renal function is overall stable. Continue treatment plan of acute kidn ey injury as stated above otherwise continue disease factor modification. 3. Mild hypernatremia, resolved. 4. Mineral bone disorder, monitor calcium and phosphorus levels. 5. Anemia with active GI bleeding. The patient's underlying source is unclear. The patient is pend ing possible transfer to a tertiary center for further evaluation. 6. Atrial fibrillation. Continue medical management. 7. Congestive heart failure. Continue current treatment plan. 8. Hypothyroidism. Continue Synthroid. 9. History of dementia. 10. Dyslipidemia. Continue statin therapy. Dictated By: CATRACHO PALENCIA DO NR/NTS Conf#: [id number] DID#: [id number] CC: JO SANCHEZ MD; SHIRA ANTOINE MD; LES SAUNDERS;*End*
--- NOTE | 2018-06-16 13:04 | CONS ---
Assessment/Plan Assessment/Plan Hospital Course (Demo Recall) # Thrombocytopenia- Platelet are stable at 110 K today -she had normal plt count of 201K as an outpt so the thrombocytopenia is a new development thrombocytopenia is likely secondary to consumption from the brisk GI Bleed. no DIC or TTP -I do not feel that DDAVP will add much to her situation. THis was discussed with her daughter who is at the bedside # Diverticular GI bleed s/p recent scopes with EGD 05/29/2018 distal esophagitis/gastritis no active bleeding Colonoscopy 05/11/2018 sun-diverticulosis with evidence of recent bleeding Nuclear medicine bleeding scan positive -pt to transfer to higher level of care given we are not able to control this lower GI bleed. PT will likely need surgery # Anemia- due to above, Hgb 10.2 today; SP 2 units PRBC transfuse to keep hgb > 7 Plan to transfer patient [facility] for higher level of care. Consultation Date/Type/Reason Admit Date/Time May 28, 2018 at 19:26 Initial Consult Date 06/04/18 Type of Consult Hematology Reason for Consultation anemia/ thrombocytopenia Requesting Provider: SHIRA ANTOINE MD Date/Time of Note DATE: 06/16/18 TIME: 13:03 24 HR Interval Summary Free Text/Dictation still with melena Exam/Review of Systems Exam Vitals Vital Signs Date Temp Pulse Resp B/P (MAP) Pulse Ox O2 O2 Flow FiO2 Time Delivery Rate 06/16/18 97.7 60 97/54 (68) 98 Room Air 07:40 06/16/18 18 02:07 06/14/18 2 13:12 Constitutional: alert Psych: no complaints Head: normocephalic Eyes: nl conjunctiva ENMT: nl external ears & nose Neck: supple Respiratory: clear to auscultation Cardiovascular: regular rate and rhythm Gastrointestinal: soft Musculoskeletal: nl extremities to inspection Results Result Diagram: 06/16/18 0454 06/16/18 0454 Results 24hrs Laboratory Tests Test 06/15/18 23:26 06/16/18 04:54 Hemoglobin 8.8 L 8.9 L Hematocrit 26.6 L 27.3 L White Blood Count 7.2 Red Blood Count 2.84 L Mean Corpuscular Volume 96.1 Mean Corpuscular Hemoglobin 31.3 Mean Corpuscular Hemoglobin Concent 32.6 Red Cell Distribution Width 17.1 H Platelet Count 110 L Mean Platelet Volume 9.5 Immature Granulocytes % 0.700 H Neutrophils % 78.7 H Lymphocytes % 8.6 L Monocytes % 9.1 Eosinophils % 2.2 Basophils % 0.7 Nucleated Red Blood Cells % 0.0 Immature Granulocytes # 0.050 H Neutrophils # 5.7 Lymphocytes # 0.6 L Monocytes # 0.7 Eosinophils # 0.2 Basophils # 0.1 Nucleated Red Blood Cells # 0.0 Sodium Level 136 Potassium Level 4.2 Chloride Level 106 Carbon Dioxide Level 24 Anion Gap 6 Blood Urea Nitrogen 23 H Creatinine 1.12 H Est Glomerular Filtrat Rate mL/min Glucose Level 81 Calcium Level 8.9 Phosphorus Level 3.2 Magnesium Level 1.8 Medications Medication Current Medications IV Flush (NS 3 ml) 3 ml PER PROTOCOL IV ; Start 05/28/18 at 19:00 Ondansetron HCl (Zofran Inj) 4 mg Q6H PRN IV NAUSEA/VOMITING; Start 05/28/18 at 19:00 Acetaminophen (Tylenol Tab) 650 mg Q6H PRN PO .PAIN 1-3 OR TEMP Last administered on 06/12/18at 18:23; Admin Dose 650 MG; Start 05/28/18 at 19:00 Acetaminophen/ Hydrocodone Bitart ([place] (5/325)) 1 tab Q6H PRN PO .MOD PAIN 4-6; Start 05/28/18 at 19:00 Docusate Sodium (Colace) 100 mg Q12H PRN PO .CONSTIPATION Last administered on 06/07/18at 06:57; Admin Dose 100 MG; Start 05/28/18 at 19:00 Magnesium Hydroxide (Milk Of Mag) 30 ml DAILY PRN PO .CONSTIPATION Last administered on 06/06/18at 06:47; Admin Dose 30 ML; Start 05/28/18 at 19:00 Albuterol/ Ipratropium (Duoneb) 3 ml Q4H RESP THERAPY PRN HHN SHORTNESS OF BREATH; Start 05/28/18 at 19:00 Hydralazine HCl (Apresoline) 10 mg Q6H PRN IV ELEVATED BLOOD PRESSURE; Start 05/28/18 at 19:00 Nitroglycerin (Nitroglycerin (Sl Tab) 0.4 Mg) 1 tab Q5M PRN SL ANGINA; Start 05/28/18 at 19:00 Atorvastatin Calcium (Lipitor) 10 mg QHS PO Last administered on 06/15/18 21:45; Admin Dose 10 MG; Start 05/28/18 at 21:00 Levothyroxine Sodium (Synthroid) 100 mcg BEFORE BREAKFAST PO Last administered on 06/16/18 05:49; Admin Dose 100 MCG; Start 05/29/18 at 07:00 Calcium Carbonate (Oyster Shell Calcium) 1.25 gm BID PO Last administered on 06/16/18 09:28; Admin Dose 1.25 GM; Start 05/28/18 at 21:00 Cyanocobalamin (Vitamin B12) 1,000 mcg DAILY PO Last administered on 06/09/18 10:20; Admin Dose 1,000 MCG; Start 05/29/18 at 09:00; Status Hold Multivitamins/ Minerals (Theragran-M) 1 tab DAILY PO Last administered on 06/16/18 09:28; Admin Dose 1 TAB; Start 05/29/18 at 09:00 Pantoprazole (Protonix Tab) 40 mg BID@06,18 PO Last administered on 06/16/18 05:49; Admin Dose 40 MG; Start 06/02/18 at 18:00 Polyethylene Glycol (Miralax) 17 gm DAILY PO Last administered on 06/16/18 09:28; Admin Dose 17 GM; Start 06/04/18 at 11:30 Carvedilol (Coreg) 6.25 mg BID PO Last administered on 06/15/18 09:47; Admin Dose 6.25 MG; Start 06/09/18 at 21:00 Sacubitril/ Valsartan (Entresto 24 Mg-26 Mg) 1 tab BID PO Last administered on 06/15/18 21:45; Admin Dose 1 TAB; Start 06/12/18 at 21:00 Levofloxacin (Levaquin) 500 mg DAILY@06 PO Last administered on 06/16/18 05:49; Admin Dose 500 MG; Start 06/14/18 at 23:30; Stop 06/18/18 at 23:55 CHARITY OG M.D. Jun 16, 2018 13:04
[2018-06-16 14:52] VITALS: BP 90/52; PULSE 60; RESP 19
--- NOTE | 2018-06-16 15:53 | PN ---
Date/Time of Note Date/Time of Note DATE: 06/16/18 TIME: 15:48 Assessment/Plan VTE Prophylaxis Risk score (from Ns)>0 risk: 5 SCD applied (from Ns): Yes Pharmacological prophylaxis: NA/contraindicated Pharm contraindication: bleeding Lines/Catheters IV [facility]from [facility] PICC Line Central line still needed: Yes Urinary Cath still in place: No Assessment/Plan Assessment/Plan ASSESSMENT AND PLAN: 82-year-old female coming in with history of paroxysmal atrial fibrillation on Eliquis, transcatheter aortic valve replacement, conges tive heart failure, recent lower gastrointestinal bleeding 2 weeks ago, hospitalized for that, status post colonoscopy with internal hemorrhoids and diverticulosis, presents with continued lower gastrointestinal bleeding and anemia, hemoglobin 5.9. 1. Anemia, lower gastrointestinal bleeding-likely secondary to diverticular source. On presentation the hemoglobin 5.9. Has had 4 separate occurrences where she needed PRBC transfusions this admission, and again we will get another transfusion now. - Continue to hold all anticoagulants including Eliquis (held since admission 05/28) -Despite positive tagged RBC scan results, colonoscopy, as well as IR embolization procedure again did not show any active bleeding. CT enterography results reviewed as well. As of now unable to localize site of what is likely a bleed -and general surgery team evaluated the patient as well yesterday. -Follow-up GI, cardiology, renal, and surgery recommendations. -Again, consults now agreeing patient needs to be transferred to higher level of care for either double balloon enterography to be performed, capsule test, or other test to identify the source of bleed that we cannot perform here. Family is in agreement for this, casework specialist actively working on this now. 2. Thrombocytopenia- Platelets initially were found to be in the 30-50 range earlier during her admission, had been trending up the last few days but today is down 99, likely having a slow downtrend again as a result from her still active bleeding occurring. -Monitor, follow-up further hematology oncology recommendations, -We will check another H&H tonight. 3. History of congestive heart failure. BNP 10,000 this admission. - Continue current cardiac medications cautiously -Had been holding Entresto but since the creatinine improved today will restart today. 4. High cholesterol. -Continue statin 5. History of transcatheter aortic valve replacement (TAVR). - Carefully continue current cardiac medications per cardiology recommendations 6. History of paroxysmal atrial fibrillation. Presently rate controlled - again, continue to monitor heart rate on telemetry. - Again, holding off on anticoagulation given her gastrointestinal bleeding presently right now. - Continue Coreg and follow further cardiology recommendations 7. SHANEKA -slowly improving with intermittent doses of IV fluids cautiously given given her CHF history -Monitor for now, follow-up renal recs. 8. Gastrointestinal prophylaxis. Again, continue on PPI IV b.i.d. 9. Deep venous thrombosis prophylaxis. SCDs - avoid anticoagulants given GI bleeding Dispo: Plan for transfer to higher level of care for double balloon enteroscopy. Family is in agreement. Result Diagram: 06/16/184 06/16/18453 Subjective 24 Hr Interval Summary Free Text/Dictation No acute overnight events. Had hypotensive episode this morning. Also still have blood-streaked stool. Exam/Review of Systems Exam Vitals Vital Signs Date Temp Pulse Resp B/P (MAP) Pulse Ox O2 O2 Flow FiO2 Time Delivery Rate 06/16/18 98.4 60 19 90/52 (65) 97 Nasal 14:52 Cannula 06/14/18 2 13:12 Exam GENERAL: lying in bed, NAD HEENT: Pupils equal, round, reactive to light. Extraocular muscles intact. NECK: Supple. No thyromegaly. LUNGS: Clear to auscultation bilaterally. CARDIOVASCULAR: S1 and S2 heard. No rubs or gallops. ABDOMEN: Soft, nontender, nondistended. Normal bowel sounds. No rebound or guarding. MUSCULOSKELETAL: No lower extremity edema bilaterally, some mild upper extremit y swelling bilaterally in the arms. PICC site in right upper extremity appears clean dry and intact otherwise Results Results 24hrs Laboratory Tests Test 06/15/18 23:26 06/16/18 04:54 Hemoglobin 8.8 L 8.9 L Hematocrit 26.6 L 27.3 L White Blood Count 7.2 Red Blood Count 2.84 L Mean Corpuscular Volume 96.1 Mean Corpuscular Hemoglobin 31.3 Mean Corpuscular Hemoglobin Concent 32.6 Red Cell Distribution Width 17.1 H Platelet Count 110 L Mean Platelet Volume 9.5 Immature Granulocytes % 0.700 H Neutrophils % 78.7 H Lymphocytes % 8.6 L Monocytes % 9.1 Eosinophils % 2.2 Basophils % 0.7 Nucleated Red Blood Cells % 0.0 Immature Granulocytes # 0.050 H Neutrophils # 5.7 Lymphocytes # 0.6 L Monocytes # 0.7 Eosinophils # 0.2 Basophils # 0.1 Nucleated Red Blood Cells # 0.0 Sodium Level 136 Potassium Level 4.2 Chloride Level 106 Carbon Dioxide Level 24 Anion Gap 6 Blood Urea Nitrogen 23 H Creatinine 1.12 H Est Glomerular Filtrat Rate mL/min Glucose Level 81 Calcium Level 8.9 Phosphorus Level 3.2 Magnesium Level 1.8 Medications Medication Current Medications IV Flush (NS 3 ml) 3 ml PER PROTOCOL IV ; Start 05/28/18 at 19:00 Ondansetron HCl (Zofran Inj) 4 mg Q6H PRN IV NAUSEA/VOMITING; Start 05/28/18 at 19:00 Acetaminophen (Tylenol Tab) 650 mg Q6H PRN PO .PAIN 1-3 OR TEMP Last administered on 06/12/18at 18:23; Admin Dose 650 MG; Start 05/28/18 at 19:00 Acetaminophen/ Hydrocodone Bitart ([place] (5/325)) 1 tab Q6H PRN PO .MOD PAIN 4- 6; Start 05/28/18 at 19:00 Docusate Sodium (Colace) 100 mg Q12H PRN PO .CONSTIPATION Last administered on 06/07/18 06:57; Admin Dose 100 MG; Start 05/28/18 at 19:00 Magnesium Hydroxide (Milk Of Mag) 30 ml DAILY PRN PO .CONSTIPATION Last administered on 06/06/18 06:47; Admin Dose 30 ML; Start 05/28/18 at 19:00 Albuterol/ Ipratropium (Duoneb) 3 ml Q4H RESP THERAPY PRN HHN SHORTNESS OF BREATH; Start 05/28/18 at 19:00 Hydralazine HCl (Apresoline) 10 mg Q6H PRN IV ELEVATED BLOOD PRESSURE; Start 05/28/18 at 19:00 Nitroglycerin (Nitroglycerin (Sl Tab) 0.4 Mg) 1 tab Q5M PRN SL ANGINA; Start 05/28/18 at 19:00 Atorvastatin Calcium (Lipitor) 10 mg QHS PO Last administered on 06/15/18at 21:45; Admin Dose 10 MG; Start 05/28/18 at 21:00 Levothyroxine Sodium (Synthroid) 100 mcg BEFORE BREAKFAST PO Last administered on 06/16/18 05:49; Admin Dose 100 MCG; Start 05/29/18 at 07:00 Calcium Carbonate (Oyster Shell Calcium) 1.25 gm BID PO Last administered on 06/16/18 09:28; Admin Dose 1.25 GM; Start 05/28/18 at 21:00 Cyanocobalamin (Vitamin B12) 1,000 mcg DAILY PO Last administered on 06/09/18 10:20; Admin Dose 1,000 MCG; Start 05/29/18 at 09:00; Status Hold Multivitamins/ Minerals (Theragran-M) 1 tab DAILY PO Last administered on 06/16/18 09:28; Admin Dose 1 TAB; Start 05/29/18 at 09:00 Pantoprazole (Protonix Tab) 40 mg BID@06,18 PO Last administered on 06/16/18 05:49; Admin Dose 40 MG; Start 06/02/18 at 18:00 Polyethylene Glycol (Miralax) 17 gm DAILY PO Last administered on 06/16/18 09:28; Admin Dose 17 GM; Start 06/04/18 at 11:30 Carvedilol (Coreg) 6.25 mg BID PO Last administered on 06/15/18 09:47; Admin Dose 6.25 MG; Start 06/09/18 at 21:00 Sacubitril/ Valsartan (Entresto 24 Mg-26 Mg) 1 tab BID PO Last administered on 06/15/18 21:45; Admin Dose 1 TAB; Start 06/12/18 at 21:00 Levofloxacin (Levaquin) 500 mg DAILY@06 PO Last administered on 06/16/18 05:49; Admin Dose 500 MG; Start 06/14/18 at 23:30; Stop 06/18/18 at 23:55 SHIRA ANTOINE MD Jun 16, 2018 15:53
--- NOTE | 2018-06-16 16:31 | CONS ---
Consult Date/Type/Reason Admit Date/Time May 28, 2018 at 19:26 Initial Consult Date 05/29/18 Type of Consultation: cv Requesting Provider: SHIRA ANTOINE MD Date/Time of Note DATE: 06/16/18 TIME: 16:31 Subjective Interventional cardiology follow-up progress note Subjective: Discussed with staff and telemetry was reviewed. Patient is off tele now Discussed with the patient's family including daughters at bedside + bleeding per family report She denies any chest pain or pressure to me has any palpitation to me. s/p colo again on 06/10 Objective: General: Elderly female no acute distress HEENT: NC/AT. pupils are equal. round. NECK: . no stridor. CV: RRR. systolic murmur; no gallop or rubs. PULM: no wheezing or rhonchi. GI: SOFT, NT, ND, no rebound or guarding Extremity: trace B/L LE edema. no clubbing. neuro: awake and alert, Psych: calm and pleasant rectal: deferred Abdominal/pelvic CT done May 30, 2018 shows: No evidence of urolithiasis, obstructive uropathy or diverticulitis. Diverticulosis. Nonvisualization appendix. No bowel mass or obstruction is seen. Cholecystectomy with presumed physiologic intra and extrahepatic bile duct dilatation. Correlation with serum bilirubin levels could be performed if clinically indicated. Aortic valve replacement. Cardiomegaly. Small pericardial effusion. Vascular calcifications. Senescent degenerative changes spine. Tiny right pleural effusion. Objective Vitals Vital Signs Date Temp Pulse Resp B/P (MAP) Pulse Ox O2 O2 Flow FiO2 Time Delivery Rate 06/16/18 98.4 60 19 90/52 (65) 97 Nasal 14:52 Cannula 06/14/18 2 13:12 Results/Medications Result Diagram: 06/16/18 0454 06/16/18 0454 Results 24 hrs Laboratory Tests Test 06/15/18 23:26 06/16/18 04:54 Hemoglobin 8.8 L 8.9 L Hematocrit 26.6 L 27.3 L White Blood Count 7.2 Red Blood Count 2.84 L Mean Corpuscular Volume 96.1 Mean Corpuscular Hemoglobin 31.3 Mean Corpuscular Hemoglobin Concent 32.6 Red Cell Distribution Width 17.1 H Platelet Count 110 L Mean Platelet Volume 9.5 Immature Granulocytes % 0.700 H Neutrophils % 78.7 H Lymphocytes % 8.6 L Monocytes % 9.1 Eosinophils % 2.2 Basophils % 0.7 Nucleated Red Blood Cells % 0.0 Immature Granulocytes # 0.050 H Neutrophils # 5.7 Lymphocytes # 0.6 L Monocytes # 0.7 Eosinophils # 0.2 Basophils # 0.1 Nucleated Red Blood Cells # 0.0 Sodium Level 136 Potassium Level 4.2 Chloride Level 106 Carbon Dioxide Level 24 Anion Gap 6 Blood Urea Nitrogen 23 H Creatinine 1.12 H Est Glomerular Filtrat Rate mL/min Glucose Level 81 Calcium Level 8.9 Phosphorus Level 3.2 Magnesium Level 1.8 Home Meds Reported Medications Cyanocobalamin (Vitamin B-12) (Vitamin B-12) 1,000 Mcg Tab.subl, 1000 MCG SL DAILY 05/28/18 Multivitamin/Iron/Folic Acid (Centrum Adults Tablet) 1 Each Tablet, 1 EACH PO DAILY, TAB 05/28/18 Calcium Carbonate* (Calcium Carbonate*) 600 MG Ca Tab, 600 MG PO BID, TAB 05/28/18 Omeprazole* (Omeprazole*) 40 Mg Capsule.dr, 40 MG PO DAILY, #30 CAP 05/28/18 Atorvastatin Calcium (Atorvastatin Calcium) 10 Mg Tablet, 10 MG PO QHS, #30 TAB 05/28/18 Apixaban* (Eliquis*) 2.5 Mg Tablet, 2.5 MG PO DAILY, TAB 05/28/18 Sacubitril/Valsartan (Entresto 49 mg-51 mg Tablet) 1 Each Tablet, 1 EACH PO DAILY, TAB 05/28/18 Carvedilol* (Carvedilol*) 6.25 Mg Tablet, 6.25 MG PO DAILY, #60 TAB 05/28/18 Furosemide* (Furosemide*) 40 Mg Tablet, 40 MG PO DAILY, TAB 05/28/18 Spironolactone* (Aldactone*) 25 Mg Tablet, 25 MG PO DAILY, #30 TAB 05/28/18 Levothyroxine Sodium* (Levothyroxine Sodium*) 100 Mcg Tablet, 100 MCG PO BEFORE BREAKFAST, #30 TAB 05/28/18 Medications Current Medications IV Flush (NS 3 ml) 3 ml PER PROTOCOL IV ; Start 05/28/18 at 19:00 Ondansetron HCl (Zofran Inj) 4 mg Q6H PRN IV NAUSEA/VOMITING; Start 05/28/18 at 19:00 Acetaminophen (Tylenol Tab) 650 mg Q6H PRN PO .PAIN 1-3 OR TEMP Last a dministered on 06/12/18 18:23; Admin Dose 650 MG; Start 05/28/18 at 19:00 Acetaminophen/ Hydrocodone Bitart ([place] (5/325)) 1 tab Q6H PRN PO .MOD PAIN 4- 6; Start 05/28/18 at 19:00 Docusate Sodium (Colace) 100 mg Q12H PRN PO .CONSTIPATION Last administered on 06/07/18 06:57; Admin Dose 100 MG; Start 05/28/18 at 19:00 Magnesium Hydroxide (Milk Of Mag) 30 ml DAILY PRN PO .CONSTIPATION Last admin istered on 06/06/18 06:47; Admin Dose 30 ML; Start 05/28/18 at 19:00 Albuterol/ Ipratropium (Duoneb) 3 ml Q4H RESP THERAPY PRN HHN SHORTNESS OF BREATH; Start 05/28/18 at 19:00 Hydralazine HCl (Apresoline) 10 mg Q6H PRN IV ELEVATED BLOOD PRESSURE; Start 05/28/18 at 19:00 Nitroglycerin (Nitroglycerin (Sl Tab) 0.4 Mg) 1 tab Q5M PRN SL ANGINA; Start 05/28/18 at 19:00 Atorvastatin Calcium (Lipitor) 10 mg QHS PO Last administered on 06/15/18 21:45; Admin Dose 10 MG; Start 05/28/18 at 21:00 Levothyroxine Sodium (Synthroid) 100 mcg BEFORE BREAKFAST PO Last administered on 06/16/18 05:49; Admin Dose 100 MCG; Start 05/29/18 at 07:00 Calcium Carbonate (Oyster Shell Calcium) 1.25 gm BID PO Last administered on 06/16/18 09:28; Admin Dose 1.25 GM; Start 05/28/18 at 21:00 Cyanocobalamin (Vitamin B12) 1,000 mcg DAILY PO Last administered on 06/09/18 10:20; Admin Dose 1,000 MCG; Start 05/29/18 at 09:00; Status Hold Multivitamins/ Minerals (Theragran-M) 1 tab DAILY PO Last administered on 09:28; Admin Dose 1 TAB; Start 05/29/18 at 09:00 Pantoprazole (Protonix Tab) 40 mg BID@06,18 PO Last administered on 06/16/18 05:49; Admin Dose 40 MG; Start 06/02/18 at 18:00 Polyethylene Glycol (Miralax) 17 gm DAILY PO Last administered on 06/16/18 09:28; Admin Dose 17 GM; Start 06/04/18 at 11:30 Carvedilol (Coreg) 6.25 mg BID PO Last administered on 06/15/18 09:47; Admin Dose 6.25 MG; Start 06/09/18 at 21:00 Sacubitril/ Valsartan (Entresto 24 Mg-26 Mg) 1 tab BID PO Last administered on 06/15/18 21:45; Admin Dose 1 TAB; Start 06/12/18 at 21:00 Levofloxacin (Levaquin) 500 mg DAILY@06 PO Last administered on 06/16/18 05:49; Admin Dose 500 MG; Start 06/14/18 at 23:30; Stop 06/18/18 at 23:55 Assessment/Plan Hospital Course (Demo Recall) 1. Recurrent lower GI bleed on anticoagulation: Currently off Eliquis 2. 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 Severe cardiomyopathy 4. Sick sinus syndrome with permanent pacemaker 5. History of aortic stenosis status post transcutaneous aortic valve replacement 6 permissive hypertension 7. Chronic kidney disease 8. Anemia secondary to GI bleeding 9. anemia: s/p transfusions 10. Pericardial effusion seen on CT scan Recommendations: Will cont coreg and inc as tolerated Transfusion as needed follow-up with GI recommendations regarding bleeding and anemia will cont entresto avoid fluid overload awaiting transfer to [facility] for higher level of care Thank you for his referral. We will follow-up with you KAYLAH BAXTRE MD [facility] KAYLAH BAXTER MD Jun 16, 2018 16:31
--- NOTE | 2018-06-16 17:49 | PN ---
Date/Time of Note Date/Time of Note DATE: 06/16/18 TIME: 17:38 Assessment/Plan VTE Prophylaxis Risk score (from Ns)>0 risk: 5 SCD applied (from Ns): Yes Pharmacological prophylaxis: NA/contraindicated Pharm contraindication: bleeding Lines/Catheters IV C[facility] Type (from [facility] PICC Line Central line still needed: Yes Urinary Cath still in place: No Assessment/Plan Hospital Course Assessment: GI bleeding/hematochezia/melena. Likely right colon diverticular source EGD 05/29/2018 distal esophagitis/gastritis no active bleeding Colonoscopy 05/11/2018 sun-diverticulosis with evidence of recent bleeding Colonoscopy 06/10/18- Sun-diverticulosis, no active bleeding IR embolization -no bleeding found Anemia Anticoagulation- on hold Dementia A-fib CKD CHF Thrombocytopenia Plan: Transfer to tertiary center consider double balloon enteroscopy versus capsule endoscopy to assess for small bowel AVMs vs other [facility] "Bleeding Service" Dr Tafoya [phone] Continue to monitor, no more procedures at this time Monitor H&H - transfuse as needed Continue supportive measures. Result Diagram: 06/16/18 0454 06/16/18 0454 Results 24hrs Laboratory Tests Test 06/15/18 23:26 06/16/18 04:54 Hemoglobin 8.8 L 8.9 L Hematocrit 26.6 L 27.3 L White Blood Count 7.2 Red Blood Count 2.84 L Mean Corpuscular Volume 96.1 Mean Corpuscular Hemoglobin 31.3 Mean Corpuscular Hemoglobin Concent 32.6 Red Cell Distribution Width 17.1 H Platelet Count 110 L Mean Platelet Volume 9.5 Immature Granulocytes % 0.700 H Neutrophils % 78.7 H Lymphocytes % 8.6 L Monocytes % 9.1 Eosinophils % 2.2 Basophils % 0.7 Nucleated Red Blood Cells % 0.0 Immature Granulocytes # 0.050 H Neutrophils # 5.7 Lymphocytes # 0.6 L Monocytes # 0.7 Eosinophils # 0.2 Basophils # 0.1 Nucleated Red Blood Cells # 0.0 Sodium Level 136 Potassium Level 4.2 Chloride Level 106 Carbon Dioxide Level 24 Anion Gap 6 Blood Urea Nitrogen 23 H Creatinine 1.12 H Est Glomerular Filtrat Rate mL/min Glucose Level 81 Calcium Level 8.9 Phosphorus Level 3.2 Magnesium Level 1.8 Subjective 24 Hr Interval Summary Free Text/Dictation Course reviewed with nursing staff Patient interviewed and examined All labs, imaging and other results reviewed [facility] contacted for possible transfer for push enteroscopy Pt with on-going bleeding- transfuse as needed Exam/Review of Systems Exam Vitals Vital Signs Date Temp Pulse Resp B/P (MAP) Pulse Ox O2 O2 Flow FiO2 Time Delivery Rate 06/16/18 98.4 60 19 90/52 (65) 97 Nasal 14:52 Cannula 06/14/18 2 13:12 Exam PHYSICAL EXAMINATION: GENERAL: Alert & oriented x 3 SKIN: No lesions CHEST: Inspection within normal limits. CARDIOVASCULAR: Heart: Regular rate and rhythm RESPIRATORY: Lungs clear to auscultation GASTROINTESTINAL AND LIVER: Abdomen: Soft, non tenderness, non-distended, no hernias, no masses, no organomegaly, no ascites, no guarding, no rebound tenderness, normoactive bowel sounds. Rectal: Deferred. GENITOURINARY: Female genitalia within normal limits. EXTREMITIES: No cyanosis, clubbing or edema. Results Results 24hrs Laboratory Tests Test 06/15/18 23:26 06/16/18 04:54 Hemoglobin 8.8 L 8.9 L Hematocrit 26.6 L 27.3 L White Blood Count 7.2 Red Blood Count 2.84 L Mean Corpuscular Volume 96.1 Mean Corpuscular Hemoglobin 31.3 Mean Corpuscular Hemoglobin Concent 32.6 Red Cell Distribution Width 17.1 H Platelet Count 110 L Mean Platelet Volume 9.5 Immature Granulocytes % 0.700 H Neutrophils % 78.7 H Lymphocytes % 8.6 L Monocytes % 9.1 Eosinophils % 2.2 Basophils % 0.7 Nucleated Red Blood Cells % 0.0 Immature Granulocytes # 0.050 H Neutrophils # 5.7 Lymphocytes # 0.6 L Monocytes # 0.7 Eosinophils # 0.2 Basophils # 0.1 Nucleated Red Blood Cells # 0.0 Sodium Level 136 Potassium Level 4.2 Chloride Level 106 Carbon Dioxide Level 24 Anion Gap 6 Blood Urea Nitrogen 23 H Creatinine 1.12 H Est Glomerular Filtrat Rate mL/min Glucose Level 81 Calcium Level 8.9 Phosphorus Level 3.2 Magnesium Level 1.8 Medications Medication Current Medications IV Flush (NS 3 ml) 3 ml PER PROTOCOL IV ; Start 05/28/18 at 19:00 Ondansetron HCl (Zofran Inj) 4 mg Q6H PRN IV NAUSEA/VOMITING; Start 05/28/18 at 19:00 Acetaminophen (Tylenol Tab) 650 mg Q6H PRN PO .PAIN 1-3 OR TEMP Last administered on 06/12/18 18:23; Admin Dose 650 MG; Start 05/28/18 at 19:00 Acetaminophen/ Hydrocodone Bitart ([place] (5/325)) 1 tab Q6H PRN PO .MOD PAIN 4- 6; Start 05/28/18 at 19:00 Docusate Sodium (Colace) 100 mg Q12H PRN PO .CONSTIPATION Last administered on 06/07/18 06:57; Admin Dose 100 MG; Start 05/28/18 at 19:00 Magnesium Hydroxide (Milk Of Mag) 30 ml DAILY PRN PO .CONSTIPATION Last administered on 06/06/18 06:47; Admin Dose 30 ML; Start 05/28/18 at 19:00 Albuterol/ Ipratropium (Duoneb) 3 ml Q4H RESP THERAPY PRN HHN SHORTNESS OF BREATH; Start 05/28/18 at 19:00 Hydralazine HCl (Apresoline) 10 mg Q6H PRN IV ELEVATED BLOOD PRESSURE; Start 05/28/18 at 19:00 Nitroglycerin (Nitroglycerin (Sl Tab) 0.4 Mg) 1 tab Q5M PRN SL ANGINA; Start 05/28/18 at 19:00 Atorvastatin Calcium (Lipitor) 10 mg QHS PO Last administered on 06/15/18 21:45; Admin Dose 10 MG; Start 05/28/18 at 21:00 Levothyroxine Sodium (Synthroid) 100 mcg BEFORE BREAKFAST PO Last administered on 06/16/18 05:49; Admin Dose 100 MCG; Start 05/29/18 at 07:00 Calcium Carbonate (Oyster Shell Calcium) 1.25 gm BID PO Last administered on 06/16/18 09:28; Admin Dose 1.25 GM; Start 05/28/18 at 21:00 Cyanocobalamin (Vitamin B12) 1,000 mcg DAILY PO Last administered on 06/09/18 10:20; Admin Dose 1,000 MCG; Start 05/29/18 at 09:00; Status Hold Multivitamins/ Minerals (Theragran-M) 1 tab DAILY PO Last administered on 4/2/19at 09:28; Admin Dose 1 TAB; Start 05/29/18 at 09:00 Pantoprazole (Protonix Tab) 40 mg BID@06,18 PO Last administered on 06/16/18at 17:20; Admin Dose 40 MG; Start 06/02/18 at 18:00 Polyethylene Glycol (Miralax) 17 gm DAILY PO Last administered on 06/16/18at 09:28; Admin Dose 17 GM; Start 06/04/18 at 11:30 Carvedilol (Coreg) 6.25 mg BID PO Last administered on 06/15/18at 09:47; Admin Dose 6.25 MG; Start 06/09/18 at 21:00 Sacubitril/ Valsartan (Entresto 24 Mg-26 Mg) 1 tab BID PO Last administered on 06/15/18at 21:45; Admin Dose 1 TAB; Start 06/12/18 at 21:00 Levofloxacin (Levaquin) 500 mg DAILY@06 PO Last administered on 06/16/18at 05:49; Admin Dose 500 MG; Start 06/14/18 at 23:30; Stop 06/18/18 at 23:55 ELVIRA MARK MD Jun 16, 2018 17:48
[2018-06-16] MEDS: ACETAMINOPHEN 325 MG TAB PO PRN (18:21)
[2018-06-16 19:55] VITALS: BP 90/53; PULSE 60; RESP 18
[2018-06-16] MEDS: ATORVASTATIN 10 MG TAB PO SCH (20:23)
[2018-06-16] MEDS ORDERED: ALBUMIN HUMAN 25% 100 ML IV ONE (22:00)
[2018-06-17 02:05] VITALS: BP 106/53; PULSE 60; RESP 18
[2018-06-17] MEDS: PANTOPRAZOLE (EC) 40 MG TAB PO SCH ×2 (06:09→17:30)
[2018-06-17] MEDS: LEVOFLOXACIN 500 MG TAB PO SCH (06:09)
[2018-06-17] MEDS: LEVOTHYROXINE 100 MCG TAB PO SCH (06:09)
[2018-06-17 07:30] VITALS: BP 127/58; PULSE 60; RESP 18
[2018-06-17] MEDS: ACETAMINOPHEN 325 MG TAB PO PRN ×2 (07:54→18:59)
--- NOTE | 2018-06-17 08:09 | CONS ---
Consult Date/Type/Reason Admit Date/Time May 28, 2018 at 19:26 Initial Consult Date 05/29/18 Type of Consultation: cv Requesting Provider: SHIRA ANTOINE MD Date/Time of Note DATE: 06/17/18 TIME: 08:06 Subjective Interventional cardiology follow-up progress note Subjective: Discussed with staff and telemetry was reviewed. Patient is off tele now Discussed with the patient's family including daughters at bedside + more rectal bleeding She denies any chest pain or pressure to me has any palpitation to me. According to the daughter patient was sitting in the chair yesterday and became lightheaded at the back on the bed s/p colo again on 06/10 Objective: General: Elderly female no acute distress HEENT: NC/AT. pupils are equal. round. NECK: . no stridor. CV: RRR. systolic murmur; no gallop or rubs. PULM: no wheezing or rhonchi. GI: SOFT, NT, ND, no rebound or guarding Extremity: trace B/L LE edema. no clubbing. neuro: awake and alert, Psych: calm and pleasant rectal: deferred Abdominal/pelvic CT done May 30, 2018 shows: No evidence of urolithiasis, obstructive uropathy or diverticulitis. Diverticulosis. Nonvisualization appendix. No bowel mass or obstruction is seen. Cholecystectomy with presumed physiologic intra and extrahepatic bile duct dilatation. Correlation with serum bilirubin levels could be performed if clinic ally indicated. Aortic valve replacement. Cardiomegaly. Small pericardial effusion. Vascular calcifications. Senescent degenerative changes spine. Tiny right pleural effusion. Objective Vitals Vital Signs Date Temp Pulse Resp B/P (MAP) Pulse Ox O2 O2 Flow FiO2 Time Delivery Rate 06/17/18 98.1 60 18 127/58 98 07:30 (81) 06/16/18 Nasal 14:52 Cannula 06/14/18 2 13:12 Intake and Output 06/16/18 06/16/18 06/17/18 1515:00 23:00 07:00 IntakeIntake Total 1400 ml 300 ml 440 ml OutputOutput Total 600 ml BalanceBalance 800 ml 300 ml 440 ml Results/Medications Result Diagram: 06/17/18 0500 06/17/18 0500 Results 24 hrs Laboratory Tests Test 06/16/18 20:50 06/17/18 05:00 Hemoglobin 8.2 L 7.4 L Hematocrit 25.5 L 23.2 L White Blood Count 6.2 Red Blood Count 2.41 L Mean Corpuscular Volume 96.3 Mean Corpuscular Hemoglobin 30.7 Mean Corpuscular Hemoglobin Concent 31.9 L Red Cell Distribution Width 17.1 H Platelet Count 91 L Mean Platelet Volume 9.6 Immature Granulocytes % 0.600 H Neutrophils % 74.4 Lymphocytes % 11.8 L Monocytes % 9.7 Eosinophils % 2.9 Basophils % 0.6 Nucleated Red Blood Cells % 0.0 Immature Granulocytes # 0.040 H Neutrophils # 4.6 Lymphocytes # 0.7 L Monocytes # 0.6 Eosinophils # 0.2 Basophils # 0.0 Nucleated Red Blood Cells # 0.0 Sodium Level 137 Potassium Level 4.2 Chloride Level 109 Carbon Dioxide Level 26 Anion Gap 2 L Blood Urea Nitrogen 22 H Creatinine 1.18 H Est Glomerular Filtrat Rate mL/min Glucose Level 83 Calcium Level 8.9 Home Meds Reported Medications Cyanocobalamin (Vitamin B-12) (Vitamin B-12) 1,000 Mcg Tab.subl, 1000 MCG SL DAILY 05/28/18 Multivitamin/Iron/Folic Acid (Centrum Adults Tablet) 1 Each Tablet, 1 EACH PO DAILY, TAB 05/28/18 Calcium Carbonate* (Calcium Carbonate*) 600 MG Ca Tab, 600 MG PO BID, TAB 05/28/18 Omeprazole* (Omeprazole*) 40 Mg Capsule.dr, 40 MG PO DAILY, #30 CAP 05/28/18 Atorvastatin Calcium (Atorvastatin Calcium) 10 Mg Tablet, 10 MG PO QHS, #30 TAB 05/28/18 Apixaban* (Eliquis*) 2.5 Mg Tablet, 2.5 MG PO DAILY, TAB 05/28/18 Sacubitril/Valsartan (Entresto 49 mg-51 mg Tablet) 1 Each Tablet, 1 EACH PO DAILY, TAB 05/28/18 Carvedilol* (Carvedilol*) 6.25 Mg Tablet, 6.25 MG PO DAILY, #60 TAB 05/28/18 Furosemide* (Furosemide*) 40 Mg Tablet, 40 MG PO DAILY, TAB 05/28/18 Spironolactone* (Aldactone*) 25 Mg Tablet, 25 MG PO DAILY, #30 TAB 05/28/18 Levothyroxine Sodium* (Levothyroxine Sodium*) 100 Mcg Tablet, 100 MCG PO BEFORE BREAKFAST, #30 TAB 05/28/18 Medications Current Medications IV Flush (NS 3 ml) 3 ml PER PROTOCOL IV ; Start 05/28/18 at 19:00 Ondansetron HCl (Zofran Inj) 4 mg Q6H PRN IV NAUSEA/VOMITING; Start 05/28/18 at 19:00 Acetaminophen (Tylenol Tab) 650 mg Q6H PRN PO .PAIN 1-3 OR TEMP Last administered on 06/17/18 07:54; Admin Dose 650 MG; Start 05/28/18 at 19:00 Acetaminophen/ Hydrocodone Bitart ([place] (5/325)) 1 tab Q6H PRN PO .MOD PAIN 4- 6; Start 05/28/18 at 19:00 Docusate Sodium (Colace) 100 mg Q12H PRN PO .CONSTIPATION Last administered on 06/07/18 06:57; Admin Dose 100 MG; Start 05/28/18 at 19:00 Magnesium Hydroxide (Milk Of Mag) 30 ml DAILY PRN PO .CONSTIPATION Last administered on 06/06/18 06:47; Admin Dose 30 ML; Start 05/28/18 at 19:00 Albuterol/ Ipratropium (Duoneb) 3 ml Q4H RESP THERAPY PRN HHN SHORTNESS OF BREATH; Start 05/28/18 at 19:00 Hydralazine HCl (Apresoline) 10 mg Q6H PRN IV ELEVATED BLOOD PRESSURE; Start 05/28/18 at 19:00 Nitroglycerin (Nitroglycerin (Sl Tab) 0.4 Mg) 1 tab Q5M PRN SL ANGINA; Start 05/28/18 at 19:00 Atorvastatin Calcium (Lipitor) 10 mg QHS PO Last administered on 06/16/18 20:23; Admin Dose 10 MG; Start 05/28/18 at 21:00 Levothyroxine Sodium (Synthroid) 100 mcg BEFORE BREAKFAST PO Last administered on 06/17/18 06:09; Admin Dose 100 MCG; Start 05/29/18 at 07:00 Calcium Carbonate (Oyster Shell Calcium) 1.25 gm BID PO Last administered on 06/16/18 20:23; Admin Dose 1.25 GM; Start 05/28/18 at 21:00 Cyanocobalamin (Vitamin B12) 1,000 mcg DAILY PO Last administered on 06/09/18 10:20; Admin Dose 1,000 MCG; Start 05/29/18 at 09:00; Status Hold Multivitamins/ Minerals (Theragran-M) 1 tab DAILY PO Last administered on 06/16/18 09:28; Admin Dose 1 TAB; Start 05/29/18 at 09:00 Pantoprazole (Protonix Tab) 40 mg BID@06,18 PO Last administered on 06/17/18 06:09; Admin Dose 40 MG; Start 06/02/18 at 18:00 Polyethylene Glycol (Miralax) 17 gm DAILY PO Last administered on 06/16/18 09:28; Admin Dose 17 GM; Start 06/04/18 at 11:30 Carvedilol (Coreg) 6.25 mg BID PO Last administered on 06/15/18 09:47; Admin Dose 6.25 MG; Start 06/09/18 at 21:00 Sacubitril/ Valsartan (Entresto 24 Mg-26 Mg) 1 tab BID PO Last administered on 06/15/18 21:45; Admin Dose 1 TAB; Start 06/12/18 at 21:00 Levofloxacin (Levaquin) 500 mg DAILY@06 PO Last administered on 06/17/18 06:09; Admin Dose 500 MG; Start 06/14/18 at 23:30; Stop 06/18/18 at 23:55 Assessment/Plan Hospital Course (Demo Recall) 1. Recurrent lower GI bleed on anticoagulation: Currently off Eliquis 2. 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 Severe cardiomyopathy 4. Sick sinus syndrome with permanent pacemaker 5. History of aortic stenosis status post transcutaneous aortic valve replacement 6 permissive hypertension 7. Chronic kidney disease 8. Anemia secondary to GI bleeding 9. anemia: s/p transfusions 10. Pericardial effusion seen on CT scan Recommendations: Will cont coreg and inc as tolerated . Transfusion as needed. Patient with recurrent bleeding and anemia follow-up with GI recommendations regarding bleeding and anemia will cont entresto avoid fluid overload awaiting transfer to [facility] for higher level of care for GI workup Thank you for his referral. We will follow-up with you KAYLAH BAXTER MD [facility] KAYLAH BAXTER MD Jun 17, 2018 08:09
--- NOTE | 2018-06-17 08:26 | PN ---
DATE: 06/17/2018 SUBJECTIVE: The patient is stable, no events overnight. No fevers, chills, nausea, or vomiting. OBJECTIVE: VITAL SIGNS: Blood pressure is 127/58, pulse 60, respirations 18, temperature 98.1. HEENT: Head is normocephalic. NECK: Supple. HEART: Regular rate. LUNGS: Show diminished breath sounds at the base. ABDOMEN: Soft, nontender to palpation. No rebound or guarding. EXTREMITIES: Negative for clubbing, cyanosis, no edema. DERMATOLOGIC: No rashes. MUSCULOSKELETAL: No joint effusion. NEUROLOGIC: No change in exam. MEDICATIONS: The patient's medications have been reviewed. LABORATORY DATA: Reviewed. ASSESSMENT AND PLAN: 1. Nonoliguric acute kidney injury on top of chronic kidney disease. Etiology of acute kidney injur y is secondary to hemodynamics. Renal function is improved. We will continue to monitor renal funct ion closely. No evidence of contrast-associated nephropathy. 2. Chronic kidney disease. Renal function is overall stable. Continue current treatment plan. Con tinue disease factor modification. 3. Mild hypernatremia, resolved. 4. Mineral bone disorder. Monitor calcium and phosphorus levels. 5. Anemia with active GI bleeding. Underlying source is unclear. The patient is pending possible t ransfer to a tertiary center for further evaluation. Continue to monitor hemoglobin and hematocrit l evels, and transfuse as needed. 6. Atrial fibrillation. Continue medical management. 7. Congestive heart failure. Continue current treatment plan. Follow up with cardiology. 8. Hypothyroidism. Continue Synthroid. 9. History of dementia. 10. Dyslipidemia. Continue statin therapy. Dictated By: CATRACHO PALENCIA DO NR/NTS Conf#: [id number] DID#: [id number] CC: JO SANCHEZ MD; LES SAUNDERS; SHIRA ANTOINE MD;*EndCC*
[2018-06-17] MEDS: CALCIUM CARBONATE 1.25 GM TAB PO SCH ×2 (09:00→21:06)
[2018-06-17] MEDS: MULTIVITAMINS/MINERALS TAB PO SCH (09:00)
[2018-06-17] MEDS: POLYETHYLENE GLYCOL 17 GM PACKET PO SCH (09:01)
[2018-06-17] MEDS: SACUBITRIL/VALSARTAN (24mg-26mg) TABLET PO SCH ×2 (09:01→21:06)
[2018-06-17] MEDS: BALSAM PERU/CASTOR OIL 60 GM TUBE TOP SCH ×2 (09:11→21:00)
[2018-06-17] MEDS ORDERED: SOD CHLORIDE 0.9% 250 ML IV* ONE (10:46)
[2018-06-17 13:47] VITALS: BP 111/54; PULSE 60; RESP 18
--- NOTE | 2018-06-17 13:52 | PN ---
Date/Time of Note Date/Time of Note DATE: 06/17/18 TIME: 13:51 Assessment/Plan VTE Prophylaxis Risk score (from Ns)>0 risk: 7 SCD applied (from Ns): Yes Pharmacological prophylaxis: other (scds) Lines/Catheters IV Catheter Type (from Nrsg): PICC Line Central line still needed: Yes (meds) Urinary Cath still in place: No Assessment/Plan Hospital Course Assessment: GI bleeding/hematochezia/melena. Likely right colon diverticular source EGD 05/29/2018 distal esophagitis/gastritis no active bleeding Colonoscopy 05/11/2018 sun-diverticulosis with evidence of recent bleeding Colonoscopy 06/10/18- Sun-diverticulosis, no active bleeding IR embolization -no bleeding found Anemia Anticoagulation- on hold Dementia A-fib CKD CHF Thrombocytopenia Plan: Transfer to tertiary center consider double balloon enteroscopy versus capsule endoscopy to assess for small bowel [facility] "Bleeding Service" Dr Tafoya [phone] Continue to monitor, no more procedures at this time Monitor H&H - transfuse as needed Continue supportive measures. Patient seen in collaboration with Dr. Hendrickson/Barber Subjective: Course reviewed with nursing staff Patient interviewed and examined All labs, imaging and other results reviewed Pt with on-going bleed it is imperative she is transferred for further work-up Pt currently receiving blood transfusion, c/o rectal bleeding this am. PHYSICAL EXAMINATION: GENERAL: Alert & oriented x 3 SKIN: No lesions CHEST: Inspection within normal limits. CARDIOVASCULAR: Heart: Regular rate and rhythm RESPIRATORY: Lungs clear to auscultation GASTROINTESTINAL AND LIVER: Abdomen: Soft, non tenderness, non-distended, no hernias, no masses, no organomegaly, no ascites, no guarding, no rebound tenderness, normoactive bowel sounds. Rectal: Deferred. GENITOURINARY: Female genitalia within normal limits. EXTREMITIES: No cyanosis, clubbing or edema. [place] [id number] Radiology Main Line: [phone] DIAGNOSTIC IMAGING REPORT Patient: JOSUÉ JOHNSON : 1935 Age: 82 Sex: F MR #: [id number] DOS: 06/13/18 0600 Ordering MD: LES SAUNDERS Location: MS1 Room/Bed: 429-A PROCEDURE: CT angiogram and enterography with and without intravenous contrast. CLINICAL INDICATION: GI bleeding . TECHNIQUE: CT angiogram and enterography scan of the abdomen and pelvis with and without intravenous contrast was performed on a multi-detector high- resolution CT scanner. The patient was scanned before and following the uncomplicated intravenous administration of 120 cc of Omnipaque 350 contrast. Coronal and sagittal reformatted images were obtained from the axial source images. CTDIvol 53.21 mGy, and DLP 2906.64 mGy.cm. Volumetric acquisition of the abdomen and pelvis was performed following the enteric administration of Volumen contrast in order to optimize bowel distension and uncomplicated intravenous administration of 100 cc of Omnipaque 300. One or more of the following dose reduction techniques were used: - Automated exposure control. - Adjustment of the mA and/or kV according to patient size. - Use of iterative reconstruction technique. COMPARISON: XA SC 06/11/2018; NM 06/09/2018; CT 05/30/2018 FINDINGS: Lower thorax: Increased moderate bilateral pleural effusions with adjacent atelectasis / consolidation of the bilateral lung bases. Stable to slight i ncreased moderate pericardial effusion. Prosthetic aortic valve. Partially visualized cardiac pacer wire in the right ventricle. There are coronary artery calcifications. Liver: Stable scattered sub-centimeter hypoattenuating lesions in the liver which are too small to characterize . Portal vein is patent. Biliary: Postsurgical changes of cholecystectomy. Mild prominence of the bile ducts, likely related to post-cholecystectomy state. Pancreas: Stable atrophy of the pancreas. Spleen: Normal. Adrenal Glands: Normal. Urinary: Stable atrophy and cortical scarring of the bilateral kidneys, worse on the left. Stable bilateral renal cysts. No hydronephrosis. The ureters and bladder, as visualized, are unremarkable. Gastrointestinal: There is thickening of the distal stomach. There is mild thickening of the cecum and proximal ascending colon with mild adjacent stranding. Mild layering hyperdensity within the ascending colon may represent a contrast versus ingested material.. Sigmoid diverticulosis without evidence of diverticulitis. Lymph nodes: No enlarged abdominal or pelvic lymph nodes. Vascular: Extensive atherosclerotic calcifications of the aorta and major branch es. Atherosclerotic calcifications at the ostium of the celiac artery causes mild stenosis. There is ectasia of the right common iliac artery measuring 1.6 cm, with penetrating ulcer. Peritoneum/mesentery: Trace free fluid in the pelvis. No free air. Reproductive organs: Normal. Musculoskeletal: Degenerative changes of the spine. IMPRESSION: 1. Mild thickening and adjacent stranding of the cecum and ascending colon. Small layering mild hyperdensity within the cecum and ascending colon may represent contrast versus ingested contents. However, given findings of recent prior nuclear medicine bleeding scan, findings are concerning for persistent gastrointestinal bleeding. 2. Mild thickening of the distal stomach may be due to underdistension or gastritis. 3. Extensive atherosclerotic vascular calcifications. 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 4. Interval increased moderate bilateral pleural effusions, with adjacent atelectasis / consolidation. 5. Moderate pericardial effusion. Result Diagram: 06/17/18 0500 06/17/18 0500 Results 24hrs Laboratory Tests Test 06/16/18 20:50 06/17/18 05:00 Hemoglobin 8.2 L 7.4 L Hematocrit 25.5 L 23.2 L White Blood Count 6.2 Red Blood Count 2.41 L Mean Corpuscular Volume 96.3 Mean Corpuscular Hemoglobin 30.7 Mean Corpuscular Hemoglobin Concent 31.9 L Red Cell Distribution Width 17.1 H Platelet Count 91 L Mean Platelet Volume 9.6 Immature Granulocytes % 0.600 H Neutrophils % 74.4 Lymphocytes % 11.8 L Monocytes % 9.7 Eosinophils % 2.9 Basophils % 0.6 Nucleated Red Blood Cells % 0.0 Immature Granulocytes # 0.040 H Neutrophils # 4.6 Lymphocytes # 0.7 L Monocytes # 0.6 Eosinophils # 0.2 Basophils # 0.0 Nucleated Red Blood Cells # 0.0 Sodium Level 137 Potassium Level 4.2 Chloride Level 109 Carbon Dioxide Level 26 Anion Gap 2 L Blood Urea Nitrogen 22 H Creatinine 1.18 H Est Glomerular Filtrat Rate mL/min Glucose Level 83 Calcium Level 8.9 Exam/Review of Systems Exam Vitals Vital Signs Date Temp Pulse Resp B/P (MAP) Pulse Ox O2 O2 Flow FiO2 Time Delivery Rate 06/17/18 98.1 60 18 127/58 98 07:30 (81) 06/16/18 Nasal 14:52 Cannula 06/14/18 2 13:12 Intake and Output 06/16/18 06/16/18 06/17/18 1515:00 23:00 07:00 IntakeIntake Total 1400 ml 300 ml 440 ml OutputOutput Total 600 ml BalanceBalance 800 ml 300 ml 440 ml Results Results 24hrs Laboratory Tests Test 06/16/18 20:50 06/17/18 05:00 Hemoglobin 8.2 L 7.4 L Hematocrit 25.5 L 23.2 L White Blood Count 6.2 Red Blood Count 2.41 L Mean Corpuscular Volume 96.3 Mean Corpuscular Hemoglobin 30.7 Mean Corpuscular Hemoglobin Concent 31.9 L Red Cell Distribution Width 17.1 H Platelet Count 91 L Mean Platelet Volume 9.6 Immature Granulocytes % 0.600 H Neutrophils % 74.4 Lymphocytes % 11.8 L Monocytes % 9.7 Eosinophils % 2.9 Basophils % 0.6 Nucleated Red Blood Cells % 0.0 Immature Granulocytes # 0.040 H Neutrophils # 4.6 Lymphocytes # 0.7 L Monocytes # 0.6 Eosinophils # 0.2 Basophils # 0.0 Nucleated Red Blood Cells # 0.0 Sodium Level 137 Potassium Level 4.2 Chloride Level 109 Carbon Dioxide Level 26 Anion Gap 2 L Blood Urea Nitrogen 22 H Creatinine 1.18 H Est Glomerular Filtrat Rate mL/min Glucose Level 83 Calcium Level 8.9 Medications Medication Current Medications IV Flush (NS 3 ml) 3 ml PER PROTOCOL IV ; Start 05/28/18 at 19:00 Ondansetron HCl (Zofran Inj) 4 mg Q6H PRN IV NAUSEA/VOMITING; Start 05/28/18 at 19:00 Acetaminophen (Tylenol Tab) 650 mg Q6H PRN PO .PAIN 1-3 OR TEMP Last ad ministered on 06/17/18at 07:54; Admin Dose 650 MG; Start 05/28/18 at 19:00 Acetaminophen/ Hydrocodone Bitart ([place] (5/325)) 1 tab Q6H PRN PO .MOD PAIN 4- 6; Start 05/28/18 at 19:00 Docusate Sodium (Colace) 100 mg Q12H PRN PO .CONSTIPATION Last administered on 06/07/18at 06:57; Admin Dose 100 MG; Start 05/28/18 at 19:00 Magnesium Hydroxide (Milk Of Mag) 30 ml DAILY PRN PO .CONSTIPATION Last adminis tered on 06/06/18at 06:47; Admin Dose 30 ML; Start 05/28/18 at 19:00 Albuterol/ Ipratropium (Duoneb) 3 ml Q4H RESP THERAPY PRN HHN SHORTNESS OF BREATH; Start 05/28/18 at 19:00 Hydralazine HCl (Apresoline) 10 mg Q6H PRN IV ELEVATED BLOOD PRESSURE; Start 05/28/18 at 19:00 Nitroglycerin (Nitroglycerin (Sl Tab) 0.4 Mg) 1 tab Q5M PRN SL ANGINA; Start 05/28/18 at 19:00 Atorvastatin Calcium (Lipitor) 10 mg QHS PO Last administered on 06/16/18 20:23; Admin Dose 10 MG; Start 05/28/18 at 21:00 Levothyroxine Sodium (Synthroid) 100 mcg BEFORE BREAKFAST PO Last administered on 06/17/18 06:09; Admin Dose 100 MCG; Start 05/29/18 at 07:00 Calcium Carbonate (Oyster Shell Calcium) 1.25 gm BID PO Last administered on 06/17/18 09:00; Admin Dose 1.25 GM; Start 05/28/18 at 21:00 Cyanocobalamin (Vitamin B12) 1,000 mcg DAILY PO Last administered on 06/09/18 10:20; Admin Dose 1,000 MCG; Start 05/29/18 at 09:00; Status Hold Multivitamins/ Minerals (Theragran-M) 1 tab DAILY PO Last administered on 09:00; Admin Dose 1 TAB; Start 05/29/18 at 09:00 Pantoprazole (Protonix Tab) 40 mg BID@ PO Last administered on 06/17/18 06:09; Admin Dose 40 MG; Start 06/02/18 at 18:00 Carvedilol (Coreg) 6.25 mg BID PO Last administered on 06/17/18 09:07; Admin Dose 6.25 MG; Start 06/09/18 at 21:00 Sacubitril/ Valsartan (Entresto 24 Mg-26 Mg) 1 tab BID PO Last administered on 06/17/18 09:01; Admin Dose 1 TAB; Start 06/12/18 at 21:00 Levofloxacin (Levaquin) 500 mg DAILY@06 PO Last administered on 06/17/18 06:09; Admin Dose 500 MG; Start 06/14/18 at 23:30; Stop 06/18/18 at 23:55 JERROD MORGAN Jun 17, 2018 13:52
--- NOTE | 2018-06-17 14:13 | CONS ---
Assessment/Plan Assessment/Plan Hospital Course (Demo Recall) # Thrombocytopenia- Platelet did slightly drop to 100 -she had normal plt count of 201K as an outpt so the thrombocytopenia is a new development thrombocytopenia is likely secondary to consumption from the brisk GI Bleed. no DIC or TTP -I do not feel that DDAVP will add much to her situation. THis was discussed with her daughter who is at the bedside # Diverticular GI bleed s/p recent scopes with EGD 05/29/2018 distal esophagitis/gastritis no active bleeding Colonoscopy 05/11/2018 sun-diverticulosis with evidence of recent bleeding Nuclear medicine bleeding scan positive -pt to transfer to higher level of care given we are not able to control this lower GI bleed. PT will likely need surgery # Anemia- -Hg did drop to < 8; to get 2 units PRBC transfuse to keep hgb > 7 Plan to transfer patient [facility] for higher level of care. Consultation Date/Type/Reason Admit Date/Time May 28, 2018 at 19:26 Initial Consult Date 06/04/18 Type of Consult Hematology Reason for Consultation anemia Requesting Provider: SHIRA ANTOINE MD Date/Time of Note DATE: 06/17/18 TIME: 14:11 24 HR Interval Summary Free Text/Dictation still with rectal bleeding. scheduled for 2 units of PRBCs today Exam/Review of Systems Exam Vitals Vital Signs Date Temp Pulse Resp B/P (MAP) Pulse Ox O2 O2 Flow FiO2 Time Delivery Rate 06/17/18 98.0 60 18 111/54 98 13:47 (73) 06/16/18 Nasal 14:52 Cannula 06/14/18 2 13:12 Intake and Output 06/16/18 06/16/18 06/17/18 1515:00 23:00 07:00 IntakeIntake Total 1400 ml 300 ml 440 ml OutputOutput Total 600 ml BalanceBalance 800 ml 300 ml 440 ml Constitutional: alert, oriented Psych: no complaints Head: normocephalic Eyes: nl conjunctiva ENMT: nl external ears & nose Neck: supple Respiratory: clear to auscultation Cardiovascular: regular rate and rhythm Gastrointestinal: soft Musculoskeletal: nl extremities to inspection Results Result Diagram: 06/17/18 0500 06/17/18 0500 Results 24hrs Laboratory Tests Test 06/16/18 20:50 06/17/18 05:00 Hemoglobin 8.2 L 7.4 L Hematocrit 25.5 L 23.2 L White Blood Count 6.2 Red Blood Count 2.41 L Mean Corpuscular Volume 96.3 Mean Corpuscular Hemoglobin 30.7 Mean Corpuscular Hemoglobin Concent 31.9 L Red Cell Distribution Width 17.1 H Platelet Count 91 L Mean Platelet Volume 9.6 Immature Granulocytes % 0.600 H Neutrophils % 74.4 Lymphocytes % 11.8 L Monocytes % 9.7 Eosinophils % 2.9 Basophils % 0.6 Nucleated Red Blood Cells % 0.0 Immature Granulocytes # 0.040 H Neutrophils # 4.6 Lymphocytes # 0.7 L Monocytes # 0.6 Eosinophils # 0.2 Basophils # 0.0 Nucleated Red Blood Cells # 0.0 Sodium Level 137 Potassium Level 4.2 Chloride Level 109 Carbon Dioxide Level 26 Anion Gap 2 L Blood Urea Nitrogen 22 H Creatinine 1.18 H Est Glomerular Filtrat Rate mL/min Glucose Level 83 Calcium Level 8.9 Medications Medication Current Medications IV Flush (NS 3 ml) 3 ml PER PROTOCOL IV ; Start 05/28/18 at 19:00 Ondansetron HCl (Zofran Inj) 4 mg Q6H PRN IV NAUSEA/VOMITING; Start 05/28/18 at 19:00 Acetaminophen (Tylenol Tab) 650 mg Q6H PRN PO .PAIN 1-3 OR TEMP Last administered on 06/17/18at 07:54; Admin Dose 650 MG; Start 05/28/18 at 19:00 Acetaminophen/ Hydrocodone Bitart ([place] (5/325)) 1 tab Q6H PRN PO .MOD PAIN 4- 6; Start 05/28/18 at 19:00 Docusate Sodium (Colace) 100 mg Q12H PRN PO .CONSTIPATION Last administered on 06/07/18at 06:57; Admin Dose 100 MG; Start 05/28/18 at 19:00 Magnesium Hydroxide (Milk Of Mag) 30 ml DAILY PRN PO .CONSTIPATION Last administered on 06/06/18at 06:47; Admin Dose 30 ML; Start 05/28/18 at 19:00 Albuterol/ Ipratropium (Duoneb) 3 ml Q4H RESP THERAPY PRN HHN SHORTNESS OF BREATH; Start 05/28/18 at 19:00 Hydralazine HCl (Apresoline) 10 mg Q6H PRN IV ELEVATED BLOOD PRESSURE; Start 05/28/18 at 19:00 Nitroglycerin (Nitroglycerin (Sl Tab) 0.4 Mg) 1 tab Q5M PRN SL ANGINA; Start 05/28/18 at 19:00 Atorvastatin Calcium (Lipitor) 10 mg QHS PO Last administered on 06/16/18 20:23; Admin Dose 10 MG; Start 05/28/18 at 21:00 Levothyroxine Sodium (Synthroid) 100 mcg BEFORE BREAKFAST PO Last administered on 06/17/18 06:09; Admin Dose 100 MCG; Start 05/29/18 at 07:00 Calcium Carbonate (Oyster Shell Calcium) 1.25 gm BID PO Last administered on 06/17/18 09:00; Admin Dose 1.25 GM; Start 05/28/18 at 21:00 Cyanocobalamin (Vitamin B12) 1,000 mcg DAILY PO Last administered on 06/09/18 10:20; Admin Dose 1,000 MCG; Start 05/29/18 at 09:00; Status Hold Multivitamins/ Minerals (Theragran-M) 1 tab DAILY PO Last administered on 06/17/18 09:00; Admin Dose 1 TAB; Start 05/29/18 at 09:00 Pantoprazole (Protonix Tab) 40 mg BID@ PO Last administered on 06/17/18 06:09; Admin Dose 40 MG; Start 06/02/18 at 18:00 Carvedilol (Coreg) 6.25 mg BID PO Last administered on 06/17/18 09:07; Admin Dose 6.25 MG; Start 06/09/18 at 21:00 Sacubitril/ Valsartan (Entresto 24 Mg-26 Mg) 1 tab BID PO Last administered on 06/17/18 09:01; Admin Dose 1 TAB; Start 06/12/18 at 21:00 Levofloxacin (Levaquin) 500 mg DAILY@06 PO Last administered on 06/17/18 06:09; Admin Dose 500 MG; Start 06/14/18 at 23:30; Stop 06/18/18 at 23:55 CHARITY OG M.D. Jun 17, 2018 14:13
--- NOTE | 2018-06-17 14:38 | PN ---
Date/Time of Note Date/Time of Note DATE: 06/17/18 TIME: 14:37 Assessment/Plan VTE Prophylaxis Risk score (from Ns)>0 risk: 7 SCD applied (from Ns): Yes Pharmacological prophylaxis: NA/contraindicated Pharm contraindication: bleeding Lines/Catheters [facility]from [facility] PICC Line Central line still needed: Yes Urinary Cath still in place: No Assessment/Plan Assessment/Plan ASSESSMENT AND PLAN: 82-year-old female coming in with history of paroxysmal atrial fibrillation on Eliquis, transcatheter aortic valve replacement, conges tive heart failure, recent lower gastrointestinal bleeding 2 weeks ago, hospitalized for that, status post colonoscopy with internal hemorrhoids and diverticulosis, presents with continued lower gastrointestinal bleeding and anemia, hemoglobin 5.9. 1. Anemia, lower gastrointestinal bleeding-likely secondary to diverticular source. On presentation the hemoglobin 5.9. Has had 4 separate occurrences where she needed PRBC transfusions this admission, and again we will get another transfusion now. - Continue to hold all anticoagulants including Eliquis (held since admission 05/28) -Despite positive tagged RBC scan results, colonoscopy, as well as IR embolization procedure again did not show any active bleeding. CT enterography results reviewed as well. As of now unable to localize site of what is likely a bleed -and general surgery team evaluated the patient as well yesterday. -Follow-up GI, cardiology, renal, and surgery recommendations. -Again, consults now agreeing patient needs to be transferred to higher level of care for either double balloon enterography to be performed, capsule test, or other test to identify the source of bleed that we cannot perform here. Family is in agreement for this, mental health case manager actively working on this now. 2. Thrombocytopenia- Platelets initially were found to be in the 30-50 range earlier during her admission, had been trending up the last few days but today is down 99, likely having a slow downtrend again as a result from her still active bleeding occurring. -Monitor, follow-up further hematology oncology recommendations, -We will check another H&H tonight. 3. History of congestive heart failure. BNP 10,000 this admission. - Continue current cardiac medications cautiously -Had been holding Entresto but since the creatinine improved today will restart today. 4. High cholesterol. -Continue statin 5. History of transcatheter aortic valve replacement (TAVR). - Carefully continue current cardiac medications per cardiology recommendations 6. History of paroxysmal atrial fibrillation. Presently rate controlled - again, continue to monitor heart rate on telemetry. - Again, holding off on anticoagulation given her gastrointestinal bleeding presently right now. - Continue Coreg and follow further cardiology recommendations 7. SHANEKA -slowly improving with intermittent doses of IV fluids cautiously given given her CHF history -Monitor for now, follow-up renal recs. 8. Gastrointestinal prophylaxis. Again, continue on PPI IV b.i.d. 9. Deep venous thrombosis prophylaxis. SCDs - avoid anticoagulants given GI bleeding Dispo: Plan for transfer to higher level of care for double balloon enteroscopy. Family is in agreement. Result Diagram: 06/17/18 0500 06/17/18 0500 Subjective 24 Hr Interval Summary Free Text/Dictation Another large bloody bowel movement this morning with Hgb drop, requiring another transfusion. Exam/Review of Systems Exam Vitals Vital Signs Date Temp Pulse Resp B/P (MAP) Pulse Ox O2 O2 Flow FiO2 Time Delivery Rate 06/17/18 98.0 60 18 111/54 98 13:47 (73) 06/16/18 Nasal 14:52 Cannula 06/14/18 2 13:12 Intake and Output 06/16/18 06/16/18 06/17/18 1515:00 23:00 07:00 IntakeIntake Total 1400 ml 300 ml 440 ml OutputOutput Total 600 ml BalanceBalance 800 ml 300 ml 440 ml Exam GENERAL: lying in bed, NAD HEENT: Pupils equal, round, reactive to light. Extraocular muscles intact. NECK: Supple. No thyromegaly. LUNGS: Clear to auscultation bilaterally. CARDIOVASCULAR: S1 and S2 heard. No rubs or gallops. ABDOMEN: Soft, nontender, nondistended. Normal bowel sounds. No rebound or guarding. MUSCULOSKELETAL: No lower extremity edema bilaterally, some mild upper extr emity swelling bilaterally in the arms. PICC site in right upper extremity appears clean dry and intact otherwise Results Results 24hrs Laboratory Tests Test 06/16/18 20:50 06/17/18 05:00 Hemoglobin 8.2 L 7.4 L Hematocrit 25.5 L 23.2 L White Blood Count 6.2 Red Blood Count 2.41 L Mean Corpuscular Volume 96.3 Mean Corpuscular Hemoglobin 30.7 Mean Corpuscular Hemoglobin Concent 31.9 L Red Cell Distribution Width 17.1 H Platelet Count 91 L Mean Platelet Volume 9.6 Immature Granulocytes % 0.600 H Neutrophils % 74.4 Lymphocytes % 11.8 L Monocytes % 9.7 Eosinophils % 2.9 Basophils % 0.6 Nucleated Red Blood Cells % 0.0 Immature Granulocytes # 0.040 H Neutrophils # 4.6 Lymphocytes # 0.7 L Monocytes # 0.6 Eosinophils # 0.2 Basophils # 0.0 Nucleated Red Blood Cells # 0.0 Sodium Level 137 Potassium Level 4.2 Chloride Level 109 Carbon Dioxide Level 26 Anion Gap 2 L Blood Urea Nitrogen 22 H Creatinine 1.18 H Est Glomerular Filtrat Rate mL/min Glucose Level 83 Calcium Level 8.9 Medications Medication Current Medications IV Flush (NS 3 ml) 3 ml PER PROTOCOL IV ; Start 05/28/18 at 19:00 Ondansetron HCl (Zofran Inj) 4 mg Q6H PRN IV NAUSEA/VOMITING; Start 05/28/18 at 19:00 Acetaminophen (Tylenol Tab) 650 mg Q6H PRN PO .PAIN 1-3 OR TEMP Last administered on 06/17/18at 07:54; Admin Dose 650 MG; Start 05/28/18 at 19:00 Acetaminophen/ Hydrocodone Bitart ([place] (5/325)) 1 tab Q6H PRN PO .MOD PAIN 4- 6; Start 05/28/18 at 19:00 Docusate Sodium (Colace) 100 mg Q12H PRN PO .CONSTIPATION Last administered on 06/07/18at 06:57; Admin Dose 100 MG; Start 05/28/18 at 19:00 Magnesium Hydroxide (Milk Of Mag) 30 ml DAILY PRN PO .CONSTIPATION Last administered on 06/06/18at 06:47; Admin Dose 30 ML; Start 05/28/18 at 19:00 Albuterol/ Ipratropium (Duoneb) 3 ml Q4H RESP THERAPY PRN HHN SHORTNESS OF BREATH; Start 05/28/18 at 19:00 Hydralazine HCl (Apresoline) 10 mg Q6H PRN IV ELEVATED BLOOD PRESSURE; Start 05/28/18 at 19:00 Nitroglycerin (Nitroglycerin (Sl Tab) 0.4 Mg) 1 tab Q5M PRN SL ANGINA; Start 05/28/18 at 19:00 Atorvastatin Calcium (Lipitor) 10 mg QHS PO Last administered on 06/16/18 20:23; Admin Dose 10 MG; Start 05/28/18 at 21:00 Levothyroxine Sodium (Synthroid) 100 mcg BEFORE BREAKFAST PO Last administered on 06/17/18 06:09; Admin Dose 100 MCG; Start 05/29/18 at 07:00 Calcium Carbonate (Oyster Shell Calcium) 1.25 gm BID PO Last administered on 06/17/18 09:00; Admin Dose 1.25 GM; Start 05/28/18 at 21:00 Cyanocobalamin (Vitamin B12) 1,000 mcg DAILY PO Last administered on 06/09/18 10:20; Admin Dose 1,000 MCG; Start 05/29/18 at 09:00; Status Hold Multivitamins/ Minerals (Theragran-M) 1 tab DAILY PO Last administered on 06/17/18 09:00; Admin Dose 1 TAB; Start 05/29/18 at 09:00 Pantoprazole (Protonix Tab) 40 mg BID@,18 PO Last administered on 06/17/18 06:09; Admin Dose 40 MG; Start 06/02/18 at 18:00 Carvedilol (Coreg) 6.25 mg BID PO Last administered on 06/17/18 09:07; Admin Dose 6.25 MG; Start 06/09/18 at 21:00 Sacubitril/ Valsartan (Entresto 24 Mg-26 Mg) 1 tab BID PO Last administered on 06/17/18 09:01; Admin Dose 1 TAB; Start 06/12/18 at 21:00 Levofloxacin (Levaquin) 500 mg DAILY@06 PO Last administered on 06/17/18 06:09; Admin Dose 500 MG; Start 06/14/18 at 23:30; Stop 06/18/18 at 23:55 SHIRA ANTOINE MD Jun 17, 2018 14:38
[2018-06-17 19:55] VITALS: BP 105/59; PULSE 60; RESP 20
[2018-06-17] MEDS: ATORVASTATIN 10 MG TAB PO SCH (21:05)
[2018-06-18 03:00] VITALS: BP_SYST 126; BP_SYST 152; BP_DIAS 64; BP_DIAS 71; PULSE 62; PULSE 98; RESP 20
[2018-06-18] MEDS: LEVOFLOXACIN 500 MG TAB PO SCH (06:19)
[2018-06-18] MEDS: PANTOPRAZOLE (EC) 40 MG TAB PO SCH ×2 (06:20→17:21)
[2018-06-18] MEDS: LEVOTHYROXINE 100 MCG TAB PO SCH (06:20)
--- NOTE | 2018-06-18 08:37 | PN ---
DATE: 06/18/2018 SUBJECTIVE: The patient is stable, no events overnight. No fevers, chills, nausea, or vomiting. OBJECTIVE: VITAL SIGNS: Blood pressure is 152/71, respirations 20, pulse 62, temperature 98.9. HEENT: Head is normocephalic. NECK: Supple. HEART: Regular rate. LUNGS: Show diminished breath sounds at the base. ABDOMEN: Soft, nontender to palpation without rebound or guarding. EXTREMITIES: Negative for clubbing, cyanosis, no edema. DERMATOLOGIC: No rashes. MUSCULOSKELETAL: No joint effusion. NEUROLOGIC: No change in exam. MEDICATIONS: Reviewed. LABORATORY DATA: On 06/18/2018 was reviewed. ASSESSMENT AND PLAN: 1. Nonoliguric acute kidney injury on top of chronic kidney disease. Etiology is secondary to hemod ynamics. Renal function has improved. No evidence of contrast-associated nephropathy. I will jessica nue current treatment plans, supportive care, renally dose all medicines. 2. Chronic kidney disease. The patient's renal function appears to be stabilizing. Continue curren t treatment plan. Continue disease factor modification. 3. Mild hypernatremia, resolved. 4. Mineral bone disorder, monitor calcium and phosphorus levels. 5. Anemia with active GI bleeding. Underlying source is unclear. The patient is pending possible t ransfer to a tertiary center for further evaluation. Continue to monitor hemoglobin and hematocrit l evels, transfuse as needed. 6. Atrial fibrillation. Continue medical management. 7. History of congestive heart failure. Continue current treatment plan. 8. Hypothyroidism. Continue Synthroid. 9. History of dementia. 10. Dyslipidemia. Continue statin therapy. Dictated By: CATRACHO PALENCIA DO NR/NTS Conf#: [id number] DID#: [id number] CC: LES SAUNDERS; JO SANCHEZ MD; SHRIA ANTOINE MD;*End*
[2018-06-18 08:49] VITALS: BP 128/60; PULSE 59; RESP 18
[2018-06-18] MEDS: MULTIVITAMINS/MINERALS TAB PO SCH (08:50)
[2018-06-18] MEDS: SACUBITRIL/VALSARTAN (24mg-26mg) TABLET PO SCH ×2 (08:50→21:32)
[2018-06-18] MEDS: CALCIUM CARBONATE 1.25 GM TAB PO SCH ×2 (08:50→21:32)
--- NOTE | 2018-06-18 08:54 | CONS ---
Consult Date/Type/Reason Admit Date/Time May 28, 2018 at 19:26 Initial Consult Date 05/29/18 Type of Consultation: cv Requesting Provider: SHIRA ANTOINE MD Date/Time of Note DATE: 06/18/18 TIME: 08:52 Subjective Interventional cardiology follow-up progress note Subjective: Discussed with staff and telemetry was reviewed. Patient is off tele now Discussed with the patient's family including daughters at bedside + again more rectal bleeding She denies any chest pain or pressure to me has any palpitation to me. According to the daughter patient was sitting in the chair yesterday and became lightheaded at the back on the bed s/p colo again on 06/10 Objective: General: Elderly female no acute distress HEENT: NC/AT. pupils are equal. round. NECK: . no stridor. CV: RRR. systolic murmur; no gallop or rubs. PULM: no wheezing or rhonchi. GI: SOFT, NT, ND, no rebound or guarding Extremity: trace B/L LE edema. no clubbing. neuro: awake and alert, Psych: calm and pleasant rectal: deferred Abdominal/pelvic CT done May 30, 2018 shows: No evidence of urolithiasis, obstructive uropathy or diverticulitis. Diverticulosis. Nonvisualization appendix. No bowel mass or obstruction is seen. Cholecystectomy with presumed physiologic intra and extrahepatic bile duct dilatation. Correlation with serum bilirubin levels could be performed if clinically indicated. Aortic valve replacement. Cardiomegaly. Small pericardial effusion. Vascular calcifications. Senescent degenerative changes spine. Tiny right pleural effusion. Objective Vitals Vital Signs Date Temp Pulse Resp B/P (MAP) Pulse Ox O2 O2 Flow FiO2 Time Delivery Rate 06/18/18 98.9 62 20 152/71 95 03:00 (98) 06/16/18 Nasal 14:52 Cannula 06/14/18 2 13:12 Results/Medications Result Diagram: 06/18/18 0452 06/18/18 0452 Results 24 hrs Laboratory Tests Test 06/18/18 04:52 06/18/18 08:06 White Blood Count 6.6 Red Blood Count 3.04 #L Hemoglobin 9.3 #L Hematocrit 28.8 #L Mean Corpuscular Volume 94.7 Mean Corpuscular Hemoglobin 30.6 Mean Corpuscular Hemoglobin Concent 32.3 Red Cell Distribution Width 17.2 H Platelet Count 97 L Mean Platelet Volume 9.5 Immature Granulocytes % 0.600 H Neutrophils % 75.1 Lymphocytes % 10.8 L Monocytes % 9.3 Eosinophils % 3.3 Basophils % 0.9 Nucleated Red Blood Cells % 0.0 Immature Granulocytes # 0.040 H Neutrophils # 5.0 Lymphocytes # 0.7 L Monocytes # 0.6 Eosinophils # 0.2 Basophils # 0.1 Nucleated Red Blood Cells # 0.0 Sodium Level 138 Potassium Level 4.2 Chloride Level 105 Carbon Dioxide Level 27 Anion Gap 6 Blood Urea Nitrogen 23 H Creatinine 1.09 H Est Glomerular Filtrat Rate mL/min Glucose Level 86 Calcium Level 8.8 Lab Scanned Report BLOOD TRANSFUSION Home Meds Reported Medications Cyanocobalamin (Vitamin B-12) (Vitamin B-12) 1,000 Mcg Tab.subl, 1000 MCG SL DAILY 05/28/18 Multivitamin/Iron/Folic Acid (Centrum Adults Tablet) 1 Each Tablet, 1 EACH PO DAILY, TAB 05/28/18 Calcium Carbonate* (Calcium Carbonate*) 600 MG Ca Tab, 600 MG PO BID, TAB 05/28/18 Omeprazole* (Omeprazole*) 40 Mg Capsule.dr, 40 MG PO DAILY, #30 CAP 05/28/18 Atorvastatin Calcium (Atorvastatin Calcium) 10 Mg Tablet, 10 MG PO QHS, #30 TAB 05/28/18 Apixaban* (Eliquis*) 2.5 Mg Tablet, 2.5 MG PO DAILY, TAB 05/28/18 Sacubitril/Valsartan (Entresto 49 mg-51 mg Tablet) 1 Each Tablet, 1 EACH PO DAILY, TAB 05/28/18 Carvedilol* (Carvedilol*) 6.25 Mg Tablet, 6.25 MG PO DAILY, #60 TAB 05/28/18 Furosemide* (Furosemide*) 40 Mg Tablet, 40 MG PO DAILY, TAB 05/28/18 Spironolactone* (Aldactone*) 25 Mg Tablet, 25 MG PO DAILY, #30 TAB 05/28/18 Levothyroxine Sodium* (Levothyroxine Sodium*) 100 Mcg Tablet, 100 MCG PO BEFORE BREAKFAST, #30 TAB 05/28/18 Medications Current Medications IV Flush (NS 3 ml) 3 ml PER PROTOCOL IV ; Start 05/28/18 at 19:00 Ondansetron HCl (Zofran Inj) 4 mg Q6H PRN IV NAUSEA/VOMITING; Start 05/28/18 at 19:00 Acetaminophen (Tylenol Tab) 650 mg Q6H PRN PO .PAIN 1-3 OR TEMP Last administered on 06/17/18 18:59; Admin Dose 650 MG; Start 05/28/18 at 19:00 Acetaminophen/ Hydrocodone Bitart ([place] (5/325)) 1 tab Q6H PRN PO .MOD PAIN 4- 6; Start 05/28/18 at 19:00 Docusate Sodium (Colace) 100 mg Q12H PRN PO .CONSTIPATION Last administered on 06/07/18 06:57; Admin Dose 100 MG; Start 05/28/18 at 19:00 Magnesium Hydroxide (Milk Of Mag) 30 ml DAILY PRN PO .CONSTIPATION Last administered on 06/06/18 06:47; Admin Dose 30 ML; Start 05/28/18 at 19:00 Albuterol/ Ipratropium (Duoneb) 3 ml Q4H RESP THERAPY PRN HHN SHORTNESS OF BREATH; Start 05/28/18 at 19:00 Hydralazine HCl (Apresoline) 10 mg Q6H PRN IV ELEVATED BLOOD PRESSURE; Start 05/28/18 at 19:00 Nitroglycerin (Nitroglycerin (Sl Tab) 0.4 Mg) 1 tab Q5M PRN SL ANGINA; Start 05/28/18 at 19:00 Atorvastatin Calcium (Lipitor) 10 mg QHS PO Last administered on 06/17/18 21:05; Admin Dose 10 MG; Start 05/28/18 at 21:00 Levothyroxine Sodium (Synthroid) 100 mcg BEFORE BREAKFAST PO Last administered on 06/18/18 06:20; Admin Dose 100 MCG; Start 05/29/18 at 07:00 Calcium Carbonate (Oyster Shell Calcium) 1.25 gm BID PO Last administered on 06/17/18 21:06; Admin Dose 1.25 GM; Start 05/28/18 at 21:00 Cyanocobalamin (Vitamin B12) 1,000 mcg DAILY PO Last administered on 06/09/18 10:20; Admin Dose 1,000 MCG; Start 05/29/18 at 09:00; Status Hold Multivitamins/ Minerals (Theragran-M) 1 tab DAILY PO Last administered on 06/17/18 09:00; Admin Dose 1 TAB; Start 05/29/18 at 09:00 Pantoprazole (Protonix Tab) 40 mg BID@06,18 PO Last administered on 06/18/18 06:20; Admin Dose 40 MG; Start 06/02/18 at 18:00 Carvedilol (Coreg) 6.25 mg BID PO Last administered on 06/17/18 09:07; Admin Dose 6.25 MG; Start 06/09/18 at 21:00 Sacubitril/ Valsartan (Entresto 24 Mg-26 Mg) 1 tab BID PO Last administered on 06/17/18 21:06; Admin Dose 1 TAB; Start 06/12/18 at 21:00 Levofloxacin (Levaquin) 500 mg DAILY@06 PO Last administered on 06/18/18 06:19; Admin Dose 500 MG; Start 06/14/18 at 23:30; Stop 06/18/18 at 23:55 Assessment/Plan Hospital Course (Demo Recall) 1. Recurrent lower GI bleed on anticoagulation: Currently off Eliquis 2. 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 Severe cardiomyopathy 4. Sick sinus syndrome with permanent pacemaker 5. History of aortic stenosis status post transcutaneous aortic valve replacement 6 permissive hypertension 7. Chronic kidney disease 8. Anemia secondary to GI bleeding 9. anemia: s/p transfusions 10. Pericardial effusion seen on CT scan Recommendations: Will cont coreg and inc as tolerated . Transfusion as needed. Patient with recurrent bleeding and anemia follow-up with GI recommendations regarding bleeding and anemia will cont entresto avoid fluid overload awaiting transfer to [facility] for higher level of care for GI workup Thank you for his referral. We will follow-up with you KAYLAH BAXTER MD [facility] KAYLAH BAXTER MD Jun 18, 2018 08:53
[2018-06-18] MEDS: BALSAM PERU/CASTOR OIL 60 GM TUBE TOP SCH ×2 (09:00→21:33)
--- NOTE | 2018-06-18 11:03 | CONS ---
Assessment/Plan Assessment/Plan Hospital Course (Demo Recall) # Thrombocytopenia- Platelet stable around 100 -she had normal plt count of 201K as an outpt so the thrombocytopenia is a new development thrombocytopenia is likely secondary to consumption from the brisk GI Bleed. no DIC or TTP -I do not feel that DDAVP will add much to her situation as stated before # Diverticular GI bleed s/p recent scopes with EGD 05/29/2018 distal esophagitis/gastritis no active bleeding Colonoscopy 05/11/2018 sun-diverticulosis with evidence of recent bleeding Nuclear medicine bleeding scan positive -pt to transfer to higher level of care given we are not able to control this lower GI bleed. PT will likely need surgery # Anemia- -s/p 2 units PRBC transfuse to keep hgb > 7 Plan to transfer patient [facility] for higher level of care. Consultation Date/Type/Reason Admit Date/Time May 28, 2018 at 19:26 Initial Consult Date 06/04/18 Type of Consult Hematology Reason for Consultation anemia Requesting Provider: SHIRA ANTOINE MD Date/Time of Note DATE: 06/18/18 TIME: 11:01 24 HR Interval Summary Free Text/Dictation pt continues to have melena but Hg improved after blood transfusion Exam/Review of Systems Exam Vitals Vital Signs Date Temp Pulse Resp B/P (MAP) Pulse Ox O2 O2 Flow FiO2 Time Delivery Rate 06/18/18 98.2 59 18 128/60 97 08:49 (82) 06/16/18 Nasal 14:52 Cannula 06/14/18 2 13:12 Constitutional: alert, oriented, frail Psych: no complaints Head: normocephalic Eyes: nl conjunctiva ENMT: nl external ears & nose Neck: supple Respiratory: clear to auscultation Cardiovascular: regular rate and rhythm Gastrointestinal: soft Musculoskeletal: nl extremities to inspection Extremities: normal pulses Results Result Diagram: 06/18/18 0452 06/18/18 0452 Results 24hrs Laboratory Tests Test 06/18/18 04:52 06/18/18 08:06 White Blood Count 6.6 Red Blood Count 3.04 #L Hemoglobin 9.3 #L Hematocrit 28.8 #L Mean Corpuscular Volume 94.7 Mean Corpuscular Hemoglobin 30.6 Mean Corpuscular Hemoglobin Concent 32.3 Red Cell Distribution Width 17.2 H Platelet Count 97 L Mean Platelet Volume 9.5 Immature Granulocytes % 0.600 H Neutrophils % 75.1 Lymphocytes % 10.8 L Monocytes % 9.3 Eosinophils % 3.3 Basophils % 0.9 Nucleated Red Blood Cells % 0.0 Immature Granulocytes # 0.040 H Neutrophils # 5.0 Lymphocytes # 0.7 L Monocytes # 0.6 Eosinophils # 0.2 Basophils # 0.1 Nucleated Red Blood Cells # 0.0 Sodium Level 138 Potassium Level 4.2 Chloride Level 105 Carbon Dioxide Level 27 Anion Gap 6 Blood Urea Nitrogen 23 H Creatinine 1.09 H Est Glomerular Filtrat Rate mL/min Glucose Level 86 Calcium Level 8.8 Lab Scanned Report BLOOD TRANSFUSION Medications Medication Current Medications IV Flush (NS 3 ml) 3 ml PER PROTOCOL IV ; Start 05/28/18 at 19:00 Ondansetron HCl (Zofran Inj) 4 mg Q6H PRN IV NAUSEA/VOMITING; Start 05/28/18 at 19:00 Acetaminophen (Tylenol Tab) 650 mg Q6H PRN PO .PAIN 1-3 OR TEMP Last administered on 06/17/18at 18:59; Admin Dose 650 MG; Start 05/28/18 at 19:00 Acetaminophen/ Hydrocodone Bitart ([place] (5/325)) 1 tab Q6H PRN PO .MOD PAIN 4- 6; Start 05/28/18 at 19:00 Docusate Sodium (Colace) 100 mg Q12H PRN PO .CONSTIPATION Last administered on 06/07/18at 06:57; Admin Dose 100 MG; Start 05/28/18 at 19:00 Magnesium Hydroxide (Milk Of Mag) 30 ml DAILY PRN PO .CONSTIPATION Last administered on 06/06/18at 06:47; Admin Dose 30 ML; Start 05/28/18 at 19:00 Albuterol/ Ipratropium (Duoneb) 3 ml Q4H RESP THERAPY PRN HHN SHORTNESS OF BREATH; Start 05/28/18 at 19:00 Hydralazine HCl (Apresoline) 10 mg Q6H PRN IV ELEVATED BLOOD PRESSURE; Start 05/28/18 at 19:00 Nitroglycerin (Nitroglycerin (Sl Tab) 0.4 Mg) 1 tab Q5M PRN SL ANGINA; Start 05/28/18 at 19:00 Atorvastatin Calcium (Lipitor) 10 mg QHS PO Last administered on 06/17/18 21:05; Admin Dose 10 MG; Start 05/28/18 at 21:00 Levothyroxine Sodium (Synthroid) 100 mcg BEFORE BREAKFAST PO Last administered on 06/18/18 06:20; Admin Dose 100 MCG; Start 05/29/18 at 07:00 Calcium Carbonate (Oyster Shell Calcium) 1.25 gm BID PO Last administered on 06/18/18 08:50; Admin Dose 1.25 GM; Start 05/28/18 at 21:00 Cyanocobalamin (Vitamin B12) 1,000 mcg DAILY PO Last administered on 06/09/18 10:20; Admin Dose 1,000 MCG; Start 05/29/18 at 09:00; Status Hold Multivitamins/ Minerals (Theragran-M) 1 tab DAILY PO Last administered on 06/18/18 08:50; Admin Dose 1 TAB; Start 05/29/18 at 09:00 Pantoprazole (Protonix Tab) 40 mg BID@,18 PO Last administered on 06/18/18 06:20; Admin Dose 40 MG; Start 06/02/18 at 18:00 Carvedilol (Coreg) 6.25 mg BID PO Last administered on 06/18/18 08:52; Admin Dose 6.25 MG; Start 06/09/18 at 21:00 Sacubitril/ Valsartan (Entresto 24 Mg-26 Mg) 1 tab BID PO Last administered on 06/18/18 08:50; Admin Dose 1 TAB; Start 06/12/18 at 21:00 Levofloxacin (Levaquin) 500 mg DAILY@06 PO Last administered on 06/18/18 06:19; Admin Dose 500 MG; Start 06/14/18 at 23:30; Stop 06/18/18 at 23:55 CHARITY OG M.D. Jun 18, 2018 11:03
[2018-06-18 11:47] VITALS: BP 96/51; PULSE 60; RESP 18
[2018-06-18 14:12] VITALS: BP 84/46; PULSE 60; RESP 18
[2018-06-18] MEDS: ACETAMINOPHEN 325 MG TAB PO PRN (14:52)
--- NOTE | 2018-06-18 17:02 | PN ---
Date/Time of Note Date/Time of Note DATE: 06/18/18 TIME: 17:01 Assessment/Plan VTE Prophylaxis Risk score (from Ns)>0 risk: 8 SCD applied (from Ns): Yes Pharmacological prophylaxis: NA/contraindicated Pharm contraindication: bleeding Lines/Catheters IV [facility]from [facility] PICC Line Central line still needed: Yes Urinary Cath still in place: No Assessment/Plan Assessment/Plan ASSESSMENT AND PLAN: 82-year-old female coming in with history of paroxysmal atrial fibrillation on Eliquis, transcatheter aortic valve replacement, conges tive heart failure, recent lower gastrointestinal bleeding 2 weeks ago, hospitalized for that, status post colonoscopy with internal hemorrhoids and diverticulosis, presents with continued lower gastrointestinal bleeding and anemia, hemoglobin 5.9. 1. Anemia, lower gastrointestinal bleeding-likely secondary to diverticular source. On presentation the hemoglobin 5.9. Has had 4 separate occurrences where she needed PRBC transfusions this admission, and again we will get another transfusion now. - Continue to hold all anticoagulants including Eliquis (held since admission 05/28) -Despite positive tagged RBC scan results, colonoscopy, as well as IR embolization procedure again did not show any active bleeding. CT enterography results reviewed as well. As of now unable to localize site of what is likely a bleed -and general surgery team evaluated the patient as well yesterday. -Follow-up GI, cardiology, renal, and surgery recommendations. -Again, consults now agreeing patient needs to be transferred to higher level of care for either double balloon enterography to be performed, capsule test, or other test to identify the source of bleed that we cannot perform here. Family is in agreement for this, family service caseworker actively working on this now. 2. Thrombocytopenia- Platelets initially were found to be in the 30-50 range earlier during her admission, had been trending up the last few days but today is down 99, likely having a slow downtrend again as a result from her still active bleeding occurring. -Monitor, follow-up further hematology oncology recommendations, -We will check another H&H tonight. 3. History of congestive heart failure. BNP 10,000 this admission. - Continue current cardiac medications cautiously -Had been holding Entresto but since the creatinine improved today will restart today. 4. High cholesterol. -Continue statin 5. History of transcatheter aortic valve replacement (TAVR). - Carefully continue current cardiac medications per cardiology recommendations 6. History of paroxysmal atrial fibrillation. Presently rate controlled - again, continue to monitor heart rate on telemetry. - Again, holding off on anticoagulation given her gastrointestinal bleeding presently right now. - Continue Coreg and follow further cardiology recommendations 7. SHANEKA -slowly improving with intermittent doses of IV fluids cautiously given given her CHF history -Monitor for now, follow-up renal recs. 8. Gastrointestinal prophylaxis. Again, continue on PPI IV b.i.d. 9. Deep venous thrombosis prophylaxis. SCDs - avoid anticoagulants given GI bleeding Dispo: Plan for transfer to higher level of care for double balloon enteroscopy. Family is in agreement. Result Diagram: 06/18/18 0452 06/18/18451 Subjective 24 Hr Interval Summary Free Text/Dictation Another bloody bowel movement this morning not corresponding to Hgb drop. Exam/Review of Systems Exam Vitals Vital Signs Date Temp Pulse Resp B/P (MAP) Pulse Ox O2 O2 Flow FiO2 Time Delivery Rate 06/18/18 98.4 60 18 84/46 (59) 88 14:12 06/16/18 Nasal 14:52 Cannula 06/14/18 2 13:12 Exam GENERAL: lying in bed, NAD HEENT: Pupils equal, round, reactive to light. Extraocular muscles intact. NECK: Supple. No thyromegaly. LUNGS: Clear to auscultation bilaterally. CARDIOVASCULAR: S1 and S2 heard. No rubs or gallops. ABDOMEN: Soft, nontender, nondistended. Normal bowel sounds. No rebound or guarding. MUSCULOSKELETAL: No lower extremity edema bilaterally, some mild upper extremity swelling bilaterally in the arms. PICC site in right upper extremity appears clean dry and intact otherwise Results Results 24hrs Laboratory Tests Test 06/18/18 04:52 06/18/18 08:06 White Blood Count 6.6 Red Blood Count 3.04 #L Hemoglobin 9.3 #L Hematocrit 28.8 #L Mean Corpuscular Volume 94.7 Mean Corpuscular Hemoglobin 30.6 Mean Corpuscular Hemoglobin Concent 32.3 Red Cell Distribution Width 17.2 H Platelet Count 97 L Mean Platelet Volume 9.5 Immature Granulocytes % 0.600 H Neutrophils % 75.1 Lymphocytes % 10.8 L Monocytes % 9.3 Eosinophils % 3.3 Basophils % 0.9 Nucleated Red Blood Cells % 0.0 Immature Granulocytes # 0.040 H Neutrophils # 5.0 Lymphocytes # 0.7 L Monocytes # 0.6 Eosinophils # 0.2 Basophils # 0.1 Nucleated Red Blood Cells # 0.0 Sodium Level 138 Potassium Level 4.2 Chloride Level 105 Carbon Dioxide Level 27 Anion Gap 6 Blood Urea Nitrogen 23 H Creatinine 1.09 H Est Glomerular Filtrat Rate mL/min Glucose Level 86 Calcium Level 8.8 Lab Scanned Report BLOOD TRANSFUSION Medications Medication Current Medications IV Flush (NS 3 ml) 3 ml PER PROTOCOL IV ; Start 05/28/18 at 19:00 Ondansetron HCl (Zofran Inj) 4 mg Q6H PRN IV NAUSEA/VOMITING; Start 05/28/18 at 19:00 Acetaminophen (Tylenol Tab) 650 mg Q6H PRN PO .PAIN 1-3 OR TEMP Last administered on 06/18/18 14:52; Admin Dose 650 MG; Start 05/28/18 at 19:00 Acetaminophen/ Hydrocodone Bitart ([place] (5/325)) 1 tab Q6H PRN PO .MOD PAIN 4- 6; Start 05/28/18 at 19:00 Docusate Sodium (Colace) 100 mg Q12H PRN PO .CONSTIPATION Last administered on 06/07/18 06:57; Admin Dose 100 MG; Start 05/28/18 at 19:00 Magnesium Hydroxide (Milk Of Mag) 30 ml DAILY PRN PO .CONSTIPATION Last administered on 06/06/18 06:47; Admin Dose 30 ML; Start 05/28/18 at 19:00 Albuterol/ Ipratropium (Duoneb) 3 ml Q4H RESP THERAPY PRN HHN SHORTNESS OF BREATH; Start 05/28/18 at 19:00 Hydralazine HCl (Apresoline) 10 mg Q6H PRN IV ELEVATED BLOOD PRESSURE; Start 05/28/18 at 19:00 Nitroglycerin (Nitroglycerin (Sl Tab) 0.4 Mg) 1 tab Q5M PRN SL ANGINA; Start 05/28/18 at 19:00 Atorvastatin Calcium (Lipitor) 10 mg QHS PO Last administered on 06/17/18 21:05; Admin Dose 10 MG; Start 05/28/18 at 21:00 Levothyroxine Sodium (Synthroid) 100 mcg BEFORE BREAKFAST PO Last administered on 06/18/18 06:20; Admin Dose 100 MCG; Start 05/29/18 at 07:00 Calcium Carbonate (Oyster Shell Calcium) 1.25 gm BID PO Last administered on 06/18/18 08:50; Admin Dose 1.25 GM; Start 05/28/18 at 21:00 Cyanocobalamin (Vitamin B12) 1,000 mcg DAILY PO Last administered on 06/09/18 10:20; Admin Dose 1,000 MCG; Start 05/29/18 at 09:00; Status Hold Multivitamins/ Minerals (Theragran-M) 1 tab DAILY PO Last administered on 06/18/18 08:50; Admin Dose 1 TAB; Start 05/29/18 at 09:00 Pantoprazole (Protonix Tab) 40 mg BID@18 PO Last administered on 06/18/18 06:20; Admin Dose 40 MG; Start 06/02/18 at 18:00 Carvedilol (Coreg) 6.25 mg BID PO Last administered on 06/18/18 08:52; Admin Do se 6.25 MG; Start 06/09/18 at 21:00 Sacubitril/ Valsartan (Entresto 24 Mg-26 Mg) 1 tab BID PO Last administered on 06/18/18 08:50; Admin Dose 1 TAB; Start 06/12/18 at 21:00 Levofloxacin (Levaquin) 500 mg DAILY@06 PO Last administered on 06/18/18 06:19; Admin Dose 500 MG; Start 06/14/18 at 23:30; Stop 06/18/18 at 23:55 SHIRA ANTOINE MD Jun 18, 2018 17:02
[2018-06-18 20:21] VITALS: BP 103/53; PULSE 69; RESP 20
[2018-06-18] MEDS: ATORVASTATIN 10 MG TAB PO SCH (21:32)
[2018-06-19] VITALS (8 sets, daily range): BP systolic 97–131; BP diastolic 52–63; PULSE 60–70; RESP 17–19
[2018-06-19] MEDS: PANTOPRAZOLE (EC) 40 MG TAB PO SCH ×2 (05:18→18:04)
[2018-06-19] MEDS: LEVOTHYROXINE 100 MCG TAB PO SCH (05:18)
[2018-06-19] MEDS: ACETAMINOPHEN 325 MG TAB PO PRN (06:40)
--- NOTE | 2018-06-19 08:26 | PN ---
DATE: 06/19/2018 SUBJECTIVE: The patient is stable, no events overnight. OBJECTIVE: VITAL SIGNS: Blood pressure 130/59, respiration 18, pulse 78, temperature 97.7. HEENT: Head is normocephalic. NECK: Supple. HEART: Regular rate. LUNGS: Show diminished breath sounds at the base. ABDOMEN: Soft, nontender to palpation without rebound or guarding. EXTREMITIES: Negative for clubbing, cyanosis, no edema. DERMATOLOGIC: No rashes. MUSCULOSKELETAL: No joint effusion. NEUROLOGIC: No change in exam. MEDICATIONS: Have been reviewed. LABORATORY DATA: Has been reviewed. ASSESSMENT AND PLAN: 1. Nonoliguric acute kidney injury on top of CKD. Etiology is secondary to hemodynamics. Renal fun ction has improved. Continue current treatment plan, supportive care, renally dose all meds. 2. Chronic kidney disease. The patient's renal function appears to have stabilized. Continue curre nt treatment plan, continue disease factor modifications. 3. Mild hyponatremia, resolved. 4. Anemia with active GI bleeding. Underlying source is unclear. Patient is pending transfer to a tertiary center for further evaluation. Continue to monitor hemoglobin and hematocrit levels, transf use as needed. 5. Mineral bone disorder, monitor calcium and phosphorus levels. 6. Atrial fibrillation. Continue medical management. 7. History of congestive heart failure. Continue treatment plan. 8. Hypothyroidism. Consent Synthroid. 9. History of dementia. 10. Dyslipidemia. Continue statin therapy. Dictated By: CATRACHO PALENCIA DO NR/NTS Conf#: [id number] DID#: [id number] CC: SHIRA ANTOINE MD; KATHY ESTEVEZ MD; JO SANCHEZ MD;*End*
[2018-06-19] MEDS: CALCIUM CARBONATE 1.25 GM TAB PO SCH ×2 (08:48→20:44)
[2018-06-19] MEDS: SACUBITRIL/VALSARTAN (24mg-26mg) TABLET PO SCH ×2 (08:48→20:45)
[2018-06-19] MEDS: MULTIVITAMINS/MINERALS TAB PO SCH (08:48)
[2018-06-19] MEDS: BALSAM PERU/CASTOR OIL 60 GM TUBE TOP SCH ×2 (09:00→20:45)
--- NOTE | 2018-06-19 10:45 | CONS ---
Consult Date/Type/Reason Admit Date/Time May 28, 2018 at 19:26 Initial Consult Date 05/29/18 Type of Consultation: cv Requesting Provider: SHIRA ANTOINE MD Date/Time of Note DATE: 06/19/18 TIME: 10:44 Subjective Interventional cardiology follow-up progress note Subjective: Discussed with staff and telemetry was reviewed. Patient is off tele now Discussed with the patient's family including daughters at bedside + again more rectal bleeding per family report She denies any chest pain or pressure to me has any palpitation to me. s/p colo on 06/10 Objective: General: Elderly female no acute distress HEENT: NC/AT. pupils are equal. round. NECK: . no stridor. CV: RRR. systolic murmur; no gallop or rubs. PULM: no wheezing or rhonchi. GI: SOFT, NT, ND, no rebound or guarding Extremity: trace B/L LE edema. no clubbing. neuro: awake and alert, Psych: calm and pleasant rectal: deferred Abdominal/pelvic CT done May 30, 2018 shows: No evidence of urolithiasis, obstructive uropathy or diverticulitis. Diverticulosis. Nonvisualization appendix. No bowel mass or obstruction is seen. Cholecystectomy with presumed physiologic intra and extrahepatic bile duct dilatation. Correlation with serum bilirubin levels could be performed if c linically indicated. Aortic valve replacement. Cardiomegaly. Small pericardial effusion. Vascular c alcifications. Senescent degenerative changes spine. Tiny right pleural effusion. Objective Vitals Vital Signs Date Temp Pulse Resp B/P (MAP) Pulse Ox O2 O2 Flow FiO2 Time Delivery Rate 06/19/18 98.6 60 18 131/63 97 Room Air 08:36 (85) Intake and Output 06/18/18 06/18/18 06/19/18 1515:00 23:00 07:00 IntakeIntake Total 640 ml 300 ml BalanceBalance 640 ml 300 ml Results/Medications Result Diagram: 06/19/18 0445 06/19/18 0445 Results 24 hrs Laboratory Tests Test 06/19/18 04:45 White Blood Count 6.6 Red Blood Count 2.67 L Hemoglobin 8.2 L Hematocrit 25.9 L Mean Corpuscular Volume 97.0 Mean Corpuscular Hemoglobin 30.7 Mean Corpuscular Hemoglobin Concent 31.7 L Red Cell Distribution Width 17.4 H Platelet Count 105 L Mean Platelet Volume 9.3 Immature Granulocytes % 0.600 H Neutrophils % 72.5 Lymphocytes % 11.2 L Monocytes % 10.7 Eosinophils % 3.9 Basophils % 1.1 Nucleated Red Blood Cells % 0.0 Immature Granulocytes # 0.040 H Neutrophils # 4.8 Lymphocytes # 0.7 L Monocytes # 0.7 Eosinophils # 0.3 Basophils # 0.1 Nucleated Red Blood Cells # 0.0 Sodium Level 141 Potassium Level 3.7 Chloride Level 116 H Carbon Dioxide Level 23 Anion Gap 2 L Blood Urea Nitrogen 21 H Creatinine 1.09 H Est Glomerular Filtrat Rate mL/min Glucose Level 81 Calcium Level 7.5 L Home Meds Reported Medications Cyanocobalamin (Vitamin B-12) (Vitamin B-12) 1,000 Mcg Tab.subl, 1000 MCG SL DAILY 05/28/18 Multivitamin/Iron/Folic Acid (Centrum Adults Tablet) 1 Each Tablet, 1 EACH PO DAILY, TAB 05/28/18 Calcium Carbonate* (Calcium Carbonate*) 600 MG Ca Tab, 600 MG PO BID, TAB 05/28/18 Omeprazole* (Omeprazole*) 40 Mg Capsule.dr, 40 MG PO DAILY, #30 CAP 05/28/18 Atorvastatin Calcium (Atorvastatin Calcium) 10 Mg Tablet, 10 MG PO QHS, #30 TAB 05/28/18 Apixaban* (Eliquis*) 2.5 Mg Tablet, 2.5 MG PO DAILY, TAB 05/28/18 Sacubitril/Valsartan (Entresto 49 mg-51 mg Tablet) 1 Each Tablet, 1 EACH PO DAILY, TAB 05/28/18 Carvedilol* (Carvedilol*) 6.25 Mg Tablet, 6.25 MG PO DAILY, #60 TAB 05/28/18 Furosemide* (Furosemide*) 40 Mg Tablet, 40 MG PO DAILY, TAB 05/28/18 Spironolactone* (Aldactone*) 25 Mg Tablet, 25 MG PO DAILY, #30 TAB 05/28/18 Levothyroxine Sodium* (Levothyroxine Sodium*) 100 Mcg Tablet, 100 MCG PO BEFORE BREAKFAST, #30 TAB 05/28/18 Medications Current Medications IV Flush (NS 3 ml) 3 ml PER PROTOCOL IV ; Start 05/28/18 at 19:00 Ondansetron HCl (Zofran Inj) 4 mg Q6H PRN IV NAUSEA/VOMITING; Start 05/28/18 at 19:00 Acetaminophen (Tylenol Tab) 650 mg Q6H PRN PO .PAIN 1-3 OR TEMP Last administered on 06/19/18 06:40; Admin Dose 650 MG; Start 05/28/18 at 19:00 Acetaminophen/ Hydrocodone Bitart ([place] (5/325)) 1 tab Q6H PRN PO .MOD PAIN 4- 6; Start 05/28/18 at 19:00 Docusate Sodium (Colace) 100 mg Q12H PRN PO .CONSTIPATION Last administered on 06/07/18 06:57; Admin Dose 100 MG; Start 05/28/18 at 19:00 Magnesium Hydroxide (Milk Of Mag) 30 ml DAILY PRN PO .CONSTIPATION Last administered on 06/06/18 06:47; Admin Dose 30 ML; Start 05/28/18 at 19:00 Albuterol/ Ipratropium (Duoneb) 3 ml Q4H RESP THERAPY PRN HHN SHORTNESS OF BREATH; Start 05/28/18 at 19:00 Hydralazine HCl (Apresoline) 10 mg Q6H PRN IV ELEVATED BLOOD PRESSURE; Start 05/28/18 at 19:00 Nitroglycerin (Nitroglycerin (Sl Tab) 0.4 Mg) 1 tab Q5M PRN SL ANGINA; Start 05/28/18 at 19:00 Atorvastatin Calcium (Lipitor) 10 mg QHS PO Last administered on 06/18/18 21:32; Admin Dose 10 MG; Start 05/28/18 at 21:00 Levothyroxine Sodium (Synthroid) 100 mcg BEFORE BREAKFAST PO Last administered on 06/19/18 05:18; Admin Dose 100 MCG; Start 05/29/18 at 07:00 Calcium Carbonate (Oyster Shell Calcium) 1.25 gm BID PO Last administered on 06/19/18 08:48; Admin Dose 1.25 GM; Start 05/28/18 at 21:00 Cyanocobalamin (Vitamin B12) 1,000 mcg DAILY PO Last administered on 06/09/18 10:20; Admin Dose 1,000 MCG; Start 05/29/18 at 09:00; Status Hold Multivitamins/ Minerals (Theragran-M) 1 tab DAILY PO Last administered on 06/19/18 08:48; Admin Dose 1 TAB; Start 05/29/18 at 09:00 Pantoprazole (Protonix Tab) 40 mg BID@06,18 PO Last administered on 06/19/18 05:18; Admin Dose 40 MG; Start 06/02/18 at 18:00 Carvedilol (Coreg) 6.25 mg BID PO Last administered on 06/18/18 08:52; Admin Dose 6.25 MG; Start 06/09/18 at 21:00 Sacubitril/ Valsartan (Entresto 24 Mg-26 Mg) 1 tab BID PO Last administered on 06/19/18 08:48; Admin Dose 1 TAB; Start 06/12/18 at 21:00 Assessment/Plan Hospital Course (Demo Recall) 1. Recurrent lower GI bleed on anticoagulation: Currently off Eliquis 2. 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 Severe cardiomyopathy 4. Sick sinus syndrome with permanent pacemaker 5. History of aortic stenosis status post transcutaneous aortic valve replacement 6 permissive hypertension 7. Chronic kidney disease 8. Anemia secondary to GI bleeding 9. anemia: s/p transfusions 10. Pericardial effusion seen on CT scan Recommendations: Will cont coreg and entresto and inc as tolerated . Transfusion as needed. Patient with recurrent bleeding and anemia follow-up with GI recommendations regarding bleeding and anemia avoid fluid overload awaiting transfer to [facility] for higher level of care for GI workup Thank you for his referral. We will follow-up with you as needed over the weekend KAYLAH BAXTER MD [facility] KAYLAH BAXTER MD Jun 19, 2018 10:45
--- NOTE | 2018-06-19 12:57 | CONS ---
Assessment/Plan Assessment/Plan Hospital Course (Demo Recall) # Thrombocytopenia- Platelet stable around 100 -she had normal plt count of 201K as an outpt so the thrombocytopenia is a new development thrombocytopenia is likely secondary to consumption from the brisk GI Bleed. no DIC or TTP -I do not feel that DDAVP will add much to her situation as stated before # Diverticular GI bleed s/p recent scopes with EGD 05/29/2018 distal esophagitis/gastritis no active bleeding Colonoscopy 05/11/2018 sun-diverticulosis with evidence of recent bleeding Nuclear medicine bleeding scan positive -pt to transfer to higher level of care given we are not able to control this lower GI bleed. PT will likely need surgery # Anemia- -Hg did drop to 8.2 transfuse to keep hgb > 7 Plan to transfer patient [facility] for higher level of care. Consultation Date/Type/Reason Admit Date/Time May 28, 2018 at 19:26 Initial Consult Date 06/04/18 Type of Consult Hematology Reason for Consultation anemia/ GI bleed Requesting Provider: SHIRA ANTOINE MD Date/Time of Note DATE: 06/19/18 TIME: 12:50 24 HR Interval Summary Free Text/Dictation still with GIB. to move to telemetry. HG did drop 1 gram from yesterday Exam/Review of Systems Exam Vitals Vital Signs Date Temp Pulse Resp B/P (MAP) Pulse Ox O2 O2 Flow FiO2 Time Delivery Rate 06/19/18 98.6 60 18 131/63 97 Room Air 08:36 (85) Intake and Output 06/18/18 06/18/18 06/19/18 1515:00 23:00 07:00 IntakeIntake Total 640 ml 300 ml BalanceBalance 640 ml 300 ml Constitutional: alert, oriented Psych: anxiety, depression Eyes: nl conjunctiva Neck: supple Respiratory: clear to auscultation Cardiovascular: regular rate and rhythm Gastrointestinal: soft Musculoskeletal: nl extremities to inspection Results Result Diagram: 06/19/1844406/19/18444 Results 24hrs Laboratory Tests Test 06/19/18 04:45 White Blood Count 6.6 Red Blood Count 2.67 L Hemoglobin 8.2 L Hematocrit 25.9 L Mean Corpuscular Volume 97.0 Mean Corpuscular Hemoglobin 30.7 Mean Corpuscular Hemoglobin Concent 31.7 L Red Cell Distribution Width 17.4 H Platelet Count 105 L Mean Platelet Volume 9.3 Immature Granulocytes % 0.600 H Neutrophils % 72.5 Lymphocytes % 11.2 L Monocytes % 10.7 Eosinophils % 3.9 Basophils % 1.1 Nucleated Red Blood Cells % 0.0 Immature Granulocytes # 0.040 H Neutrophils # 4.8 Lymphocytes # 0.7 L Monocytes # 0.7 Eosinophils # 0.3 Basophils # 0.1 Nucleated Red Blood Cells # 0.0 Sodium Level 141 Potassium Level 3.7 Chloride Level 116 H Carbon Dioxide Level 23 Anion Gap 2 L Blood Urea Nitrogen 21 H Creatinine 1.09 H Est Glomerular Filtrat Rate mL/min Glucose Level 81 Calcium Level 7.5 L Medications Medication Current Medications IV Flush (NS 3 ml) 3 ml PER PROTOCOL IV ; Start 05/28/18 at 19:00 Ondansetron HCl (Zofran Inj) 4 mg Q6H PRN IV NAUSEA/VOMITING; Start 05/28/18 at 19:00 Acetaminophen (Tylenol Tab) 650 mg Q6H PRN PO .PAIN 1-3 OR TEMP Last administered on 06/19/18at 06:40; Admin Dose 650 MG; Start 05/28/18 at 19:00 Acetaminophen/ Hydrocodone Bitart ([place] (5/325)) 1 tab Q6H PRN PO .MOD PAIN 4- 6; Start 05/28/18 at 19:00 Docusate Sodium (Colace) 100 mg Q12H PRN PO .CONSTIPATION Last administered on 06/07/18at 06:57; Admin Dose 100 MG; Start 05/28/18 at 19:00 Magnesium Hydroxide (Milk Of Mag) 30 ml DAILY PRN PO .CONSTIPATION Last administered on 06/06/18at 06:47; Admin Dose 30 ML; Start 05/28/18 at 19:00 Albuterol/ Ipratropium (Duoneb) 3 ml Q4H RESP THERAPY PRN HHN SHORTNESS OF BREATH; Start 05/28/18 at 19:00 Hydralazine HCl (Apresoline) 10 mg Q6H PRN IV ELEVATED BLOOD PRESSURE; Start 05/28/18 at 19:00 Nitroglycerin (Nitroglycerin (Sl Tab) 0.4 Mg) 1 tab Q5M PRN SL ANGINA; Start 05/28/18 at 19:00 Atorvastatin Calcium (Lipitor) 10 mg QHS PO Last administered on 06/18/18 21:32; Admin Dose 10 MG; Start 05/28/18 at 21:00 Levothyroxine Sodium (Synthroid) 100 mcg BEFORE BREAKFAST PO Last administered on 06/19/18 05:18; Admin Dose 100 MCG; Start 05/29/18 at 07:00 Calcium Carbonate (Oyster Shell Calcium) 1.25 gm BID PO Last administered on 06/19/18 08:48; Admin Dose 1.25 GM; Start 05/28/18 at 21:00 Cyanocobalamin (Vitamin B12) 1,000 mcg DAILY PO Last administered on 06/09/18 10:20; Admin Dose 1,000 MCG; Start 05/29/18 at 09:00; Status Hold Multivitamins/ Minerals (Theragran-M) 1 tab DAILY PO Last administered on 06/19/18 08:48; Admin Dose 1 TAB; Start 05/29/18 at 09:00 Pantoprazole (Protonix Tab) 40 mg BID@,18 PO Last administered on 06/19/18 05:18; Admin Dose 40 MG; Start 06/02/18 at 18:00 Carvedilol (Coreg) 6.25 mg BID PO Last administered on 06/18/18 08:52; Admin Dose 6.25 MG; Start 06/09/18 at 21:00 Sacubitril/ Valsartan (Entresto 24 Mg-26 Mg) 1 tab BID PO Last administered on 06/19/18 08:48; Admin Dose 1 TAB; Start 06/12/18 at 21:00 CHARITY OG M.D. Jun 19, 2018 12:57
--- NOTE | 2018-06-19 14:54 | PN ---
Date/Time of Note Date/Time of Note DATE: 06/19/18 TIME: 14:53 Assessment/Plan VTE Prophylaxis Risk score (from Ns)>0 risk: 6 SCD applied (from Ns): Yes Pharmacological prophylaxis: NA/contraindicated Pharm contraindication: bleeding Lines/Catheters [facility] Central line still needed: Yes Urinary Cath still in place: No Assessment/Plan Assessment/Plan ASSESSMENT AND PLAN: 82-year-old female coming in with history of paroxysmal atrial fibrillation on Eliquis, transcatheter aortic valve replacement, conges tive heart failure, recent lower gastrointestinal bleeding 2 weeks ago, hospitalized for that, status post colonoscopy with internal hemorrhoids and diverticulosis, presents with continued lower gastrointestinal bleeding and anemia, hemoglobin 5.9. 1. Anemia, lower gastrointestinal bleeding-likely secondary to diverticular source. On presentation the hemoglobin 5.9. Has had 4 separate occurrences where she needed PRBC transfusions this admission, and again we will get another transfusion now. - Continue to hold all anticoagulants including Eliquis (held since admission 05/28) -Despite positive tagged RBC scan results, colonoscopy, as well as IR embolization procedure again did not show any active bleeding. CT enterography results reviewed as well. As of now unable to localize site of what is likely a bleed -and general surgery team evaluated the patient as well yesterday. -Follow-up GI, cardiology, renal, and surgery recommendations. -Again, consults now agreeing patient needs to be transferred to higher level of care for either double balloon enterography to be performed, capsule test, or other test to identify the source of bleed that we cannot perform here. 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 2. Thrombocytopenia- Platelets initially were found to be in the 30-50 range earlier during her admission, had been trending up the last few days but today is down 99, likely having a slow downtrend again as a result from her still active bleeding occurring. -Monitor, follow-up further hematology oncology recommendations, -We will check another H&H tonight. 3. History of congestive heart failure. BNP 10,000 this admission. - Continue current cardiac medications cautiously -Had been holding Entresto but since the creatinine improved today will restart today. 4. High cholesterol. -Continue statin 5. History of transcatheter aortic valve replacement (TAVR). - Carefully continue current cardiac medications per cardiology recommendations 6. History of paroxysmal atrial fibrillation. Presently rate controlled - again, continue to monitor heart rate on telemetry. - Again, holding off on anticoagulation given her gastrointestinal bleeding presently right now. - Continue Coreg and follow further cardiology recommendations 7. SHANEKA -slowly improving with intermittent doses of IV fluids cautiously given given her CHF history -Monitor for now, follow-up renal recs. 8. Gastrointestinal prophylaxis. Again, continue on PPI IV b.i.d. 9. Deep venous thrombosis prophylaxis. SCDs - avoid anticoagulants given GI bleeding Dispo: Plan for transfer to higher level of care for double balloon enteroscopy; hospitalist Dr. Pitts, gastroenterology Dr. Tafoya. Family is in agreement. Result Diagram: 06/19/1844406/19/18444 Subjective 24 Hr Interval Summary Free Text/Dictation No acute overnight events. Apparently patient has been accepted at [facility]; pending a bed. Exam/Review of Systems Exam Vitals Vital Signs Date Temp Pulse Resp B/P (MAP) Pulse Ox O2 O2 Flow FiO2 Time Delivery Rate 06/19/18 97.7 61 18 97/54 (68) 98 Room Air 13:30 Intake and Output 06/18/18 06/18/18 06/19/18 1515:00 23:00 07:00 IntakeIntake Total 640 ml 300 ml BalanceBalance 640 ml 300 ml Exam GENERAL: lying in bed, NAD HEENT: Pupils equal, round, reactive to light. Extraocular muscles intact. NECK: Supple. No thyromegaly. LUNGS: Clear to auscultation bilaterally. CARDIOVASCULAR: S1 and S2 heard. No rubs or gallops. ABDOMEN: Soft, nontender, nondistended. Normal bowel sounds. No rebound or guarding. MUSCULOSKELETAL: No lower extremity edema bilaterally, some mild upper extremity swelling bilaterally in the arms. PICC site in right upper extremity appears clean dry and intact otherwise Results Results 24hrs Laboratory Tests Test 06/19/18 04:45 White Blood Count 6.6 Red Blood Count 2.67 L Hemoglobin 8.2 L Hematocrit 25.9 L Mean Corpuscular Volume 97.0 Mean Corpuscular Hemoglobin 30.7 Mean Corpuscular Hemoglobin Concent 31.7 L Red Cell Distribution Width 17.4 H Platelet Count 105 L Mean Platelet Volume 9.3 Immature Granulocytes % 0.600 H Neutrophils % 72.5 Lymphocytes % 11.2 L Monocytes % 10.7 Eosinophils % 3.9 Basophils % 1.1 Nucleated Red Blood Cells % 0.0 Immature Granulocytes # 0.040 H Neutrophils # 4.8 Lymphocytes # 0.7 L Monocytes # 0.7 Eosinophils # 0.3 Basophils # 0.1 Nucleated Red Blood Cells # 0.0 Sodium Level 141 Potassium Level 3.7 Chloride Level 116 H Carbon Dioxide Level 23 Anion Gap 2 L Blood Urea Nitrogen 21 H Creatinine 1.09 H Est Glomerular Filtrat Rate mL/min Glucose Level 81 Calcium Level 7.5 L Medications Medication Current Medications IV Flush (NS 3 ml) 3 ml PER PROTOCOL IV ; Start 05/28/18 at 19:00 Ondansetron HCl (Zofran Inj) 4 mg Q6H PRN IV NAUSEA/VOMITING; Start 05/28/18 at 19:00 Acetaminophen (Tylenol Tab) 650 mg Q6H PRN PO .PAIN 1-3 OR TEMP Last administered on 06/19/18 06:40; Admin Dose 650 MG; Start 05/28/18 at 19:00 Acetaminophen/ Hydrocodone Bitart ([place] (5/325)) 1 tab Q6H PRN PO .MOD PAIN 4- 6; Start 05/28/18 at 19:00 Docusate Sodium (Colace) 100 mg Q12H PRN PO .CONSTIPATION Last administered on 06/07/18at 06:57; Admin Dose 100 MG; Start 05/28/18 at 19:00 Magnesium Hydroxide (Milk Of Mag) 30 ml DAILY PRN PO .CONSTIPATION Last administered on 06/06/18 06:47; Admin Dose 30 ML; Start 05/28/18 at 19:00 Albuterol/ Ipratropium (Duoneb) 3 ml Q4H RESP THERAPY PRN HHN SHORTNESS OF BREATH; Start 05/28/18 at 19:00 Hydralazine HCl (Apresoline) 10 mg Q6H PRN IV ELEVATED BLOOD PRESSURE; Start 05/28/18 at 19:00 Nitroglycerin (Nitroglycerin (Sl Tab) 0.4 Mg) 1 tab Q5M PRN SL ANGINA; Start 05/28/18 at 19:00 Atorvastatin Calcium (Lipitor) 10 mg QHS PO Last administered on 06/18/18at 21:32; Admin Dose 10 MG; Start 05/28/18 at 21:00 Levothyroxine Sodium (Synthroid) 100 mcg BEFORE BREAKFAST PO Last administered on 06/19/18 05:18; Admin Dose 100 MCG; Start 05/29/18 at 07:00 Calcium Carbonate (Oyster Shell Calcium) 1.25 gm BID PO Last administered on 06/19/18 08:48; Admin Dose 1.25 GM; Start 05/28/18 at 21:00 Cyanocobalamin (Vitamin B12) 1,000 mcg DAILY PO Last administered on 06/09/18 10:20; Admin Dose 1,000 MCG; Start 05/29/18 at 09:00; Status Hold Multivitamins/ Minerals (Theragran-M) 1 tab DAILY PO Last administered on 06/19/18 08:48; Admin Dose 1 TAB; Start 05/29/18 at 09:00 Pantoprazole (Protonix Tab) 40 mg BID@,18 PO Last administered on 06/19/18 05:18; Admin Dose 40 MG; Start 06/02/18 at 18:00 Carvedilol (Coreg) 6.25 mg BID PO Last administered on 06/18/18 08:52; Admin Dose 6.25 MG; Start 06/09/18 at 21:00 Sacubitril/ Valsartan (Entresto 24 Mg-26 Mg) 1 tab BID PO Last administered on 06/19/18 08:48; Admin Dose 1 TAB; Start 06/12/18 at 21:00 SHIRA ANTOINE MD Jun 19, 2018 14:54
--- NOTE | 2018-06-19 15:13 | PN ---
Date/Time of Note Date/Time of Note DATE: 06/19/18 TIME: 15:10 Assessment/Plan VTE Prophylaxis Risk score (from Ns)>0 risk: 6 SCD applied (from Ns): Yes Pharmacological prophylaxis: NA/contraindicated Pharm contraindication: bleeding Lines/Catheters IV Catheter Type (from [facility]): PICC Line Central line still needed: Yes Urinary Cath still in place: No Assessment/Plan Assessment/Plan Assessment: GI bleeding/hematochezia/melena. Likely right colon diverticular source EGD 05/29/2018 distal esophagitis/gastritis no active bleeding Colonoscopy 05/11/2018 sun-diverticulosis with evidence of recent bleeding Colonoscopy 06/10/18- Sun-diverticulosis, no active bleeding IR embolization -no bleeding found Anemia Anticoagulation- on hold Dementia A-fib CKD CHF Thrombocytopenia Plan: Transfer to tertiary center consider double balloon enteroscopy versus capsule endoscopy to assess for small bowel [facility] "Bleeding Service" Dr Tafoya [phone] Continue to monitor, no more procedures at this time Monitor H&H - transfuse as needed Continue supportive measures. Patient seen in collaboration with Dr. Hendrickson/Barber Subjective: Course reviewed with nursing staff Patient interviewed and examined All labs, imaging and other results reviewed Awaiting for transfer to [facility] for further work-up of GI bleeding. No blood transfusion today Hg is trending down 8.2. Complaining of rectal bleeding with each bowel movement. Patient has been requiring blood transfusion s every 3 days. PHYSICAL EXAMINATION: GENERAL: Alert & oriented x 3, in no acute distress SKIN: No lesions CHEST: Inspection within normal limits. CARDIOVASCULAR: Heart: Regular rate and rhythm RESPIRATORY: Lungs clear to auscultation GASTROINTESTINAL AND LIVER: Abdomen: Soft, non tenderness, non-distended, no hernias, no masses, no organomegaly, no ascites, no guarding, no rebound tenderness, normoactive bowel sounds. Rectal: Deferred. GENITOURINARY: Female genitalia within normal limits. EXTREMITIES: No cyanosis, clubbing or edema. Result Diagram: 06/19/18 0445 06/19/18 0445 Results 24hrs Laboratory Tests Test 06/19/18 04:45 White Blood Count 6.6 Red Blood Count 2.67 L Hemoglobin 8.2 L Hematocrit 25.9 L Mean Corpuscular Volume 97.0 Mean Corpuscular Hemoglobin 30.7 Mean Corpuscular Hemoglobin Concent 31.7 L Red Cell Distribution Width 17.4 H Platelet Count 105 L Mean Platelet Volume 9.3 Immature Granulocytes % 0.600 H Neutrophils % 72.5 Lymphocytes % 11.2 L Monocytes % 10.7 Eosinophils % 3.9 Basophils % 1.1 Nucleated Red Blood Cells % 0.0 Immature Granulocytes # 0.040 H Neutrophils # 4.8 Lymphocytes # 0.7 L Monocytes # 0.7 Eosinophils # 0.3 Basophils # 0.1 Nucleated Red Blood Cells # 0.0 Sodium Level 141 Potassium Level 3.7 Chloride Level 116 H Carbon Dioxide Level 23 Anion Gap 2 L Blood Urea Nitrogen 21 H Creatinine 1.09 H Est Glomerular Filtrat Rate mL/min Glucose Level 81 Calcium Level 7.5 L CC: ELVIRA HENDRICKSON MD ; Exam/Review of Systems Exam Vitals Vital Signs Date Temp Pulse Resp B/P (MAP) Pulse Ox O2 O2 Flow FiO2 Time Delivery Rate 06/19/18 97.7 61 18 97/54 (68) 98 Room Air 13:30 Intake and Output 06/18/18 06/18/18 06/19/18 1515:00 23:00 07:00 IntakeIntake Total 640 ml 300 ml BalanceBalance 640 ml 300 ml Results Results 24hrs Laboratory Tests Test 06/19/18 04:45 White Blood Count 6.6 Red Blood Count 2.67 L Hemoglobin 8.2 L Hematocrit 25.9 L Mean Corpuscular Volume 97.0 Mean Corpuscular Hemoglobin 30.7 Mean Corpuscular Hemoglobin Concent 31.7 L Red Cell Distribution Width 17.4 H Platelet Count 105 L Mean Platelet Volume 9.3 Immature Granulocytes % 0.600 H Neutrophils % 72.5 Lymphocytes % 11.2 L Monocytes % 10.7 Eosinophils % 3.9 Basophils % 1.1 Nucleated Red Blood Cells % 0.0 Immature Granulocytes # 0.040 H Neutrophils # 4.8 Lymphocytes # 0.7 L Monocytes # 0.7 Eosinophils # 0.3 Basophils # 0.1 Nucleated Red Blood Cells # 0.0 Sodium Level 141 Potassium Level 3.7 Chloride Level 116 H Carbon Dioxide Level 23 Anion Gap 2 L Blood Urea Nitrogen 21 H Creatinine 1.09 H Est Glomerular Filtrat Rate mL/min Glucose Level 81 Calcium Level 7.5 L Medications Medication Current Medications IV Flush (NS 3 ml) 3 ml PER PROTOCOL IV ; Start 05/28/18 at 19:00 Ondansetron HCl (Zofran Inj) 4 mg Q6H PRN IV NAUSEA/VOMITING; Start 05/28/18 at 19:00 Acetaminophen (Tylenol Tab) 650 mg Q6H PRN PO .PAIN 1-3 OR TEMP Last administered on 06/19/18 06:40; Admin Dose 650 MG; Start 05/28/18 at 19:00 Acetaminophen/ Hydrocodone Bitart ([place] (5/325)) 1 tab Q6H PRN PO .MOD PAIN 4- 6; Start 05/28/18 at 19:00 Docusate Sodium (Colace) 100 mg Q12H PRN PO .CONSTIPATION Last administered on 06/07/18 06:57; Admin Dose 100 MG; Start 05/28/18 at 19:00 Magnesium Hydroxide (Milk Of Mag) 30 ml DAILY PRN PO .CONSTIPATION Last administered on 06/06/18 06:47; Admin Dose 30 ML; Start 05/28/18 at 19:00 Albuterol/ Ipratropium (Duoneb) 3 ml Q4H RESP THERAPY PRN HHN SHORTNESS OF BREATH; Start 05/28/18 at 19:00 Hydralazine HCl (Apresoline) 10 mg Q6H PRN IV ELEVATED BLOOD PRESSURE; Start 05/28/18 at 19:00 Nitroglycerin (Nitroglycerin (Sl Tab) 0.4 Mg) 1 tab Q5M PRN SL ANGINA; Start 05/28/18 at 19:00 Atorvastatin Calcium (Lipitor) 10 mg QHS PO Last administered on 06/18/18 21:32; Admin Dose 10 MG; Start 05/28/18 at 21:00 Levothyroxine Sodium (Synthroid) 100 mcg BEFORE BREAKFAST PO Last administered on 06/19/18 05:18; Admin Dose 100 MCG; Start 05/29/18 at 07:00 Calcium Carbonate (Oyster Shell Calcium) 1.25 gm BID PO Last administered on 08:48; Admin Dose 1.25 GM; Start 05/28/18 at 21:00 Cyanocobalamin (Vitamin B12) 1,000 mcg DAILY PO Last administered on 06/09/18 10:20; Admin Dose 1,000 MCG; Start 05/29/18 at 09:00; Status Hold Multivitamins/ Minerals (Theragran-M) 1 tab DAILY PO Last administered on 06/19/18 08:48; Admin Dose 1 TAB; Start 05/29/18 at 09:00 Pantoprazole (Protonix Tab) 40 mg BID@06,18 PO Last administered on 06/19/18 05:18; Admin Dose 40 MG; Start 06/02/18 at 18:00 Carvedilol (Coreg) 6.25 mg BID PO Last administered on 06/18/18 08:52; Admin Dose 6.25 MG; Start 06/09/18 at 21:00 Sacubitril/ Valsartan (Entresto 24 Mg-26 Mg) 1 tab BID PO Last administered on 06/19/18 08:48; Admin Dose 1 TAB; Start 06/12/18 at 21:00 RICKEY HARTMANN NP Jun 19, 2018 15:13
[2018-06-19] MEDS: ATORVASTATIN 10 MG TAB PO SCH (20:44)
[2018-06-20] VITALS (10 sets, daily range): BP systolic 90–125; BP diastolic 53–63; PULSE 60–65; RESP 18–22
[2018-06-20] MEDS: PANTOPRAZOLE (EC) 40 MG TAB PO SCH (06:44)
[2018-06-20] MEDS: LEVOTHYROXINE 100 MCG TAB PO SCH (06:44)
[2018-06-20] MEDS: DOCUSATE SODIUM 100 MG CAP PO PRN (06:45)
[2018-06-20] MEDS: MULTIVITAMINS/MINERALS TAB PO SCH (08:35)
[2018-06-20] MEDS: CALCIUM CARBONATE 1.25 GM TAB PO SCH (08:36)
[2018-06-20] MEDS: SACUBITRIL/VALSARTAN (24mg-26mg) TABLET PO SCH (08:37)
[2018-06-20] MEDS: BALSAM PERU/CASTOR OIL 60 GM TUBE TOP SCH (09:00)
--- NOTE | 2018-06-20 11:45 | PN ---
Date/Time of Note Date/Time of Note DATE: 06/20/18 TIME: 11:43 Assessment/Plan VTE Prophylaxis Risk score (from Ns)>0 risk: 6 SCD applied (from Ns): Yes Pharmacological prophylaxis: NA/contraindicated Pharm contraindication: bleeding Lines/Catheters IV Catheter Type (from Nrsg): PICC Line Central line still needed: Yes Urinary Cath still in place: No Assessment/Plan Assessment/Plan Assessment: GI bleeding/hematochezia/melena. Likely right colon diverticular source EGD 05/29/2018 distal esophagitis/gastritis no active bleeding Colonoscopy 05/11/2018 sun-diverticulosis with evidence of recent bleeding Colonoscopy 06/10/18- Sun-diverticulosis, no active bleeding IR embolization -no bleeding found Anemia Anticoagulation- on hold Dementia A-fib CKD CHF Thrombocytopenia Plan: Transfer to tertiary center consider double balloon enteroscopy versus capsule endoscopy to assess for small bowel [facility] "Bleeding Service" Dr Tafoya [phone] Continue to monitor, no more procedures at this time Monitor H&H - transfuse as needed Continue supportive measures. Patient seen in collaboration with Dr. Hendrickson/Barber Subjective: Course reviewed with nursing staff Patient interviewed and examined All labs, imaging and other results reviewed Patient is doing fair. She reports one bowel movement this morning with blood. Hemoglobin dropped to 7.8. She denies abdominal pain. Tolerating diet well. Awaiting for transfer to [facility] for further work-up of GI bleeding. PHYSICAL EXAMINATION: GENERAL: Alert & oriented x 3, in no acute distress SKIN: No lesions CHEST: Inspection within normal limits. CARDIOVASCULAR: Heart: Regular rate and rhythm RESPIRATORY: Lungs clear to auscultation GASTROINTESTINAL AND LIVER: Abdomen: Soft, non tenderness, non-distended, no hernias, no masses, no organomegaly, no ascites, no guarding, no rebound tenderness, normoactive bowel sounds. Rectal: Deferred. GENITOURINARY: Female genitalia within normal limits. EXTREMITIES: No cyanosis, clubbing or edema. Result Diagram: 06/20/18 0539 06/20/18 0539 Results 24hrs Laboratory Tests Test 06/20/18 05:39 White Blood Count 6.3 Red Blood Count 2.60 L Hemoglobin 7.8 L Hematocrit 25.1 L Mean Corpuscular Volume 96.5 Mean Corpuscular Hemoglobin 30.0 Mean Corpuscular Hemoglobin Concent 31.1 L Red Cell Distribution Width 17.1 H Platelet Count 108 L Mean Platelet Volume 9.4 Immature Granulocytes % 0.600 H Neutrophils % 75.7 Lymphocytes % 10.4 L Monocytes % 9.0 Eosinophils % 3.2 Basophils % 1.1 Nucleated Red Blood Cells % 0.0 Immature Granulocytes # 0.040 H Neutrophils # 4.8 Lymphocytes # 0.7 L Monocytes # 0.6 Eosinophils # 0.2 Basophils # 0.1 Nucleated Red Blood Cells # 0.0 Sodium Level 138 Potassium Level 4.4 Chloride Level 109 Carbon Dioxide Level 28 Anion Gap 1 L Blood Urea Nitrogen 24 H Creatinine 1.05 H Est Glomerular Filtrat Rate mL/min Glucose Level 90 Calcium Level 8.8 CC: ELVIRA HENDRICKSON MD ; Exam/Review of Systems Exam Vitals Vital Signs Date Temp Pulse Resp B/P (MAP) Pulse Ox O2 O2 Flow FiO2 Time Delivery Rate 06/20/18 98.2 60 18 90/53 (65) 96 11:31 06/19/18 Room Air 13:30 Intake and Output 06/19/18 06/19/18 06/20/18 1515:00 23:00 07:00 IntakeIntake Total 200 ml 550 ml 150 ml BalanceBalance 200 ml 550 ml 150 ml Results Results 24hrs Laboratory Tests Test 06/20/18 05:39 White Blood Count 6.3 Red Blood Count 2.60 L Hemoglobin 7.8 L Hematocrit 25.1 L Mean Corpuscular Volume 96.5 Mean Corpuscular Hemoglobin 30.0 Mean Corpuscular Hemoglobin Concent 31.1 L Red Cell Distribution Width 17.1 H Platelet Count 108 L Mean Platelet Volume 9.4 Immature Granulocytes % 0.600 H Neutrophils % 75.7 Lymphocytes % 10.4 L Monocytes % 9.0 Eosinophils % 3.2 Basophils % 1.1 Nucleated Red Blood Cells % 0.0 Immature Granulocytes # 0.040 H Neutrophils # 4.8 Lymphocytes # 0.7 L Monocytes # 0.6 Eosinophils # 0.2 Basophils # 0.1 Nucleated Red Blood Cells # 0.0 Sodium Level 138 Potassium Level 4.4 Chloride Level 109 Carbon Dioxide Level 28 Anion Gap 1 L Blood Urea Nitrogen 24 H Creatinine 1.05 H Est Glomerular Filtrat Rate mL/min Glucose Level 90 Calcium Level 8.8 Medications Medication Current Medications IV Flush (NS 3 ml) 3 ml PER PROTOCOL IV ; Start 05/28/18 at 19:00 Ondansetron HCl (Zofran Inj) 4 mg Q6H PRN IV NAUSEA/VOMITING; Start 05/28/18 at 19:00 Acetaminophen (Tylenol Tab) 650 mg Q6H PRN PO .PAIN 1-3 OR TEMP Last a dministered on 06/19/18 06:40; Admin Dose 650 MG; Start 05/28/18 at 19:00 Acetaminophen/ Hydrocodone Bitart ([place] (5/325)) 1 tab Q6H PRN PO .MOD PAIN 4- 6; Start 05/28/18 at 19:00 Docusate Sodium (Colace) 100 mg Q12H PRN PO .CONSTIPATION Last administered on 06/20/18 06:45; Admin Dose 100 MG; Start 05/28/18 at 19:00 Magnesium Hydroxide (Milk Of Mag) 30 ml DAILY PRN PO .CONSTIPATION Last adminis tered on 06/06/18 06:47; Admin Dose 30 ML; Start 05/28/18 at 19:00 Albuterol/ Ipratropium (Duoneb) 3 ml Q4H RESP THERAPY PRN HHN SHORTNESS OF BREATH; Start 05/28/18 at 19:00 Hydralazine HCl (Apresoline) 10 mg Q6H PRN IV ELEVATED BLOOD PRESSURE; Start 05/28/18 at 19:00 Nitroglycerin (Nitroglycerin (Sl Tab) 0.4 Mg) 1 tab Q5M PRN SL ANGINA; Start 05/28/18 at 19:00 Atorvastatin Calcium (Lipitor) 10 mg QHS PO Last administered on 06/19/18 20:44; Admin Dose 10 MG; Start 05/28/18 at 21:00 Levothyroxine Sodium (Synthroid) 100 mcg BEFORE BREAKFAST PO Last administered on 06/20/18 06:44; Admin Dose 100 MCG; Start 05/29/18 at 07:00 Calcium Carbonate (Oyster Shell Calcium) 1.25 gm BID PO Last administered on 06/20/18 08:36; Admin Dose 1.25 GM; Start 05/28/18 at 21:00 Cyanocobalamin (Vitamin B12) 1,000 mcg DAILY PO Last administered on 06/09/18 10:20; Admin Dose 1,000 MCG; Start 05/29/18 at 09:00; Status Hold Multivitamins/ Minerals (Theragran-M) 1 tab DAILY PO Last administered on 08:35; Admin Dose 1 TAB; Start 05/29/18 at 09:00 Pantoprazole (Protonix Tab) 40 mg BID@,18 PO Last administered on 06/20/18 06:44; Admin Dose 40 MG; Start 06/02/18 at 18:00 Carvedilol (Coreg) 6.25 mg BID PO Last administered on 06/18/18 08:52; Admin Dose 6.25 MG; Start 06/09/18 at 21:00 Sacubitril/ Valsartan (Entresto 24 Mg-26 Mg) 1 tab BID PO Last administered on 06/20/18 08:37; Admin Dose 1 TAB; Start 06/12/18 at 21:00 RICKEY HARTMANN NP Jun 20, 2018 11:45
--- NOTE | 2018-06-20 12:03 | CONS ---
Assessment/Plan Assessment/Plan Assessment/Plan (Daily) 1. Nonoliguric acute kidney injury on top of CKD. Etiology is secondary to hemodynamics. Renal function has improved. Continue current treatment plan, supportive care, renally dose all meds. 2. Chronic kidney disease. The patient's renal function appears to have stabilized. Continue current treatment plan, continue disease factor modifications. 3. Mild hyponatremia, resolved. 4. Anemia with active GI bleeding. Underlying source is unclear. Patient is pending transfer to a tertiary center for further evaluation. Continue to monitor hemoglobin and hematocrit levels, transfuse as needed. 5. Mineral bone disorder, monitor calcium and phosphorus levels. 6. Atrial fibrillation. Continue medical management. 7. History of congestive heart failure. Continue treatment plan. 8. Hypothyroidism. Consent Synthroid. 9. History of dementia. 10. Dyslipidemia. Continue statin therapy. Consultation Date/Type/Reason Admit Date/Time May 28, 2018 at 19:26 Initial Consult Date 06/04/18 Requesting Provider: SHIRA ANTOINE MD Date/Time of Note DATE: 06/20/18 TIME: 12:02 24 HR Interval Summary Free Text/Dictation continues to have decrease in hg denies shortness of breath, n/v or urinary issues d/w rn gen nad cv rrr pulm ctab abd soft ,nd, nt +bs ext: no edema Exam/Review of Systems Exam Vitals Vital Signs Date Temp Pulse Resp B/P (MAP) Pulse Ox O2 O2 Flow FiO2 Time Delivery Rate 06/20/18 98.2 60 18 90/53 (65) 96 11:31 06/19/18 Room Air 13:30 Intake and Output 06/19/18 06/19/18 06/20/18 1515:00 23:00 07:00 IntakeIntake Total 200 ml 550 ml 150 ml BalanceBalance 200 ml 550 ml 150 ml Results Result Diagram: 06/20/18 0539 06/20/18 0539 Results 24hrs Laboratory Tests Test 06/20/18 05:39 White Blood Count 6.3 Red Blood Count 2.60 L Hemoglobin 7.8 L Hematocrit 25.1 L Mean Corpuscular Volume 96.5 Mean Corpuscular Hemoglobin 30.0 Mean Corpuscular Hemoglobin Concent 31.1 L Red Cell Distribution Width 17.1 H Platelet Count 108 L Mean Platelet Volume 9.4 Immature Granulocytes % 0.600 H Neutrophils % 75.7 Lymphocytes % 10.4 L Monocytes % 9.0 Eosinophils % 3.2 Basophils % 1.1 Nucleated Red Blood Cells % 0.0 Immature Granulocytes # 0.040 H Neutrophils # 4.8 Lymphocytes # 0.7 L Monocytes # 0.6 Eosinophils # 0.2 Basophils # 0.1 Nucleated Red Blood Cells # 0.0 Sodium Level 138 Potassium Level 4.4 Chloride Level 109 Carbon Dioxide Level 28 Anion Gap 1 L Blood Urea Nitrogen 24 H Creatinine 1.05 H Est Glomerular Filtrat Rate mL/min Glucose Level 90 Calcium Level 8.8 Medications Medication Current Medications IV Flush (NS 3 ml) 3 ml PER PROTOCOL IV ; Start 05/28/18 at 19:00 Ondansetron HCl (Zofran Inj) 4 mg Q6H PRN IV NAUSEA/VOMITING; Start 05/28/18 at 19:00 Acetaminophen (Tylenol Tab) 650 mg Q6H PRN PO .PAIN 1-3 OR TEMP Last administered on 06/19/18 06:40; Admin Dose 650 MG; Start 05/28/18 at 19:00 Acetaminophen/ Hydrocodone Bitart ([place] (5/325)) 1 tab Q6H PRN PO .MOD PAIN 4- 6; Start 05/28/18 at 19:00 Docusate Sodium (Colace) 100 mg Q12H PRN PO .CONSTIPATION Last administered on 06/20/18 06:45; Admin Dose 100 MG; Start 05/28/18 at 19:00 Magnesium Hydroxide (Milk Of Mag) 30 ml DAILY PRN PO .CONSTIPATION Last administered on 06/06/18 06:47; Admin Dose 30 ML; Start 05/28/18 at 19:00 Albuterol/ Ipratropium (Duoneb) 3 ml Q4H RESP THERAPY PRN HHN SHORTNESS OF BREATH; Start 05/28/18 at 19:00 Hydralazine HCl (Apresoline) 10 mg Q6H PRN IV ELEVATED BLOOD PRESSURE; Start 05/28/18 at 19:00 Nitroglycerin (Nitroglycerin (Sl Tab) 0.4 Mg) 1 tab Q5M PRN SL ANGINA; Start 05/28/18 at 19:00 Atorvastatin Calcium (Lipitor) 10 mg QHS PO Last administered on 06/19/18 20:44; Admin Dose 10 MG; Start 05/28/18 at 21:00 Levothyroxine Sodium (Synthroid) 100 mcg BEFORE BREAKFAST PO Last administered on 06/20/18 06:44; Admin Dose 100 MCG; Start 05/29/18 at 07:00 Calcium Carbonate (Oyster Shell Calcium) 1.25 gm BID PO Last administered on 06/20/18 08:36; Admin Dose 1.25 GM; Start 05/28/18 at 21:00 Cyanocobalamin (Vitamin B12) 1,000 mcg DAILY PO Last administered on 06/09/18 10:20; Admin Dose 1,000 MCG; Start 05/29/18 at 09:00; Status Hold Multivitamins/ Minerals (Theragran-M) 1 tab DAILY PO Last administered on 06/20/18 08:35; Admin Dose 1 TAB; Start 05/29/18 at 09:00 Pantoprazole (Protonix Tab) 40 mg BID@18 PO Last administered on 06/20/18 06:44; Admin Dose 40 MG; Start 06/02/18 at 18:00 Carvedilol (Coreg) 6.25 mg BID PO Last administered on 06/18/18 08:52; Admin Dose 6.25 MG; Start 06/09/18 at 21:00 Sacubitril/ Valsartan (Entresto 24 Mg-26 Mg) 1 tab BID PO Last administered on 06/20/18 08:37; Admin Dose 1 TAB; Start 06/12/18 at 21:00 JOON HERNANDEZ MD Jun 20, 2018 12:02
--- NOTE | 2018-06-20 16:28 | CONS ---
Assessment/Plan Assessment/Plan Assessment/Plan (Daily) # Thrombocytopenia- Platelet stable- 108 -she had normal plt count of 201K as an outpt so the thrombocytopenia is a new development thrombocytopenia is likely secondary to consumption from the brisk GI Bleed. no DIC or TTP -I do not feel that DDAVP will add much to her situation as stated before # Diverticular GI bleed s/p recent scopes with EGD 05/29/2018 distal esophagitis/gastritis no active bleeding Colonoscopy 05/11/2018 sun-diverticulosis with evidence of recent bleeding Nuclear medicine bleeding scan positive -pt to transfer to higher level of care given we are not able to control this lower GI bleed. PT will likely need surgery # Anemia- -Hg did drop to 7.8 transfuse to keep hgb > 7 Plan to transfer patient ti [facility] for higher level of care- [facility] today.dw staff. Patient is seenn in collaboration with Dr Riddle Consultation Date/Type/Reason Admit Date/Time May 28, 2018 at 19:26 Initial Consult Date 06/04/18 Type of Consult Oncology Requesting Provider: SHIRA NATOINE MD Date/Time of Note DATE: 06/20/18 TIME: 16:26 24 HR Interval Summary Free Text/Dictation Plan for transfer to [facility] today.dw staff Detailed Summary Respiratory: no complaints Cardiovascular: no complaints Gastrointestinal: no complaints Genitourinary: no complaints Skin: no complaints Exam/Review of Systems Exam Vitals Vital Signs Date Temp Pulse Resp B/P (MAP) Pulse Ox O2 O2 Flow FiO2 Time Delivery Rate 06/20/18 98.4 60 18 116/56 97 15:23 (76) 06/19/18 Room Air 13:30 Intake and Output 06/19/18 06/19/18 06/20/18 1515:00 23:00 07:00 IntakeIntake Total 200 ml 550 ml 150 ml BalanceBalance 200 ml 550 ml 150 ml Constitutional: well developed Psych: nl mood/affect Eyes: nl lids, nl sclera ENMT: nl external ears & nose Neck: non-tender Respiratory: diminished breath sounds Cardiovascular: nl pulses, other (s1s2) Gastrointestinal: soft, non-tender Musculoskeletal: muscle weakness Extremities: normal pulses Neurological: other Lymph: nontender Results Result Diagram: 06/20/18 0539 4/6/19 0539 Results 24hrs Laboratory Tests Test 06/20/18 05:39 White Blood Count 6.3 Red Blood Count 2.60 L Hemoglobin 7.8 L Hematocrit 25.1 L Mean Corpuscular Volume 96.5 Mean Corpuscular Hemoglobin 30.0 Mean Corpuscular Hemoglobin Concent 31.1 L Red Cell Distribution Width 17.1 H Platelet Count 108 L Mean Platelet Volume 9.4 Immature Granulocytes % 0.600 H Neutrophils % 75.7 Lymphocytes % 10.4 L Monocytes % 9.0 Eosinophils % 3.2 Basophils % 1.1 Nucleated Red Blood Cells % 0.0 Immature Granulocytes # 0.040 H Neutrophils # 4.8 Lymphocytes # 0.7 L Monocytes # 0.6 Eosinophils # 0.2 Basophils # 0.1 Nucleated Red Blood Cells # 0.0 Sodium Level 138 Potassium Level 4.4 Chloride Level 109 Carbon Dioxide Level 28 Anion Gap 1 L Blood Urea Nitrogen 24 H Creatinine 1.05 H Est Glomerular Filtrat Rate mL/min Glucose Level 90 Calcium Level 8.8 Medications Medication Current Medications IV Flush (NS 3 ml) 3 ml PER PROTOCOL IV ; Start 05/28/18 at 19:00 Ondansetron HCl (Zofran Inj) 4 mg Q6H PRN IV NAUSEA/VOMITING; Start 05/28/18 at 19:00 Acetaminophen (Tylenol Tab) 650 mg Q6H PRN PO .PAIN 1-3 OR TEMP Last administered on 06/19/18at 06:40; Admin Dose 650 MG; Start 05/28/18 at 19:00 Acetaminophen/ Hydrocodone Bitart ([place] (5/325)) 1 tab Q6H PRN PO .MOD PAIN 4- 6; Start 05/28/18 at 19:00 Docusate Sodium (Colace) 100 mg Q12H PRN PO .CONSTIPATION Last administered on 06/20/18at 06:45; Admin Dose 100 MG; Start 05/28/18 at 19:00 Magnesium Hydroxide (Milk Of Mag) 30 ml DAILY PRN PO .CONSTIPATION Last administered on 06/06/18at 06:47; Admin Dose 30 ML; Start 05/28/18 at 19:00 Albuterol/ Ipratropium (Duoneb) 3 ml Q4H RESP THERAPY PRN HHN SHORTNESS OF BREATH; Start 05/28/18 at 19:00 Hydralazine HCl (Apresoline) 10 mg Q6H PRN IV ELEVATED BLOOD PRESSURE; Start 05/28/18 at 19:00 Nitroglycerin (Nitroglycerin (Sl Tab) 0.4 Mg) 1 tab Q5M PRN SL ANGINA; Start 05/28/18 at 19:00 Atorvastatin Calcium (Lipitor) 10 mg QHS PO Last administered on 06/19/18 20:44; Admin Dose 10 MG; Start 05/28/18 at 21:00 Levothyroxine Sodium (Synthroid) 100 mcg BEFORE BREAKFAST PO Last administered on 06/20/18 06:44; Admin Dose 100 MCG; Start 05/29/18 at 07:00 Calcium Carbonate (Oyster Shell Calcium) 1.25 gm BID PO Last administered on 06/20/18 08:36; Admin Dose 1.25 GM; Start 05/28/18 at 21:00 Cyanocobalamin (Vitamin B12) 1,000 mcg DAILY PO Last administered on 06/09/18 10:20; Admin Dose 1,000 MCG; Start 05/29/18 at 09:00; Status Hold Multivitamins/ Minerals (Theragran-M) 1 tab DAILY PO Last administered on 06/20/18 08:35; Admin Dose 1 TAB; Start 05/29/18 at 09:00 Pantoprazole (Protonix Tab) 40 mg BID@ PO Last administered on 06/20/18 06:44; Admin Dose 40 MG; Start 06/02/18 at 18:00 Carvedilol (Coreg) 6.25 mg BID PO Last administered on 06/18/18 08:52; Admin Dose 6.25 MG; Start 06/09/18 at 21:00 Sacubitril/ Valsartan (Entresto 24 Mg-26 Mg) 1 tab BID PO Last administered on 06/20/18 08:37; Admin Dose 1 TAB; Start 06/12/18 at 21:00 SOHAN BASILIO Jun 20, 2018 16:28
--- NOTE | 2018-06-20 18:21 | DS ---
Date/Time of Note Date/Time of Note DATE: 06/20/18 TIME: 18:05 Discharge Summary Admission/Discharge Info Admit Date/Time May 28, 2018 at 19:26 Discharge Date/Time Jun 20, 2018 Discharge Diagnosis Occult lower GI bleed Patient Condition: Guarded Consults Dr. Hendrickson, gastroenterology Dr. Landis, nephrology Dr. Riddle, hematology Dr. Garcia, cardiology Procedures 05/11 colonoscopy 05/29 EGD 06/10 colonoscopy Hx of Present Illness DATE OF ADMISSION: 05/28/2018 CHIEF COMPLAINT: Rectal bleeding x1 week, weakness. HISTORY OF PRESENT ILLNESS: An 82-year-old female with past medical history of paroxysmal AFib on Eliquis, TAVR valve replacement, CHF, lower GI bleeding with severe anemia requiring blood transfusion last month when she was hospitalized here, and recent colonoscopy with internal hemorrhoids and diverticulosis, who comes in with GI bleeding. The patient states that symptoms have been going on for the last 1 to 2 weeks, pretty much since she was discharged on 05/12/2018. She says she has been taking her Eliquis at half the dose as recommended by her doctor. This was initially held when she was discharged on 05/12/2018. She denies any upper GI bleeding. She denies any chest pain but she has been having generalized weakness symptoms. She has noticed dark stool, not bright. No fevers or chills. No shortness of breath. No nausea or vomiting. No hemoptysis. When she came in today, she was found with a hemoglobin of 5.9 and the ER doctor ordered for 2 units of PRBC transfusion and that is currently being set up for patient to get right now, and a call was made out to the GI doctor to come see the patient which will occur later. Again, patient was recently hospitalized here from 05/09 to 05/12/2018. At that time, she had acute blood loss secondary to lower GI bleeding and had a colonoscopy as mentioned above at that time. PAST MEDICAL HISTORY: As stated above. ALLERGIES: NO KNOWN DRUG ALLERGIES. HOME MEDICATIONS: 1. Eliquis 2.5 mg daily. 2. Atorvastatin 10 mg at bedtime. 3. Coreg 6.25 mg daily. 4. Entresto 49/51 daily. 5. Aldactone 25 mg daily. 6. Calcium carbonate 600 mg b.i.d. 7. Lasix 40 mg daily. 8. Omeprazole 40 mg daily. 9. Levothyroxine 100 mcg every morning. 10. Vitamin B12 1000 mcg sublingual daily. 11. Multivitamin 1 tab daily. PAST SURGICAL HISTORY: Again, TAVR. She also had a pacemaker placed in the past and gallbladder removal in the past. FAMILY HISTORY: Noncontributory. SOCIAL HISTORY: Negative for smoking, drinking or IV drug abuse. Hospital Course During the course of her long hospitalization, the patient has had intermittent rectal bleeding, maroon colored sometimes bright red, seen in the toilet. Her apixaban was stopped on admission and she has been off all antiplatelets and anticoagulation. She had a colonoscopy on 05/11 to evaluate for bleed, but nothing was found. EGD was done 05/29 again with no visualized bleed. Tagged RBC scan was done 06/09 (was attempted unsuccessfully 05/29 but the IV infiltrated) and showed increased tracer activity consistent with bleed in the right lower abdomen, likely cecum. Colonoscopy was repeated 06/10 to the cecum which again did not show evidence of bleed. She has required 9 units total pRBCs during the admission. Otherwise, her Cr on admission was 2.3 and downtrended appropriately, now running 1.1-1.3. She has maintained her blood pressures well with pRBC transfusions and is continued on her beta shelley and Entresto. The patient reports some fatigue but otherwise is able to ambulate with assistance to the bathroom. She is in chronic atrial fibrillation. After discussion with GI staff; plan for transfer to [facility] for small bowel visualization either with double balloon push enteroscopy or capsule endoscopy. Home Meds Reported Medications Cyanocobalamin (Vitamin B-12) (Vitamin B-12) 1,000 Mcg Tab.subl, 1000 MCG SL DAILY 05/28/18 Multivitamin/Iron/Folic Acid (Centrum Adults Tablet) 1 Each Tablet, 1 EACH PO DAILY, TAB 05/28/18 Calcium Carbonate* (Calcium Carbonate*) 600 MG Ca Tab, 600 MG PO BID, TAB 05/28/18 Omeprazole* (Omeprazole*) 40 Mg Capsule.dr, 40 MG PO DAILY, #30 CAP 05/28/18 Atorvastatin Calcium (Atorvastatin Calcium) 10 Mg Tablet, 10 MG PO QHS, #30 TAB 05/28/18 Apixaban* (Eliquis*) 2.5 Mg Tablet, 2.5 MG PO DAILY, TAB 05/28/18 Sacubitril/Valsartan (Entresto 49 mg-51 mg Tablet) 1 Each Tablet, 1 EACH PO DAILY, TAB 05/28/18 Carvedilol* (Carvedilol*) 6.25 Mg Tablet, 6.25 MG PO DAILY, #60 TAB 05/28/18 Furosemide* (Furosemide*) 40 Mg Tablet, 40 MG PO DAILY, TAB 05/28/18 Spironolactone* (Aldactone*) 25 Mg Tablet, 25 MG PO DAILY, #30 TAB 05/28/18 Levothyroxine Sodium* (Levothyroxine Sodium*) 100 Mcg Tablet, 100 MCG PO BEFORE BREAKFAST, #30 TAB 05/28/18 Primary Care Provider Fernando Lambert MD Time spent on discharge: > 30 minutes Pending Labs Laboratory Tests Test 06/20/18 05:39 White Blood Count 6.3 10^3/ul (4.8-10.8) Red Blood Count 2.60 10^6/ul (4.20-5.40) Hemoglobin 7.8 g/dl (12.0-16.0) Hematocrit 25.1 % (37.0-47.0) Mean Corpuscular Volume 96.5 fl (82.0-101.0) Mean Corpuscular Hemoglobin 30.0 pg (29.0-33.0) Mean Corpuscular Hemoglobin Concent 31.1 g/dl (32.0-37.0) Red Cell Distribution Width 17.1 % (11.5-14.5) Platelet Count 108 10^3/UL (140-415) Mean Platelet Volume 9.4 fl (7.4-10.4) Immature Granulocytes % 0.600 % (0.001-0.429) Neutrophils % 75.7 % (39.0-77.0) Lymphocytes % 10.4 % (15.0-51.0) Monocytes % 9.0 % (0.0-11.0) Eosinophils % 3.2 % (0.0-7.0) Basophils % 1.1 % (0.0-2.0) Nucleated Red Blood Cells % 0.0 /100WBC (0.0-0.0) Immature Granulocytes # 0.040 10^3/ul (0.0-0.031) Neutrophils # 4.8 10^3/ul (1.6-7.5) Lymphocytes # 0.7 10^3/ul (0.8-2.9) Monocytes # 0.6 10^3/ul (0.3-0.9) Eosinophils # 0.2 10^3/ul (0.0-0.5) Basophils # 0.1 10^3/ul (0.0-0.1) Nucleated Red Blood Cells # 0.0 10^3/ul (0.0-0.0) Sodium Level 138 mmol/L (135-144) Potassium Level 4.4 mmol/L (3.5-5.1) Chloride Level 109 mmol/L (97-110) Carbon Dioxide Level 28 mmol/L (21-31) Anion Gap 1 (5-13) Blood Urea Nitrogen 24 mg/dl (7-20) Creatinine 1.05 mg/dl (0.44-1.00) Est Glomerular Filtrat Rate mL/min mL/min (>60) Glucose Level 90 mg/dl (70-220) Calcium Level 8.8 mg/dl (8.4-10.2) SHIRA ANTOINE MD Jun 20, 2018 18:16
--- NOTE | 2018-06-26 15:35 | RADRPT ---
PROCEDURE: 1. Selective celiac angiogram. 2. Selective SMA angiogram. 3. Selective ANA MARIA angiogram. 4. Distal abdominal aortogram Physician: Rachel Complications: None. Contrast: 60 cc Isovue 300 ASA classification: II CLINICAL INDICATION: Intermittent lower GI bleeding. Positive bleeding scan in the right lower quad rant. TECHNIQUE: After informed consent was obtained from the film, the right groin was prepped and drape d in standard sterile fashion. 1% lidocaine was used for local anesthesia. The right common femoral artery was accessed with a micropuncture needle. Track was serially dilated and a 5-Angolan the cathet er was advanced over Chang wire into the aorta. The Omni catheter was used to engage the origin of the celiac trunk and celiac angiogram was obtained. Next, the catheter was withdrawn into the superio r mesenteric artery, and SMA angiogram was performed. Next, the catheter was withdrawn into the dista l aorta and distal aortogram was obtained to identify the origin of the inferior mesenteric artery. N ext, the Omni catheter was used to engage the origin of the inferior mesenteric artery. Inferior mese nteric angiogram was obtained. Catheter was removed and hemostasis achieved. The patient or the proce dure well. There are no complications. Fluoro time: 1.9 minutes Number of images/sequences: 10 COMPARISON: None FINDINGS: 1. Mesenteric angiogram demonstrates no active bleeding, extravasation, angiodysplasia, pseudoaneury sm formation, or hypervascular mass. 2. 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 3. A small heavily diseased ANA MARIA was engaged 4. Distal abdominal aorta is patent. There is calcified plaquing throughout the aorta, but no hemody namically significant stenosis. Bilateral common and external iliac arteries are patent, and without hemodynamically significant disease. IMPRESSION: Mesenteric angiogram demonstrates no evidence of active bleeding, extravasation, angiodysplasia, or h ypervascular mass. RPTAT: HH .Jai Ramos MD, MD Date Time Electronically viewed and signed by .Jai Ramos MD, MD on 06/26/2018 15:34 .W/
== END 2018-06-20 17:50 | disposition short-term general hospital (02) | DRG 378 ==
LOC: E/R 16:45 → 6WM 19:26 → MS1 06-05 16:54 → 6WM 06-19 13:40
PROVIDERS: ADMIT Hospitalist; ATTEND Internal Medicine
PROC: 30233N1 Transfusion of Nonautologous Red Blood Cells into Peripheral Vein, Percutaneous Approach (ICD-10-PCS; 2018-05-28)
PROC: 0DB68ZX Excision of Stomach, Via Natural or Artificial Opening Endoscopic, Diagnostic (ICD-10-PCS; 2018-05-29)
PROC: 02HV33Z Insertion of Infusion Device into Superior Vena Cava, Percutaneous Approach (ICD-10-PCS; 2018-06-07)
PROC: 0DJD8ZZ Inspection of Lower Intestinal Tract, Via Natural or Artificial Opening Endoscopic (ICD-10-PCS; principal; 2018-06-10 14:30)
PROC: B415YZZ Fluoroscopy of Inferior Mesenteric Artery using Other Contrast (ICD-10-PCS; 2018-06-11)
PROC: B414YZZ Fluoroscopy of Superior Mesenteric Artery using Other Contrast (ICD-10-PCS; 2018-06-11)
PROC: B410YZZ Fluoroscopy of Abdominal Aorta using Other Contrast (ICD-10-PCS; 2018-06-11)
DX: K57.31 Diverticulosis of large intestine without perforation or abscess with bleeding (principal); N17.9 Acute kidney failure, unspecified; I13.0 Hypertensive heart and chronic kidney disease with heart failure and stage 1 through stage 4 chronic kidney disease, or unspecified chronic kidney disease; D62 Acute posthemorrhagic anemia; E44.1 Mild protein-calorie malnutrition; E87.1 Hypo-osmolality and hyponatremia; I50.22 Chronic systolic (congestive) heart failure; I42.9 Cardiomyopathy, unspecified; I31.3 Pericardial effusion (noninflammatory); D69.6 Thrombocytopenia, unspecified; E78.5 Hyperlipidemia, unspecified; E03.9 Hypothyroidism, unspecified; F03.90 Unspecified dementia, unspecified severity, without behavioral disturbance, psychotic disturbance, mood disturbance, and anxiety; I25.10 Atherosclerotic heart disease of native coronary artery without angina pectoris; I49.5 Sick sinus syndrome; I48.2 Chronic atrial fibrillation; K63.5 Polyp of colon; K20.9 Esophagitis, unspecified; K29.70 Gastritis, unspecified, without bleeding; K92.1 Melena; N18.9 Chronic kidney disease, unspecified; Z95.0 Presence of cardiac pacemaker; Z95.2 Presence of prosthetic heart valve; Z86.73 Personal history of transient ischemic attack (TIA), and cerebral infarction without residual deficits; Z79.01 Long term (current) use of anticoagulants
CPT/HCPCS: 36415; 36430; 36569; 71045; 74176; 74178; 74250; 76856; 76937; 78278; 80048; 80053; 80061; 81001; 81003; 82043; 82270; 82378; 82607; 82728; 82962; 83036; 83540; 83615; 83735; 83880; 84100; 84155; 84300; 84439; 84443; 84484; 85014; 85018; 85025; 85049; 85362; 85378; 85384; 85576; 85610; 85670; 85730; 86022; 86304; 86644; 86850; 86900; 86901; 86920; 88305; 92610; 93005; 93306; 97110; 97116; 97162; 97165; 97530; 97535; A9560; C1887; C9113; J1610; J1644; J2250; J2597; J3010; J3475; J7030; J7040; J7042; P9016; P9047; Q9967

== ENCOUNTER → 2018-07-24 | Outpatient (CLI) | payer MEDICARE, OTHER ==
[~2018-07-24] MED LIST changes: -CALC500T99 PO; +CALC600T24 PO; -CARV3.12 PO; +CARV6.2579 PO; -CENTSILV PO; -FERR325C PO; -FURO-109 PO; +FURO40TA4 PO; -LEVO-86 PO; +LEVO100T8 PO; +MULT-902 PO; +OMEP40CA6 PO; -PANT40TA4 PO; +SACU1TAB7 PO; +SPIR25TA PO; -[UNRECOGNIZED DRUG - CODE] PO; +[UNRECOGNIZED DRUG - CODE] SL
== END | disposition home or self-care (01) ==
LOC: RAD 16:10
PROVIDERS: ATTEND Internal Medicine
DX: J18.9 Pneumonia, unspecified organism (principal); I51.7 Cardiomegaly; J90 Pleural effusion, not elsewhere classified; J98.11 Atelectasis
CPT/HCPCS: 71046